=== PATIENT | male | born 1960 | race Caucasian/White ===

== ENCOUNTER 2019-12-02 14:25 | Emergency (ER) | payer OTHER, SELFPAY ==
[2019-12-02 14:28] VITALS: BP 117/83; PULSE 91; RESP 18; TEMP 36.7; O2SAT 96; BMI 29.2
--- NOTE | 2019-12-02 15:09 | ECG_ITS ---
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 [email or web address] specialty [email or web address] - [facility], inc.[employer]/store/NU/[id number] lila
--- NOTE | 2019-12-02 15:09 | XR_ITS ---
WS: [id number] PORTABLE CHEST HISTORY: chest pain COMPARISON: 03/07/2017 Lungs are clear and well expanded. No pleural effusion or pneumothorax. Cardiac size: Normal. Mediastinum/Aorta: Normal mediastinum. No osseous abnormality seen. XR/XR chest 1V portable [id number] IMPRESSION: Unremarkable portable chest.
--- NOTE | 2019-12-02 15:19 | W.ED.CHESTPA ---
HPI - Chest Pain General: Chief Complaint: Chest Pain Stated Complaint: cp Time Seen by Provider: 12/02/19 15:09 History of Present Illness: HPI narrative: 89-year-old male comes in complaining of dyspnea and fatigue for the last week. He has had a chest tightness he describes for the last 3 to 4 days has not had any nausea vomiting or diarrhea. He has been diaphoretic when he is working outside at times though he feels like it is more than is normal for him. He has not had any nose and insomnia. He has no known history of coronary artery disease or stroke. He denies any GI or symptoms is not had any hematemesis hematic keys the monitor he hematochezia. No respiratory symptoms besides just vaguely feeling short of breath at times he denies any fever. MD complaint: chest heaviness Pertinent past history: other (DM) Onset (ago): week(s) (1) Timing of current episode: episodic Prior episodes: Yes Onset: during rest and during exertion Pain location: substernal and left chest Pain radiation: none Severity: moderate Quality: tightness Relieving factors: rest Associated symptoms: Reports diaphoresis, dyspnea and fever(s); Deny abdominal pain, nausea or vomiting Treatment prior to arrival: none Review of Systems Const: Reports: fever(s) and diaphoresis ENMT: Denies: throat pain, ear or mastoid pain, nasal discharge or nasal congestion Card: Denies: chest pain, edema, dyspnea on exertion or orthopnea Resp: Reports: dyspnea GI: Denies: abdominal pain, nausea, vomiting, hematemesis, coffee ground emesis, diarrhea, constipation, bloating, hematochezia or melena : Denies: flank pain, dysuria, urinary frequency or urinary urgency Skin/Breast: Denies: rash or pruritus PFS ED PFSH: Medical History (Updated 12/02/19 @ 18:14 by Spencer Naylor DO) Diabetes mellitus Hyperlipidemia Hypertension Surgical History (Updated 12/02/19 @ 15:26 by Spencer Naylor DO) Hx of cholecystectomy Social History (Updated 12/02/19 @ 15:26 by Spencer Naylor DO) Smoking and tobacco status: never smoked Alcohol intake: never Physical Exam Const: COMMON NORMALS: no acute distress GENERAL APPEARANCE: cooperative and comfortable ORIENTATION/CONSCIOUSNESS: Yes awake, Yes oriented to person, Yes oriented to place and Yes oriented to time Eye: COMMON NORMALS: Equal, round and reactive pupils present, EOMs intact bilaterally, conjunctivae normal and no scleral icterus CONJUNCTIVA: Yes conjunctivae normal PUPIL: Yes Equal, round and reactive pupils present Neck/C-Spine: COMMON NORMALS: full ROM, no lymphadenopathy, supple and no JVD Lymph: LYMPHATIC: no lymphadenopathy noted and no lymphedema noted Resp: COMMON NORMALS: normal respiratory effort, No retractions, No use of accessory muscles and clear to auscultation bilaterally AUSCULTATION: clear to auscultation bilaterally Cardio: COMMON NORMALS: no JVD, regular rate, regular rhythm and No murmurs present (Cardio) RATE: regular rate RHYTHM: regular rhythm GI: COMMON NORMALS: Soft to palpation and No hepatosplenomegaly present AUSCULTATION: Yes normoactive bowel sounds PALPATION: Yes Soft to palpation, No Tenderness to palpation present (GI), No Guarding due to palpation present (GI) and Yes No hepatosplenomegaly present Extremity: COMMON NORMALS: normal to inspection, capillary refill normal, no clubbing, cyanosis or edema, no calf tenderness and no pedal edema Neuro: SENSORIUM/ORIENTATION: Yes oriented to person, Yes oriented to place and Yes oriented to time Skin: COMMON NORMALS: no rashes or lesions noted GENERAL SKIN EXAM: no rashes or lesions noted Course Vital Signs: Vital signs: Vital Signs Temperature 98.1 F 12/02/19 14:28 Pulse Rate 84 12/02/19 18:38 Respiratory Rate 18 12/02/19 18:38 Blood Pressure 120/81 12/02/19 18:38 Pulse Oximetry 97 12/02/19 18:38 MDM - Chest Pain MDM Narrative: Medical decision making narrative: Reviewed findings with the patient. We will go and get him set up for a sestamibi stress test continue baby aspirin daily for worsening change symptoms return to the emergency room. Lab Data: Labs: Lab Results 12/02/19 12/02/19 12/02/19 Range/Units 15:34 15:34 15:34 WBC 6.3 (4.0-10.0) 10^3/ uL RBC 4.53 (4.1-5.3) 10^6/u L Hgb 13.8 (11.7-16.6) g/dL Hct 40.9 L (42.0-52.0) % MCV 90.3 (80-94) fL MCH 30.5 (28.0-34.0) pg MCHC 33.7 (30.0-36.0) g/dL RDW 12.6 (12.1-15.1) % Plt Count 252 (130-400) 10^3/c mm MPV 11.0 H (7.4-10.4) fL Neut % (Auto) 64.6 % Lymph % (Auto) 22.4 % [place] % (Auto) 7.3 % Eos % (Auto) 4.4 % Baso % (Auto) 0.8 % Neut # (Auto) 4.07 (1.8-7.7) 10^3/u L Lymph # (Auto) 1.4 (0.8-4.8) 10^3/u L [place] # (Auto) 0.5 (0.2-0.9) 10^3/u L Eos # (Auto) 0.3 (0.0-0.8) 10^3/u L Baso # (Auto) 0.1 (0.0-0.1) 10^3/u L Nucleated RBC % (a uto) 0 % Nucleated RBCs # 0.0 /100WBC Sodium 133 L (136-145) mmol/L Potassium 4.9 (3.5-5.1) mmol/L Chloride 98 (98-107) mmol/L Carbon Dioxide 23 (22-29) mmol/L Anion Gap 16.9 (5-19) BUN 29 H (6-20) mg/dL Creatinine 1.2 (0.7-1.2) mg/dL GFR Calculation 62.0 L (90-130) mL/min Glucose 450 H (65-115) mg/dL Calculated Osmolal ity 293 (285-295) mOsm/k g Calcium 9.9 (8.5-10.5) mg/dL Total Bilirubin 0.2 (0.15-1.2) mg/dL AST 16 (0-40) U/L ALT 22 (0-41) U/L Alkaline Phosphata se 69 (40-130) IU/L Troponin T Baselin e 15 (0-15) ng/L Troponin T 120 Min [place] (0-15) ng/L Delta Troponin T (0-10) ABS# Total Protein 7.4 (6.6-8.7) g/dL Albumin 4.4 (3.5-5.2) g/dL Globulin 3.0 (1.3-4.6) g/dL 12/02/19 Range/Units 17:27 WBC (4.0-10.0) 10^3/ uL RBC (4.1-5.3) 10^6/u L Hgb (11.7-16.6) g/dL Hct (42.0-52.0) % MCV (80-94) fL MCH (28.0-34.0) pg MCHC (30.0-36.0) g/dL RDW (12.1-15.1) % Plt Count (130-400) 10^3/c mm MPV (7.4-10.4) fL Neut % (Auto) % Lymph % (Auto) % [place] % (Auto) % Eos % (Auto) % Baso % (Auto) % Neut # (Auto) (1.8-7.7) 10^3/u L Lymph # (Auto) (0.8-4.8) 10^3/u L [place] # (Auto) (0.2-0.9) 10^3/u L Eos # (Auto) (0.0-0.8) 10^3/u L Baso # (Auto) (0.0-0.1) 10^3/u L Nucleated RBC % (a uto) % Nucleated RBCs # /100WBC Sodium (136-145) mmol/L Potassium (3.5-5.1) mmol/L Chloride (98-107) mmol/L Carbon Dioxide (22-29) mmol/L Anion Gap (5-19) BUN (6-20) mg/dL Creatinine (0.7-1.2) mg/dL GFR Calculation (90-130) mL/min Glucose (65-115) mg/dL Calculated Osmolal ity (285-295) mOsm/k g Calcium (8.5-10.5) mg/dL Total Bilirubin (0.15-1.2) mg/dL AST (0-40) U/L ALT (0-41) U/L Alkaline Phosphata se (40-130) IU/L Troponin T Baselin e (0-15) ng/L Troponin T 120 Min [place] 12.70 (0-15) ng/L Delta Troponin T -2.30 L (0-10) ABS# Total Protein (6.6-8.7) g/dL Albumin (3.5-5.2) g/dL Globulin (1.3-4.6) g/dL Discharge Plan Discharge Patient Disposition: Home Clinical Impression: Atypical chest pain Condition: Stable Prescriptions: No Action polyethylene glycol 3350 17 gram Powder In Packet 34 g PO DAILY RF: 0 pantoprazole 40 mg tablet,delayed release (DR/EC) 40 mg PO BID RF: 0 pregabalin 150 mg Capsule 150 mg PO BID RF: 0 semaglutide 0.25 mg or 0.5 mg(2 mg/1.5 mL) Pen Injector See Rx Instructions .ROUTE .COMPLEX RF: 0 magnesium oxide 400 mg magnesium Tablet 400 mg PO DAILY RF: 0 amlodipine 5 mg Tablet 5 mg PO DAILY RF: 0 Aspirin Low Dose 81 mg Tablet,Delayed Release (Dr/Ec) 81 mg PO DAILY RF: 0 metoprolol tartrate 50 mg Tablet 25 mg PO DAILY RF: 0 Renal-Sylvester 0.8 mg Tablet 1 tab PO DAILY RF: 0 hydrochlorothiazide 25 mg Tablet 12.5 mg PO DAILY RF: 0 lisinopril 2.5 mg Tablet 2.5 mg PO DAILY RF: 0 cholecalciferol (vitamin D3) 25 mcg (1,000 unit) Tablet 25 mcg PO DAILY RF: 0 alogliptin 25 mg Tablet 25 mg PO DAILY RF: 0 Discharge Orders: Discharge Order (Routine); Ordered 12/02/19 Ordered By: Spencer Naylor Referrals: Laron Chauhan [Primary Care Provider] - Discharge Diet: Advance as tolerated Discharge Activity: Limit activity as instructed Activity Restrictions/Additional Instructions: Case management will call to set up a stress test and follow-up with cardiology. Follow-up with your primary care doctor for further evaluation as we discussed. Discharge Date/Time: 12/02/19 18:40 Coding Level of Care Code ED Biomass Plant Manager for Randyg Fwd Exam Comprehensive
[2019-12-02] MEDS: aspirin 81 mg Chew Tablet 324 MG PO (15:35)
[2019-12-02 15:40] LABS: Basophils # 0.1 10^3/uL (0.0-0.1); Basophils % 0.8 %; Eosinophils # 0.3 10^3/uL (0.0-0.8); Eosinophils % 4.4 %; Hematocrit 40.9 % (42.0-52.0); Hemoglobin 13.8 g/dL (11.7-16.6); Lymphocytes # 1.4 10^3/uL (0.8-4.8); Lymphocytes % 22.4 %; Mean Corpuscular HGB Conc 33.7 g/dL (30.0-36.0); Mean Corpuscular Hemoglobin 30.5 pg (28.0-34.0); Mean Corpuscular Volume 90.3 fL (80-94); Monocytes # 0.5 10^3/uL (0.2-0.9); Monocytes % 7.3 %; Neutrophils # 4.07 10^3/uL (1.8-7.7); Neutrophils % 64.6 %; Nucleated Red Blood Cells % 0 %; Platelet Count 252 10^3/cmm (130-400); Red Blood Count 4.53 10^6/uL (4.1-5.3); Red Cell Distribution Width 12.6 % (12.1-15.1); White Blood Count 6.3 10^3/uL (4.0-10.0)
[2019-12-02 15:55] LABS: Alanine Aminotransferase 22 U/L (0-41); Albumin Level 4.4 g/dL (3.5-5.2); Alkaline Phosphatase 69 IU/L (40-130); Anion Gap 16.9 (5-19); Aspartate Amino Transferase 16 U/L (0-40); Blood Urea Nitrogen 29 mg/dL (6-20); Calcium 9.9 mg/dL (8.5-10.5); Carbon Dioxide 23 mmol/L (22-29); Chloride 98 mmol/L (98-107); Glucose 450 mg/dL (65-115); Osmolality Calculated 293 mOsm/kg (285-295); Potassium 4.9 mmol/L (3.5-5.1); Sodium 133 mmol/L (136-145); Total Bilirubin 0.2 mg/dL (0.15-1.2); Total Protein 7.4 g/dL (6.6-8.7)
[2019-12-02 15:57] LABS: Troponin(5th) Baseline 15 ng/L (0-15)
--- NOTE | 2019-12-02 17:09 | ECG_ITS ---
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 Measurements Intervals [place] Rate: 81 P: 37 TN: 194 QRS: -36 QRSD: 109 T: 25 QT: 367 QTc: 427 Interpretive Statements SINUS RHYTHM LEFT AXIS DEVIATION [QRS AXIS < -30] PATTERN CONSISTENT WITH PULMONARY DISEASE SEPTAL MYOCARDIAL INFARCTION , PROBABLY OLD [40+ ms Q WAVE IN V1/V2] Compared to ECG 12/02/2019 14:33:14 No significant changes Electronically Signed On 12-02-2019 20:41:14 CDT by Abdirizak Brewer M.D. [email or web address]/NU/[id number] lila
[2019-12-02 18:38] VITALS: BP 120/81; PULSE 84; RESP 18; O2SAT 97
--- NOTE | 2019-12-04 10:53 | DCPLANNER ---
manager company had message to schedule an outpatient stress test for patient. Patient has [facility], patient will have to be seen at [facility] and the physician at [facility] will need to order stress test if deemed necessary. manager company called [facility], spoke with Delfina, gave her the patients information. Clinic will call patient with appointment information. manager company called August with the [place] and told her that patient was seen in the ED and needed follow up with [facility].
--- NOTE | 2019-12-17 08:27 | DCPLANNER ---
Patient had a follow up appointment scheduled for 12.10.19 with [facility] - patient did attend appointment.
== END 2019-12-02 18:40 | disposition home or self-care (01) ==
PROVIDERS: Emergency Provider Family Medicine; PCP Internal Medicine
DX: R07.89 Other chest pain (principal); Z79.82 Long term (current) use of aspirin; E11.9 Type 2 diabetes mellitus without complications; E78.5 Hyperlipidemia, unspecified; I10 Essential (primary) hypertension
CPT/HCPCS: 12345; 36415; 71045; 80053; 84484; 85025; 93005; 99281; 99284

== ENCOUNTER → 2020-01-05 09:36 | Outpatient (BNVA) | payer OTHER, SELFPAY | PROVIDERS: PCP Family Medicine; Referring Provider Family Medicine; Visit Provider Anesthesiology Pain Medicine | DX: M54.16 Radiculopathy, lumbar region (principal); M47.816 Spondylosis without myelopathy or radiculopathy, lumbar region; M51.36 Other intervertebral disc degeneration, lumbar region; M54.9 Dorsalgia, unspecified; M19.011 Primary osteoarthritis, right shoulder; M62.830 Muscle spasm of back | CPT/HCPCS: 99205 ==

== ENCOUNTER 2020-04-12 16:32 | Emergency (ER) | payer OTHER, SELFPAY ==
[2020-04-12 16:34] VITALS: BP 127/85; PULSE 96; RESP 18; TEMP 36.4; O2SAT 96; BMI 28.8
[2020-04-12 16:56] LABS: Glucose Point of Care > 600 mg/dL (70-110)
--- NOTE | 2020-04-12 17:08 | W.ED.RECABL ---
HPI - Recheck/Abnormal Lab/Rx General: Chief Complaint: Recheck/Abnormal Lab/Rx Stated Complaint: Unusual Blood Sugar Levels Time Seen by Provider: 04/12/20 17:03 Source: patient Mode of arrival: ambulatory Limitations: no limitations History of Present Illness: HPI narrative: 59-year-old male who states that he has been out of his diabetic medicines for the last month. He [facility] and it was high. He states he had some slight thirstiness but otherwise he feels fine and has no complaints. He states he sent him here due to his high blood sugar. He denies any worsening or improving factors. Review of Systems Const: Denies: fever(s), chills, body aches or change in appetite Eyes: Denies: blurry vision or eye discomfort ENMT: Denies: throat pain or dental pain Card: Denies: chest pain Resp: Denies: dyspnea GI: Denies: abdominal pain, nausea, vomiting or diarrhea : Denies: dysuria Musc: Denies: neck pain or back pain Skin/Breast: Denies: rash Neuro: Denies: headache(s) Psych: Denies: depression Tono/Lymph: Denies: easy bruising All/Imm: Denies: urticaria PFSH ED PFSH: Medical History (Updated 04/12/20 @ 17:47 by Sakshi Henderson MD) Diabetes mellitus Hyperlipidemia Hypertension Surgical History Hx of cholecystectomy Family History Denies family history of Anesthesia complication Social History Smoking and tobacco status: never smoked Alcohol intake: never Physical Exam Const: COMMON NORMALS: no acute distress, patient oriented x3 and healthy appearing HENMT: COMMON NORMALS: normocephalic and atraumatic HEAD & SCALP: normocephalic and atraumatic Eye: COMMON NORMALS: Equal, round and reactive pupils present and EOMs intact bilaterally PUPIL: Yes Equal, round and reactive pupils present Neck/C-Spine: COMMON NORMALS: full ROM and supple Chest: COMMONS NORMALS: normal inspection of the chest and normal palpation of entire chest wall Resp: COMMON NORMALS: normal respiratory effort, No retractions, No use of accessory muscles and clear to auscultation bilaterally AUSCULTATION: clear to auscultation bilaterally Cardio: COMMON NORMALS: regular rate, regular rhythm and No murmurs present (Cardio) RATE: regular rate RHYTHM: regular rhythm GI: COMMON NORMALS: Normal to inspection, nondistended, normoactive bowel sounds present, Soft to palpation, non-tender and no masses PALPATION: Yes Soft to palpation Extremity: COMMON NORMALS: normal to inspection and full ROM Neuro: COMMON NORMALS: patient oriented x3, moves all extremities and no focal motor deficits Psych: COMMON NORMALS: mental status grossly normal, Normal thought process present and cooperative THOUGHT PROCESS: Normal thought process present Skin: COMMON NORMALS: no rashes or lesions noted and no wounds GENERAL SKIN EXAM: no rashes or lesions noted Course Vital Signs: Vital signs: Vital Signs Temperature 97.5 F L 04/12/20 16:34 Pulse Rate 84 04/12/20 19:07 Respiratory Rate 15 04/12/20 19:07 Blood Pressure 131/85 04/12/20 19:07 Pulse Oximetry 94 04/12/20 19:07 MDM - Recheck/Abnormal Lab/Rx MDM Narrative: Medical decision making narrative: Patient presents here with hyperglycemia due to noncompliance. Will represcribe him his diabetic medicines. He is not in DKA and his blood sugar is much improved. He is stable for discharge and is to follow-up his PCP in 3 to 5 days and return if worsening. He understands agrees to plan. Lab Data: Labs: Lab Results 04/12/20 04/12/20 04/12/20 Range/Units 16:51 17:10 17:10 WBC 10.8 H (4.0-10.0) 10^3/ uL RBC 4.96 (4.1-5.3) 10^6/u L Hgb 15.1 (11.7-16.6) g/dL Hct 44.9 (42.0-52.0) % MCV 90.5 (80-94) fL MCH 30.4 (28.0-34.0) pg MCHC 33.6 (30.0-36.0) g/dL RDW 12.0 L (12.1-15.1) % Plt Count 260 (130-400) 10^3/c mm MPV 11.1 H (7.4-10.4) fL Neut % (Auto) 71.1 % Lymph % (Auto) 16.7 % [place] % (Auto) 6.8 % Eos % (Auto) 3.6 % Baso % (Auto) 0.8 % Neut # (Auto) 7.69 (1.8-7.7) 10^3/u L Lymph # (Auto) 1.8 (0.8-4.8) 10^3/u L [place] # (Auto) 0.7 (0.2-0.9) 10^3/u L Eos # (Auto) 0.4 (0.0-0.8) 10^3/u L Baso # (Auto) 0.1 (0.0-0.1) 10^3/u L Nucleated RBC % (a uto) 0 % Nucleated RBCs # 0.0 /100WBC Sodium 128 L (136-145) mmol/L Potassium 4.5 (3.5-5.1) mmol/L Chloride 94 L (98-107) mmol/L Carbon Dioxide 24 (22-29) mmol/L Anion Gap 14.5 (5-19) BUN 28 H (6-20) mg/dL Creatinine 1.5 H (0.7-1.2) mg/dL GFR Calculation 47.9 L (90-130) mL/min Glucose 631 H* (65-115) mg/dL POC Glucose > 600 (70-110) mg/dL Calculated Osmolal ity 301 H (285-295) mOsm/k g Calcium 9.8 (8.5-10.5) mg/dL Total Bilirubin 0.3 (0.15-1.2) mg/dL AST 13 (0-40) U/L ALT 18 (0-41) U/L Alkaline Phosphata se 103 (40-130) IU/L Total Protein 8.3 (6.6-8.7) g/dL Albumin 4.8 (3.5-5.2) g/dL Globulin 3.5 (1.3-4.6) g/dL 04/12/20 04/12/20 Range/Units 18:17 19:00 WBC (4.0-10.0) 10^3/ uL RBC (4.1-5.3) 10^6/u L Hgb (11.7-16.6) g/dL Hct (42.0-52.0) % MCV (80-94) fL MCH (28.0-34.0) pg MCHC (30.0-36.0) g/dL RDW (12.1-15.1) % Plt Count (130-400) 10^3/c mm MPV (7.4-10.4) fL Neut % (Auto) % Lymph % (Auto) % [place] % (Auto) % Eos % (Auto) % Baso % (Auto) % Neut # (Auto) (1.8-7.7) 10^3/u L Lymph # (Auto) (0.8-4.8) 10^3/u L [place] # (Auto) (0.2-0.9) 10^3/u L Eos # (Auto) (0.0-0.8) 10^3/u L Baso # (Auto) (0.0-0.1) 10^3/u L Nucleated RBC % (a uto) % Nucleated RBCs # /100WBC Sodium (136-145) mmol/L Potassium (3.5-5.1) mmol/L Chloride (98-107) mmol/L Carbon Dioxide (22-29) mmol/L Anion Gap (5-19) BUN (6-20) mg/dL Creatinine (0.7-1.2) mg/dL GFR Calculation (90-130) mL/min Glucose (65-115) mg/dL POC Glucose 443 335 (70-110) mg/dL Calculated Osmolal ity (285-295) mOsm/k g Calcium (8.5-10.5) mg/dL Total Bilirubin (0.15-1.2) mg/dL AST (0-40) U/L ALT (0-41) U/L Alkaline Phosphata se (40-130) IU/L Total Protein (6.6-8.7) g/dL Albumin (3.5-5.2) g/dL Globulin (1.3-4.6) g/dL Discharge Plan Discharge Patient Disposition: Home Clinical Impression: Hyperglycemia Condition: Stable Prescriptions: Continued alogliptin 25 mg Tablet 25 mg PO DAILY Qty: 30 RF: 0 Discontinued pregabalin 150 mg Capsule 150 mg PO BID RF: 0 No Action nitroglycerin 0.4 mg tablet, sublingual 0.4 mg SUBLINGUAL Q5M PRN (Reason: chest pain) Qty: 25 RF: 2 tizanidine 2 mg tablet 2 mg PO BID PRN (Reason: muscle spasticity) Qty: 60 RF: 0 methylprednisolone acetate [Depo-Medrol] 40 mg/mL suspension 40 mg Infiltration ONCE Qty: 1 RF: 0 bupivacaine (PF) 0.25 % (2.5 mg/mL) solution 5 ml Infiltration ONCE Qty: 1 RF: 0 methylprednisolone acetate [Depo-Medrol] 40 mg/mL suspension 40 mg Infiltration ONCE Qty: 1 RF: 0 bupivacaine (PF) 0.25 % (2.5 mg/mL) solution 2 ml epidural ONCE Qty: 1 RF: 0 pregabalin 150 mg Capsule 150 mg PO BID RF: 0 polyethylene glycol 3350 [Miralax] 17 gram Powder In Packet 34 g PO DAILY RF: 0 pantoprazole 40 mg tablet,delayed release (DR/EC) 40 mg PO BID RF: 0 semaglutide 0.25 mg or 0.5 mg(2 mg/1.5 mL) Pen Injector See Rx Instructions .ROUTE .COMPLEX RF: 0 magnesium oxide 400 mg magnesium Tablet 400 mg PO DAILY RF: 0 amlodipine 5 mg Tablet 5 mg PO DAILY RF: 0 aspirin [Aspirin Low Dose] 81 mg Tablet,Delayed Release (Dr/Ec) 81 mg PO DAILY RF: 0 metoprolol tartrate 50 mg Tablet 25 mg PO DAILY RF: 0 hydrochlorothiazide 25 mg Tablet 12.5 mg PO DAILY RF: 0 lisinopril 2.5 mg Tablet 2.5 mg PO DAILY RF: 0 cholecalciferol (vitamin D3) 25 mcg (1,000 unit) Tablet 25 mcg PO DAILY RF: 0 Discharge Orders: Discharge ED (Routine); Ordered 04/12/20 Ordered By: Sakshi Henderson Referrals: Pam Diaz MD [Primary Care Provider] - Discharge Diet: Advance as tolerated Discharge Activity: Resume usual activity Patient Instructions: Diabetic Hyperglycemia (ED) Coding Level of Care Code ED Clam Grader for Chg Fwd Exam Comprehensive
[2020-04-12] MEDS: sodium chloride 0.9% 1,000 ML 999 ML IV ×2 (17:15→17:58)
[2020-04-12] MEDS: insulin regular-human 100 units/1 mL 13 UNIT IVP (17:15)
[2020-04-12 17:22] VITALS: BP 125/97; PULSE 94; RESP 16; O2SAT 97
[2020-04-12 17:34] LABS: Basophils # 0.1 10^3/uL (0.0-0.1); Basophils % 0.8 %; Eosinophils # 0.4 10^3/uL (0.0-0.8); Eosinophils % 3.6 %; Hematocrit 44.9 % (42.0-52.0); Hemoglobin 15.1 g/dL (11.7-16.6); Lymphocytes # 1.8 10^3/uL (0.8-4.8); Lymphocytes % 16.7 %; Mean Corpuscular HGB Conc 33.6 g/dL (30.0-36.0); Mean Corpuscular Hemoglobin 30.4 pg (28.0-34.0); Mean Corpuscular Volume 90.5 fL (80-94); Mean Platelet Volume 11.1 fL (7.4-10.4); Monocytes # 0.7 10^3/uL (0.2-0.9); Monocytes % 6.8 %; Neutrophils # 7.69 10^3/uL (1.8-7.7); Neutrophils % 71.1 %; Nucleated Red Blood Cells % 0 %; Platelet Count 260 10^3/cmm (130-400); Red Blood Count 4.96 10^6/uL (4.1-5.3); White Blood Count 10.8 10^3/uL (4.0-10.0)
[2020-04-12] MEDS: LORazepam 2 mg/mL INJ 1 mL 1 MG IVP (18:11)
[2020-04-12 18:20] LABS: Glucose Point of Care 443 mg/dL (70-110)
[2020-04-12 18:29] LABS: Alanine Aminotransferase 18 U/L (0-41); Albumin Level 4.8 g/dL (3.5-5.2); Alkaline Phosphatase 103 IU/L (40-130); Anion Gap 14.5 (5-19); Aspartate Amino Transferase 13 U/L (0-40); Blood Urea Nitrogen 28 mg/dL (6-20); Calcium 9.8 mg/dL (8.5-10.5); Carbon Dioxide 24 mmol/L (22-29); Chloride 94 mmol/L (98-107); Globulin 3.5 g/dL (1.3-4.6); Glomerular Filtration Rate 47.9 mL/min (90-130); Osmolality Calculated 301 mOsm/kg (285-295); Potassium 4.5 mmol/L (3.5-5.1); Sodium 128 mmol/L (136-145); Total Bilirubin 0.3 mg/dL (0.15-1.2); Total Protein 8.3 g/dL (6.6-8.7)
[2020-04-12 18:30] LABS: Glucose 631 mg/dL (65-115)
[2020-04-12 19:04] LABS: Glucose Point of Care 335 mg/dL (70-110)
[2020-04-12 19:07] VITALS: BP 131/85; PULSE 84; RESP 15; O2SAT 94
== END 2020-04-12 19:08 | disposition home or self-care (01) ==
PROVIDERS: Emergency Provider Emergency Medicine; PCP Family Medicine
DX: E11.65 Type 2 diabetes mellitus with hyperglycemia (principal); Z79.82 Long term (current) use of aspirin; E78.5 Hyperlipidemia, unspecified; I10 Essential (primary) hypertension
CPT/HCPCS: 12345; 36416; 80053; 82962; 85025; 96361; 96374; 96375; 99283; J1815; J2060; J7030

== ENCOUNTER → 2020-09-12 09:46 | Outpatient (BNVA) | payer OTHER, SELFPAY | PROVIDERS: PCP Family Medicine; Referring Provider Family Medicine; Visit Provider Anesthesiology Pain Medicine | DX: M51.36 Other intervertebral disc degeneration, lumbar region (principal); M51.16 Intervertebral disc disorders with radiculopathy, lumbar region; M47.816 Spondylosis without myelopathy or radiculopathy, lumbar region; M54.9 Dorsalgia, unspecified; M25.511 Pain in right shoulder; M19.019 Primary osteoarthritis, unspecified shoulder; M62.830 Muscle spasm of back; Z79.891 Long term (current) use of opiate analgesic | CPT/HCPCS: 99214 ==

== ENCOUNTER 2020-09-14 11:45 | Emergency (ER) | payer OTHER, SELFPAY ==
[2020-09-14 12:02] VITALS: PULSE 122; RESP 18; TEMP 37.9; O2SAT 98; BMI 29.2
--- NOTE | 2020-09-14 12:35 | XR_ITS ---
WS: [id number] Portable AP upright chest, 09/14/2020 Clinical Data: fever/chills Comparison: Portable Chest, 12/02/2019. Findings: No nodules, masses or effusions are seen. The heart is normal. The pulmonary vascularity is not increased. No pneumonia or pneumothorax is seen. XR/XR chest 1V portable [id number] Impression: Negative chest.
== END 2020-09-14 14:42 | disposition left against medical advice (07) ==
DX: Z53.21 Procedure and treatment not carried out due to patient leaving prior to being seen by health care provider (principal)
CPT/HCPCS: 71045; 99282

== ENCOUNTER → 2020-10-20 10:37 | Outpatient (BNVA) | payer OTHER, SELFPAY | PROVIDERS: PCP Family Medicine; Visit Provider Anesthesiology Pain Medicine | DX: M51.16 Intervertebral disc disorders with radiculopathy, lumbar region (principal); M51.36 Other intervertebral disc degeneration, lumbar region; M47.816 Spondylosis without myelopathy or radiculopathy, lumbar region; M19.011 Primary osteoarthritis, right shoulder; M54.9 Dorsalgia, unspecified; M62.830 Muscle spasm of back; Z79.891 Long term (current) use of opiate analgesic | CPT/HCPCS: 99213 ==

== ENCOUNTER 2020-10-31 16:57 | Outpatient (CLI) | payer OTHER, SELFPAY ==
--- NOTE | 2020-10-31 17:30 | MR_ITS ---
WS: [id number] MRI LUMBAR SPINE NONCONTRAST HISTORY: M51.16 - Intervertebral disc disorders with radiculopathy..., LEFT leg radiculopathy. COMPARISON: None available. TECHNIQUE: Sagittal and axial multisequence imaging is submitted. Mild straightening of the normal lumbar lordosis and LEFT curvature. L5 anterolisthesis by 3 mm. Moderate degenerative disc space narrowing and desiccation and vertebral body osteophytes. Small amou nt of marrow edema along the adjacent endplates of T12-L1. Conus terminates normally at L1-2 disc level. L1-L2: Mild annular disc bulging. No stenosis. L2-L3: Moderate annular disc bulging with mild ligamentum flavum disease and facet arthritis. LEFT pa racentral disc protrusion with mild encroachment into the LEFT lateral recess. Mild central and moder ate bilateral subarticular recess stenosis. Disc encroaches into the foramina without contact. Increa se fluid in the LEFT facet joint. L3-L4: Diffuse moderate annular disc bulging with a central disc protrusion. Mild bilateral ligamentu m flavum disease and facet arthritis. There is moderate central, bilateral lateral recess, subarticul ar recess and foraminal stenosis. L4-L5: Diffuse annular disc bulging and osteophytic ridging. Facet joint arthritis and ligamentum fla vum arthritis contributing to moderate to severe central, bilateral subarticular recess and foraminal stenosis. Suspect focal disc protrusion in the LEFT foramen. L5-S1: Mild annular disc bulging and osteophytic ridging. Severe LEFT foraminal stenosis. LEFT renal cyst, 13 mm. MR/MR lumbar spine wo con* [id number] IMPRESSION: 1. Multilevel stenoses as described above. 2. Severe LEFT foraminal stenosis at L5-S1 and osteophyte disease. 3. Moderate to severe central, bilateral subarticular recess and foraminal teodoro nosis at L4-5. Suspect additional focal disc protrusion in the LEFT foramen. 4. Moderate central, bilateral lateral recess, subarticular recess and foramin al stenosis at L3-4. 5. Mild central with moderate bilateral subarticular recess stenosis at L2-3.
== END 2020-10-31 16:58 | disposition home or self-care (01) ==
PROVIDERS: PCP Family Medicine; Visit Provider Anesthesiology Pain Medicine
DX: M51.16 Intervertebral disc disorders with radiculopathy, lumbar region (principal); M48.07 Spinal stenosis, lumbosacral region; M48.061 Spinal stenosis, lumbar region without neurogenic claudication
CPT/HCPCS: 72148

== ENCOUNTER 2020-11-25 09:54 | Emergency (ER) | payer OTHER, SELFPAY ==
[2020-11-25 10:35] VITALS: BP 124/73; PULSE 82; RESP 16; TEMP 36.7; O2SAT 98; BMI 29.2
--- NOTE | 2020-11-25 11:06 | ECG_ITS ---
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: : 1960 Requested By: Ren Joyner Order Number: [id number] Reading MD: EUGENIA GARDNER Measurements Intervals [place] Rate: 81 P: 5 HI: 156 QRS: -35 QRSD: 102 T: 29 QT: 358 QTc: 418 Interpretive Statements SINUS RHYTHM MARKED LEFT AXIS DEVIATION [QRS AXIS < -30] PATTERN CONSISTENT WITH PULMONARY DISEASE INTERPRETATION BASED ON A DEFAULT AGE OF 40 YEARS Compared to ECG 12/02/2019 17:29:23 Myocardial infarct finding no longer present Electronically Signed On 11-25-2020 19:24:21 CDT by EUGENIA GARDNER [id number] f
--- NOTE | 2020-11-25 11:06 | XR_ITS ---
WS: [id number] Portable AP upright chest, 11/25/2020 Clinical Data: Chest Pain Comparison: Portable chest, 09/14/2020. Findings: No nodules, masses or effusions are seen. The heart is normal. The pulmonary vascularity is not increased. No pneumonia or pneumothorax is seen. There are monitor leads on the chest wall. XR/XR chest 1V portable [id number] Impression: Negative chest.
--- NOTE | 2020-11-25 11:19 | W.ED.CHESTPA ---
HPI - Chest Pain General: Chief Complaint: Chest Pain Stated Complaint: CP yesterday-now resolved Time Seen by Provider: 11/25/20 11:17 History of Present Illness: HPI narrative: This patient is a 60-year-old male who presents to the emergency department with complaint of epigastric/substernal chest pain. States it hurts worse when he leans forward and easier when he leans back. Patient states he has been eating Rolaids for the past 24 hours without relief. Patient states he was also sweaty this morning and thought he needed to come get checked out. Patient states he has been referred to cardiology by the DC and is scheduled to get a stress test but has not happened yet. Patient denies any significant cardiac history. Will do medical evaluation treat as needed patient does have a history of hypertension and diabetes. MD complaint: chest pain Onset (ago): day(s) Timing of current episode: episodic and still present Onset: during exertion Pain location: substernal and epigastric Pain radiation: none Severity: moderate Quality: aching Relieving factors: nothing Exacerbating factors: nothing Associated symptoms: Reports abdominal pain and nausea; Deny dyspnea, fever(s), palpitations or vomiting Review of Systems General: Reports: 10 or more systems reviewed and unremarkable except in HPI and below Const: Denies: fever(s), chills, body aches or fatigue Eyes: Denies: change in vision or blurry vision ENMT: Denies: throat pain, hoarseness or mouth pain Card: Reports: chest pain; Denies: palpitations, irregular heart rhythm, edema, swelling of feet/ankles or lightheadedness Resp: Denies: dyspnea, productive cough, non-productive cough, wheezing or pain on inspiration GI: Reports: abdominal pain and nausea; Denies: vomiting : Denies: flank pain, dysuria, urinary frequency, urinary urgency or urinary hesitancy Musc: Denies: neck pain, back pain, extremity pain, extremity swelling, joint pain, joint swelling, joint redness, joint warmth or limited range of motion Skin/Breast: Denies: rash, pruritus, erythema or skin tenderness Neuro: Denies: headache(s), numbness in extremities or weakness in extremities Psych: Denies: anxiety or depression PFS ED PFSH: Medical History Diabetes mellitus 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 Hyperlipidemia Hypertension residential (current) use of opiate analgesic Pain management contract signed Surgical History Hx of appendectomy Hx of cholecystectomy Hx of foot surgery Family History Denies family history of Anesthesia complication Social History Smoking and tobacco status: never smoked Alcohol intake: never History of recent travel: No Physical Exam Const: COMMON NORMALS: no acute distress, average body habitus, patient oriented x3, no limitations, healthy appearing, alert and well nourished HENMT: COMMON NORMALS: normocephalic, atraumatic, hearing grossly normal bilaterally, external ears normal, EAC's normal, TM's normal bilaterally, Normal external nose present, Normal nasal mucous membranes and turbinates present, moist oral mucous membranes, oropharynx normal, dentition normal and gingiva normal HEAD & SCALP: normocephalic and atraumatic NOSE: Normal external nose present and Normal nasal mucous membranes and turbinates present EXTERNAL EAR: Yes external ears normal EXTERNAL AUDITORY CANAL: EAC's normal TYMPANIC MEMBRANE: TM's normal bilaterally Neck/C-Spine: COMMON NORMALS: full ROM, no lymphadenopathy, supple, no meningeal signs, no JVD, Thyroid normal and No carotid bruits THYROID: Thyroid normal Chest: COMMONS NORMALS: normal inspection of the chest, normal palpation of entire chest wall, normal inspection of the breasts and normal palpation of the breasts Breast/axilla inspection: Yes normal inspection of the breasts BREAST/AXILLA PALPATION: Yes normal palpation of the breasts Resp: COMMON NORMALS: normal respiratory effort, No retractions, No use of accessory muscles, clear to auscultation bilaterally and percussion normal AUSCULTATION: clear to auscultation bilaterally PERCUSSION: percussion normal Cardio: COMMON NORMALS: no JVD, regular rate, regular rhythm, S1 normal heart sound present, S2 normal heart sound present, No gallops present (Cardio), No clicks present (Cardio), No murmurs present (Cardio), No rub (Cardio) and Peripheral pulses 2+ throughout RATE: regular rate RHYTHM: regular rhythm HEART SOUNDS: S1 normal heart sound present and S2 normal heart sound present PERIPHERAL PULSES: Peripheral pulses 2+ throughout GI: COMMON NORMALS: Normal to inspection, nondistended, normoactive bowel sounds present, Soft to palpation, non-tender, No hepatosplenomegaly present, no masses and no bruits PALPATION: Yes Soft to palpation and Yes No hepatosplenomegaly present : COMMON NORMALS: Yes no CVA tenderness BLADDER/KIDNEY EXAM: Yes no CVA tenderness Back/Pelvis: COMMON NORMALS: no CVA tenderness, thoracic and lumbar spine normal to inspection, no thoracic nor lumbar tenderness, thoraco-lumbar ROM normal and straight leg raise negative bilaterally Extremity: COMMON NORMALS: normal to inspection, full ROM, capillary refill normal, no joint enlargement, no clubbing, cyanosis or edema, no calf tenderness and no pedal edema Neuro: COMMON NORMALS: patient oriented x3 SENSORIUM/ORIENTATION: Yes alert MENINGEAL SIGNS: Yes no meningeal signs Course Reevaluation(s): Reevaluation #1: Negative evaluation in the emergency department for any cardiac evaluation. Patient does have a history of esophageal spasms and a hiatal hernia and a long history of reflux issues. We did discuss only with patient options. Patient will need follow-up with GI for an outpatient EGD patient should call for an appointment. Patient states understanding. Patient be placed on Protonix daily. Patient states understanding. Patient should encourage p.o. fluids and advance diet slowly. Once pain-free Time: 14:26 Vital Signs: Vital signs: Vital Signs Temperature 98.1 F 11/25/20 10:35 Pulse Rate 85 11/25/20 14:12 Respiratory Rate 16 11/25/20 14:12 Blood Pressure 147/95 11/25/20 14:12 Pulse Oximetry 98 11/25/20 14:12 MDM - Chest Pain MDM Narrative: Medical decision making narrative: This patient is a 60-year-old male who presents to the emergency department with complaint of epigastric/substernal chest pain. States it hurts worse when he leans forward and easier when he leans back. Patient states he has been eating Rolaids for the past 24 hours without relief. Patient states he was also sweaty this morning and thought he needed to come get checked out. Patient states he has been referred to cardiology by the DC and is scheduled to get a stress test but has not happened yet. Patient denies any significant cardiac history. Will do medical evaluation treat as needed patient does have a history of hypertension and diabetes. Negative evaluation in the emergency department for any cardiac evaluation. Patient does have a history of esophageal spasms and a hiatal hernia and a long history of reflux issues. We did discuss only with patient options. Patient will need follow-up with GI for an outpatient EGD patient should call for an appointment. Patient states understanding. Patient be placed on Protonix daily. Patient states understanding. Patient should encourage p.o. fluids and advance diet slowly. Once pain-free Medical Records: Attestation: I reviewed the patient's medical records. Lab Data: Attestation: I reviewed the patient's lab results. Labs: Lab Results 11/25/20 11/25/20 11/25/20 Range/Units 11:34 11:34 11:34 WBC 9.1 (4.0-10.0) 10^3/ uL RBC 4.08 L (4.1-5.3) 10^6/u L Hgb 12.5 (11.7-16.6) g/dL Hct 37.7 L (42.0-52.0) % MCV 92.4 (80-94) fL MCH 30.6 (28.0-34.0) pg MCHC 33.2 (30.0-36.0) g/dL RDW 13.6 (12.1-15.1) % Plt Count 270 (130-400) 10^3/c mm MPV 10.3 (7.4-10.4) fL Neut % (Auto) 74.1 % Lymph % (Auto) 15.5 % [place] % (Auto) 5.4 % Eos % (Auto) 3.9 % Baso % (Auto) 0.7 % Neut # (Auto) 6.76 (1.8-7.7) 10^3/u L Lymph # (Auto) 1.4 (0.8-4.8) 10^3/u L [place] # (Auto) 0.5 (0.2-0.9) 10^3/u L Eos # (Auto) 0.4 (0.0-0.8) 10^3/u L Baso # (Auto) 0.1 (0.0-0.1) 10^3/u L Nucleated RBC % (a uto) 0 % Nucleated RBCs # 0.0 /100WBC PT 14.50 (12.1-14.9) SECO NDS INR 1.09 (0.8-1.2) APTT 27.9 (23.9-36.7) SECO NDS Sodium 136 (136-145) mmol/L Potassium 4.1 (3.5-5.1) mmol/L Chloride 105 (98-107) mmol/L Carbon Dioxide 22 (22-29) mmol/L Anion Gap 13.1 (5-19) BUN 24 H (8-23) mg/dL Creatinine 0.9 (0.7-1.2) mg/dL GFR Calculation 86.1 L (90-130) mL/min Glucose 120 H (65-115) mg/dL Calculated Osmolal ity 287 (285-295) mOsm/k g Calcium 9.0 (8.5-10.5) mg/dL Total Bilirubin 0.4 (0.15-1.2) mg/dL AST 18 (0-40) U/L ALT 21 (0-41) U/L Alkaline Phosphata se 59 (40-130) IU/L Troponin T Baselin e (0-15) ng/L Troponin T 120 Min [place] (0-15) ng/L Delta Troponin T (0-10) ABS# NT-Pro-B Natriuret Pep 273 H (0-125) pg/mL Total Protein 6.8 (6.6-8.7) g/dL Albumin 4.1 (3.5-5.2) g/dL Globulin 2.7 (1.3-4.6) g/dL 11/25/20 11/25/20 Range/Units 11:34 13:54 WBC (4.0-10.0) 10^3/ uL RBC (4.1-5.3) 10^6/u L Hgb (11.7-16.6) g/dL Hct (42.0-52.0) % MCV (80-94) fL MCH (28.0-34.0) pg MCHC (30.0-36.0) g/dL RDW (12.1-15.1) % Plt Count (130-400) 10^3/c mm MPV (7.4-10.4) fL Neut % (Auto) % Lymph % (Auto) % [place] % (Auto) % Eos % (Auto) % Baso % (Auto) % Neut # (Auto) (1.8-7.7) 10^3/u L Lymph # (Auto) (0.8-4.8) 10^3/u L [place] # (Auto) (0.2-0.9) 10^3/u L Eos # (Auto) (0.0-0.8) 10^3/u L Baso # (Auto) (0.0-0.1) 10^3/u L Nucleated RBC % (a uto) % Nucleated RBCs # /100WBC PT (12.1-14.9) SECO NDS INR (0.8-1.2) APTT (23.9-36.7) SECO NDS Sodium (136-145) mmol/L Potassium (3.5-5.1) mmol/L Chloride (98-107) mmol/L Carbon Dioxide (22-29) mmol/L Anion Gap (5-19) BUN (8-23) mg/dL Creatinine (0.7-1.2) mg/dL GFR Calculation (90-130) mL/min Glucose (65-115) mg/dL Calculated Osmolal ity (285-295) mOsm/k g Calcium (8.5-10.5) mg/dL Total Bilirubin (0.15-1.2) mg/dL AST (0-40) U/L ALT (0-41) U/L Alkaline Phosphata se (40-130) IU/L Troponin T Baselin e 13 (0-15) ng/L Troponin T 120 Min [place] 11.76 (0-15) ng/L Delta Troponin T -1.24 L (0-10) ABS# NT-Pro-B Natriuret Pep (0-125) pg/mL Total Protein (6.6-8.7) g/dL Albumin (3.5-5.2) g/dL Globulin (1.3-4.6) g/dL Imaging Data^: CXR: Attestation: I personally reviewed and interpreted this imaging study as follows: Radiologist's impression: Findings: No nodules, masses or effusions are seen. The heart is normal. The pulmonary vascularity is not increased. No pneumonia or pneumothorax is seen. There are monitor leads on the chest wall. XR/XR chest 1V portable [id number] Impression: Negative chest. EKG Data^: EKG 1: Attestation: I personally reviewed and interpreted this EKG as follows: EKG interpretation date: 11/25/20 EKG interpretation time: 10:41 Prior EKG tracings: not available for review Interpretation: Sinus rhythm with marked left axis deviation. Question of pulmonary pattern. Heart rate 81 EKG 2: Attestation: I personally reviewed and interpreted this EKG as follows: EKG interpretation date: 11/25/20 EKG interpretation time: 12:58 Prior EKG tracings: available for review Interpretation: Sinus rhythm with left axis deviation heart rate 79 unchanged from previous EKG Discharge Plan Discharge Patient Disposition: Home Clinical Impression: Gastroesophageal reflux disease with esophagitis, History of hiatal hernia Condition: Stable Prescriptions: New Protonix 40 mg tablet,delayed release (DR/EC) 40 mg PO DAILY Qty: 30 RF: 0 No Action nitroglycerin 0.4 mg tablet, sublingual 0.4 mg SUBLINGUAL Q5M PRN (Reason: chest pain) Qty: 25 RF: 3 (DME) Diabetic Shoes with 3 sets of inserts See Rx Instructions .ROUTE .MEDSUPPLY Qty: 1 RF: 0 (DME) Custom Molded Accomodative Orthotics See Rx Instructions .Route .MEDSUPPLY Qty: 1 RF: 0 pregabalin 150 mg Capsule 150 mg PO BID RF: 0 polyethylene glycol 3350 [Miralax] 17 gram Powder In Packet 34 g PO DAILY PRN (Reason: Constipation) RF: 0 pantoprazole 40 mg tablet,delayed release (DR/EC) 40 mg PO BID RF: 0 semaglutide 0.25 mg or 0.5 mg(2 mg/1.5 mL) Pen Injector See Rx Instructions .ROUTE .COMPLEX RF: 0 magnesium oxide 400 mg magnesium Tablet 400 mg PO DAILY RF: 0 aspirin [Aspirin Low Dose] 81 mg Tablet,Delayed Release (Dr/Ec) 81 mg PO DAILY RF: 0 lisinopril 2.5 mg Tablet 2.5 mg PO DAILY RF: 0 cholecalciferol (vitamin D3) 25 mcg (1,000 unit) Tablet 25 mcg PO DAILY RF: 0 metoprolol succinate 100 mg Tablet Extended Release 24 Hr 50 mg PO DAILY RF: 0 Crestor 5 mg Tablet 5 mg PO BEDTIME RF: 0 Discharge Orders: Discharge ED (Routine); Ordered 11/25/20 Ordered By: Ren Joyner Referrals: Pam Diaz MD [Primary Care Provider] - Discharge Diet: Clear Liquid Discharge Activity: Resume usual activity Patient Instructions: Opioid Safety Activity Restrictions/Additional Instructions: Encourage p.o. fluids. Clear liquid diet and advance diet slowly once pain-free. Follow-up with Dr. Brenda TELLO to schedule an outpatient EGD. Take medications as prescribed. Coding Level of Care Code ED Manager Purchasing for [employer] Exam Comprehensive
[2020-11-25] MEDS: aspirin 81 mg Chew Tablet 324 MG PO (11:22)
[2020-11-25 11:43] LABS: Basophils # 0.1 10^3/uL (0.0-0.1); Basophils % 0.7 %; Eosinophils # 0.4 10^3/uL (0.0-0.8); Eosinophils % 3.9 %; Hematocrit 37.7 % (42.0-52.0); Hemoglobin 12.5 g/dL (11.7-16.6); Lymphocytes # 1.4 10^3/uL (0.8-4.8); Lymphocytes % 15.5 %; Mean Corpuscular HGB Conc 33.2 g/dL (30.0-36.0); Mean Corpuscular Hemoglobin 30.6 pg (28.0-34.0); Mean Corpuscular Volume 92.4 fL (80-94); Mean Platelet Volume 10.3 fL (7.4-10.4); Monocytes # 0.5 10^3/uL (0.2-0.9); Monocytes % 5.4 %; Neutrophils # 6.76 10^3/uL (1.8-7.7); Neutrophils % 74.1 %; Nucleated Red Blood Cells % 0 %; Platelet Count 270 10^3/cmm (130-400); Red Blood Count 4.08 10^6/uL (4.1-5.3); Red Cell Distribution Width 13.6 % (12.1-15.1); White Blood Count 9.1 10^3/uL (4.0-10.0)
[2020-11-25 11:56] LABS: INR 1.09 (0.8-1.2); Partial Thromboplastin Time 27.9 SECONDS (23.9-36.7)
[2020-11-25 12:00] VITALS: BP 151/92; PULSE 84; RESP 12; O2SAT 96
[2020-11-25 12:02] LABS: Troponin(5th) Baseline 13 ng/L (0-15)
[2020-11-25 12:09] LABS: Alanine Aminotransferase 21 U/L (0-41); Albumin Level 4.1 g/dL (3.5-5.2); Alkaline Phosphatase 59 IU/L (40-130); Anion Gap 13.1 (5-19); Aspartate Amino Transferase 18 U/L (0-40); Blood Urea Nitrogen 24 mg/dL (8-23); Carbon Dioxide 22 mmol/L (22-29); Chloride 105 mmol/L (98-107); Globulin 2.7 g/dL (1.3-4.6); Glomerular Filtration Rate 86.1 mL/min (90-130); Glucose 120 mg/dL (65-115); NT Pro B Type Natriuretic Pept 273 pg/mL (0-125); Osmolality Calculated 287 mOsm/kg (285-295); Potassium 4.1 mmol/L (3.5-5.1); Sodium 136 mmol/L (136-145); Total Bilirubin 0.4 mg/dL (0.15-1.2); Total Protein 6.8 g/dL (6.6-8.7)
[2020-11-25] MEDS: ondansetron 2 mg/ML SDV 2 mL 4 MG IVP (12:29)
[2020-11-25] MEDS: lidocaine 2% viscous 15 ML, aluminum-mag hydrox-simethicon 30 ML, sucralfate oral liq 1 GM PO (12:30)
[2020-11-25 14:12] VITALS: BP 147/95; PULSE 85; RESP 16; O2SAT 98
[2020-11-25 14:22] LABS: Troponin 5 2HR 11.76 ng/L (0-15)
[2020-11-25 14:23] LABS: Troponin 5 2HR Delta -1.24 ABS# (0-10)
[2020-11-25 14:48] VITALS: BP 155/90; PULSE 82; RESP 16; O2SAT 98
== END 2020-11-25 15:00 | disposition home or self-care (01) ==
PROVIDERS: Emergency Provider Emergency Medicine; PCP Family Medicine
DX: K21.00 Gastro-esophageal reflux disease with esophagitis, without bleeding (principal); Z79.82 Long term (current) use of aspirin; E11.9 Type 2 diabetes mellitus without complications; E78.5 Hyperlipidemia, unspecified; I10 Essential (primary) hypertension
CPT/HCPCS: 71045; 80053; 83880; 84484; 85025; 85610; 85730; 93005; 96374; 99284; J2405

== ENCOUNTER 2020-12-22 11:29 | Emergency (ER) | payer OTHER, SELFPAY ==
[2020-12-22] VITALS (9 sets, daily range): BP systolic 82–137; BP diastolic 53–82; PULSE 78–86; RESP 16–18; TEMP 36.4–36.6; O2SAT 97–100; BMI 29.9
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
[2020-12-22] MEDS: sodium chloride 0.9% 1,000 ML 999 ML IV ×2 (13:25→14:35)
[2020-12-22 13:34] LABS: Basophils # 0.1 10^3/uL (0.0-0.1); Basophils % 0.6 %; Eosinophils # 0.4 10^3/uL (0.0-0.8); Eosinophils % 4.2 %; Hematocrit 39.9 % (42.0-52.0); Hemoglobin 13.3 g/dL (11.7-16.6); Lymphocytes # 1.7 10^3/uL (0.8-4.8); Lymphocytes % 19.3 %; Mean Corpuscular HGB Conc 33.3 g/dL (30.0-36.0); Mean Corpuscular Hemoglobin 30.6 pg (28.0-34.0); Mean Corpuscular Volume 91.7 fL (80-94); Mean Platelet Volume 10.8 fL (7.4-10.4); Monocytes # 0.6 10^3/uL (0.2-0.9); Monocytes % 7.2 %; Neutrophils # 5.93 10^3/uL (1.8-7.7); Neutrophils % 68.1 %; Nucleated Red Blood Cells % 0 %; Platelet Count 275 10^3/cmm (130-400); Red Blood Count 4.35 10^6/uL (4.1-5.3); Red Cell Distribution Width 12.9 % (12.1-15.1); White Blood Count 8.7 10^3/uL (4.0-10.0)
--- NOTE | 2020-12-22 13:38 | PC.PHAR ---
PT VERIFIED MEDS FROM [facility]. PT WAS TAKEN OFF OF LYRICA 150 MG BID AND PROTONIX 40MG DAILY.
[2020-12-22 13:46] LABS: Alanine Aminotransferase 20 U/L (0-41); Albumin Level 4.4 g/dL (3.5-5.2); Alkaline Phosphatase 61 IU/L (40-130); Aspartate Amino Transferase 20 U/L (0-40); Blood Urea Nitrogen 44 mg/dL (8-23); Calcium 9.2 mg/dL (8.5-10.5); Carbon Dioxide 22 mmol/L (22-29); Chloride 103 mmol/L (98-107); Glomerular Filtration Rate 41.3 mL/min (90-130); Glucose 186 mg/dL (65-115); Osmolality Calculated 298 mOsm/kg (285-295); Sodium 136 mmol/L (136-145); Total Bilirubin 0.4 mg/dL (0.15-1.2); Total Protein 7.4 g/dL (6.6-8.7)
[2020-12-22 13:51] LABS: Anion Gap 15.9 (5-19); Potassium 4.9 mmol/L (3.5-5.1)
[2020-12-22 15:58] LABS: Add Urine Microscopic? YES; Bilirubin Urine 1+ (Negative); Blood Urine Neg (Negative); Glucose Urine UA Trace (Normal); Ketones Urine Negative (Negative); Leukocyte Esterase Urine Negative (Negative); Nitrate Urine Negative (Negative); Protein Urine Trace (Negative); Urine Appearance Clear (CLEAR); Urine Color Yellow (Yellow); Urobilinogen Urine Norm (Negative); pH Urine 5 (5-7)
[2020-12-22 16:09] LABS: Add Urine Culture? No; Bacteria Urine TRACE /hpf; Squamous Epithelial Cell Urine 0-4 /hpf (0-5); WBC Urine 0-4 /hpf (0-5)
== END 2020-12-22 16:30 | disposition home or self-care (01) ==
PROVIDERS: Emergency Provider Nurse Practitioner Family; PCP Family Medicine
DX: E86.0 Dehydration (principal); N17.9 Acute kidney failure, unspecified; E11.9 Type 2 diabetes mellitus without complications; E78.5 Hyperlipidemia, unspecified; I10 Essential (primary) hypertension; Z79.4 Long term (current) use of insulin
CPT/HCPCS: 80053; 81001; 85025; 96360; 96361; 99284; J7030

== ENCOUNTER → 2021-01-30 08:49 | Outpatient (BNVA) | payer OTHER, SELFPAY | PROVIDERS: PCP Family Medicine; Visit Provider Anesthesiology Pain Medicine | DX: M51.16 Intervertebral disc disorders with radiculopathy, lumbar region (principal); M51.36 Other intervertebral disc degeneration, lumbar region; M47.816 Spondylosis without myelopathy or radiculopathy, lumbar region; M19.019 Primary osteoarthritis, unspecified shoulder; M62.830 Muscle spasm of back; Z79.891 Long term (current) use of opiate analgesic | CPT/HCPCS: 99215 ==

== ENCOUNTER → 2021-02-08 13:03 | Outpatient (BNVA) | payer OTHER, SELFPAY | PROVIDERS: PCP Family Medicine; Visit Provider Anesthesiology Pain Medicine | DX: Z01.812 Encounter for preprocedural laboratory examination (principal); E11.9 Type 2 diabetes mellitus without complications; M51.16 Intervertebral disc disorders with radiculopathy, lumbar region | CPT/HCPCS: 36416; 64483; 82962; J1100; J3490 ==

== ENCOUNTER 2021-03-02 09:43 | Observation (INO) | payer OTHER, SELFPAY ==
[2021-03-02] VITALS (35 sets, daily range): BP systolic 138–188; BP diastolic 83–113; PULSE 85–91; RESP 15–18; TEMP 36.4–36.7; O2SAT 95–100; BMI 29.5
--- NOTE | 2021-03-02 09:46 | ED_ITS ---
HPI - Neuro Symptoms/Deficit General: Chief Complaint: Neuro Symptoms/Deficit Stated Complaint: side of face droop, slurred speech Time Seen by Provider: 03/02/21 09:44 History of Present Illness: HPI Narrative: Mr Aguilar is a 60-year-old gentleman with history of hypertension, hyperlipidemia, diabetes who presents emergency department due to strokelike symptoms. Onset of symptoms was 4 PM roughly on 03/01. Initially he did not notice anything however his daughter noticed mild speech difficulties. He felt generally unwell and somewhat attributed to this. This morning symptoms are more pronounced, he does have an associated headache as well as right-sided mild facial droop and continued slurred speech. Mild associated worse numbness in the right hand, does have a history of neuropathy gait is mildly unsteady. Intensity is mild to moderate. Overall the course has been worsening. Denies similar episodes in the past. 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 No acute distress. Eyes - PERRL, no conjunctival injection ENMT - Atraumatic external nose and ears. Moist mucous membranes NECK - supple. trachea midline CARDIOVASCULAR - regular rate and rhythm. RESPIRATORY -clear to auscultation bilaterally. ABDOMEN/GI - Nontender/Nondistended. MSK - Extremities without obvious deformity or tenderness to palpation SKIN - Warm, Dry NEURO - alert and appropriately oriented. Cranial nerve II through XII exam notable for right sided facial droop which has minimal right forehead involvement, does involve ocular distribution with mild difficulty closing eye though eyelids do completely about. Somewhat unsteady gait. Subjective sensory changes. PSYCH - Appropriate mood and affect Course ED course: - Patient was seen and evaluated by me at bedside - Patient placed on cardiac monitors, IV access obtained - Initial evaluation notable for neurologic exam as noted above, no acute distress. Unfortunately patient outside window for TPA or other significant intervention - Labs notable for no acute hematologic or metabolic abnormality to explain patient's symptoms - Imaging notable for CT head negative for acute intracranial hemorrhage. CTA without LVO, no evidence of recent infarct though see full read for somewhat abnormal findings. The patient's neurologic exam regarding facial droop does order possibility of Chao's palsy however additional reported symptoms including slurred speech or atypical of Chao's palsy. Therefore, MRI warranted, MRI notable for acute to subacute stroke.. - Upon serial reexamination after treatment the patient was similar - Based on patient history, evaluation, labs, and imaging as interpreted the most likely cause of the patient's condition is ischemic stroke - The results of ED evaluation were discussed with the patient including plan for admission due to requirement for level of care not available if discharged to prevent further strokes as patient requires further medication optimization and further risk factor identification. -Hospitalist service contacted and agreed admit the patient. - Patient was admitted without further deterioration or significant events. Vital Signs: Vital signs: Vital Signs Temperature 98.2 F 03/03/21 13:25 Pulse Rate 84 03/03/21 13:25 Respiratory Rate 17 03/03/21 13:25 Blood Pressure 161/82 03/03/21 13:25 Pulse Oximetry 95 03/03/21 13:25 MDM - Neuro Symptoms/Deficit Medical Records: Attestation: I reviewed the patient's medical records. Lab Data: Attestation: I reviewed the patient's lab results. Labs: Lab Results 03/02/21 03/02/21 03/02/21 10:05 10:05 10:05 WBC 7.6 10^3/uL 10^3/ uL (4.0-10.0) RBC 4.64 10^6/uL 10^6 /uL (4.1-5.3) Hgb 14.4 g/dL g/dL (11.7-16.6) Hct 43.5 % % (42.0-52.0) MCV 93.8 fl fl (80-94) MCH 31.0 pg pg (28.0-34.0) MCHC 33.1 g/dL g/dL (30.0-36.0) RDW 13.0 % % (12.1-15.1) Plt Count 227 10^3/cmm 10^3 /cmm (130-400) MPV 11.0 fL H fL (7.4-10.4) Neut % (Auto) 71.6 % % Lymph % (Auto) 17.1 % % Collier % (Auto) 6.4 % % Eos % (Auto) 3.7 % % Baso % (Auto) 0.8 % % Neut # (Auto) 5.47 10^3/uL 10^3 /uL (1.8-7.7) Lymph # (Auto) 1.3 10^3/uL 10^3/ uL (0.8-4.8) Collier # (Auto) 0.5 10^3/uL 10^3/ uL (0.2-0.9) Eos # (Auto) 0.3 10^3/uL 10^3/ uL (0.0-0.8) Baso # (Auto) 0.1 10^3/uL 10^3/ uL (0.0-0.1) Nucleated RBC % (a uto) 0 % % Nucleated RBCs # 0.0 /100WBC /100W BC Sodium 133 mmol/L L mmol /L (136-145) Potassium 4.3 mmol/L mmol/L (3.5-5.1) Chloride 98 mmol/L mmol/L (98-107) Carbon Dioxide 26 mmol/L mmol/L (22-29) Anion Gap 13.3 (5-19) BUN 20 mg/dL mg/dL (8-23) Creatinine 0.9 mg/dL mg/dL (0.7-1.2) GFR Calculation 86.1 mL/min L mL/ min (90-130) Glucose 275 mg/dL H mg/dL (65-115) POC Glucose Estimat Average Gl ucose 229 Hemoglobin A1c 9.6 % H % (4.0-6.0) Calculated Osmolal ity 288 mOsm/kg mOsm/ kg (285-295) Uric Acid Calcium 9.4 mg/dL mg/dL (8.5-10.5) Total Bilirubin 0.6 mg/dL mg/dL (0.15-1.2) AST 15 U/L U/L (0-40) ALT 17 U/L U/L (0-41) Alkaline Phosphata se 71 IU/L IU/L (40-130) Total Protein 8.0 g/dL g/dL (6.6-8.7) Albumin 4.3 g/dL g/dL (3.5-5.2) Globulin 3.7 g/dL g/dL (1.3-4.6) Triglycerides Cholesterol LDL Cholesterol, C alc HDL Cholesterol LDL/HDL Ratio Cholesterol/HDL Ra tennille TSH 0.89 uIU/mL uIU/m L (0.27-4.20) 03/02/21 03/02/21 10:05 10:19 WBC RBC Hgb Hct MCV MCH MCHC RDW Plt Count MPV Neut % (Auto) Lymph % (Auto) Collier % (Auto) Eos % (Auto) Baso % (Auto) Neut # (Auto) Lymph # (Auto) Collier # (Auto) Eos # (Auto) Baso # (Auto) Nucleated RBC % (a uto) Nucleated RBCs # Sodium Potassium Chloride Carbon Dioxide Anion Gap BUN Creatinine GFR Calculation Glucose POC Glucose 268 mg/dL H mg/dL (70-110) Estimat Average Gl ucose Hemoglobin A1c Calculated Osmolal ity Uric Acid 6.2 mg/dL mg/dL (3.4-7.0) Calcium Total Bilirubin AST ALT Alkaline Phosphata se Total Protein Albumin Globulin Triglycerides 232 mg/dL H mg/dL (0-150) Cholesterol 139 mg/dL mg/dL (0-200) LDL Cholesterol, C alc 66 mg/dL mg/dL (50-129) HDL Cholesterol 27 mg/dL L mg/dL (60-100) LDL/HDL Ratio 2.44 RATIO RATIO (0.00-3.22) Cholesterol/HDL Ra tennille 5.15 mg/dL H mg/d L (1.0-5.00) TSH Discharge Plan Discharge Patient Disposition: Placed in Observation Admit Provider: Ryan Castillo Clinical Impression: Stroke Discharge Diet: Cardiac and Diabetic Discharge Activity: Increase activity as tolerated, As per PT/OT instructions and Return to work/school after cleared by PCP/Specialist Coding Level of Care Code ED Coordinator 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
--- NOTE | 2021-03-02 10:00 | XR_ITS ---
WS: [id number] Portable AP upright chest, 03/02/2021 Clinical Data: stroke like symptoms Comparison: Portable chest, 11/25/2020. Findings: No nodules, masses or effusions are seen. The heart is normal. The pulmonary vascularity is not increased. No pneumonia or pneumothorax is seen. XR/XR chest 1V portable 30300 Impression: Negative chest.
--- NOTE | 2021-03-02 10:00 | CT_ITS ---
WS: [id number] CT HEAD TECHNIQUE: Noncontrast CT of the head obtained from the skullbase to the vertex. CLINICAL INFORMATION: facial droop, slurred speech COMPARISON: CT 1 28,018 DLP: 1054.[address] scans at [facility] use at least one of these dose optimization techniques: automated e xposure control; mA and/or kV adjustment per patient size (includes targeted exams where dose is matc hed to clinical indication); or iterative reconstruction. FINDINGS: No evidence of intracranial hemorrhage or mass effect. Ventricular system and basal cisterns are miller nt. Mild small vessel changes with mild parenchymal volume loss. Low-attenuation change in the left f rontal periventricular white matter is new from previous but has a chronic appearance. No extra-axial fluid collections. No evidence of mass or mass effect. Normal smith-white differentiation. Paranasal sinuses and mastoid air cells are well aerated. .Normal visualized soft tissues. CT/CT head wo con* [id number] IMPRESSION: 1. No evidence of intracranial hemorrhage or mass effect. 2. Mild small vessel changes with mild parenchymal volume loss. 3. 1.2 cm focus low-attenuation change in the left frontal periventricular whi te matter is new from 2018 but has a chronic appearance. 4. No acute intracranial findings.
--- NOTE | 2021-03-02 10:00 | CT_ITS ---
WS: [id number] CTA HEAD AND NECK TECHNIQUE: Contrast enhanced CTA of the head and neck with coronal and sagittal reformatted images an d maximum intensity projection (MIP) images. NASCET criteria utilized. CLINICAL INFORMATION: facial droop, slurred speech COMPARISON: None. DLP: 2746.[address] scans at [facility] use at least one of these dose optimization techniques: automated e xposure control; mA and/or kV adjustment per patient size (includes targeted exams where dose is matc hed to clinical indication); or iterative reconstruction. FINDINGS: RIGHT: Right common carotid artery is patent. No significant right ICA stenosis.ICA is patent to the skull base. LEFT: Left common carotid artery is patent. No significant left ICA stenosis. Left ICA is patent to t he skull base. INTRACRANIAL CTA: Both vertebral arteries are patent to the skull base. Distal vertebral arteries are patent. Basilar artery is patent. Normal vascularity to the [employer] territo ry bilaterally. Both ICAs are patent at the skull base. Normal vascularity to the VIJAYA and MCA territory bilaterally. No evidence of flow-limiting stenosis or aneurysm. Patent anterior communicating artery. Lung apices are well aerated. CT/CT angio headneck* [id number] IMPRESSION: 1. No significant ICA stenosis bilaterally. 2. Codominant and patent vertebral arteries. 3. Normal intracranial CTA. No evidence of flow-limiting stenosis or aneurysm.
[2021-03-02 10:18] LABS: Basophils # 0.1 10^3/uL (0.0-0.1); Basophils % 0.8 %; Eosinophils # 0.3 10^3/uL (0.0-0.8); Eosinophils % 3.7 %; Hematocrit 43.5 % (42.0-52.0); Hemoglobin 14.4 g/dL (11.7-16.6); Lymphocytes # 1.3 10^3/uL (0.8-4.8); Lymphocytes % 17.1 %; Mean Corpuscular HGB Conc 33.1 g/dL (30.0-36.0); Mean Corpuscular Volume 93.8 fl (80-94); Monocytes # 0.5 10^3/uL (0.2-0.9); Monocytes % 6.4 %; Neutrophils # 5.47 10^3/uL (1.8-7.7); Neutrophils % 71.6 %; Nucleated Red Blood Cells % 0 %; Platelet Count 227 10^3/cmm (130-400); Red Blood Count 4.64 10^6/uL (4.1-5.3); White Blood Count 7.6 10^3/uL (4.0-10.0)
[2021-03-02 10:23] LABS: Glucose Point of Care 268 mg/dL (70-110)
[2021-03-02 10:45] LABS: Alanine Aminotransferase 17 U/L (0-41); Albumin Level 4.3 g/dL (3.5-5.2); Alkaline Phosphatase 71 IU/L (40-130); Anion Gap 13.3 (5-19); Aspartate Amino Transferase 15 U/L (0-40); Blood Urea Nitrogen 20 mg/dL (8-23); Calcium 9.4 mg/dL (8.5-10.5); Carbon Dioxide 26 mmol/L (22-29); Chloride 98 mmol/L (98-107); Creatinine Clr Calc Pharmacy 97.1694; Globulin 3.7 g/dL (1.3-4.6); Glomerular Filtration Rate 86.1 mL/min (90-130); Glucose 275 mg/dL (65-115); Osmolality Calculated 288 mOsm/kg (285-295); Potassium 4.3 mmol/L (3.5-5.1); Sodium 133 mmol/L (136-145); Thyroid Stimulating Hormone 0.89 uIU/mL (0.27-4.20); Total Bilirubin 0.6 mg/dL (0.15-1.2)
[2021-03-02] MEDS: iohexol 350 mg/mL 100 mL Btl IV (11:47)
--- NOTE | 2021-03-02 12:19 | MR_ITS ---
WS: [id number] MRI HEAD WITH CONTRAST TECHNIQUE: Sagittal T1, T2 axial, T2 axial FLAIR, axial susceptibility weighted imaging, axial diffus ion weighted images, and coronal T2 images were obtained. Pre and post-T1 axial and post T1 coronal i mages. ADC and FSPGR images. CLINICAL INFORMATION: stroke like symptoms FINDINGS: Wedge-shaped focus of restricted diffusion in the left posterior bro radiata measuring 12 mm consi stent with acute ischemia. Mild associated edema. No mass effect or midline shift. Mild small vessel changes. Moderate parenchymal volume loss. No other foci of restricted diffusion. Normal posterior fossa. Normal vascular flow voids at the skull base. No extra-axial fluid collection s. Mild mucosal thickening paranasal sinuses. Mastoid air cells well aerated. No hemosiderin on susce ptibly weighted images. Normal optic chiasm and pituitary infundibulum. Normal cavernous sinuses and Meckel's cave. No abnorm al gadolinium enhancement. Normal dural venous sinuses. MR/MR head wo/w con [id number] IMPRESSION: 1. 12 mm focus of restricted diffusion consistent with acute ischemia in the l eft posterior bro radiata. Mild associated edema. No other foci of acute isc hemia. 2. No mass effect or midline shift. 3. Mild small vessel changes with moderate parenchymal volume loss. 4. No other significant findings. Notified James Alford MD at 03/02/2021 2:12 PM.
--- NOTE | 2021-03-02 12:24 | PC.PHAR ---
PT STATES HE TAKES CARE OF HIS OWN MEDICATIONS-PT STATES HE TAKES ALL THE MEDICATIONS ENTERED-[facility]
[2021-03-02] MEDS: gadobenate dimeglumine 20 mL vial IV (13:40)
--- NOTE | 2021-03-02 18:05 | P.HP_ITS ---
Providers/Chief Complaint Admitting Physician: Ryan Castillo MD Primary Care Provider: Pam Diaz MD Chief Complaint: side of face droop, slurred speech History of Present Illness Wayne Aguilar is a 60 year old male who carry history of hypertension diabetes dyslipidemia diabetic neuropathy presented today with chief complaint of right- sided weakness and slurred speech. Patient is stating that his symptoms started at 4 PM yesterday when he noticed right-sided weakness. He attributed symptoms to generalized body weakness and did not seek medical attention, next day when he woke up family noticed that his speech was slurred and there was right-sided facial droop and his right-sided weakness was getting worse. In the ER he had work-up done for stroke MRI showed acute stroke, by the time I saw him he was on medical floor with normal hemodynamics, no slurring of speech, noticed right-sided facial droop mild weakness of right side of his body, he was awake and alert, NIH 5 He was complaining of right ankle pain. Requested uric acid. Started dual antiplatelet therapy & requested echo. CTA head and neck unremarkable , Sinus rhythm TSH normal Review of Systems Const: Reports: body aches; Denies: fever(s) Eyes: Denies: change in vision ENMT: Denies: throat pain Card: Denies: chest pain Resp: Denies: dyspnea GI: Denies: abdominal pain : Denies: flank pain Musc: Reports: joint pain Skin/Breast: Denies: pruritus Neuro: Reports: difficulty walking Psych: Denies: anxiety Endo: Denies: polyuria Tono/Lymph: Denies: easy bruising All/Imm: Denies: urticaria Medications/Allergies Home Medications Medication Instructions Recorded Confirmed Last Taken Type aspirin [Aspirin Low Dose] 81 mg PO QAM 12/02/19 03/02/21 03/02/21 09:00 History cholecalciferol (vitamin D3) 25 mcg PO QAM 12/02/19 03/02/21 03/02/21 History lisinopril 2.5 mg PO QAM 12/02/19 03/02/21 03/02/21 History magnesium oxide 400 mg PO DAILY 12/02/19 03/02/21 12/22/20 History pantoprazole 40 mg PO BID 12/02/19 03/02/21 03/02/21 History polyethylene glycol 3350 [Miralax] 17 g PO DAILY PRN 12/02/19 03/02/21 12/02/19 History semaglutide 0.5 mg SUBCUT Q7D 12/02/19 03/02/21 02/26/21 History Diabetic Shoes with 3 sets of #1 ea 05/10/20 03/02/21 Unknown Rx inserts Custom Molded Accomodative #1 ea 09/22/20 03/02/21 Unknown Rx Orthotics nitroglycerin 0.4 mg sublingual 0.4 mg SUBLINGUAL Q5M PRN #25 tab 10/21/20 03/02/21 Unknown Rx tablet metoprolol succinate 50 mg PO QAM 11/25/20 03/02/21 03/02/21 History rosuvastatin [Crestor] 5 mg PO QAM 11/25/20 03/02/21 03/02/21 History hydrochlorothiazide 12.5 mg PO QAM 12/22/20 03/02/21 03/02/21 09:00 History pregabalin 150 mg capsule 150 mg PO BID 30 Days #60 cap 01/30/21 03/02/21 03/02/21 Rx tramadol 50 mg tablet 50 mg PO BID PRN 30 Days #60 tab 01/30/21 03/02/21 Unknown Rx amlodipine 5 mg PO QAM 03/02/21 03/02/21 03/02/21 History glipizide 5 mg PO BID 03/02/21 03/02/21 03/02/21 History insulin glargine [Lantus Solostar 15 unit SUBCUT BEDTIME 03/02/21 03/02/21 03/01/21 History U-100 Insulin] Allergies Allergy/AdvReac Type Severity Reaction Status Date / Time latex Allergy ALGY-Haileiste Verified 03/02/21 12:26 r PFSH Acute PFSH: Medical History (Updated 03/02/21 @ 18:29 by Ryan Castillo MD) Degenerative lumbar disc Diabetes mellitus 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 Hyperlipidemia 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 Pain management contract signed Surgical History Hx of appendectomy Hx of cholecystectomy Hx of foot surgery Family History Denies family history of Anesthesia complication Social History Smoking and tobacco status: never smoked Alcohol intake: never History of recent travel: No Vitals/I&O/Wt Last Vital Signs Temp 98.0 F 03/02/21 16:23 Pulse 86 03/02/21 16:23 Resp 18 03/02/21 16:23 BP 160/83 03/02/21 16:23 Pulse Ox 98 03/02/21 16:23 Weight last 48 hrs Weight 90.718 kg Physical Exam Narrative: EXAM NARRATIVE: Patient was laying comfortably in his bed Saturating well on room air Right-sided facial droop Right-sided weakness 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 Tender right ankle otherwise no redness mild swelling noticed S1, S2 Saturating well on room air no audible stridor or wheezing Abdomen soft Appropriate mood and affect Data : 03/02/21 10:05 03/02/21 10:05 A&P Assessment and plan (1) Stroke: Status: Acute (2) Lumbar disc disease with radiculopathy: Status: Acute (3) Hypertension: Status: Acute Qualifiers: Hypertension type: essential hypertension Qualified Code(s): I10 - Essential (primary) hypertension (4) Hyperlipidemia: Status: Acute Qualifiers: Hyperlipidemia type: mixed hyperlipidemia Qualified Code(s): E78.2 - Mixed hyperlipidemia (5) Diabetes mellitus: Status: Acute Qualifiers: Diabetes mellitus type: type 2 Diabetes mellitus manager intermediate insulin use: with correction use Diabetes mellitus complication status: with other specified complication Qualified Code(s): E11.69 - Type 2 diabetes mellitus with other specified complication; Z79.4 - manager intermediate (current) use of insulin Additional A&P Information Acute stroke Left bro radiata CTA head and neck unremarkable We will request echo we will place him on event monitor at the time of discharge Monitor rhythm on telemetry Dual antiplatelet therapy for 21 days high-dose statins Check A1c level, TSH, Permissive hypertension for 24 hours For cerebral edema we will start Decadron NIH 5 for mild right-sided weakness, facial droop Full code Speech evaluation, physical therapy evaluation Diabetic neuropathy, right ankle pain, check uric acid, mild swelling without active redness, no sign of cellulitis, will give opioids for now Has Charcot foot, will request right ankle x-ray to rule out fracture Consistent carb diet Sliding scale with insulin Attestations Medical Necessity Statement*: Anticipating discharge within 48 hours Time Spent in Patient Care: Greater than 35 minutes Coding Level of Care Code Acute Certified Emergency Vehicle Technician for [facility] Fwd Diagnoses Stroke I63.9 Lumbar disc disease with radiculopathy M51.16 Hypertension I10 Hypertension type: essential hypertension Hyperlipidemia E78.2 Hyperlipidemia type: mixed hyperlipidemia Diabetes mellitus E11.69; Z79.4 Diabetes mellitus type: type 2 Diabetes mellitus correction insulin use: with correction use Diabetes mellitus complication status: with other specified complication
[2021-03-02] MEDS: TRAMadol 50 mg Tablet PO (18:16)
[2021-03-02] MEDS: ketorolac 30 mg/mL INJ 15 MG IVP (18:19)
--- NOTE | 2021-03-02 18:34 | XR_ITS ---
WS: [id number] Right ankle, AP and lateral views, 03/02/2021 Clinical Data: ankle pain Comparison: None. Findings: No fractures or dislocations are seen. The ankle mortise is normal. The talus and calcaneus are unrem arkable. No soft tissue swelling over the medial or lateral malleolus is seen. There is an Achilles spur and a plantar spur. XR/XR ankle RT 2V [id number] Impression: Negative right ankle.
--- NOTE | 2021-03-02 18:56 | PC.NURSE ---
Report to Natacha CORTES at this time.
[2021-03-02 20:07] LABS: Chol HDL Ratio 5.15 mg/dL (1.0-5.00); Cholesterol 139 mg/dL (0-200); HDL Cholesterol 27 mg/dL (60-100); LDL Cholesterol Calculated 66 mg/dL (50-129); LDL HDL Ratio 2.44 RATIO (0.00-3.22); Triglycerides 232 mg/dL (0-150); Uric Acid 6.2 mg/dL (3.4-7.0)
[2021-03-02] MEDS: acetaminophen 500 mg Tablet PO (20:16)
[2021-03-02] MEDS: insulin glargine 100 units/1 mL 15 UNIT SUBCUT (20:17)
[2021-03-02] MEDS: atorvastatin 40 mg Tablet 80 MG PO (20:18)
[2021-03-02] MEDS: dexamethasone 4 mg Tablet PO (20:18)
[2021-03-02 20:55] LABS: Glucose Point of Care 248 mg/dL (70-110)
[2021-03-02 21:33] LABS: Estmated Average Glucose 229; Hemoglobin A1C 9.6 % (4.0-6.0)
[2021-03-03] VITALS (8 sets, daily range): BP systolic 161–187; BP diastolic 82–103; PULSE 79–84; RESP 17–18; TEMP 36.4–36.8; O2SAT 95–98
[2021-03-03] MEDS: morphine 4 mg/mL SDV 1 mL 2 MG IVP (03:41)
[2021-03-03] MEDS: amlodipine 5 mg Tablet PO (05:27)
[2021-03-03] MEDS: metoprolol succinate ER (24 HR) 50 mg Tablet PO (05:27)
[2021-03-03] MEDS: lisinopril 2.5 mg Tablet PO (05:28)
[2021-03-03] MEDS: aspirin 81 mg EC Tablet PO ×2 (05:28→09:58)
[2021-03-03] MEDS: acetaminophen 500 mg Tablet PO (05:30)
[2021-03-03 05:40] LABS: Basophils % 0.6 %; Eosinophils # 0.2 10^3/uL (0.0-0.8); Eosinophils % 2.6 %; Hematocrit 38.1 % (42.0-52.0); Hemoglobin 12.9 g/dL (11.7-16.6); Lymphocytes % 14.9 %; Mean Corpuscular HGB Conc 33.9 g/dL (30.0-36.0); Mean Corpuscular Hemoglobin 31.2 pg (28.0-34.0); Monocytes # 0.4 10^3/uL (0.2-0.9); Monocytes % 6.5 %; Neutrophils # 4.92 10^3/uL (1.8-7.7); Neutrophils % 74.9 %; Nucleated Red Blood Cells % 0 %; Platelet Count 222 10^3/cmm (130-400); Red Blood Count 4.14 10^6/uL (4.1-5.3); Red Cell Distribution Width 12.5 % (12.1-15.1); White Blood Count 6.6 10^3/uL (4.0-10.0)
[2021-03-03 05:54] LABS: Anion Gap 13.5 (5-19); Blood Urea Nitrogen 26 mg/dL (8-23); Calcium 8.9 mg/dL (8.5-10.5); Carbon Dioxide 24 mmol/L (22-29); Chloride 103 mmol/L (98-107); Glomerular Filtration Rate 61.8 mL/min (90-130); Glucose 278 mg/dL (65-115); Osmolality Calculated 297 mOsm/kg (285-295); Potassium 4.5 mmol/L (3.5-5.1); Sodium 136 mmol/L (136-145)
[2021-03-03 06:29] LABS: Glucose Point of Care 279 mg/dL (70-110)
[2021-03-03] MEDS: lisinopril 10 mg Tablet PO (08:29)
--- NOTE | 2021-03-03 09:02 | PM.DCS ---
Discharge Providers Date of Admission: 03/02/21 18:02 Date of Discharge: March 03, 2021 Attending Provider at Admission: Ryan Castillo MD Attending Provider at Discharge: Ryan Castillo MD Primary Care Provider: Pam Diaz MD Diagnoses at Discharge Discharge Diagnosis (1) Stroke: Status: Acute (2) Lumbar disc disease with radiculopathy: Status: Acute (3) Hypertension: Status: Acute Qualifiers: Hypertension type: essential hypertension Qualified Code(s): I10 - Essential (primary) hypertension (4) Hyperlipidemia: Status: Acute Qualifiers: Hyperlipidemia type: mixed hyperlipidemia Qualified Code(s): E78.2 - Mixed hyperlipidemia (5) Diabetes mellitus: Status: Acute Qualifiers: Diabetes mellitus complication status: with other specified complication Diabetes mellitus long term acute care registered nurse insulin use: with long term acute care registered nurse use Diabetes mellitus type: type 2 Qualified Code(s): E11.69 - Type 2 diabetes mellitus with other specified complication; Z79.4 - prison (current) use of insulin Reason for Visit Reason for Visit: side of face droop, slurred speech Hospital Course Hospital Course Wayne Aguilar is a 60 year old male who carry history of hypertension diabetes dyslipidemia diabetic neuropathy presented today with chief complaint of right-sided weakness and slurred speech. Patient developed symptoms around 4 PM, 24 hrs before arrival in the ER with right-sided weakness. He attributed symptoms to generalized body weakness and did not seek medical attention, next day when he woke up family noticed that his speech was slurred and there was right-sided facial droop and his right-sided weakness was getting worse. In the ER he had work-up done for stroke MRI showed acute stroke, normal hemodynamics, no slurring of speech, noticed right-sided facial droop mild weakness of right side of his body, he was awake and alert, NIH 5, not a TPA candidate. He was complaining of right ankle pain. Normal UA and negative ankle xray for acute fractures. Started dual antiplatelet therapy & requested echo., CTA head and neck unremarkable, Sinus rhythm, TSH normal On 03/03 he will go home with dual antiplatelet therapy 80 mg of atorvastatin. Event monitor for 21 days with f/u with Dr Flores. He remained in Sinus rhythm on telemetry. Gave him script for Outpatient speech and Physical theraphy. Risk factor management with better glucose and BP control. I have increased the dose of lisinopril. I have given him prescription for Decadron for 4 days because of cerebral edema related to the acute ischemia Physical Exam Narrative: EXAM NARRATIVE: Patient was sitting comfortably in his bed He was able to walk and go to the bathroom Saturating well on room air NAH 2 for right-sided facial droop and mild weakness of right arm he is able to balance himself no risk of falls EOMI, PERRLA No cerebellar signs Abdomen soft S1, S2 sinus rhythm no murmur appreciated No carotid bruit No audible stridor or wheezing Saturating well on room air Discharge Data Data Completed and Pending: Completed Studies During Hospitalization Category Date Time Status CT angio headneck * [id number]/[id number] Urge nt Cat Scan 03/02/21 10:[address] head wo con* 7 0450 Urgent Cat Scan 03/02/21 10:00 Completed XR ankle RT 2V 73 600 Routine Exams 03/02/21 18:34 Completed XR chest 1V jaswinder ble [id number] Urgent Exams 03/02/21 10:00 Completed MR head wo/w con [id number] Stat MRI 03/02/21 12:19 Completed Pending at discharge Category Date Time Status CV. echo complete * [id number] Routine Ultrasound 03/03/21 18:03 Ordered Labs from last 24 hours 03/03/21 03/03/21 03/03/21 06:17 05:22 05:22 WBC 6.6 RBC 4.14 Hgb 12.9 Hct 38.1 L MCV 92.0 MCH 31.2 MCHC 33.9 RDW 12.5 Plt Count 222 MPV 11.0 H Neut % (Auto) 74.9 Lymph % (Auto) 14.9 Wayne % (Auto) 6.5 Eos % (Auto) 2.6 Baso % (Auto) 0.6 Neut # (Auto) 4.92 Lymph # (Auto) 1.0 Wayne # (Auto) 0.4 Eos # (Auto) 0.2 Baso # (Auto) 0.0 Nucleated RBC % (a uto) 0 Nucleated RBCs # 0.0 Sodium 136 Potassium 4.5 Chloride 103 Carbon Dioxide 24 Anion Gap 13.5 BUN 26 H Creatinine 1.2 GFR Calculation 61.8 L Glucose 278 H POC Glucose 279 H Estimat Average Gl ucose Hemoglobin A1c Calculated Osmolal ity 297 H Uric Acid Calcium 8.9 Total Bilirubin AST ALT Alkaline Phosphata se Total Protein Albumin Globulin Triglycerides Cholesterol LDL Cholesterol, C alc HDL Cholesterol LDL/HDL Ratio Cholesterol/HDL Ra [place]ennille TSH 03/02/21 03/02/21 03/02/21 20:52 10:19 10:05 WBC RBC Hgb Hct MCV MCH MCHC RDW Plt Count MPV Neut % (Auto) Lymph % (Auto) Wayne % (Auto) Eos % (Auto) Baso % (Auto) Neut # (Auto) Lymph # (Auto) Wayne # (Auto) Eos # (Auto) Baso # (Auto) Nucleated RBC % (a uto) Nucleated RBCs # Sodium Potassium Chloride Carbon Dioxide Anion Gap BUN Creatinine GFR Calculation Glucose POC Glucose 248 H 268 H Estimat Average Gl ucose Hemoglobin A1c Calculated Osmolal ity Uric Acid 6.2 Calcium Total Bilirubin AST ALT Alkaline Phosphata se Total Protein Albumin Globulin Triglycerides 232 H Cholesterol 139 LDL Cholesterol, C alc 66 HDL Cholesterol 27 L LDL/HDL Ratio 2.44 Cholesterol/HDL Ra tennille 5.15 H TSH 03/02/21 03/02/21 03/02/21 10:05 10:05 10:05 WBC 7.6 RBC 4.64 Hgb 14.4 Hct 43.5 MCV 93.8 MCH 31.0 MCHC 33.1 RDW 13.0 Plt Count 227 MPV 11.0 H Neut % (Auto) 71.6 Lymph % (Auto) 17.1 Wayne % (Auto) 6.4 Eos % (Auto) 3.7 Baso % (Auto) 0.8 Neut # (Auto) 5.47 Lymph # (Auto) 1.3 Wayne # (Auto) 0.5 Eos # (Auto) 0.3 Baso # (Auto) 0.1 Nucleated RBC % (a uto) 0 Nucleated RBCs # 0.0 Sodium 133 L Potassium 4.3 Chloride 98 Carbon Dioxide 26 Anion Gap 13.3 BUN 20 Creatinine 0.9 GFR Calculation 86.1 L Glucose 275 H POC Glucose Estimat Average Gl ucose 229 Hemoglobin A1c 9.6 H Calculated Osmolal ity 288 Uric Acid Calcium 9.4 Total Bilirubin 0.6 AST 15 ALT 17 Alkaline Phosphata se 71 Total Protein 8.0 Albumin 4.3 Globulin 3.7 Triglycerides Cholesterol LDL Cholesterol, C alc HDL Cholesterol LDL/HDL Ratio Cholesterol/HDL Ra tennille TSH 0.89 Vitals: Last Vital Signs Temp 97.9 F 03/03/21 07:33 Pulse 82 03/03/21 07:33 Resp 18 03/03/21 07:33 BP 185/103 03/03/21 07:33 Pulse Ox 98 03/03/21 07:33 Discharge Plan Discharge Patient Disposition: Home Condition: Stable Prescriptions: New atorvastatin 40 mg Tablet 80 mg PO BEDTIME 30 Days Qty: 30 RF: 3 clopidogrel 75 mg Tablet 75 mg PO DAILY 21 Days Qty: 21 RF: 0 dexamethasone 4 mg Tablet 4 mg PO DAILY 4 Days Qty: 4 RF: 0 lisinopril 10 mg Tablet 10 mg PO QAM 30 Days Qty: 30 RF: 3 (DME) Blood Pressure Kit Kit See Rx Instructions .Route Qty: 1 RF: 0 Continued nitroglycerin 0.4 mg tablet, sublingual 0.4 mg SUBLINGUAL Q5M PRN (Reason: chest pain) Qty: 25 RF: 3 (DME) Diabetic Shoes with 3 sets of inserts See Rx Instructions .ROUTE .MEDSUPPLY Qty: 1 RF: 0 pregabalin 150 mg capsule 150 mg PO BID 30 Days Qty: 60 RF: 1 tramadol 50 mg tablet 50 mg PO BID PRN (Reason: pain) 30 Days Qty: 60 RF: 1 (DME) Custom Molded Accomodative Orthotics See Rx Instructions .Route .MEDSUPPLY Qty: 1 RF: 0 hydrochlorothiazide 12.5 mg Tablet 12.5 mg PO QAM RF: 0 polyethylene glycol 3350 [Miralax] 17 gram Powder In Packet 17 g PO DAILY PRN (Reason: Constipation) RF: 0 pantoprazole 40 mg tablet,delayed release (DR/EC) 40 mg PO BID RF: 0 semaglutide 0.25 mg or 0.5 mg(2 mg/1.5 mL) Pen Injector 0.5 mg SUBCUT Q7D RF: 0 magnesium oxide 400 mg magnesium Tablet 400 mg PO DAILY RF: 0 cholecalciferol (vitamin D3) 25 mcg (1,000 unit) Tablet 25 mcg PO QAM RF: 0 metoprolol succinate 100 mg Tablet Extended Release 24 Hr 50 mg PO QAM RF: 0 amlodipine 5 mg Tablet 5 mg PO QAM RF: 0 glipizide 5 mg Tablet 5 mg PO BID RF: 0 Lantus Solostar U-100 Insulin 100 unit/mL (3 mL) Insulin Pen 15 unit SUBCUT BEDTIME RF: 0 Aspirin Low Dose 81 mg Tablet,Delayed Release (Dr/Ec) 81 mg PO QAM 30 Days Qty: 30 RF: 3 Discontinued lisinopril 2.5 mg Tablet 2.5 mg PO QAM RF: 0 rosuvastatin [Crestor] 5 mg Tablet 5 mg PO QAM RF: 0 Discharge Orders: Discharge Order (Routine); Ordered 03/03/21 Ordered By: Ryan Castillo Other Ambulatory Orders: [place] cardiac event monitor (Routine) Timeframe: 3 Weeks Facility: [facility] - Location: Cardiac Diagnostic Laboratory Ordered By: Ryan Castillo Physical Therapy Eval and Treat Outpatient (Order) Timeframe: 3 Days Facility: [facility] - Location: Physical Therapy Ordered By: Ryan Castillo Speech Language Pathology Eval and Treat Outpatient (Order) Timeframe: 3 Days Facility: [facility] - Location: Speech Therapy [place] Ordered By: Ryan Castillo Referrals: Pam Diaz MD [Primary Care Provider] - 03/07/21 2:30 pm Margot Teixeira FNP [Nurse Practitioner] - 03/09/21 1:15 pm (This appointment is to discuss the need for the heart monitor. ) Anastasiia Garcia MD [Physician] - 04/12/21 10:30 am Discharge Diet: Cardiac and Diabetic Discharge Activity: Increase activity as tolerated, As per PT/OT instructions and Return to work/school after cleared by PCP/Specialist Patient Instructions: Lisinopril (By mouth) (Prinivil, Zestril), Atorvastatin (By mouth) (Lipitor), Clopidogrel (By mouth) (Plavix), Dexamethasone (By mouth) (DexPak 10 Day TaperPak, DexPak 13 Day..., Stroke (DC), Opioid Safety, Stroke Stoplight Activity Restrictions/Additional Instructions: Please take aspirin Plavix for 21 days and then off in 21 days you will only take aspirin would cholesterol medication atorvastatin 80 mg, please attend physical therapy and speech therapy to regain your strength you can resume your work once cleared by your PCP. Appointment with heart care services with [facility] to discuss heart monitor. Discharge Attestations Time Spent in Discharge Care*: less than 30 min Quality Metrics Clinical Quality Measures During this hospital stay, did patient experience: Stroke Contraindication to Antithrombotic: Antithrombotic prescribed Contraindication to Anticoagulation: Overlap treatment not indicated Contraindication to Statin: Statin prescribed Contraindication to tPA: Treatment not indicated Coding Level of Care Code Acute [facility] note Diagnoses Stroke I63.9 Lumbar disc disease with radiculopathy M51.16 Hypertension I10 Hypertension type: essential hypertension Hyperlipidemia E78.2 Hyperlipidemia type: mixed hyperlipidemia Diabetes mellitus E11.69; Z79.4 Diabetes mellitus complication status: with other specified complication Diabetes mellitus prison insulin use: with long term acute care registered nurse use Diabetes mellitus type: type 2
[2021-03-03] MEDS: pantoprazole DR 40 mg Tablet PO (09:57)
[2021-03-03] MEDS: clopidogrel 75 mg Tablet PO (09:58)
[2021-03-03] MEDS: dexamethasone 4 mg Tablet PO (09:58)
[2021-03-03] MEDS: pregabalin 150 mg Capsule PO (10:42)
--- NOTE | 2021-03-03 13:15 | PC.CHAP ---
Pastoral Care Encounter/Spiritual Assessment Type of Contact [xx] Declined geological e logger visit [] Patient/Family/Request visit [] Outpatient visit [] Follow-up visit [] Physician referral [] Code/Alert [] Routine visit [] Staff referral [] Actively dying [] Patient sleeping [] Family support [] [] Out of room [] Palliative care [] [] Receiving care in room [] Pre-surgical visit [] Trauma [] Long length of stay [] ICU visit [] Other: Relational/Emotional Strength [] Patient feels connected with others/family/visitors/staff [] Distress [] Loneliness/isolation [] Abandonment Spirituality of Patient [] Person of Gloria [] Attends Yazidism of their Gloria [] Believes in Prayer [] Reads Bible or Voodoo materials [] There are Spiritual issues 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 [] Prayer [xx] Active listening [xx] Non-anxious presence [] Spiritual/emotional support [] Crisis/trauma care [] Spiritual counseling [] Bereavement support [] Provided bereavement packet [] Provided Bible/devotional materials [] Provided toy/stuffed animal, coloring book to patient or family member [] Provided Communion [] Anointing/[place] [] Salvation [] Completed spiritual assessment [] Other: Impact on Illness or Injury [] Angry [] Fearful [] Anxious [] Often cries [] Exhaustion [] Unable to work [] Unable to attend evangelical [] Unable to walk/stand [] Unable to read [] Unable to drive [] Unable to eat/drink [] Unable to sleep [] Unable to be with family [] Patient intubated [] Other: Summary Patient is being discharged and feels like he no longer needs a geological e logger to visit him. Time spent with patient 2 minutes
== END 2021-03-03 13:26 | disposition home or self-care (01) ==
LOC: ER 14:41 → MEDSURG 19:00
PROVIDERS: Admitting Provider Internal Medicine; Emergency Provider Emergency Medicine; PCP Family Medicine; Visit Provider Internal Medicine
DX: I63.9 Cerebral infarction, unspecified (principal); I69.351 Hemiplegia and hemiparesis following cerebral infarction affecting right dominant side; I69.992 Facial weakness following unspecified cerebrovascular disease; R47.81 Slurred speech; G93.6 Cerebral edema; R29.705 NIHSS score 5; M25.571 Pain in right ankle and joints of right foot; I10 Essential (primary) hypertension; E78.2 Mixed hyperlipidemia; M51.16 Intervertebral disc disorders with radiculopathy, lumbar region; E11.40 Type 2 diabetes mellitus with diabetic neuropathy, unspecified; Z79.4 Long term (current) use of insulin; Z79.84 Long term (current) use of oral hypoglycemic drugs; Z79.82 Long term (current) use of aspirin
CPT/HCPCS: 36415; 36416; 70450; 70496; 70498; 70553; 71045; 73600; 80048; 80053; 80061; 82962; 83036; 84443; 84550; 85025; 92523; 96372; 96374; 96375; 97161; 99285; A9577; G0378; J1815; J1885; J2270; J8540; Q9967

== ENCOUNTER 2021-03-28 07:16 | Outpatient (RCR) | payer OTHER, SELFPAY | END 2021-04-11 23:59 | disposition home or self-care (01) | LOC: SPS 07:16 | PROVIDERS: PCP Family Medicine; Referring Provider Family Medicine; Visit Provider Family Medicine | DX: I63.9 Cerebral infarction, unspecified (principal) | CPT/HCPCS: 92523; 92610; 97161 ==

== ENCOUNTER → 2021-04-20 08:31 | Outpatient (BNVA) | payer OTHER, SELFPAY | PROVIDERS: PCP Family Medicine; Visit Provider Anesthesiology Pain Medicine | DX: M79.18 Myalgia, other site (principal); M51.36 Other intervertebral disc degeneration, lumbar region; M47.816 Spondylosis without myelopathy or radiculopathy, lumbar region; M51.16 Intervertebral disc disorders with radiculopathy, lumbar region; M25.511 Pain in right shoulder; M79.605 Pain in left leg; M19.019 Primary osteoarthritis, unspecified shoulder; Z79.891 Long term (current) use of opiate analgesic | CPT/HCPCS: 20553; 99214; J1030; J3490 ==

== ENCOUNTER → 2021-09-06 08:56 | Outpatient (BNVA) | payer OTHER, SELFPAY | PROVIDERS: PCP Family Medicine; Visit Provider Anesthesiology Pain Medicine | DX: M51.36 Other intervertebral disc degeneration, lumbar region (principal); M51.16 Intervertebral disc disorders with radiculopathy, lumbar region; M48.062 Spinal stenosis, lumbar region with neurogenic claudication; M47.816 Spondylosis without myelopathy or radiculopathy, lumbar region; M19.019 Primary osteoarthritis, unspecified shoulder; M62.830 Muscle spasm of back; Z79.891 Long term (current) use of opiate analgesic | CPT/HCPCS: 99215 ==

== ENCOUNTER → 2021-09-28 08:09 | Outpatient (BNVA) | payer OTHER, SELFPAY | PROVIDERS: PCP Family Medicine; Visit Provider Anesthesiology Pain Medicine | DX: G89.29 Other chronic pain (principal); M54.16 Radiculopathy, lumbar region; E11.9 Type 2 diabetes mellitus without complications; Z79.891 Long term (current) use of opiate analgesic; Z79.4 Long term (current) use of insulin | CPT/HCPCS: 36416; 62323; 82962; J1040; J3490 ==

== ENCOUNTER 2021-11-14 11:19 | Emergency (ER) | payer OTHER, SELFPAY ==
[2021-11-14 11:31] VITALS: BP 99/64; PULSE 83; RESP 18; TEMP 36.5; O2SAT 99; BMI 31.0
--- NOTE | 2021-11-14 11:46 | CT_ITS ---
WS: [id number] CT HEAD TECHNIQUE: Noncontrast CT of the head obtained from the skullbase to the vertex. CLINICAL INFORMATION: r arm weakness/tingling COMPARISON: MRI 2020 CT 2020 DLP: 1140.[address] scans at [facility] use at least one of these dose optimization techniques: automated e xposure control; mA and/or kV adjustment per patient size (includes targeted exams where dose is matc hed to clinical indication); or iterative reconstruction. FINDINGS: No evidence of intracranial hemorrhage or mass effect. Ventricular system and basal cisterns are miller nt. Moderate small vessel changes with moderate parenchymal volume loss. No extra-axial fluid collect ions. No evidence of mass or mass effect. Chronic infarct LEFT bro radiata. Paranasal sinuses and mastoid air cells are well aerated. .Normal visualized soft tissues. CT/CT head wo con* [id number] IMPRESSION: 1. No evidence of intracranial hemorrhage or mass effect. 2. Moderate small vessel changes with moderate parenchymal volume loss. 3. Chronic infarct LEFT bro radiata unchanged. 4. No acute intracranial findings.
--- NOTE | 2021-11-14 11:46 | ECG_ITS ---
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 Measurements Intervals [place] Rate: 80 P: 35 KS: 178 QRS: -5 QRSD: 109 T: 32 QT: 385 QTc: 444 Interpretive Statements SINUS RHYTHM SEPTAL MYOCARDIAL INFARCTION , OF INDETERMINATE AGE [40+ ms Q WAVE IN V1/V2] Compared to ECG 11/25/2020 10:41:57 Myocardial infarct finding now present Left-axis deviation no longer present Electronically Signed On 11-14-2021 16:53:11 CDT by Tacos Anderson M.D. [id number]
--- NOTE | 2021-11-14 11:46 | XR_ITS ---
WS: [id number] Portable AP upright chest, 11/14/2021 Clinical Data: dyspnea/cough Comparison: None. Findings: No nodules, masses or effusions are seen. The heart is normal. The pulmonary vascularity is not increased. No pneumonia or pneumothorax is seen. XR/XR chest 1V portable [id number] Impression: Negative chest.
[2021-11-14 11:55] LABS: Basophils % 0.7 %; Eosinophils # 0.4 10^3/uL (0.0-0.8); Eosinophils % 7.1 %; Hematocrit 31.2 % (42.0-52.0); Hemoglobin 11.1 g/dL (11.7-16.6); Lymphocytes # 1.3 10^3/uL (0.8-4.8); Lymphocytes % 23.1 %; Mean Corpuscular HGB Conc 35.6 g/dL (30.0-36.0); Mean Corpuscular Hemoglobin 31.6 pg (28.0-34.0); Mean Corpuscular Volume 88.9 fl (80-94); Mean Platelet Volume 11.4 fL (7.4-10.4); Monocytes # 0.4 10^3/uL (0.2-0.9); Monocytes % 7.1 %; Neutrophils # 3.38 10^3/uL (1.8-7.7); Neutrophils % 61.6 %; Nucleated Red Blood Cells % 0 %; Platelet Count 187 10^3/cmm (130-400); Red Blood Count 3.51 10^6/uL (4.1-5.3); Red Cell Distribution Width 12.5 % (12.1-15.1); White Blood Count 5.5 10^3/uL (4.0-10.0)
[2021-11-14 12:19] LABS: Alanine Aminotransferase 24 U/L (0-41); Alkaline Phosphatase 88 IU/L (40-130); Anion Gap 15.1 (5-19); Aspartate Amino Transferase 15 U/L (0-40); Blood Urea Nitrogen 25 mg/dL (8-23); Calcium 9.9 mg/dL (8.5-10.5); Carbon Dioxide 23 mmol/L (22-29); Chloride 101 mmol/L (98-107); Globulin 3.9 g/dL (1.3-4.6); Glomerular Filtration Rate 44.2 mL/min (90-130); Glucose 361 mg/dL (65-115); Magnesium 1.6 mg/dL (1.7-2.3); Osmolality Calculated 299 mOsm/kg (285-295); Potassium 4.1 mmol/L (3.5-5.1); Sodium 135 mmol/L (136-145); Total Bilirubin 0.4 mg/dL (0.15-1.2); Total Protein 7.9 g/dL (6.6-8.7)
--- NOTE | 2021-11-14 12:26 | W.ED.WEAKNES ---
HPI - Weakness General: Chief complaint: Weakness Stated complaint: Chest pains, sweating, numbness in arms Time Seen by Provider: 11/14/21 11:27 Source: patient Mode of arrival: ambulatory Limitations: no limitations History of Present Illness: 61-year-old male presents to the emergency room with complaints of generalized weakness. Is kind of mixed set of complaints complaining of some numbness in his right hand particular along the ulnar ridge just distal to the elbow and into the fourth and fifth fingers. There is also noticed some intermittent loss of right temporal visual field. Reports intermittent chest pain as well. He does not notice anything that seems to exacerbate or relieve these issues. Is been going on for nearly a week now. He has no known history of coronary disease no previous CVA. Chest pain is intermittent and radiates into his right arm at times he gets some shortness of breath so that he has not noticed anything specifically that exacerbates or relieves it. The right arm numbness distal to the elbow seems to be persistent he thought that the last couple of days it was a little bit worse. The visual changes come and go they are not accompanied mainly with difficulty with swallowing or speech. He has not had any balance issues. MD Complaint: generalized weakness Onset (ago): week(s) (1) Duration: intermittent Severity: mild Relieving factors: none Exacerbating factors: none Associated symptoms: Denies chest pain, chills, confusion, melena, decreased appetite, diaphoresis, dysuria, easy bruising, fever(s), headache(s), myalgias, nausea, rash, short of breath, syncope or vomiting Review of Systems Const: Denies: fever(s), chills or diaphoresis ENMT: Denies: throat pain, ear or mastoid pain, nasal discharge or nasal congestion Card: Denies: chest pain or syncope Resp: Denies: dyspnea, productive cough or non-productive cough GI: Denies: abdominal pain, nausea, vomiting, hematemesis or melena : Denies: flank pain, difficulty urinating, dysuria, urinary frequency or urinary urgency Musc: Denies: neck pain or back pain Skin/Breast: Denies: rash or pruritus Neuro: Denies: headache(s) or confusion Tono/Lymph: Denies: easy bruising PFS ED PFSH: Medical History Degenerative lumbar disc Diabetes mellitus 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 Hyperlipidemia 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 Lumbar disc disease with radiculopathy Pain management contract signed Surgical History Hx of appendectomy Hx of cholecystectomy Hx of foot surgery Family History Denies family history of Anesthesia complication Social History Smoking and tobacco status: never smoked Alcohol intake: never Caregiver/support person: Yes Lives independently: Yes History of recent travel: No Physical Exam Const: GENERAL APPEARANCE: cooperative and comfortable ORIENTATION/CONSCIOUSNESS: Yes awake, Yes oriented to person, Yes oriented to place and Yes oriented to time HENMT: COMMON NORMALS: normocephalic, atraumatic and hearing grossly normal bilaterally HEAD & SCALP: normocephalic and atraumatic Resp: COMMON NORMALS: normal respiratory effort, No retractions, No use of accessory muscles and clear to auscultation bilaterally AUSCULTATION: clear to auscultation bilaterally Cardio: COMMON NORMALS: regular rate, regular rhythm and No murmurs present (Cardio) RATE: regular rate RHYTHM: regular rhythm GI: COMMON NORMALS: Soft to palpation and No hepatosplenomegaly present AUSCULTATION: Yes normoactive bowel sounds PALPATION: Yes Soft to palpation, No Tenderness to palpation present (GI), No Guarding due to palpation present (GI) and Yes No hepatosplenomegaly present Extremity: COMMON NORMALS: normal to inspection, capillary refill normal, no clubbing, cyanosis or edema, no calf tenderness and no pedal edema OTHER: Numbness in the distribution of the distal ulnar nerve from the proximal third of the elbow to the fingertips Neuro: SENSORIUM/ORIENTATION: Yes oriented to person, Yes oriented to place and Yes oriented to time Skin: COMMON NORMALS: no rashes or lesions noted GENERAL SKIN EXAM: no rashes or lesions noted Course Vital Signs: Vital signs: Vital Signs Temperature 97.7 F 11/14/21 11:31 Pulse Rate 74 11/14/21 15:20 Respiratory Rate 14 11/14/21 15:20 Blood Pressure 154/99 11/14/21 15:20 Pulse Oximetry 100 11/14/21 15:20 MDM - Weakness Medical Decision Making Symptoms are resolved at this point. He is already on statin and aspirin we will add Plavix. His right arm symptoms are more consistent with a distal ulnar neuropathy. We will get him set up for outpatient MRI as well as Lexiscan sestamibi stress test return if has problems. Medical Records I reviewed the patient's medical records. Lab Data I reviewed the patient's lab results. : 11/14/21 11:50 11/14/21 11:50 Radiology Impressions Chest X-Ray 11/14/21 11:46 Impression: Negative chest. Head CT 11/14/21 11:46 IMPRESSION: 1. No evidence of intracranial hemorrhage or mass effect. 2. Moderate small vessel changes with moderate parenchymal volume loss. 3. Chronic infarct LEFT bro radiata unchanged. 4. No acute intracranial findings. Head/Neck CTA 11/14/21 12:51 IMPRESSION: 1. No significant ICA stenosis bilaterally. 2. Codominant and patent vertebral arteries bilaterally. 3. Unremarkable intracranial CTA. No evidence of flow-limiting stenosis or aneurysm. Laboratory Results WBC 5.5 10^3/uL (4.0-10.0) 11/14/21 11:50 RBC 3.51 10^6/uL (4.1-5.3) L 11/14/21 11:50 Hgb 11.1 g/dL (11.7-16.6) L 11/14/21 11:50 Hct 31.2 % (42.0-52.0) L 11/14/21 11:50 MCV 88.9 fl (80-94) 11/14/21 11:50 MCH 31.6 pg (28.0-34.0) 11/14/21 11:50 MCHC 35.6 g/dL (30.0-36.0) 11/14/21 11:50 RDW 12.5 % (12.1-15.1) 11/14/21 11:50 Plt Count 187 10^3/cmm (130-400) 11/14/21 11:50 MPV 11.4 fL (7.4-10.4) H 11/14/21 11:50 Neut % (Auto) 61.6 % 11/14/21 11:50 Lymph % (Auto) 23.1 % 11/14/21 11:50 [facility] % (Auto) 7.1 % 11/14/21 11:50 Eos % (Auto) 7.1 % 11/14/21 11:50 Baso % (Auto) 0.7 % 11/14/21 11:50 Neut # (Auto) 3.38 10^3/uL (1.8-7.7) 11/14/21 11:50 Lymph # (Auto) 1.3 10^3/uL (0.8-4.8) 11/14/21 11:50 [facility] # (Auto) 0.4 10^3/uL (0.2-0.9) 11/14/21 11:50 Eos # (Auto) 0.4 10^3/uL (0.0-0.8) 11/14/21 11:50 Baso # (Auto) 0.0 10^3/uL (0.0-0.1) 11/14/21 11:50 Nucleated RBC % (auto) 0 % 11/14/21 11:50 Nucleated RBCs # 0.0 /100WBC 11/14/21 11:50 Sodium 135 mmol/L (136-145) L 11/14/21 11:50 Potassium 4.1 mmol/L (3.5-5.1) 11/14/21 11:50 Chloride 101 mmol/L (98-107) 11/14/21 11:50 Carbon Dioxide 23 mmol/L (22-29) 11/14/21 11:50 Anion Gap 15.1 (5-19) 11/14/21 11:50 BUN 25 mg/dL (8-23) H 11/14/21 11:50 Creatinine 1.6 mg/dL (0.7-1.2) H 11/14/21 11:50 GFR Calculation 44.2 mL/min (90-130) L 11/14/21 11:50 Glucose 361 mg/dL (65-115) H 11/14/21 11:50 Calculated Osmolality 299 mOsm/kg (285-295) H 11/14/21 11:50 Calcium 9.9 mg/dL (8.5-10.5) 11/14/21 11:50 Magnesium 1.6 mg/dL (1.7-2.3) L 11/14/21 11:50 Total Bilirubin 0.4 mg/dL (0.15-1.2) 11/14/21 11:50 AST 15 U/L (0-40) 11/14/21 11:50 ALT 24 U/L (0-41) 11/14/21 11:50 Alkaline Phosphatase 88 IU/L (40-130) 11/14/21 11:50 Troponin T Baseline 20 ng/L (0-15) H 11/14/21 11:50 Troponin T 120 Minute 15.67 ng/L (0-15) H 11/14/21 14:31 Delta Troponin T -4.33 ABS# (0-10) L 11/14/21 14:31 Total Protein 7.9 g/dL (6.6-8.7) 11/14/21 11:50 Albumin 4.0 g/dL (3.5-5.2) 11/14/21 11:50 Globulin 3.9 g/dL (1.3-4.6) 11/14/21 11:50 Discharge Plan Discharge Patient Disposition: Home Clinical Impression: TIA (transient ischemic attack), Ulnar neuropathy, Atypical chest pain, Hypotension Condition: Stable Prescriptions: New clopidogrel 75 mg tablet 75 mg PO DAILY Qty: 30 0RF Discontinued hydrochlorothiazide 12.5 mg Tablet 12.5 mg PO QAM 0RF No Action nitroglycerin 0.4 mg tablet, sublingual 0.4 mg SUBLINGUAL Q5M PRN (Reason: chest pain) Qty: 25 3RF Rx Instructions: do not exceed 3 doses per episode B-complex with vitamin C Tablet 1 tab PO DAILY 0RF (DME) Diabetic Shoes with 3 sets of inserts See Rx Instructions .ROUTE .MEDSUPPLY Qty: 1 0RF Rx Instructions: As directed tizanidine 4 mg tablet 4 mg PO BID PRN (Reason: muscle spasticity) Qty: 60 0RF tramadol 50 mg tablet 50 mg PO BID PRN (Reason: pain) 30 Days Qty: 60 1RF pregabalin 150 mg capsule 150 mg PO DAILY Qty: 30 0RF (DME) Custom Molded Accomodative Orthotics See Rx Instructions .Route .MEDSUPPLY Qty: 1 0RF Rx Instructions: As directed, custom made by [employer] polyethylene glycol 3350 [Miralax] 17 gram Powder In Packet 17 g PO DAILY PRN (Reason: Constipation) 0RF semaglutide 0.25 mg or 0.5 mg(2 mg/1.5 mL) Pen Injector 0.5 mg SUBCUT Q7D 0RF Rx Instructions: ON SUNDAYS magnesium oxide 400 mg magnesium Tablet 400 mg PO DAILY 0RF cholecalciferol (vitamin D3) 25 mcg (1,000 unit) Tablet 25 mcg PO QAM 0RF pantoprazole 40 mg tablet,delayed release (DR/EC) 40 mg PO DAILY 0RF Rx Instructions: TAKE 30 MINUTES BEFORE MEALS metoprolol succinate 100 mg Tablet Extended Release 24 Hr 50 mg PO QAM 0RF amlodipine 5 mg Tablet 5 mg PO QAM 0RF insulin glargine [Lantus Solostar U-100 Insulin] 100 unit/mL (3 mL) Insulin Pen 8 - 10 unit SUBCUT BEDTIME 0RF lisinopril 10 mg Tablet 10 mg PO QAM 30 Days Qty: 30 3RF aspirin [[place] Low Dose Aspirin] 81 mg Tablet,Delayed Release (Dr/Ec) 81 mg PO QAM 30 Days Qty: 30 3RF (DME) Blood Pressure Kit Kit See Rx Instructions .Route Qty: 1 0RF Rx Instructions: As directed glipizide 5 mg tablet 5 mg PO QAM 0RF Lipitor 40 mg Tablet 40 mg PO BEDTIME 0RF Plavix 75 mg Tablet 75 mg PO DAILY 0RF Discharge Orders: Discharge ED (Routine); Ordered 11/14/21 Ordered By: Spencer Naylor Referrals: Pam Diaz MD [Primary Care Provider] - Discharge Diet: Usual diet Discharge Activity: Limit activity as instructed Patient Instructions: Opioid Safety Activity Restrictions/Additional Instructions: Case management make arrangements for you to have a MRI as an outpatient and follow-up with neurology. We will also set up a Lexiscan sestamibi stress test. 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
--- NOTE | 2021-11-14 12:51 | CT_ITS ---
WS: [id number] CTA HEAD AND NECK TECHNIQUE: Contrast enhanced CTA of the head and neck with coronal and sagittal reformatted images an d maximum intensity projection (MIP) images. NASCET criteria utilized. CLINICAL INFORMATION: TIA/CVA COMPARISON: None. DLP: 572.[address] scans at [facility] use at least one of these dose optimization techniques: automated e xposure control; mA and/or kV adjustment per patient size (includes targeted exams where dose is matc hed to clinical indication); or iterative reconstruction. FINDINGS: RIGHT: RIGHT common carotid artery is patent. Mild eccentric noncalcified plaque RIGHT carotid bulb e xtending into the ICA without significant stenosis. RIGHT ICA is patent to the skull base. LEFT: LEFT common carotid artery is patent. No significant LEFT ICA stenosis. Minimal atheromatous pl aque LEFT carotid bulb. LEFT ICA is patent to the skull base. INTRACRANIAL CTA: Both vertebral arteries are patent. Codominant and patent vertebral arteries bilaterally. Basilar art yoselin is patent. Normal vascularity to the WINDOWS SYSTEM ADMIN territory bilaterally. Both ICAs are patent at the skull base. Normal vascularity to the VIJAYA and MCA territories bilaterally . No flow-limiting stenosis or aneurysm. Mild spondylitic changes cervical spine. Chronic infarct LEF T bro radiata unchanged from the prior examinations. CT/CT angio headneck* [id number] IMPRESSION: 1. No significant ICA stenosis bilaterally. 2. Codominant and patent vertebral arteries bilaterally. 3. Unremarkable intracranial CTA. No evidence of flow-limiting stenosis or aneu rysm.
[2021-11-14 13:00] LABS: Troponin(5th) Baseline 20 ng/L (0-15)
--- NOTE | 2021-11-14 14:00 | ECG_ITS ---
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 Measurements Intervals [place] Rate: 76 P: 54 KS: 208 QRS: -2 QRSD: 115 T: 42 QT: 401 QTc: 452 Interpretive Statements SINUS RHYTHM WITH SINUS ARRHYTHMIA MODERATE INTRAVENTRICULAR CONDUCTION DELAY [110+ ms QRS DURATION] Compared to ECG 11/14/2021 11:52:20 Intraventricular conduction delay now present Myocardial infarct finding no longer present Electronically Signed On 11-14-2021 16:59:05 CDT by Tacos Anderson M.D. [id number]
[2021-11-14] MEDS: sodium chloride 0.9% 500 ML 999 ML IV (14:15)
[2021-11-14 15:02] LABS: Troponin 5 2HR 15.67 ng/L (0-15)
[2021-11-14 15:05] LABS: Troponin 5 2HR Delta -4.33 ABS# (0-10)
[2021-11-14 15:20] VITALS: BP 154/99; PULSE 74; RESP 14; O2SAT 100
--- NOTE | 2021-11-15 08:36 | DCPLANNER ---
Addendum entered by Lili Casas 12/03/21 15:56: [facility] [place] [facility] - patient did attend appointment. Addendum entered by Lili Casas 12/03/21 15:54: Patient had a follow up appointment scheduled for 11.22.21 with neurology - patient did attend appointment. Addendum entered by Lili Casas 11/15/21 08:42: Patient has [facility] insurance, assistant case manager is unable to schedule a stress test for patient. conference center manager did send patients information to the front office staff at [facility], for patient to be seen. A stress test can be ordered from a coal handling supervisor. Patients information will be printed and reviewed. Clinic will call patient with appointment information. Original Note: conference center manager had message to schedule an outpatient stress test for patient. conference center manager faxed signed order for stress test to centralized scheduling, who will call patient with appointment information.
--- NOTE | 2021-11-15 08:54 | DCPLANNER ---
b2b sales manager had message to schedule an outpatient MRI, patient has [employer] insurance, caser up is unable to schedule the MRI from the ER. b2b sales manager sent patients information to the front office staff at neurology for patient to be seen and have MRI if needed. Patients information will be printed and reviewed. Clinic will call patient with appointment information.
== END 2021-11-14 15:34 | disposition home or self-care (01) ==
PROVIDERS: Emergency Provider Family Medicine; PCP Family Medicine
DX: G45.9 Transient cerebral ischemic attack, unspecified (principal); G56.20 Lesion of ulnar nerve, unspecified upper limb; R07.89 Other chest pain; I95.9 Hypotension, unspecified; Z79.84 Long term (current) use of oral hypoglycemic drugs; Z79.02 Long term (current) use of antithrombotics/antiplatelets; Z79.82 Long term (current) use of aspirin; Z79.4 Long term (current) use of insulin; E11.9 Type 2 diabetes mellitus without complications; E78.5 Hyperlipidemia, unspecified
CPT/HCPCS: 36415; 70450; 70496; 70498; 71045; 80053; 83735; 84484; 85025; 93005; 99285; J7040; Q9967

== ENCOUNTER 2021-11-20 10:15 | Emergency (ER) | payer OTHER, SELFPAY ==
[2021-11-20 10:44] VITALS: BP 106/78; PULSE 87; RESP 20; O2SAT 100
--- NOTE | 2021-11-20 10:47 | ECG_ITS ---
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 Measurements Intervals [place] Rate: 86 P: 10 GA: 165 QRS: -23 QRSD: 100 T: 31 QT: 366 QTc: 439 Interpretive Statements SINUS RHYTHM BORDERLINE LEFT AXIS DEVIATION [QRS AXIS < -20] Compared to ECG 11/14/2021 14:03:25 Sinus arrhythmia no longer present Intraventricular conduction delay no longer present Electronically Signed On 11-20-2021 18:22:03 CDT by Hussain Flores M.D. [id number]
--- NOTE | 2021-11-20 10:47 | XRR_ITS ---
PROCEDURE INFORMATION: Exam: XR Chest Exam date and time: 11/20/2021 11:15 AM Age: 61 years old Clinical indication: Cough and dyspnea; Additional info: Dyspnea/cough TECHNIQUE: Imaging protocol: Radiologic exam of the chest. Views: 1 view. COMPARISON: CR XR chest 1V portable [id number] 11/14/2021 11:53 AM FINDINGS: Lungs: Unremarkable. No consolidation. Pleural spaces: Unremarkable. No pleural effusion. No pneumothorax. Heart/Mediastinum: Unremarkable. No cardiomegaly. Bones/joints: Unremarkable. XR/XR chest 1V portable [id number] IMPRESSION: No acute findings.
[2021-11-20] MEDS: aspirin 81 mg Chew Tablet 324 MG PO (10:52)
--- NOTE | 2021-11-20 10:54 | CT_ITS ---
WS: [id number] CT ABDOMEN AND PELVIS NONCONTRAST HISTORY: Generalized abdominal pain with nausea, vomiting and dizziness. TECHNIQUE: Imaging performed through the abdomen and pelvis. Coronal and sagittal reformats are submi tted. All CT scans at [facility] use at least one of these dose optimization techniques: auto mated exposure control; mA and/or kV adjustment per patient size (includes targeted exams where dose is matched to clinical indication); or iterative reconstruction. DLP: 1203.79 mGy.cm COMPARISON: 03/07/2017 Lower thorax: 4 mm noncalcified nodule LEFT lung base is stable since 2017. Heart size is normal. Sma ll hiatal hernia. Liver: Normal size liver. No mass or bile duct dilatation. Gallbladder: Normal gallbladder. Pancreas: Normal size and attenuation. Normal pancreatic duct. No pancreatitis or mass. Spleen: Normal. Adrenal glands: Normal. No mass. Right kidney: Normal size kidney with no mass or hydronephrosis. Left kidney: Normal size kidney. Low-attenuation mass in the mid kidney measures 14 mm. [place] un its are low suggesting this may be a cyst. No change since 2017. Aorta: Mild atherosclerosis abdominal aorta with no aneurysm. No free fluid, intraperitoneal air or significant lymphadenopathy. GI tract: Nondistended stomach. No small bowel obstruction. The appendix is been removed. There is a very nonspecific hypodensities small bowel nodule in the jejunostomy measuring 9 mm. Abdominal wall: Negative. No hernia. Pelvis: No free fluid or adenopathy. Mild diffuse bladder wall thickening is probably due to underdis tention. Osseous structures: Lytic areas in the L2 and L3 vertebral bodies are probably Schmorl's nodes defect s. Sclerotic focus RIGHT acetabulum. Stable. CT/CT abdomen pelvis wo con [id number] IMPRESSION: 1. No ascites or free air. 2. Very nonspecific 9 mm high density intraluminal small bowel nodule. This ma y be undigested food particle, partially thrombosed small bowel lesion such as an adenoma/polyp or hemangioma. Please correlate with any signs of rectal bleed ing. Suggest 3-[address] follow-up to be done with and without IV contrast. No oral contrast. 3. Prior appendectomy.
[2021-11-20 10:59] LABS: Basophils # 0.1 10^3/uL (0.0-0.1); Basophils % 0.8 %; Eosinophils # 0.4 10^3/uL (0.0-0.8); Eosinophils % 5.8 %; Hematocrit 35.1 % (42.0-52.0); Hemoglobin 11.9 g/dL (11.7-16.6); Lymphocytes # 1.3 10^3/uL (0.8-4.8); Lymphocytes % 20.3 %; Mean Corpuscular HGB Conc 33.9 g/dL (30.0-36.0); Mean Corpuscular Hemoglobin 31.3 pg (28.0-34.0); Mean Corpuscular Volume 92.4 fl (80-94); Mean Platelet Volume 10.9 fL (7.4-10.4); Monocytes # 0.4 10^3/uL (0.2-0.9); Neutrophils # 4.14 10^3/uL (1.8-7.7); Neutrophils % 66.8 %; Nucleated Red Blood Cells % 0 %; Platelet Count 220 10^3/cmm (130-400); Red Cell Distribution Width 12.9 % (12.1-15.1); White Blood Count 6.2 10^3/uL (4.0-10.0)
--- NOTE | 2021-11-20 11:07 | ED_ITS ---
HPI - Chest Pain General: Chief Complaint: Chest Pain Stated Complaint: cp,sob Time Seen by Provider: 11/20/21 10:45 Source: patient Mode of arrival: ambulatory Limitations: no limitations History of Present Illness: 61-year-old male presents emergency room complaining of nausea and vomiting, tightness in his chest dizziness when he first stands. He has had the symptoms intermittently for over a week recently about a week ago and his cardiac enzymes were negative. States the nausea and vomiting was significantly increased in the last 2 days. Relates most discomfort to the epigastric area. He has no known history of coronary artery disease but he is diabetic. MD complaint: chest pain Onset (ago): week(s) (2) Timing of current episode: episodic Prior episodes: Yes Onset: during rest Pain location: substernal and left chest Pain radiation: none Severity: mild Quality: tightness, aching and heaviness Relieving factors: nothing Exacerbating factors: nothing Associated symptoms: Reports dyspnea; Deny abdominal pain, diaphoresis, fever(s), leg edema, nausea, palpitations, sense of impending doom, syncope or vomiting Treatment prior to arrival: none Review of Systems Const: Denies: fever(s) or diaphoresis ENMT: Denies: throat pain, ear or mastoid pain, nasal discharge or nasal congestion Card: Denies: palpitations or syncope Resp: Reports: dyspnea GI: Denies: abdominal pain, nausea or vomiting : Denies: flank pain, dysuria, urinary frequency or urinary urgency Skin/Breast: Denies: rash or pruritus PFSH ED PFSH: Medical History Degenerative lumbar disc Diabetes mellitus 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 Hyperlipidemia 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 Lumbar disc disease with radiculopathy Pain management contract signed Surgical History Hx of appendectomy Hx of cholecystectomy Hx of foot surgery Family History Denies family history of Anesthesia complication Social History Smoking and tobacco status: never smoked Alcohol intake: never Caregiver/support person: Yes Lives independently: Yes History of recent travel: No Physical Exam Const: GENERAL APPEARANCE: cooperative and comfortable ORIENTATION/CONSCIOUSNESS: Yes awake, Yes oriented to person, Yes oriented to place and Yes oriented to time HENMT: COMMON NORMALS: normocephalic, atraumatic and hearing grossly normal bilaterally HEAD & SCALP: normocephalic and atraumatic Neck/C-Spine: COMMON NORMALS: no JVD Resp: COMMON NORMALS: normal respiratory effort, No retractions, No use of accessory muscles and clear to auscultation bilaterally AUSCULTATION: clear to auscultation bilaterally Cardio: COMMON NORMALS: no JVD, regular rate, regular rhythm and No murmurs present (Cardio) RATE: regular rate RHYTHM: regular rhythm GI: COMMON NORMALS: Soft to palpation and No hepatosplenomegaly present AUSCULTATION: Yes normoactive bowel sounds PALPATION: Yes Soft to palpation, No Tenderness to palpation present (GI), No Guarding due to palpation present (GI) and Yes No hepatosplenomegaly present Extremity: COMMON NORMALS: normal to inspection, capillary refill normal, no clubbing, cyanosis or edema, no calf tenderness and no pedal edema Neuro: SENSORIUM/ORIENTATION: Yes oriented to person, Yes oriented to place and Yes oriented to time Skin: COMMON NORMALS: no rashes or lesions noted GENERAL SKIN EXAM: no rashes or lesions noted Course Vital Signs: Vital signs: Vital Signs Pulse Rate 80 11/20/21 12:22 Respiratory Rate 16 11/20/21 12:22 Blood Pressure 116/78 11/20/21 12:22 Pulse Oximetry 98 11/20/21 12:22 MDM - Chest Pain Medical Decision Making EKG and serial enzymes negative. After discussion with patient we will discharge patient home set him up for follow-up with cardiology and increase juarez toprazole to twice daily. Lab Data : 11/20/21 10:49 11/20/21 10:49 Radiology Impressions Chest X-Ray 11/20/21 10:47 IMPRESSION: No acute findings. Abdomen/Pelvis CT 11/20/21 10:54 IMPRESSION: 1. No ascites or free air. 2. Very nonspecific 9 mm high density intraluminal small bowel nodule. This may be undigested food particle, partially thrombosed small bowel lesion such as an adenoma/polyp or hemangioma. Please correlate with any signs of rectal bleeding. Suggest 3-[address] follow-up to be done with and without IV contrast. No oral contrast. 3. Prior appendectomy. Laboratory Results WBC 6.2 10^3/uL (4.0-10.0) 11/20/21 10:49 RBC 3.80 10^6/uL (4.1-5.3) L 11/20/21 10:49 Hgb 11.9 g/dL (11.7-16.6) 11/20/21 10:49 Hct 35.1 % (42.0-52.0) L 11/20/21 10:49 MCV 92.4 fl (80-94) 11/20/21 10:49 MCH 31.3 pg (28.0-34.0) 11/20/21 10:49 MCHC 33.9 g/dL (30.0-36.0) 11/20/21 10:49 RDW 12.9 % (12.1-15.1) 11/20/21 10:49 Plt Count 220 10^3/cmm (130-400) 11/20/21 10:49 MPV 10.9 fL (7.4-10.4) H 11/20/21 10:49 Neut % (Auto) 66.8 % 11/20/21 10:49 Lymph % (Auto) 20.3 % 11/20/21 10:49 Juncos % (Auto) 6.0 % 11/20/21 10:49 Eos % (Auto) 5.8 % 11/20/21 10:49 Baso % (Auto) 0.8 % 11/20/21 10:49 Neut # (Auto) 4.14 10^3/uL (1.8-7.7) 11/20/21 10:49 Lymph # (Auto) 1.3 10^3/uL (0.8-4.8) 11/20/21 10:49 Juncos # (Auto) 0.4 10^3/uL (0.2-0.9) 11/20/21 10:49 Eos # (Auto) 0.4 10^3/uL (0.0-0.8) 11/20/21 10:49 Baso # (Auto) 0.1 10^3/uL (0.0-0.1) 11/20/21 10:49 Nucleated RBC % (auto) 0 % 11/20/21 10:49 Nucleated RBCs # 0.0 /100WBC 11/20/21 10:49 Sodium 135 mmol/L (136-145) L 11/20/21 10:49 Potassium 4.2 mmol/L (3.5-5.1) 11/20/21 10:49 Chloride 103 mmol/L (98-107) 11/20/21 10:49 Carbon Dioxide 19 mmol/L (22-29) L 11/20/21 10:49 Anion Gap 17.2 (5-19) 11/20/21 10:49 BUN 33 mg/dL (8-23) H 11/20/21 10:49 Creatinine 1.2 mg/dL (0.7-1.2) 11/20/21 10:49 GFR Calculation 61.6 mL/min (90-130) L 11/20/21 10:49 Glucose 214 mg/dL (65-115) H 11/20/21 10:49 Calculated Osmolality 294 mOsm/kg (285-295) 11/20/21 10:49 Calcium 9.6 mg/dL (8.5-10.5) 11/20/21 10:49 Total Bilirubin 0.6 mg/dL (0.15-1.2) 11/20/21 10:49 AST 18 U/L (0-40) 11/20/21 10:49 ALT 25 U/L (0-41) 11/20/21 10:49 Alkaline Phosphatase 86 IU/L (40-130) 11/20/21 10:49 Troponin T Baseline 16 ng/L (0-15) H 11/20/21 10:49 Troponin T 120 Minute 16.35 ng/L (0-15) H 11/20/21 12:52 Delta Troponin T 0.35 ABS# (0-10) 11/20/21 12:52 Total Protein 8.5 g/dL (6.6-8.7) 11/20/21 10:49 Albumin 4.2 g/dL (3.5-5.2) 11/20/21 10:49 Globulin 4.3 g/dL (1.3-4.6) 11/20/21 10:49 Lyme Ab (Western Blot) <0.90 index 11/21/21 11:23 E. chaffeensis IgG Ab <1:64 11/21/21 11:23 E. chaffeensis IgM Ab <1:20 11/21/21 11:23 E. chaffeensis Interp See note 11/21/21 11:23 E. gilbertoffeensis Comment Not Reportable 11/21/21 11:23 Discharge Plan Discharge Patient Disposition: Home Clinical Impression: Atypical chest pain, Dyspepsia Condition: Stable Prescriptions: Changed pantoprazole 40 mg tablet,delayed release (DR/EC) 40 mg PO BID Qty: 0 0RF Rx Instructions: TAKE 30 MINUTES BEFORE MEALS No Action nitroglycerin 0.4 mg tablet, sublingual 0.4 mg SUBLINGUAL Q5M PRN (Reason: chest pain) Qty: 25 3RF Rx Instructions: do not exceed 3 doses per episode (DME) Diabetic Shoes with 3 sets of inserts See Rx Instructions .ROUTE .MEDSUPPLY Qty: 1 0RF Rx Instructions: As directed tramadol 50 mg tablet 50 mg PO BID PRN (Reason: pain) 30 Days Qty: 60 1RF pregabalin 150 mg capsule 150 mg PO DAILY Qty: 30 0RF doxycycline hyclate 100 mg tablet 100 mg PO BID 14 Days Qty: 28 0RF (DME) Custom Molded Accomodative Orthotics See Rx Instructions .Route .MEDSUPPLY Qty: 1 0RF Rx Instructions: As directed, custom made by [employer] polyethylene glycol 3350 [Miralax] 17 gram Powder In Packet 17 g PO DAILY PRN (Reason: Constipation) 0RF semaglutide 0.25 mg or 0.5 mg(2 mg/1.5 mL) Pen Injector 0.5 mg SUBCUT Q7D 0RF Rx Instructions: ON SUNDAYS magnesium oxide 400 mg magnesium Tablet 400 mg PO DAILY 0RF cholecalciferol (vitamin D3) 25 mcg (1,000 unit) Tablet 25 mcg PO QAM 0RF metoprolol succinate 100 mg Tablet Extended Release 24 Hr 50 mg PO QAM 0RF amlodipine 5 mg Tablet 5 mg PO QAM 0RF insulin glargine [Lantus Solostar U-100 Insulin] 100 unit/mL (3 mL) Insulin Pen 8 - 10 unit SUBCUT BEDTIME 0RF aspirin [Molina Low Dose Aspirin] 81 mg Tablet,Delayed Release (Dr/Ec) 81 mg PO QAM 30 Days Qty: 30 3RF (DME) blood pressure monitor [Blood Pressure Kit] Kit See Rx Instructions .Route Qty: 1 0RF Rx Instructions: As directed glipizide 5 mg tablet 5 mg PO QAM 0RF atorvastatin [Lipitor] 40 mg Tablet 80 mg PO BEDTIME 0RF clopidogrel 75 mg tablet 75 mg PO DAILY Qty: 30 0RF tizanidine 4 mg tablet 4 mg PO .THREE TIMES WEEKLY 0RF lisinopril 10 mg tablet 5 mg PO QAM 0RF Renal Multivit Formula Forte 1 mg Tablet 1 tab PO DAILY 0RF Discharge Orders: Discharge ED (Routine); Ordered 11/20/21 Ordered By: Spencer Naylor Referrals: Pam Diaz MD [Primary Care Provider] - Patient Instructions: Opioid Safety Coding Level of Care Code ED Silver Steward for Chg Fwd Exam Comprehensive
[2021-11-20 11:27] LABS: Alanine Aminotransferase 25 U/L (0-41); Albumin Level 4.2 g/dL (3.5-5.2); Alkaline Phosphatase 86 IU/L (40-130); Anion Gap 17.2 (5-19); Aspartate Amino Transferase 18 U/L (0-40); Blood Urea Nitrogen 33 mg/dL (8-23); Calcium 9.6 mg/dL (8.5-10.5); Carbon Dioxide 19 mmol/L (22-29); Chloride 103 mmol/L (98-107); Globulin 4.3 g/dL (1.3-4.6); Glomerular Filtration Rate 61.6 mL/min (90-130); Glucose 214 mg/dL (65-115); Osmolality Calculated 294 mOsm/kg (285-295); Potassium 4.2 mmol/L (3.5-5.1); Sodium 135 mmol/L (136-145); Total Bilirubin 0.6 mg/dL (0.15-1.2); Total Protein 8.5 g/dL (6.6-8.7)
[2021-11-20 11:28] LABS: Troponin(5th) Baseline 16 ng/L (0-15)
[2021-11-20 12:22] VITALS: BP 116/78; PULSE 80; RESP 16; O2SAT 98
--- NOTE | 2021-11-20 12:47 | ECG_ITS ---
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 Measurements Intervals [place] Rate: 86 P: 10 WV: 165 QRS: -23 QRSD: 100 T: 31 QT: 366 QTc: 439 Interpretive Statements SINUS RHYTHM BORDERLINE LEFT AXIS DEVIATION [QRS AXIS < -20] Compared to ECG 11/14/2021 14:03:25 Sinus arrhythmia no longer present Intraventricular conduction delay no longer present Electronically Signed On 11-20-2021 18:23:44 CDT by Hussain Flores M.D. [id number]
--- NOTE | 2021-11-20 12:50 | PC.PHAR ---
PT STATES HE TAKES CARE OF HIS OWN MEDICATIONS-PT STATES HE TOOK HIS AM MEDS THIS MORNING BUT STATES HE THREW THEM BACK UP-PT STATES HE HAS BEEN OUT OF HIS LYRICA FOR ABOUT A WEEK-PT STATES HE WAS JUST TAKING 40MG HS OF HIS LIPITOR STATES HE HAS NOW STARTED TAKING THE 80MG HS PTS [facility] LIPITOR 80MG HS-PTS [facility] MED L[facility] HAS GLIPIZIDE 5MG BID PT STATES JUST TAKES 5MG QAM-[facility] HAS LANTUS SOLOSTAR 15 UNITS DAILY PT STATES HE USES 8-10 UNITS HS-[facility] HAS PROTONIX 40MG BID PT STATES JUST TAKES 40MG DAILY-PT STATES HE TAKES TIZANIDINE 4MG THREE TIMES A WEEK [facility] MED L[facility] HAS 4MG BID PRN-NOTES ARE MADE IN THE PHARMACY COMMENTS
[2021-11-20 13:32] LABS: Troponin 5 2HR 16.35 ng/L (0-15)
[2021-11-20 13:33] LABS: Troponin 5 2HR Delta 0.35 ABS# (0-10)
[2021-11-22 15:33] LABS: Lyme AB Screen <0.90 index
[2021-11-29 21:47] LABS: E. Chaffeensis AB IGG <1:64; E. Chaffeensis AB IGM <1:20
[2021-11-30 18:03] LABS: RMSF IGG DETECTED; RMSF IGM NOT DETECTED
== END 2021-11-20 14:29 | disposition home or self-care (01) ==
PROVIDERS: Nurse Practitioner Family; Emergency Provider Family Medicine; PCP Family Medicine
DX: R07.89 Other chest pain (principal); R10.13 Epigastric pain; Z79.84 Long term (current) use of oral hypoglycemic drugs; Z79.02 Long term (current) use of antithrombotics/antiplatelets; Z79.82 Long term (current) use of aspirin; Z79.4 Long term (current) use of insulin; E11.9 Type 2 diabetes mellitus without complications; E78.5 Hyperlipidemia, unspecified; I10 Essential (primary) hypertension
CPT/HCPCS: 36415; 71045; 74176; 80053; 84484; 85025; 86618; 86666; 86757; 93005; 99285

== ENCOUNTER → 2021-11-21 09:54 | Outpatient (BNVA) | payer OTHER, SELFPAY | PROVIDERS: PCP Family Medicine; Visit Provider Nurse Practitioner Family | DX: S30.860A Insect bite (nonvenomous) of lower back and pelvis, initial encounter (principal); W57.XXXA Bitten or stung by nonvenomous insect and other nonvenomous arthropods, initial encounter; R11.2 Nausea with vomiting, unspecified; R51.9 Headache, unspecified; R42 Dizziness and giddiness | CPT/HCPCS: 99214 ==

== ENCOUNTER → 2021-11-22 09:56 | Outpatient (BNVA) | payer OTHER, SELFPAY | PROVIDERS: PCP Family Medicine; Referring Provider Family Medicine; Visit Provider Nurse Practitioner | DX: E11.42 Type 2 diabetes mellitus with diabetic polyneuropathy (principal); E11.65 Type 2 diabetes mellitus with hyperglycemia; Z79.4 Long term (current) use of insulin | CPT/HCPCS: 99203; 99204 ==

== ENCOUNTER → 2022-02-26 09:10 | Outpatient (BNVA) | payer OTHER, SELFPAY | PROVIDERS: PCP Family Medicine; Referring Provider Family Medicine; Visit Provider Podiatrist Foot & Ankle Surgery | DX: E11.42 Type 2 diabetes mellitus with diabetic polyneuropathy (principal); Z79.4 Long term (current) use of insulin; M20.41 Other hammer toe(s) (acquired), right foot; M20.42 Other hammer toe(s) (acquired), left foot; M21.371 Foot drop, right foot; M21.372 Foot drop, left foot; M21.41 Flat foot [pes planus] (acquired), right foot; M21.42 Flat foot [pes planus] (acquired), left foot | CPT/HCPCS: 99214 ==

== ENCOUNTER → 2022-05-09 13:16 | Outpatient (BNVA) | payer OTHER, SELFPAY | PROVIDERS: PCP Family Medicine; Visit Provider Podiatrist Foot & Ankle Surgery | DX: E11.42 Type 2 diabetes mellitus with diabetic polyneuropathy (principal); E11.8 Type 2 diabetes mellitus with unspecified complications; M21.371 Foot drop, right foot; M21.372 Foot drop, left foot; M21.41 Flat foot [pes planus] (acquired), right foot; M21.42 Flat foot [pes planus] (acquired), left foot; M20.41 Other hammer toe(s) (acquired), right foot; Z79.4 Long term (current) use of insulin; M20.42 Other hammer toe(s) (acquired), left foot | CPT/HCPCS: 99214 ==

== ENCOUNTER → 2022-05-23 14:15 | Outpatient (BNVA) | payer OTHER, SELFPAY | PROVIDERS: PCP Family Medicine; Visit Provider Podiatrist Foot & Ankle Surgery | DX: E11.8 Type 2 diabetes mellitus with unspecified complications (principal); E11.42 Type 2 diabetes mellitus with diabetic polyneuropathy; M21.371 Foot drop, right foot; M21.372 Foot drop, left foot; M21.41 Flat foot [pes planus] (acquired), right foot; M21.42 Flat foot [pes planus] (acquired), left foot; M20.42 Other hammer toe(s) (acquired), left foot; M20.41 Other hammer toe(s) (acquired), right foot; Z79.4 Long term (current) use of insulin | CPT/HCPCS: 99214 ==

== ENCOUNTER 2022-06-13 14:28 | Outpatient (CLI) | payer OTHER, SELFPAY | END 2022-06-13 14:29 | disposition home or self-care (01) | LOC: SPT 14:30 | PROVIDERS: PCP Family Medicine; Visit Provider Podiatrist Foot & Ankle Surgery | DX: Z46.89 Encounter for fitting and adjustment of other specified devices (principal); E11.42 Type 2 diabetes mellitus with diabetic polyneuropathy; E11.621 Type 2 diabetes mellitus with foot ulcer; S91.301A Unspecified open wound, right foot, initial encounter; X58.XXXA Exposure to other specified factors, initial encounter; M20.40 Other hammer toe(s) (acquired), unspecified foot; M21.371 Foot drop, right foot; M21.372 Foot drop, left foot; M21.41 Flat foot [pes planus] (acquired), right foot; M21.42 Flat foot [pes planus] (acquired), left foot | CPT/HCPCS: 11042; L4361 ==

== ENCOUNTER → 2022-06-20 15:17 | Outpatient (BNVA) | payer OTHER, SELFPAY | PROVIDERS: PCP Family Medicine; Visit Provider Internal Medicine Cardiovascular Disease | DX: R06.02 Shortness of breath (principal); I10 Essential (primary) hypertension; E78.2 Mixed hyperlipidemia; R07.9 Chest pain, unspecified; M54.9 Dorsalgia, unspecified; M51.16 Intervertebral disc disorders with radiculopathy, lumbar region; E11.69 Type 2 diabetes mellitus with other specified complication; Z79.4 Long term (current) use of insulin; Z86.73 Personal history of transient ischemic attack (TIA), and cerebral infarction without residual deficits | CPT/HCPCS: 99214; Q3014 ==

== ENCOUNTER → 2022-06-27 13:54 | Outpatient (BNVA) | payer OTHER, SELFPAY | PROVIDERS: PCP Family Medicine; Visit Provider Podiatrist Foot & Ankle Surgery | DX: E11.621 Type 2 diabetes mellitus with foot ulcer (principal); L97.512 Non-pressure chronic ulcer of other part of right foot with fat layer exposed; M20.42 Other hammer toe(s) (acquired), left foot; M20.41 Other hammer toe(s) (acquired), right foot; Z79.4 Long term (current) use of insulin; E11.8 Type 2 diabetes mellitus with unspecified complications; E11.42 Type 2 diabetes mellitus with diabetic polyneuropathy; M21.371 Foot drop, right foot; M21.372 Foot drop, left foot; M21.41 Flat foot [pes planus] (acquired), right foot; M21.42 Flat foot [pes planus] (acquired), left foot | CPT/HCPCS: 99214 ==

== ENCOUNTER 2022-07-17 08:34 | Outpatient (CLI) | payer OTHER, SELFPAY ==
[2022-07-17 08:52] VITALS: BMI 31.0
--- NOTE | 2022-07-17 09:04 | NMCV_ITS ---
NM lamonte perf SPECT r/s* [id number] Wayne Aguilar Age: 61 Gender: M : 1960 Exam Date: 07/17/2022 09:46 Ordering Phys: Anastasiia Garcia MD ([email or web address]) Technologist: SARAHI Garcia Exam Location: [facility] Indications: CHEST PAIN STRESS TEST Please see separate stress test report in [facility] for full findings IMAGE PROTOCOL Rest/Stress 1 Lexiscan Day Radiopharmaceutical Dose (mCi) Administration Site Administered by Rest: Tc-99m 10.4 IV SARAHI [place] Sestamibi Stress:Tc-99m 32.4 IV SARAHI [place] Sestamibi Rest: 17-Jul-2022 60 Discovery 630 Stress: 17-Jul-2022 30 Discovery 630 0.4mg Lexiscan. Images obtained in supine and prone position. SPECT RESULTS Technical Quality: Excellent Raw Data Analysis: Normal Image Corrections: No attenuation or motion correction applied Summed Stress Score: 0 Summed Rest Score: 3 Summed Difference Score: 0 PERFUSION FINDINGS A small area of slightly decreased tracer uptake was noted in the inferior and inferolateral regions. No significant reversibility was noted in these regions FUNCTIONAL RESULTS (calculated via Gated SPECT) Stress Image LV EF (%): 56 Stress EDV (mL):129 TID: 1.01 Stress ESV (mL):57 FUNCTIONAL FINDINGS: Segmental wall motion analysis revealing no gross wall motion abnormalities IMPRESSIONS 1. Myocardial perfusion imaging revealing small area of slightly decreased persistent tracer uptake in the inferior inferolateral region, most likely represent aspiration artifact. 2. Normal LV ejection fraction of 56%. 3. LV wall motion analysis revealing no gross wall motion abnormalities. 4. Normal LV volume Low probability for coronary ischemia, based on the above findings Dr Abdirizak Brewer MD FACC (Electronically Signed) Final Date: 17 July 2022 13:02 S
--- NOTE | 2022-07-17 09:04 | ECG_ITS ---
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 Interpretive Statements NAME OF STUDY: LEXISCAN SESTAMIBI STRESS TEST INDICATION: Back/Chest Pain PROCEDURE: At the baseline, the EKG revealed normal sinus rhythm with a poor R wave progression. Nonspecific T wave changes. The baseline heart was 86 bpm with a blood pressue of 148/81 mm of Hg Lexiscan was infused over a period of 20 seconds. A total of 0.4 milligrams of Lexiscan was infused. The stress phase was continued for a total of 5 minutes. Heart rate at the end of the stress phase was 98 bpm with a blood pressure 120/73 mm of Hg. The EKG at the peak infusion revealed no significant changes. Sestamibi was injected 20 seconds after the Lexiscan infusion. Heart rate at the end of the recovery phase was 99 bpm with a blood pressure of 123/66 mm of Hg. CONCLUSION: 1. No significant EKG changes with the LexiScan infusion 2. No LexiScan induced chest pain or cardiac arrhythmia 3. Normal blood pressure and heart rate response 4. Sestamibi/sestamibi perfusion scan pending; see separate report. Electronically Signed On 07-22-2022 23:24:00 CDT by Abdirizak Brewer M.D. [email or web address]
[2022-07-17] MEDS: regadenoson 0.4 Mg/5 ml Syringe IVP (10:16)
[2022-07-17 10:47] VITALS: BP 123/66; PULSE 98
== END 2022-07-17 08:35 | disposition home or self-care (01) ==
PROVIDERS: PCP Family Medicine; Visit Provider Internal Medicine Cardiovascular Disease
DX: R07.9 Chest pain, unspecified (principal); M54.9 Dorsalgia, unspecified
CPT/HCPCS: 36415; 78452; 93017; 96374; 99214; A9500; J2785

== ENCOUNTER → 2022-07-18 07:43 | Outpatient (BNVA) | payer OTHER, SELFPAY | PROVIDERS: PCP Family Medicine; Visit Provider Podiatrist Foot & Ankle Surgery | DX: E11.621 Type 2 diabetes mellitus with foot ulcer (principal); L97.512 Non-pressure chronic ulcer of other part of right foot with fat layer exposed; E11.8 Type 2 diabetes mellitus with unspecified complications; E11.42 Type 2 diabetes mellitus with diabetic polyneuropathy; M21.371 Foot drop, right foot; M21.372 Foot drop, left foot; M21.41 Flat foot [pes planus] (acquired), right foot; M21.42 Flat foot [pes planus] (acquired), left foot; M20.42 Other hammer toe(s) (acquired), left foot; M20.41 Other hammer toe(s) (acquired), right foot; Z79.84 Long term (current) use of oral hypoglycemic drugs | CPT/HCPCS: 99214 ==

== ENCOUNTER → 2022-07-23 13:03 | Outpatient (BNVA) | payer OTHER, SELFPAY | PROVIDERS: PCP Family Medicine; Visit Provider Thoracic Surgery (Cardiothoracic Vascular Surgery) | DX: I96 Gangrene, not elsewhere classified (principal); E11.621 Type 2 diabetes mellitus with foot ulcer; L97.412 Non-pressure chronic ulcer of right heel and midfoot with fat layer exposed | CPT/HCPCS: 97597; 99213; A6250 ==

== ENCOUNTER → 2022-07-25 08:01 | Outpatient (BNVA) | payer OTHER, SELFPAY | PROVIDERS: PCP Family Medicine; Visit Provider Podiatrist Foot & Ankle Surgery | DX: E11.621 Type 2 diabetes mellitus with foot ulcer (principal); E11.42 Type 2 diabetes mellitus with diabetic polyneuropathy; M20.42 Other hammer toe(s) (acquired), left foot; M20.41 Other hammer toe(s) (acquired), right foot; M21.371 Foot drop, right foot; M21.372 Foot drop, left foot; M21.41 Flat foot [pes planus] (acquired), right foot; M21.42 Flat foot [pes planus] (acquired), left foot; Z79.4 Long term (current) use of insulin; L97.513 Non-pressure chronic ulcer of other part of right foot with necrosis of muscle | CPT/HCPCS: 73630; 99214 ==

== ENCOUNTER → 2022-07-30 15:03 | Outpatient (BNVA) | payer OTHER, SELFPAY | PROVIDERS: PCP Family Medicine; Visit Provider Nurse Practitioner Family | DX: I96 Gangrene, not elsewhere classified (principal); E11.621 Type 2 diabetes mellitus with foot ulcer; L97.512 Non-pressure chronic ulcer of other part of right foot with fat layer exposed | CPT/HCPCS: 97597; A6250 ==

== ENCOUNTER → 2022-08-06 13:51 | Outpatient (BNVA) | payer OTHER, SELFPAY | PROVIDERS: PCP Family Medicine; Visit Provider Nurse Practitioner Family | DX: I96 Gangrene, not elsewhere classified (principal); E11.621 Type 2 diabetes mellitus with foot ulcer; L97.512 Non-pressure chronic ulcer of other part of right foot with fat layer exposed | CPT/HCPCS: 11042; A6219; A6250 ==

== ENCOUNTER → 2022-08-14 10:34 | Outpatient (BNVA) | payer OTHER, SELFPAY | PROVIDERS: PCP Family Medicine; Visit Provider Nurse Practitioner Family | DX: I96 Gangrene, not elsewhere classified (principal); E11.621 Type 2 diabetes mellitus with foot ulcer; L97.512 Non-pressure chronic ulcer of other part of right foot with fat layer exposed | CPT/HCPCS: 97597; A6250 ==

== ENCOUNTER → 2022-08-21 09:28 | Outpatient (BNVA) | payer OTHER, SELFPAY | PROVIDERS: PCP Family Medicine; Visit Provider Nurse Practitioner Family | DX: E11.621 Type 2 diabetes mellitus with foot ulcer (principal); L97.512 Non-pressure chronic ulcer of other part of right foot with fat layer exposed | CPT/HCPCS: 97597; A6021; A6250 ==

== ENCOUNTER → 2022-08-28 10:13 | Outpatient (BNVA) | payer OTHER, SELFPAY | PROVIDERS: PCP Family Medicine; Visit Provider Nurse Practitioner Family | DX: E11.621 Type 2 diabetes mellitus with foot ulcer (principal); L97.512 Non-pressure chronic ulcer of other part of right foot with fat layer exposed | CPT/HCPCS: 97597; A6021; A6250 ==

== ENCOUNTER → 2022-09-04 08:55 | Outpatient (BNVA) | payer OTHER, SELFPAY | PROVIDERS: PCP Family Medicine; Visit Provider Nurse Practitioner Family | DX: E11.621 Type 2 diabetes mellitus with foot ulcer (principal); L97.512 Non-pressure chronic ulcer of other part of right foot with fat layer exposed | CPT/HCPCS: 97597 ==

== ENCOUNTER → 2022-09-11 08:41 | Outpatient (BNVA) | payer OTHER, SELFPAY | PROVIDERS: PCP Family Medicine; Visit Provider Nurse Practitioner Family | DX: E11.621 Type 2 diabetes mellitus with foot ulcer (principal); L97.512 Non-pressure chronic ulcer of other part of right foot with fat layer exposed | CPT/HCPCS: 97597; A6250 ==

== ENCOUNTER 2022-10-04 07:38 | Outpatient (CLI) | payer OTHER, SELFPAY ==
--- NOTE | 2022-10-04 08:00 | MR_ITS ---
WS: [id number] MRI RIGHT FOOT with and without CONTRAST. COMPARISON: Radiograph 07/25/2022 Multiplanar, multisequence imaging is performed with and without contrast. MultiHance 20 mL. Focal soft tissue ulceration involving the lateral foot at the level of the distal fifth metatarsal. Ulceration extends over a length of 12 mm and a depth of 5 mm and extends to the osteotomy site of th e fifth metatarsal. There is volume loss of the distal fifth metatarsal from the osteotomy and volume loss of the proximal fifth toe. No marrow edema or fluid collection is identified at the site of the ulcer. On the postcontrast images there is no enhancing mass or abscess. The bone does not enhance. There is a small amount of artifact at the ulceration bed. This may be from the surgery or debridemen t material. The remaining foot is negative for osteomyelitis or cellulitis also. Hammertoe deformities. Small morgan caneal spur. MR/MR foot RT wo/w con [id number] IMPRESSION: 1. Soft tissue ulceration measuring 12 x 5 mm along the plantar surface distal fifth metatarsal osteotomy site. No significant enhancement. The ulceration tr act does extend to the distal fifth metatarsal. No marrow edema or enhancement. 2. No cellulitis. 3. Hammertoe deformities.
[2022-10-04] MEDS: gadobenate dimeglumine 20 mL vial IV (08:56)
== END 2022-10-04 07:39 ==
LOC: RAD 07:39
PROVIDERS: PCP Family Medicine; Visit Provider Nurse Practitioner Family
DX: E11.621 Type 2 diabetes mellitus with foot ulcer (principal); L97.509 Non-pressure chronic ulcer of other part of unspecified foot with unspecified severity
CPT/HCPCS: 73720; 87070; 87077; 87186; 97597; A6210; A6219; A6250; A9577

== ENCOUNTER → 2022-10-11 07:53 | Outpatient (BNVA) | payer OTHER, SELFPAY | PROVIDERS: PCP Family Medicine; Visit Provider Podiatrist Foot & Ankle Surgery | DX: E11.621 Type 2 diabetes mellitus with foot ulcer (principal); L97.511 Non-pressure chronic ulcer of other part of right foot limited to breakdown of skin; E11.42 Type 2 diabetes mellitus with diabetic polyneuropathy; M20.41 Other hammer toe(s) (acquired), right foot; M20.42 Other hammer toe(s) (acquired), left foot; M21.371 Foot drop, right foot; M21.372 Foot drop, left foot; M21.41 Flat foot [pes planus] (acquired), right foot; M21.42 Flat foot [pes planus] (acquired), left foot; M24.571 Contracture, right ankle; M77.41 Metatarsalgia, right foot; Z79.4 Long term (current) use of insulin | CPT/HCPCS: 73630; 99215 ==

== ENCOUNTER → 2022-10-16 08:01 | Outpatient (BNVA) | payer OTHER, SELFPAY | PROVIDERS: PCP Family Medicine; Visit Provider Podiatrist Foot & Ankle Surgery | DX: E11.42 Type 2 diabetes mellitus with diabetic polyneuropathy (principal); M20.42 Other hammer toe(s) (acquired), left foot; M20.41 Other hammer toe(s) (acquired), right foot; E11.621 Type 2 diabetes mellitus with foot ulcer; Z79.4 Long term (current) use of insulin; M21.41 Flat foot [pes planus] (acquired), right foot; M21.42 Flat foot [pes planus] (acquired), left foot; L97.511 Non-pressure chronic ulcer of other part of right foot limited to breakdown of skin; M24.571 Contracture, right ankle; M77.41 Metatarsalgia, right foot | CPT/HCPCS: 99214 ==

== ENCOUNTER → 2022-11-19 08:22 | Outpatient (BNVA) | payer OTHER, SELFPAY | PROVIDERS: PCP Family Medicine; Visit Provider Podiatrist Foot & Ankle Surgery | DX: E11.621 Type 2 diabetes mellitus with foot ulcer (principal); Z79.4 Long term (current) use of insulin; E11.42 Type 2 diabetes mellitus with diabetic polyneuropathy; M20.41 Other hammer toe(s) (acquired), right foot; M20.42 Other hammer toe(s) (acquired), left foot; M21.41 Flat foot [pes planus] (acquired), right foot; M21.42 Flat foot [pes planus] (acquired), left foot; L97.511 Non-pressure chronic ulcer of other part of right foot limited to breakdown of skin; M24.571 Contracture, right ankle; M77.41 Metatarsalgia, right foot | CPT/HCPCS: 99213 ==

== ENCOUNTER 2022-12-19 08:28 | Emergency (ER) | payer OTHER, SELFPAY ==
[2022-12-19] VITALS (60 sets, daily range): BP systolic 103–169; BP diastolic 72–114; PULSE 94–116; RESP 12–41; O2SAT 82–100; BMI 29.5
--- NOTE | 2022-12-19 08:31 | ED_ITS ---
HPI - Nausea/Vomiting/Diarrhea General: Chief complaint: Nausea/Vomiting/Diarrhea Stated complaint: n/v Time Seen by Provider: 12/19/22 08:30 History of Present Illness: Mr. Aguilar is a 62-year-old gentleman with history of insulin-dependent diabetes, hypertension, hyperlipidemia, prior stroke presenting to the emergency department for evaluation of nausea and vomiting. He notes essentially acute onset symptoms after a chiropractic appointment with neck adjustment yesterday. Since that time he said headache, dizziness, and recurrent episodes of nonbilious and nonbloody emesis. He does have associated abdominal pain. Denies changes in bowel movements or urination. Moderate to severe in intensity. Worse with movement or any p.o. intake. No other specific changes in health, exacerbating, or alleviating factors identified. 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 Hyperlipidemia Hypertension residential (current) use of opiate analgesic Lumbar disc disease with radiculopathy Pain management contract signed Surgical History Hx of appendectomy Hx of cholecystectomy Hx of foot surgery Family History Denies family history of Anesthesia complication Social History Smoking and tobacco status: never smoked Alcohol intake: never Substance/Drug Use: never Caregiver/support person: Yes Lives independently: Yes Physical Exam Const: COMMON NORMALS: patient oriented x3 and alert GENERAL APPEARANCE: cooperative and well developed HENMT: COMMON NORMALS: normocephalic and atraumatic HEAD & SCALP: normoc ephalic and atraumatic Eye: COMMON NORMALS: conjunctivae normal CONJUNCTIVA: Yes conjunctivae normal SCLERA: sclerae normal Neck/C-Spine: COMMON NORMALS: supple GENERAL: Yes trachea midline Resp: COMMON NORMALS: clear to auscultation bilaterally EFFORT & INSPECTION: Yes able to speak in complete sentences AUSCULTATION: clear to auscultation bilaterally Cardio: COMMON NORMALS: regular rate and regular rhythm RATE: regular rate RHYTHM: regular rhythm GI: COMMON NORMALS: Soft to palpation PALPATION: Yes Soft to palpation and No Tenderness to palpation present (GI) Extremity: GENERAL: Yes normal exam except as noted and No edema Neuro: COMMON NORMALS: patient oriented x3, CN's II-XII intact bilaterally and moves all extremities SENSORIUM/ORIENTATION: Yes alert and No Orientation impaired Psych: COMMON NORMALS: mental status grossly normal and Normal thought process present THOUGHT PROCESS: Normal thought process present Course Vital Signs: Vital signs: Vital Signs Pulse Rate 98 12/19/22 13:15 Respiratory Rate 20 H 12/19/22 13:15 Blood Pressure 147/78 12/19/22 13:25 Pulse Oximetry 97 12/19/22 13:15 Oxygen Delivery Me thod Room Air 12/19/22 08:44 MDM - Nausea/Vomiting/Diarrhea Medical Decision Making 62-year-old gentleman presenting with nausea vomiting as well as abdominal pain. Onset of symptoms acute associate with dizziness and headache post chiropractic adjustment. Exam as above. Nontoxic however somewhat ill. No focal neurodeficits. EKG demonstrates sinus rhythm with tachycardia and left axis deviation, no STEMI. Labs with no leukocytosis, normal hemoglobin and platelet count metabolic panel with mild evidence of dehydration. Hyperglycemia present without DKA. Chest x-ray with no lobar consolidation or pneumothorax. CTA head and neck negative for dissection. CT abdomen and pelvis without acute finding to explain symptoms. Incidental findings discussed with patient. During the course patient treated with fluids, antinausea, analgesia, meclizine and has significant improvement. The results of ED evaluation were discussed with the patient including prescriptions and/or symptomatic cares (if applicable) including appropriate and responsible use, followup plan, and return precautions. The patient verbalized understanding and felt safe for discharge. Medical Records I reviewed the patient's medical records. Lab Data I reviewed the patient's lab results. 12/19/22 08:55 12/19/22 08:55 Radiology Impressions Abdomen/Pelvis CT 12/19/22 08:42 IMPRESSION: 1. The bowel gas pattern appears nonobstructive. No interval fluid collections or acute inflammatory stranding changes are appreciated. 2. There is a small sliding-type hiatal hernia demonstrated with slight gastroesophageal fold thickening. Head/Neck CTA 12/19/22 08:42 IMPRESSION: No large vessel stenosis or occlusion. No CT evidence of acute intracranial hemorrhage, mass or acute infarction. [place] Stroke Program Early CT Score (ASPECTS) = 10 IMPRESSION: No carotid stenosis. No occlusion or stenosis of vertebral arteries. REFERENCES: NASCET CRITERIA. The degree of stenosis in the cervical segment of the internal carotid artery is based on NASCET criteria. Normal is no stenosis. Mild is less than 50% stenosis. Moderate is 50-69% stenosis. Severe is 70% to 99% stenosis. Total occlusion is no detectable patent lumen. Laboratory Results WBC 7.7 10^3/uL (4.0-10.0) 12/19/22 08:55 RBC 4.04 10^6/uL (4.1-5.3) L 12/19/22 08:55 Hgb 13.9 g/dL (11.7-16.6) 12/19/22 08:55 Hct 38.9 % (42.0-52.0) L 12/19/22 08:55 MCV 96.3 fl (80-94) H 12/19/22 08:55 MCH 34.4 pg (28.0-34.0) H 12/19/22 08:55 MCHC 35.7 g/dL (30.0-36.0) 12/19/22 08:55 RDW 12.4 % (12.1-15.1) 12/19/22 08:55 Plt Count 277 10^3/cmm (130-400) 12/19/22 08:55 MPV 10.1 fL (7.4-10.4) 12/19/22 08:55 Neut % (Auto) 73.0 % 12/19/22 08:55 Lymph % (Auto) 18.5 % 12/19/22 08:55 [place] % (Auto) 6.4 % 12/19/22 08:55 Eos % (Auto) 1.3 % 12/19/22 08:55 Baso % (Auto) 0.3 % 12/19/22 08:55 Neut # (Auto) 5.62 10^3/uL (1.8-7.7) 12/19/22 08:55 Lymph # (Auto) 1.4 10^3/uL (0.8-4.8) 12/19/22 08:55 [place] # (Auto) 0.5 10^3/uL (0.2-0.9) 12/19/22 08:55 Eos # (Auto) 0.1 10^3/uL (0.0-0.8) 12/19/22 08:55 Baso # (Auto) 0.0 10^3/uL (0.0-0.1) 12/19/22 08:55 Nucleated RBC % (auto) 0 % 12/19/22 08:55 Nucleated RBCs # 0.0 /100WBC 12/19/22 08:55 Sodium 134 mmol/L (136-145) L 12/19/22 08:55 Potassium 4.3 mmol/L (3.5-5.1) 12/19/22 08:55 Chloride 98 mmol/L (98-107) 12/19/22 08:55 Carbon Dioxide 23 mmol/L (22-29) 12/19/22 08:55 Anion Gap 17.3 (5-19) 12/19/22 08:55 BUN 33 mg/dL (8-23) H 12/19/22 08:55 Creatinine 1.4 mg/dL (0.7-1.2) H 12/19/22 08:55 GFR Calculation 51.4 mL/min (90-130) L 12/19/22 08:55 Glucose 330 mg/dL (65-115) H 12/19/22 08:55 POC Glucose 269 mg/dL (70-110) H 12/19/22 12:38 Calculated Osmolality 298 mOsm/kg (285-295) H 12/19/22 08:55 Lactic Acid 1.6 mmol/L (0.5-2.2) 12/19/22 09:10 Calcium 9.6 mg/dL (8.5-10.5) 12/19/22 08:55 Total Bilirubin 0.6 mg/dL (0.15-1.2) 12/19/22 08:55 AST 19 U/L (0-40) 12/19/22 08:55 ALT 24 U/L (0-41) 12/19/22 08:55 Alkaline Phosphatase 78 U/L (40-130) 12/19/22 08:55 Total Protein 9.3 g/dL (6.6-8.7) H 12/19/22 08:55 Albumin 4.3 g/dL (3.5-5.2) 12/19/22 08:55 Globulin 5.0 g/dL (1.3-4.6) H 12/19/22 08:55 Lipase 51 U/L (13-60) 12/19/22 08:55 Discharge Plan Discharge Patient Disposition: Home Clinical Impression: Abdominal pain, Nausea and vomiting, Mild dehydration, Headache, Dizziness Condition: Stable Prescriptions: New Protonix 40 mg tablet,delayed release (DR/EC) 40 mg PO BID 14 Days Qty: 28 0RF Reglan 10 mg tablet 10 mg PO Q6H PRN (Reason: nausea and vomiting) Qty: 20 0RF oxycodone 5 mg tablet 5 mg PO Q4H PRN (Reason: pain) Qty: 10 0RF No Action nitroglycerin 0.4 mg tablet, sublingual 0.4 mg SUBLINGUAL Q5M PRN (Reason: chest pain) Qty: 25 3RF Rx Instructions: do not exceed 3 doses per episode (DME) Diabetic Shoes with 3 sets of inserts See Rx Instructions .ROUTE .MEDSUPPLY Qty: 1 0RF Rx Instructions: As directed tramadol 50 mg tablet 50 mg PO BID PRN (Reason: pain) 30 Days Qty: 60 1RF pregabalin 150 mg capsule 150 mg PO DAILY Qty: 30 0RF (DME) carbon fiber [place] bilaterally- AFO See Rx Instructions .Route .MEDSUPPLY Qty: 1 0RF Rx Instructions: As directed by [employer] (DME) AFO to right See Rx Instructions .Route .MEDSUPPLY Qty: 1 0RF Rx Instructions: As directed by [employer] (DME) Custom Molded Accomodative Orthotics and Diabetic Shoes See Rx Instructions .Route .MEDSUPPLY Qty: 1 0RF Rx Instructions: As directed, custom made by [employer] polyethylene glycol 3350 [Miralax] 17 gram Powder In Packet 17 g PO DAILY PRN (Reason: Constipation) magnesium oxide 400 mg magnesium Tablet See Rx Instructions .ROUTE .COMPLEX Rx Instructions: 400mg po every other day on even days cholecalciferol (vitamin D3) 25 mcg (1,000 unit) Tablet 50 mcg PO QAM aspirin [[place] Low Dose Aspirin] 81 mg Tablet,Delayed Release (Dr/Ec) 81 mg PO QAM 30 Days Qty: 30 3RF (DME) blood pressure monitor [Blood Pressure Kit] Kit See Rx Instructions .Route Qty: 1 0RF Rx Instructions: As directed insulin glargine [Lantus Solostar U-100 Insulin] 100 unit/mL (3 mL) insulin pen 18 unit SUBCUT BEDTIME atorvastatin [Lipitor] 40 mg Tablet 80 mg PO BEDTIME tizanidine 4 mg tablet 4 mg PO Q12H PRN (Reason: Muscle Spasm) lisinopril 10 mg tablet 5 mg PO QAM Renal Multivit Formula Forte 1 mg Tablet 1 tab PO DAILY Fish Oil Concentrate 1,000 mg Capsule 2,000 mg PO BID glipizide 10 mg Tablet 10 mg PO BID Tylenol Ex Str Rapid Release 500 mg Tablet 1,500 mg PO QAM sildenafil 100 mg Tablet 100 mg PO .EVERY 5 DAYS PRN (Reason: Erectile Dysfunction) carboxymethylcellulose sodium 0.5 % Drops 2 drp ophthalmic (eye) TID PRN (Reason: redness) amlodipine 10 mg Tablet 10 mg PO QAM iron 325 mg (65 mg iron) Tablet 325 mg PO QAM lidocaine 5 % Adhesive Patch,Medicated 1 patch topical DAILY PRN (Reason: Pain) Rx Instructions: on for 12 hours off for 12 hours glucose 4 gram Tablet,Chewable 4 g PO Q15M PRN (Reason: for low blood sugar) Rx Instructions: until symptoms of low blood sugar are controlled Colace 100 mg Capsule 200 mg PO BID insulin aspart U-100 100 unit/mL (3 mL) Insulin Pen 4 unit SUBCUT TID tadalafil 20 mg Tablet 20 mg PO DAILY PRN (Reason: Erectile Dysfunction) Rx Instructions: administer approximately 30min before sexual activity; do not use more than 1 dose per 24hrs semaglutide 1 mg/dose (2 mg/1.5 mL) Pen Injector 1 mg SUBCUT Q7D Rx Instructions: on sundays metoprolol succinate 50 mg tablet extended release 24 hr 50 mg PO DAILY clopidogrel 75 mg tablet 75 mg PO QAM Discharge Orders: Discharge ED (Routine); Ordered 12/19/22 Ordered By: James Alford Referrals: Pam Diaz MD [Primary Care Provider] - Discharge Diet: Advance as tolerated and Clear Liquid Discharge Activity: Increase activity as tolerated Patient Instructions: Gastritis (ED), Acute Nausea and Vomiting (ED), Abdominal Pain (ED), Dizziness (ED), Opioid Safety Activity Restrictions/Additional Instructions: Thank you for visiting the emergency department. You were seen and evaluated for abdominal pain, headache, dizziness, nausea vomiting. The exact cause of your symptoms is unclear however may be related to viral syndrome. I do not see evidence of bacterial infection. The treatment is supportive. Please ensure that you are staying hydrated. I will prescribe pain medication which you should use cautiously, I will also prescribe antinausea medication and additional doses of PPI. Follow-up with your primary care provider. Return for uncontrolled symptoms or anything else that you are concerned about and feel needs emergency department evaluation. Coding Level of Care Code ED Hospice Social Worker for Nirmal Uribe
--- NOTE | 2022-12-19 08:40 | XR_ITS ---
WS: [id number] XR chest 1V portable [id number] REASON FOR EXAM: tachycardia FINDINGS: Chest is unchanged compared to 11/20/2021. Heart and mediastinum are within normal limits. Calcified granulomatous disease in both hemithoraces. No focal or diffuse pulmonary parenchymal or pleural abnormality. Bony thorax is intact with mild changes of degenerative spondylosis in the mid and lower thoracic spi ne. IMPRESSION: No acute chest abnormality.
--- NOTE | 2022-12-19 08:41 | ECG_ITS ---
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 Measurements Intervals [place] Rate: 107 P: 38 ID: [id number] QRS: -50 QRSD: 103 T: 46 QT: 351 QTc: 470 Interpretive Statements SINUS TACHYCARDIA LEFT ANTERIOR FASCICULAR BLOCK [QRS AXIS <= -45, QR IN I, RS IN II] Compared to ECG 11/20/2021 10:46:29 Left anterior fascicular block now present Sinus rhythm no longer present Electronically Signed On 12-19-2022 16:46:45 CDT by Tacos Anderson M.D. [id number]
--- NOTE | 2022-12-19 08:42 | CTR_ITS ---
PROCEDURE INFORMATION: Exam: CT Abdomen And Pelvis With Contrast Exam date and time: 12/19/2022 10:25 AM Age: 62 years old Clinical indication: Nausea and vomiting; Abdominal pain; Generalized; Prior surgery; Surgery date: 6+ months; Surgery type: Appy. Gb; Additional info: Abd pain, n/v.No history of trauma or recent surgery is provided. TECHNIQUE: Imaging protocol: Computed tomography of the abdomen and pelvis with contrast. 254image(s) are provided. Radiation optimization: All CT scans at this facility use at least one of these dose optimization techniques: automated exposure control; mA and/or kV adjustment per patient size (includes targeted exams where dose is matched to clinical indication); or iterative reconstruction. Contrast material: OMNI 350; Contrast volume: 100 ml; Contrast route: INTRAVENOUS (IV); Other technique: Axial images are available with sagittal and coronal reconstruction views. Automated dose exposure control is utilized. The DLP is 861.23. REPORTING DATA: Count of CT and Cardiac NM exams in prior 12 months: This patient has received [address] and 0 known cardiac nuclear medicine studies in the 12 months prior to the current study. COMPARISON: CT abdomen pelvis wo con [id number] 11/20/2021 11:38 AM RADIATION DOSE METRICS: Total DLP (mGy-cm): 861.23 FINDINGS: Lungs: No lobar consolidation is appreciated. There is similar subsegmental atelectasis versus post inflammatory reticulonodular scarring demonstrated. Liver: There appears to be some mild hepatic steatosis. Gallbladder and bile ducts: No radiopaque obstructive calculus or biliary ductal dilatation is appreciated. Pancreas: No pancreatic ductal dilatation or calculus is currently appreciated. Spleen: Unremarkable. Adrenal glands: Unremarkable. Kidneys and ureters: There is homogeneous renal parenchymal enhancement with no interval definite radiopaque obstructive calculus or hydronephrosis appreciated. There is early phase contrast excretion limiting luminal detail evaluation. There are some similar fluid dense cystic changes present more so on the left measuring approximately 1.7 x 1.5 cm. Stomach and bowel: Some aspects of the colon are undistended. This may also be peristaltic related.There is some stool present limiting mucosal detail evaluation.The bowel gas pattern appears nonobstructive. There is a small sliding-type hiatal hernia demonstrated with slight gastroesophageal fold thickening. The previously described bowel foci are less conspicuous currently. Appendix: The appendix is not appreciated with some surgical clip related change similar overall. Intraperitoneal space: No free air or free fluid collections are appreciated. Vasculature: No abdominal aortic aneurysmal dilatation or periaortic fluid is appreciated. Lymph nodes: There are subcentimeter predominant para-aortic and mesenteric lymph nodes overall present. Urinary bladder: The bladder is incompletely fluid filled for evaluation which may exagerate the wall thickness. This can also be seen with post inflammation sequela. Reproductive: There appears to be some slight prostate hypertrophy. Bones/joints: Osseous alignment is maintained.No interval displaced fracture or dislocation is appreciated. There are some chronic appearing degenerative disc changes similar overall. There appears to be some nondisplaced spondylolysis at the L5 level similar overall. There is some interval endplate and Schmorl's node degenerative type progression. This contributes to some overall neural foraminal narrowing. There is some sclerosis bone island type appearance for example about the right femur and pelvis similar. There are some similar subchondral cystic appearing changes also present. Soft tissues: No radiopaque foreign body or subcutaneous emphysema is appreciated. Other findings: There is some motion artifact present. No other significant interval changes are appreciated. CT/CT abdomen pelvis w con* [id number] IMPRESSION: 1. The bowel gas pattern appears nonobstructive. No interval fluid collections or acute inflammatory stranding changes are appreciated. 2. There is a small sliding-type hiatal hernia demonstrated with slight gastroesophageal fold thickening.
--- NOTE | 2022-12-19 08:42 | CTR_ITS ---
PROCEDURE INFORMATION: Exam: CTA Head Without And With Contrast, Arteriography Exam date and time: 12/19/2022 10:19 AM Age: 62 years old Clinical indication: Pain; Dizziness and giddiness; Headache; Additional info: Headache, dizzy, intractable n/v post chiropractic appt TECHNIQUE: Imaging protocol: Computed tomographic angiography of the head without and with contrast. Exam focused on the arteries. 3D rendering (Not supervised by radiologist): MIP and/or 3D reconstructed images were created by the technologist. Radiation optimization: All CT scans at this facility use at least one of these dose optimization techniques: automated exposure control; mA and/or kV adjustment per patient size (includes targeted exams where dose is matched to clinical indication); or iterative reconstruction. Contrast material: OMNI 350; Contrast volume: 100 ml; Contrast route: INTRAVENOUS (IV); REPORTING DATA: Count of CT and Cardiac NM exams in prior 12 months: This patient has received [address] and 0 known cardiac nuclear medicine studies in the 12 months prior to the current study. COMPARISON: CT angio headneck* [id number] 11/14/2021 1:48 PM RADIATION DOSE METRICS: Total DLP (mGy-cm): 1120.48 FINDINGS: ANTERIOR CIRCULATION: Right internal carotid artery: Intracranial segment is patent with no significant stenosis or occlusion. No aneurysm. Right middle cerebral artery: No occlusion or significant stenosis. No aneurysm. Right anterior cerebral artery: No occlusion or significant stenosis. No aneurysm. Left internal carotid artery: Intracranial segment is patent with no significant stenosis. No aneurysm. Left middle cerebral artery: No occlusion or significant stenosis. No aneurysm. Left anterior cerebral artery: No occlusion or significant stenosis. No aneurysm. POSTERIOR CIRCULATION: Right vertebral artery: No occlusion or significant stenosis. No aneurysm. Left vertebral artery: No occlusion or significant stenosis. No aneurysm. Basilar artery: No occlusion or significant stenosis. No aneurysm. Right posterior cerebral artery: No occlusion or significant stenosis. No aneurysm. Left posterior cerebral artery: No occlusion or significant stenosis. No aneurysm. HEAD: Brain: No hemorrhage. No mass effect. Stable about 1 cm well-defined hypodensity in the left frontal periventricular white matter suggestive of a chronic infarction. Cerebral ventricles: Normal. No ventriculomegaly. Bones/joints: Unremarkable. No acute fracture. Paranasal sinuses: Visualized sinuses are normal. No fluid levels. Mastoid air cells: Visualized mastoids are normal. No mastoid effusion. Soft tissues: Unremarkable. PROCEDURE INFORMATION: Exam: CTA Neck With Contrast Exam date and time: 12/19/2022 10:19 AM Age: 62 years old Clinical indication: Pain; Dizziness and giddiness; Headache; Additional info: Headache, dizzy, intractable n/v post chiropractic appt TECHNIQUE: Imaging protocol: Computed tomographic angiography of the neck with contrast. 3D rendering (Not supervised by radiologist): MIP and/or 3D reconstructed images were created by the technologist. Radiation optimization: All CT scans at this facility use at least one of these dose optimization techniques: automated exposure control; mA and/or kV adjustment per patient size (includes targeted exams where dose is matched to clinical indication); or iterative reconstruction. Contrast material: OMNI 350; Contrast volume: 100 ml; Contrast route: INTRAVENOUS (IV); REPORTING DATA: Count of CT and Cardiac NM exams in prior 12 months: This patient has received [address] and 0 known cardiac nuclear medicine studies in the 12 months prior to the current study. COMPARISON: CT angio headneck* [id number] 11/14/2021 1:48 PM RADIATION DOSE METRICS: Total DLP (mGy-cm): 1120.48 FINDINGS: Right common carotid artery: No significant stenosis. No dissection or occlusion. Right internal carotid artery: Extracranial segment is patent with no significant stenosis. No dissection or occlusion. Right external carotid artery: No occlusion or significant stenosis. Left common carotid artery: No significant stenosis. No dissection or occlusion. Left internal carotid artery: Extracranial segment is patent with no significant stenosis. No dissection or occlusion. Left external carotid artery: No occlusion or significant stenosis. Right vertebral artery: No significant stenosis. No dissection or occlusion. Left vertebral artery: No significant stenosis. No dissection or occlusion. Left subclavian artery: Stable noncalcified plaque at the origin causing no significant stenosis. Soft tissues: No significant soft tissue swelling. Bones/joints: No acute fracture. CT/CT angio headneck* [id number] IMPRESSION: No large vessel stenosis or occlusion. No CT evidence of acute intracranial hemorrhage, mass or acute infarction. [place] Stroke Program Early CT Score (ASPECTS) = 10 IMPRESSION: No carotid stenosis. No occlusion or stenosis of vertebral arteries. REFERENCES: NASCET CRITERIA. The degree of stenosis in the cervical segment of the internal carotid artery is based on NASCET criteria. Normal is no stenosis. Mild is less than 50% stenosis. Moderate is 50-69% stenosis. Severe is 70% to 99% stenosis. Total occlusion is no detectable patent lumen.
[2022-12-19] MEDS: morphine 4 mg/mL SDV 1 mL IVP (09:02)
[2022-12-19] MEDS: ondansetron 2 mg/ML SDV 2 mL 4 MG IVP (09:02)
[2022-12-19] MEDS: lactated ringers 1,000 ML 999 ML IV (09:03)
[2022-12-19 09:28] LABS: Basophils % 0.3 %; Eosinophils # 0.1 10^3/uL (0.0-0.8); Eosinophils % 1.3 %; Hematocrit 38.9 % (42.0-52.0); Hemoglobin 13.9 g/dL (11.7-16.6); Lymphocytes # 1.4 10^3/uL (0.8-4.8); Lymphocytes % 18.5 %; Mean Corpuscular HGB Conc 35.7 g/dL (30.0-36.0); Mean Corpuscular Hemoglobin 34.4 pg (28.0-34.0); Mean Corpuscular Volume 96.3 fl (80-94); Mean Platelet Volume 10.1 fL (7.4-10.4); Monocytes # 0.5 10^3/uL (0.2-0.9); Monocytes % 6.4 %; Neutrophils # 5.62 10^3/uL (1.8-7.7); Nucleated Red Blood Cells % 0 %; Platelet Count 277 10^3/cmm (130-400); Red Blood Count 4.04 10^6/uL (4.1-5.3); Red Cell Distribution Width 12.4 % (12.1-15.1); White Blood Count 7.7 10^3/uL (4.0-10.0)
[2022-12-19 09:38] LABS: Lactic Sepsis W/Reflex 1.6 mmol/L (0.5-2.2)
[2022-12-19 10:00] LABS: Alanine Aminotransferase 24 U/L (0-41); Albumin Level 4.3 g/dL (3.5-5.2); Alkaline Phosphatase 78 U/L (40-130); Anion Gap 17.3 (5-19); Aspartate Amino Transferase 19 U/L (0-40); Blood Urea Nitrogen 33 mg/dL (8-23); Calcium 9.6 mg/dL (8.5-10.5); Carbon Dioxide 23 mmol/L (22-29); Chloride 98 mmol/L (98-107); Glomerular Filtration Rate 51.4 mL/min (90-130); Glucose 330 mg/dL (65-115); Lipase 51 U/L (13-60); Osmolality Calculated 298 mOsm/kg (285-295); Potassium 4.3 mmol/L (3.5-5.1); Sodium 134 mmol/L (136-145); Total Bilirubin 0.6 mg/dL (0.15-1.2); Total Protein 9.3 g/dL (6.6-8.7)
[2022-12-19 10:09] LABS: Creatinine Clr Calc Pharmacy 60.9044
[2022-12-19] MEDS: iohexol 350 mg/mL 500 mL Btl (per mL) IV (10:34)
--- NOTE | 2022-12-19 10:39 | PC.PHAR ---
pt states he takes care of his own medications-pt states he uses novolog flexpen 4 units tid va med list has 18 units tid-va med list has lantus solostar 15 units hs pt states he uses 18 unit hs-va med list has glipizide 20mg bid pt states he takes 10mg bid-pt states he takes metoprolol succ er 50mg daily va med list has 75mg daily-notes are made in the pharmacy comments
[2022-12-19] MEDS: meclizine 25 mg tablet PO (11:32)
[2022-12-19] MEDS: metoclopramide 5 mg/mL SDV 2 mL 10 MG IVP (12:02)
[2022-12-19] MEDS: pantoprazole 40 mg SDV 80 MG IVP (12:02)
[2022-12-19 12:41] LABS: Glucose Point of Care 269 mg/dL (70-110)
== END 2022-12-19 13:29 | disposition home or self-care (01) ==
PROVIDERS: Emergency Provider Emergency Medicine; PCP Family Medicine
DX: E86.0 Dehydration (principal); R51.9 Headache, unspecified; R42 Dizziness and giddiness; R10.9 Unspecified abdominal pain; R11.2 Nausea with vomiting, unspecified; E78.5 Hyperlipidemia, unspecified; I10 Essential (primary) hypertension; R06.02 Shortness of breath; M51.16 Intervertebral disc disorders with radiculopathy, lumbar region; I63.9 Cerebral infarction, unspecified; E11.69 Type 2 diabetes mellitus with other specified complication; Z79.4 Long term (current) use of insulin; M24.571 Contracture, right ankle; M77.41 Metatarsalgia, right foot; M21.41 Flat foot [pes planus] (acquired), right foot; M21.42 Flat foot [pes planus] (acquired), left foot; E11.42 Type 2 diabetes mellitus with diabetic polyneuropathy
CPT/HCPCS: 36415; 36416; 70496; 70498; 71045; 74177; 80053; 82962; 83605; 83690; 85025; 87040; 93005; 96374; 96375; 99213; 99214; 99285; C9113; J2270; J2405; J2765; J7120; J8597; Q9967

== ENCOUNTER → 2023-01-16 07:11 | Outpatient (BNVA) | payer OTHER, SELFPAY | PROVIDERS: PCP Family Medicine; Visit Provider Podiatrist Foot & Ankle Surgery | DX: M24.571 Contracture, right ankle (principal); M77.41 Metatarsalgia, right foot; E11.42 Type 2 diabetes mellitus with diabetic polyneuropathy; M21.41 Flat foot [pes planus] (acquired), right foot; M21.42 Flat foot [pes planus] (acquired), left foot; Z79.4 Long term (current) use of insulin | CPT/HCPCS: 99213 ==

== ENCOUNTER → 2023-02-14 13:59 | Outpatient (BNVA) | payer OTHER, SELFPAY | PROVIDERS: PCP Family Medicine; Visit Provider Podiatrist Foot & Ankle Surgery | DX: M24.571 Contracture, right ankle (principal); M77.41 Metatarsalgia, right foot; E11.42 Type 2 diabetes mellitus with diabetic polyneuropathy; L97.512 Non-pressure chronic ulcer of other part of right foot with fat layer exposed; E11.621 Type 2 diabetes mellitus with foot ulcer; Z79.4 Long term (current) use of insulin | CPT/HCPCS: 99213 ==

== ENCOUNTER → 2023-02-25 12:51 | Outpatient (BNVA) | payer OTHER, SELFPAY | PROVIDERS: PCP Family Medicine; Visit Provider Podiatrist Foot & Ankle Surgery | DX: L97.512 Non-pressure chronic ulcer of other part of right foot with fat layer exposed (principal); E11.42 Type 2 diabetes mellitus with diabetic polyneuropathy; M24.571 Contracture, right ankle; M77.41 Metatarsalgia, right foot; E11.621 Type 2 diabetes mellitus with foot ulcer; Z79.4 Long term (current) use of insulin | CPT/HCPCS: 87070; 87075; 87077; 87186; 87205; 99213 ==

== ENCOUNTER → 2023-03-13 14:10 | Outpatient (BNVA) | payer OTHER, SELFPAY | PROVIDERS: PCP Family Medicine; Visit Provider Podiatrist Foot & Ankle Surgery | DX: M24.571 Contracture, right ankle; M77.41 Metatarsalgia, right foot; E11.42 Type 2 diabetes mellitus with diabetic polyneuropathy; E11.621 Type 2 diabetes mellitus with foot ulcer; L97.512 Non-pressure chronic ulcer of other part of right foot with fat layer exposed; S90.01XA Contusion of right ankle, initial encounter; W22.8XXA Striking against or struck by other objects, initial encounter; Z79.4 Long term (current) use of insulin | CPT/HCPCS: 73610; 99214 ==

== ENCOUNTER 2023-03-22 05:41 | Day surgery (SDC) | payer OTHER, SELFPAY ==
[2023-03-22] VITALS (8 sets, daily range): BP systolic 146–162; BP diastolic 74–100; PULSE 74–77; RESP 16–17; TEMP 36.1–36.5; O2SAT 92–99; BMI 31.7
[2023-03-22] MEDS: sodium chloride 0.9% 1,000 ML 30 ML IV (06:17)
[2023-03-22 06:26] LABS: Glucose Point of Care 98 mg/dL (70-110)
--- NOTE | 2023-03-22 06:34 | P.OP_ITS ---
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 CPT code 84980 Right Achilles tendon lengthening. CPT code 77728 Osteotomy right fourth metatarsal. CPT code 93967 Wound bed preparation, right foot. CPT code 43389 Application of negative pressure wound therapy, right lower extremity. CPT code 22587 Implants: 4-0 nylon 4-0 Monocryl Specimens removed/disposition: None Pathology: None Surgeon: Boo Charlton DPM It Security Manager: Rodo ARORA Estimated blood loss: 5 36 IV fluids: 0 Urine output: 0 Complications: None Findings: * Tightness in the right Achilles tendon. * Presence of a right plantar forefoot ulcer measuring 0.5 cm x 0.4 cm x 0.2 cm * No unexpected findings during the procedure. Brief History: I reviewed at length with the patient, the risks, potential complications, benefits, alternatives, expectations, and typical outcomes associated with the surgery. The risks and potential complications were explained in detail, including but not limited to infection, wound dehiscence or soft tissue complications, bleeding and hematoma, chronic edema, neuritis or nerve damage producing numbness or chronic pain, CRPS, failure to relieve pain or worsening pain, thick / painful / unsightly scar, limited motion / stiffness, malposition, delayed union, malunion, or nonunion, fracture, reaction to implants, anesthetic complications, venous thromboembolism, and deformity recurrence.? I discussed the notion of no regrets with the patient as it pertains to complications and outcomes. The patient seemed to understand the nature of the proposed care and required convalescence. They asked appropriate questions, answered to their satisfaction. They are aware no guarantees can be made as to a satisfactory outcome and they understand there may be other possible unforeseen complications or outcomes not listed here that will be treated accordingly if they arise. There were no written or implied guarantees given to the patient. They gave informed consent to proceed. Procedure: Under mild sedation the patient was brought to the operating room and remained on the gurney in supine position. A timeout was performed. Anesthesia was then administered by the anesthesia service. Local anesthesia was injected by myself consisting of the following 20 cc of 1% lidocaine with epinephrine at the right calf donor site subcutaneously in a grid like fashion. Additional 10 cc of 1% lidocaine plain in a V-block plantar fashion to the right leg planned Achilles lengthening site and 5 cc of 1% lidocaine plain at a right fourth ray block. Well-padded pneumatic tourniquet was applied to the right high thigh. Right lower extremity was scrubbed, prepped and draped utilizing normal aseptic technique and the right lower extremity was then elevated and the thigh tourniquet inflated to 250 mmHg. Attention was directed to the right Achilles tendon. Ankle joint dorsiflexion was near neutral intraoperatively when loading the right foot in dorsiflexion. The right Achilles tendon was palpated, a Kristy style triple hemisection of the right Achilles tendon with 2 medial and 1 lateral was performed percutaneously with a #15 blade. The tendon was carefully hemisected at 3 separate levels approximately 1.5 cm proximal to its insertion and each level 1.5 cm more proximal to the previous to obtain lengthening of the right Achilles tendon which was appreciated intraoperatively able to dorsiflex at approximately 8 degrees beyond neutral and Achilles tendon remaining intact. All 3 incisions were irrigated and closed with 4-0 nylon and covered with an OpSite. Attention was then directed to the dorsum of the right foot where a dorsal incision directly over the distal diaphyseal portion of the right fourth metatarsal was performed through skin and full-thickness down to bone, double Hohmann was utilized to protect adjacent soft tissue as incision was minimal and a sagittal saw was utilized to perform a beveled cut of the fourth metatarsal from dorsal proximal to plantar distal, through and through osteotomy was performed of the right fourth metatarsal with a sagittal saw and the fourth metatarsal head was visualized and noted to be in a more superior position effectively offloading the corresponding wound Sub fourth metatarsal head of the right foot. The incision was irrigated with copious amounts of Staticin solution and closed with 4-0 nylon. Attention was then directed to the right plantar forefoot where a grade 2 wound exposed to fat layer was appreciated measured 5 mm x 4 mm x 2 mm. There is a hyperkeratotic rim and macerated tissue. Brown pickups and a 15 blade was utilized to surgically prepare the wound for donor graft, this was performed sharply and excisionally in nature of devitalized tissue and bleeding base. Devitalized tissue was passed from operative field and the wound bed was irrigated with copious months of sterile saline solution. Postdebridement wound measurement was9 mm x 8 mm x 2 mm. A dermatome was utilized to harvest a split-thickness skin graft at the anterior medial right calf, 1 inch blade and a skin graft of 1 cm x 2 cm was harvested, the graft was meshed utilizing a mesher and applied to the right plantar forefoot, split thickness skin graft was secured with 4-0 Monocryl at skin margin with excellent contact and coverage. Additional skin graft that was redundant was sharply trimmed at the margin with iris scissors and pickups. Donor site was dressed with topical thrombin, cleansed followed by bacitracin and bulky superabsorbent dressing under OpSite. The right plantar wound with accompanying split thickness skin graft was then dressed with Adaptic and a 7-day wound VAC set at 75 mm constant pressure with excellent seal. Surgical sites were dressed with Adaptic, sterile 4 x 4's, Kerlix and Duong wrap followed by application of multilayer compressive posterior splint with ankle in 90 degrees utilizing 4 inch Ortho-Glass. Tourniquet was deflated and a prompt hyperemic response was noted to the distal digits of the right foot. Patient tolerated the procedure and anesthesia well and was transferred to the PACU with vital signs stable and vascular status intact. Following a period of postoperative monitoring he will be discharged home. He is to remain strict nonweightbearing to the right lower extremity and elevate right foot while resting. He was given at home care instructions and scheduled follow-up. Patient was transferred to the PACU with vital signs stable and vascular status intact. Following a period of postoperative mo nitoring he will be discharged home.
--- NOTE | 2023-03-22 06:34 | P.HPUD_ITS ---
Surgery/Procedure H&P Update DATE OF PROCEDURE: March 22, 2023 DATE H&P PERFORMED: 03/13/23 H&P UPDATE INFORMATION: I have reviewed H&P completed within last 30 days, I have examined patient prior to procedure, No changes to prior documentation and H&P is in [facility] [place] EMR on date indicated PREOP DIAGNOSIS: Diabetic ulcer right foot PLANNED PROCEDURE: Operation Date: 03/22/23 07:00 Proposed Procedures p :?Split thickness skin graft right lower [id number],L97.512,E11.42,M24.571,M77.41(Right) - Boo Charlton DPM s Right Achilles tendon lengthening(Right) - YOVANI Robertson Osteotomy right fourth metatarsal(Right) - Boo Charlton DPM
--- NOTE | 2023-03-22 06:46 | ANES.PREANE2 ---
Pre-Anesthetic Assessment Height/Weight: Height 1.75 m Weight 97.522 kg Temp Pulse Resp BP Pulse Ox O2 Del Method 97.7 F 77 17 162/100 99 Room Air 03/22/23 05:59 03/22/23 05:59 03/22/23 05:59 03/22/23 05:59 03/22/23 05:59 03/22/23 06:02 Preop Diagnosis: Diabetic ulcer right foot Operation Date: 03/22/23 07:00 Proposed Procedures p :?Split thickness skin graft right lower [id number],L97.512,E11.42,M24.571,M77.41(Right) - YOVANI Robertson Right Achilles tendon lengthening(Right) - YOVANI Robertson Osteotomy right fourth metatarsal(Right) - Boo Charlton DPM Familial anesthetic complications: none Was Beta Bobby taken within 24 hours: Yes Was Clonidine taken within 24 hours: N/A Last intake: Intake Last Liquid Date 03/21/23 Last Liquid Time 17:00 Last Solid Date 03/21/23 Last Solid Time 17:00 Social No alcohol and No tobacco Exam alert, oriented x 3, clear to auscultation bilaterally and regular rate & rhythm Airway Submandibular: within normal limits Cervical ROM: within normal limits Mallampati: Class II Dentition: chipped Pulmonary Sleep Apnea CV/HEM Anemia and Hypertension Metabolic Diabetes Mellitus and Morbid Obesity [facility] [place] Lower Back Pain and Osteoarthritis/DJD Neuropsych Cerebrovascular Accident and Neuropathy Anesthetic Plan ASA status: 3 Anesthesia: General Medications/Allergies Home Medications Medication Instructions Recorded Confirmed Last Taken Type cholecalciferol (vitamin D3) 25 50 mcg PO QAM 12/02/19 03/21/23 03/21/23 History mcg (1,000 unit) tablet magnesium oxide See Rx Instructions .Route .COMPLEX 12/02/19 03/21/23 03/21/23 History polyethylene glycol 3350 17 gram 17 g PO DAILY PRN Constipation 12/02/19 03/21/23 12/02/19 History oral powder packet (Miralax) Diabetic Shoes with 3 sets of #1 ea 05/10/20 03/13/23 Unknown Rx inserts nitroglycerin 0.4 mg sublingual 0.4 mg sublingual Q5M PRN chest 10/21/20 03/21/23 Unknown Rx tablet pain #25 tabs aspirin 81 mg tablet,delayed 81 mg PO QAM 30 days #30 tabs 03/03/21 03/22/23 03/21/23 Rx release (Molina Low Dose Aspirin) blood pressure monitor (Blood #1 ea 03/03/21 03/13/23 Unknown Rx Pressure Kit) pregabalin 150 mg capsule 150 mg PO DAILY radicular pain 09/06/21 03/21/23 03/20/23 Rx #30 caps tramadol 50 mg tablet 50 mg PO BID PRN pain 30 days #60 09/06/21 03/21/23 03/20/23 Rx tabs atorvastatin 40 mg tablet (Lipitor) 80 mg PO BEDTIME 11/14/21 03/21/23 03/21/23 History lisinopril 10 mg tablet 5 mg PO QAM 11/20/21 03/21/23 03/21/23 History tizanidine 4 mg tablet 4 mg PO Q12H PRN Muscle Spasm 11/20/21 03/21/23 Unknown History vitamin B complex-vitamin C-folic 1 tab PO DAILY 11/20/21 03/21/23 03/21/23 History acid 1 mg tablet carbon fiber [place] bilaterally- #1 ea 02/26/22 03/13/23 Unknown Rx AFO Custom Molded Accomodative #1 ea 05/11/22 03/13/23 Unknown Rx Orthotics and Diabetic Shoes insulin glargine 100 unit/mL (3 18 unit SUBCUT BEDTIME 06/20/22 03/21/23 03/20/23 History mL) subcutaneous pen (Lantus Solostar U-100 Insulin) AFO to right #1 ea 07/18/22 03/13/23 Unknown Rx acetaminophen 500 mg tablet 1,500 mg PO QAM 12/19/22 03/22/23 03/22/23 04:00 History amlodipine 10 mg tablet 10 mg PO QAM 12/19/22 03/22/23 03/21/23 08:00 History carboxymethylcellulose sodium 0.5 2 drp ophthalmic (eye) TID PRN 12/19/22 03/21/23 03/20/23 History % eye drops redness clopidogrel 75 mg tablet 75 mg PO QAM 12/19/22 03/21/23 03/20/23 History docusate sodium 100 mg capsule 200 mg PO BID 12/19/22 03/21/23 03/20/23 History (Colace) ferrous sulfate 325 mg (65 mg 325 mg PO QAM 12/19/22 03/21/23 03/21/23 History iron) tablet (iron) glipizide 10 mg tablet 10 mg PO BID 12/19/22 03/21/23 03/21/23 History glucose 4 gram chewable tablet 4 g PO Q15M PRN for low blood sugar 12/19/22 03/21/23 Unknown History insulin aspart U-100 100 unit/mL 4 unit SUBCUT TID 12/19/22 03/21/23 03/18/23 History (3 mL) subcutaneous pen lidocaine 5 % topical patch 1 patch topical DAILY PRN Pain 12/19/22 03/21/23 Unknown History metoclopramide HCl 10 mg tablet 10 mg PO Q6H PRN nausea and 12/19/22 03/21/23 Unknown Rx (Reglan) vomiting #20 tabs metoprolol succinate 50 mg 50 mg PO DAILY 12/19/22 03/21/23 03/20/23 History tablet,extended release 24 hr omega-3 fatty acids 1,000 mg 2,000 mg PO BID 12/19/22 03/21/23 03/20/23 History capsule oxycodone 5 mg tablet 5 mg PO Q4H PRN pain #10 tabs 12/19/22 03/21/23 Unknown Rx semaglutide 1 mg/dose (2 mg/1.5 1 mg SUBCUT Q7D 12/19/22 03/21/23 03/17/23 History mL) subcutaneous pen injector sildenafil 100 mg tablet 100 mg PO .EVERY 5 DAYS PRN 12/19/22 03/21/23 Unknown History Erectile Dysfunction tadalafil 20 mg tablet 20 mg PO DAILY PRN Erectile 12/19/22 03/21/23 Unknown History Dysfunction collagenase clostridium histo. 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
[2023-03-22] MEDS: ceFAZolin 2,000 MG in sodium chloride 0.9% (plus) 50 ML 100 MG IV (07:04)
[2023-03-22] MEDS: lidocaine 2% INJ 20 mL INJECTION (07:25)
[2023-03-22] MEDS: lidocaine-epi 2% 20 mL INJ INJECTION (07:25)
[2023-03-22] MEDS: thrombin 5,000 unit SDV 5000 UNIT XX (07:49)
[2023-03-22] MEDS: mineral oil light VIAL 10 mL 30 ML TOPICAL (07:53)
--- NOTE | 2023-03-22 08:24 | W.PM.BPON ---
Date of Procedure: 03/22/23 Surgeon: Boo Charlton DPM Slot Tag Inserter(s): Rodo ARORA Procedure(s) performed: Achilles lengthening, fourth metatarsal osteotomy and split thickness skin graft all right lower extremity Findings of the procedure(s): None Estimated blood loss: 5 Specimen(s) removed: None Post-operative diagnosis: Right Achilles contracture, nonpressure chronic ulceration right forefoot exposed to fat layer
[2023-03-22] MEDS: oxyCODONE 5 mg IR Tab/Cap PO (09:47)
--- NOTE | 2023-03-22 12:47 | ANE.PACU2 ---
Inpatient post-anesthesia follow up: Airway intact: Yes Vital signs: Temperature 97.7 F Pulse Rate 76 Respiratory Rate 17 Blood Pressure 153/74 Pulse Oximetry 96 Oxygen Delivery Me thod Room Air Oxygen Flow Rate 3 Fraction of Inspir ed Oxygen Hydration adequate: Yes Nausea and vomiting: No Pain level: 1 Mental status: Baseline
== END 2023-03-22 09:49 | disposition home or self-care (01) ==
PROVIDERS: PCP Family Medicine; Visit Provider Podiatrist Foot & Ankle Surgery
PROC: (CPT 15002; principal; 2023-03-22 07:00)
PROC: (CPT 28261; 2023-03-22 07:00)
PROC: (CPT 15002; 2023-03-22 07:00)
DX: L97.512 Non-pressure chronic ulcer of other part of right foot with fat layer exposed (principal); M77.41 Metatarsalgia, right foot; E11.42 Type 2 diabetes mellitus with diabetic polyneuropathy; E11.621 Type 2 diabetes mellitus with foot ulcer; G47.30 Sleep apnea, unspecified; I10 Essential (primary) hypertension; E66.01 Morbid (severe) obesity due to excess calories; Z68.31 Body mass index [BMI] 31.0-31.9, adult; Z86.73 Personal history of transient ischemic attack (TIA), and cerebral infarction without residual deficits; Z79.82 Long term (current) use of aspirin; Z79.4 Long term (current) use of insulin; E78.5 Hyperlipidemia, unspecified; Z79.891 Long term (current) use of opiate analgesic
CPT/HCPCS: 15002; 15100; 27685; 28308; 36416; 82962; J0330; J0690; J2405; J2704; J3010; J7030

== ENCOUNTER → 2023-03-28 07:21 | Outpatient (BNVA) | payer OTHER, SELFPAY | PROVIDERS: PCP Family Medicine; Visit Provider Podiatrist Foot & Ankle Surgery | DX: E11.621 Type 2 diabetes mellitus with foot ulcer (principal); L97.512 Non-pressure chronic ulcer of other part of right foot with fat layer exposed; M24.571 Contracture, right ankle; M77.41 Metatarsalgia, right foot; E11.42 Type 2 diabetes mellitus with diabetic polyneuropathy; S90.01XA Contusion of right ankle, initial encounter; X58.XXXA Exposure to other specified factors, initial encounter; Z79.4 Long term (current) use of insulin | CPT/HCPCS: 99024 ==

== ENCOUNTER → 2023-04-03 06:51 | Outpatient (BNVA) | payer OTHER, SELFPAY | PROVIDERS: PCP Family Medicine; Visit Provider Podiatrist Foot & Ankle Surgery | DX: M24.571 Contracture, right ankle (principal); M77.41 Metatarsalgia, right foot; E11.42 Type 2 diabetes mellitus with diabetic polyneuropathy; L97.512 Non-pressure chronic ulcer of other part of right foot with fat layer exposed; E11.621 Type 2 diabetes mellitus with foot ulcer; S90.01XD Contusion of right ankle, subsequent encounter; X58.XXXD Exposure to other specified factors, subsequent encounter | CPT/HCPCS: 99024 ==

== ENCOUNTER → 2023-04-17 13:38 | Outpatient (BNVA) | payer OTHER, SELFPAY | PROVIDERS: PCP Family Medicine; Visit Provider Podiatrist Foot & Ankle Surgery | DX: M24.571 Contracture, right ankle (principal); M77.41 Metatarsalgia, right foot; E11.42 Type 2 diabetes mellitus with diabetic polyneuropathy; L97.512 Non-pressure chronic ulcer of other part of right foot with fat layer exposed; S90.01XA Contusion of right ankle, initial encounter; E11.621 Type 2 diabetes mellitus with foot ulcer; Z79.4 Long term (current) use of insulin; X58.XXXA Exposure to other specified factors, initial encounter | CPT/HCPCS: 99213 ==

== ENCOUNTER 2023-04-25 09:05 | Inpatient (IN) | payer OTHER, SELFPAY ==
[2023-04-25] VITALS (41 sets, daily range): BP systolic 111–166; BP diastolic 55–105; PULSE 85–153; RESP 16–28; TEMP 37.2–39.2; O2SAT 89–97; BMI 31.7; BMI 32.2
--- NOTE | 2023-04-25 09:14 | ECG_ITS ---
[facility] Test Date: 2023-04-25 Pat Name: Wayne Aguilar Department: Room: Gender: Male Counter Former: : 1960 Requested By: Spencer Khan Order Number: [id number] Bhumi MD: Anastasiia Garcia M.D. Measurements Intervals [place] Rate: 138 P: 0 SC: 0 QRS: -14 QRSD: 99 T: 73 QT: 271 QTc: 412 Interpretive Statements ATRIAL FIBRILLATION WITH RAPID VENTRICULAR RESPONSE ABNORMAL RHYTHM ECG Compared to ECG 12/19/2022 08:50:31 Sinus tachycardia no longer present Left anterior fascicular block no longer present Electronically Signed On 04-25-2023 21:17:51 GEAR MACHINIST by Anastasiia Garcia M.D. [id number]
[2023-04-25 09:23] LABS: Basophils % 0.1 %; Eosinophils % 0.2 %; Hematocrit 26.4 % (37-53); Lymphocytes # 0.3 10^3/uL (0.8-4.8); Lymphocytes % 4.1 %; Mean Corpuscular HGB Conc 34.1 g/dL (30-55); Mean Corpuscular Hemoglobin 32.6 pg (27-33); Mean Corpuscular Volume 95.7 fl (82-101); Mean Platelet Volume 10.9 fL (7.4-10.4); Monocytes # 0.4 10^3/uL (0.2-0.9); Monocytes % 5.5 %; Neutrophils # 7.13 10^3/uL (1.8-7.7); Neutrophils % 88.7 %; Nucleated Red Blood Cells % 0 %; Platelet Count 158 10^3/cmm (157-399); Red Blood Count 2.76 10^6/uL (3.85-5.65); White Blood Count 8.04 10^3/uL (3.29-11.43)
--- NOTE | 2023-04-25 09:31 | PC.PHAR ---
Addendum entered by Niurka Tang 04/25/23 10:14: [facility] AT 10:10 AM Original Note: [facility] at 9:30 am
--- NOTE | 2023-04-25 09:33 | ED_ITS ---
HPI - Weakness 2 General: Chief complaint: Weakness Stated complaint: Fall, Weakness Time Seen by Provider: 04/25/23 09:08 Source: patient and family Mode of arrival: EMS History of Present Illness: 62-year-old [facility] with complaints of generalized weakness. He recently had surgery with Dr. Charlton had a foot work done. He has had several falls since then he has some swelling in his right elbow and his right hand has not had any fever sweats chills no shortness of breath he has noticed rapid heart rate and palpitations. Reviewing his chart he has no history of atrial fibrillation he is not on any anticoagulants. On arrival here he is in A-fib with rapid ventricular sponsor heart rate in them 140s. No chest pain mildly short of breath states he has been very weak with any activity recently. Patient has a right foot ulcer that he recently has been seeing Dr. Charlton for has not had any drainage or change in that. MD Complaint: generalized weakness Onset (ago): day(s) Duration: constant Location: generalized Relieving factors: none Exacerbating factors: none Associated symptoms: Denies chest pain, chills, confusion, melena, decreased appetite, diaphoresis, dysuria, easy bruising, fever(s), headache(s), myalgias, nausea, rash, short of breath, syncope or vomiting Review of Systems 2 Const: Denies: fever(s), chills or diaphoresis Card: Denies: chest pain or syncope Resp: Denies: dyspnea GI: Denies: abdominal pain, nausea, vomiting or melena : Denies: dysuria, urinary frequency or urinary urgency Musc: Denies: neck pain or back pain Skin/Breast: Denies: rash Neuro: Denies: headache(s) or confusion Tono/Lymph: Denies: easy bruising PFSH ED 2 PFSH: Medical History Lumbar disc disease with radiculopathy 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 Pain management contract signed 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 Degenerative lumbar disc Hyperlipidemia Hypertension Diabetes mellitus Surgical History Hx of appendectomy Hx of foot surgery Hx of cholecystectomy Family History Denies family history of Anesthesia complication Social History Smoking and tobacco/nicotine status: never used tobacco/nicotine Alcohol intake: never Substance/Drug Use: never Caregiver/support person: Yes Lives independently: Yes Physical Exam 2 Const: GENERAL APPEARANCE: cooperative and comfortable O RIENTATION/CONSCIOUSNESS: Yes awake, Yes oriented to person, Yes oriented to place and Yes oriented to time HENMT: COMMON NORMALS: normocephalic, atraumatic and hearing grossly normal bilaterally HEAD & SCALP: normocephalic and atraumatic Resp: COMMON NORMALS: normal respiratory effort, No retractions, No use of accessory muscles and clear to auscultation bilaterally AUSCULTATION: clear to auscultation bilaterally Cardio: COMMON NORMALS: No murmurs present (Cardio) RATE: tachycardic R HYTHM: abnormal rhythm irregularly irregular GI: COMMON NORMALS: Soft to palpation and No hepatosplenomegaly present A USCULTATION: Yes normoactive bowel sounds PALPATION: Yes Soft to palpation, No Tenderness to palpation present (GI), No Guarding due to palpation present (GI) and Yes No hepatosplenomegaly present Extremity: COMMON NORMALS: normal to inspection, capillary refill normal, no clubbing, cyanosis or edema, no calf tenderness and no pedal edema Neuro: SENSORIUM/ORIENTATION: Yes oriented to person, Yes oriented to place and Yes oriented to time Skin: COMMON NORMALS: no rashes or lesions noted GENERAL SKIN EXAM: no rashes or lesions noted Course 2 Vital Signs: Vital signs: Vital Signs Temperature 102.2 F H 04/25/23 12:21 Pulse Rate 121 H 04/25/23 12:21 Respiratory Rate 20 H 04/25/23 12:21 Blood Pressure 155/74 04/25/23 12:21 Pulse Oximetry 95 04/25/23 12:21 Oxygen Delivery Me thod Nasal Cannula 04/25/23 12:21 Oxygen Flow Rate 2 04/25/23 12:21 MDM - Weakness Medical Decision Making Patient presents with sepsis and acute kidney injury mild encephalopathy. Source of the sepsis appears to be a cellulitis with a puncture wound on the thenar eminence of his hand. Most of the swelling is in the dorsum of the hand. Will admit started on IV antibiotics. Additionally patient has new onset A-fib with RVR is not previously had before is not on any anticoagulation finally his hemoglobin is dropped significantly from his previous hemoglobin. He is down to 9 which may increase his shortness of breath and generalized fatigue will admit to hospitalist consult podiatry recently did the foot surgery and orthopedics. Medical Records I reviewed the patient's medical records. Lab Data I reviewed the patient's lab results. 04/25/23 08:48 04/25/23 08:48 Laboratory Results WBC 8.04 10^3/uL (3.29-11.43) 04/25/23 08:48 RBC 2.76 10^6/uL (3.85-5.65) L 04/25/23 08:48 Hgb 9.00 g/dL (11.27-16.99) L 04/25/23 08:48 Hct 26.4 % (37-53) L 04/25/23 08:48 MCV 95.7 fl (82-101) 04/25/23 08:48 MCH 32.6 pg (27-33) 04/25/23 08:48 MCHC 34.1 g/dL (30-55) 04/25/23 08:48 RDW 13.0 % (12.1-15.1) 04/25/23 08:48 Plt Count 158 10^3/cmm (157-399) 04/25/23 08:48 MPV 10.9 fL (7.4-10.4) H 04/25/23 08:48 Neut % (Auto) 88.7 % 04/25/23 08:48 Lymph % (Auto) 4.1 % 04/25/23 08:48 [place] % (Auto) 5.5 % 04/25/23 08:48 Eos % (Auto) 0.2 % 04/25/23 08:48 Baso % (Auto) 0.1 % 04/25/23 08:48 Neut # (Auto) 7.13 10^3/uL (1.8-7.7) 04/25/23 08:48 Lymph # (Auto) 0.3 10^3/uL (0.8-4.8) L 04/25/23 08:48 [place] # (Auto) 0.4 10^3/uL (0.2-0.9) 04/25/23 08:48 Eos # (Auto) 0.0 10^3/uL (0.0-0.8) 04/25/23 08:48 Baso # (Auto) 0.0 10^3/uL (0.0-0.1) 04/25/23 08:48 Nucleated RBC % (auto) 0 % 04/25/23 08:48 Nucleated RBCs # 0.0 /100WBC 04/25/23 08:48 Sodium 128 mmol/L (136-145) L 04/25/23 08:48 Potassium 3.9 mmol/L (3.5-5.1) 04/25/23 08:48 Chloride 96 mmol/L (98-107) L 04/25/23 08:48 Carbon Dioxide 21 mmol/L (22-29) L 04/25/23 08:48 Anion Gap 14.9 (5-19) 04/25/23 08:48 BUN 49 mg/dL (8-23) H 04/25/23 08:48 Creatinine 2.2 mg/dL (0.7-1.2) H 04/25/23 08:48 GFR Calculation 30.5 mL/min (90-130) L 04/25/23 08:48 Glucose 130 mg/dL (65-115) H 04/25/23 08:48 Calculated Osmolality 281 mOsm/kg (285-295) L 04/25/23 08:48 Lactic Acid 1.7 mmol/L (0.5-2.2) 04/25/23 09:22 Calcium 9.8 mg/dL (8.5-10.5) 04/25/23 08:48 Total Bilirubin 0.9 mg/dL (0.15-1.2) 04/25/23 08:48 AST 25 U/L (0-40) 04/25/23 08:48 ALT 29 U/L (0-41) 04/25/23 08:48 Alkaline Phosphatase 82 U/L (40-130) 04/25/23 08:48 Total Protein 9.0 g/dL (6.6-8.7) H 04/25/23 08:48 Albumin 3.6 g/dL (3.5-5.2) 04/25/23 08:48 Globulin 5.4 g/dL (1.3-4.6) H 04/25/23 08:48 Urine Color Yellow (Yellow) 04/25/23 11:10 Urine Appearance Sl hazy (CLEAR) A 04/25/23 11:10 Urine pH 5 (5-7) 04/25/23 11:10 Ur Specific [place] 1.020 (1.005-1.030) 04/25/23 11:10 Urine Protein 3+ (Negative) H 04/25/23 11:10 Urine Glucose (UA) Norm (Normal) 04/25/23 11:10 Urine Ketones Negative (Negative) 04/25/23 11:10 Urine Blood 3+ (Negative) H 04/25/23 11:10 Urine Nitrate Negative (Negative) 04/25/23 11:10 Urine Bilirubin Neg (Negative) 04/25/23 11:10 Urine Urobilinogen 1 mg/dL (Negative) H 04/25/23 11:10 Ur Leukocyte Esterase Negative (Negative) 04/25/23 11:10 Urine RBC 0-4 /hpf (0-2) H 04/25/23 11:10 Urine WBC None /hpf (0-5) 04/25/23 11:10 Ur Squamous Epith Cells None /hpf (0-5) 04/25/23 11:10 Amorphous Sediment 1+ /hpf 04/25/23 11:10 Urine Bacteria Trace /hpf (NONE) 04/25/23 11:10 Urine Mucus 2+ /hpf 04/25/23 11:10 Serum Ketones Negative (Negative) 04/25/23 08:48 Influenza Type A Ag negative (Negative) 04/25/23 12:47 Influenza Type B Ag negative (Negative) 04/25/23 12:47 All radiology interpretation(s) finalized by discharge Discharge Plan Discharge Patient Disposition: Admitted As Inpatient Clinical Impression: Cellulitis and abscess of hand, Anemia, Sepsis, Atrial fibrillation with rapid ventricular response Diabetes mellitus Qualifiers: Diabetes mellitus type: type 2 Diabetes mellitus intermodal customer service insulin use: with intermodal customer service use Diabetes mellitus complication status: with other specified complication Qualified Code(s): E11.69 - Type 2 diabetes mellitus with other specified complication Condition: Stable Coding Level of Care Code ED Institutional Research Coordinator for Nirmal Uribe
[2023-04-25] MEDS: dilTIAZem 5 mg/mL SDV 5 mL 20 MG IVP (09:53)
--- NOTE | 2023-04-25 09:56 | XR_ITS ---
WS: [id number] Right foot, 3 views, 04/25/2023 Clinical Data: pain/ulcer Comparison: Right foot, 10/11/2022 Findings: There is a transverse fracture of the distal third of the right fourth metatarsal. There is deformity of the distal right fifth metatarsal unchanged. There is subluxation of the right second through fo urth toes. The remainder of the right foot shows no change. There is an Achilles spur and plantar spu r. Impression: 1. Fracture of the distal third of the right fourth metatarsal. 2. Chronic change with erosion of the distal right fifth metatarsal.
[2023-04-25 09:59] LABS: Alanine Aminotransferase 29 U/L (0-41); Albumin Level 3.6 g/dL (3.5-5.2); Alkaline Phosphatase 82 U/L (40-130); Anion Gap 14.9 (5-19); Aspartate Amino Transferase 25 U/L (0-40); Blood Urea Nitrogen 49 mg/dL (8-23); Calcium 9.8 mg/dL (8.5-10.5); Carbon Dioxide 21 mmol/L (22-29); Chloride 96 mmol/L (98-107); Globulin 5.4 g/dL (1.3-4.6); Glomerular Filtration Rate 30.5 mL/min (90-130); Glucose 130 mg/dL (65-115); Osmolality Calculated 281 mOsm/kg (285-295); Potassium 3.9 mmol/L (3.5-5.1); Sodium 128 mmol/L (136-145); Total Bilirubin 0.9 mg/dL (0.15-1.2)
[2023-04-25] MEDS: dilTIAZem 100 MG in sodium chloride 0.9% (add-van) 100 ML IV (10:02)
[2023-04-25 10:16] LABS: Lactic Sepsis W/Reflex 1.7 mmol/L (0.5-2.2)
--- NOTE | 2023-04-25 10:38 | XR_ITS ---
WS: [id number] Left elbow, AP and lateral views, 04/25/2023 Clinical Data: fall, pain Comparison: None. Findings: No fractures or dislocations are seen. The radial head is normal. The soft tissues are unremarkable. There is a small olecranon spur. Impression: Negative left elbow.
--- NOTE | 2023-04-25 10:38 | XR_ITS ---
WS: [id number] Exam: XR hand LT min 3V* [id number] Date/Time of Exam: 04/25/2023 10:38 AM Reason For Exam: fall, pain No acute fracture or dislocation. Degenerative change in the IP and MP joints. There are 2 small meta llic soft tissue foreign body seen in the lateral aspect of the wrist. IMPRESSION1. Minimal degenerative changes. No acute fracture.
[2023-04-25] MEDS: sodium chloride 0.9% 2,925.66 ML 2925.66 ML IV (10:39)
[2023-04-25] MEDS: levofloxacin-dextrose 5 % 750 MG/150 ML PREMIX 100 MG IV (10:39)
[2023-04-25] MEDS: morphine 4 mg/mL SDV 1 mL IVP (10:48)
--- NOTE | 2023-04-25 10:49 | XR_ITS ---
WS: [id number] Right arm and humerus, 3 views, 04/25/2023 Clinical Data: pain in R elbow, shoulder Comparison: None. Findings: No fractures or dislocations are seen. The shaft of the humerus is intact. The soft tissues are norm al. Impression: Negative right arm and humerus.
[2023-04-25 10:50] LABS: Ketone (Acetest) Serum Negative (Negative)
--- NOTE | 2023-04-25 11:39 | PC.PHAR ---
PTS MED ICATIONS VERIFIED [facility]- GLIPIZIDE 10 MG, TIZANIDINE HCL 4 MG, AND LISINOPRIL 5 MG WERE ALL DISC. [facility]
[2023-04-25 12:01] LABS: Add Urine Microscopic? YES; Bilirubin Urine Neg (Negative); Blood Urine 3+ (Negative); Glucose Urine UA Norm (Normal); Ketones Urine Negative (Negative); Leukocyte Esterase Urine Negative (Negative); Nitrate Urine Negative (Negative); Protein Urine 3+ (Negative); Urine Appearance SL Hazy (CLEAR); Urine Color Yellow (Yellow); Urobilinogen Urine 1 mg/dL (Negative); pH Urine 5 (5-7)
[2023-04-25 12:07] LABS: Add Urine Culture? No; Amorphous Sediment Urine 1+ /hpf; Bacteria Urine TRACE /hpf; Mucus Urine 2+ /hpf; RBC Urine 0-4 /hpf (0-2)
[2023-04-25 13:14] LABS: Influenza A by IFA negative (Negative); Influenza B by IFA negative (Negative)
[2023-04-25] MEDS: vancomycin 1,000 MG in sodium chloride 0.9% 250 ML 250 MG IV (13:29)
[2023-04-25 13:30] LABS: Erythrocyte Sedimentation Rate 41 mm/hr (0-10)
[2023-04-25 13:38] LABS: C Reactive Protein 307.6 mg/L (0.0-4.9)
[2023-04-25 14:41] LABS: Adenovirus Not Detected (NOT DETECT); Chlamydia Pneumoniae Not Detected (NOT DETECT); Coronavirus 229E,HKU1,NL63,OC4 Not Detected (NOT DETECT); Human Metapneumovirus Not Detected (NOT DETECT); Human Rhinovirus/Enterovirus Not Detected (NOT DETECT); Influenza A Not Detected (NOT DETECT); Influenza A H1 Not Detected (NOT DETECT); Influenza A H1-2009 Not Detected (NOT DETECT); Influenza A H3 Not Detected (NOT DETECT); Influenza B Not Detected (NOT DETECT); Mycoplasma Pneumoniae Not Detected (NOT DETECT); Parainfluenza Virus Type 1 Not Detected (NOT DETECT); Parainfluenza Virus Type 2 Not Detected (NOT DETECT); Parainfluenza Virus Type 3 Not Detected (NOT DETECT); Parainfluenza Virus Type 4 Not Detected (NOT DETECT); Respiratory Syncytial Virus A Not Detected (NOT DETECT); Respiratory Syncytial Virus B Not Detected (NOT DETECT); SARS-COV-2 Not Detected (NOT DETECT)
--- NOTE | 2023-04-25 14:54 | XR_ITS ---
WS: [id number] Portable AP supine chest, 04/25/2023 Clinical Data: fever Comparison: Portable chest, 12/19/2022 Findings: There is a patchy opacity over the surface of the left diaphragm which could indicate minim al pneumonia or atelectasis. No nodules, masses or effusions are seen. The heart is normal. The pulmo nary vascularity is not increased. No pneumonia or pneumothorax is seen. There are monitor leads on t he chest wall. Impression: Minimal patchy pulmonary opacity over surface of the left diaphragm.
--- NOTE | 2023-04-25 15:35 | PM.HP ---
Providers/Chief Complaint Admitting Physician: Janki Newman MD Primary Care Provider: Pam Diaz MD Chief Complaint: Fall, Weakness History of Present Illness Wayne Aguilar is a 62 year old male with past medical history of A-fib with RVR, noncompliance, hypertension who underwent split-thickness skin grafting of right lower limb along with right Achilles tendon lengthening and osteotomy of right fourth metatarsal on 03/22 with podiatry. As per the patient he has been at his baseline till today morning when he got out of bed and slipped and fell hands forward. After that he was not able to get up was feeling dizzy. Denies losing consciousness or hitting his head. Denies any seizure-like activity, nausea vomiting, headache, dizziness. Does state that he has been eating and drinking less. Also states that he has been urinating less since yesterday. Denies any dysuria. States he has been taking his medications as prescribed. In the ER he was given septic bolus of fluids, started on Cardizem drip for A-fib with RVR. After my examination he received 5 mg of IV metoprolol and his heart rate settled below 100 and Cardizem drip was weaned off. Patient has been having high-grade fever for which she has received IV Tylenol. Review of Systems General: Reports: 10 or more systems reviewed and unremarkable except in HPI and below Const: Denies: fever(s), chills, body aches, change in appetite, change in weight, malaise, night sweats, diaphoresis, change in sleep pattern, daytime sleepiness or snoring Eyes: Denies: change in vision, blurry vision, photophobia, eye discomfort or eye discharge ENMT: Denies: throat pain, enlarged tonsils, hoarseness, mouth pain, oral sores, dry mouth, tinnitus, nasal congestion or post nasal drip Card: Denies: chest pain, palpitations, irregular heart rhythm, edema, swelling of feet/ankles, lightheadedness, syncope, pre-syncope, dyspnea on exertion, orthopnea, leg pain with exertion or acrocyanosis Resp: Denies: dyspnea, productive cough, non-productive cough, wheezing, stridor, pain on inspiration, change in phlegm color, hemoptysis or chest congestion GI: Denies: abdominal pain, nausea, vomiting, hematemesis, coffee ground emesis, dysphagia, heartburn, diarrhea, constipation, bloating, GI cramping, change in bowel habits, pain on defecation, hematochezia or melena : Denies: flank pain, difficulty urinating, dysuria, urinary frequency, urinary urgency, urinary hesitancy, urinary dribbling, difficulty starting urination, change in urine stream, nocturia or hematuria Musc: Denies: neck pain, back pain, extremity pain, joint pain, joint swelling, joint redness, joint stiffness or limited range of motion Neuro: Denies: headache(s), numbness in extremities, weakness in extremities, sensory changes, lack of coordination, difficulty walking, frequent falls, dizziness, vertigo, confusion, Slurred speech present, difficulty communicating thoughts or seizure-like activity Psych: Denies: anxiety, depression, mood swings, panic attacks, hopelessness or irritability Endo: Denies: polyuria, polydipsia, tired all the time, cold intolerance, excessive sweating, flushing or heat intolerance Tono/Lymph: Denies: easy bruising or easy bleeding All/Imm: Denies: tongue swelling, facial swelling or acute wheezing Medications/Allergies Home Medications Medication Instructions Recorded Confirmed Last Taken Type cholecalciferol (vitamin D3) 25 50 mcg PO QAM 12/02/19 04/25/23 03/21/23 History mcg (1,000 unit) tablet polyethylene glycol 3350 17 gram 17 g PO DAILY 12/02/19 04/25/23 12/02/19 History oral powder packet (Miralax) Diabetic Shoes with 3 sets of #1 ea 05/10/20 04/25/23 Unknown Rx inserts nitroglycerin 0.4 mg sublingual 0.4 mg sublingual Q5M PRN chest 10/21/20 04/25/23 Unknown Rx tablet pain #25 tabs aspirin 81 mg tablet,delayed 81 mg PO QAM 30 days #30 tabs 03/03/21 04/25/23 03/21/23 Rx release ([place] Low Dose Aspirin) blood pressure monitor (Blood #1 ea 03/03/21 04/25/23 Unknown Rx Pressure Kit) atorvastatin 40 mg tablet (Lipitor) 80 mg PO BEDTIME 11/14/21 04/25/23 03/21/23 History vitamin B complex-vitamin C-folic 1 tab PO DAILY 11/20/21 04/25/23 03/21/23 History acid 1 mg tablet carbon fiber [place] bilaterally- #1 ea 02/26/22 04/25/23 Unknown Rx AFO Custom Molded Accomodative #1 ea 05/11/22 04/25/23 Unknown Rx Orthotics and Diabetic Shoes insulin glargine 100 unit/mL (3 18 unit SUBCUT BEDTIME 06/20/22 04/25/23 03/20/23 History mL) subcutaneous pen (Lantus Solostar U-100 Insulin) AFO to right #1 ea 07/18/22 04/25/23 Unknown Rx acetaminophen 500 mg tablet 1,500 mg PO QAM 12/19/22 04/25/23 03/22/23 04:00 History amlodipine 10 mg tablet 10 mg PO QAM 12/19/22 04/25/23 03/21/23 08:00 History carboxymethylcellulose sodium 0.5 2 drp ophthalmic (eye) TID PRN 12/19/22 04/25/23 03/20/23 History % eye drops redness clopidogrel 75 mg tablet 75 mg PO QAM 12/19/22 04/25/23 03/20/23 History docusate sodium 100 mg capsule 200 mg PO BID 12/19/22 04/25/23 03/20/23 History (Colace) ferrous sulfate 325 mg (65 mg 325 mg PO QAM 12/19/22 04/25/23 03/21/23 History iron) tablet (iron) glucose 4 gram chewable tablet 4 g PO Q15M PRN for low blood sugar 12/19/22 04/25/23 Unknown History insulin aspart U-100 100 unit/mL 4 unit SUBCUT TID 12/19/22 04/25/23 03/18/23 History (3 mL) subcutaneous pen lidocaine 5 % topical patch 1 patch topical DAILY PRN Pain 12/19/22 04/25/23 Unknown History metoprolol succinate 50 mg 75 mg PO DAILY 12/19/22 04/25/23 03/20/23 History tablet,extended release 24 hr omega-3 fatty acids 1,000 mg 2,000 mg PO BID 12/19/22 04/25/23 03/20/23 History capsule oxycodone 5 mg tablet 5 mg PO Q4H PRN pain #10 tabs 12/19/22 04/25/23 Unknown Rx semaglutide 1 mg/dose (2 mg/1.5 1 mg SUBCUT Q7D 12/19/22 04/25/23 03/17/23 History mL) subcutaneous pen injector sildenafil 100 mg tablet 100 mg PO .EVERY 5 DAYS PRN 12/19/22 04/25/23 Unknown History Erectile Dysfunction tadalafil 20 mg tablet 20 mg PO DAILY PRN Erectile 12/19/22 04/25/23 Unknown History Dysfunction Bedside commode #1 ea 03/22/23 04/25/23 Unknown Rx Shower chair #1 ea 03/22/23 04/25/23 Unknown Rx Wheelchair with elevated foot rest #1 ea 03/22/23 04/25/23 Unknown Rx Walker #1 ea 04/17/23 04/25/23 Unknown Rx alprostadil 10 mcg intracavernosal See Rx Instructions .Route .COMPLEX 04/25/23 04/25/23 Unknown History kit hydrochlorothiazide 25 mg tablet 12.5 mg PO DAILY 04/25/23 04/25/23 Unknown History pantoprazole 40 mg tablet,delayed 40 mg PO BID 04/25/23 04/25/23 Unknown History release tramadol 50 mg tablet 50 mg PO Q4H PRN pain 04/25/23 04/25/23 Unknown History Allergies Allergy/AdvReac Type Severity Reaction Status Date / Time No Known Allergies Allergy Verified 04/25/23 09:12 PFSH Acute PFSH: Medical History (Updated 04/25/23 @ 17:49 by Modesto Barahona MD) Non-pressure chronic ulcer of other part of right foot with fat layer exposed Diabetic peripheral neuropathy associated with type 2 diabetes mellitus Non-pressure chronic ulcer of other part of right foot limited to breakdown of skin Stroke Lumbar paraspinal muscle spasm Glenohumeral arthritis Lumbar disc disease with radiculopathy 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 Pain management contract signed 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 Degenerative lumbar disc Hyperlipidemia Hypertension Diabetes mellitus Surgical History Hx of appendectomy Hx of foot surgery Hx of cholecystectomy Family History Denies family history of Anesthesia complication Social History Smoking and tobacco/nicotine status: never used tobacco/nicotine Alcohol intake: never Substance/Drug Use: never Caregiver/support person: Yes Lives independently: Yes Vitals/I&O/Wt Last Vital Signs Temp 101.5 F H 04/25/23 14:30 Pulse 105 H 04/25/23 13:45 Resp 20 H 04/25/23 12:21 BP 141/72 04/25/23 13:45 Pulse Ox 97 04/25/23 13:45 O2 Del Method Nasal Cannula 04/25/23 12:21 O2 Flow Rate 2 04/25/23 12:21 04/25/23 04/25/23 04/25/23 06:59 14:59 22:59 Intake Total 16.833 / 16.833 Balance 16.833 / 16.833 Weight last 48 hrs Weight 97.522 kg Physical Exam Narrative: General: No acute distress, AO x3, sick appearing, diaphoretic HEENT: PERRLA, pupils bilaterally equal and reactive Chest: Normal vesicular breath sounds, no added sounds, equal good air entry bilaterally CVS: S1-S2 regular, no murmurs, no tachycardia, no gallops, no rubs Abdomen: Soft, nontender, no organomegaly, bowel sounds present Neuro: No focal deficits, no facial deformity, AO x3, power 5/5 in all limbs Left arm bandaged by orthopedics, in splint. Urinary Catheter Management: Rodriguez: Cath Placed During This Visit: yes Urinary Catheter Date of Insertion: 04/25/23 Urinary Catheter Time of Insertion: 11:41 Data 04/25/23 08:48 04/25/23 08:48 Micro: Microbiology 04/25/23 10:15 Blood Culture - Preliminary Blood SPECIMEN COLLECTED 04/25/23 09:22 Blood Culture - Preliminary Blood SPECIMEN COLLECTED A&P Assessment and plan (1) Fall: (2) Sepsis: (3) Cellulitis of left hand: (4) Atrial fibrillation with rapid ventricular response: (5) Hypertension: Qualifiers: Hypertension type: essential hypertension Qualified Code(s): I10 - Essential (primary) hypertension (6) Hyperlipidemia: Qualifiers: Hyperlipidemia type: mixed hyperlipidemia Qualified Code(s): E78.2 - Mixed hyperlipidemia (7) Diabetes mellitus: Qualifiers: Diabetes mellitus complication status: with other specified complication Diabetes mellitus intermediate card tender insulin use: with intermediate card tender use Diabetes mellitus type: type 2 Qualified Code(s): E11.69 - Type 2 diabetes mellitus with other specified complication; Z79.4 - 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 Source most likely cellulitis of the left hand, cellulitis of the foot less likely. Endorgan damage with TULIO. Check blood culture, urine culture, procalcitonin, MRSA swab. Empirically start patient on IV vancomycin and Zosyn for now. Will de-escalate as per culture sensitivities. Check CT with contrast of left forearm, right foot. Fall: Most likely in setting of dehydration and sepsis. Monitor blood pressures. Target blood pressure less than 140/90 mmHg with mean over 65. Patient currently on oxygen. At baseline he is not on oxygen. Cannot rule out PE. Check CTA. Check urine drug screen, alcohol level. IV fluids with normal saline at 100 cc/h. A-fib with RVR: Most likely in setting of dehydration and sepsis. Continue with Cardizem drip for now. Continue with fluid as above. Switch metoprolol to 100 mg twice daily. Give 5 mg IV metoprolol one-time. Wean Cardizem drip keeping heart rate less than 100. Patient currently not not on anticoagulation most likely in setting of anemia. UTLIO: Baseline creatinine up to 1.4. Does have baseline diabetic nephropathy. Currently 2.2. Medical reconstruction done for nephrotoxic drugs. IV fluids as above. Check urine lites, urine creatinine, urine eosinophils. CT abdomen pelvis without contrast to rule out obstructive nephropathy. Keep Rodriguez for now. Hyponatremia: Most likely in setting of dehydration. Fluid as above. Monitor BMP daily for now. Hypertension: Goal blood pressure less than 140/90 mmHg. At home patient is on amlodipine 10 mg daily, metoprolol succinate 75 mg daily. Hold off on amlodipine for now. Uptitrate as for goal blood pressures. Anemia: Baseline hemoglobin seems to be 13.9 in December. Currently 9. Patient is also hemoconcentrated. Check stool for occult blood. Continue with IV Protonix twice daily. Target hemoglobin more than 7. Will transfuse accordingly. Type 2 diabetes mellitus: Check A1c. Continue with Lantus 18 units daily, insulin sliding scale low-dose protocol. Carb consistent diet. CODE STATUS: Patient's daughter would be the healthcare proxy. Full code. Carb consistent diet Protonix will suffice as PUD prophylaxis Heparin 5000 every 12 hourly for DVT prophylaxis Admit to ICU. Attestations Medical Necessity Statement*: Admission for more than 2 midnights for management of sepsis most likely in setting of cellulitis of left hand, A-fib with RVR, TULIO, hyponatremia in a patient with new acute anemia Critical Care Time: The high probability of a clinically significant, sudden or life threatening deterioration of the patient's [cardiac, ID, podiatry, renal] system(s) required my full and direct attention, intervention and personal management. The critical care time is as shown. This time is in addition to time spent performing any reported procedures but includes the following: [x] Data and vital sign review and interpretation [x] Patient assessment, examination and intervention [x] Documentation [x] Medication orders and management Coding Level of Care Code Critical Care >/= 30 minutes Critical care time (in minutes): 70 The high probability of a clinically significant, sudden or life threatening deterioration, as referenced in this documentation, required my full and direct attention, intervention and personal management. The critical care time shown is in addition to time spent performing any reported separately billable procedures and includes the following: [x] Data and vital sign review and interpretation [x] Patient assessment, examination and intervention [x] Medication orders and management [x] Patient/Family updates as able [x] Care Coordination and Documentation. Other Coding Information This patient has a high probability of clinically significant, sudden or life threatening deterioration of the patient's (neurological/pulmonary/cardiac/renal/ID/endocrine) systems required my full, direct attention, the highest level of physician preparedness for urgent intervention and personal management. I managed/supervised life or organ supporting interventions that required frequent physician assessment. I devoted my full attention in the ICU to the direct care of this patient for the period of time indicated above. Time I spent with family or surrogate(s) is included only if the patient was incapable of providing necessary information or participating in decision making. This time includes the following services provided: Telemetry review Hemodynamic interpretation, assessment and management Review and interpretation of CXR Review and interpretation of lab values Review and interpretation of microbiologic data and culture results Review of medications and administration Review and interpretation of Nutrition requirements and management Discussion of management with other consultants and services Clinical update to family members Diagnoses Fall [id number] Sepsis A41.9 Cellulitis of left hand L03.114 Atrial fibrillation with rapid ventricular response I48.91 Essential hypertension I10 Hypertension type: essential hypertension Mixed hyperlipidemia E78.2 Hyperlipidemia type: mixed hyperlipidemia Type 2 diabetes mellitus with other specified complication, with long-term current use of insulin E11.69; Z79.4 Diabetes mellitus complication status: with other specified complication Diabetes mellitus intermediate card tender insulin use: with fdc use Diabetes mellitus type: type 2 Anemia D64.9 S/P foot surgery, right Z98.890 Hyponatremia E87.1
[2023-04-25 15:38] LABS: Glucose Point of Care 91 mg/dL (70-110)
[2023-04-25] MEDS: acetaminophen 1,000 MG/100 ML PIGGYBACK 400 MG IV (16:07)
[2023-04-25] MEDS: pantoprazole 40 mg SDV IVP (16:23)
[2023-04-25 16:24] LABS: Procalcitonin 1.19 ng/mL (0-0.5); Vitamin B12 500 pg/mL (232-1245)
[2023-04-25] MEDS: metoprolol tartrate 1 mg/1 mL SDV 5 mL 5 MG IVP (16:27)
[2023-04-25 16:34] LABS: Iron 14 ug/dL (59-158); Percent Saturation 8.8 % (20-50); Total Iron Binding Capacity 159 mcg/dl; Unsaturated Iron Binding 145 ug/dL (112-347)
[2023-04-25 16:35] LABS: Alcohol Level < 10 mg/dL (0-10)
[2023-04-25] MEDS: piperacillin-tazobactam 3.375 GM in sodium chloride 0.9% (plus) 50 ML IV (16:36)
[2023-04-25] MEDS: heparin 5,000 unit/mL INJ 1 mL 5000 UNIT SUBCUT (16:36)
[2023-04-25] MEDS: sodium chloride 0.9% 1,000 ML 75 ML IV (17:00)
--- NOTE | 2023-04-25 17:03 | P.CONIM_ITS ---
Providers/Reason For Consult 2 Consulting Physician/Specialty*: Anoop Vora DO/orthopedic surgery Reason for Consult*: Left hand cellulitis Requesting Physician: Dr. Naylor Attending Physician: Janki Newman MD Primary Care Provider: Pam Diaz MD History of Present Illness History of Present Illness HPI per ED and patient 62-year-old male who presents to the emergency room with complaints of generalized weakness. He recently had surgery with Dr. Charlton had a foot work done. He has had several falls since then he has some swelling in his right elbow and his right hand has not had any fever sweats chills no shortness of breath he has noticed rapid heart rate and palpitations. Reviewing his chart he has no history of atrial fibrillation he is not on any anticoagulants. On arrival here he is in A-fib with rapid ventricular sponsor heart rate in them 140s. No chest pain mildly short of breath states he has been very weak with any activity recently. Patient has a right foot ulcer that he recently has been seeing Dr. Charlton for has not had any drainage or change in that. Complaining of generalized weakness pain on his left hand states he had a recent surgery with Dr. Charlton, podiatry is following this. Orthopedics was consulted secondary to patient having left dorsal hand cellulitis. Patient had a recent fall over a week ago with a small punctate wounds on his thenar eminence there is no significant erythema on this communicating to the dorsal hand but patient does have dorsal hand and wrist cellulitis on examination. Review of Systems 2 General: Reports: 10 or more systems reviewed and unremarkable except in HPI and below Medications/Allergies Home Medications Medication Instructions Recorded Confirmed Last Taken Type cholecalciferol (vitamin D3) 25 50 mcg PO QAM 12/02/19 04/25/23 03/21/23 History mcg (1,000 unit) tablet polyethylene glycol 3350 17 gram 17 g PO DAILY 12/02/19 04/25/23 12/02/19 History oral powder packet (Miralax) Diabetic Shoes with 3 sets of #1 ea 05/10/20 04/25/23 Unknown Rx inserts nitroglycerin 0.4 mg sublingual 0.4 mg sublingual Q5M PRN chest 10/21/20 04/25/23 Unknown Rx tablet pain #25 tabs aspirin 81 mg tablet,delayed 81 mg PO QAM 30 days #30 tabs 03/03/21 04/25/23 03/21/23 Rx release (Molina Low Dose Aspirin) blood pressure monitor (Blood #1 ea 03/03/21 04/25/23 Unknown Rx Pressure Kit) atorvastatin 40 mg tablet (Lipitor) 80 mg PO BEDTIME 11/14/21 04/25/23 03/21/23 History vitamin B complex-vitamin C-folic 1 tab PO DAILY 11/20/21 04/25/23 03/21/23 History acid 1 mg tablet carbon fiber [place] bilaterally- #1 ea 02/26/22 04/25/23 Unknown Rx AFO Custom Molded Accomodative #1 ea 05/11/22 04/25/23 Unknown Rx Orthotics and Diabetic Shoes insulin glargine 100 unit/mL (3 18 unit SUBCUT BEDTIME 06/20/22 04/25/23 03/20/23 History mL) subcutaneous pen (Lantus Solostar U-100 Insulin) AFO to right #1 ea 07/18/22 04/25/23 Unknown Rx acetaminophen 500 mg tablet 1,500 mg PO QAM 12/19/22 04/25/23 03/22/23 04:00 History amlodipine 10 mg tablet 10 mg PO QAM 12/19/22 04/25/23 03/21/23 08:00 History carboxymethylcellulose sodium 0.5 2 drp ophthalmic (eye) TID PRN 12/19/22 04/25/23 03/20/23 History % eye drops redness clopidogrel 75 mg tablet 75 mg PO QAM 12/19/22 04/25/23 03/20/23 History docusate sodium 100 mg capsule 200 mg PO BID 12/19/22 04/25/23 03/20/23 History (Colace) ferrous sulfate 325 mg (65 mg 325 mg PO QAM 12/19/22 04/25/23 03/21/23 History iron) tablet (iron) glucose 4 gram chewable tablet 4 g PO Q15M PRN for low blood sugar 12/19/22 04/25/23 Unknown History insulin aspart U-100 100 unit/mL 4 unit SUBCUT TID 12/19/22 04/25/23 03/18/23 History (3 mL) subcutaneous pen lidocaine 5 % topical patch 1 patch topical DAILY PRN Pain 12/19/22 04/25/23 Unknown History metoprolol succinate 50 mg 75 mg PO DAILY 12/19/22 04/25/23 03/20/23 History tablet,extended release 24 hr omega-3 fatty acids 1,000 mg 2,000 mg PO BID 12/19/22 04/25/23 03/20/23 History capsule oxycodone 5 mg tablet 5 mg PO Q4H PRN pain #10 tabs 12/19/22 04/25/23 Unknown Rx semaglutide 1 mg/dose (2 mg/1.5 1 mg SUBCUT Q7D 12/19/22 04/25/23 03/17/23 History mL) subcutaneous pen injector sildenafil 100 mg tablet 100 mg PO .EVERY 5 DAYS PRN 12/19/22 04/25/23 Unknown History Erectile Dysfunction tadalafil 20 mg tablet 20 mg PO DAILY PRN Erectile 12/19/22 04/25/23 Unknown History Dysfunction Bedside commode #1 ea 03/22/23 04/25/23 Unknown Rx Shower chair #1 ea 03/22/23 04/25/23 Unknown Rx Wheelchair with elevated foot rest #1 ea 03/22/23 04/25/23 Unknown Rx Walker #1 ea 04/17/23 04/25/23 Unknown Rx alprostadil 10 mcg intracavernosal See Rx Instructions .Route .COMPLEX 04/25/23 04/25/23 Unknown History kit hydrochlorothiazide 25 mg tablet 12.5 mg PO DAILY 04/25/23 04/25/23 Unknown History pantoprazole 40 mg tablet,delayed 40 mg PO BID 04/25/23 04/25/23 Unknown History release tramadol 50 mg tablet 50 mg PO Q4H PRN pain 04/25/23 04/25/23 Unknown History Allergies Allergy/AdvReac Type Severity Reaction Status Date / Time No Known Allergies Allergy Verified 04/25/23 09:12 Current Medications Generic Name Dose Route Start Last Admin Trade Name Freq PRN Reason Stop Dose Admin Heparin Sodium (Porcine) 5,000 unit 04/25/23 15:30 04/25/23 16:36 Heparin 5,000 Unit/Ml Inj 1 Ml SUBCUT 5,000 unit Q12H JEREL Administration Diltiazem HCl 100 mg/ Sodium 100 mls @ 0 mls/hr 04/25/23 09:45 04/25/23 16:10 Chloride IV 10 mg/hr .Q0M JREEL 10 mls/hr Titration Protocol Per Protocol Sodium Chloride 1,000 mls @ 75 mls/hr 04/25/23 15:30 04/25/23 17:00 Sodium Chloride 0.9% IV 75 mls/hr .[id number] JEREL Administration Piperacillin Sod/Tazobactam 50 mls @ 12.5 mls/hr 04/25/23 16:00 04/25/23 16:36 Sod 3.375 gm/ Sodium Chloride IV 12.5 mls/hr Q8H JEREL Administration Protocol Pantoprazole Sodium 40 mg 04/25/23 15:30 04/25/23 16:23 Pantoprazole 40 Mg Sdv IVP 40 mg Q12H JEREL Administration PFSH Acute 2 PFSH: Medical History Lumbar disc disease with radiculopathy 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 FPC (current) use of opiate analgesic Pain management contract signed 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 Degenerative lumbar disc Hyperlipidemia Hypertension Diabetes mellitus Surgical History Hx of appendectomy Hx of foot surgery Hx of cholecystectomy Family History Denies family history of Anesthesia complication Social History Smoking and tobacco/nicotine status: never used tobacco/nicotine Alcohol intake: never Substance/Drug Use: never Caregiver/support person: Yes Lives independently: Yes Vitals/I&O/Wt Last Vital Signs Temp 101.5 F H 04/25/23 14:30 Pulse 105 H 04/25/23 13:45 Resp 20 H 04/25/23 12:21 BP 141/72 04/25/23 13:45 Pulse Ox 97 04/25/23 13:45 O2 Del Method Nasal Cannula 04/25/23 12:21 O2 Flow Rate 2 04/25/23 12:21 04/25/23 04/25/23 04/25/23 06:59 14:59 22:59 Intake Total 166.833 / 293.403 0952.327 / 3494.160 Balance 166.833 / 210.899 5207.327 / 3494.160 Weight last 48 hrs Weight 215 lb Physical Exam 2 Narrative: Examination left upper extremity: Examination left upper extremity patient's dorsal hand has noticeable swelling and pitting edema there is no palpable fluctuance noted there is erythema noted on the dorsal aspect of the hand extending into the dorsal wrist compartments of the lower forearm as well as upper arm are soft and compressible. He has pain with wrist range of motion but is able to tolerate gentle micro range of motion. He has decreased range of motion of his fingers secondary to pain and swelling. He has a small punctate wound on his thenar eminence on the left thumb that does not appear correlating to the cellulitis with no tracking proximally from this area he is able to flex and extend his finger he has no signs of compartment syndrome within the hand. Sensations intact light touch distally, hand is warm well-perfused. No tenderness to palpation of the A1 pulleys no signs of flexor tenosynovitis of the left hand digits Urinary Catheter Management: Rodriguez: Cath Placed During This Visit: yes Urinary Catheter Date of Insertion: 04/25/23 Urinary Catheter Time of Insertion: 11:41 Data 04/25/23 08:48 04/25/23 08:48 Micro: Microbiology 04/25/23 10:15 Blood Culture - Preliminary Blood SPECIMEN COLLECTED 04/25/23 09:22 Blood Culture - Preliminary Blood SPECIMEN COLLECTED Xray Ortho: My impression: Ordering Provider/Ordering MD: Spencer Naylor DO Date of Service: 04/25/23 Procedure(s): XR hand LT min 3V* [id number] Accession Number(s): [id number] Report Number: [id number] WS: [id number] Exam: XR hand LT min 3V* [id number] Date/Time of Exam: 04/25/2023 10:38 AM Reason For Exam: fall, pain No acute fracture or dislocation. Degenerative change in the IP and MP joints. There are 2 small metallic soft tissue foreign body seen in the lateral aspect of the wrist. IMPRESSION1. Minimal degenerative changes. No acute fracture. A&P Assessment and plan (1) Cellulitis of left hand: Plan Nonoperative management at this time Recommend compressive Duong wrap sleeve which was applied Wrist brace applied to left wrist Encourage strict elevation and ice as needed X-rays reviewed Labs reviewed IV antibiotics per primary Orthopedics will continue to follow Patient has left hand dorsal hand cellulitis I do not appreciate any palpable fluctuance on examination he has no modifiable source over the dorsal aspect of the hand with the cellulitis he does have a small punctate wound on the left thenar eminence volarly this does not appear to correlate with his dorsal hand cellulitis. He has had a previous podiatry surgery as well as clinical he has a fever and elevated ESR and CRP no elevated white count at this time. Currently I do not see any indications for surgical intervention and at this point in time diagnosis consistent with left hand cellulitis would recommend conservative treatment with this at this point in time and orthopedics will continue to follow and see his response to treatment. Patient understands agrees with current plan. Questions answered. Coding Level of Care Code Acute Code for Nirmal Fwd Diagnoses Cellulitis of left hand L03.114 Time Spent (min) 40
[2023-04-25 17:13] LABS: Glucose Point of Care 73 mg/dL (70-110)
--- OUTSIDE RECORDS SUMMARY | 2023-04-25 17:19 | XMS_ITS | CCD ---
Author Name Unknown Address [address] [place] [id number] Organization Unknown Address [address] [place] [id number] Care Team Providers Care Corn Sheller Operator Name Role Phone THELMA BRANDT Attending Physician [phone] THELMA BRANDT Er Physician 2 [phone] LASHONDA Tinajero Registered Nurse [phone] Vital Signs Vital Sign Value Unit Date/Time Recent/Initial ? BMI (Body Mass Index) 22.88 kg/m^2 09/13/2020 13: 50 Initial VS Weight Measured 198 lbs 09/13/2020 13:50 Ini tial VS Height 78 in 09/13/2020 13:50 Initial VS BSA (Body Surface Area) 2.22 m^2 09/13/2020 1 3:50 Initial VS BP Systolic 141 mmHg 09/13/2020 13:50 Initial VS BP Diastolic 103 mmHg 09/13/2020 13:50 Initia l VS Respiratory Rate 20 bpm 09/13/2020 13:50 In itial VS Heart Rate 84 bpm 09/13/2020 13:50 Initial VS O2 % BldC Oximetry 98 % 09/13/2020 13:50 Initial VS Body Temperature 97.5 degrees 09/13/2020 13:50 In itial VS BP Systolic 138 mmHg 09/13/2020 15:42 Most Re cent VS BP Diastolic 88 mmHg 09/13/2020 15:42 Most R ecent VS Respiratory Rate 18 bpm 09/13/2020 15:[address] Recent VS Heart Rate 72 bpm 09/13/2020 15:42 Most Rec ent VS O2 % BldC Oximetry 97 % 09/13/2020 15:42 Most Recent VS Allergies Allergy Code Allergy Type Reaction Status No Known Allergies 0 No known allergies Active Procedures Unknown or Not Available. History of Immunizations Immunization Code Date Tdap 115 09/13/2020 Problems Problem Code Start Date Resolved Date Status Laceration of arm [id number] 09/13/2020 Active Results Unknown or Not Available. Active Medications Medications Administered During Visit Medication Dose Units Frequency Route Date/Time of Last Dose DIPHTH/PERTUSSIS(ACELL)/TETANUS VAC 0.5 ML X1 IM 09/13/2020 14:42 TORADOL 60MG INJECTION 60 MG X1 IM 09/13/2020 14:50 Encounters Encounter Diagnosis Diagnosis Code Start Date Laceration without foreign b ernie of left forearm, initial encounter [id number] 09/13/2020 Social History Smoking Status Code Start Date End Date Never smoker [id number] Patient Decision Aids Patient Decision Aid Laceration Discharge Instructions You were admitted to [facility] on 09/13/2020 13:40 with a principal diagnosis of Laceration without foreign body of left forearm, initial encounter You were discharged from [facility] on 09/13/2020 15:45 Should you have any questions prior to discharge, please contact a member of your healthcare team. If you have left the hospital and have any questions, please contact your primary care physician. Chief Complaint and Reason For Visit Chief Complaint Date of Onset LACERATION TO ARM 09/13/2020 Function Status Unknown or Not Available. Plan of Care Unknown or Not Available. Referral/Transition of Care Unknown or Not Available.
--- NOTE | 2023-04-25 17:30 | CTR_ITS ---
PROCEDURE INFORMATION: Exam: CT Right Lower Extremity Without Contrast, Foot Exam date and time: 04/25/2023 5:48 PM Age: 62 years old Clinical indication: Right; Prior surgery; Surgery date: 6+ months; Surgery type: Achilles repair; Patient HX: Cellulitis to RT foot. ; Additional info: Sepsis, cellulitis, post op TECHNIQUE: Imaging protocol: CT of the right lower extremity without contrast was performed. Exam focused on the foot. Radiation optimization: All CT scans at this facility use at least one of these dose optimization techniques: automated exposure control; mA and/or kV adjustment per patient size (includes targeted exams where dose is matched to clinical indication); or iterative reconstruction. REPORTING DATA: Count of CT and Cardiac NM exams in prior 12 months: This patient has received 3 known CTs and 0 known cardiac nuclear medicine studies in the 12 months prior to the current study. COMPARISON: MR foot RT wo/w con [id number] 10/04/2022 7:56 AM RADIATION DOSE METRICS: Total DLP (mGy-cm): 306.12 FINDINGS: Bones/joints: There is a transverse fracture of the distal 3rd of the 4th metatarsal. This is dorsally displaced and overriding the proximal fracture fragment. Soft tissues: There is diffuse soft tissue edema noted on the dorsal and plantar surfaces with associated phlegmon.. CT/CT foot RT wo con* [id number] IMPRESSION: Dorsally displaced transverse fracture of the distal 3rd of the 4th metatarsal. There is associated edema mainly on the plantar aspect of the foot.
--- NOTE | 2023-04-25 17:30 | CTR_ITS ---
PROCEDURE INFORMATION: Exam: CTA Chest With Contrast Exam date and time: 04/25/2023 5:52 PM Age: 62 years old Clinical indication: Shortness of breath and other: Tachycardia. Cisco. Sepsis. Prior surgery; Surgery date: 6+ months; Surgery type: Appy; Patient HX: SOB with tachycardia and fever. Cisco with sepsis. ; Additional info: Possible pe. Cisco, sepsis TECHNIQUE: Imaging protocol: Computed tomographic angiography of the chest with contrast. Exam focused on the arteries. 3D rendering (Not supervised by radiologist): MIP and/or 3D reconstructed images were created by the technologist. Radiation optimization: All CT scans at this facility use at least one of these dose optimization techniques: automated exposure control; mA and/or kV adjustment per patient size (includes targeted exams where dose is matched to clinical indication); or iterative reconstruction. Contrast material: OMNI 350; Contrast volume: 100 ml; Contrast route: INTRAVENOUS (IV); REPORTING DATA: Count of CT and Cardiac NM exams in prior 12 months: This patient has received 3 known CTs and 0 known cardiac nuclear medicine studies in the 12 months prior to the current study. COMPARISON: CR XR chest 1V portable [id number] 04/25/2023 3:00 PM RADIATION DOSE METRICS: Total DLP (mGy-cm): 3274.9 FINDINGS: Pulmonary arteries: There is suboptimal opacification of the pulmonary artery making evaluation of the subsegmental arteries limited. No pulmonary emboli noted in the main, interlobar and proximal segmental arteries.. Aorta: No aortic aneurysm. No aortic dissection. Lungs: There is motion artifact with no infiltrates. There is basal scarring bilaterally. Pleural spaces: No pneumothorax. No pleural effusion. Heart: No cardiomegaly. No pericardial effusion. Lymph nodes: There are prominent mediastinal nodes with no enlarged lymph nodes by CT criteria. Bones/joints: No acute fracture. There is moderate degenerative disease of the spine. Soft tissues: Unremarkable. PROCEDURE INFORMATION: Exam: CT Abdomen And Pelvis With Contrast Exam date and time: 04/25/2023 5:52 PM Age: 62 years old Clinical indication: Shortness of breath and other: Tachycardia. Cisco. Sepsis. Prior surgery; Surgery date: 6+ months; Surgery type: Appy; Patient HX: SOB with tachycardia and fever. Cisco with sepsis. ; Additional info: Possible pe. Cisco, sepsis TECHNIQUE: Imaging protocol: Computed tomography of the abdomen and pelvis with contrast. Radiation optimization: All CT scans at this facility use at least one of these dose optimization techniques: automated exposure control; mA and/or kV adjustment per patient size (includes targeted exams where dose is matched to clinical indication); or iterative reconstruction. Contrast material: OMNI 350; Contrast volume: 100 ml; Contrast route: INTRAVENOUS (IV); REPORTING DATA: Count of CT and Cardiac NM exams in prior 12 months: This patient has received 3 known CTs and 0 known cardiac nuclear medicine studies in the 12 months prior to the current study. COMPARISON: CT abdomen pelvis w con* [id number] 12/19/2022 10:25 AM RADIATION DOSE METRICS: Total DLP (mGy-cm): 3274.9 FINDINGS: Liver: No mass. Portal vein is patent Gallbladder and bile ducts: No calcified stones. No ductal dilation. Pancreas: No ductal dilation. Spleen: No splenomegaly. 3.8 mm hypodensity within the spleen, which is likely a cyst Adrenal glands: Left adrenal fullness remains stable. Kidneys and ureters: No hydronephrosis. There is a 12.6 mm left renal cortical cyst which remains unchanged. There are multiple subcentimeter hypodensities in the right kidney, statistically these represent cysts. Stomach and bowel: Small hiatal hernia. Stomach is not fully distended making evaluation limited. No evidence of obstruction. Appendix: Patient is status post appendectomy. . Intraperitoneal space: No free air. No significant fluid collection. Vasculature: No abdominal aortic aneurysm. Lymph nodes: No enlarged lymph nodes. Urinary bladder: Decompressed secondary to the presence of a Rodriguez catheter within it. There is some air bubbles noted which is in keeping with a catheter.. Reproductive: Unremarkable as visualized. Bones/joints: No acute fracture. Mild levoscoliosis of the lumbar spine. Moderate degenerative disease of the spine. Soft tissues: Unremarkable. CT/CT angio chest w abd pel w con IMPRESSION: Suboptimal opacification of the pulmonary artery makes evaluation of the subsegmental arteries limited. There is no pulmonary embolism in the main, inter lobar proximal segmental arteries. IMPRESSION: No acute findings. COMMENTS: Consistent with the [employer]'s Incidental Findings Committee white paper (J Am Axel Radiol 2018): Any incidental renal lesion less than 1 cm or classified as too small to characterize, or any incidental cystic renal lesion characterized as simple-appearing, is likely benign. No follow-up imaging is recommended for these lesions per consensus recommendations based on imaging criteria.
--- NOTE | 2023-04-25 17:33 | CTR_ITS ---
PROCEDURE INFORMATION: Exam: CT Left Upper Extremity With Contrast, Hand Exam date and time: 04/25/2023 6:05 PM Age: 62 years old Clinical indication: Patient HX: Cellulitis to left hand; Additional info: Cellulitis, abscess , elbow to hand TECHNIQUE: Imaging protocol: Computed tomography of the left upper extremity with contrast. Exam focused on the hand. Radiation optimization: All CT scans at this facility use at least one of these dose optimization techniques: automated exposure control; mA and/or kV adjustment per patient size (includes targeted exams where dose is matched to clinical indication); or iterative reconstruction. Contrast material: OMNI 350; Contrast volume: 25 ml; Contrast route: INTRAVENOUS (IV); REPORTING DATA: Count of CT and Cardiac NM exams in prior 12 months: This patient has received 3 known CTs and 0 known cardiac nuclear medicine studies in the 12 months prior to the current study. COMPARISON: CR XR hand LT min 3V* [id number] 04/25/2023 10:39 AM RADIATION DOSE METRICS: Total DLP (mGy-cm): 685.97 FINDINGS: Bones/joints: No acute fracture or dislocation. Soft tissues: Diffuse soft tissue edema on the volar and palmar surfaces. There is no radiopaque foreign body noted. There are no abscesses or collections noted. CT/CT hand LT w con [id number] IMPRESSION: Diffuse cellulitis with extensive soft tissue edema with no abscesses or collections noted.
[2023-04-25 17:46] LABS: Amphetamines Screen Urine Negative (Negative); Barbiturates Screen Urine Negative (Negative); Benzodiazepines Screen Urine Negative (Negative); Cocaine Screen Urine Negative (Negative); Opiate Screen Urine Positive (Negative); PCP Screen Urine Negative (Negative); THC Screen Urine Negative (Negative)
[2023-04-25 18:09] LABS: Potassium, Radom Urine 41 mmol/L; Urine Creatinine 144 mg/dL (39-259); Urine Random Chloride 36 mmol/L; Urine Random Sodium 43 mmol/L
[2023-04-25] MEDS: iohexol 350 mg/mL 500 mL Btl (per mL) IV (18:10)
[2023-04-25 19:23] LABS: Eosinophil Urine No Eosinophils Seen
[2023-04-25 20:22] LABS: Urine Eosinophil Count 0 (0-0)
--- NOTE | 2023-04-25 20:30 | PC.NURSE ---
Lantus Patient's blood glucose level 68 upon admission. Following 8 oz orange juice and a sandwich, blood glucose increased to 93. Dr. Castillo contacted and order received to hold evening lantus. Lantus not administered.
[2023-04-25] MEDS: atorvastatin 40 mg Tablet 80 MG PO (20:51)
[2023-04-25] MEDS: metoprolol tartrate 50 mg Tablet PO (20:52)
--- NOTE | 2023-04-25 21:00 | PC.NURSE ---
Arm Brace Upon assessment of patient, patient's fingers cool, pale, and radial pulse diminished in the left hand. Dr. Vora contacted; order received to take brace off for 20 minutes then rewrap brace, looser than previously. Brace removed for 20 minutes then rewrapped per orders.
[2023-04-25] MEDS: magnesium hydroxide 30 mL UDC PO (22:51)
[2023-04-26] VITALS (80 sets, daily range): BP systolic 136–170; BP diastolic 68–100; PULSE 76–122; RESP 13–28; TEMP 36.9–37.2; O2SAT 85–100; BMI 32.8
[2023-04-26] MEDS: piperacillin-tazobactam 3.375 GM in sodium chloride 0.9% (plus) 50 ML IV ×4 (00:34→23:53)
[2023-04-26] MEDS: morphine 4 mg/mL SDV 1 mL 2 MG IVP ×4 (00:40→23:51)
[2023-04-26 01:12] LABS: Adenovirus Not Detected (NOT DETECT); Chlamydia Pneumoniae Not Detected (NOT DETECT); Coronavirus 229E,HKU1,NL63,OC4 Not Detected (NOT DETECT); Human Metapneumovirus Not Detected (NOT DETECT); Human Rhinovirus/Enterovirus Not Detected (NOT DETECT); Influenza A Not Detected (NOT DETECT); Influenza A H1 Not Detected (NOT DETECT); Influenza A H1-2009 Not Detected (NOT DETECT); Influenza A H3 Not Detected (NOT DETECT); Influenza B Not Detected (NOT DETECT); Mycoplasma Pneumoniae Not Detected (NOT DETECT); Parainfluenza Virus Type 1 Not Detected (NOT DETECT); Parainfluenza Virus Type 2 Not Detected (NOT DETECT); Parainfluenza Virus Type 3 Not Detected (NOT DETECT); Parainfluenza Virus Type 4 Not Detected (NOT DETECT); Respiratory Syncytial Virus A Not Detected (NOT DETECT); Respiratory Syncytial Virus B Not Detected (NOT DETECT); SARS-COV-2 Not Detected (NOT DETECT)
[2023-04-26] MEDS: HYDROcodone-acetaminophen 5-325 mg Tablet 1 TAB PO (02:29)
[2023-04-26] MEDS: heparin 5,000 unit/mL INJ 1 mL 5000 UNIT SUBCUT ×2 (03:41→16:17)
[2023-04-26] MEDS: pantoprazole 40 mg SDV IVP ×2 (03:41→16:17)
[2023-04-26 04:21] LABS: Basophils % 0.2 %; Hematocrit 21.9 % (37-53); Lymphocytes # 0.5 10^3/uL (0.8-4.8); Lymphocytes % 11.2 %; Mean Corpuscular HGB Conc 32.9 g/dL (30-55); Mean Corpuscular Hemoglobin 32.4 pg (27-33); Mean Corpuscular Volume 98.6 fl (82-101); Mean Platelet Volume 10.5 fL (7.4-10.4); Monocytes # 0.6 10^3/uL (0.2-0.9); Monocytes % 13.3 %; Neutrophils # 3.59 10^3/uL (1.8-7.7); Neutrophils % 74.5 %; Nucleated Red Blood Cells % 0 %; Platelet Count 150 10^3/cmm (157-399); Red Blood Count 2.22 10^6/uL (3.85-5.65); Red Cell Distribution Width 13.2 % (12.1-15.1); White Blood Count 4.82 10^3/uL (3.29-11.43)
[2023-04-26] MEDS: sodium chloride 0.9% 1,000 ML 100 ML IV ×2 (04:29→16:18)
[2023-04-26 04:40] LABS: Alanine Aminotransferase 36 U/L (0-41); Albumin Level 2.7 g/dL (3.5-5.2); Alkaline Phosphatase 101 U/L (40-130); Aspartate Amino Transferase 49 U/L (0-40); Blood Urea Nitrogen 57 mg/dL (8-23); Calcium 9.4 mg/dL (8.5-10.5); Carbon Dioxide 20 mmol/L (22-29); Chloride 100 mmol/L (98-107); Chol HDL Ratio 3.76 mg/dL (1.0-5.00); Cholesterol 64 mg/dL (0-200); Globulin 4.4 g/dL (1.3-4.6); Glomerular Filtration Rate 23.1 mL/min (90-130); Glucose 84 mg/dL (65-115); HDL Cholesterol 17 mg/dL (60-100); LDL Cholesterol Calculated 32 mg/dL (50-129); LDL HDL Ratio 1.88 RATIO (0.00-3.22); Osmolality Calculated 283 mOsm/kg (285-295); Phosphorus 4.1 mg/dL (2.5-4.5); Sodium 129 mmol/L (136-145); Total Bilirubin 0.5 mg/dL (0.15-1.2); Total Protein 7.1 g/dL (6.6-8.7); Triglycerides 74 mg/dL (0-150)
[2023-04-26 04:46] LABS: Procalcitonin 2.13 ng/mL (0-0.5)
[2023-04-26 04:59] LABS: Estmated Average Glucose 131; Hemoglobin A1C 6.2 % (4.0-6.0)
[2023-04-26] MEDS: clopidogrel 75 mg Tablet PO (05:04)
[2023-04-26] MEDS: ferrous sulfate EC 325 mg Tablet PO (05:04)
[2023-04-26 05:08] LABS: Folate Level > 20.0 ng/mL (4.5-32.2)
--- NOTE | 2023-04-26 07:35 | P.CONIM_ITS ---
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 Patient states that he has had multiple falls send surgery. He is currently nonweightbearing to the right lower extremity. Upon further workup patient was found to have swelling in his right elbow and his right hand. He denied any constitutional symptoms. In the emergency department he was also found to have A-fib with tachycardia. Patient has no history of A- fib. He was admitted due to signs of sepsis with acute kidney injury and mild encephalopathy. Workup revealed site of sepsis likely to be thenar eminence of left hand. Patient does not recall any significant event that brought about puncture wound to the left hand other than a recent fall. CT scan of right foot was obtained which revealed dorsally displaced transverse fracture of the distal fourth metatarsal . Podiatry was consulted to evaluate and provide further recommendations. Review of Systems 2 General: Reports: 10 or more systems reviewed and unremarkable except in HPI and below Const: Denies: fever(s), chills or fatigue Eyes: Denies: change in vision ENMT: Denies: sinus pain Card: Denies: chest pain, palpitations or lightheadedness Resp: Denies: dyspnea GI: Denies: abdominal pain, nausea or vomiting Musc: Reports: extremity pain, extremity swelling and limited range of motion; Denies: neck pain or back pain Skin/Breast: Reports: skin swelling Neuro: Denies: numbness in extremities Medications/Allergies Home Medications Medication Instructions Recorded Confirmed Last Taken Type cholecalciferol (vitamin D3) 25 50 mcg PO QAM 12/02/19 04/25/23 03/21/23 History mcg (1,000 unit) tablet polyethylene glycol 3350 17 gram 17 g PO DAILY 0704/25/23 12/02/19 History oral powder packet (Miralax) Diabetic Shoes with 3 sets of #1 ea 05/10/20 04/25/23 Unknown Rx inserts nitroglycerin 0.4 mg sublingual 0.4 mg sublingual Q5M PRN chest 10/21/20 04/25/23 Unknown Rx tablet pain #25 tabs aspirin 81 mg tablet,delayed 81 mg PO QAM 30 days #30 tabs 03/03/21 04/25/23 03/21/23 Rx release (Molina Low Dose Aspirin) blood pressure monitor (Blood #1 ea 03/03/21 04/25/23 Unknown Rx Pressure Kit) atorvastatin 40 mg tablet (Lipitor) 80 mg PO BEDTIME 11/14/21 04/25/23 03/21/23 History vitamin B complex-vitamin C-folic 1 tab PO DAILY 11/20/21 04/25/23 03/21/23 History acid 1 mg tablet carbon fiber [place] bilaterally- #1 ea 02/26/22 04/25/23 Unknown Rx AFO Custom Molded Accomodative #1 ea 05/11/22 04/25/23 Unknown Rx Orthotics and Diabetic Shoes insulin glargine 100 unit/mL (3 18 unit SUBCUT BEDTIME 06/20/22 04/25/23 03/20/23 History mL) subcutaneous pen (Lantus Solostar U-100 Insulin) AFO to right #1 ea 07/18/22 04/25/23 Unknown Rx acetaminophen 500 mg tablet 1,500 mg PO QAM 12/19/22 04/25/23 03/22/23 04:00 History amlodipine 10 mg tablet 10 mg PO QAM 12/19/22 04/25/23 03/21/23 08:00 History carboxymethylcellulose sodium 0.5 2 drp ophthalmic (eye) TID PRN 12/19/22 04/25/23 03/20/23 History % eye drops redness clopidogrel 75 mg tablet 75 mg PO QAM 12/19/22 04/25/23 03/20/23 History docusate sodium 100 mg capsule 200 mg PO BID 12/19/22 04/25/23 03/20/23 History (Colace) ferrous sulfate 325 mg (65 mg 325 mg PO QAM 12/19/22 04/25/23 03/21/23 History iron) tablet (iron) glucose 4 gram chewable tablet 4 g PO Q15M PRN for low blood sugar 12/19/22 04/25/23 Unknown History insulin aspart U-100 100 unit/mL 4 unit SUBCUT TID 12/19/22 04/25/23 03/18/23 History (3 mL) subcutaneous pen lidocaine 5 % topical patch 1 patch topical DAILY PRN Pain 12/19/22 04/25/23 Unknown History metoprolol succinate 50 mg 75 mg PO DAILY 12/19/22 04/25/23 03/20/23 History tablet,extended release 24 hr omega-3 fatty acids 1,000 mg 2,000 mg PO BID 12/19/22 04/25/23 03/20/23 History capsule oxycodone 5 mg tablet 5 mg PO Q4H PRN pain #10 tabs 12/19/22 04/25/23 Unknown Rx semaglutide 1 mg/dose (2 mg/1.5 1 mg SUBCUT Q7D 12/19/22 04/25/23 03/17/23 History mL) subcutaneous pen injector sildenafil 100 mg tablet 100 mg PO .EVERY 5 DAYS PRN 12/19/22 04/25/23 Unknown History Erectile Dysfunction tadalafil 20 mg tablet 20 mg PO DAILY PRN Erectile 12/19/22 04/25/23 Unknown History Dysfunction Bedside commode #1 ea 03/22/23 04/25/23 Unknown Rx Shower chair #1 ea 03/22/23 04/25/23 Unknown Rx Wheelchair with elevated foot rest #1 ea 03/22/23 04/25/23 Unknown Rx Walker #1 ea 04/17/23 04/25/23 Unknown Rx alprostadil 10 mcg intracavernosal See Rx Instructions .Route .COMPLEX 04/25/23 04/25/23 Unknown History kit hydrochlorothiazide 25 mg tablet 12.5 mg PO DAILY 04/25/23 04/25/23 Unknown History pantoprazole 40 mg tablet,delayed 40 mg PO BID 04/25/23 04/25/23 Unknown History release tramadol 50 mg tablet 50 mg PO Q4H PRN pain 04/25/23 04/25/23 Unknown History Allergies Allergy/AdvReac Type Severity Reaction Status Date / Time No Known Allergies Allergy Verified 04/25/23 09:12 Current Medications Generic Name Dose Route Start Last Admin Trade Name Freq PRN Reason Stop Dose Admin Hydrocodone Bitart/Acetaminophen 1 tab 04/25/23 15:28 04/26/23 02:29 Hydrocodone-Acetaminophen 5-325 Mg Tablet PO 1 tab Q6H PRN Administration MODERATE TO SEVERE PAIN Atorvastatin Calcium 80 mg 04/25/23 21:00 04/25/23 20:51 Atorvastatin 40 Mg Tablet PO 80 mg BEDTIME JEREL Administration Clopidogrel Bisulfate 75 mg 04/26/23 06:00 04/26/23 05:04 Clopidogrel 75 Mg Tablet PO 75 mg QAM JEREL Administration Ferrous Sulfate 325 mg 04/26/23 06:00 04/26/23 05:04 Ferrous Sulfate Ec 325 Mg Tablet PO 325 mg QAM JEREL Administration Heparin Sodium (Porcine) 5,000 unit 04/25/23 15:30 04/26/23 03:41 Heparin 5,000 Unit/Ml Inj 1 Ml SUBCUT 5,000 unit Q12H JEREL Administration Sodium Chloride 1,000 mls @ 100 mls/hr 04/25/23 15:30 04/26/23 04:29 Sodium Chloride 0.9% IV 100 mls/hr .Q10H JEREL Administration Piperacillin Sod/Tazobactam 50 mls @ 12.5 mls/hr 04/25/23 16:00 04/26/23 05:13 Sod 3.375 gm/ Sodium Chloride IV Infused Q8H JEREL Infusion Protocol Insulin Glargine 18 unit 04/25/23 21:00 04/25/23 20:29 Insulin Glargine 100 Units/1 Ml SUBCUT Not Given BEDTIME [facility] Insulin Human Lispro 0 unit 04/25/23 18:00 04/25/23 20:22 Insulin Lispro 100 Unit/1 Ml SUBCUT Not Given WM&BEDTIME [facility] Protocol Magnesium Hydroxide 30 ml 04/25/23 15:28 04/25/23 22:51 Magnesium Hydroxide 30 Ml Udc PO 30 ml DAILY PRN Administration Constipation (see protocol) Protocol Metoprolol Tartrate 50 mg 04/25/23 21:00 04/25/23 20:52 Metoprolol Tartrate 50 Mg Tablet PO 50 mg BID@0900,2100 JEREL Administration Morphine Sulfate 2 mg 04/25/23 14:26 04/26/23 00:40 Morphine 4 Mg/Ml Sdv 1 Ml IVP 2 mg Q4H PRN Administration SEVERE PAIN Pantoprazole Sodium 40 mg 04/25/23 15:30 04/26/23 03:41 Pantoprazole 40 Mg Sdv IVP 40 mg Q12H JEREL Administration PFSH Acute 2 PFSH: Medical History (Updated 04/25/23 @ 17:49 by Modesto Barahona MD) Non-pressure chronic ulcer of other part of right foot with fat layer exposed Diabetic peripheral neuropathy associated with type 2 diabetes mellitus Non-pressure chronic ulcer of other part of right foot limited to breakdown of skin Stroke Lumbar paraspinal muscle spasm Glenohumeral arthritis Lumbar disc disease with radiculopathy 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 care home (current) use of opiate analgesic Pain management contract signed 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 Degenerative lumbar disc Hyperlipidemia Hypertension Diabetes mellitus Surgical History Hx of appendectomy Hx of foot surgery Hx of cholecystectomy Family History Denies family history of Anesthesia complication Social History Smoking and tobacco/nicotine status: never used tobacco/nicotine Alcohol intake: never Substance/Drug Use: never Caregiver/support person: Yes Lives independently: Yes Vitals/I&O/Wt Last Vital Signs Temp 99.0 F 04/26/23 04:45 Pulse 80 04/26/23 06:00 Resp 21 H 04/26/23 06:00 BP 154/79 04/26/23 06:00 Pulse Ox 92 04/26/23 06:00 O2 Del Method Nasal Cannula 04/26/23 06:00 O2 Flow Rate 3 04/26/23 06:00 04/25/23 04/26/23 04/26/23 22:59 06:59 14:59 Intake Total 3964.327 / 4131.160 1267.5 / 5398.660 Output Total 150 / 150 350 / 500 Balance 3814.327 / 3981.160 917.5 / 4898.660 Weight last 48 hrs Weight 222 lb 10.67 oz Weight 218 lb 4.122 oz Weight 215 lb Physical Exam 2 Narrative: BELOW IS A FOCUSED LOWER EXTREMITY EXAM GENERAL: A&O x 3 VASCULAR: DP/PT pulses palpable 2/4 with CFT intact, <3seconds to distal digits DERMATOLOGICAL: Skin turgor and temperature is within normal limits. No interdigital maceration noted. Ulceration plantar aspect of right foot shows epithelialization, partial-thickness wound with no active drainage, malodor, redness or signs of deep space infection. Dorsal right foot incision is healed. No proximal streaking noted. MUSCULOSKELETAL: Planus foot type bilaterally. Hallux valgus bilaterally. Hammertoes of lesser digits bilaterally. No pain with palpation of surrounding area of healed wound plantar aspect right foot or justin-incisional area to right foot NEUROLOGICAL: Neurological sensation to the affected foot and ankle is present through L4-S1 dermatomes with no hyper/hypoesthesias, negative Tinel or Valleix's sign IMAGING: Three-view x-rays right foot and CT scan right foot personally interpreted by me which show changes to the fourth metatarsal consistent with recent surgery, postsurgical changes of fourth metatarsal osteotomy. No acute signs of infection Urinary Catheter Management: Rodriguez: Cath Placed During This Visit: yes Reason for Continuing Indwelling Catheter: Accurate Measurement of Urinary Output in Critically Ill Patients Urinary Catheter Date of Insertion: 04/25/23 Urinary Catheter Time of Insertion: 11:41 Data 04/26/23 03:40 04/26/23 03:40 Micro: Microbiology 04/25/23 10:15 Blood Culture - Preliminary Blood SPECIMEN COLLECTED 04/25/23 09:22 Blood Culture - Preliminary Blood SPECIMEN COLLECTED A&P Assessment and plan (1) S/P foot surgery, right: (2) Sepsis: (3) Diabetes mellitus: Qualifiers: Diabetes mellitus type: type 2 Diabetes mellitus correction insulin use: with long wall mining machine helper use Diabetes mellitus complication status: with other specified complication Qualified Code(s): E11.69 - Type 2 diabetes mellitus with other specified complication; Z79.4 - manager long term care (current) use of insulin (4) Cellulitis and abscess of hand: Plan -Status post right foot percutaneous Achilles tendon lengthening, fourth metatarsal floating osteotomy and split-thickness skin graft. Stable right foot -Labs and vitals reviewed -WBC 8.04--> 4.82 -ESR 41 -CRP 307.6 -HR 105--> 81 -RR 20-->21 -Tmax 101.5--> 99 -Cultures pending -Abx Vanco/Zosyn -Diet: Per hospitalist -Right foot stable. Changes on imaging consistent with postoperative state. No surgical intervention by podiatry during this admission. -Pain Mgmt: Per hospitalist -Weight bearing: Nonweightbearing to right lower extremity -Dressings: Dry sterile dressing to right plantar foot wound -Continue current Abx therapy until ID and Sensitivity results -Trend labs -Discharge plan: Okay to discharge home from podiatry standpoint once deemed medically stable. -Podiatry will sign off. Please reconsult if needed. Consult Attestations 2 Medical Necessity Statement: See hospitalist note Coding Level of Care Code Acute Code for Chg Fwd Diagnoses S/P foot surgery, right Z98.890 Sepsis A41.9 Type 2 diabetes mellitus with other specified complication, with long-term current use of insulin E11.69; Z79.4 Diabetes mellitus type: type 2 Diabetes mellitus long wall mining machine helper insulin use: with correction use Diabetes mellitus complication status: with other specified complication Cellulitis and abscess of hand L03.119; L02.519
[2023-04-26] MEDS: vancomycin 1,500 MG/300 ML PIGGYBACK 200 MG IV (07:40)
[2023-04-26] MEDS: metoprolol tartrate 50 mg Tablet PO ×2 (08:42→21:07)
--- NOTE | 2023-04-26 09:06 | PC.NURSE ---
pain medication given for left hand pain and ice pack applied at this time .. family in room
[2023-04-26 09:13] LABS: Lactate Dehydrogenase 145 U/L (135-225)
[2023-04-26 09:30] LABS: Reticulocyte % 0.7 % (0.5-2.0)
[2023-04-26] MEDS: iron sucrose 200 MG in sodium chloride 0.9% (100 ml) 100 ML 220 MG IV (09:52)
--- NOTE | 2023-04-26 10:43 | P.PN_ITS ---
Subjective 2 Subjective: Lovenox overnight. Has been hemodynamically stable and afebrile. Seen with daughter at bedside. Patient continues to complain of pain in both his arms and elbows. Denies any nausea, vomiting, headache. As per the daughter patient has had multiple falls which they have attributed to poor balance from neuropathy. Patient's appetite has been poor has had few episodes of vomiting the last few weeks. Blood work appreciated. Poor urine output documented in last 24 hours since admission. Vitals/I&O/Wt Last Vital Signs Temp 99.0 F 04/26/23 04:45 Pulse 82 04/26/23 08:15 Resp 24 H 04/26/23 08:41 BP 152/82 04/26/23 08:15 Pulse Ox 91 04/26/23 08:15 O2 Del Method Nasal Cannula 04/26/23 08:00 O2 Flow Rate 3 04/26/23 08:00 04/25/23 04/26/23 04/26/23 22:59 06:59 14:59 Intake Total 3964.327 / 4131.160 1267.5 / 5398.660 450 / 450 Output Total 150 / 150 350 / 500 Balance 3814.327 / 3981.160 917.5 / 4898.660 450 / 450 Weight last 48 hrs Weight 101 kg Weight 99 kg Weight 97.522 kg Physical Exam 2 Narrative: General: No acute distress, AO x3, sick appearing, diaphoretic HEENT: PERRLA, pupils bilaterally equal and reactive Chest: Normal vesicular breath sounds, no added sounds, equal good air entry bilaterally CVS: S1-S2 regular, no murmurs, no tachycardia, no gallops, no rubs Abdomen: Soft, nontender, no organomegaly, bowel sounds present Neuro: No focal deficits, no facial deformity, AO x3, power 5/5 in all limbs Left arm bandaged by orthopedics, in splint. Skin: OTHER: Urinary Catheter Management: Rodriguez: Cath Placed During This Visit: yes Reason for Continuing Indwelling Catheter: Accurate Measurement of Urinary Output in Critically Ill Patients Urinary Catheter Date of Insertion: 04/25/23 Urinary Catheter Time of Insertion: 11:41 Data 04/26/23 03:40 04/26/23 03:40 Micro: Microbiology 04/25/23 10:15 Blood Culture - Preliminary Blood NEGATIVE TO DATE 04/25/23 09:22 Blood Culture - Preliminary Blood NEGATIVE TO DATE A&P Assessment and plan (1) Fall: (2) Sepsis: (3) Cellulitis of left hand: (4) Atrial fibrillation with rapid ventricular response: (5) Hypertension: Qualifiers: Hypertension type: essential hypertension Qualified Code(s): I10 - Essential (primary) hypertension (6) Hyperlipidemia: Qualifiers: Hyperlipidemia type: mixed hyperlipidemia Qualified Code(s): E78.2 - Mixed hyperlipidemia (7) Diabetes mellitus: Qualifiers: Diabetes mellitus complication status: with other specified complication Diabetes mellitus terminal system operator insulin use: with terminal system operator use Diabetes mellitus type: type 2 Qualified Code(s): E11.69 - Type 2 diabetes mellitus with other specified complication; Z79.4 - [facility] (current) use of insulin (8) Anemia: (9) S/P foot surgery, right: (10) Hyponatremia: (11) Rhabdomyolysis: Plan Sepsis: Ruled in on admission given fever, leukocytosis, tachycardia. Source most likely cellulitis of the left hand, cellulitis of the foot less likely. Endorgan damage with TULIO. Follow-up blood culture, urine culture. MRSA swab pending. Patient does have swelling and erythema of the right elbow. Will plan for CT of the right elbow to rule out septic arthritis versus abscess. Cellulitis of left hand: Appreciate orthopedic recommendations. Remove splint for now. Patient's hand swollen. Elevate. Continue wound care as per surgical team. Ice pack as needed. Neurovascular checks every 6 hours. Empirically start patient on IV vancomycin and Zosyn for now. Will de-escalate as per culture sensitivities. Appreciate CT with contrast of left forearm, right foot. Without any collection in the arm. Does have fracture of the metatarsal. Podiatry on board. TULIO: Baseline creatinine up to 1.4 to 1.6. Does have baseline diabetic nephropathy. Creatinine worsening today. Urine output poor. Continue with IV fluids. 1 dose of 40 mg of IV Lasix. Check CPK. Repeat BMP in evening. CT abdomen pelvis negative for obstructive nephropathy. Appreciate urine lites. Keep Rodriguez for now. Anemia: Baseline hemoglobin seems to be 13.9 in December. Hemoglobin down to 7.2. Repeat hemoglobin in afternoon. If needed will transfuse PRBC. Check stool for occult blood. If positive we will plan for EGD and colonoscopy. Hold off on surgical Consultation for now Continue with IV Protonix twice daily. Add Carafate before meals and at bedtime. Target hemoglobin more than 7. Fall: Most likely in setting of dehydration and sepsis along with longstanding neuropathy. Monitor blood pressures. Target blood pressure less than 140/90 mmHg with mean over 65. Patient currently on oxygen. At baseline he is not on oxygen. CTA ruled out PE. Urine drug screen negative. Continue with IV fluids at 100 cc/h. PT evaluation. Post recent foot surgery: Podiatry on board. Appreciate CT of the foot. Nonweightbearing. Wound care as per podiatry team. A-fib with RVR: Resolved. Most likely in setting of dehydration and sepsis. Off Cardizem drip. Continue with metoprolol at 50 mg twice daily. Patient currently not not on anticoagulation most likely in setting of anemia. Will do further med rec to confirm. Hyponatremia: Most likely in setting of dehydration. Fluid as above. Monitor BMP daily for now. Hypoxia: Appreciate CT chest. No consolidation. No PE. Aggressive pulmonary toilet. Out of bed to chair. Oxygen supplementation keeping saturation over 90%. Pulmicort twice daily, DuoNebs every 6 hours. Hypertension: Goal blood pressure less than 140/90 mmHg. At home patient is on amlodipine 10 mg daily, metoprolol succinate 75 mg daily. Hold off on amlodipine for now. Uptitrate as for goal blood pressures. Type 2 diabetes mellitus: Appreciate A1c and improving. Decrease Lantus to 15 units daily, insulin sliding scale low-dose protocol. Carb consistent diet. CODE STATUS: Patient's daughter would be the healthcare proxy. Full code. Carb consistent diet Protonix will suffice as PUD prophylaxis Heparin 5000 every 12 hourly for DVT prophylaxis Admit to ICU. Attestations 2 Medical Necessity Statement*: Requires further hospitalization for sepsis in setting of cellulitis of left hand, TULIO, hyponatremia, acute anemia Diagnoses Fall W19.XXXA Sepsis A41.9 Cellulitis of left hand L03.114 Atrial fibrillation with rapid ventricular response I48.91 Essential hypertension I10 Hypertension type: essential hypertension Mixed hyperlipidemia E78.2 Hyperlipidemia type: mixed hyperlipidemia Type 2 diabetes mellitus with other specified complication, with long-term current use of insulin E11.69; Z79.4 Diabetes mellitus complication status: with other specified complication Diabetes mellitus terminal system operator insulin use: with jail use Diabetes mellitus type: type 2 Anemia D64.9 S/P foot surgery, right Z98.890 Hyponatremia E87.1 Rhabdomyolysis M62.82
--- NOTE | 2023-04-26 11:10 | PC.NURSE ---
Dr Lemos here pt c/o large amts pain in right elbow and left wrist area .... brace removed and zoila wrap doppled pulse zoila replaced and elevated on 2 pillows at this time tramadol started
[2023-04-26 11:23] LABS: Creatine Phosphokinase 752 U/L (39-308)
[2023-04-26 11:33] LABS: Glucose Point of Care 68 mg/dL (70-110)
[2023-04-26 11:33] LABS: Glucose Point of Care 73 mg/dL (70-110)
[2023-04-26 11:33] LABS: Glucose Point of Care 93 mg/dL (70-110)
[2023-04-26 11:33] LABS: Glucose Point of Care 90 mg/dL (70-110)
[2023-04-26 11:49] LABS: Glucose Point of Care 145 mg/dL (70-110)
[2023-04-26 11:49] LABS: Glucose Point of Care 97 mg/dL (70-110)
[2023-04-26 11:49] LABS: Glucose Point of Care 81 mg/dL (70-110)
--- NOTE | 2023-04-26 12:01 | CTR_ITS ---
PROCEDURE INFORMATION: Exam: CT Right Upper Extremity Without Contrast, Elbow Exam date and time: 04/26/2023 4:25 PM Age: 62 years old Clinical indication: Pain; Swelling; Elbow; Right; Additional info: Possible septic arthritis TECHNIQUE: Imaging protocol: Computed tomography of the right upper extremity without contrast. Exam focused on the elbow. Radiation optimization: All CT scans at this facility use at least one of these dose optimization techniques: automated exposure control; mA and/or kV adjustment per patient size (includes targeted exams where dose is matched to clinical indication); or iterative reconstruction. REPORTING DATA: Count of CT and Cardiac NM exams in prior 12 months: This patient has received 6 known CTs and 0 known cardiac nuclear medicine studies in the 12 months prior to the current study. COMPARISON: [place] [id number] 04/25/2023 10:50 AM RADIATION DOSE METRICS: Total DLP (mGy-cm): 995.51 FINDINGS: Bones/joints: No acute fracture or dislocation. No evidence of joint effusion. Mild degenerative changes of the elbow. No irregular osseous erosions. Soft tissues: Subcutaneous edema along the posterolateral elbow. CT/CT elbow RT wo con* [id number] IMPRESSION: 1. No evidence of joint effusion or irregular osseous erosions/secondary sequela of septic arthritis. 2. Subcutaneous edema along the posterolateral elbow.
[2023-04-26 12:05] LABS: Glucose Point of Care 74 mg/dL (70-110)
[2023-04-26] MEDS: FUROsemide 10 mg/mL SDV 4mL 40 MG IVP (12:07)
--- NOTE | 2023-04-26 14:11 | P.PN_ITS ---
Subjective 2 Subjective: Patient seen and examined this afternoon. Patient in the ICU. Patient still complaining of left hand pain as well as right elbow pain. CT scans of the left hand and elbow demonstrate no fluid collection or drainable abscess findings consistent with cellulitis. Patient currently on IV antibiotics as well as Duong wrap and splint to the left hand Duong wrap and elevation does appear to have help with some of patient's edema of the left hand Vitals/I&O/Wt Last Vital Signs Temp 99.0 F 04/26/23 04:45 Pulse 79 04/26/23 13:15 Resp 16 04/26/23 13:15 BP 163/82 04/26/23 13:15 Pulse Ox 91 04/26/23 13:15 O2 Del Method Nasal Cannula 04/26/23 08:00 O2 Flow Rate 3 04/26/23 08:00 04/25/23 04/26/23 04/26/23 22:59 06:59 14:59 Intake Total 3964.327 / 4131.160 1267.5 / 5398.660 810 / 810 Output Total 150 / 150 350 / 500 350 / 350 Balance 3814.327 / 3981.160 917.5 / 4898.660 460 / 460 Weight last 48 hrs Weight 222 lb 10.67 oz Weight 222 lb 10.67 oz Weight 218 lb 4.122 oz Weight 215 lb Physical Exam 2 Narrative: Examination left upper extremity: Examination left upper extremity patient's dorsal hand has noticeable swelling and pitting edema that is showed some mild improvement from yesterday's examination, there is no palpable fluctuance noted there is some resolution of patient's erythema on the dorsum of the hand into the dorsal wrist still has some tenderness to palpation, hand and wrist compartments of the lower forearm as well as upper arm are soft and compressible. He has pain with wrist range of motion but is able to tolerate gentle micro range of motion. He has decreased range of motion of his fingers secondary to pain and swelling. No pain out of proportion with passive range of motion of the fingers. He has a small punctate wound on his thenar eminence on the left thumb that does not appear correlating to the cellulitis with no tracking proximally from this area he is able to flex and extend his finger he has no signs of compartment syndrome within the hand. No pain over this area. Sensations intact light touch distally, hand is warm well-perfused. No tenderness to palpation of the A1 pulleys no signs of flexor tenosynovitis of the left hand digits Examination of the right upper extremity: Patient currently has IV in place on the volar proximal forearm/AC fossa patient right upper extremity has compartments that are soft and compressible does appear to have tenderness to palpation diffusely about the elbow he has some pain with end ranges of motions able to tolerate gentle flexion extension with no pain or discomfort. No signs of septic elbow noted tenderness palpation over the posterior lateral aspect of the elbow over cellulitic changes with mild erythema noted no palpable fluctuance noted throughout the right elbow and no drainable or collection fluid on the olecranon bursa. Urinary Catheter Management: Rodriguez: Cath Placed During This Visit: yes Reason for Continuing Indwelling Catheter: Accurate Measurement of Urinary Output in Critically Ill Patients Urinary Catheter Date of Insertion: 04/25/23 Urinary Catheter Time of Insertion: 11:41 Data 04/26/23 16:43 04/26/23 16:43 Micro: Microbiology 04/25/23 17:41 Bacterial Antigens - Final Urine Kidney 04/25/23 10:15 Blood Culture - Preliminary Blood NEGATIVE TO DATE 04/25/23 09:22 Blood Culture - Preliminary Blood NEGATIVE TO DATE Other CT: Radiologist's impression: CT/CT elbow RT wo con* [id number] IMPRESSION: 1. No evidence of joint effusion or irregular osseous erosions/secondary sequela of septic arthritis. 2. Subcutaneous edema along the posterolateral elbow. CT/CT hand LT w con [id number] IMPRESSION: Diffuse cellulitis with extensive soft tissue edema with no abscesses or collections noted. A&P Assessment and plan (1) Cellulitis of left hand: (2) Cellulitis of right elbow: Plan Nonoperative management at this time continued compressive Duong wrap sleeve which was applied Wrist brace applied to left wrist Encourage strict elevation and ice as needed X-rays reviewed Labs reviewed IV antibiotics per primary Orthopedics will continue to follow -CT scan of the right elbow reviewed, CT scan left hand reviewed and demonstrate no appreciable abscess or any drainable fluid collection that would require surgical intervention. Patient clinically does have some mild improvement of his left hand cellulitis with improvement in erythema as well as mild improvement in his pitting edema with his hand. He does have cellulitic changes apparent on his right elbow now at this time. Once again clinically there is no palpable fluctuance or clinically drainable abscess noted clinically and also nothing noted on CT scan for the left hand or right elbow. At this point would recommend continued conservative management and treatment for upper extremity cellulitis. No surgical intervention at this time. Will reevaluate patient tomorrow. Attestations 2 Medical Necessity Statement*: Continued required hospitalization secondary to patient being treated for bilateral upper extremity cellulitis. Coding Level of Care Code [facility] Cellulitis of left hand L03.114 Cellulitis of right elbow L03.113 Time Spent (min) 25
[2023-04-26] MEDS: ipratropium-albuterol 3 mL Neb INHALATION ×2 (14:21→19:48)
[2023-04-26 17:08] LABS: Hematocrit 23.5 % (37-53)
[2023-04-26 17:11] LABS: Glucose Point of Care 111 mg/dL (70-110)
[2023-04-26 17:48] LABS: Anion Gap 17.1 (5-19); Blood Urea Nitrogen 63 mg/dL (8-23); Calcium 9.2 mg/dL (8.5-10.5); Carbon Dioxide 17 mmol/L (22-29); Chloride 99 mmol/L (98-107); Glomerular Filtration Rate 16.2 mL/min (90-130); Glucose 99 mg/dL (65-115); Osmolality Calculated 286 mOsm/kg (285-295); Potassium 4.1 mmol/L (3.5-5.1); Sodium 129 mmol/L (136-145)
[2023-04-26 17:53] LABS: NT Pro B Type Natriuretic Pept 6489 pg/mL (0-125)
--- NOTE | 2023-04-26 18:04 | XRR_ITS ---
PROCEDURE INFORMATION: Exam: XR Chest Exam date and time: 04/26/2023 8:25 PM Age: 62 years old Clinical indication: Shortness of breath; Additional info: SOB TECHNIQUE: Imaging protocol: Radiologic exam of the chest. Views: 1 view. COMPARISON: CT angio chest w abd pel w con 04/25/2023 5:52 PM FINDINGS: Lungs: Increased interstitial markings with peribronchial cuffing in the lung bases are nonspecific but can be seen the setting of bronchitis, viral infection and small-vessel airways disease. No focal consolidation. Pleural spaces: Unremarkable. No pleural effusion. No pneumothorax. Heart/Mediastinum: Unremarkable. No cardiomegaly. Bones/joints: Unremarkable. XR/XR chest 1V portable [id number] IMPRESSION: 1. Increased interstitial markings with peribronchial cuffing in the lung bases are nonspecific but can be seen the setting of bronchitis, viral infection and small-vessel airways disease. 2. No focal consolidation.
--- NOTE | 2023-04-26 18:54 | P.CONIM_ITS ---
Providers/Reason For Consult 2 Consulting Physician/Specialty*: [facility]/Nephrology Reason for Consult*: Acute on CKD Attending Physician: Modesto Barahona MD Primary Care Provider: Pam Diaz MD History of Present Illness History of Present Illness Wayne Aguilar is a 62 year old male 62-year-old male with past medical history of atrial fibrillation with rapid ventricular response, hypertension , diabetes type 2, history of bilateral total diabetic wounds, peripheral neuropathy, dyslipidemia is admitted to the hospital on 04/25/2023 due to generalized weakness and fall. In the ER patient was noted to be septic with the tachycardia, high fevers and rapid A-fib. . lab data was significant for hemoglobin of 9.0, sodium of 128 and creatinine of 2.2 on presentation. Patient's creatinine has gotten worse to 3.8 currently and has became oliguric. He is currently on 2 L nasal cannula. Patient has known history of CKD and follows with nephrology as outpatient. Review of prior labs show prior creatinines were in the mid 1 range. Review of Systems 2 Narrative: Review of systems negative Medications/Allergies Home Medications Medication Instructions Recorded Confirmed Last Taken Type cholecalciferol (vitamin D3) 25 50 mcg PO QAM 12/02/19 04/25/23 03/21/23 History mcg (1,000 unit) tablet polyethylene glycol 3350 17 gram 17 g PO DAILY 12/02/19 04/25/23 12/02/19 History oral powder packet (Miralax) Diabetic Shoes with 3 sets of #1 ea 05/10/20 04/25/23 Unknown Rx inserts nitroglycerin 0.4 mg sublingual 0.4 mg sublingual Q5M PRN chest 10/21/20 04/25/23 Unknown Rx tablet pain #25 tabs aspirin 81 mg tablet,delayed 81 mg PO QAM 30 days #30 tabs 03/03/21 04/25/23 03/21/23 Rx release ([place] Low Dose Aspirin) blood pressure monitor (Blood #1 ea 03/03/21 04/25/23 Unknown Rx Pressure Kit) atorvastatin 40 mg tablet (Lipitor) 80 mg PO BEDTIME 11/14/21 04/25/23 03/21/23 History vitamin B complex-vitamin C-folic 1 tab PO DAILY 11/20/21 04/25/23 03/21/23 History acid 1 mg tablet carbon fiber [place] bilaterally- #1 ea 02/26/22 04/25/23 Unknown Rx AFO Custom Molded Accomodative #1 ea 05/11/22 04/25/23 Unknown Rx Orthotics and Diabetic Shoes insulin glargine 100 unit/mL (3 18 unit SUBCUT BEDTIME 06/20/22 04/25/23 03/20/23 History mL) subcutaneous pen (Lantus Solostar U-100 Insulin) AFO to right #1 ea 07/18/22 04/25/23 Unknown Rx acetaminophen 500 mg tablet 1,500 mg PO QAM 12/19/22 04/25/23 03/22/23 04:00 History amlodipine 10 mg tablet 10 mg PO QAM 12/19/22 04/25/23 03/21/23 08:00 History carboxymethylcellulose sodium 0.5 2 drp ophthalmic (eye) TID PRN 12/19/22 04/25/23 03/20/23 History % eye drops redness clopidogrel 75 mg tablet 75 mg PO QAM 12/19/22 04/25/23 03/20/23 History docusate sodium 100 mg capsule 200 mg PO BID 12/19/22 04/25/23 03/20/23 History (Colace) ferrous sulfate 325 mg (65 mg 325 mg PO QAM 12/19/22 04/25/23 03/21/23 History iron) tablet (iron) glucose 4 gram chewable tablet 4 g PO Q15M PRN for low blood sugar 12/19/22 04/25/23 Unknown History insulin aspart U-100 100 unit/mL 4 unit SUBCUT TID 12/19/22 04/25/23 03/18/23 History (3 mL) subcutaneous pen lidocaine 5 % topical patch 1 patch topical DAILY PRN Pain 12/19/22 04/25/23 Unknown History metoprolol succinate 50 mg 75 mg PO DAILY 12/19/22 04/25/23 03/20/23 History tablet,extended release 24 hr omega-3 fatty acids 1,000 mg 2,000 mg PO BID 12/19/22 04/25/23 03/20/23 History capsule oxycodone 5 mg tablet 5 mg PO Q4H PRN pain #10 tabs 12/19/22 04/25/23 Unknown Rx semaglutide 1 mg/dose (2 mg/1.5 1 mg SUBCUT Q7D 12/19/22 04/25/23 03/17/23 History mL) subcutaneous pen injector sildenafil 100 mg tablet 100 mg PO .EVERY 5 DAYS PRN 12/19/22 04/25/23 Unknown History Erectile Dysfunction tadalafil 20 mg tablet 20 mg PO DAILY PRN Erectile 12/19/22 04/25/23 Unknown History Dysfunction Bedside commode #1 ea 03/22/23 04/25/23 Unknown Rx Shower chair #1 ea 03/22/23 04/25/23 Unknown Rx Wheelchair with elevated foot rest #1 ea 03/22/23 04/25/23 Unknown Rx Walker #1 ea 04/17/23 04/25/23 Unknown Rx alprostadil 10 mcg intracavernosal See Rx Instructions .Route .COMPLEX 04/25/23 04/25/23 Unknown History kit hydrochlorothiazide 25 mg tablet 12.5 mg PO DAILY 04/25/23 04/25/23 Unknown History pantoprazole 40 mg tablet,delayed 40 mg PO BID 04/25/23 04/25/23 Unknown History release tramadol 50 mg tablet 50 mg PO Q4H PRN pain 04/25/23 04/25/23 Unknown History Allergies Allergy/AdvReac Type Severity Reaction Status Date / Time No Known Allergies Allergy Verified 04/25/23 09:12 Current Medications Generic Name Dose Route Start Last Admin Trade Name Freq PRN Reason Stop Dose Admin Hydrocodone Bitart/Acetaminophen 1 tab 04/25/23 15:28 04/26/23 02:29 Hydrocodone-Acetaminophen 5-325 Mg Tablet PO 1 tab Q6H PRN Administration MODERATE TO SEVERE PAIN Albuterol/Ipratropium 3 ml 04/26/23 14:00 04/26/23 14:21 Ipratropium-Albuterol 3 Ml Neb INHALATION 3 ml Q6H.RESP JEREL Administration Atorvastatin Calcium 80 mg 04/25/23 21:00 04/25/23 20:51 Atorvastatin 40 Mg Tablet PO 80 mg BEDTIME JEREL Administration Clopidogrel Bisulfate 75 mg 04/26/23 06:00 04/26/23 05:04 Clopidogrel 75 Mg Tablet PO 75 mg QAM JEREL Administration Ferrous Sulfate 325 mg 04/26/23 06:00 04/26/23 05:04 Ferrous Sulfate Ec 325 Mg Tablet PO 325 mg QAM JEREL Administration Heparin Sodium (Porcine) 5,000 unit 04/25/23 15:30 04/26/23 16:17 Heparin 5,000 Unit/Ml Inj 1 Ml SUBCUT 5,000 unit Q12H JEREL Administration Piperacillin Sod/Tazobactam 50 mls @ 12.5 mls/hr 04/25/23 16:00 04/26/23 16:17 Sod 3.375 gm/ Sodium Chloride IV 12.5 mls/hr Q8H JEREL Administration Protocol Vancomycin/PEG/NADA/Lysine/Water 1,500 mg in 300 mls @ 200 mls/hr 04/26/23 08:00 04/26/23 09:22 Vancocin IV Infused Q24H JEREL Infusion Iron Sucrose 200 mg/ Sodium 110 mls @ 220 mls/hr 04/26/23 09:45 04/26/23 13:09 Chloride IV 04/30/23 10:14 Infused Q24H JEREL Infusion Insulin Human Lispro 0 unit 04/25/23 18:00 04/26/23 17:00 Insulin Lispro 100 Unit/1 Ml SUBCUT Not Given [facility] Protocol Magnesium Hydroxide 30 ml 04/25/23 15:28 04/25/23 22:51 Magnesium Hydroxide 30 Ml Udc PO 30 ml DAILY PRN Administration Constipation (see protocol) Protocol Metoprolol Tartrate 50 mg 04/25/23 21:00 04/26/23 08:42 Metoprolol Tartrate 50 Mg Tablet PO 50 mg BID@0900,2100 JEREL Administration Morphine Sulfate 2 mg 04/25/23 14:26 04/26/23 08:41 Morphine 4 Mg/Ml Sdv 1 Ml IVP 2 mg Q4H PRN Administration SEVERE PAIN Pantoprazole Sodium 40 mg 04/25/23 15:30 04/26/23 16:17 Pantoprazole 40 Mg Sdv IVP 40 mg Q12H JEREL Administration PFSH Acute 2 PFSH: Medical History (Updated 04/26/23 @ 19:25 by Lisseth Miles MD) Non-pressure chronic ulcer of other part of right foot with fat layer exposed Diabetic peripheral neuropathy associated with type 2 diabetes mellitus Non-pressure chronic ulcer of other part of right foot limited to breakdown of skin Stroke Lumbar paraspinal muscle spasm Glenohumeral arthritis Lumbar disc disease with radiculopathy 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 Pain management contract signed 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 Degenerative lumbar disc Hyperlipidemia Hypertension Diabetes mellitus Surgical History Hx of appendectomy Hx of foot surgery Hx of cholecystectomy Family History Denies family history of Anesthesia complication Social History Smoking and tobacco/nicotine status: never used tobacco/nicotine Alcohol intake: never Substance/Drug Use: never Caregiver/support person: Yes Lives independently: Yes Vitals/I&O/Wt Last Vital Signs Temp 99.0 F 04/26/23 04:45 Pulse 105 H 04/26/23 18:00 Resp 14 04/26/23 18:00 BP 152/100 04/26/23 18:00 Pulse Ox 90 04/26/23 18:00 O2 Del Method Nasal Cannula 04/26/23 14:24 O2 Flow Rate 3 04/26/23 14:24 04/26/23 04/26/23 04/26/23 06:59 14:59 22:59 Intake Total 1267.5 / 5398.660 1810 / 1810 500 / 2310 Output Total 350 / 500 350 / 350 350 / 700 Balance 917.5 / 4898.660 1460 / 1460 150 / 1610 Weight last 48 hrs Weight 101 kg Weight 101 kg Weight 99 kg Weight 97.522 kg Physical Exam 2 Narrative: Patient is awake alert, no acute distress on 2 L nasal cannula Lungs clear per report No edema Urinary Catheter Management: Rodriguez: Cath Placed During This Visit: yes Reason for Continuing Indwelling Catheter: Accurate Measurement of Urinary Output in Critically Ill Patients Urinary Catheter Date of Insertion: 04/25/23 Urinary Catheter Time of Insertion: 11:41 Data 04/26/23 16:43 04/26/23 16:43 Micro: Microbiology 04/25/23 17:41 Bacterial Antigens - Final Urine Kidney 04/25/23 10:15 Blood Culture - Preliminary Blood NEGATIVE TO DATE 04/25/23 09:22 Blood Culture - Preliminary Blood NEGATIVE TO DATE A&P Assessment and plan (1) Acute on chronic renal failure: 1. Acute on chronic kidney disease: Prior baseline creatinines in the mid 1 range. Now presented with a creatinine of 2.2 worsened to 3.8 currently and he became oliguric. Currently on 2 L nasal cannula, electrolytes stable. No acute indication for renal replacement therapy currently. But if renal function continues to get worse may require temporary hemodialysis. Also patient received contrast on 04/25 and renal function likely may get worse. -Continue to monitor renal function closely for now, added IV albumin, -No obstruction on imaging. 2. Hyponatremia: Mild, monitor 3. Metabolic acidosis: Add Bicitra, 4. Anemia: Hemoglobin 7.2, recommend transfusion if hemoglobin drops less than 7 5. Sepsis, has cellulitis of left hand Ortho following on broad-spectrum antibiotics-with IV Vanco and Zosyn Patient evaluated using audiovisual cart. Time spent 40 minutes Consult Attestations 2 Medical Necessity Statement: per beltran Coding Level of Care Code Acute Code for [facility] Diagnoses Acute on chronic renal failure N17.9; N18.9
[2023-04-26] MEDS: budesonide 0.5 mg/2 mL Neb INHALATION (19:48)
[2023-04-26] MEDS: ondansetron 2 mg/ML SDV 2 mL 4 MG IVP (19:52)
[2023-04-26] MEDS: albumin 25 G/100 ML BAG 60 G IV (19:55)
[2023-04-26] MEDS: sodium bicarbonate 650 mg Tablet PO (21:06)
[2023-04-26] MEDS: atorvastatin 40 mg Tablet 80 MG PO (21:07)
[2023-04-26] MEDS: insulin glargine 100 units/1 mL 15 UNIT SUBCUT (21:09)
[2023-04-26 21:13] LABS: Glucose Point of Care 171 mg/dL (70-110)
[2023-04-26] MEDS: TRAMadol 50 mg Tablet PO (22:05)
[2023-04-27] VITALS (36 sets, daily range): BP systolic 129–199; BP diastolic 70–109; PULSE 73–129; RESP 8–28; TEMP 30.5–36.6; O2SAT 87–100; BMI 33.8
[2023-04-27] MEDS: ipratropium-albuterol 3 mL Neb INHALATION ×4 (01:51→19:43)
[2023-04-27] MEDS: ondansetron 2 mg/ML SDV 2 mL 4 MG IVP (03:54)
[2023-04-27] MEDS: morphine 4 mg/mL SDV 1 mL 2 MG IVP ×3 (03:54→17:08)
[2023-04-27] MEDS: pantoprazole 40 mg SDV IVP ×2 (03:57→17:07)
[2023-04-27] MEDS: albumin 25 G/100 ML BAG 60 G IV ×3 (04:00→20:07)
[2023-04-27] MEDS: heparin 5,000 unit/mL INJ 1 mL 5000 UNIT SUBCUT ×2 (04:00→17:07)
[2023-04-27] MEDS: metoprolol tartrate 1 mg/1 mL SDV 5 mL 5 MG IVP ×3 (05:02→21:52)
[2023-04-27 05:10] LABS: Basophils % 0.4 %; Eosinophils # 0.1 10^3/uL (0.0-0.8); Eosinophils % 1.1 %; Lymphocytes # 0.6 10^3/uL (0.8-4.8); Lymphocytes % 10.2 %; Mean Corpuscular HGB Conc 32.3 g/dL (30-55); Mean Corpuscular Hemoglobin 32.4 pg (27-33); Mean Corpuscular Volume 100.5 fl (82-101); Mean Platelet Volume 10.4 fL (7.4-10.4); Monocytes # 0.5 10^3/uL (0.2-0.9); Monocytes % 8.9 %; Neutrophils # 4.34 10^3/uL (1.8-7.7); Neutrophils % 79.2 %; Nucleated Red Blood Cells % 0 %; Platelet Count 163 10^3/cmm (157-399); Red Blood Count 2.19 10^6/uL (3.85-5.65); Red Cell Distribution Width 13.5 % (12.1-15.1); White Blood Count 5.48 10^3/uL (3.29-11.43)
[2023-04-27 05:34] LABS: Alanine Aminotransferase 28 U/L (0-41); Albumin Level 2.8 g/dL (3.5-5.2); Alkaline Phosphatase 87 U/L (40-130); Anion Gap 20.1 (5-19); Aspartate Amino Transferase 37 U/L (0-40); Blood Urea Nitrogen 70 mg/dL (8-23); Carbon Dioxide 17 mmol/L (22-29); Chloride 99 mmol/L (98-107); Globulin 4.6 g/dL (1.3-4.6); Glomerular Filtration Rate 10.8 mL/min (90-130); Glucose 93 mg/dL (65-115); Osmolality Calculated 294 mOsm/kg (285-295); Potassium 4.1 mmol/L (3.5-5.1); Sodium 132 mmol/L (136-145); Total Bilirubin 0.5 mg/dL (0.15-1.2); Total Protein 7.4 g/dL (6.6-8.7)
[2023-04-27] MEDS: ferrous sulfate EC 325 mg Tablet PO (05:48)
[2023-04-27] MEDS: TRAMadol 50 mg Tablet PO ×2 (05:48→20:34)
[2023-04-27] MEDS: clopidogrel 75 mg Tablet PO (05:49)
[2023-04-27 07:25] LABS: Glucose Point of Care 92 mg/dL (70-110)
[2023-04-27] MEDS: piperacillin-tazobactam 3.375 GM in sodium chloride 0.9% (plus) 50 ML IV ×2 (09:01→17:09)
[2023-04-27] MEDS: vancomycin 1,500 MG/300 ML PIGGYBACK 200 MG IV (09:01)
[2023-04-27] MEDS: budesonide 0.5 mg/2 mL Neb INHALATION ×2 (09:16→19:43)
[2023-04-27] MEDS: metoprolol tartrate 50 mg Tablet PO ×2 (09:27→20:35)
[2023-04-27] MEDS: sodium bicarbonate 650 mg Tablet PO ×3 (09:27→20:35)
--- NOTE | 2023-04-27 09:58 | P.CONIM_ITS ---
Providers/Reason For Consult 2 Consulting Physician/Specialty*: General surgery Reason for Consult*: Need for temporarily dialysis catheter Attending Physician: Modesto Barahona MD Primary Care Provider: Pam Diaz MD History of Present Illness History of Present Illness Wayne Aguilar is a 62 year old male who presented to the hospital with left hand cellulitis and foot was found to have acute on chronic kidney injury. His creatinine has been trending up up to the level of 5 today. After discussion with nephrology decision has been made that the patient will benefit from dialysis. I have been consulted for dialysis catheter placement. Medications/Allergies Home Medications Medication Instructions Recorded Confirmed Last Taken Type cholecalciferol (vitamin D3) 25 50 mcg PO QAM 12/02/19 04/25/23 03/21/23 History mcg (1,000 unit) tablet polyethylene glycol 3350 17 gram 17 g PO DAILY 12/02/19 04/25/23 12/02/19 History oral powder packet (Miralax) Diabetic Shoes with 3 sets of #1 ea 05/10/20 04/25/23 Unknown Rx inserts nitroglycerin 0.4 mg sublingual 0.4 mg sublingual Q5M PRN chest 10/21/20 04/25/23 Unknown Rx tablet pain #25 tabs aspirin 81 mg tablet,delayed 81 mg PO QAM 30 days #30 tabs 03/03/21 04/25/23 03/21/23 Rx release ([place] Low Dose Aspirin) blood pressure monitor (Blood #1 ea 03/03/21 04/25/23 Unknown Rx Pressure Kit) atorvastatin 40 mg tablet (Lipitor) 80 mg PO BEDTIME 11/14/21 04/25/23 03/21/23 History vitamin B complex-vitamin C-folic 1 tab PO DAILY 11/20/21 04/25/23 03/21/23 History acid 1 mg tablet carbon fiber [place] bilaterally- #1 ea 02/26/22 04/25/23 Unknown Rx AFO Custom Molded Accomodative #1 ea 05/11/22 04/25/23 Unknown Rx Orthotics and Diabetic Shoes insulin glargine 100 unit/mL (3 18 unit SUBCUT BEDTIME 06/20/22 04/25/23 03/20/23 History mL) subcutaneous pen (Lantus Solostar U-100 Insulin) AFO to right #1 ea 07/18/22 04/25/23 Unknown Rx acetaminophen 500 mg tablet 1,500 mg PO QAM 12/19/22 04/25/23 03/22/23 04:00 History amlodipine 10 mg tablet 10 mg PO QAM 12/19/22 04/25/23 03/21/23 08:00 History carboxymethylcellulose sodium 0.5 2 drp ophthalmic (eye) TID PRN 12/19/22 04/25/23 03/20/23 History % eye drops redness clopidogrel 75 mg tablet 75 mg PO QAM 12/19/22 04/25/23 03/20/23 History docusate sodium 100 mg capsule 200 mg PO BID 12/19/22 04/25/23 03/20/23 History (Colace) ferrous sulfate 325 mg (65 mg 325 mg PO QAM 12/19/22 04/25/23 03/21/23 History iron) tablet (iron) glucose 4 gram chewable tablet 4 g PO Q15M PRN for low blood sugar 12/19/22 04/25/23 Unknown History insulin aspart U-100 100 unit/mL 4 unit SUBCUT TID 12/19/22 04/25/23 03/18/23 History (3 mL) subcutaneous pen lidocaine 5 % topical patch 1 patch topical DAILY PRN Pain 12/19/22 04/25/23 Unknown History metoprolol succinate 50 mg 75 mg PO DAILY 12/19/22 04/25/23 03/20/23 History tablet,extended release 24 hr omega-3 fatty acids 1,000 mg 2,000 mg PO BID 12/19/22 04/25/23 03/20/23 History capsule oxycodone 5 mg tablet 5 mg PO Q4H PRN pain #10 tabs 12/19/22 04/25/23 Unknown Rx semaglutide 1 mg/dose (2 mg/1.5 1 mg SUBCUT Q7D 12/19/22 04/25/23 03/17/23 History mL) subcutaneous pen injector sildenafil 100 mg tablet 100 mg PO .EVERY 5 DAYS PRN 12/19/22 04/25/23 Unknown History Erectile Dysfunction tadalafil 20 mg tablet 20 mg PO DAILY PRN Erectile 12/19/22 04/25/23 Unknown History Dysfunction Bedside commode #1 ea 03/22/23 04/25/23 Unknown Rx Shower chair #1 ea 03/22/23 04/25/23 Unknown Rx Wheelchair with elevated foot rest #1 ea 03/22/23 04/25/23 Unknown Rx Walker #1 ea 04/17/23 04/25/23 Unknown Rx alprostadil 10 mcg intracavernosal See Rx Instructions .Route .COMPLEX 04/25/23 04/25/23 Unknown History kit hydrochlorothiazide 25 mg tablet 12.5 mg PO DAILY 04/25/23 04/25/23 Unknown History pantoprazole 40 mg tablet,delayed 40 mg PO BID 04/25/23 04/25/23 Unknown History release tramadol 50 mg tablet 50 mg PO Q4H PRN pain 04/25/23 04/25/23 Unknown History Allergies Allergy/AdvReac Type Severity Reaction Status Date / Time No Known Allergies Allergy Verified 04/25/23 09:12 Current Medications Generic Name Dose Route Start Last Admin Trade Name Freq PRN Reason Stop Dose Admin Hydrocodone Bitart/Acetaminophen 1 tab 04/25/23 15:28 04/26/23 02:29 Hydrocodone-Acetaminophen 5-325 Mg Tablet PO 1 tab Q6H PRN Administration MODERATE TO SEVERE PAIN Albuterol/Ipratropium 3 ml 04/26/23 14:00 04/27/23 09:16 Ipratropium-Albuterol 3 Ml Neb INHALATION 3 ml Q6H.RESP JEREL Administration Atorvastatin Calcium 80 mg 04/25/23 21:00 04/26/23 21:07 Atorvastatin 40 Mg Tablet PO 80 mg BEDTIME JEREL Administration Budesonide 0.5 mg 04/26/23 20:00 04/27/23 09:16 Budesonide 0.5 Mg/2 Ml Neb INHALATION 0.5 mg BID.RESPIRATORY JEREL Administration Clopidogrel Bisulfate 75 mg 04/26/23 06:00 04/27/23 05:49 Clopidogrel 75 Mg Tablet PO 75 mg QAM JEREL Administration Ferrous Sulfate 325 mg 04/26/23 06:00 04/27/23 05:48 Ferrous Sulfate Ec 325 Mg Tablet PO 325 mg QAM JEREL Administration Heparin Sodium (Porcine) 5,000 unit 04/25/23 15:30 04/27/23 04:00 Heparin 5,000 Unit/Ml Inj 1 Ml SUBCUT 5,000 unit Q12H JEREL Administration Piperacillin Sod/Tazobactam 50 mls @ 12.5 mls/hr 04/25/23 16:00 04/27/23 09:01 Sod 3.375 gm/ Sodium Chloride IV 12.5 mls/hr Q8H JEREL Administration Protocol Vancomycin/PEG/NADA/Lysine/Water 1,500 mg in 300 mls @ 200 mls/hr 04/26/23 08:00 04/27/23 09:01 Vancocin IV 200 mls/hr Q24H JEREL Administration Iron Sucrose 200 mg/ Sodium 110 mls @ 220 mls/hr 04/26/23 09:45 04/26/23 13:09 Chloride IV 04/30/23 10:14 Infused Q24H JEREL Infusion Albumin Human 25 g in 100 mls @ 60 mls/hr 04/26/23 19:00 04/27/23 07:07 Albumin IV Infused Q8H JEREL Infusion Insulin Glargine 15 unit 04/26/23 21:00 04/26/23 21:09 Insulin Glargine 100 Units/1 Ml SUBCUT 15 unit BEDTIME JEREL Administration Insulin Human Lispro 0 unit 04/25/23 18:00 04/27/23 09:25 Insulin Lispro 100 Unit/1 Ml SUBCUT Not Given WM&BEDTIME JEREL Protocol Magnesium Hydroxide 30 ml 04/25/23 15:28 04/25/23 22:51 Magnesium Hydroxide 30 Ml Udc PO 30 ml DAILY PRN Administration Constipation (see protocol) Protocol Metoprolol Tartrate 50 mg 04/25/23 21:00 04/27/23 09:27 Metoprolol Tartrate 50 Mg Tablet PO 50 mg BID@0900,2100 [facility] Administration Metoprolol Tartrate 5 mg 04/25/23 17:49 04/27/23 05:02 Metoprolol Tartrate 1 Mg/1 Ml Sdv 5 Ml IVP 5 mg Q4H PRN Administration For HR more than 110 bpm Morphine Sulfate 2 mg 04/25/23 14:26 04/27/23 03:54 Morphine 4 Mg/Ml Sdv 1 Ml IVP 2 mg Q4H PRN Administration SEVERE PAIN Ondansetron HCl 4 mg 04/25/23 14:26 04/27/23 03:54 Ondansetron 2 Mg/Ml Sdv 2 Ml IVP 4 mg Q6H PRN Administration NAUSEA AND VOMITING Pantoprazole Sodium 40 mg 04/25/23 15:30 04/27/23 03:57 Pantoprazole 40 Mg Sdv IVP 40 mg Q12H JEREL Administration Sodium Bicarbonate 650 mg 04/26/23 21:00 04/27/23 09:27 Sodium Bicarbonate 650 Mg Tablet PO 650 mg TID JEREL Administration Tramadol HCl 50 mg 04/26/23 10:54 04/27/23 05:48 Tramadol 50 Mg Tablet PO 50 mg Q6H PRN Administration MODERATE PAIN PFSH Acute 2 PFSH: Medical History (Updated 04/26/23 @ 22:48 by Anoop Vora DO) Non-pressure chronic ulcer of other part of right foot with fat layer exposed Diabetic peripheral neuropathy associated with type 2 diabetes mellitus Non-pressure chronic ulcer of other part of right foot limited to breakdown of skin Stroke Lumbar paraspinal muscle spasm Glenohumeral arthritis Lumbar disc disease with radiculopathy 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 Pain management contract signed 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 Degenerative lumbar disc Hyperlipidemia Hypertension Diabetes mellitus Surgical History Hx of appendectomy Hx of foot surgery Hx of cholecystectomy Family History Denies family history of Anesthesia complication Social History Smoking and tobacco/nicotine status: never used tobacco/nicotine Alcohol intake: never Substance/Drug Use: never Caregiver/support person: Yes Lives independently: Yes Vitals/I&O/Wt Last Vital Signs Temp 97.2 F L 04/27/23 02:00 Pulse 76 04/27/23 09:23 Resp 16 04/27/23 09:00 BP 167/95 04/27/23 06:00 Pulse Ox 96 04/27/23 09:00 O2 Del Method Nasal Cannula 04/27/23 09:00 O2 Flow Rate 2 04/27/23 09:00 04/26/23 04/27/23 04/27/23 22:59 06:59 14:59 Intake Total 1130 / 2940 240 / 3180 150 / 150 Output Total 350 / 700 100 / 800 Balance 780 / 2240 140 / 2380 150 / 150 Weight last 48 hrs Weight 229 lb 4.492 oz Weight 222 lb 10.67 oz Weight 222 lb 10.67 oz Weight 218 lb 4.122 oz Physical Exam 2 Narrative: General : Patient is well developed , no acute distress, oriented x3 Head : Normal cephalic, a-traumatic. Nose : Mucous membranes are without erythema. Lungs : Equal chest rise bilaterally, no use of accessory muscles, trachea is midline. CV : Rate and rhythm are normal. Abdomen : Soft, ND, NT, no g/r/m Extremities : Minimal bilateral lower extremity erythema, there is left upper extremity Duong bandage wrap Back : non-tender to palpation, no CVA tenderness. Urinary Catheter Management: Rodriguez: Cath Placed During This Visit: yes Reason for Continuing Indwelling Catheter: Accurate Measurement of Urinary Output in Critically Ill Patients Urinary Catheter Date of Insertion: 04/25/23 Urinary Catheter Time of Insertion: 11:41 Data 04/27/23 03:49 04/27/23 03:49 Micro: Microbiology 04/25/23 17:41 Bacterial Antigens - Final Urine Kidney 04/25/23 10:15 Blood Culture - Preliminary Blood NEGATIVE TO DATE 04/25/23 09:22 Blood Culture - Preliminary Blood NEGATIVE TO DATE A&P Assessment and plan (1) Acute on chronic renal failure: Plan 62-year-old male with acute on chronic kidney injury, I have been consulted for dialysis catheter placement after discussion of all risk and benefits including the risk of injury to surrounding structures, pneumothorax if we choose to do a right IJ catheter, hematoma, catheter nonfunction, infection, perforation of the great vessels requiring surgery, ongoing bleeding. The patient has decided to proceed with the operation. I will do a bedside dialysis catheter placement today. Coding Level of Care Code Acute Code for Chg Fwd Diagnoses Acute on chronic renal failure N17.9; N18.9
[2023-04-27] MEDS: iron sucrose 200 MG in sodium chloride 0.9% (100 ml) 100 ML 220 MG IV (10:46)
[2023-04-27 12:24] LABS: Hepatitis B Surface AB < 3.5 (11.5-1000); Hepatitis B Surface Antigen Non-Reactive (Nonreactive)
--- NOTE | 2023-04-27 12:47 | P.PN_ITS ---
Subjective 2 Subjective: Patient seen and examined this morning. He continues to have worsening kidney function and talk with hospitalist and patient's getting set up for dialysis today. Clinically his cellulitis does not seem to be worsening and is stabilized he still has some edema in his left hand the erythema appears to have some improvement but he still complaining of pain at the right elbow and left hand. Once again reviewed with patient as well as reviewed the CT scans myself and do not appreciate any type of abscess or fluid accumulation. He is currently on IV antibiotics empirically. I readjusted his compression sleeve and got him a compressive stocking to help with graduated compression at the wrist could not do this to the right upper extremity secondary to patient having multiple IVs and dressings as well as wrist bracelets on this would not accommodate for this recommend continued elevation as well as encouragement of moving the hands and extremities to work on his fluid/edema. No signs of any compartment syndrome or any worsening signs of infection clinically to his left hand and right elbow. Spoke about this with the hospitalist today at this point in time remains consistent with diagnosis of left hand cellulitis and right elbow cellulitis. Will plan on making patient n.p.o. at midnight tonight just in case he has no improvement in the left hand. We will see how he responds with the dialysis as well as I will recheck his CRP tomorrow morning to see how he is responding to conservative treatment to his left hand. Otherwise if worsening or minimal to no improvement in his left hand we talked about possible I&D of the left dorsal hand with the patient he understands agrees with current plan. Questions answered. Be n.p.o. at midnight. Vitals/I&O/Wt Last Vital Signs Temp 97.2 F L 04/27/23 02:00 Pulse 77 04/27/23 12:00 Resp 12 04/27/23 12:00 BP 161/78 04/27/23 12:00 Pulse Ox 97 04/27/23 12:00 O2 Del Method Nasal Cannula 04/27/23 09:00 O2 Flow Rate 2 04/27/23 09:00 04/26/23 04/27/23 04/27/23 22:59 06:59 14:59 Intake Total 1130 / 2940 240 / 3180 550 / 550 Output Total 350 / 700 100 / 800 450 / 450 Balance 780 / 2240 140 / 2380 100 / 100 Weight last 48 hrs Weight 229 lb 4.492 oz Weight 229 lb 4.492 oz Weight 222 lb 10.67 oz Weight 222 lb 10.67 oz Weight 218 lb 4.122 oz Physical Exam 2 Narrative: Examination left upper extremity: Examination left upper extremity patient's dorsal hand has noticeable swelling and pitting edema that is showed minimal improvement from yesterday's examination due to incomplete compression with his Duong wrap, and a new compressive sleeve was applied today to help with graduated compression of the left hand, there is no palpable fluctuance noted there is continued resolution of patient's erythema on the dorsum of the hand into the dorsal wrist still has some tenderness to palpation, hand and wrist compartments of the lower forearm as well as upper arm are soft and compressible. No signs of compartment syndrome or any signs of worsening infection. He has pain with wrist range of motion but is able to tolerate gentle micro range of motion. He has decreased range of motion of his fingers secondary to pain and swelling. No pain out of proportion with passive range of motion of the fingers. He has a small punctate wound on his thenar eminence on the left thumb that does not appear correlating to the cellulitis with no tracking proximally from this area he is able to flex and extend his finger he has no signs of compartment syndrome within the hand. No pain over this area. Sensations intact light touch distally, hand is warm well-perfused. No tenderness to palpation of the A1 pulleys no signs of flexor tenosynovitis of the left hand digits Examination of the right upper extremity: Patient currently has IV in place on the volar proximal forearm/AC fossa patient right upper extremity has compartments that are soft and compressible does appear to have tenderness to palpation diffusely about the elbow he has some pain with end ranges of motions able to tolerate gentle flexion extension with no pain or discomfort. No signs of septic elbow noted tenderness palpation over the posterior lateral aspect of the elbow over cellulitic changes with mild erythema appears to have some improvement today, noted no palpable fluctuance noted throughout the right elbow and no drainable or collection fluid on the olecranon bursa. Urinary Catheter Management: Rodriguez: Cath Placed During This Visit: yes Reason for Continuing Indwelling Catheter: Accurate Measurement of Urinary Output in Critically Ill Patients Urinary Catheter Date of Insertion: 04/25/23 Urinary Catheter Time of Insertion: 11:41 Data 04/27/23 03:49 12/16/23 03:49 Micro: Microbiology 04/25/23 17:41 Bacterial Antigens - Final Urine Kidney 04/25/23 10:15 Blood Culture - Preliminary Blood NEGATIVE TO DATE 04/25/23 09:22 Blood Culture - Preliminary Blood NEGATIVE TO DATE A&P Assessment and plan (1) Cellulitis of left hand: (2) Cellulitis of right elbow: Plan Nonoperative management at this time continued compressive Duong wrap sleeve which was applied Wrist brace applied to left wrist Encourage strict elevation and ice as needed X-rays reviewed Labs reviewed IV antibiotics per primary Orthopedics will continue to follow -CT scan of the right elbow reviewed, CT scan left hand reviewed and demonstrate no appreciable abscess or any drainable fluid collection that would require surgical intervention. Stable clinical examination to the left hand as well as the right elbow there appears to be some improvement in the erythema with no signs of a worsening infection clinically once again this appears to be stable no signs of compartment syndrome or necrotizing fasciitis. He has had worsening per hospitalist is going to have dialysisKidney function likely today. At this point in time would recommend continued following. I replaced patient with a new compressive stocking to the left hand to hopefully help with graduated compression continued strict elevation to the bilateral upper extremities would recommend to be n.p.o. at midnight just in case of need for surgical I&D. Would recommend a recheck of his CRP early tomorrow morning to see how is responded to conservative treatment. We talked about this in detail with patient as well as the hospitalist he understands and agrees with current plan. All questions answered. Attestations 2 Medical Necessity Statement*: Continued required hospitalization secondary to patient being treated for bilateral upper extremity cellulitis. Coding Level of Care Code Acute Code for Chg Fwd Diagnoses Cellulitis of left hand L03.114 Cellulitis of right elbow L03.113 Time Spent (min) 30
--- NOTE | 2023-04-27 12:57 | XRR_ITS ---
PROCEDURE INFORMATION: Exam: XR Chest Exam date and time: 04/27/2023 2:03 PM Age: 62 years old Clinical indication: Device placement; Patient HX: RT trialysis cath placement TECHNIQUE: Imaging protocol: Radiologic exam of the chest. Views: 1 view. COMPARISON: CR (CHEST, ) 04/26/2023 8:25 PM FINDINGS: Lungs: Low lung volumes. The lungs are otherwise clear No consolidation. Pleural spaces: Unremarkable. No pleural effusion. No pneumothorax. Heart/Mediastinum: Unremarkable. No cardiomegaly. Bones/joints: Unremarkable. Right central line extends into the SVC XR/XR chest 1V portable [id number] IMPRESSION: No acute findings. Low lung volumes. Right central line is in the SVC.
--- NOTE | 2023-04-27 13:24 | PM.ACPR ---
Procedure/Consent Procedure Narrative: 63-year-old male who required dialysis. I was asked to place dialysis catheter. After discussion of risk and benefits of decided to proceed with temporal IJ dialysis catheter placement. The patient was placed in the supine position, the right side of the neck was prepped and draped in the usual sterile fashion. Timeout was conducted. The right IJ vein was identified with ultrasound and cannulated with a 18-gauge needle, a wire was advanced over the needle and the needle was removed, the position of the wire was verified with ultrasound. I then proceeded to make a cut to the level of the needle insertion site on the skin to allow for passage of the dilators. Subsequent dilations of the drug were done with dilators and then the catheter was advanced over the wire. The wire was removed, good venous return of blood was noted from both ports and the ports were flushing correctly. The line was fixed to the skin with a 2-0 silk and a sterile dressing was applied. Patient tolerated well the procedure remained in the ICU after placement of catheter.
[2023-04-27 13:47] LABS: Glucose Point of Care 107 mg/dL (70-110)
[2023-04-27] MEDS: heparin, porcine 1,000 unit/mL INJ 10 mL 1000 UNIT IV (14:30)
--- NOTE | 2023-04-27 16:34 | P.PN_ITS ---
Subjective 2 Subjective: uOP low , Medications: Reviewed: Yes Vitals/I&O/Wt Last Vital Signs Temp 97.7 F 04/27/23 15:26 Pulse 79 04/27/23 15:26 Resp 17 04/27/23 15:26 BP 159/86 04/27/23 15:26 Pulse Ox 99 04/27/23 14:00 O2 Del Method Nasal Cannula 04/27/23 13:59 O2 Flow Rate 2 04/27/23 13:59 04/27/23 04/27/23 04/27/23 06:59 14:59 22:59 Intake Total 240 / 3180 1010 / 1010 100 / 1110 Output Total 100 / 800 450 / 450 Balance 140 / 2380 560 / 560 100 / 660 Weight last 48 hrs Weight 104 kg Weight 104 kg Weight 101 kg Weight 101 kg Weight 99 kg Physical Exam 2 Narrative: Patient is awake alert, no acute distress on 2 L nasal cannula Lungs clear per report No edema Urinary Catheter Management: Rodriguez: Cath Placed During This Visit: yes Reason for Continuing Indwelling Catheter: Accurate Measurement of Urinary Output in Critically Ill Patients Urinary Catheter Date of Insertion: 04/25/23 Urinary Catheter Time of Insertion: 11:41 Data 04/27/23 03:49 04/27/23 03:49 Micro: Microbiology 04/25/23 17:41 Bacterial Antigens - Final Urine Kidney A&P Assessment and plan (1) Acute on chronic renal failure: 1. Acute on chronic kidney disease: Prior baseline creatinines in the mid 1 range. Now presented with a creatinine of 2.2 worsened to 3.8 currently and he became oliguric. - Renal fxn worse ,oluguric , and has met acidosis - plan for temprary HD catheter placement and start hD -No obstruction on imaging. 2. Hyponatremia: Mild, monitor 3. Metabolic acidosis: HD as above 4. Anemia: Hemoglobin 7.2, recommend transfusion if hemoglobin drops less than 7 5. Sepsis, has cellulitis of left hand Ortho following on broad-spectrum antibiotics-with IV Vanco and Zosyn Patient evaluated using audiovisual cart. Time spent 40 minutes Attestations 2 Medical Necessity Statement*: per medicine Coding Level of Care Code Acute Code for Chg Fwd Diagnoses Acute on chronic renal failure N17.9; N18.9
--- NOTE | 2023-04-27 16:37 | P.PN_ITS ---
Subjective 2 Subjective: No acute events overnight. Patient has remained hemodynamically stable and afebrile. Today morning seen with daughter at bedside. Patient is awake and alert but drowsy. Minimal urine output overnight. Blood work appreciated for stable anemia with hemoglobin down to 7.1, worsening renal functions. Swelling in the arm seems to be improving, patient is able to move his fingers and digits more than yesterday. Medications: Reviewed: Yes Vitals/I&O/Wt Last Vital Signs Temp 87 F L 04/27/23 16:00 Pulse 82 04/27/23 16:00 Resp 28 H 04/27/23 16:00 BP 138/104 04/27/23 16:00 Pulse Ox 96 04/27/23 15:30 O2 Del Method Nasal Cannula 04/27/23 13:59 O2 Flow Rate 2 04/27/23 13:59 04/27/23 04/27/23 04/27/23 06:59 14:59 22:59 Intake Total 240 / 3180 1010 / 1010 100 / 1110 Output Total 100 / 800 450 / 450 Balance 140 / 2380 560 / 560 100 / 660 Weight last 48 hrs Weight 104 kg Weight 104 kg Weight 101 kg Weight 101 kg Weight 99 kg Physical Exam 2 Narrative: General: No acute distress, AO x3, drowsy, sick appearing HEENT: PERRLA, pupils bilaterally equal and reactive Chest: Normal vesicular breath sounds, no added sounds, equal good air entry bilaterally CVS: S1-S2 regular, no murmurs, no tachycardia, no gallops, no rubs Abdomen: Soft, nontender, no organomegaly, bowel sounds present Neuro: No focal deficits, no facial deformity, AO x3, power 5/5 in all limbs Left arm bandaged by orthopedics, in splint. Skin: OTHER: Urinary Catheter Management: Rodriguez: Cath Placed During This Visit: yes Reason for Continuing Indwelling Catheter: Accurate Measurement of Urinary Output in Critically Ill Patients Urinary Catheter Date of Insertion: 04/25/23 Urinary Catheter Time of Insertion: 11:41 Data 04/27/23 03:49 04/27/23 03:49 Micro: Microbiology 04/25/23 17:41 Bacterial Antigens - Final Urine Kidney A&P Assessment and plan (1) Fall: (2) Sepsis: (3) Cellulitis of left hand: (4) Acute on chronic renal failure: (5) S/P dialysis catheter insertion: (6) Hyponatremia: (7) Anemia: (8) Atrial fibrillation with rapid ventricular response: (9) Hypertension: Qualifiers: Hypertension type: essential hypertension Qualified Code(s): I10 - Essential (primary) hypertension (10) Hyperlipidemia: Qualifiers: Hyperlipidemia type: mixed hyperlipidemia Qualified Code(s): E78.2 - Mixed hyperlipidemia (11) Diabetes mellitus: Qualifiers: Diabetes mellitus type: type 2 Diabetes mellitus exterminator helper insulin use: with fdc use Diabetes mellitus complication status: with other specified complication Qualified Code(s): E11.69 - Type 2 diabetes mellitus with other specified complication; Z79.4 - terminal makeup operator (current) use of insulin (12) S/P foot surgery, right: (13) Rhabdomyolysis: Plan Sepsis: Ruled in on admission given fever, leukocytosis, tachycardia. Source most likely cellulitis of the left hand, cellulitis of the foot less likely. Endorgan damage with TULIO. Follow-up blood culture, urine culture. MRSA swab pending. Patient does have swelling and erythema of the right elbow. Will plan for CT of the right elbow to rule out septic arthritis versus abscess. Cellulitis of left hand: Appreciate orthopedic recommendations. Remove splint for now. Patient's hand swollen. Elevate. Continue wound care as per surgical team. Ice pack as needed. Neurovascular checks every 6 hours. Empirically start patient on IV vancomycin and Zosyn for now. Will de-escalate as per culture sensitivities. Appreciate CT with contrast of left forearm, right foot. Without any collection in the arm. Does have fracture of the metatarsal. Podiatry on board. TULIO: Baseline creatinine up to 1.4 to 1.6. Does have baseline diabetic nephropathy. Creatinine worsening today. Urine output poor. Continue with IV fluids. 1 dose of 40 mg of IV Lasix. Check CPK. Repeat BMP in evening. CT abdomen pelvis negative for obstructive nephropathy. Appreciate urine lites. Keep Rodriguez for now. Anemia: Baseline hemoglobin seems to be 13.9 in December. Hemoglobin down to 7.2. Repeat hemoglobin in afternoon. If needed will transfuse PRBC. Check stool for occult blood. If positive we will plan for EGD and colonoscopy. Hold off on surgical Consultation for now Continue with IV Protonix twice daily. Add Carafate before meals and at bedtime. Target hemoglobin more than 7. Fall: Most likely in setting of dehydration and sepsis along with longstanding neuropathy. Monitor blood pressures. Target blood pressure less than 140/90 mmHg with mean over 65. Patient currently on oxygen. At baseline he is not on oxygen. CTA ruled out PE. Urine drug screen negative. Continue with IV fluids at 100 cc/h. PT evaluation. Post recent foot surgery: Podiatry on board. Appreciate CT of the foot. Nonweightbearing. Wound care as per podiatry team. A-fib with RVR: Resolved. Most likely in setting of dehydration and sepsis. Off Cardizem drip. Continue with metoprolol at 50 mg twice daily. Patient currently not not on anticoagulation most likely in setting of anemia. Will do further med rec to confirm. Hyponatremia: Most likely in setting of dehydration. Fluid as above. Monitor BMP daily for now. Hypoxia: Appreciate CT chest. No consolidation. No PE. Aggressive pulmonary toilet. Out of bed to chair. Oxygen supplementation keeping saturation over 90%. Pulmicort twice daily, DuoNebs every 6 hours. Hypertension: Goal blood pressure less than 140/90 mmHg. At home patient is on amlodipine 10 mg daily, metoprolol succinate 75 mg daily. Hold off on amlodipine for now. Uptitrate as for goal blood pressures. Type 2 diabetes mellitus: Appreciate A1c and improving. Decrease Lantus to 15 units daily, insulin sliding scale low-dose protocol. Carb consistent diet. Plan for the day: Appreciate podiatry and orthopedic recommendations. Splint removed yesterday. Continue with elevation of arm. Hemoglobin continues to remain low but stable. Transfuse monitor PRBC. Continue with IV iron transfusion. Heart rate controlled. Continue with oral metoprolol. Hyponatremia improving. Renal function continues to worsen with patient developing uremia. Creatinine up to 5.4. Nephrology consulted yesterday. Appreciate recommendations. Plan for temporary dialysis catheter placement and initiation of dialysis today. Patient and daughter agreeable. Will consult surgery. Blood sugar earlier today morning slightly low. Decrease Lantus further to 12 units from 15 units nightly. Change diet to renal dialysis diabetic diet. Continue with IV medications for cellulitis of the arm. Will dose antibiotics as per dialysis now. CODE STATUS: Patient's daughter would be the healthcare proxy. Full code. Renal dialysis diabetic diet Protonix will suffice as PUD prophylaxis Heparin 5000 every 12 hourly for DVT prophylaxis Admit to ICU. Attestations 2 Medical Necessity Statement*: Requires further hospitalization for management of acute renal failure requiring dialysis and temporary dialysis catheter placement, anemia requiring blood transfusion, left hand cellulitis Diagnoses Fall [id number].XXXA Sepsis A41.9 Cellulitis of left hand L03.114 Acute on chronic renal failure N17.9; N18.9 S/P dialysis catheter insertion Z95.828; Z99.2 Hyponatremia E87.1 Anemia D64.9 Atrial fibrillation with rapid ventricular response I48.91 Essential hypertension I10 Hypertension type: essential hypertension Mixed hyperlipidemia E78.2 Hyperlipidemia type: mixed hyperlipidemia Type 2 diabetes mellitus with other specified complication, with long-term current use of insulin E11.69; Z79.4 Diabetes mellitus type: type 2 Diabetes mellitus exterminator helper insulin use: with exterminator helper use Diabetes mellitus complication status: with other specified complication S/P foot surgery, right Z98.890 Rhabdomyolysis M62.82
[2023-04-27] MEDS: heparin, porcine 1,000 unit/mL INJ 10 mL 10000 UNIT INTRACATH (17:45)
[2023-04-27 18:12] LABS: Glucose Point of Care 93 mg/dL (70-110)
[2023-04-27 20:28] LABS: Glucose Point of Care 128 mg/dL (70-110)
[2023-04-27] MEDS: atorvastatin 40 mg Tablet 80 MG PO (20:34)
[2023-04-27] MEDS: insulin glargine 100 units/1 mL 12 UNIT SUBCUT (20:36)
[2023-04-27] MEDS: HYDROcodone-acetaminophen 5-325 mg Tablet 1 TAB PO (22:04)
[2023-04-28] VITALS (30 sets, daily range): BP systolic 138–183; BP diastolic 60–96; PULSE 74–101; RESP 7–21; TEMP 35.9–37.7; O2SAT 85–100
[2023-04-28] MEDS: piperacillin-tazobactam 3.375 GM in sodium chloride 0.9% (plus) 50 ML IV ×2 (00:15→07:25)
[2023-04-28] MEDS: heparin 5,000 unit/mL INJ 1 mL 5000 UNIT SUBCUT ×2 (03:03→15:00)
[2023-04-28] MEDS: albumin 25 G/100 ML BAG 60 G IV ×2 (03:03→10:42)
[2023-04-28] MEDS: pantoprazole 40 mg SDV IVP ×2 (03:03→15:00)
[2023-04-28] MEDS: HYDROcodone-acetaminophen 5-325 mg Tablet 1 TAB PO ×2 (03:16→21:01)
[2023-04-28] MEDS: bisacodyl 5 mg Tablet 10 MG PO (03:17)
[2023-04-28 04:12] LABS: Basophils % 0.2 %; Eosinophils # 0.2 10^3/uL (0.0-0.8); Eosinophils % 4.3 %; Hematocrit 22.2 % (37-53); Lymphocytes # 0.6 10^3/uL (0.8-4.8); Lymphocytes % 13.5 %; Mean Corpuscular Hemoglobin 31.3 pg (27-33); Mean Corpuscular Volume 97.8 fl (82-101); Mean Platelet Volume 10.1 fL (7.4-10.4); Monocytes # 0.3 10^3/uL (0.2-0.9); Monocytes % 7.7 %; Neutrophils # 3.06 10^3/uL (1.8-7.7); Neutrophils % 74.1 %; Nucleated Red Blood Cells % 0 %; Platelet Count 154 10^3/cmm (157-399); Red Blood Count 2.27 10^6/uL (3.85-5.65); Red Cell Distribution Width 15.4 % (12.1-15.1); White Blood Count 4.14 10^3/uL (3.29-11.43)
[2023-04-28 04:34] LABS: Alanine Aminotransferase 23 U/L (0-41); Albumin Level 3.6 g/dL (3.5-5.2); Alkaline Phosphatase 76 U/L (40-130); Aspartate Amino Transferase 29 U/L (0-40); Blood Urea Nitrogen 43 mg/dL (8-23); Calcium 8.3 mg/dL (8.5-10.5); Carbon Dioxide 22 mmol/L (22-29); Chloride 95 mmol/L (98-107); Creatine Phosphokinase 216 U/L (39-308); Globulin 3.4 g/dL (1.3-4.6); Glomerular Filtration Rate 11.3 mL/min (90-130); Glucose 119 mg/dL (65-115); Osmolality Calculated 286 mOsm/kg (285-295); Sodium 132 mmol/L (136-145); Total Bilirubin 0.7 mg/dL (0.15-1.2)
[2023-04-28 04:35] LABS: Anion Gap 19.2 (5-19); Potassium 4.2 mmol/L (3.5-5.1)
[2023-04-28 04:37] LABS: C Reactive Protein 137.9 mg/L (0.0-4.9)
[2023-04-28] MEDS: clopidogrel 75 mg Tablet PO (05:44)
[2023-04-28] MEDS: ondansetron 2 mg/ML SDV 2 mL 4 MG IVP ×2 (05:45→10:36)
[2023-04-28] MEDS: vancomycin 1,500 MG/300 ML PIGGYBACK 200 MG IV (07:30)
[2023-04-28 07:46] LABS: Glucose Point of Care 114 mg/dL (70-110)
[2023-04-28] MEDS: budesonide 0.5 mg/2 mL Neb INHALATION ×2 (08:14→21:48)
[2023-04-28] MEDS: ipratropium-albuterol 3 mL Neb INHALATION (08:14)
--- NOTE | 2023-04-28 08:21 | ECG_ITS ---
[facility] Test Date: 2023-04-28 Pat Name: Wayne Aguilar Department: Room: [facility] Gender: Male Hydraulic Blocker: : 1960 Requested By: Modesto Barahona Order Number: [id number] Reading MD: Abdirizak Brewer M.D. Measurements Intervals [place] Rate: 78 P: 36 WA: 208 QRS: -1 QRSD: 113 T: 31 QT: 408 QTc: 466 Interpretive Statements SINUS RHYTHM MODERATE INTRAVENTRICULAR CONDUCTION DELAY [110+ ms QRS DURATION] Compared to ECG 04/25/2023 09:14:50 Intraventricular conduction delay now present Atrial fibrillation no longer present Electronically Signed On 04-28-2023 19:42:27 HAT BLOCKER by Abdirizak Brewer M.D. [email or web address] healthSiCortexpremier health [facility] southPergunter/store/[id number]
[2023-04-28] MEDS: metoprolol tartrate 50 mg Tablet PO ×2 (08:43→20:58)
[2023-04-28] MEDS: sodium bicarbonate 650 mg Tablet PO ×2 (08:43→20:58)
[2023-04-28 09:04] LABS: Troponin(5th) Baseline 110 ng/L (0-15)
--- NOTE | 2023-04-28 09:17 | PM.PN ---
Subjective Subjective: Patient seen and examined this morning he has had significant improvement in his hand as well as his elbow is actively utilizing his bilateral upper extremities with much improvement recheck of his CRP this is half from admissions down to 137.9 consistent with response to conservative treatment. Patient feels much improved pertain to his bilateral upper extremities. At this point no further intervention required at this time from orthopedic standpoint orthopedic surgery team will sign off and follow peripherally Vitals/I&O/Wt Last Vital Signs Temp 98.2 F 04/28/23 00:00 Pulse 81 04/28/23 08:29 Resp 14 04/28/23 08:14 BP 162/78 04/28/23 06:00 Pulse Ox 100 04/28/23 08:14 O2 Del Method Nasal Cannula 04/28/23 08:14 O2 Flow Rate 1 04/28/23 08:14 04/27/23 04/28/23 04/28/23 22:59 06:59 14:59 Intake Total 1250 / 2260 50 / 50 Output Total 2800 / 3250 30 / 3280 Balance -1550 / -990 -30 / -1020 50 / 50 Weight last 48 hrs Weight 153 lb Weight 225 lb 1.471 oz Weight 229 lb 4.492 oz Weight 229 lb 4.492 oz Weight 222 lb 10.67 oz Physical Exam Narrative: Examination today of the upper extremities: Examination of the left hand compressive Duong wrap was subsequently removed and patient has near complete resolution of the edema and swelling in his hand he has no recurrent erythema he has positive wrinkle sign throughout his hands now and has significant improvement in his range of motion still mild tenderness to palpation over the dorsal hand but no palpable fluctuance significant resolution of his cellulitis Examination of the right elbow demonstrates no erythema, improving edema noted still mild pitting edema appreciated but he is able to actively range his elbow with much improvement. Compressive stockings applied to both bilateral upper extremities to continue with this conservative treatment. Urinary Catheter Management: Rodriguez: Cath Placed During This Visit: yes Reason for Continuing Indwelling Catheter: Accurate Measurement of Urinary Output in Critically Ill Patients Urinary Catheter Date of Insertion: 04/25/23 Urinary Catheter Time of Insertion: 11:41 Data 04/28/23 03:49 04/28/23 03:49 A&P Assessment and plan (1) Cellulitis of left hand: (2) Cellulitis of right elbow: Plan Nonoperative management at this time continued compressive Duong wrap sleeve which was applied Recommend wrist brace to left wrist as needed Encourage strict elevation and ice as needed X-rays reviewed Labs reviewed IV antibiotics per primary Reviewed CRP which down trended to 137.9, was 307.6 on admission Orthopedic surgery team will sign off patient at this time will follow peripherally for this is any questions pertaining to patient's care feel free to contact orthopedics on-call Patient has shown appropriate downtrending CRP consistent with appropriate response to conservative treatment he has had significant improvement in his edema now with compressive stockings as well as an increase in his range of motion as well as near resolution of his erythema throughout. This point in time no further orthopedic surgical intervention required at this time and orthopedics will follow peripherally and sign off. Attestations Medical Necessity Statement*: Requires further hospitalization for management of acute renal failure requiring dialysis and temporary dialysis catheter placement, anemia requiring blood transfusion, improving left hand cellulitis Coding Level of Care Code Acute Code for [facility] Fwd Diagnoses Cellulitis of left hand L03.114 Cellulitis of right elbow L03.113 Time Spent (min) 20
[2023-04-28] MEDS: heparin, porcine 1,000 unit/mL INJ 10 mL 1000 UNIT IV (10:33)
[2023-04-28] MEDS: TRAMadol 50 mg Tablet PO (10:36)
[2023-04-28] MEDS: iron sucrose 200 MG in sodium chloride 0.9% (100 ml) 100 ML 220 MG IV (10:39)
[2023-04-28 11:06] LABS: Troponin 5 2HR 104.7 ng/L (0-15); Troponin 5 2HR Delta -5.3 ABS# (0-10)
[2023-04-28 12:57] LABS: Glucose Point of Care 99 mg/dL (70-110)
--- NOTE | 2023-04-28 13:17 | PC.NURSE ---
upon start of shift, patient reported that he was having chest pressure. patient was also nauseated and vomiting. Zonfran given for nausea. Due to accompanying chest pressure, nurse alerted Dr Goldstein and received orders for EKG and troponin series.
--- NOTE | 2023-04-28 13:39 | PC.HD ---
Loading dose of heparin 1000 units documented on MAR (Rx [id number]). Per public health aide's instructions, maintenance dose of heparin 500 units was administered via HD circuit at 11:30, 12:30, and 13:30. No ability to document these administrations on JUL.
[2023-04-28] MEDS: heparin, porcine 1,000 unit/mL INJ 10 mL 10000 UNIT INTRACATH (14:24)
[2023-04-28] MEDS: amlodipine 5 mg Tablet PO (14:59)
[2023-04-28] MEDS: vancomycin 1,000 MG in sodium chloride 0.9% 250 ML 250 MG IV (14:59)
--- NOTE | 2023-04-28 16:19 | PM.PN ---
Subjective Subjective: No events overnight. Denies any nausea, vomiting, seen with daughter at bedside. Undergoing dialysis. Patient underwent 1 session of dialysis yesterday with ultrafiltrate of 2500 cc. Tolerated well. Blood pressure mildly elevated. Urine output remains minimal. Otherwise has remained hemodynamically stable and afebrile. Currently on room air. Uremic symptoms have resolved. Received monitor blood transfusion yesterday. Medications: Reviewed: Yes Vitals/I&O/Wt Last Vital Signs Temp 97.7 F 04/28/23 14:24 Pulse 87 04/28/23 15:00 Resp 13 04/28/23 15:00 BP 150/60 04/28/23 15:00 Pulse Ox 96 04/28/23 15:00 O2 Del Method Room Air 04/28/23 15:00 O2 Flow Rate 2 04/28/23 14:58 04/28/23 04/28/23 04/28/23 06:59 14:59 22:59 Intake Total 100 / 2360 750 / 750 Output Total 30 / 3280 3300 / 3300 Balance 70 / -920 -2550 / -2550 Weight last 48 hrs Weight 103 kg Weight 69.4 kg Weight 102.1 kg Weight 104 kg Weight 104 kg Physical Exam Narrative: General: No acute distress, AO x3, more awake and alert. HEENT: PERRLA, pupils bilaterally equal and reactive Chest: Normal vesicular breath sounds, no added sounds, equal good air entry bilaterally CVS: S1-S2 regular, no murmurs, no tachycardia, no gallops, no rubs Abdomen: Soft, nontender, no organomegaly, bowel sounds present Neuro: No focal deficits, no facial deformity, AO x3, power 5/5 in all limbs Left arm bandaged by orthopedics, in splint. Skin: OTHER: Left arm on admission. Urinary Catheter Management: Rodriguez: Cath Placed During This Visit: yes Reason for Continuing Indwelling Catheter: Accurate Measurement of Urinary Output in Critically Ill Patients Urinary Catheter Date of Insertion: 04/25/23 Urinary Catheter Time of Insertion: 11:41 Data 04/28/23 03:49 04/28/23 03:49 A&P Assessment and plan (1) Fall: (2) Sepsis: (3) Cellulitis of left hand: (4) Acute on chronic renal failure: (5) S/P dialysis catheter insertion: (6) Hyponatremia: (7) Anemia: (8) Atrial fibrillation with rapid ventricular response: (9) Hypertension: Qualifiers: Hypertension type: essential hypertension Qualified Code(s): I10 - Essential (primary) hypertension (10) Hyperlipidemia: Qualifiers: Hyperlipidemia type: mixed hyperlipidemia Qualified Code(s): E78.2 - Mixed hyperlipidemia (11) Diabetes mellitus: Qualifiers: Diabetes mellitus type: type 2 Diabetes mellitus detention insulin use: with detention use Diabetes mellitus complication status: with other specified complication Qualified Code(s): E11.69 - Type 2 diabetes mellitus with other specified complication; Z79.4 - borematic operator (current) use of insulin (12) S/P foot surgery, right: (13) Rhabdomyolysis: Plan Sepsis: Ruled in on admission given fever, leukocytosis, tachycardia. Source most likely cellulitis of the left hand, cellulitis of the foot less likely. Endorgan damage with TULIO. Follow-up blood culture, urine culture. MRSA swab pending. Patient does have swelling and erythema of the right elbow. Will plan for CT of the right elbow to rule out septic arthritis versus abscess. Cellulitis of left hand: Appreciate orthopedic recommendations. Remove splint for now. Patient's hand swollen. Elevate. Continue wound care as per surgical team. Ice pack as needed. Neurovascular checks every 6 hours. Empirically start patient on IV vancomycin and Zosyn for now. Will de-escalate as per culture sensitivities. Appreciate CT with contrast of left forearm, right foot. Without any collection in the arm. Does have fracture of the metatarsal. Podiatry on board. TULIO: Baseline creatinine up to 1.4 to 1.6. Does have baseline diabetic nephropathy. Creatinine worsening today. Urine output poor. Continue with IV fluids. 1 dose of 40 mg of IV Lasix. Check CPK. Repeat BMP in evening. CT abdomen pelvis negative for obstructive nephropathy. Appreciate urine lites. Keep Rodriguez for now. Anemia: Baseline hemoglobin seems to be 13.9 in December. Hemoglobin down to 7.2. Repeat hemoglobin in afternoon. If needed will transfuse PRBC. Check stool for occult blood. If positive we will plan for EGD and colonoscopy. Hold off on surgical Consultation for now Continue with IV Protonix twice daily. Add Carafate before meals and at bedtime. Target hemoglobin more than 7. Fall: Most likely in setting of dehydration and sepsis along with longstanding neuropathy. Monitor blood pressures. Target blood pressure less than 140/90 mmHg with mean over 65. Patient currently on oxygen. At baseline he is not on oxygen. CTA ruled out PE. Urine drug screen negative. Continue with IV fluids at 100 cc/h. PT evaluation. Post recent foot surgery: Podiatry on board. Appreciate CT of the foot. Nonweightbearing. Wound care as per podiatry team. A-fib with RVR: Resolved. Most likely in setting of dehydration and sepsis. Off Cardizem drip. Continue with metoprolol at 50 mg twice daily. Patient currently not not on anticoagulation most likely in setting of anemia. Will do further med rec to confirm. Hyponatremia: Most likely in setting of dehydration. Fluid as above. Monitor BMP daily for now. Hypoxia: Appreciate CT chest. No consolidation. No PE. Aggressive pulmonary toilet. Out of bed to chair. Oxygen supplementation keeping saturation over 90%. Pulmicort twice daily, DuoNebs every 6 hours. Hypertension: Goal blood pressure less than 140/90 mmHg. At home patient is on amlodipine 10 mg daily, metoprolol succinate 75 mg daily. Hold off on amlodipine for now. Uptitrate as for goal blood pressures. Type 2 diabetes mellitus: Appreciate A1c and improving. Decrease Lantus to 15 units daily, insulin sliding scale low-dose protocol. Carb consistent diet. Plan for the day: Underwent first session of dialysis yesterday. Ultrafiltrate 2500 cc. Repeat dialysis today. Monitor BMP daily. Monitor urine output. So far remains low. Blood pressure is elevated. Goal blood pressure less than 140/90 mmHg. Add amlodipine. Hyponatremia and electrolyte abnormalities have resolved. Hemoglobin stable. Still 7.1. Transfuse monitor PRBC more. Stool for occult blood awaited. Transfer out of ICU to [facility]. Continue with IV antibiotic for cellulitis. Appreciate orthopedic recommendations. Care discussed in detail with patient's daughter at bedside.. CODE STATUS: Patient's daughter would be the healthcare proxy. Full code. Renal dialysis diabetic diet Protonix will suffice as PUD prophylaxis Heparin 5000 every 12 hourly for DVT prophylaxis Admit to ICU. Attestations Medical Necessity Statement*: Requires further hospitalization for management of acute renal failure requiring dialysis, anemia requiring blood transfusions Diagnoses Fall [id number].XXXA Sepsis A41.9 Cellulitis of left hand L03.114 Acute on chronic renal failure N17.9; N18.9 S/P dialysis catheter insertion Z95.828; Z99.2 Hyponatremia E87.1 Anemia D64.9 Atrial fibrillation with rapid ventricular response I48.91 Essential hypertension I10 Hypertension type: essential hypertension Mixed hyperlipidemia E78.2 Hyperlipidemia type: mixed hyperlipidemia Type 2 diabetes mellitus with other specified complication, with long-term current use of insulin E11.69; Z79.4 Diabetes mellitus type: type 2 Diabetes mellitus rotary cutter insulin use: with detention use Diabetes mellitus complication status: with other specified complication S/P foot surgery, right Z98.890 Rhabdomyolysis M62.82
[2023-04-28 17:01] LABS: Glucose Point of Care 200 mg/dL (70-110)
--- NOTE | 2023-04-28 17:48 | PC.NURSE ---
SHift SUmmary: Uneventful shift. Patient rested in bed for about 8 hours of the day. After finishing dialysis he was up to a chair for another 4 hours. 3Liters removed during dialysis. 1 unit of blood given. No urine output. Patient place on a 1000 fluid restriction. swelling to left hand/cellulitis site has decreased, but is still swollen and painful. Patient transferred to [facility] near end of shift. Report given to and patient received by Marie. Tracking fluid from 7am to 7am. SInce 7am today until the time of transfer to [facility] patient has had 320 mL oral fluids.
[2023-04-28] MEDS: insulin lispro 100 unit/1 mL SUBCUT ×2 (18:10→21:53)
--- NOTE | 2023-04-28 20:00 | P.PN_ITS ---
Subjective 2 Subjective: getting hD Medications: Reviewed: Yes Vitals/I&O/Wt Last Vital Signs Temp 99.8 F H 04/28/23 19:48 Pulse 101 H 04/28/23 19:48 Resp 18 04/28/23 19:48 BP 173/81 04/28/23 19:48 Pulse Ox 93 04/28/23 19:48 O2 Del Method Room Air 04/28/23 19:48 O2 Flow Rate 2 04/28/23 14:58 04/28/23 04/28/23 04/28/23 06:59 14:59 22:59 Intake Total 100 / 2360 750 / 750 1130 / 1880 Output Total 30 / 3280 3300 / 3300 Balance 70 / -920 -2550 / -2550 1130 / -1420 Weight last 48 hrs Weight 103 kg Weight 69.4 kg Weight 102.1 kg Weight 104 kg Weight 104 kg Physical Exam 2 Narrative: Patient is awake alert, no acute distress on 2 L nasal cannula Lungs clear per report No edema Urinary Catheter Management: Rodriguez: Cath Placed During This Visit: yes Reason for Continuing Indwelling Catheter: Accurate Measurement of Urinary Output in Critically Ill Patients Urinary Catheter Date of Insertion: 04/25/23 Urinary Catheter Time of Insertion: 11:41 Data 04/28/23 03:49 04/28/23 03:49 A&P Assessment and plan (1) Acute on chronic renal failure: 1. Acute on chronic kidney disease: Prior baseline creatinines in the mid 1 range. Now presented with a creatinine of 2.2 worsened to 3.8 currently and he became oliguric. - Renal fxn worse ,oluguric , and has met acidosis - s/p temporary HD catheter placement and started hD , # 2 session today -No obstruction on imaging. 2. Hyponatremia: Mild, monitor 3. Metabolic acidosis: HD as above 4. Anemia: Hemoglobin 7.2, recommend transfusion if hemoglobin drops less than 7 5. Sepsis, has cellulitis of left hand Ortho following on broad-spectrum antibiotics-with IV Vanco and Zosyn Patient evaluated using audiovisual cart. Time spent 20 minutes Attestations 2 Medical Necessity Statement*: per beltran Coding Level of Care Code Acute Code for [facility] Fwd Diagnoses Acute on chronic renal failure N17.9; N18.9
[2023-04-28] MEDS: piperacillin-tazobactam 2.25 GM in sodium chloride 0.9% (plus) 50 ML IV (20:57)
[2023-04-28] MEDS: atorvastatin 40 mg Tablet 20 MG PO (20:58)
[2023-04-28 21:25] LABS: Glucose Point of Care 178 mg/dL (70-110)
[2023-04-28] MEDS: insulin glargine 100 units/1 mL 12 UNIT SUBCUT (21:53)
[2023-04-29] VITALS (9 sets, daily range): BP systolic 144–182; BP diastolic 75–88; PULSE 78–109; RESP 14–19; TEMP 36.6–37.8; O2SAT 93–100; BMI 31.7; BMI 32.8
[2023-04-29] MEDS: heparin 5,000 unit/mL INJ 1 mL 5000 UNIT SUBCUT ×2 (02:43→15:13)
[2023-04-29] MEDS: pantoprazole 40 mg SDV IVP ×2 (02:44→15:12)
--- NOTE | 2023-04-29 03:17 | PC.NURSE ---
Assumed care of this patient at 0245. Patient resting in bed, awakens easily to voice. Heparin SQ and IV protonix administered per orders. Patient has no complaints of pain at this time, no needs voiced.
[2023-04-29 05:40] LABS: Basophils % 0.5 %; Eosinophils # 0.2 10^3/uL (0.0-0.8); Eosinophils % 5.1 %; Hematocrit 26.3 % (37-53); Lymphocytes # 0.4 10^3/uL (0.8-4.8); Mean Corpuscular HGB Conc 33.1 g/dL (30-55); Mean Corpuscular Hemoglobin 31.6 pg (27-33); Mean Corpuscular Volume 95.6 fl (82-101); Mean Platelet Volume 10.1 fL (7.4-10.4); Monocytes # 0.5 10^3/uL (0.2-0.9); Monocytes % 10.9 %; Neutrophils # 2.99 10^3/uL (1.8-7.7); Neutrophils % 72.8 %; Nucleated Red Blood Cells % 0 %; Platelet Count 162 10^3/cmm (157-399); Red Blood Count 2.75 10^6/uL (3.85-5.65); Red Cell Distribution Width 15.6 % (12.1-15.1); White Blood Count 4.11 10^3/uL (3.29-11.43)
[2023-04-29 06:04] LABS: Alanine Aminotransferase 28 U/L (0-41); Albumin Level 3.4 g/dL (3.5-5.2); Alkaline Phosphatase 117 U/L (40-130); Anion Gap 15.7 (5-19); Aspartate Amino Transferase 36 U/L (0-40); Blood Urea Nitrogen 34 mg/dL (8-23); Calcium 8.7 mg/dL (8.5-10.5); Carbon Dioxide 24 mmol/L (22-29); Chloride 97 mmol/L (98-107); Globulin 4.3 g/dL (1.3-4.6); Glomerular Filtration Rate 11.6 mL/min (90-130); Glucose 88 mg/dL (65-115); Osmolality Calculated 283 mOsm/kg (285-295); Potassium 3.7 mmol/L (3.5-5.1); Sodium 133 mmol/L (136-145); Total Bilirubin 1.1 mg/dL (0.15-1.2); Total Protein 7.7 g/dL (6.6-8.7)
[2023-04-29] MEDS: clopidogrel 75 mg Tablet PO (06:26)
[2023-04-29 06:27] LABS: Glucose Point of Care 81 mg/dL (70-110)
[2023-04-29] MEDS: amlodipine 5 mg Tablet PO (07:59)
[2023-04-29] MEDS: sodium bicarbonate 650 mg Tablet PO ×3 (07:59→22:03)
[2023-04-29] MEDS: piperacillin-tazobactam 2.25 GM in sodium chloride 0.9% (plus) 50 ML IV (08:12)
[2023-04-29] MEDS: budesonide 0.5 mg/2 mL Neb INHALATION ×2 (08:15→21:00)
[2023-04-29] MEDS: ipratropium-albuterol 3 mL Neb INHALATION ×3 (08:15→21:00)
--- NOTE | 2023-04-29 10:25 | XR_ITS ---
WS: [id number] Acute abdomen series, portable views, 04/29/2023 Clinical Data: assess for signs of obstruction/ileus Comparison: Portable chest, 04/27/2023 Findings: In the chest there are no nodules, masses or effusions. The heart is enlarged. The pulmonar y vascularity is is slightly increased. The right dialysis catheter remains in position. No free air is seen beneath the diaphragms. No abnormal intra-abdominal masses or calcifications are seen. There is a large amount of fecal material throughout the colon. Impression: 1. Mild cardiomegaly and pulmonary vascular congestion. 2. Large amount of fecal material in the colon.
[2023-04-29 10:51] LABS: Glucose Point of Care 107 mg/dL (70-110)
[2023-04-29] MEDS: metoprolol tartrate 50 mg Tablet PO ×2 (11:06→22:03)
[2023-04-29] MEDS: lactulose oral liq 20 gm/30 mL UDC 10 GM PO ×2 (11:06→17:25)
[2023-04-29] MEDS: iron sucrose 200 MG in sodium chloride 0.9% (100 ml) 100 ML 220 MG IV (11:15)
[2023-04-29 14:39] LABS: Methicillin-Resist S.aureu PCR NOT DETECTED (NOT DETECTED)
[2023-04-29 17:10] LABS: Glucose Point of Care 141 mg/dL (70-110)
[2023-04-29] MEDS: insulin lispro 100 unit/1 mL SUBCUT ×2 (17:25→22:04)
--- NOTE | 2023-04-29 18:37 | P.PN_ITS ---
Subjective 2 Subjective: no new complaints Medications: Reviewed: Yes Vitals/I&O/Wt Last Vital Signs Temp 98.3 F 04/29/23 16:00 Pulse 83 04/29/23 16:00 Resp 17 04/29/23 16:00 BP 170/88 04/29/23 16:00 Pulse Ox 94 04/29/23 16:00 O2 Del Method Room Air 04/29/23 13:25 O2 Flow Rate 2 04/28/23 14:58 04/29/23 04/29/23 04/29/23 06:59 14:59 22:59 Intake Total 50 / 1930 400 / 400 120 / 520 Output Total 600 / 3900 1600 / 1600 Balance -550 / -1970 400 / 400 -1480 / -1080 Weight last 48 hrs Weight 100.834 kg Weight 97.522 kg Weight 103 kg Weight 69.4 kg Physical Exam 2 Narrative: Patient is awake alert, no acute distress on 2 L nasal cannula Lungs clear per report No edema Urinary Catheter Management: Rodriguez: Cath Placed During This Visit: yes Reason for Continuing Indwelling Catheter: Acute Urinary Retention or Obstruction Urinary Catheter Date of Insertion: 04/25/23 Urinary Catheter Time of Insertion: 11:41 Data 04/29/23 05:25 04/29/23 05:25 A&P Assessment and plan (1) Acute on chronic renal failure: 1. Acute on chronic kidney disease: Prior baseline creatinines in the mid 1 range. Now presented with a creatinine of 2.2 worsened to 3.8 currently and he became oliguric. - Renal fxn worse ,oluguric , and has met acidosis - s/p temporary HD catheter placement and started hD , s/p 2 sessions , assess daily fr HD needs -No obstruction on imaging. 2. Hyponatremia: Mild, monitor 3. Metabolic acidosis: HD as above 4. Anemia: Hemoglobin 7.2, recommend transfusion if hemoglobin drops less than 7 5. Sepsis, has cellulitis of left hand Ortho following on broad-spectrum antibiotics-with IV Vanco and Zosyn Patient evaluated using audiovisual cart. Time spent 20 minutes Plan per mediicne Attestations 2 Medical Necessity Statement*: per medicine Coding Level of Care Code Acute Code for Chg Fwd Diagnoses Acute on chronic renal failure N17.9; N18.9
[2023-04-29] MEDS: piperacillin-tazobactam 3.375 GM in sodium chloride 0.9% (plus) 50 ML IV (20:14)
[2023-04-29 20:48] LABS: Glucose Point of Care 181 mg/dL (70-110)
[2023-04-29] MEDS: atorvastatin 40 mg Tablet 20 MG PO (22:03)
[2023-04-29] MEDS: insulin glargine 100 units/1 mL 12 UNIT SUBCUT (22:04)
[2023-04-29] MEDS: TRAMadol 50 mg Tablet PO (22:06)
--- NOTE | 2023-04-29 22:40 | P.PN_ITS ---
Subjective 2 Subjective: Left hand redness has been improving. Swelling with improvement but still persistent. Closing his hand with difficulty. Feels somewhat bloated with abdominal distention. Not vomiting. No bowel movement. Vitals/I&O/Wt Last Vital Signs Temp 98.2 F 04/29/23 19:55 Pulse 85 04/29/23 20:00 Resp 16 04/29/23 20:00 BP 182/82 04/29/23 19:55 Pulse Ox 98 04/29/23 20:00 O2 Del Method Room Air 04/29/23 20:00 O2 Flow Rate 2 04/28/23 14:58 04/29/23 04/29/23 04/29/23 06:59 14:59 22:59 Intake Total 50 / 1930 400 / 400 120 / 520 Output Total 600 / 3900 2800 / 2800 Balance -550 / -1970 400 / 400 -2680 / -2280 Weight last 48 hrs Weight 100.834 kg Weight 97.522 kg Weight 103 kg Weight 69.4 kg Physical Exam 2 Const: COMMON NORMALS: patient oriented x3 and alert GENERAL APPEARANCE: c ooperative ORIENTATION/CONSCIOUSNESS: Yes awake HENMT: COMMON NORMALS: oropharynx normal Neck/C-Spine: COMMON NORMALS: no JVD Resp: COMMON NORMALS: normal respiratory effort and clear to auscultation bilaterally AUSCULTATION: clear to auscultation bilaterally Cardio: COMMON NORMALS: no JVD, regular rhythm, S1 normal heart sound present, S2 normal heart sound present and No murmurs present (Cardio) RHYTHM: regular rhythm HEART SOUNDS: S1 normal heart sound present and S2 normal heart sound present GI: COMMON NORMALS: Normal to inspection, nondistended, normoactive bowel sounds present, Soft to palpation and non-tender PALPATION: Yes Soft to palpation OTHER: Mild abdominal distention. Extremity: COMMON NORMALS: no joint enlargement and no pedal edema Neuro: COMMON NORMALS: patient oriented x3 and moves all extremities S ENSORIUM/ORIENTATION: Yes alert Skin: COMMON NORMALS: no rashes or lesions noted GENERAL SKIN EXAM: no rashes or lesions noted Urinary Catheter Management: Rodriguez: Cath Placed During This Visit: yes Reason for Continuing Indwelling Catheter: Acute Urinary Retention or Obstruction Urinary Catheter Date of Insertion: 04/25/23 Urinary Catheter Time of Insertion: 11:41 Data 04/29/23 05:25 04/29/23 05:25 A&P Assessment and plan (1) Fall: (2) Sepsis: (3) Cellulitis of left hand: (4) Acute on chronic renal failure: (5) S/P dialysis catheter insertion: (6) Hyponatremia: (7) Anemia: (8) Atrial fibrillation with rapid ventricular response: (9) Hypertension: Qualifiers: Hypertension type: essential hypertension Qualified Code(s): I10 - Essential (primary) hypertension (10) Hyperlipidemia: Qualifiers: Hyperlipidemia type: mixed hyperlipidemia Qualified Code(s): E78.2 - Mixed hyperlipidemia (11) Diabetes mellitus: Qualifiers: Diabetes mellitus type: type 2 Diabetes mellitus maintenance worker municipal insulin use: with maintenance worker municipal use Diabetes mellitus complication status: with other specified complication Qualified Code(s): E11.69 - Type 2 diabetes mellitus with other specified complication; Z79.4 - surfacing technician (current) use of insulin (12) S/P foot surgery, right: (13) Rhabdomyolysis: Plan Cellulitis of left hand: Gradual improvement in erythema. Slow improvement in swelling, but is coming down. Discussed with him elevating arm above heart level. Discussed with nursing staff consideration of replacing IV to the other side, but there is some swelling in the right elbow and concerned that it does not get worse. That is additionally where his dialysis catheter is for as well. reviewed orthopedic documentation. Continue IV antibiotics. Acute kidney injury with antibiotic combination. Reassess kidney function. Check MRSA PCR. Sepsis: Resolved. Does have fracture of the metatarsal. Podiatry on board. TULIO: Acute renal failure. Discussed with nephrology. Continue dialysis, continue to monitor renal function for improvement. Discussed with case management, may end up requiring outpatient dialysis. Discussed with him. baseline creatinine up to 1.4 to 1.6. Does have baseline diabetic nephropathy. IV fluids discontinued. Reviewed CK. CT abdomen pelvis negative for obstructive nephropathy. Keep Rodriguez for now. Anemia: Hemoglobin reviewed, up to 8.7 with transfusion. Reassess blood counts. Occult blood stool has been requested but he has not had a bowel movement. Bowel regimen requested. Noted iron deficiency anemia on review of iron studies. Component of ACD with CKD Baseline hemoglobin seems to be 13.9 in December. Hemoglobin down to 7.2. Continue with IV Protonix twice daily. Carafate before meals and at bedtime. Target hemoglobin more than 7. Constipation: Passing some flatus, but otherwise no bowel movement, flatus has been minimal. Requested as discussed with him abdominal series. Escalated bowel regimen. Fall: Most likely in setting of dehydration and sepsis along with longstanding neuropathy. Monitor blood pressures. Target blood pressure less than 140/90 mmHg with mean over 65. Patient currently on oxygen. At baseline he is not on oxygen. CTA ruled out PE. Urine drug screen negative. IVF DC'd PT evaluation. Post recent foot surgery: Podiatry on board. Appreciate CT of the foot. Nonweightbearing. Wound care as per podiatry team. A-fib with RVR: Resolved. Most likely in setting of dehydration and sepsis. Off Cardizem drip. Continue with metoprolol at 50 mg twice daily. Patient currently not not on anticoagulation most likely in setting of anemia. Will do further med rec to confirm. Hyponatremia: Most likely in setting of dehydration. Fluid as above. Monitor BMP daily for now. Hypoxia: Resolved. Appreciate CT chest. No consolidation. No PE. Aggressive pulmonary toilet. Out of bed to chair. Oxygen supplementation keeping saturation over 90%. Pulmicort twice daily, DuoNebs every 6 hours. Hypertension: Goal blood pressure less than 140/90 mmHg. At home patient is on amlodipine 10 mg daily, metoprolol succinate 75 mg daily. Hold off on amlodipine for now. Uptitrate as for goal blood pressures. Type 2 diabetes mellitus: Appreciate A1c and improving. Decrease Lantus to 15 units daily, insulin sliding scale low-dose protocol. Carb consistent diet. CODE STATUS: Patient's daughter would be the healthcare proxy. Full code. Renal dialysis diabetic diet Protonix will suffice as PUD prophylaxis Heparin 5000 every 12 hourly for DVT prophylaxis Admit to ICU. Attestations 2 Medical Necessity Statement*: Continue admission for assessment management of cellulitis of left hand, assessment and management of acute renal failure, acute anemia, constipation. and High MDM includes amount and/or complexity of data reviewed/ordered [ previous or external records, resulted lab(s)/test(s), ordered lab(s)/test(s) and other healthcare professional discussion] and described risk of complication, morbidity or mortality of management as documented Diagnoses Fall W19.XXXA Sepsis A41.9 Cellulitis of left hand L03.114 Acute on chronic renal failure N17.9; N18.9 S/P dialysis catheter insertion Z95.828; Z99.2 Hyponatremia E87.1 Anemia D64.9 Atrial fibrillation with rapid ventricular response I48.91 Essential hypertension I10 Hypertension type: essential hypertension Mixed hyperlipidemia E78.2 Hyperlipidemia type: mixed hyperlipidemia Type 2 diabetes mellitus with other specified complication, with long-term current use of insulin E11.69; Z79.4 Diabetes mellitus type: type 2 Diabetes mellitus maintenance worker municipal insulin use: with maintenance worker municipal use Diabetes mellitus complication status: with other specified complication S/P foot surgery, right Z98.890 Rhabdomyolysis M62.82
[2023-04-30] VITALS (13 sets, daily range): BP systolic 168–195; BP diastolic 66–82; PULSE 70–84; RESP 16–18; TEMP 36.6–37.1; O2SAT 96–98; BMI 31.4
[2023-04-30] MEDS: pantoprazole 40 mg SDV IVP ×2 (04:05→15:25)
[2023-04-30] MEDS: heparin 5,000 unit/mL INJ 1 mL 5000 UNIT SUBCUT ×2 (04:06→15:25)
[2023-04-30] MEDS: clopidogrel 75 mg Tablet PO (06:07)
[2023-04-30 06:24] LABS: Glucose Point of Care 87 mg/dL (70-110)
[2023-04-30 06:47] LABS: Basophils % 0.6 %; Eosinophils # 0.3 10^3/uL (0.0-0.8); Eosinophils % 5.9 %; Hematocrit 26.8 % (37-53); Lymphocytes # 0.5 10^3/uL (0.8-4.8); Lymphocytes % 10.8 %; Mean Corpuscular HGB Conc 33.6 g/dL (30-55); Mean Corpuscular Hemoglobin 31.3 pg (27-33); Mean Corpuscular Volume 93.1 fl (82-101); Mean Platelet Volume 10.1 fL (7.4-10.4); Monocytes # 0.4 10^3/uL (0.2-0.9); Monocytes % 9.1 %; Neutrophils # 3.43 10^3/uL (1.8-7.7); Nucleated Red Blood Cells % 0 %; Platelet Count 203 10^3/cmm (157-399); Red Blood Count 2.88 10^6/uL (3.85-5.65); Red Cell Distribution Width 14.4 % (12.1-15.1); White Blood Count 4.71 10^3/uL (3.29-11.43)
[2023-04-30 07:09] LABS: Anion Gap 17.4 (5-19); Blood Urea Nitrogen 47 mg/dL (8-23); Calcium 9.5 mg/dL (8.5-10.5); Carbon Dioxide 26 mmol/L (22-29); Chloride 96 mmol/L (98-107); Glucose 88 mg/dL (65-115); Osmolality Calculated 294 mOsm/kg (285-295); Potassium 3.4 mmol/L (3.5-5.1); Sodium 136 mmol/L (136-145)
[2023-04-30] MEDS: budesonide 0.5 mg/2 mL Neb INHALATION ×2 (07:09→20:59)
[2023-04-30] MEDS: ipratropium-albuterol 3 mL Neb INHALATION ×3 (07:09→20:58)
[2023-04-30] MEDS: amlodipine 5 mg Tablet PO (07:58)
[2023-04-30] MEDS: potassium chloride ER 20 mEq Tablet PO (07:58)
[2023-04-30] MEDS: sodium bicarbonate 650 mg Tablet PO ×3 (07:58→20:09)
[2023-04-30] MEDS: lactulose oral liq 20 gm/30 mL UDC 10 GM PO ×2 (07:58→17:34)
[2023-04-30] MEDS: piperacillin-tazobactam 3.375 GM in sodium chloride 0.9% (plus) 50 ML IV ×2 (07:59→20:10)
--- NOTE | 2023-04-30 09:16 | PC.CHAP ---
Pastoral Care Encounter/Spiritual Assessment Type of Contact [] Declined dairy clerk visit [] Patient/Family/Request visit [] Outpatient visit [] Follow-up visit [] Physician referral [] Code/Alert [x] Routine visit [] Staff referral [] Actively dying [] Patient sleeping [x] Family support [] [] Out of room [] Palliative care [] [] Receiving care in room [] Pre-surgical visit [] Trauma [] Long length of stay [] ICU visit [] Other: Relational/Emotional Strength [x] Patient feels connected with others/family/visitors/staff [] Distress [] Loneliness/isolation [] Abandonment Spirituality of Patient [x] Person of Gloria [] Attends Amish of their Gloria [x] Believes in Prayer [] Reads Bible or Confucianism materials [] There are Spiritual issues to be addressed Milk Treater Interventions [xx] Prayer [x] Active listening [] Non-anxious presence [x] Spiritual/emotional support [] Crisis/trauma care [] Spiritual counseling [] Bereavement support [] Provided bereavement packet [] Provided Bible/devotional materials [] Provided toy/stuffed animal, coloring book to patient or family member [] Provided Communion [] Anointing/Waldo [] Salvation [x] Completed spiritual assessment [] Other: Impact on Illness or Injury [] Angry [] Fearful [] Anxious [] Often cries [] Exhaustion [] Unable to work [] Unable to attend buddhism [] Unable to walk/stand [] Unable to read [] Unable to drive [] Unable to eat/drink [] Unable to sleep [] Unable to be with family [] Patient intubated [] Other: Summary Time spent with patient 5 min
[2023-04-30] MEDS: metoprolol tartrate 50 mg Tablet PO ×2 (10:52→20:08)
[2023-04-30] MEDS: bisacodyl 10 mg Supp PR (10:53)
[2023-04-30 11:41] LABS: Glucose Point of Care 148 mg/dL (70-110)
[2023-04-30] MEDS: iron sucrose 200 MG in sodium chloride 0.9% (100 ml) 100 ML 220 MG IV (11:57)
[2023-04-30] MEDS: TRAMadol 50 mg Tablet PO ×2 (11:57→20:26)
[2023-04-30] MEDS: insulin lispro 100 unit/1 mL SUBCUT ×3 (12:47→22:21)
--- NOTE | 2023-04-30 17:09 | P.PN_ITS ---
Subjective 2 Subjective: denies any complaints Medications: Reviewed: Yes Vitals/I&O/Wt Last Vital Signs Temp 98.2 F 04/30/23 16:00 Pulse 70 04/30/23 16:00 Resp 16 04/30/23 16:00 BP 195/66 04/30/23 16:00 Pulse Ox 96 04/30/23 16:00 O2 Del Method Room Air 04/30/23 16:00 O2 Flow Rate 2 04/28/23 14:58 04/30/23 04/30/23 04/30/23 06:59 14:59 22:59 Intake Total 50 / 570 400 / 400 Output Total 1600 / 4400 1100 / 1100 1950 / 3050 Balance -1550 / -3830 -700 / -700 -1950 / -2650 Weight last 48 hrs Weight 96.615 kg Weight 97.522 kg Weight 100.834 kg Weight 97.522 kg Physical Exam 2 Narrative: Patient is awake alert, no acute distress on 2 L nasal cannula Lungs clear per report No edema Urinary Catheter Management: Rodriguez: Cath Placed During This Visit: yes Reason for Continuing Indwelling Catheter: Accurate Measurement of Urinary Output in Critically Ill Patients Urinary Catheter Date of Insertion: 04/25/23 Urinary Catheter Time of Insertion: 11:41 Data 04/30/23 06:19 04/30/23 06:19 Micro: Microbiology 04/30/23 11:45 Occult Blood (FIT) - Final Stool Routine Collection 04/25/23 10:15 Blood Culture - Final Blood NO GROWTH AFTER 5 DAYS 04/25/23 09:22 Blood Culture - Final Blood NO GROWTH AFTER 5 DAYS A&P Assessment and plan (1) Acute on chronic renal failure: 1. Acute on chronic kidney disease: Prior baseline creatinines in the mid 1 range. Now presented with a creatinine of 2.2 worsened to 3.8 currently and he became oliguric. - Renal fxn worse ,oluguric , and has met acidosis - s/p temporary HD catheter placement and started hD , s/p 2 sessions , assess daily fr HD needs -No obstruction on imaging. -polyuric with 5L UOP , Cr remains high ,holding off HD , will give IVFs 2. Hyponatremia:improved 3. Metabolic acidosis: improved 4. Anemia: Hemoglobin 9.0 5. Sepsis, has cellulitis of left hand Ortho following on broad-spectrum antibiotics-with IV Vanco and Zosyn Patient evaluated using audiovisual cart. Time spent 20 minutes Plan per mediicne Attestations 2 Medical Necessity Statement*: per medicine Coding Level of Care Code Acute Code for Chg Fwd Diagnoses Acute on chronic renal failure N17.9; N18.9
[2023-04-30 17:10] LABS: Glucose Point of Care 222 mg/dL (70-110)
[2023-04-30] MEDS: atorvastatin 40 mg Tablet 20 MG PO (20:09)
[2023-04-30] MEDS: insulin glargine 100 units/1 mL 12 UNIT SUBCUT (20:10)
[2023-04-30] MEDS: trazodone 50 mg Tablet 25 MG PO (20:26)
[2023-04-30 20:34] LABS: Glucose Point of Care 244 mg/dL (70-110)
--- NOTE | 2023-04-30 21:26 | P.PN_ITS ---
Subjective 2 Subjective: This morning he was transferred to wheelchair, is getting ready to make around around the unit. Still has not had bowel movement, abdomen still distended. Has not been doing the food here. No abdominal pain. Vitals/I&O/Wt Last Vital Signs Temp 98.7 F 04/30/23 20:00 Pulse 77 04/30/23 21:06 Resp 18 04/30/23 20:58 BP 168/79 04/30/23 20:00 Pulse Ox 98 04/30/23 20:58 O2 Del Method Room Air 04/30/23 20:58 O2 Flow Rate 2 04/28/23 14:58 04/30/23 04/30/23 04/30/23 06:59 14:59 22:59 Intake Total 50 / 570 400 / 400 Output Total 1600 / 4400 1100 / 1100 1950 / 3050 Balance -1550 / -3830 -700 / -700 -1950 / -2650 Weight last 48 hrs Weight 96.615 kg Weight 97.522 kg Weight 100.834 kg Weight 97.522 kg Physical Exam 2 Narrative: Accompanied by his daughter. Const: COMMON NORMALS: patient oriented x3 and alert GENERAL APPEARANCE: c ooperative ORIENTATION/CONSCIOUSNESS: Yes awake HENMT: COMMON NORMALS: oropharynx normal Neck/C-Spine: COMMON NORMALS: no JVD Resp: COMMON NORMALS: normal respiratory effort and clear to auscultation bilaterally AUSCULTATION: clear to auscultation bilaterally Cardio: COMMON NORMALS: no JVD, regular rhythm, S1 normal heart sound present, S2 normal heart sound present and No murmurs present (Cardio) RHYTHM: regular rhythm HEART SOUNDS: S1 normal heart sound present and S2 normal heart sound present GI: COMMON NORMALS: Normal to inspection, nondistended, normoactive bowel sounds present, Soft to palpation and non-tender PALPATION: Yes Soft to palpation OTHER: Mild abdominal distention. Extremity: COMMON NORMALS: no joint enlargement and no pedal edema Neuro: COMMON NORMALS: patient oriented x3 and moves all extremities S ENSORIUM/ORIENTATION: Yes alert Skin: COMMON NORMALS: no rashes or lesions noted GENERAL SKIN EXAM: no rashes or lesions noted Urinary Catheter Management: Rodriguez: Cath Placed During This Visit: yes Reason for Continuing Indwelling Catheter: Accurate Measurement of Urinary Output in Critically Ill Patients Urinary Catheter Date of Insertion: 04/25/23 Urinary Catheter Time of Insertion: 11:41 Data 04/30/23 06:19 04/30/23 06:19 Micro: Microbiology 04/30/23 11:45 Occult Blood (FIT) - Final Stool Routine Collection 04/25/23 10:15 Blood Culture - Final Blood NO GROWTH AFTER 5 DAYS 04/25/23 09:22 Blood Culture - Final Blood NO GROWTH AFTER 5 DAYS A&P Assessment and plan (1) Fall: (2) Sepsis: (3) Cellulitis of left hand: (4) Acute on chronic renal failure: (5) S/P dialysis catheter insertion: (6) Hyponatremia: (7) Anemia: (8) Atrial fibrillation with rapid ventricular response: (9) Hypertension: Qualifiers: Hypertension type: essential hypertension Qualified Code(s): I10 - Essential (primary) hypertension (10) Hyperlipidemia: Qualifiers: Hyperlipidemia type: mixed hyperlipidemia Qualified Code(s): E78.2 - Mixed hyperlipidemia (11) Diabetes mellitus: Qualifiers: Diabetes mellitus type: type 2 Diabetes mellitus nursing home insulin use: with nursing home use Diabetes mellitus complication status: with other specified complication Qualified Code(s): E11.69 - Type 2 diabetes mellitus with other specified complication; Z79.4 - [facility] (current) use of insulin (12) S/P foot surgery, right: (13) Rhabdomyolysis: Plan TULIO: Without improvement in renal function on review of BUN, creatinine, although has produced copious urine, polyuric with over 5 and half liters of urine. Reviewed chest x-ray, was fluid overloaded last night with pulmonary congestion, cardiomegaly. At risk of electrolyte normality. Reviewed chemistry, replace hypokalemia. Will repeat chemistry tonight. Discussed with nephrology, continue to reassess renal function to make determination whether may improve/come off dialysis. Discussed with case management, may end up requiring outpatient dialysis. Follow-up BMP, magnesium in the morning. baseline creatinine up to 1.4 to 1.6. Does have baseline diabetic nephropathy. Reviewed x-ray obstructive series. Reviewed nephrology note. Constipation: Reviewed obstructive series x-ray, noted no SBO. Large amount of stool. Discussed with him. Severe constipation, with a component of pseudoobstruction, has not had a bowel movement in 1 week. Bowel regimen escalated. Given Dulcolax suppository. Cellulitis of left hand: Erythema and swelling have been gradually improving. Continue to elevate extremity. Reviewed MRSA PCR, not detected. If continue to improve tomorrow, will de-escalate vancomycin. Monitor for risk of kidney injury with antibiotic combination. Reassess kidney function. Slow improvement in swelling, but is coming down. Discussed with him elevating arm above heart level. Discussed with nursing staff consideration of replacing IV to the other side, but there is some swelling in the right elbow and concerned that it does not get worse. That is additionally where his dialysis catheter is for as well. Sepsis: Resolved. Does have fracture of the metatarsal. Podiatry on board. Anemia: Reviewed hemoglobin, noted improved up to 9. Hemoccult has been ordered, Poligrip, reviewed, negative. He has not had a proper colonoscopy, states that attempted several times, but inadequate prep each time. Would benefit from follow-up study given iron deficiency. Otherwise anemia likely secondary to renal insufficiency, chronic disease. Hemoglobin reviewed, up to 8.7 with transfusion. Reassess blood counts. Occult blood stool has been requested but he has not had a bowel movement. Bowel regimen requested. Noted iron deficiency anemia on review of iron studies. Component of ACD with CKD Baseline hemoglobin seems to be 13.9 in December. Hemoglobin down to 7.2. Continue with IV Protonix twice daily. Carafate before meals and at bedtime. Target hemoglobin more than 7. Fall: Most likely in setting of dehydration and sepsis along with longstanding neuropathy. Monitor blood pressures. Target blood pressure less than 140/90 mmHg with mean over 65. Patient currently on oxygen. At baseline he is not on oxygen. CTA ruled out PE. Urine drug screen negative. PT Post recent foot surgery: Podiatry on board. Appreciate CT of the foot. Nonweightbearing. Wound care as per podiatry team. A-fib with RVR: Resolved. Most likely in setting of dehydration and sepsis. Off Cardizem drip. Continue with metoprolol at 50 mg twice daily. Patient currently not not on anticoagulation most likely in setting of anemia. Will do further med rec to confirm. Hyponatremia: Resolved. Most likely in setting of dehydration. Fluid as above. Monitor BMP daily for now. Hypoxia: Resolved. Appreciate CT chest. No consolidation. No PE. Aggressive pulmonary toilet. Out of bed to chair. Oxygen supplementation keeping saturation over 90%. Pulmicort twice daily, DuoNebs every 6 hours. Hypertension: With polyuria will avoid adjusting blood pressure medications for now to avoid hypotension. He is hypertensive, for now continue metoprolol, amlodipine, although at risk of hypotension, monitor blood pressures. Goal blood pressure less than 140/90 mmHg. At home patient is on amlodipine 10 mg daily, metoprolol succinate 75 mg daily. Hold off on amlodipine for now. Uptitrate as for goal blood pressures. Type 2 diabetes mellitus: Appreciate A1c and improving. Decrease Lantus to 15 units daily, insulin sliding scale low-dose protocol. Carb consistent diet. CODE STATUS: Patient's daughter would be the healthcare proxy. Full code. Renal dialysis diabetic diet Protonix will suffice as PUD prophylaxis Heparin 5000 every 12 hourly for DVT prophylaxis Attestations 2 Medical Necessity Statement*: Continue admission for assessment management of renal failure, currently with polyuria, severe constipation with pseudoobstruction, anemia. Diagnoses Fall W19.XXXA Sepsis A41.9 Cellulitis of left hand L03.114 Acute on chronic renal failure N17.9; N18.9 S/P dialysis catheter insertion Z95.828; Z99.2 Hyponatremia E87.1 Anemia D64.9 Atrial fibrillation with rapid ventricular response I48.91 Essential hypertension I10 Hypertension type: essential hypertension Mixed hyperlipidemia E78.2 Hyperlipidemia type: mixed hyperlipidemia Type 2 diabetes mellitus with other specified complication, with long-term current use of insulin E11.69; Z79.4 Diabetes mellitus type: type 2 Diabetes mellitus nursing home insulin use: with nursing home use Diabetes mellitus complication status: with other specified complication S/P foot surgery, right Z98.890 Rhabdomyolysis M62.82
[2023-04-30] MEDS: sodium chloride 0.9% 1,000 ML 100 ML IV (22:21)
[2023-04-30 22:36] LABS: Anion Gap 16.3 (5-19); Blood Urea Nitrogen 49 mg/dL (8-23); Calcium 9.1 mg/dL (8.5-10.5); Carbon Dioxide 26 mmol/L (22-29); Chloride 95 mmol/L (98-107); Glomerular Filtration Rate 10.2 mL/min (90-130); Glucose 209 mg/dL (65-115); Osmolality Calculated 297 mOsm/kg (285-295); Potassium 3.3 mmol/L (3.5-5.1); Sodium 134 mmol/L (136-145)
[2023-05-01] VITALS (15 sets, daily range): BP systolic 133–188; BP diastolic 72–94; PULSE 69–85; RESP 15–20; TEMP 36.4–37; O2SAT 95–98; BMI 31.8
[2023-05-01] MEDS: morphine 4 mg/mL SDV 1 mL 2 MG IVP ×2 (00:37→08:09)
[2023-05-01] MEDS: ipratropium-albuterol 3 mL Neb INHALATION ×4 (02:54→20:35)
[2023-05-01] MEDS: heparin 5,000 unit/mL INJ 1 mL 5000 UNIT SUBCUT ×2 (03:24→16:00)
[2023-05-01] MEDS: pantoprazole 40 mg SDV IVP ×2 (03:24→16:01)
[2023-05-01] MEDS: clopidogrel 75 mg Tablet PO (05:40)
[2023-05-01] MEDS: TRAMadol 50 mg Tablet PO ×3 (05:40→20:38)
[2023-05-01 06:34] LABS: Glucose Point of Care 109 mg/dL (70-110)
[2023-05-01 06:48] LABS: Basophils % 0.4 %; Eosinophils # 0.3 10^3/uL (0.0-0.8); Eosinophils % 5.1 %; Hematocrit 27.3 % (37-53); Lymphocytes # 0.7 10^3/uL (0.8-4.8); Lymphocytes % 12.3 %; Mean Corpuscular HGB Conc 33.3 g/dL (30-55); Mean Corpuscular Hemoglobin 31.4 pg (27-33); Mean Corpuscular Volume 94.1 fl (82-101); Mean Platelet Volume 10.2 fL (7.4-10.4); Monocytes # 0.6 10^3/uL (0.2-0.9); Monocytes % 10.1 %; Neutrophils # 3.91 10^3/uL (1.8-7.7); Neutrophils % 71.6 %; Nucleated Red Blood Cells % 0 %; Platelet Count 272 10^3/cmm (157-399); Red Cell Distribution Width 13.8 % (12.1-15.1); White Blood Count 5.46 10^3/uL (3.29-11.43)
[2023-05-01 07:02] LABS: Anion Gap 16.1 (5-19); Blood Urea Nitrogen 48 mg/dL (8-23); Calcium 9.2 mg/dL (8.5-10.5); Carbon Dioxide 27 mmol/L (22-29); Chloride 97 mmol/L (98-107); Glomerular Filtration Rate 11.3 mL/min (90-130); Glucose 111 mg/dL (65-115); Magnesium 2.1 mg/dL (1.7-2.3); Osmolality Calculated 297 mOsm/kg (285-295); Potassium 3.1 mmol/L (3.5-5.1); Sodium 137 mmol/L (136-145)
[2023-05-01] MEDS: lactulose oral liq 20 gm/30 mL UDC 10 GM PO ×2 (08:12→17:28)
[2023-05-01] MEDS: metoprolol tartrate 50 mg Tablet PO ×2 (08:13→20:38)
[2023-05-01] MEDS: sodium bicarbonate 650 mg Tablet PO (08:13)
[2023-05-01] MEDS: piperacillin-tazobactam 3.375 GM in sodium chloride 0.9% (plus) 50 ML IV ×2 (08:13→20:40)
[2023-05-01] MEDS: amlodipine 5 mg Tablet PO (08:13)
[2023-05-01] MEDS: budesonide 0.5 mg/2 mL Neb INHALATION ×2 (09:07→20:35)
[2023-05-01] MEDS: sodium chloride 0.9% 1,000 ML 100 ML IV ×2 (10:04→20:41)
[2023-05-01] MEDS: potassium chloride ER 20 mEq Tablet 40 MEQ PO (10:04)
[2023-05-01 10:37] LABS: Glucose Point of Care 200 mg/dL (70-110)
[2023-05-01] MEDS: insulin lispro 100 unit/1 mL SUBCUT ×3 (11:22→20:39)
[2023-05-01] MEDS: vancomycin 1,000 MG in sodium chloride 0.9% 250 ML 250 MG IV (11:26)
--- NOTE | 2023-05-01 12:08 | ECG_ITS ---
[facility] Test Date: 2023-05-01 Pat Name: Wayne Aguilar Department: Room: 276 Gender: Male Cigarette Stamper: : 1960 Requested By: Esteban Amato Order Number: [id number] Reading MD: Anastasiia Garcia M.D. Measurements Intervals [place] Rate: 73 P: 7 IL: 201 QRS: -7 QRSD: 110 T: 5 QT: 424 QTc: 469 Interpretive Statements SINUS RHYTHM Compared to ECG 04/28/2023 08:21:27 Intraventricular conduction delay no longer present Electronically Signed On 05-01-2023 15:22:32 GLUER MACHINE OPERATOR by Anastasiia Garcia M.D. [email or web address]
--- NOTE | 2023-05-01 13:26 | P.PN_ITS ---
Subjective 2 Subjective: feeling better Vitals/I&O/Wt Last Vital Signs Temp 97.5 F L 05/01/23 12:00 Pulse 85 05/01/23 12:00 Resp 16 05/01/23 12:00 BP 141/81 05/01/23 12:00 Pulse Ox 95 05/01/23 12:00 O2 Del Method Room Air 05/01/23 08:00 O2 Flow Rate 2 04/28/23 14:58 04/30/23 05/01/23 05/01/23 22:59 06:59 14:59 Intake Total 120 / 520 50 / 570 1360 / 1360 Output Total 1950 / 3050 2600 / 5650 Balance -1830 / -2530 -2550 / -5080 1360 / 1360 urine output 4550 ml/24h Weight last 48 hrs Weight 96.19 kg Weight 96.615 kg Weight 97.522 kg Physical Exam 2 Const: COMMON NORMALS: no acute distress and alert Extremity: NARRATIVE EXTREMITY EXAM: erythema left hand no LE edema Neuro: SENSORIUM/ORIENTATION: Yes alert Urinary Catheter Management: Guy: Cath Placed During This Visit: yes Reason for Continuing Indwelling Catheter: Other Urinary Catheter Date of Insertion: 04/25/23 Urinary Catheter Time of Insertion: 11:41 Data 05/01/23 06:10 05/01/23 06:10 Other Labs: Ca 9.2, Mg 2.1, CK 216 Micro: Microbiology 04/30/23 11:45 Occult Blood (FIT) - Final Stool Routine Collection 04/25/23 10:15 Blood Culture - Final Blood NO GROWTH AFTER 5 DAYS 04/25/23 09:22 Blood Culture - Final Blood NO GROWTH AFTER 5 DAYS CXR: Radiologist's impression: 1. Mild cardiomegaly and pulmonary vascular congestion. 2. Large amount of fecal material in the colon. CT Abd/Pel: Radiologist's impression: with contrast 04/25/23 Adrenal glands: Left adrenal fullness remains stable. Kidneys and ureters: No hydronephrosis. There is a 12.6 mm left renal cortical cyst which remains unchanged. There are multiple subcentimeter hypodensities in the right kidney, statistically these represent cysts. Other data: seen via telemedicine with assistance of RN at bedside A&P Assessment and plan (1) Acute kidney injury: Plan 1. Acute kidney injury requiring HD, last HD 04/28/23. Excellent urine output. Serum creatinine very slowly falling 2. Hypokalemia, K replaced IV today 3. Metablic acidosis resolved. d/c sodium bicarbonate 4. Anemia, Hb stable Recommend: check vanco level, discontinue guy catheter in AM. If renal function better, remove temporary dialysis catheter. Attestations 2 Medical Necessity Statement*: see above Time Spent in Patient Care: 16 - 35 minutes Coding Level of Care Code Acute Code for [facility] Fwd Diagnoses Acute kidney injury N17.9
[2023-05-01 16:41] LABS: Glucose Point of Care 204 mg/dL (70-110)
[2023-05-01 20:32] LABS: Glucose Point of Care 208 mg/dL (70-110)
[2023-05-01] MEDS: trazodone 50 mg Tablet 25 MG PO (20:38)
[2023-05-01] MEDS: atorvastatin 40 mg Tablet 20 MG PO (20:39)
[2023-05-01] MEDS: insulin glargine 100 units/1 mL 12 UNIT SUBCUT (20:40)
--- NOTE | 2023-05-01 23:00 | PM.PN ---
Subjective Subjective: denies any new symptoms. Improvement in swelling in the left hand. Continues to elevated. Dependent swelling in the right elbow. No pain on ROM. No redness or pain on palpation. Vitals/I&O/Wt Last Vital Signs Temp 98.2 F 05/01/23 19:27 Pulse 81 05/01/23 22:06 Resp 18 05/01/23 20:35 BP 168/81 05/01/23 19:27 Pulse Ox 96 05/01/23 20:35 O2 Del Method Room Air 05/01/23 20:35 O2 Flow Rate 2 04/28/23 14:58 05/01/23 05/01/23 05/02/23 14:59 22:59 06:59 Intake Total 1660 / 1660 1240 / 2900 Output Total 1999 / 1999 1300 / 3300 Balance -340 / -340 -60 / -400 Weight last 48 hrs Weight 97.749 kg Weight 96.19 kg Weight 96.615 kg Weight 97.522 kg Physical Exam Narrative: Accompanied by his daughter. Const: COMMON NORMALS: patient oriented x3 and alert GENERAL APPEARANCE: cooperative ORIENTATION/CONSCIOUSNESS: Yes awake HENMT: COMMON NORMALS: oropharynx normal Neck/C-Spine: COMMON NORMALS: no JVD Resp: COMMON NORMALS: normal respiratory effort and clear to auscultation bilaterally AUSCULTATION: clear to auscultation bilaterally Cardio: COMMON NORMALS: no JVD, regular rhythm, S1 normal heart sound present, S2 normal heart sound present and No murmurs present (Cardio) RHYTHM: regular rhythm HEART SOUNDS: S1 normal heart sound present and S2 normal heart sound present GI: COMMON NORMALS: Normal to inspection, nondistended, normoactive bowel sounds present, Soft to palpation and non-tender PALPATION: Yes Soft to palpation OTHER: Mild abdominal distention. Extremity: COMMON NORMALS: no joint enlargement and no pedal edema Neuro: COMMON NORMALS: patient oriented x3 and moves all extremities SENSORIUM/ORIENTATION: Yes alert Skin: COMMON NORMALS: no rashes or lesions noted GENERAL SKIN EXAM: no rashes or lesions noted Urinary Catheter Management: Rodriguez: Cath Placed During This Visit: yes Reason for Continuing Indwelling Catheter: Other Urinary Catheter Date of Insertion: 04/25/23 Urinary Catheter Time of Insertion: 11:41 Data 05/01/23 06:10 05/01/23 06:10 A&P Assessment and plan (1) Fall: (2) Sepsis: (3) Cellulitis of left hand: (4) Acute on chronic renal failure: (5) S/P dialysis catheter insertion: (6) Hyponatremia: (7) Anemia: (8) Atrial fibrillation with rapid ventricular response: (9) Hypertension: Qualifiers: Hypertension type: essential hypertension Qualified Code(s): I10 - Essential (primary) hypertension (10) Hyperlipidemia: Qualifiers: Hyperlipidemia type: mixed hyperlipidemia Qualified Code(s): E78.2 - Mixed hyperlipidemia (11) Diabetes mellitus: Qualifiers: Diabetes mellitus type: type 2 Diabetes mellitus retirement insulin use: with termite helper use Diabetes mellitus complication status: with other specified complication Qualified Code(s): E11.69 - Type 2 diabetes mellitus with other specified complication; Z79.4 - termite technician (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 Magnesium. Intake and output. reviewed nephrology note. Discussed with him and his daughter. He is still in polyuric phase. Noted hypokalemic. Potassium replacement requested. Magnesium is okay. At risk of further electrolyte abnormality, hypovolemia. Nephrology ordered additional fluids. Fluid restriction lifted for now given polyuric phase. Anticipate that the renal function hopefully may show some improvement. Reassess renal function. Sodium bicarb was stopped. Baseline creatinine up to 1.4 to 1.6. Does have baseline diabetic nephropathy. Reviewed x-ray obstructive series. Reviewed nephrology note. Discussed with transplant case manager. Constipation: Reviewed obstructive series x-ray, noted no SBO. Large amount of stool. Discussed with him. Severe constipation, with a component of pseudoobstruction, has not had a bowel movement in 1 week. Bowel regimen escalated. Given Dulcolax suppository. Cellulitis of left hand: MRSA PCR noted negative. Will stop vancomycin. Continue to elevate. Showing gradual improvement in swelling, erythema. Reviewed CBC, without leukocytosis. Afebrile. Continue empiric antibiotics. Erythema and swelling have been gradually improving. Continue to elevate extremity. If continue to improve tomorrow, will de-escalate vancomycin. Monitor for risk of kidney injury with antibiotic combination. Reassess kidney function. Slow improvement in swelling, but is coming down. Discussed with him elevating arm above heart level. Discussed with nursing staff consideration of replacing IV to the other side, but there is some swelling in the right elbow and concerned that it does not get worse. That is additionally where his dialysis catheter is for as well. Sepsis: Resolved. Does have fracture of the metatarsal. Podiatry on board. Anemia: Reviewed hemoglobin, noted improved up to 9. Hemoccult has been ordered, Poligrip, reviewed, negative. He has not had a proper colonoscopy, states that attempted several times, but inadequate prep each time. Would benefit from follow-up study given iron deficiency. Otherwise anemia likely secondary to renal insufficiency, chronic disease. Hemoglobin reviewed, up to 8.7 with transfusion. Reassess blood counts. Occult blood stool has been requested but he has not had a bowel movement. Bowel regimen requested. Noted iron deficiency anemia on review of iron studies. Component of ACD with CKD Baseline hemoglobin seems to be 13.9 in December. Hemoglobin down to 7.2. Continue with IV Protonix twice daily. Carafate before meals and at bedtime. Target hemoglobin more than 7. Fall: Most likely in setting of dehydration and sepsis along with longstanding neuropathy. Monitor blood pressures. Target blood pressure less than 140/90 mmHg with mean over 65. Patient currently on oxygen. At baseline he is not on oxygen. CTA ruled out PE. Urine drug screen negative. PT Post recent foot surgery: Podiatry on board. Appreciate CT of the foot. Nonweightbearing. Wound care as per podiatry team. A-fib with RVR: Resolved. Most likely in setting of dehydration and sepsis. Off Cardizem drip. Continue with metoprolol at 50 mg twice daily. Patient currently not not on anticoagulation most likely in setting of anemia. Will do further med rec to confirm. Hyponatremia: Resolved. Most likely in setting of dehydration. Fluid as above. Monitor BMP daily for now. Hypoxia: Resolved. Appreciate CT chest. No consolidation. No PE. Aggressive pulmonary toilet. Out of bed to chair. Oxygen supplementation keeping saturation over 90%. Pulmicort twice daily, DuoNebs every 6 hours. Hypertension: With polyuria will avoid adjusting blood pressure medications for now to avoid hypotension. He is hypertensive, for now continue metoprolol, amlodipine, although at risk of hypotension, monitor blood pressures. Goal blood pressure less than 140/90 mmHg. At home patient is on amlodipine 10 mg daily, metoprolol succinate 75 mg daily. Hold off on amlodipine for now. Uptitrate as for goal blood pressures. Type 2 diabetes mellitus: Appreciate A1c and improving. Decrease Lantus to 15 units daily, insulin sliding scale low-dose protocol. Carb consistent diet. CODE STATUS: Patient's daughter would be the healthcare proxy. Full code. Renal dialysis diabetic diet Protonix will suffice as PUD prophylaxis Heparin 5000 every 12 hourly for DVT prophylaxis Attestations Medical Necessity Statement*: Continue admission for assessment management of renal failure, currently with polyuria, severe constipation with pseudoobstruction, anemia. and High MDM includes number and complexity of problems actively addressed during encounter as documented Diagnoses Fall W19.XXXA Sepsis A41.9 Cellulitis of left hand L03.114 Acute on chronic renal failure N17.9; N18.9 S/P dialysis catheter insertion Z95.828; Z99.2 Hyponatremia E87.1 Anemia D64.9 Atrial fibrillation with rapid ventricular response I48.91 Essential hypertension I10 Hypertension type: essential hypertension Mixed hyperlipidemia E78.2 Hyperlipidemia type: mixed hyperlipidemia Type 2 diabetes mellitus with other specified complication, with long-term current use of insulin E11.69; Z79.4 Diabetes mellitus type: type 2 Diabetes mellitus retirement insulin use: with termite helper use Diabetes mellitus complication status: with other specified complication S/P foot surgery, right Z98.890 Rhabdomyolysis M62.82
[2023-05-02] VITALS (10 sets, daily range): BP systolic 167–189; BP diastolic 71–91; PULSE 74–79; RESP 15–18; TEMP 36.7–37.3; O2SAT 92–98; BMI 31.1
[2023-05-02] MEDS: heparin 5,000 unit/mL INJ 1 mL 5000 UNIT SUBCUT ×2 (03:55→15:24)
[2023-05-02] MEDS: pantoprazole 40 mg SDV IVP ×2 (03:55→15:24)
[2023-05-02] MEDS: morphine 4 mg/mL SDV 1 mL 2 MG IVP ×2 (03:55→11:24)
[2023-05-02] MEDS: ondansetron 2 mg/ML SDV 2 mL 4 MG IVP (04:03)
[2023-05-02 05:44] LABS: Basophils % 0.5 %; Eosinophils # 0.3 10^3/uL (0.0-0.8); Hematocrit 25.6 % (37-53); Lymphocytes # 0.6 10^3/uL (0.8-4.8); Lymphocytes % 8.7 %; Mean Corpuscular HGB Conc 33.6 g/dL (30-55); Mean Corpuscular Hemoglobin 31.6 pg (27-33); Mean Corpuscular Volume 94.1 fl (82-101); Mean Platelet Volume 9.6 fL (7.4-10.4); Monocytes # 0.5 10^3/uL (0.2-0.9); Monocytes % 7.9 %; Neutrophils # 5.05 10^3/uL (1.8-7.7); Neutrophils % 78.4 %; Nucleated Red Blood Cells % 0 %; Platelet Count 296 10^3/cmm (157-399); Red Blood Count 2.72 10^6/uL (3.85-5.65); Red Cell Distribution Width 13.8 % (12.1-15.1); White Blood Count 6.44 10^3/uL (3.29-11.43)
[2023-05-02 06:07] LABS: Anion Gap 14.5 (5-19); Blood Urea Nitrogen 41 mg/dL (8-23); Calcium 8.9 mg/dL (8.5-10.5); Carbon Dioxide 26 mmol/L (22-29); Chloride 101 mmol/L (98-107); Glomerular Filtration Rate 14.9 mL/min (90-130); Glucose 122 mg/dL (65-115); Osmolality Calculated 297 mOsm/kg (285-295); Potassium 3.5 mmol/L (3.5-5.1); Sodium 138 mmol/L (136-145)
[2023-05-02] MEDS: clopidogrel 75 mg Tablet PO (06:07)
[2023-05-02] MEDS: sodium chloride 0.9% 1,000 ML 100 ML IV ×3 (06:07→20:15)
[2023-05-02 06:08] LABS: Phosphorus 3.9 mg/dL (2.5-4.5)
[2023-05-02 06:11] LABS: Magnesium 1.8 mg/dL (1.7-2.3)
--- NOTE | 2023-05-02 06:13 | PC.NURSE ---
This nurse emptied 8mLs out of the guy catheter balloon. Multiple attempts were made to remove more saline from the balloon with no result. Some resistance and pain occurred when removing the guy catheter. The guy catheter tip was intact and balloon fully empty upon removal.
[2023-05-02 06:34] LABS: Glucose Point of Care 122 mg/dL (70-110)
[2023-05-02] MEDS: amlodipine 5 mg Tablet PO (08:11)
[2023-05-02] MEDS: metoprolol tartrate 50 mg Tablet PO ×2 (08:11→20:09)
[2023-05-02] MEDS: lactulose oral liq 20 gm/30 mL UDC 10 GM PO (08:12)
[2023-05-02] MEDS: piperacillin-tazobactam 3.375 GM in sodium chloride 0.9% (plus) 50 ML IV ×2 (08:17→20:11)
[2023-05-02] MEDS: potassium chloride ER 20 mEq Tablet 40 MEQ PO (09:45)
[2023-05-02] MEDS: TRAMadol 50 mg Tablet PO ×2 (10:30→20:09)
[2023-05-02 10:33] LABS: Glucose Point of Care 151 mg/dL (70-110)
[2023-05-02] MEDS: magnesium sulfate premix 2 GM/50 ML PIGGYBACK IV (10:48)
--- NOTE | 2023-05-02 12:43 | P.PN_ITS ---
Vitals/I&O/Wt Last Vital Signs Temp 98.3 F 05/02/23 10:30 Pulse 74 05/02/23 10:30 Resp 18 05/02/23 11:24 BP 189/91 05/02/23 10:30 Pulse Ox 95 05/02/23 11:24 O2 Del Method Room Air 05/02/23 10:30 O2 Flow Rate 2 04/28/23 14:58 05/01/23 05/02/23 05/02/23 22:59 06:59 14:59 Intake Total 1240 / 2900 993.333 / 3893.333 240 / 240 Output Total 1300 / 3300 1200 / 4500 Balance -60 / -400 -206.667 / -606.667 240 / 240 Weight last 48 hrs Weight 95.708 kg Weight 96.729 kg Weight 97.749 kg Weight 96.19 kg Physical Exam 2 Urinary Catheter Management: Rodriguez: Cath Placed During This Visit: yes, but has since been removed by the nurse Reason for Continuing Indwelling Catheter: Decision to DC Catheter Urinary Catheter Date of Insertion: 04/25/23 Urinary Catheter Time of Insertion: 11:41 Date Urinary Catheter Removed: 05/02/23 Time Urinary Catheter Discontinued: 06:13 Data 05/02/23 05:30 05/02/23 05:30 A&P Assessment and plan (1) Fall: (2) Sepsis: (3) Cellulitis of left hand: (4) Acute on chronic renal failure: (5) S/P dialysis catheter insertion: (6) Hyponatremia: (7) Anemia: (8) Atrial fibrillation with rapid ventricular response: (9) Hypertension: Qualifiers: Hypertension type: essential hypertension Qualified Code(s): I10 - Essential (primary) hypertension (10) Hyperlipidemia: Qualifiers: Hyperlipidemia type: mixed hyperlipidemia Qualified Code(s): E78.2 - Mixed hyperlipidemia (11) Diabetes mellitus: Qualifiers: Diabetes mellitus type: type 2 Diabetes mellitus assisted insulin use: with assisted use Diabetes mellitus complication status: with other specified complication Qualified Code(s): E11.69 - Type 2 diabetes mellitus with other specified complication; Z79.4 - ocean transportation intermediary (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 Magnesium. Intake and output. reviewed nephrology note. Discussed with him and his daughter. He is still in polyuric phase. Noted hypokalemic. Potassium replacement requested. Magnesium is okay. At risk of further electrolyte abnormality, hypovolemia. Nephrology ordered additional fluids. Fluid restriction lifted for now given polyuric phase. Anticipate that the renal function hopefully may show some improvement. Reassess renal function. Sodium bicarb was stopped. Baseline creatinine up to 1.4 to 1.6. Does have baseline diabetic nephropathy. Reviewed x-ray obstructive series. Reviewed nephrology note. Discussed with spring encaser. Constipation: Reviewed obstructive series x-ray, noted no SBO. Large amount of stool. Discussed with him. Severe constipation, with a component of pseudoobstruction, has not had a bowel movement in 1 week. Bowel regimen escalated. Given Dulcolax suppository. Cellulitis of left hand: MRSA PCR noted negative. Will stop vancomycin. Continue to elevate. Showing gradual improvement in swelling, erythema. Reviewed CBC, without leukocytosis. Afebrile. Continue empiric antibiotics. Erythema and swelling have been gradually improving. Continue to elevate extremity. If continue to improve tomorrow, will de-escalate vancomycin. Monitor for risk of kidney injury with antibiotic combination. Reassess kidney function. Slow improvement in swelling, but is coming down. Discussed with him elevating arm above heart level. Discussed with nursing staff consideration of replacing IV to the other side, but there is some swelling in the right elbow and concerned that it does not get worse. That is additionally where his dialysis catheter is for as well. Sepsis: Resolved. Does have fracture of the metatarsal. Podiatry on board. Anemia: Reviewed hemoglobin, noted improved up to 9. Hemoccult has been ordered, Poligrip, reviewed, negative. He has not had a proper colonoscopy, states that attempted several times, but inadequate prep each time. Would benefit from follow-up study given iron deficiency. Otherwise anemia likely secondary to renal insufficiency, chronic disease. Hemoglobin reviewed, up to 8.7 with transfusion. Reassess blood counts. Occult blood stool has been requested but he has not had a bowel movement. Bowel regimen requested. Noted iron deficiency anemia on review of iron studies. Component of ACD with CKD Baseline hemoglobin seems to be 13.9 in December. Hemoglobin down to 7.2. Continue with IV Protonix twice daily. Carafate before meals and at bedtime. Target hemoglobin more than 7. Fall: Most likely in setting of dehydration and sepsis along with longstanding neuropathy. Monitor blood pressures. Target blood pressure less than 140/90 mmHg with mean over 65. Patient currently on oxygen. At baseline he is not on oxygen. CTA ruled out PE. Urine drug screen negative. PT Post recent foot surgery: Podiatry on board. Appreciate CT of the foot. Nonweightbearing. Wound care as per podiatry team. A-fib with RVR: Resolved. Most likely in setting of dehydration and sepsis. Off Cardizem drip. Continue with metoprolol at 50 mg twice daily. Patient currently not not on anticoagulation most likely in setting of anemia. Will do further med rec to confirm. Hyponatremia: Resolved. Most likely in setting of dehydration. Fluid as above. Monitor BMP daily for now. Hypoxia: Resolved. Appreciate CT chest. No consolidation. No PE. Aggressive pulmonary toilet. Out of bed to chair. Oxygen supplementation keeping saturation over 90%. Pulmicort twice daily, DuoNebs every 6 hours. Hypertension: With polyuria will avoid adjusting blood pressure medications for now to avoid hypotension. He is hypertensive, for now continue metoprolol, amlodipine, although at risk of hypotension, monitor blood pressures. Goal blood pressure less than 140/90 mmHg. At home patient is on amlodipine 10 mg daily, metoprolol succinate 75 mg daily. Hold off on amlodipine for now. Uptitrate as for goal blood pressures. Type 2 diabetes mellitus: Appreciate A1c and improving. Decrease Lantus to 15 units daily, insulin sliding scale low-dose protocol. Carb consistent diet. CODE STATUS: Patient's daughter would be the healthcare proxy. Full code. Renal dialysis diabetic diet Protonix will suffice as PUD prophylaxis Heparin 5000 every 12 hourly for DVT prophylaxis Coding Level of Care Code Acute Code for [facility] Fwd Diagnoses Fall W19.XXXA Sepsis A41.9 Cellulitis of left hand L03.114 Acute on chronic renal failure N17.9; N18.9 S/P dialysis catheter insertion Z95.828; Z99.2 Hyponatremia E87.1 Anemia D64.9 Atrial fibrillation with rapid ventricular response I48.91 Essential hypertension I10 Hypertension type: essential hypertension Mixed hyperlipidemia E78.2 Hyperlipidemia type: mixed hyperlipidemia Type 2 diabetes mellitus with other specified complication, with long-term current use of insulin E11.69; Z79.4 Diabetes mellitus type: type 2 Diabetes mellitus assisted insulin use: with assisted use Diabetes mellitus complication status: with other specified complication S/P foot surgery, right Z98.890 Rhabdomyolysis M62.82
--- NOTE | 2023-05-02 12:49 | P.PN_ITS ---
Subjective 2 Subjective: feeling better, guy out this AM, urinating without difficulty Vitals/I&O/Wt Last Vital Signs Temp 98.3 F 05/02/23 10:30 Pulse 74 05/02/23 10:30 Resp 18 05/02/23 11:24 BP 189/91 05/02/23 10:30 Pulse Ox 95 05/02/23 11:24 O2 Del Method Room Air 05/02/23 10:30 O2 Flow Rate 2 04/28/23 14:58 05/01/23 05/02/23 05/02/23 22:59 06:59 14:59 Intake Total 1240 / 2900 993.333 / 3893.333 240 / 240 Output Total 1300 / 3300 1200 / 4500 Balance -60 / -400 -206.667 / -606.667 240 / 240 urine output 2500 ml/24h Weight last 48 hrs Weight 95.708 kg Weight 96.729 kg Weight 97.749 kg Weight 96.19 kg Physical Exam 2 Const: COMMON NORMALS: no acute distress and alert Neuro: SENSORIUM/ORIENTATION: Yes alert Urinary Catheter Management: Guy: Cath Placed During This Visit: yes, but has since been removed by the nurse Reason for Continuing Indwelling Catheter: Decision to DC Catheter Urinary Catheter Date of Insertion: 04/25/23 Urinary Catheter Time of Insertion: 11:41 Date Urinary Catheter Removed: 05/02/23 Time Urinary Catheter Discontinued: 06:13 Data 05/02/23 05:30 05/02/23 05:30 Other data: seen via telemedicine with assistance of RN at bedside A&P Assessment and plan (1) Acute kidney injury: Plan 1. Acute kidney injury required HD, last HD 04/28/23. Excellent urine output. Serum creatinine improving. Does not require continued HD 2. Hypokalemia, improved 3. Metablic acidosis resolved. 4. Anemia, Hb stable Recommend: If renal function stable or improved tomorrow, remove temporary dialysis catheter. Able to be discharged then from renal standpoint. Needs outpatient nephroogy follow-up within 2 weeks of discharge Attestations 2 Medical Necessity Statement*: per primary service Time Spent in Patient Care: 16 - 35 minutes Coding Level of Care Code Acute Code for [facility] Fwd Diagnoses Acute kidney injury N17.9
[2023-05-02 16:22] LABS: Glucose Point of Care 151 mg/dL (70-110)
[2023-05-02] MEDS: atorvastatin 40 mg Tablet 20 MG PO (20:09)
[2023-05-02] MEDS: trazodone 50 mg Tablet 25 MG PO (20:10)
[2023-05-02] MEDS: insulin glargine 100 units/1 mL 12 UNIT SUBCUT (20:16)
[2023-05-02 20:53] LABS: Glucose Point of Care 219 mg/dL (70-110)
[2023-05-02] MEDS: insulin lispro 100 unit/1 mL SUBCUT (22:09)
--- NOTE | 2023-05-02 22:21 | PM.PN ---
Subjective Subjective: Rodriguez catheter has been removed. No trouble urinating. Swelling, down the left hand and wrist. Some improvement in dependent swelling in the right elbow. Vitals/I&O/Wt Last Vital Signs Temp 98.4 F 05/02/23 19:42 Pulse 77 05/02/23 19:42 Resp 15 05/02/23 19:42 BP 174/77 05/02/23 19:42 Pulse Ox 98 05/02/23 19:42 O2 Del Method Room Air 05/02/23 19:42 O2 Flow Rate 2 04/28/23 14:58 05/02/23 05/02/23 05/02/23 06:59 14:59 22:59 Intake Total 993.333 / 3893.333 290 / 290 2216.667 / 2506.667 Output Total 1200 / 4500 3300 / 3300 Balance -206.667 / -606.667 290 / 290 -1083.333 / -793.333 Weight last 48 hrs Weight 95.708 kg Weight 96.729 kg Weight 97.749 kg Weight 96.19 kg Physical Exam Narrative: Visited by a friend Const: COMMON NORMALS: patient oriented x3 and alert GENERAL APPEARANCE: cooperative ORIENTATION/CONSCIOUSNESS: Yes awake HENMT: COMMON NORMALS: oropharynx normal Neck/C-Spine: COMMON NORMALS: no JVD Resp: COMMON NORMALS: normal respiratory effort and clear to auscultation bilaterally AUSCULTATION: clear to auscultation bilaterally Cardio: COMMON NORMALS: no JVD, regular rhythm, S1 normal heart sound present, S2 normal heart sound present and No murmurs present (Cardio) RHYTHM: regular rhythm HEART SOUNDS: S1 normal heart sound present and S2 normal heart sound present GI: COMMON NORMALS: Normal to inspection, nondistended, normoactive bowel sounds present, Soft to palpation and non-tender PALPATION: Yes Soft to palpation Extremity: COMMON NORMALS: no joint enlargement and no pedal edema OTHER: Almost resolved swelling of the left hand, wrist. Mild swelling with improvement in the dependent area of the right elbow. No erythema. No tenderness to palpation. Neuro: COMMON NORMALS: patient oriented x3 and moves all extremities SENSORIUM/ORIENTATION: Yes alert Skin: COMMON NORMALS: no rashes or lesions noted GENERAL SKIN EXAM: no rashes or lesions noted Urinary Catheter Management: Rodriguez: Cath Placed During This Visit: yes, but has since been removed by the nurse Reason for Continuing Indwelling Catheter: Decision to DC Catheter Urinary Catheter Date of Insertion: 04/25/23 Urinary Catheter Time of Insertion: 11:41 Date Urinary Catheter Removed: 05/02/23 Time Urinary Catheter Discontinued: 06:13 Data 05/02/23 05:30 05/02/23 05:30 A&P Assessment and plan (1) Fall: (2) Sepsis: (3) Cellulitis of left hand: (4) Acute on chronic renal failure: (5) S/P dialysis catheter insertion: (6) Hyponatremia: (7) Anemia: (8) Atrial fibrillation with rapid ventricular response: (9) Hypertension: Qualifiers: Hypertension type: essential hypertension Qualified Code(s): I10 - Essential (primary) hypertension (10) Hyperlipidemia: Qualifiers: Hyperlipidemia type: mixed hyperlipidemia Qualified Code(s): E78.2 - Mixed hyperlipidemia (11) Diabetes mellitus: Qualifiers: Diabetes mellitus type: type 2 Diabetes mellitus terminal supervisor insulin use: with terminal supervisor use Diabetes mellitus complication status: with other specified complication Qualified Code(s): E11.69 - Type 2 diabetes mellitus with other specified complication; Z79.4 - [facility] (current) use of insulin (12) S/P foot surgery, right: (13) Rhabdomyolysis: Plan TULIO: Reviewed vitals, CBC, BMP replace potassium, magnesium. Improvement in kidney function, BUN down to 41, creatinine down to 4.1. Polyuria appears possibly improving as well, although total output this evening still listed at 4500. Rodriguez catheter removed. Continue to monitor. Replace electrolytes as he is at risk of depletion in polyuric phase. Reviewed nephrology note. Discussed with nephrology. Likely should not require dialysis at discharge. Discussed with case planner. Baseline creatinine up to 1.4 to 1.6. Does have baseline diabetic nephropathy. Constipation: Did have a bowel movement, but none yesterday. Add MiraLAX BID. Continue bowel regimen. Obstructive series x-ray, noted no SBO. Large amount of stool. Discussed with him. Severe constipation, with a component of pseudoobstruction, has not had a bowel movement in 1 week. Cellulitis of left hand: MRSA PCR noted negative. Continue Zosyn. Continue to elevate. Showing gradual improvement in swelling, erythema. Reviewed WBC, noted normal. Continue empiric antibiotics. Erythema and swelling have been gradually improving. Continue to elevate extremity. Sepsis: Resolved. Does have fracture of the metatarsal. Podiatry on board. Anemia: Reviewed hemoglobin, with some fluctuation, today down to 8.6. Recheck CBC. Hemoccult negative. He has not had a proper colonoscopy, states that attempted several times, but inadequate prep each time. Would benefit from follow-up study given iron deficiency. Otherwise anemia likely secondary to renal insufficiency, chronic disease. Noted iron deficiency anemia on review of iron studies. Component of ACD with CKD Baseline hemoglobin seems to be 13.9 in December. Hemoglobin down to 7.2. Continue with IV Protonix twice daily. Carafate before meals and at bedtime. Target hemoglobin more than 7. Fall: Most likely in setting of dehydration and sepsis along with longstanding neuropathy. Monitor blood pressures. Target blood pressure less than 140/90 mmHg with mean over 65. Patient currently on oxygen. At baseline he is not on oxygen. CTA ruled out PE. Urine drug screen negative. PT Post recent foot surgery: Podiatry on board. Appreciate CT of the foot. Nonweightbearing. Wound care as per podiatry team. A-fib with RVR: Resolved. Most likely in setting of dehydration and sepsis. Off Cardizem drip. Continue with metoprolol at 50 mg twice daily. Patient currently not not on anticoagulation most likely in setting of anemia. Will do further med rec to confirm. Hyponatremia: Resolved. Most likely in setting of dehydration. Fluid as above. Monitor BMP daily for now. Hypoxia: Resolved. Appreciate CT chest. No consolidation. No PE. Aggressive pulmonary toilet. Out of bed to chair. Oxygen supplementation keeping saturation over 90%. Pulmicort twice daily, DuoNebs every 6 hours. Hypertension: With polyuria will avoid adjusting blood pressure medications for now to avoid hypotension. He is hypertensive, for now continue metoprolol, amlodipine, although at risk of hypotension, monitor blood pressures. Goal blood pressure less than 140/90 mmHg. At home patient is on amlodipine 10 mg daily, metoprolol succinate 75 mg daily. Hold off on amlodipine for now. Uptitrate as for goal blood pressures. Type 2 diabetes mellitus: Appreciate A1c and improving. Decrease Lantus to 15 units daily, insulin sliding scale low-dose protocol. Carb consistent diet. CODE STATUS: Patient's daughter would be the healthcare proxy. Full code. Renal dialysis diabetic diet Protonix will suffice as PUD prophylaxis Heparin 5000 every 12 hourly for DVT prophylaxis Attestations Medical Necessity Statement*: Continue admission for assessment management of renal failure, currently with polyuria, severe constipation with pseudoobstruction, anemia. Diagnoses Fall [id number].XXXA Sepsis A41.9 Cellulitis of left hand L03.114 Acute on chronic renal failure N17.9; N18.9 S/P dialysis catheter insertion Z95.828; Z99.2 Hyponatremia E87.1 Anemia D64.9 Atrial fibrillation with rapid ventricular response I48.91 Essential hypertension I10 Hypertension type: essential hypertension Mixed hyperlipidemia E78.2 Hyperlipidemia type: mixed hyperlipidemia Type 2 diabetes mellitus with other specified complication, with long-term current use of insulin E11.69; Z79.4 Diabetes mellitus type: type 2 Diabetes mellitus terminal supervisor insulin use: with terminal supervisor use Diabetes mellitus complication status: with other specified complication S/P foot surgery, right Z98.890 Rhabdomyolysis M62.82
[2023-05-02] MEDS: polyethylene glycol 3350 Pkt 17 gm PO (23:34)
[2023-05-03] VITALS (8 sets, daily range): BP systolic 167–187; BP diastolic 77–88; PULSE 73–78; RESP 16–19; TEMP 36.6–37.4; O2SAT 94–97
[2023-05-03] MEDS: heparin 5,000 unit/mL INJ 1 mL 5000 UNIT SUBCUT (03:13)
[2023-05-03] MEDS: pantoprazole 40 mg SDV IVP (03:13)
[2023-05-03] MEDS: TRAMadol 50 mg Tablet PO ×2 (05:22→11:19)
[2023-05-03] MEDS: clopidogrel 75 mg Tablet PO (05:22)
[2023-05-03] MEDS: sodium chloride 0.9% 1,000 ML 100 ML IV (05:23)
[2023-05-03] MEDS: ondansetron 2 mg/ML SDV 2 mL 4 MG IVP (06:04)
[2023-05-03 06:11] LABS: Basophils % 0.5 %; Eosinophils # 0.3 10^3/uL (0.0-0.8); Eosinophils % 4.6 %; Hematocrit 25.4 % (37-53); Lymphocytes # 0.7 10^3/uL (0.8-4.8); Lymphocytes % 11.9 %; Mean Corpuscular HGB Conc 33.1 g/dL (30-55); Mean Corpuscular Hemoglobin 31.6 pg (27-33); Mean Corpuscular Volume 95.5 fl (82-101); Monocytes # 0.5 10^3/uL (0.2-0.9); Monocytes % 8.1 %; Neutrophils # 4.32 10^3/uL (1.8-7.7); Neutrophils % 74.4 %; Nucleated Red Blood Cells % 0 %; Platelet Count 297 10^3/cmm (157-399); Red Blood Count 2.66 10^6/uL (3.85-5.65); Red Cell Distribution Width 13.6 % (12.1-15.1); White Blood Count 5.81 10^3/uL (3.29-11.43)
[2023-05-03 06:35] LABS: Anion Gap 13.5 (5-19); Blood Urea Nitrogen 41 mg/dL (8-23); Carbon Dioxide 25 mmol/L (22-29); Chloride 104 mmol/L (98-107); Glomerular Filtration Rate 19.1 mL/min (90-130); Glucose 130 mg/dL (65-115); Magnesium 1.8 mg/dL (1.7-2.3); Osmolality Calculated 300 mOsm/kg (285-295); Potassium 3.5 mmol/L (3.5-5.1); Sodium 139 mmol/L (136-145)
[2023-05-03 06:39] LABS: Glucose Point of Care 126 mg/dL (70-110)
[2023-05-03] MEDS: amlodipine 5 mg Tablet PO (08:55)
[2023-05-03] MEDS: lactulose oral liq 20 gm/30 mL UDC 10 GM PO (08:55)
[2023-05-03] MEDS: piperacillin-tazobactam 3.375 GM in sodium chloride 0.9% (plus) 50 ML IV (08:55)
[2023-05-03] MEDS: potassium chloride ER 20 mEq Tablet 40 MEQ PO (10:33)
[2023-05-03] MEDS: magnesium sulfate premix 2 GM/50 ML PIGGYBACK IV (10:34)
[2023-05-03] MEDS: metoprolol tartrate 50 mg Tablet PO (10:34)
[2023-05-03 11:58] LABS: Glucose Point of Care 144 mg/dL (70-110)
[2023-05-03] MEDS: insulin lispro 100 unit/1 mL SUBCUT (13:27)
--- NOTE | 2023-05-03 16:06 | P.DS_ITS ---
Discharge Providers Date of Admission: 04/25/23 14:15 Date of Discharge: May 03, 2023 Attending Provider at Admission: Janki Newman MD Attending Provider at Discharge: Esteban Amato Primary Care Provider: Pam Diaz MD Diagnoses at Discharge Discharge Diagnosis (1) Fall: Status: Acute (2) Sepsis: Status: Acute (3) Cellulitis of left hand: Status: Acute (4) Acute on chronic renal failure: Status: Acute (5) S/P dialysis catheter insertion: Status: Acute (6) Hyponatremia: Status: Acute (7) Anemia: Status: Acute (8) Atrial fibrillation with rapid ventricular response: Status: Acute (9) Hypertension: Status: Acute Qualifiers: Hypertension type: essential hypertension Qualified Code(s): I10 - Essential (primary) hypertension (10) Hyperlipidemia: Status: Acute Qualifiers: Hyperlipidemia type: mixed hyperlipidemia Qualified Code(s): E78.2 - Mixed hyperlipidemia (11) Diabetes mellitus: Status: Acute Qualifiers: Diabetes mellitus complication status: with other specified complication Diabetes mellitus buttermaker helper insulin use: with buttermaker helper use Diabetes mellitus type: type 2 Qualified Code(s): E11.69 - Type 2 diabetes mellitus with other specified complication; Z79.4 - terminal operator (current) use of insulin (12) S/P foot surgery, right: Status: Acute (13) Rhabdomyolysis: Status: Acute Reason for Visit Reason for Visit: Fall, Weakness Brief History: Wayne Aguilar is a 62 year old male with past medical history of A-fib with RVR, noncompliance, hypertension who underwent split-thickness skin grafting of right lower limb along with right Achilles tendon lengthening and osteotomy of right fourth metatarsal on 03/22 with podiatry. As per the patient he has been at his baseline till today morning when he got out of bed and slipped and fell hands forward. After that he was not able to get up was feeling dizzy. Denies losing consciousness or hitting his head. Denies any seizure-like activity, nausea vomiting, headache, dizziness. Does state that he has been eating and drinking less. Also states that he has been urinating less since yesterday. Denies any dysuria. States he has been taking his medications as prescribed. In the ER he was given septic bolus of fluids, started on Cardizem drip for A- fib with RVR. 5 mg of IV metoprolol and his heart rate settled below 100 and Cardizem drip was weaned off. Patient has been having high-grade fever for which she has received IV Tylenol. Hospital Course Hospital Course found to be in sepsis on admission, additionally anemia, acute kidney injury. was treated with empiric IV antibiotics in the hospital, with Zosyn, vancomycin. Had a contrast and CT which showed diffuse colitis soft tissue edema with no abscess or collections noted. Was assessed by orthopedics with recommendation for medical treatment with antibiotics, elevation. Cellulitis, soft tissue infection gradually improved, erythema decreased, he was able to close his hand, and now mostly resolved. during hospitalization renal function continue to worsen, complicated by oliguria, uremia, started on temporary dialysis. renal function gradually with improvement, has been going through polyuric phase, required replacement of potassium, magnesium, gradually improving, creatinine decreasing. Was assessed and followed by nephrology during hospitalization, currently felt to be doing well enough to safely discharge and follow-up in outpatient clinic with dialysis catheter removed prior to discharge. With prior history of iron deficiency anemia, additionally underwent assessment for anemia here, Hemoccult was collected but was negative. Does have a component of chronic kidney disease with anemia of chronic disease, although source of iron deficiency is not clear at this time. He has had colonoscopy before, but has not ever had a good quality study, states always prep was inadequate. Please refer for additional assessment to look for source of iron deficiency anemia. Had dependent edema of right elbow, which has been improving, please reassess for resolution. Hospital stay also complicated by severe constipation, did not have a bowel movement in over a week, bowel regimen was escalated, did have a bowel movement. had no signs of obstruction on imaging. Please follow-up. During hospitalization additionally noted atrial fibrillation with RVR which had resolved. Hyponatremia on presentation resolved. Continue to optimize hypertension. Diabetes. Physical Exam Narrative: Visited by a friend Const: COMMON NORMALS: patient oriented x3 and alert GENERAL APPEARANCE: cooperative ORIENTATION/CONSCIOUSNESS: Yes awake HENMT: COMMON NORMALS: oropharynx normal Neck/C-Spine: COMMON NORMALS: no JVD Resp: COMMON NORMALS: normal respiratory effort and clear to auscultation bilaterally AUSCULTATION: clear to auscultation bilaterally Cardio: COMMON NORMALS: no JVD, regular rhythm, S1 normal heart sound present, S2 normal heart sound present and No murmurs present (Cardio) RHYTHM: regular rhythm HEART SOUNDS: S1 normal heart sound present and S2 normal heart sound present GI: COMMON NORMALS: Normal to inspection, nondistended, normoactive bowel sounds present, Soft to palpation and non-tender PALPATION: Yes Soft to palpation OTHER: Mild abdominal distention. Extremity: COMMON NORMALS: no joint enlargement and no pedal edema OTHER: Almost resolved swelling of the left hand, wrist. Mild swelling with improvement in the dependent area of the right elbow. No erythema. No tenderness to palpation. Neuro: COMMON NORMALS: patient oriented x3 and moves all extremities SENSORIUM/ORIENTATION: Yes alert Skin: COMMON NORMALS: no rashes or lesions noted GENERAL SKIN EXAM: no rashes or lesions noted Urinary Catheter Management: Rodriguez: Cath Placed During This Visit: yes, but has since been removed by the nurse Reason for Continuing Indwelling Catheter: Decision to DC Catheter Urinary Catheter Date of Insertion: 04/25/23 Urinary Catheter Time of Insertion: 11:41 Date Urinary Catheter Removed: 05/02/23 Time Urinary Catheter Discontinued: 06:13 Discharge Data Studies Completed and Pending Completed Studies During Hospitalization Category Date Time Status CT angio chest w abd pel w con Routine Cat Scan 04/25/23 17:[address] elbow RT wo con* [id number] Routine Cat Scan 04/26/23 12:[address] foot RT wo con* [id number] Routine Cat Scan 04/25/23 17:[address] hand LT w con [id number] Routine Cat Scan 04/25/23 17:33 Completed CXRP [XR chest 1V portable [id number]] Routine Exams 04/27/23 12:57 Completed XR acute abdomen series [id number] Routine Exams 04/29/23 10:25 Completed XR chest 1V portable [id number] Routine Exams 04/26/23 18:04 Completed XR chest 1V portable [id number] Stat Exams 04/25/23 14:54 Completed XR elbow LT 2V 12423 Stat Exams 04/25/23 10:38 Completed XR foot RT min 3V* [id number] Stat Exams 04/25/23 09:56 Completed XR hand LT min 3V* [id number] Stat Exams 04/25/23 10:38 [place] [address] Stat Exams 04/25/23 10:49 Completed Pending at discharge Category Date Time Status Basic Metabolic Panel AM LABS Lab 05/04/23 04:00 Ordered Basic Metabolic Panel AM LABS Lab 05/05/23 04:00 Ordered Complete Blood Count w/Auto AM LABS Lab 05/04/23 04:00 Ordered Complete Blood Count w/Auto AM LABS Lab 05/05/23 04:00 Ordered Magnesium AM LABS Lab 05/04/23 04:00 Ordered Magnesium AM LABS Lab 05/05/23 04:00 Ordered Radiology Impressions Chest/Abdomen/Pelvis CT 04/25/23 17:30 IMPRESSION: Suboptimal opacification of the pulmonary artery makes evaluation of the subsegmental arteries limited. There is no pulmonary embolism in the main, inter lobar proximal segmental arteries. IMPRESSION: No acute findings. COMMENTS: Consistent with the [employer]'s Incidental Findings Committee white paper (J Am Axel Radiol 2018): Any incidental renal lesion less than 1 cm or classified as too small to characterize, or any incidental cystic renal lesion characterized as simple-appearing, is likely benign. No follow-up imaging is recommended for these lesions per consensus recommendations based on imaging criteria. Foot CT 04/25/23 17:30 IMPRESSION: Dorsally displaced transverse fracture of the distal 3rd of the 4th metatarsal. There is associated edema mainly on the plantar aspect of the foot. ADDENDUM: 04/25/231945 THIS REPORT CONTAINS FINDINGS THAT MAY BE CRITICAL TO PATIENT CARE. The findings were verbally communicated via telephone conference with Dr. Castillo at 7:44 PM QUESTIONED DOCUMENTS EXAMINER on 04/25/2023. The findings were acknowledged and understood. Hand CT 04/25/23 17:33 IMPRESSION: Diffuse cellulitis with extensive soft tissue edema with no abscesses or collections noted. Elbow CT 04/26/23 12:01 IMPRESSION: 1. No evidence of joint effusion or irregular osseous erosions/secondary sequela of septic arthritis. 2. Subcutaneous edema along the posterolateral elbow. Chest X-Ray 04/27/23 12:57 IMPRESSION: No acute findings. Low lung volumes. Right central line is in the SVC. Laboratory Results WBC 5.81 10^3/uL (3.29-11.43) 05/03/23 06:04 RBC 2.66 10^6/uL (3.85-5.65) L 05/03/23 06:04 Hgb 8.40 g/dL (11.27-16.99) L 05/03/23 06:04 Hct 25.4 % (37-53) L 05/03/23 06:04 MCV 95.5 fl (82-101) 05/03/23 06:04 MCH 31.6 pg (27-33) 05/03/23 06:04 MCHC 33.1 g/dL (30-55) 05/03/23 06:04 RDW 13.6 % (12.1-15.1) 05/03/23 06:04 Plt Count 297 10^3/cmm (157-399) 05/03/23 06:04 MPV 9.0 fL (7.4-10.4) 05/03/23 06:04 Neut % (Auto) 74.4 % 05/03/23 06:04 Lymph % (Auto) 11.9 % 05/03/23 06:04 [place] % (Auto) 8.1 % 05/03/23 06:04 Eos % (Auto) 4.6 % 05/03/23 06:04 Baso % (Auto) 0.5 % 05/03/23 06:04 Reticulocyte % (Auto) 0.7 % (0.5-2.0) 04/26/23 03:40 Neut # (Auto) 4.32 10^3/uL (1.8-7.7) 05/03/23 06:04 Lymph # (Auto) 0.7 10^3/uL (0.8-4.8) L 05/03/23 06:04 [place] # (Auto) 0.5 10^3/uL (0.2-0.9) 05/03/23 06:04 Eos # (Auto) 0.3 10^3/uL (0.0-0.8) 05/03/23 06:04 Baso # (Auto) 0.0 10^3/uL (0.0-0.1) 05/03/23 06:04 Nucleated RBC % (auto) 0 % 05/03/23 06:04 Nucleated RBCs # 0.0 /100WBC 05/03/23 06:04 ESR 41 mm/hr (0-10) H 04/25/23 08:48 Sodium 139 mmol/L (136-145) 05/03/23 06:04 Potassium 3.5 mmol/L (3.5-5.1) 05/03/23 06:04 Chloride 104 mmol/L (98-107) 05/03/23 06:04 Carbon Dioxide 25 mmol/L (22-29) 05/03/23 06:04 Anion Gap 13.5 (5-19) 05/03/23 06:04 BUN 41 mg/dL (8-23) H 05/03/23 06:04 Creatinine 3.3 mg/dL (0.7-1.2) H 05/03/23 06:04 GFR Calculation 19.1 mL/min (90-130) L 05/03/23 06:04 Glucose 130 mg/dL (65-115) H 05/03/23 06:04 POC Glucose 144 mg/dL (70-110) H 05/03/23 11:04 Estimat Average Glucose 131 04/26/23 03:40 Hemoglobin A1c 6.2 % (4.0-6.0) H 04/26/23 03:40 Calculated Osmolality 300 mOsm/kg (285-295) H 05/03/23 06:04 Lactic Acid 1.7 mmol/L (0.5-2.2) 04/25/23 09:22 Calcium 9.0 mg/dL (8.5-10.5) 05/03/23 06:04 Phosphorus 3.9 mg/dL (2.5-4.5) 05/02/23 05:30 Magnesium 1.8 mg/dL (1.7-2.3) 05/03/23 06:04 Iron 14 ug/dL (59-158) L 04/25/23 08:48 TIBC 159 mcg/dl 04/25/23 08:48 % Saturation 8.8 % (20-50) L 04/25/23 08:48 Unsat Iron Binding 145 ug/dL (112-347) 04/25/23 08:48 Total Bilirubin 1.1 mg/dL (0.15-1.2) 04/29/23 05:25 AST 36 U/L (0-40) 04/29/23 05:25 ALT 28 U/L (0-41) 04/29/23 05:25 Alkaline Phosphatase 117 U/L (40-130) 04/29/23 05:25 Lactate Dehydrogenase 145 U/L (135-225) 04/26/23 03:40 Creatine Kinase 216 U/L (39-308) 04/28/23 03:49 Troponin T Baseline 110 ng/L (0-15) H* 04/28/23 08:18 Troponin T 120 Minute 104.7 ng/L (0-15) H 04/28/23 10:13 Delta Troponin T -5.3 ABS# (0-10) L 04/28/23 10:13 C-Reactive Protein 137.9 mg/L (0.0-4.9) H 04/28/23 03:49 NT-Pro-B Natriuret Pep 6489 pg/mL (0-125) H 04/26/23 16:43 Total Protein 7.7 g/dL (6.6-8.7) 04/29/23 05:25 Albumin 3.4 g/dL (3.5-5.2) L 04/29/23 05:25 Globulin 4.3 g/dL (1.3-4.6) 04/29/23 05:25 Triglycerides 74 mg/dL (0-150) 04/26/23 03:40 Cholesterol 64 mg/dL (0-200) 04/26/23 03:40 LDL Cholesterol, Calc 32 mg/dL (50-129) L 04/26/23 03:40 HDL Cholesterol 17 mg/dL (60-100) L 04/26/23 03:40 LDL/HDL Ratio 1.88 RATIO (0.00-3.22) 04/26/23 03:40 Cholesterol/HDL Ratio 3.76 mg/dL (1.0-5.00) 04/26/23 03:40 Vitamin B12 500 pg/mL (232-1245) 04/25/23 08:48 Folate > 20.0 ng/mL (4.5-32.2) 04/26/23 03:40 Procalcitonin 2.13 ng/mL (0-0.5) H 04/26/23 03:40 TSH 1.20 uIU/mL (0.27-4.20) 04/25/23 08:48 Urine Color Yellow (Yellow) 04/25/23 11:10 Urine Appearance Sl hazy (CLEAR) A 04/25/23 11:10 Urine pH 5 (5-7) 04/25/23 11:10 Ur Specific [place] 1.020 (1.005-1.030) 04/25/23 11:10 Urine Protein 3+ (Negative) H 04/25/23 11:10 Urine Glucose (UA) Norm (Normal) 04/25/23 11:10 Urine Ketones Negative (Negative) 04/25/23 11:10 Urine Blood 3+ (Negative) H 04/25/23 11:10 Urine Nitrate Negative (Negative) 04/25/23 11:10 Urine Bilirubin Neg (Negative) 04/25/23 11:10 Urine Urobilinogen 1 mg/dL (Negative) H 04/25/23 11:10 Ur Leukocyte Esterase Negative (Negative) 04/25/23 11:10 Urine RBC 0-4 /hpf (0-2) H 04/25/23 11:10 Urine WBC None /hpf (0-5) 04/25/23 11:10 Ur Eosinophil Smear 0 (0-0) 04/25/23 17:41 Ur Squamous Epith Cells None /hpf (0-5) 04/25/23 11:10 Amorphous Sediment 1+ /hpf 04/25/23 11:10 Urine Bacteria Trace /hpf (NONE) 04/25/23 11:10 Urine Mucus 2+ /hpf 04/25/23 11:10 Urine Eosinophils No eosinophils seen 04/25/23 17:41 Ur Random Sodium 43 mmol/L 04/25/23 17:41 Ur Random Potassium 41 mmol/L 04/25/23 17:41 Ur Random Chloride 36 mmol/L 04/25/23 17:41 Urine Creatinine 144 mg/dL (39-259) 04/25/23 17:41 Nasal Influ A H1 2008 PCR Not detected (NOT DETECT) 04/25/23 22:58 Urine Opiates Screen Positive ng/mL (Negative) H 04/25/23 11:10 Ur Barbiturates Screen Negative ng/mL (Negative) 04/25/23 11:10 Ur Phencyclidine Scrn Negative ng/mL (Negative) 04/25/23 11:10 Ur Amphetamines Screen Negative ng/mL (Negative) 04/25/23 11:10 U Benzodiazepines Scrn Negative ng/mL (Negative) 04/25/23 11:10 Urine Cocaine Screen Negative ng/mL (Negative) 04/25/23 11:10 U Marijuana (THC) Screen Negative ng/mL (Negative) 04/25/23 11:10 Ethyl Alcohol < 10 mg/dL (0-10) 04/25/23 08:48 Serum Ketones Negative (Negative) 04/25/23 08:48 Adenovirus (PCR) Not detected (NOT DETECT) 04/25/23 22:58 C. pneumoniae DNA (PCR) Not detected (NOT DETECT) 04/25/23 22:58 Coronavirus 229E (PCR) Not detected (NOT DETECT) 04/25/23 22:58 Hep Bs Antigen Non-reactive (Nonreactive) 04/27/23 03:49 Hep Bs Antibody < 3.5 (11.5-1000) L 04/27/23 03:49 Human Metapneumovir PCR Not detected (NOT DETECT) 04/25/23 22:58 Influenza A (H1) PCR Not detected (NOT DETECT) 04/25/23 22:58 Influenza A (H3) PCR Not detected (NOT DETECT) 04/25/23 22:58 Influenza Type A Ag negative (Negative) 04/25/23 12:47 Influenza Type A (PCR) Not detected (NOT DETECT) 04/25/23 22:58 Influenza Type B Ag negative (Negative) 04/25/23 12:47 Influenza Type B (PCR) Not detected (NOT DETECT) 04/25/23 22:58 M. pneumoniae (PCR) Not detected (NOT DETECT) 04/25/23 22:58 Parainfluenza 1 (PCR) Not detected (NOT DETECT) 04/25/23 22:58 Parainfluenza 2 (PCR) Not detected (NOT DETECT) 04/25/23 22:58 Parainfluenza 3 (PCR) Not detected (NOT DETECT) 04/25/23 22:58 Parainfluenza 4 (PCR) Not detected (NOT DETECT) 04/25/23 22:58 RSV Type A (PCR) Not detected (NOT DETECT) 04/25/23 22:58 RSV Type B (PCR) Not detected (NOT DETECT) 04/25/23 22:58 Entero/Rhino (PCR) Not detected (NOT DETECT) 04/25/23 22:58 SARS-CoV-2 (PCR) Not detected (NOT DETECT) 04/25/23 22:58 MRSA (PCR) Not detected (NOT DETECTED) 04/28/23 11:15 Blood Type A Positive 04/26/23 16:43 Rho(D) Type Rh positive 04/26/23 16:43 Antibody Screen Negative 04/26/23 16:43 Crossmatch See Detail 04/26/23 16:43 Vitals Last Vital Signs Temp 97.9 F 05/03/23 12:00 Pulse 73 05/03/23 12:00 Resp 19 H 05/03/23 12:00 BP 187/88 05/03/23 12:00 Pulse Ox 96 05/03/23 11:50 O2 Del Method Room Air 05/03/23 11:50 O2 Flow Rate 2 04/28/23 14:58 Discharge Plan Discharge Patient Disposition: Home Condition: Stable Prescriptions: New lactulose 20 gram/30 mL Solution 10 g PO BID Qty: 1200 2RF cephalexin 250 mg capsule 250 mg PO Q8H 5 Days Qty: 15 0RF metronidazole 500 mg tablet 500 mg PO Q8H 5 Days Qty: 15 0RF potassium chloride 20 mEq tablet extended release 20 meq PO DAILY Qty: 7 0RF magnesium oxide 500 mg tablet 500 mg PO DAILY Qty: 14 0RF Continued nitroglycerin 0.4 mg tablet, sublingual 0.4 mg SUBLINGUAL Q5M PRN (Reason: chest pain) Qty: 25 3RF Rx Instructions: do not exceed 3 doses per episode ([facility]) Diabetic Shoes with 3 sets of inserts See Rx Instructions .ROUTE .MEDSUPPLY Qty: 1 0RF Rx Instructions: As directed ([facility]) Walker See Rx Instructions .Route .MEDSUPPLY Qty: 1 0RF Rx Instructions: As directed ([facility]) carbon fiber ottobock bilaterally- AFO See Rx Instructions .Route .MEDSUPPLY Qty: 1 0RF Rx Instructions: As directed by [facility] ([facility]) AFO to right See Rx Instructions .Route .MEDSUPPLY Qty: 1 0RF Rx Instructions: As directed by [facility] ([facility]) Custom Molded Accomodative Orthotics and Diabetic Shoes See Rx Instructions .Route .MEDSUPPLY Qty: 1 0RF Rx Instructions: As directed, custom made by [facility] ([facility]) Bedside commode See Rx Instructions .Route .MEDSUPPLY Qty: 1 0RF Rx Instructions: As directed BY HOME ([facility]) Shower chair See Rx Instructions .Route .MEDSUPPLY Qty: 1 0RF Rx Instructions: As directed by HOME (DME) Wheelchair with elevated foot rest See Rx Instructions .Route .MEDSUPPLY Qty: 1 0RF Rx Instructions: As directed by HOME polyethylene glycol 3350 [Miralax] 17 gram Powder In Packet 17 g PO DAILY cholecalciferol (vitamin D3) 25 mcg (1,000 unit) Tablet 50 mcg PO QAM aspirin [[place] Low Dose Aspirin] 81 mg Tablet,Delayed Release (Dr/Ec) 81 mg PO QAM 30 Days Qty: 30 3RF (DME) blood pressure monitor [Blood Pressure Kit] Kit See Rx Instructions .Route Qty: 1 0RF Rx Instructions: As directed insulin glargine [Lantus Solostar U-100 Insulin] 100 unit/mL (3 mL) insulin pen 18 unit SUBCUT BEDTIME atorvastatin [Lipitor] 40 mg Tablet 80 mg PO BEDTIME pantoprazole 40 mg tablet,delayed release (DR/EC) 40 mg PO BID alprostadil 10 mcg Kit See Rx Instructions .ROUTE .COMPLEX Rx Instructions: 10 mcg intra-cavernosally as directed tramadol 50 mg tablet 50 mg PO Q4H PRN (Reason: pain) B complex-vitamin C-folic acid 1 mg Tablet 1 tab PO DAILY omega-3 fatty acids 1,000 mg Capsule 2,000 mg PO BID acetaminophen 500 mg Tablet 1,500 mg PO QAM sildenafil 100 mg Tablet 100 mg PO .EVERY 5 DAYS PRN (Reason: Erectile Dysfunction) carboxymethylcellulose sodium 0.5 % Drops 2 drp ophthalmic (eye) TID PRN (Reason: redness) ferrous sulfate [iron] 325 mg (65 mg iron) Tablet 325 mg PO QAM lidocaine 5 % Adhesive Patch,Medicated 1 patch topical DAILY PRN (Reason: Pain) Rx Instructions: on for 12 hours off for 12 hours glucose 4 gram Tablet,Chewable 4 g PO Q15M PRN (Reason: for low blood sugar) Rx Instructions: until symptoms of low blood sugar are controlled docusate sodium [Colace] 100 mg Capsule 200 mg PO BID insulin aspart U-100 100 unit/mL (3 mL) Insulin Pen 4 unit SUBCUT TID tadalafil 20 mg Tablet 20 mg PO DAILY PRN (Reason: Erectile Dysfunction) Rx Instructions: administer approximately 30min before sexual activity; do not use more than 1 dose per 24hrs semaglutide 1 mg/dose (2 mg/1.5 mL) Pen Injector 1 mg SUBCUT Q7D Rx Instructions: on sundays clopidogrel 75 mg tablet 75 mg PO QAM oxycodone 5 mg tablet 5 mg PO Q4H PRN (Reason: pain) Qty: 10 0RF Changed metoprolol succinate 50 mg tablet extended release 24 hr 50 mg PO DAILY Qty: 1 0RF Rx Instructions: Dose change amlodipine 10 mg Tablet 5 mg PO QAM Qty: 1 0RF Rx Instructions: Dose change Discontinued hydrochlorothiazide 25 mg Tablet 12.5 mg PO DAILY Discharge Orders: Discharge Order (Routine); Ordered 05/03/23 Ordered By: Esteban Amato Referrals: Nephrology [Provider Group] - 4-7 days Pam Diaz MD [Primary Care Provider] - 4-7 days Discharge Diet: As Directed and Diabetic Patient Instructions: Diabetes and Diet, Cephalexin (By mouth), Potassium Chloride (By mouth), Metronidazole (By mouth), Lactulose (By mouth), Magnesium Oxide (By mouth), Cellulitis (GEN), Dialysis Diet (DC), Dialysis Diet (GEN), Hemodialysis (DC), Opioid Safety Activity Restrictions/Additional Instructions: Continue renal dialysis diabetic diet as per included instructions. Follow-up with your primary provider as well as with nephrology to reassess your kidney function for continued improvement. As well as to reassess electrolytes, including taking potassium, magnesium. Given placement when using supplementation due to mildly low levels of these 2 electrolytes. Follow-up with primary provider for reassessment of continued improvement of cellulitis of the left hand. Dependent swelling of the left elbow. Continue bowel regimen to work on constipation. Have your primary provider follow-up and adjust as needed. Follow-up with your primary provider regarding iron deficiency anemia for further workup including endoscopy to identify source of iron deficiency. Continue iron supplementation. Follow-up with your primary provider with regards to atrial fibrillation, once anemia is figured out consider anticoagulation for stroke risk reduction. Follow-up with your primary doctor for assessment of low sodium, so far this has resolved. Follow-up with your primary doctor for reassessment of high blood pressure, diabetes. Return to the hospital in case of any worsening or new concerning symptoms. Never take nitroglycerin together with sildenafil or tadalafil. Discharge Attestations Time Spent in Discharge Care*: greater than 30 min Quality Metrics Clinical Quality Measures [ No reported AMI, CVA or VTE this stay] Coding Level of Care Code 33507 Total time (in minutes) for Discharge: 50 Diagnoses Fall W19.XXXA Sepsis A41.9 Cellulitis of left hand L03.114 Acute on chronic renal failure N17.9; N18.9 S/P dialysis catheter insertion Z95.828; Z99.2 Hyponatremia E87.1 Anemia D64.9 Atrial fibrillation with rapid ventricular response I48.91 Essential hypertension I10 Hypertension type: essential hypertension Mixed hyperlipidemia E78.2 Hyperlipidemia type: mixed hyperlipidemia Type 2 diabetes mellitus with other specified complication, with long-term current use of insulin E11.69; Z79.4 Diabetes mellitus complication status: with other specified complication Diabetes mellitus buttermaker helper insulin use: with intermediate use Diabetes mellitus type: type 2 S/P foot surgery, right Z98.890 Rhabdomyolysis M62.82
--- NOTE | 2023-05-03 16:41 | PC.NURSE ---
Dialysis port removed from right side of neck. Pt tolerated well
== END 2023-05-03 16:45 | disposition home health service (06) | DRG 872 ==
LOC: ER 12:02 → ER IP 17:08 → ICU 17:17 → MEDSURG 04-28 17:13
PROVIDERS: Hospitalist; Internal Medicine; Student in an Organized Health Care Education/Training Program; Admitting Provider Student in an Organized Health Care Education/Training Program; Emergency Provider Family Medicine; PCP Family Medicine; Visit Provider Internal Medicine
DX: A41.9 Sepsis, unspecified organism (principal); L03.113 Cellulitis of right upper limb; N17.9 Acute kidney failure, unspecified; E87.1 Hypo-osmolality and hyponatremia; M62.82 Rhabdomyolysis; E87.20 Acidosis, unspecified; W19.XXXA Unspecified fall, initial encounter; I12.9 Hypertensive chronic kidney disease with stage 1 through stage 4 chronic kidney disease, or unspecified chronic kidney disease; E11.22 Type 2 diabetes mellitus with diabetic chronic kidney disease; N18.9 Chronic kidney disease, unspecified; D63.1 Anemia in chronic kidney disease; I48.91 Unspecified atrial fibrillation; E78.2 Mixed hyperlipidemia; S92.911A Unspecified fracture of right toe(s), initial encounter for closed fracture; K59.00 Constipation, unspecified; R09.02 Hypoxemia; E86.0 Dehydration; M54.16 Radiculopathy, lumbar region; E11.40 Type 2 diabetes mellitus with diabetic neuropathy, unspecified; D50.9 Iron deficiency anemia, unspecified; Z98.890 Other specified postprocedural states; Z11.52 Encounter for screening for COVID-19; Z89.421 Acquired absence of other right toe(s); Z89.422 Acquired absence of other left toe(s); Z79.02 Long term (current) use of antithrombotics/antiplatelets; Z86.73 Personal history of transient ischemic attack (TIA), and cerebral infarction without residual deficits; Z79.4 Long term (current) use of insulin; Z79.82 Long term (current) use of aspirin
CPT/HCPCS: 36415; 36416; 36430; 51702; 71045; 71275; 73060; 73070; 73120; 73130; 73200; 73201; 73630; 73700; 74022; 74177; 80048; 80053; 80061; 80306; 80307; 81001; 82009; 82274; 82436; 82550; 82570; 82607; 82746; 82962; 83036; 83540; 83550; 83605; 83615; 83735; 83880; 84100; 84133; 84145; 84300; 84443; 84484; 85014; 85018; 85025; 85045; 85651; 85999; 86140; 86403; 86706; 86850; 86900; 86920; 87040; 87340; 87486; 87581; 87633; 87635; 87641; 87804; 90935; 93005; 94640; 94664; 96365; 96367; 96372; 96375; 96376; 97530; 99285; C9113; J0131; J1644; J1756; J1815; J1940; J1956; J2270; J2405; J2543; J3370; J3475; J3490; J7030; J7050; J7626; P9016; P9046; Q3014; Q9967

== ENCOUNTER → 2023-05-07 09:12 | Outpatient (BNVA) | payer OTHER, SELFPAY | PROVIDERS: PCP Family Medicine; Visit Provider Podiatrist Foot & Ankle Surgery | DX: M79.671 Pain in right foot (principal); M25.571 Pain in right ankle and joints of right foot; I73.9 Peripheral vascular disease, unspecified; E11.42 Type 2 diabetes mellitus with diabetic polyneuropathy; Z79.4 Long term (current) use of insulin | CPT/HCPCS: 73600; 73630; 99024; 99213 ==

== ENCOUNTER → 2023-05-21 08:54 | Outpatient (BNVA) | payer OTHER, SELFPAY | PROVIDERS: PCP Family Medicine; Visit Provider Podiatrist Foot & Ankle Surgery | DX: Z98.890 Other specified postprocedural states (principal); M25.571 Pain in right ankle and joints of right foot; I73.9 Peripheral vascular disease, unspecified; E11.42 Type 2 diabetes mellitus with diabetic polyneuropathy; Z79.4 Long term (current) use of insulin | CPT/HCPCS: 73630; 99213 ==

== ENCOUNTER 2023-06-06 06:00 | Outpatient (RCR) | payer OTHER, SELFPAY | END 2023-06-12 23:59 | disposition home or self-care (01) | LOC: SPT 06:00 | PROVIDERS: PCP Family Medicine; Visit Provider Podiatrist Foot & Ankle Surgery | DX: M25.571 Pain in right ankle and joints of right foot (principal); M65.871 Other synovitis and tenosynovitis, right ankle and foot | CPT/HCPCS: 97110; 97112; 97162 ==

== ENCOUNTER 2023-06-13 06:00 | Outpatient (RCR) | payer OTHER, SELFPAY | END 2023-07-11 23:59 | disposition home or self-care (01) | LOC: SPT 06:00 | PROVIDERS: PCP Family Medicine; Visit Provider Podiatrist Foot & Ankle Surgery | DX: M25.571 Pain in right ankle and joints of right foot (principal); R29.6 Repeated falls; R26.89 Other abnormalities of gait and mobility; R53.1 Weakness | CPT/HCPCS: 97110; 97112 ==

== ENCOUNTER 2023-06-18 13:48 | Outpatient (CLI) | payer OTHER, SELFPAY ==
[2023-06-18 14:42] LABS: Creatinine Urine, Random 51 mg/dL (39-259); Microalbumin Random Urine 24 ug/dL (0-20)
[2023-06-18 14:44] LABS: Microalbum Creatinine Ratio Ur 471 mg/dL (0-20)
== END 2023-06-18 13:49 | disposition home or self-care (01) ==
PROVIDERS: PCP Family Medicine; Visit Provider Registered Nurse
DX: N18.31 Chronic kidney disease, stage 3a (principal)
CPT/HCPCS: 82044

== ENCOUNTER → 2023-06-20 07:12 | Outpatient (BNVA) | payer OTHER, SELFPAY | PROVIDERS: PCP Family Medicine; Visit Provider Podiatrist Foot & Ankle Surgery | DX: I73.9 Peripheral vascular disease, unspecified (principal); E11.42 Type 2 diabetes mellitus with diabetic polyneuropathy; L30.9 Dermatitis, unspecified; Z79.4 Long term (current) use of insulin | CPT/HCPCS: 99213 ==

== ENCOUNTER → 2023-06-28 10:35 | Outpatient (BNVA) | payer OTHER, SELFPAY | PROVIDERS: PCP Family Medicine; Visit Provider Nurse Practitioner Family | DX: I10 Essential (primary) hypertension (principal); I48.91 Unspecified atrial fibrillation | CPT/HCPCS: 99214 ==

== ENCOUNTER 2023-07-12 06:00 | Outpatient (RCR) | payer OTHER, SELFPAY | END 2023-07-26 23:59 | disposition home or self-care (01) | LOC: SPT 06:00 | PROVIDERS: PCP Family Medicine; Visit Provider Podiatrist Foot & Ankle Surgery | DX: M25.571 Pain in right ankle and joints of right foot (principal) | CPT/HCPCS: 97110; 97112 ==

== ENCOUNTER 2023-07-26 10:36 | Outpatient (CLI) | payer OTHER, SELFPAY ==
--- NOTE | 2023-07-26 10:40 | XRR_ITS ---
PROCEDURE INFORMATION: Exam: XR Osseous Survey; Complete Axial And Appendicular Skeleton Exam date and time: 07/26/2023 10:56 AM Age: 62 years old Clinical indication: Pain and condition or disease; Condition/disease: Monoclonal gammopathy, pain: Arm pain; Prior surgery; Surgery date: 6+ months; Surgery type: RT foot; Additional info: Monoclonal gammopathy, arm pain TECHNIQUE: Imaging protocol: Radiological examination. Complete osseous survey. Axial and appendicular skeleton. COMPARISON: CT hand LT w con [id number] 04/25/2023 6:05 PM FINDINGS: AP and lateral views of the skull: Negative for lytic or blastic lesions patient has pegs for dental implants in the mandible centrally. The patient is edentulous AP and lateral views of the cervical spine: No lytic or blastic bony lesions are detected. There are no fractures or subluxations. There is degenerative disc disease and spondylosis at C5-C6 and C6-C7. Soft tissue calcification in the neck is likely related to the carotid system. AP view of the chest: The heart size is within normal limits. The lungs are clear. No lytic or blastic bony lesions are detected. AP views of the humeri. There are degenerative changes in the right acromioclavicular joint in the right glenohumeral joint. There is a probable bone island in the humeral head. No definite lytic or blastic lesions are detected. 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 There are degenerative changes in the left acromioclavicular joint and glenohumeral joint. No definite lytic or blastic lesions are detected. 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 There is mild anterior wedge configuration of several thoracic vertebral bodies which appear chronic. There is kyphosis. There is multilevel degenerative disc disease and spondylosis. AP view of the abdomen and pelvis and lateral view of the lumbar spine: There is multilevel degenerative disc disease and spondylosis. There is scoliosis convex left. There is retrolisthesis L1-L2 measured at 5 mm. There is also 5 mm retrolisthesis L2-L3 and 3 mm retrolisthesis L3-L4. There is 8 mm anterolisthesis L5-S1. No acute fractures are detected in the lumbar spine. There are no lytic or blastic lesions detected in the spine or the bony pelvis. AP views of each femur: No lytic lesions are detected. There are sclerotic lesions in the femoral neck which I would favor are more likely bone islands myeloma lesions. Likewise, there is a sclerotic lesion in the distal right lateral femoral condyle in the distal left medial femoral condyle which are favored to be bone islands. AP and lateral tib fibs No lytic or blastic lesions are detected. There is an old healed fracture deformity involving the proximal right fibula. There are degenerative osteophytes in both knees. AP views of both feet: There is an old fracture deformity involving the distal 5th metatarsal. There is attenuation of the 5th metatarsal head and neck which may be due to posttraumatic bony resorption. The edges appear smooth. There is resulting foreshortening of the 5th digit. 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 No definite lytic or blastic bony lesions are detected left foot. There is asymmetric osteopenia involving the entire right foot relative to left which may be due to disuse or perhaps the result reflex sympathetic dystrophy from previous trauma. AP and lateral views of each forearm there are no definite lesions here. Focal area of sclerosis in the capitellum is favored to be a bone island AP views of each hand. There are subchondral cysts present. There are no lytic or blastic bony lesions detected small foreign bodies are noted in the soft tissues distal medial left forearm and adjacent to the wrist. XR/XR bone survey* [id number] Impression: 1. No definite myeloma lesions detected 2. Degenerative changes in the spine as described. Mild anterior wedge configuration multiple thoracic vertebral bodies which appear chronic. No acute fractures detected 3. See comments above concerning abnormalities in the right foot.
== END 2023-07-26 10:37 | disposition home or self-care (01) ==
LOC: RAD 10:38
PROVIDERS: PCP Family Medicine; Visit Provider Internal Medicine Medical Oncology
DX: D47.2 Monoclonal gammopathy (principal); M79.603 Pain in arm, unspecified; M47.817 Spondylosis without myelopathy or radiculopathy, lumbosacral region; M51.37 Other intervertebral disc degeneration, lumbosacral region; M48.54XA Collapsed vertebra, not elsewhere classified, thoracic region, initial encounter for fracture; M85.871 Other specified disorders of bone density and structure, right ankle and foot; M47.812 Spondylosis without myelopathy or radiculopathy, cervical region
CPT/HCPCS: 77075; 99214

== ENCOUNTER 2023-07-29 08:02 | Outpatient (CLI) | payer OTHER, SELFPAY ==
--- NOTE | 2023-07-29 08:45 | USCV_ITS ---
Wayne Aguilar Age: 62 Gender: M : 1960 Exam Date: 07/29/2023 09:01 Ordering Phys: Matt Glynn MD Technologist: YA [place] [facility] [place]: SOB, tachycardia BP: 131 / 77 HR: 229 Rhythm: Sinus Technical Quality: Adequate MEASUREMENTS (Male / Female) Normal Values 2D ECHO LV Diastolic Diameter PLAX 3.7 cm 4.2 - 5.9 / 3.9 - 5.3 cm IVS Diastolic Thickness 1.8 cm 0.6 - 1.0 / 0.6 - 0.9 cm IVS Systolic Thickness 2.1 cm LVPW Diastolic Thickness 1.6 cm 0.6 - 1.0 / 0.6 - 0.9 cm LVPW Systolic Thickness 2.1 cm LVOT Diameter 2.0 cm LV Ejection Fraction 2D Teich 58.4 % LV Ejection Fraction MOD 2C 61.4 % LV Ejection Fraction 2C AL 64.1 % LA Diameter 3.5 cm RA Systolic Volume 4C AL 25.9 ml RA Systolic Volume 4C MOD 25.4 ml Aorta at Sinotubular Diameter 2.8 cm M-MODE LA Ao Ratio MM 1.4 AV Cusp Separation MM 1.8 cm DOPPLER AV Peak Velocity 120.0 cm/s LVOT Peak Velocity 91.0 cm/s AV Area Cont Eq vti 2.3 cm squared AV Area Cont Eq pk 2.4 cm squared MV Peak Velocity 137.0 cm/s MV Area PHT 5.9 cm squared Mitral E to A Ratio 0.1 TV Peak Velocity 93.5 cm/s TR Peak Velocity 109.0 cm/s TR Peak Gradient 4.8 mmHg TR Mean Velocity 70.0 cm/s TR Mean Gradient 2.3 mmHg TR Velocity Time Integral 14.9 cm Right Atrial Pressure 3.0 mmHg Pulmonary Artery Systolic Pressu 7.8 mmHg PV Peak Velocity 98.5 cm/s RV Ejection Time 0.3 s FINDINGS Left Ventricle Left ventricle is normal in size. LV systolic function is normal with EF of 60 to 65%. No regional wall motion abnormalities are seen. Left ventricular hypertrophy seen Right Ventricle Normal in size and function Right Atrium Normal in size Left Atrium Normal in size Mitral Valve Mild mitral annular calcification seen. Trace mitral regurgitation. Aortic Valve Aortic valve is thickened. No significant stenosis or regurgitation seen. Tricuspid Valve Mild tricuspid regurgitation. Insufficient TR jet to calculate RVSP. Pulmonic Valve Not well visualized Pericardium Normal Aorta Normal in size IVC Not well visualized CONCLUSIONS LV systolic function is normal with EF of 60 to 65%. Left ventricular hypertrophy noted Trace mitral regurgitation Mild tricuspid regurgitation No comparison studies are available Hussain Flores MD (Electronically Signed) Final Date: 11 August 2023 11:09 S
== END 2023-07-29 08:03 | disposition home or self-care (01) ==
LOC: RAD 08:03
PROVIDERS: PCP Family Medicine; Visit Provider Internal Medicine Medical Oncology
DX: R06.02 Shortness of breath (principal); R00.0 Tachycardia, unspecified; I07.1 Rheumatic tricuspid insufficiency
CPT/HCPCS: 93306

== ENCOUNTER 2023-08-05 14:30 | Oncology outpatient (recurring) (ONCR) | payer OTHER, SELFPAY ==
[2023-07-15 15:18] LABS: Basophils % 0.9 %; Eosinophils # 0.7 10^3/uL (0.0-0.8); Eosinophils % 15.5 %; Hematocrit 27.2 % (37-53); Lymphocytes % 22.2 %; Mean Corpuscular HGB Conc 33.8 g/dL (30-55); Mean Corpuscular Hemoglobin 31.6 pg (27-33); Mean Corpuscular Volume 93.5 fl (82-101); Monocytes # 0.3 10^3/uL (0.2-0.9); Monocytes % 6.8 %; Neutrophils # 2.48 10^3/uL (1.8-7.7); Neutrophils % 53.9 %; Nucleated Red Blood Cells % 0 %; Platelet Count 209 10^3/cmm (157-399); Red Blood Count 2.91 10^6/uL (3.85-5.65); Red Cell Distribution Width 13.4 % (12.1-15.1); White Blood Count 4.59 10^3/uL (3.29-11.43)
[2023-07-15 15:20] LABS: Erythrocyte Sedimentation Rate 4 mm/hr (0-10)
[2023-07-15 15:50] LABS: LAB Peripheral Smear Sent for Review
[2023-07-15 15:53] LABS: Alanine Aminotransferase 42 U/L (0-41); Albumin Level 3.6 g/dL (3.5-5.2); Alkaline Phosphatase 74 U/L (40-130); Anion Gap 9.3 (5-19); Aspartate Amino Transferase 25 U/L (0-40); Blood Urea Nitrogen 26 mg/dL (8-23); Calcium 8.3 mg/dL (8.5-10.5); Carbon Dioxide 22 mmol/L (22-29); Chloride 104 mmol/L (98-107); Creatinine Clr Calc Pharmacy 62.1682; Globulin 4.2 g/dL (1.3-4.6); Glomerular Filtration Rate 51.4 mL/min (90-130); Glucose 233 mg/dL (65-115); Iron 83 ug/dL (59-158); Osmolality Calculated 284 mOsm/kg (285-295); Percent Saturation 53.8 % (20-50); Potassium 4.3 mmol/L (3.5-5.1); Sodium 131 mmol/L (136-145); Total Bilirubin 0.2 mg/dL (0.15-1.2); Total Iron Binding Capacity 154 mcg/dl; Total Protein 7.8 g/dL (6.6-8.7); Unsaturated Iron Binding 71 ug/dL (112-347)
[2023-07-15 16:05] LABS: Vitamin B12 420 pg/mL (232-1245)
[2023-07-15 16:16] LABS: Ferritin 1132 ng/mL (30-400)
[2023-07-15 17:32] LABS: Folate Level > 20.0 ng/mL (4.5-32.2)
[2023-07-16 13:10] LABS: PROTEIN, TOTAL 8.1 g/dL (6.1-8.1)
[2023-07-17 09:49] LABS: ABNORMAL PROTEIN BAND 1 2.3 g/dL (NONE DETECTED); ALBUMIN 4.2 g/dL (3.8-4.8); ALPHA 1 GLOBULIN 0.3 g/dL (0.2-0.3); ALPHA 2 GLOBULIN 0.5 g/dL (0.5-0.9); BETA 1 GLOBULIN 0.3 g/dL (0.4-0.6); BETA 2 GLOBULIN 0.2 g/dL (0.2-0.5); GAMMA GLOBULIN 2.7 g/dL (0.8-1.7)
[2023-07-17 16:10] LABS: KAPPA LIGHT CHAIN, FREE, SERUM 33.6 mg/L (3.3-19.4); KAPPA/LAMBDA LIGHT CHAINS FREE 1.65 (0.26-1.65); LAMBDA LIGHT CHAIN, FREE, SERU 20.4 mg/L (5.7-26.3)
[2023-08-05 15:12] LABS: Basophils % 0.6 %; Eosinophils # 0.6 10^3/uL (0.0-0.8); Eosinophils % 11.9 %; Lymphocytes # 1.4 10^3/uL (0.8-4.8); Mean Corpuscular HGB Conc 33.7 g/dL (30-55); Mean Corpuscular Hemoglobin 32.4 pg (27-33); Mean Corpuscular Volume 96.2 fl (82-101); Mean Platelet Volume 9.3 fL (7.4-10.4); Monocytes # 0.3 10^3/uL (0.2-0.9); Monocytes % 6.4 %; Neutrophils # 2.69 10^3/uL (1.8-7.7); Neutrophils % 53.5 %; Nucleated Red Blood Cells % 0 %; Platelet Count 250 10^3/cmm (157-399); Red Blood Count 3.12 10^6/uL (3.85-5.65); Red Cell Distribution Width 14.1 % (12.1-15.1); White Blood Count 5.03 10^3/uL (3.29-11.43)
[2023-08-05 15:29] LABS: Erythrocyte Sedimentation Rate 5 mm/hr (0-10)
[2023-08-05 15:33] LABS: Alanine Aminotransferase 59 U/L (0-41); Albumin Level 3.8 g/dL (3.5-5.2); Alkaline Phosphatase 85 U/L (40-130); Anion Gap 10.2 (5-19); Aspartate Amino Transferase 34 U/L (0-40); Blood Urea Nitrogen 27 mg/dL (8-23); Calcium 8.7 mg/dL (8.5-10.5); Carbon Dioxide 23 mmol/L (22-29); Chloride 108 mmol/L (98-107); Creatinine Clr Calc Pharmacy 67.1013; Globulin 4.6 g/dL (1.3-4.6); Glomerular Filtration Rate 55.9 mL/min (90-130); Glucose 105 mg/dL (65-115); Immunoglobulin IGA 73 mg/dL (70-400); Immunoglobulin IGG 3755 mg/dL (700-1600); Immunoglobulin IGM 46 mg/dL (40-230); Lactate Dehydrogenase 174 U/L (135-225); Osmolality Calculated 289 mOsm/kg (285-295); Potassium 4.2 mmol/L (3.5-5.1); Sodium 137 mmol/L (136-145); Total Bilirubin 0.3 mg/dL (0.15-1.2); Total Protein 8.4 g/dL (6.6-8.7)
[2023-08-05 15:48] LABS: Iron 98 ug/dL (59-158); Percent Saturation 62.4 % (20-50); Total Iron Binding Capacity 157 mcg/dl; Unsaturated Iron Binding 59 ug/dL (112-347)
[2023-08-05 16:00] LABS: Ferritin 1291 ng/mL (30-400)
[2023-08-07 07:49] LABS: PROTEIN, TOTAL 8.2 g/dL (6.1-8.1)
[2023-08-07 13:45] LABS: KAPPA LIGHT CHAIN, FREE, SERUM 35.7 mg/L (3.3-19.4); KAPPA/LAMBDA LIGHT CHAINS FREE 1.84 (0.26-1.65); LAMBDA LIGHT CHAIN, FREE, SERU 19.4 mg/L (5.7-26.3)
[2023-08-08 10:59] LABS: ABNORMAL PROTEIN BAND 1 2.3 g/dL (NONE DETECTED); ALBUMIN 4.1 g/dL (3.8-4.8); ALPHA 1 GLOBULIN 0.3 g/dL (0.2-0.3); ALPHA 2 GLOBULIN 0.5 g/dL (0.5-0.9); BETA 1 GLOBULIN 0.3 g/dL (0.4-0.6); BETA 2 GLOBULIN 0.3 g/dL (0.2-0.5); GAMMA GLOBULIN 2.7 g/dL (0.8-1.7)
== END 2023-08-11 23:59 | disposition home or self-care (01) ==
PROVIDERS: PCP Family Medicine; Visit Provider Internal Medicine Medical Oncology
DX: Z53.9 Procedure and treatment not carried out, unspecified reason; D47.2 Monoclonal gammopathy; D64.9 Anemia, unspecified; R06.02 Shortness of breath; R00.0 Tachycardia, unspecified
CPT/HCPCS: 36415; 80053; 81256; 82607; 82728; 82746; 82784; 83540; 83550; 83615; 83883; 84155; 84165; 85025; 85651; 86140; 86334; 99204; 99214

== ENCOUNTER 2023-08-12 09:58 | Oncology outpatient (recurring) (ONCR) | payer OTHER, SELFPAY ==
[2023-08-13 15:50] LABS: CREATININE, 24 HOUR URINE 2.02 g/24 h (0.50-2.15); PROTEIN, TOTAL, 24 HR UR 828 mg/24 h (<150); Protein/Creatinine Ratio 0.409 (<0.100); Protein/Creatinine Ratio 409 mg/g creat (<100)
[2023-08-20 14:58] LABS: ABNORMAL PROTEIN BAND 1 23 mg/24 h (NONE DETECTED); ALBUMIN 82 %; ALPHA-1-GLOBULINS 4 %; ALPHA-2-GLOBULINS 4 %; BETA GLOBULINS 5 %; GAMMA GLOBULINS 6 %
== END 2023-09-10 23:59 | disposition home or self-care (01) ==
LOC: ONCMED 09:58
PROVIDERS: PCP Family Medicine; Visit Provider Internal Medicine Medical Oncology
DX: D47.2 Monoclonal gammopathy
CPT/HCPCS: 82570; 84166; 86335

== ENCOUNTER → 2023-09-24 07:00 | Outpatient (BNVA) | payer OTHER, SELFPAY | PROVIDERS: PCP Family Medicine; Visit Provider Podiatrist Foot & Ankle Surgery | DX: E11.42 Type 2 diabetes mellitus with diabetic polyneuropathy (principal); I73.9 Peripheral vascular disease, unspecified | CPT/HCPCS: 99213 ==

== ENCOUNTER 2023-09-25 10:17 | Inpatient (IN) | payer OTHER, SELFPAY ==
[2023-09-25] VITALS (16 sets, daily range): BP systolic 155–186; BP diastolic 80–101; PULSE 74–93; RESP 15–24; TEMP 36.4; O2SAT 91–97; BMI 33.1
--- NOTE | 2023-09-25 10:29 | XRR_ITS ---
PROCEDURE INFORMATION: Exam: XR Chest Exam date and time: 09/25/2023 10:37 AM Age: 62 years old Clinical indication: Shortness of breath TECHNIQUE: Imaging protocol: Radiologic exam of the chest. Views: 1 view. COMPARISON: CR XR chest 1V portable [id number] 04/27/2023 2:03 PM FINDINGS: Lungs: Mild vascular and interstitial prominence. The findings are at least partially chronic but a superimposed infiltrate is probably present. Fluid overload/CHF is suspected. Pleural spaces: Unremarkable. No pleural effusion. No pneumothorax. Heart/Mediastinum: Unremarkable. No cardiomegaly. Bones/joints: Unremarkable. XR/XR chest 1V [id number] IMPRESSION: Chronic interstitial prominence with possible superimposed fluid overload or infiltrate.
--- NOTE | 2023-09-25 10:30 | ECG_ITS ---
[facility] Test Date: 2023-09-25 Pat Name: Wayne Aguilar Department: Room: Gender: Male Lighter: : 1960 Requested By: Maddy Khan Order Number: [id number] Bhumi MD: Hussain Flores M.D. Measurements Intervals [place] Rate: 82 P: 31 CO: 217 QRS: 5 QRSD: 103 T: 45 QT: 393 QTc: 460 Interpretive Statements SINUS RHYTHM WITH FIRST DEGREE AV BLOCK Compared to ECG 05/01/2023 01:40:55 First degree AV block now present Electronically Signed On 09-25-2023 16:24:33 CDT by Hussain Flores M.D. [email or web address] [facility] hospitalUrlistmer[facility] health [facility].[employer]/store/NU/[id number] f
--- NOTE | 2023-09-25 10:31 | ED_ITS ---
HPI - Chest Pain 2 General: Chief Complaint: Chest Pain Stated Complaint: chest pain Time Seen by Provider: 09/25/23 10:23 History of Present Illness: 62-year-old man with a history of A-fib, CKD, peripheral neuropathy, diabetes, hyperlipidemia, hypertension chronic low back pain and chronic pain syndrome on chronic opiate therapy who presents to the emergency room from the [place] clinic with pleuritic chest pain and cough. He says he was diagnosed with pneumonia yesterday and started on Augmentin. He took 1 dose. Then they called in [facility] today he says. He says it hurts to breathe deeply. He feels short of breath. He has been sick for several days now. He is a lifetime non-smoker. No known COPD. No known fevers. No nausea or vomiting. No diarrhea. He says he has had some swelling in his feet which is a little bit better today. He also feels like his stomach and chest have had swelling. No known history of heart failure Review of Systems 2 Narrative: Constitutional symptoms: Negative except as documented in HPI. Skin symptoms: Negative except as documented in HPI. Eye symptoms: Negative except as documented in HPI. ENMT symptoms: Negative except as documented in HPI. Respiratory symptoms: Negative except as documented in HPI. Cardiovascular symptoms: Negative except as documented in HPI. Gastrointestinal symptoms: Negative except as documented in HPI. Genitourinary symptoms: Negative except as documented in HPI. Musculoskeletal symptoms: Negative except as documented in HPI. Neurologic symptoms: Negative except as documented in HPI. Psychiatric symptoms: Negative except as documented in HPI. Endocrine symptoms: Negative except as documented in HPI. 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 Skin: Warm, dry. Head: Normocephalic, atraumatic. Neck: Supple, trachea midline. Eye: Extraocular movements are intact. Ears, nose, mouth and throat: mucosa moist. Cardiovascular: Regular, Normal peripheral perfusion. Respiratory: patient is tachypneic with frequent cough that appears painful. Some mild scattered wheeze., breath sounds are equal, Symmetrical chest wall expansion. Gastrointestinal: Soft, Nontender, Non distended, Normal bowel sounds. Musculoskeletal: Normal ROM, no deformity. Neurological: Alert and oriented, No focal neurological deficit observed. Psychiatric: Cooperative, appropriate mood & affect. Course 2 Vital Signs: Vital signs: Vital Signs Temperature 97.6 F 09/25/23 10:22 Pulse Rate 74 09/25/23 14:00 Respiratory Rate 15 09/25/23 14:00 Blood Pressure 170/87 09/25/23 14:00 Pulse Oximetry 92 09/25/23 14:00 Oxygen Delivery Me thod Room Air 09/25/23 14:00 MDM - Chest Pain Medical Decision Making Differential diagnosis for patient with chest pain includes but is not limited to and based on the above HPI, review of systems and physical exam: Pneumonia. unstable angina. angina. Acute coronary syndrome / AR. Pulmonary embolism. Costochondritis / musculoskeletal. Pleurisy. Pericarditis. Esophageal spasm. Pancreatis. Cholecystitis. Workup: Lab work, chest X-ray and EKG ordered to evaluate, rule in and rule out above pathologies. EKG: Time 1021 rate 82. Normal sinus rhythm, No ST-T changes, no ectopy, first- degree AV block, This was reviewed and interpreted by myself the ER physician at 1024 Repeat EKG: Time 1223 rate 77 normal sinus rhythm, No ST-T changes, no ectopy, normal IL & QRS intervals, This was reviewed and interpreted by myself the ER physician at 1226 Chest x-ray: Mild cardiomegaly, interstitial prominence, diffuse infiltrate versus early pulmonary edema. This was reviewed and interpreted by myself the ER physician. Lab Review: Laboratory results were reviewed and interpreted by myself the emergency room physician. White count was 7. Hemoglobin is 8.4. Recent hemoglobin values were 10, 9, 8. BUN and creatinine are 29 and 1.5. His creatinine is relatively stable previous measurements are 1.3 and 1.4. Bicarb is 22. His glucose is 229. His initial troponin is 36.. Repeat troponin is 26. I reviewed the patient's medical record. Prolonged stay in the emergency room: There was a 45-minute delay from original page of the hospitalist before I was able to speak with them. Reexamination: Patient still with mild increased work of breathing. O2 sats are in the low 90s. No altered mental status. No focal motor deficits. Assessment and plan: Upper respiratory infection Shortness of breath Possible heart failure Chronic kidney disease -I spoke with Dr. Barahona who is admitting the patinent -Concern for congestive heart failure. I do believe he has an upper respiratory infection with his cough and pleuritic chest pain. However I think he may be developing some heart failure. Heart looks big with possible pulmonary edema. Has had swelling in his legs. CT of the chest ordered per hospitalist. -Helene Renu-Lopez, amanda. He says he has had some proved with updraPanraven -Holding on Lasix for now. proBNP is elevated but his creatinine is up a little bit as well. -I discussed the patient with the hospitalist on-call who is admitting the patient. - Discussed findings and plan with patient. Answered any questions. - All laboratory values were reviewed and interpreted personally by myself, the ER physician - All imaging was reviewed and interpreted personally by myself, the ER physician. - Evaluation and treatment of this problem were appropriate in the emergency setting Lab Data 09/25/23 10:40 09/25/23 10:40 Radiology Impressions Chest X-Ray 09/25/23 10:29 IMPRESSION: Chronic interstitial prominence with possible superimposed fluid overload or infiltrate. Laboratory Results WBC 7.07 10^3/uL (3.29-11.43) 09/25/23 10:40 RBC 2.63 10^6/uL (3.85-5.65) L 09/25/23 10:40 Hgb 8.40 g/dL (11.27-16.99) L 09/25/23 10:40 Hct 25.6 % (37-53) L 09/25/23 10:40 MCV 97.3 fl (82-101) 09/25/23 10:40 MCH 31.9 pg (27-33) 09/25/23 10:40 MCHC 32.8 g/dL (30-55) 09/25/23 10:40 RDW 13.2 % (12.1-15.1) 09/25/23 10:40 Plt Count 255 10^3/cmm (157-399) 09/25/23 10:40 MPV 10.1 fL (7.4-10.4) 09/25/23 10:40 Neut % (Auto) 80.0 % 09/25/23 10:40 Lymph % (Auto) 10.9 % 09/25/23 10:40 [place] % (Auto) 6.4 % 09/25/23 10:40 Eos % (Auto) 1.7 % 09/25/23 10:40 Baso % (Auto) 0.3 % 09/25/23 10:40 Neut # (Auto) 5.66 10^3/uL (1.8-7.7) 09/25/23 10:40 Lymph # (Auto) 0.8 10^3/uL (0.8-4.8) 09/25/23 10:40 [place] # (Auto) 0.5 10^3/uL (0.2-0.9) 09/25/23 10:40 Eos # (Auto) 0.1 10^3/uL (0.0-0.8) 09/25/23 10:40 Baso # (Auto) 0.0 10^3/uL (0.0-0.1) 09/25/23 10:40 Nucleated RBC % (auto) 0 % 09/25/23 10:40 Nucleated RBCs # 0.0 /100WBC 09/25/23 10:40 Sodium 135 mmol/L (136-145) L 09/25/23 10:40 Potassium 4.5 mmol/L (3.5-5.1) 09/25/23 10:40 Chloride 105 mmol/L (98-107) 09/25/23 10:40 Carbon Dioxide 22 mmol/L (22-29) 09/25/23 10:40 Anion Gap 12.5 (5-19) 09/25/23 10:40 BUN 29 mg/dL (8-23) H 09/25/23 10:40 Creatinine 1.5 mg/dL (0.7-1.2) H 09/25/23 10:40 GFR Calculation 47.4 mL/min (90-130) L 09/25/23 10:40 Glucose 229 mg/dL (65-115) H 09/25/23 10:40 Calculated Osmolality 293 mOsm/kg (285-295) 09/25/23 10:40 Lactic Acid 1.2 mmol/L (0.5-2.2) 09/25/23 10:40 Calcium 8.6 mg/dL (8.5-10.5) 09/25/23 10:40 Total Bilirubin 0.5 mg/dL (0.15-1.2) 09/25/23 10:40 AST 21 U/L (0-40) 09/25/23 10:40 ALT 30 U/L (0-41) 09/25/23 10:40 Alkaline Phosphatase 119 U/L (40-130) 09/25/23 10:40 Troponin T Baseline 36 ng/L (0-15) H 09/25/23 10:40 Troponin T 120 Minute 25.69 ng/L (0-15) H 09/25/23 12:41 Delta Troponin T -10.31 ABS# (0-10) L 09/25/23 12:41 C-Reactive Protein 5.9 mg/L (0.0-4.9) H 09/25/23 10:40 NT-Pro-B Natriuret Pep 1889 pg/mL (0-125) H 09/25/23 10:40 Total Protein 8.7 g/dL (6.6-8.7) 09/25/23 10:40 Albumin 3.8 g/dL (3.5-5.2) 09/25/23 10:40 Globulin 4.9 g/dL (1.3-4.6) H 09/25/23 10:40 Adenovirus (PCR) Not detected (NOT DETECT) 09/25/23 10:50 C. pneumoniae DNA (PCR) Not detected (NOT DETECT) 09/25/23 10:50 Coronavirus 229E (PCR) Not detected (NOT DETECT) 09/25/23 10:50 Human Metapneumovir PCR Not detected (NOT DETECT) 09/25/23 10:50 Influenza A (H1) PCR Not detected (NOT DETECT) 09/25/23 10:50 Influ A (H1/09) PCR Not detected (NOT DETECT) 09/25/23 10:50 Influenza A (H3) PCR Not detected (NOT DETECT) 09/25/23 10:50 Influenza Type A (PCR) Not detected (NOT DETECT) 09/25/23 10:50 Influenza Type B (PCR) Not detected (NOT DETECT) 09/25/23 10:50 M. pneumoniae (PCR) Not detected (NOT DETECT) 09/25/23 10:50 Parainfluenza 1 (PCR) Not detected (NOT DETECT) 09/25/23 10:50 Parainfluenza 2 (PCR) Not detected (NOT DETECT) 09/25/23 10:50 Parainfluenza 3 (PCR) Not detected (NOT DETECT) 09/25/23 10:50 Parainfluenza 4 (PCR) Not detected (NOT DETECT) 09/25/23 10:50 RSV Type A (PCR) Not detected (NOT DETECT) 09/25/23 10:50 RSV Type B (PCR) Not detected (NOT DETECT) 09/25/23 10:50 Entero/Rhino (PCR) Not detected (NOT DETECT) 09/25/23 10:50 SARS-CoV-2 (PCR) Not detected (NOT DETECT) 09/25/23 10:50 All radiology interpretation(s) finalized by discharge Discharge Plan Discharge Patient Disposition: Admitted As Inpatient Clinical Impression: Upper respiratory infection, Diabetes mellitus, Chest pain, Edema, Orthopnea, Chronic kidney disease Condition: Stable Coding Level of Care Code ED Civil Structural Designer for Nirmal Uribe
[2023-09-25] MEDS: ipratropium-albuterol 3 mL Neb INHALATION ×2 (10:39→15:15)
[2023-09-25] MEDS: albuterol 2.5 mg/3 mL Neb INHALATION (10:39)
[2023-09-25] MEDS: morphine 4 mg/mL SDV 1 mL IVP (10:59)
[2023-09-25] MEDS: ondansetron 2 mg/ML SDV 2 mL 4 MG IVP (10:59)
[2023-09-25 11:10] LABS: Basophils % 0.3 %; Eosinophils # 0.1 10^3/uL (0.0-0.8); Eosinophils % 1.7 %; Hematocrit 25.6 % (37-53); Lymphocytes # 0.8 10^3/uL (0.8-4.8); Lymphocytes % 10.9 %; Mean Corpuscular HGB Conc 32.8 g/dL (30-55); Mean Corpuscular Hemoglobin 31.9 pg (27-33); Mean Corpuscular Volume 97.3 fl (82-101); Mean Platelet Volume 10.1 fL (7.4-10.4); Monocytes # 0.5 10^3/uL (0.2-0.9); Monocytes % 6.4 %; Neutrophils # 5.66 10^3/uL (1.8-7.7); Nucleated Red Blood Cells % 0 %; Platelet Count 255 10^3/cmm (157-399); Red Blood Count 2.63 10^6/uL (3.85-5.65); Red Cell Distribution Width 13.2 % (12.1-15.1); White Blood Count 7.07 10^3/uL (3.29-11.43)
[2023-09-25 11:35] LABS: Alanine Aminotransferase 30 U/L (0-41); Albumin Level 3.8 g/dL (3.5-5.2); Alkaline Phosphatase 119 U/L (40-130); Anion Gap 12.5 (5-19); Aspartate Amino Transferase 21 U/L (0-40); Blood Urea Nitrogen 29 mg/dL (8-23); C Reactive Protein 5.9 mg/L (0.0-4.9); Calcium 8.6 mg/dL (8.5-10.5); Carbon Dioxide 22 mmol/L (22-29); Chloride 105 mmol/L (98-107); Creatinine Clr Calc Pharmacy 59.4649; Globulin 4.9 g/dL (1.3-4.6); Glomerular Filtration Rate 47.4 mL/min (90-130); Glucose 229 mg/dL (65-115); Osmolality Calculated 293 mOsm/kg (285-295); Potassium 4.5 mmol/L (3.5-5.1); Sodium 135 mmol/L (136-145); Total Bilirubin 0.5 mg/dL (0.15-1.2); Total Protein 8.7 g/dL (6.6-8.7)
[2023-09-25 11:36] LABS: Lactic Sepsis W/Reflex 1.2 mmol/L (0.5-2.2)
[2023-09-25 11:37] LABS: Troponin(5th) Baseline 36 ng/L (0-15)
--- NOTE | 2023-09-25 12:23 | ECG_ITS ---
[facility] Test Date: 2023-09-25 Pat Name: Wayne Aguilar Department: Room: Gender: Male Photo Checker: : 1960 Requested By: Maddy Khan Order Number: [id number] Bhumi MD: Hussain Flores M.D. Measurements Intervals [place] Rate: 77 P: 28 NM: 198 QRS: 6 QRSD: 104 T: 46 QT: 422 QTc: 480 Interpretive Statements SINUS RHYTHM Compared to ECG 09/25/2023 10:21:23 First degree AV block no longer present Electronically Signed On 09-25-2023 16:27:00 CDT by Hussain Flores M.D. [email or web address] Groupmemorial health system.[employer]/store/OM/[id number]
[2023-09-25 12:35] LABS: Adenovirus Not Detected (NOT DETECT); Chlamydia Pneumoniae Not Detected (NOT DETECT); Coronavirus 229E,HKU1,NL63,OC4 Not Detected (NOT DETECT); Human Metapneumovirus Not Detected (NOT DETECT); Human Rhinovirus/Enterovirus Not Detected (NOT DETECT); Influenza A Not Detected (NOT DETECT); Influenza A H1 Not Detected (NOT DETECT); Influenza A H1-2009 Not Detected (NOT DETECT); Influenza A H3 Not Detected (NOT DETECT); Influenza B Not Detected (NOT DETECT); Mycoplasma Pneumoniae Not Detected (NOT DETECT); Parainfluenza Virus Type 1 Not Detected (NOT DETECT); Parainfluenza Virus Type 2 Not Detected (NOT DETECT); Parainfluenza Virus Type 3 Not Detected (NOT DETECT); Parainfluenza Virus Type 4 Not Detected (NOT DETECT); Respiratory Syncytial Virus A Not Detected (NOT DETECT); Respiratory Syncytial Virus B Not Detected (NOT DETECT); SARS-COV-2 Not Detected (NOT DETECT)
[2023-09-25 13:02] LABS: Troponin 5 2HR 25.69 ng/L (0-15)
[2023-09-25] MEDS: methylPREDNISolone sod succ 125 mg/2 mL INJ IVP (13:06)
[2023-09-25 13:07] LABS: Troponin 5 2HR Delta -10.31 ABS# (0-10)
[2023-09-25] MEDS: levofloxacin-dextrose 5 % 750 MG/150 ML PREMIX 100 MG IV (13:07)
[2023-09-25 13:58] LABS: NT Pro B Type Natriuretic Pept 1889 pg/mL (0-125)
--- NOTE | 2023-09-25 14:27 | CTR_ITS ---
PROCEDURE INFORMATION: Exam: CT Chest Without Contrast; Diagnostic Exam date and time: 09/25/2023 2:35 PM Age: 62 years old Clinical indication: Shortness of breath; Patient HX: Dx with lymphoma and melanoma 2 months ago; Additional info: SOB, possible chf TECHNIQUE: Imaging protocol: Diagnostic computed tomography of the chest without contrast. Radiation optimization: All CT scans at this facility use at least one of these dose optimization techniques: automated exposure control; mA and/or kV adjustment per patient size (includes targeted exams where dose is matched to clinical indication); or iterative reconstruction. COMPARISON: CT angio chest w abd pel w con 04/25/2023 5:52 PM RADIATION DOSE METRICS: Total DLP (mGy-cm): 769.65 FINDINGS: Lungs: Mild dependent atelectasis. Diffuse mild interstitial prominence. Pleural spaces: Moderate bilateral pleural effusions. Heart: Unremarkable. No cardiomegaly. No pericardial effusion. Coronary arteries: Minimal coronary artery calcifications. Lymph nodes: Visible central lymph nodes are not pathologically enlarged. Vasculature: Unremarkable. No aortic aneurysm. Bones/joints: Unremarkable. No acute fracture. Soft tissues: Unremarkable. CT/CT chest wo con [id number] IMPRESSION: Nonspecific findings which could represent congestive heart failure. The most prominent feature is moderate bilateral effusions.
--- NOTE | 2023-09-25 14:39 | USCV_ITS ---
Wayne Aguilar Age: 62 Gender: M : 1960 Exam Date: 09/25/2023 16:56 Ordering Phys: Modesto Barahona MD Technologist: CT Exam Location: [facility] [place] Indication: chf BP: 181 / 93 HR: 80 Rhythm: Sinus Technical Quality: Adequate MEASUREMENTS (Male / Female) Normal Values 2D ECHO LVOT Diameter 2.3 cm LV Ejection Fraction MOD 2C 64.2 % LV Ejection Fraction 2C AL 65.1 % LA Diameter 4.8 cm RA Systolic Volume 4C AL 73.5 ml RA Systolic Volume 4C MOD 68.0 ml LA Sys Volume AL 55.4 cm cubed LA Sys Volume Index AL 24.5 cm cubed/m squared Aorta at Sinotubular Diameter 2.7 cm IVC Diameter 1.8 cm M-MODE LA Ao Ratio MM 1.6 AV Cusp Separation MM 2.2 cm DOPPLER AV Peak Velocity 160.0 cm/s LVOT Peak Velocity 96.0 cm/s AV Area Cont Eq vti 2.8 cm squared AV Area Cont Eq pk 2.5 cm squared MV Peak Velocity 148.0 cm/s MV Area PHT 4.5 cm squared Mitral E to A Ratio 1.4 TR Peak Velocity 88.0 cm/s TR Peak Gradient 3.1 mmHg Right Atrial Pressure 3.0 mmHg Pulmonary Artery Systolic Pressu 6.1 mmHg PV Peak Velocity 107.5 cm/s FINDINGS Left Ventricle Normal left ventricular size and systolic function, EF 64% . Grade III/IV diastolic dysfunction (restrictive filling pattern), severely elevated filling pressures. Mild left ventricular hypertrophy. Right Ventricle The right ventricle is normal in size and function. Right Atrium The right atrium is normal in size. Left Atrium Mildly increased left atrial size. Mitral Valve Thickened mitral valve. Mild mitral annular calcification. Moderate mitral valve regurgitation. Aortic Valve Thickened aortic valve. Tricuspid Valve No gross abnormalities noted Pulmonic Valve No gross abnormalities noted Pericardium Normal pericardium without effusion. Aorta Normal ascending aorta dimension. IVC The inferior vena cava appears normal. CONCLUSIONS Normal left ventricular size and systolic function, EF 64% . Grade III/IV diastolic dysfunction (restrictive filling pattern), severely elevated filling pressures. Mild left ventricular hypertrophy. Mildly increased left atrial size. Thickened mitral valve. Mild mitral annular calcification. Moderate mitral valve regurgitation. Thickened aortic valve. There is no pericardial effusion. There are no intracardiac masses. Compared to the study from 07/29/2023 the mitral regurgitation appears to be moderate at this time Dr Abdirizak Brewer MD [facility] (Electronically Signed) Final Date: 25 Sep 2023 21:41 S
[2023-09-25] MEDS: FUROsemide 10 mg/mL SDV 10mL 60 MG IVP (14:55)
[2023-09-25 15:24] LABS: Lactic Sepsis W/Reflex 1.3 mmol/L (0.5-2.2)
[2023-09-25 15:26] LABS: Troponin 5 6HR 23.65 ng/L (0-15); Troponin 5 6HR Delta -12.35 ng/L (0-12)
[2023-09-25 15:32] LABS: Amphetamines Screen Urine Negative (Negative); Barbiturates Screen Urine Negative (Negative); Benzodiazepines Screen Urine Negative (Negative); Cocaine Screen Urine Negative (Negative); Opiate Screen Urine Positive (Negative); PCP Screen Urine Negative (Negative); THC Screen Urine Negative (Negative)
[2023-09-25 15:38] LABS: Procalcitonin 0.06 ng/mL (0-0.5)
[2023-09-25 15:52] LABS: Potassium, Radom Urine 25 mmol/L; Urine Creatinine 61 mg/dL (39-259); Urine Random Chloride 76 mmol/L; Urine Random Sodium 79 mmol/L
[2023-09-25 15:54] LABS: Add Urine Microscopic? YES; Bilirubin Urine Neg (Negative); Blood Urine 2+ (Negative); Glucose Urine UA 1+ (Normal); Ketones Urine Negative (Negative); Leukocyte Esterase Urine Negative (Negative); Nitrate Urine Negative (Negative); Protein Urine 2+ (Negative); Specific Gravity, Urine 1.015 (1.005-1.030); Urine Appearance Clear (CLEAR); Urine Color Yellow (Yellow); Urobilinogen Urine Norm (Negative); pH Urine 5 (5-7)
[2023-09-25 15:58] LABS: Bacteria Urine TRACE /hpf; RBC Urine 0-4 /hpf (0-2)
[2023-09-25 15:59] LABS: Add Urine Culture? No
--- NOTE | 2023-09-25 16:38 | ECG_ITS ---
[facility] Test Date: 2023-09-25 Pat Name: Wayne Aguilar Department: Room: 102 Gender: Male Cad Administrator: : 1960 Requested By: Maddy Khan Order Number: [id number] Bhumi MD: Hussain Flores M.D. Measurements Intervals [place] Rate: 84 P: 35 TX: 209 QRS: 4 QRSD: 106 T: 46 QT: 411 QTc: 487 Interpretive Statements SINUS RHYTHM Compared to ECG 09/25/2023 12:23:25 No significant changes Electronically Signed On 09-25-2023 22:49:40 CDT by Hussain Flores M.D. [email or web address] Partnersadams county regional medical centertritrue/store/OM/[id number]
--- NOTE | 2023-09-25 17:10 | P.HP_ITS ---
Providers/Chief Complaint 2 Admitting Physician: Modesto Barahona MD Primary Care Provider: Pam Diaz MD Chief Complaint: chest pain History of Present Illness Wayne Aguilar is a 62 year old male with past medical history of CKD, on temporary dialysis in past for a short while, type 2 diabetes mellitus, possibility of IgG gamma globin apathy under workup with Dr. Glynn, hypertension, hyperlipidemia, present to the ER with concerns for tightness on the chest, difficulty in breathing, heaviness in chest which is bandlike along with heaviness in his abdomen which is getting worse over last 1 week to 10 days. Symptoms are exacerbated on minimal ambulation on laying down flat. Denies any chest pain. Patient gives history of recent travel to [facility] recently when he was feeling fine. Denies any fever, nausea, vomiting, headache, dizziness, diarrhea. It seems patient did present with similar complaints to cardiology office earlier in June when he underwent echocardiogram and was found to have diastolic dysfunction with a normal EF. In the ER there was concerns for congestive heart failure hence hospital service was requested for further examination. He was found to have an elevated blood pressure of more than 180 systolic saturating well on room air. Review of Systems 2 General: Reports: 10 or more systems reviewed and unremarkable except in HPI and below Const: Denies: fever(s), chills, body aches, change in appetite, change in weight, malaise, night sweats, diaphoresis, change in sleep pattern, daytime sleepiness or snoring Eyes: Denies: change in vision, blurry vision, photophobia, eye discomfort or eye discharge ENMT: Denies: throat pain, enlarged tonsils, hoarseness, mouth pain, oral sores, dry mouth, tinnitus, nasal congestion or post nasal drip Card: Denies: chest pain, palpitations, irregular heart rhythm, edema, swelling of feet/ankles, lightheadedness, syncope, pre-syncope, dyspnea on exertion, orthopnea, leg pain with exertion or acrocyanosis Resp: Denies: dyspnea, productive cough, non-productive cough, wheezing, stridor, pain on inspiration, change in phlegm color, hemoptysis or chest congestion GI: Denies: abdominal pain, nausea, vomiting, hematemesis, coffee ground emesis, dysphagia, heartburn, diarrhea, constipation, bloating, GI cramping, change in bowel habits, pain on defecation, hematochezia or melena : Denies: flank pain, difficulty urinating, dysuria, urinary frequency, urinary urgency, urinary hesitancy, urinary dribbling, difficulty starting urination, change in urine stream, nocturia or hematuria Musc: Denies: neck pain, back pain, extremity pain, joint pain, joint swelling, joint redness, joint stiffness or limited range of motion Neuro: Denies: headache(s), numbness in extremities, weakness in extremities, sensory changes, lack of coordination, difficulty walking, frequent falls, dizziness, vertigo, confusion, Slurred speech present, difficulty communicating thoughts or seizure-like activity Psych: Denies: anxiety, depression, mood swings, panic attacks, hopelessness or irritability Endo: Denies: polyuria, polydipsia, tired all the time, cold intolerance, excessive sweating, flushing or heat intolerance Tono/Lymph: Denies: easy bruising or easy bleeding All/Imm: Denies: tongue swelling, facial swelling or acute wheezing Medications/Allergies Home Medications Medication Instructions Recorded Confirmed Last Taken Type cholecalciferol (vitamin D3) 25 50 mcg PO QAM 12/02/19 09/25/23 09/25/23 History mcg (1,000 unit) tablet polyethylene glycol 3350 17 gram 17 g PO DAILY 12/02/19 09/25/23 12/02/19 History oral powder packet (Miralax) Diabetic Shoes with 3 sets of #1 ea 05/10/20 09/25/23 Unknown Rx inserts aspirin 81 mg tablet,delayed 81 mg PO QAM 30 days #30 tabs 03/03/21 09/25/23 09/25/23 Rx release ([place] Low Dose Aspirin) blood pressure monitor (Blood #1 ea 03/03/21 09/25/23 Unknown Rx Pressure Kit) vitamin B complex-vitamin C-folic 1 tab PO DAILY 11/20/21 09/25/23 09/25/23 History acid 1 mg tablet carbon fiber [place] bilaterally- #1 ea 02/26/22 09/25/23 Unknown Rx AFO Custom Molded Accomodative #1 ea 05/11/22 09/25/23 Unknown Rx Orthotics and Diabetic Shoes AFO to right #1 ea 07/18/22 09/25/23 Unknown Rx carboxymethylcellulose sodium 0.5 2 drp ophthalmic (eye) TID PRN 12/19/22 09/25/23 03/20/23 History % eye drops redness clopidogrel 75 mg tablet 75 mg PO QAM 12/19/22 09/25/23 09/25/23 History docusate sodium 100 mg capsule 200 mg PO BID 12/19/22 09/25/23 09/25/23 History (Colace) glucose 4 gram chewable tablet 4 g PO Q15M PRN for low blood sugar 12/19/22 09/25/23 Unknown History insulin aspart U-100 100 unit/mL 4 unit SUBCUT TID 12/19/22 09/25/23 09/25/23 History (3 mL) subcutaneous pen lidocaine 5 % topical patch 1 patch topical DAILY PRN Pain 12/19/22 09/25/23 Unknown History omega-3 fatty acids 1,000 mg 2,000 mg PO BID 12/19/22 09/25/23 09/25/23 History capsule semaglutide 1 mg/dose (2 mg/1.5 1 mg SUBCUT Q7D 12/19/22 09/25/23 03/17/23 History mL) subcutaneous pen injector tadalafil 20 mg tablet 20 mg PO DAILY PRN Erectile 12/19/22 09/25/23 Unknown History Dysfunction Bedside commode #1 ea 03/22/23 09/25/23 Unknown Rx Shower chair #1 ea 03/22/23 09/25/23 Unknown Rx Wheelchair with elevated foot rest #1 ea 03/22/23 09/25/23 Unknown Rx Walker #1 ea 04/17/23 09/25/23 Unknown Rx pantoprazole 40 mg tablet,delayed 40 mg PO BID 04/25/23 09/25/23 09/25/23 History release tramadol 50 mg tablet 50 mg PO .Q4-6H PRN pain 04/25/23 09/25/23 Unknown History Compression stockings #3 ea 05/21/23 09/25/23 Unknown Rx extra depth shoe with custom #1 ea 05/21/23 09/25/23 Unknown Rx molded accommodative insoles triamcinolone acetonide 0.1 % 1 applic topical BID #30 grams 06/20/23 09/25/23 Unknown Rx topical cream amlodipine 10 mg tablet 10 mg PO QAM 09/25/23 09/25/23 09/25/23 History atorvastatin 80 mg tablet 80 mg PO BEDTIME 09/25/23 09/25/23 Unknown History cetirizine 10 mg tablet 10 mg PO DAILY 09/25/23 09/25/23 Unknown History diclofenac sodium 1 % topical gel 2 g topical QID 09/25/23 09/25/23 Unknown History duloxetine 30 mg capsule,delayed 30 mg PO BID 09/25/23 09/25/23 09/25/23 History release fluticasone propionate 50 2 spray intranasal DAILY 09/25/23 09/25/23 Unknown History mcg/actuation nasal spray,suspension hydroxyzine HCl 50 mg tablet 50 mg PO BEDTIME 09/25/23 09/25/23 09/24/23 History lactulose 10 gram/15 mL oral 15 ml PO DAILY PRN Constipation 09/25/23 09/25/23 Unknown History solution lisinopril 20 mg tablet 20 mg PO DAILY 09/25/23 09/25/23 09/25/23 History metoprolol succinate 200 mg 100 mg PO DAILY 09/25/23 09/25/23 09/25/23 History tablet,extended release 24 hr nystatin 100,000 unit/mL oral 5 ml PO TID 09/25/23 09/25/23 09/25/23 History suspension pregabalin 150 mg capsule 150 mg PO DAILY 09/25/23 09/25/23 09/25/23 History tizanidine 4 mg tablet 4 mg PO BID PRN Spasms 09/25/23 09/25/23 Unknown History Allergies Allergy/AdvReac Type Severity Reaction Status Date / Time No Known Allergies Allergy Verified 09/23/23 16:03 PFSH Acute 2 PFSH: Medical History (Updated 09/25/23 @ 17:14 by Modesto Barahona MD) Rhabdomyolysis Atrial fibrillation with rapid ventricular response Cellulitis and abscess of hand History of atrial fibrillation Chronic kidney disease Diabetic peripheral neuropathy associated with type 2 diabetes 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 of other part of right foot limited to breakdown of skin Stroke Lumbar paraspinal muscle spasm Glenohumeral arthritis Lumbar disc disease with radiculopathy retirement (current) use of opiate analgesic Pain management contract signed Degenerative lumbar disc Hyperlipidemia Hypertension Diabetes mellitus Surgical History 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 S/P dialysis catheter insertion Hx of appendectomy Hx of foot surgery Hx of cholecystectomy Family History Son Acute leukemia Denies family history of Anesthesia complication Social History Smoking and tobacco/nicotine status: never used tobacco/nicotine Alcohol intake: never Substance/Drug Use: never Caregiver/support person: Yes Lives independently: Yes Vitals/I&O/Wt Last Vital Signs Temp 97.6 F 09/25/23 10:22 Pulse 82 09/25/23 16:57 Resp 16 09/25/23 15:54 BP 181/93 09/25/23 16:57 Pulse Ox 92 09/25/23 16:58 O2 Del Method Room Air 09/25/23 16:58 09/25/23 09/25/23 09/25/23 06:59 14:59 22:59 Intake Total 150 / 150 Output Total 1300 / 1300 Balance 150 / 150 -1300 / -1150 Weight last 48 hrs Weight 101.831 kg Weight 99.79 kg Physical Exam 2 Narrative: General: No acute distress, AO x3, laying in bed with head of the bed elevated at 45 degrees on room air HEENT: PERRLA, pupils bilaterally equal and reactive Chest: Normal vesicular breath sounds, bilateral fine crackles up to mid chest CVS: S1-S2 regular, soft pansystolic murmur at apex, no tachycardia, no gallops, no rubs Abdomen: Soft, nontender, no organomegaly, bowel sounds present Neuro: No focal deficits, no facial deformity, AO x3, power 5/5 in all limbs Urinary Catheter Management: Rodriguez: Cath Placed During This Visit: yes Urinary Catheter Date of Insertion: 09/25/23 Urinary Catheter Time of Insertion: 15:15 Data 09/25/23 10:40 09/25/23 10:40 Micro: Microbiology 09/25/23 15:15 Bacterial Antigens - Final Urine Kidney 09/25/23 11:22 Blood Culture - Preliminary Blood SPECIMEN COLLECTED 09/25/23 10:40 Blood Culture - Preliminary Blood SPECIMEN COLLECTED A&P Assessment and plan (1) Congestive heart failure: Symptoms of orthopnea and exertional shortness of breath. Concerns for congestive heart failure. Recent echocardiogram done within the last 3 months showed diastolic dysfunction with normal EF and no regional wall motion abnormality without valvular disorder. proBNP elevated. Patient not requiring oxygen. Check CT chest without contrast. Repeat echocardiogram. Cannot rule out diastolic heart failure in setting of uncontrolled hypertension. Troponin for now with negative delta. Patient will most likely benefit with repeat stress test once euvolemic. Fluid restriction to 1500 cc. IV Lasix 60 mg one-time. Rodriguez catheter. Strict input output charting, daily weights. (2) Acute on chronic renal failure: Baseline creatinine around 1.3-1.4. Currently 1.5. History of renal failure requiring dialysis in the past. Rodriguez catheterization. Concerns for urinary bladder outlet obstruction. Check urine lites, urine eosinophils, urine creatinine. Monitor renal functions daily. Medical reconciliation done for nephrotoxic drugs. Hold off on home dose of lisinopril for now. (3) History of atrial fibrillation: Continue with home dose of metoprolol. property assessment monitor. (4) Hypertension: Goal blood pressure less than 140/90 mmHg. Blood pressure is elevated on admission. Continue with home dose of amlodipine 10 mg daily, metoprolol 100 mg daily. If needed will add hydralazine. Uptitrate as for goal blood pressures. IV hydralazine 10 mg IV 4 hours as needed for systolic blood pressure more than 160 mmHg Qualifiers: Hypertension type: essential hypertension Qualified Code(s): I10 - Essential (primary) hypertension (5) Diabetes mellitus: Last A1c of 6.2 in last 5 months. Insulin sliding scale. Qualifiers: Diabetes mellitus type: type 2 Diabetes mellitus long term care pharmacist insulin use: with long term care pharmacist use Diabetes mellitus complication status: with other specified complication Qualified Code(s): E11.69 - Type 2 diabetes mellitus with other specified complication; Z79.4 - retirement (current) use of insulin (6) Hyponatremia: Present on admission most likely in setting of hypervolemia hyponatremia. Monitor daily. (7) Anemia: Baseline hemoglobin around 8. 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 Monitor hemoglobin. Target hemoglobin more than 8. Check stool for occult blood. Continue with home dose of Protonix twice daily. (8) Monoclonal gammopathy: Plan Chest pain: Could be in setting of congestive heart failure. Troponin cycled negative. Recent stress test in July 2022 did show mild justin-infarct ischemia thought to be pulmonary or respiratory artifact. Continue with home dose of dual antiplatelet, statin and metoprolol. Appreciate recent A1c lipid panel. Continue with chronic oral medications including duloxetine, pregabalin. Full code Cardiac carb consistent diet Protonix for PUD prophylaxis Heparin for DVT prophylaxis. Admit to CSU. Attestations 2 Medical Necessity Statement*: Admission for more than 2 midnights for management of symptoms consistent with congestive heart failure, uncontrolled hypertension in a patient with CKD with hyponatremia and mild TULIO for now. Diagnoses Congestive heart failure I50.9 Acute on chronic renal failure N17.9; N18.9 History of atrial fibrillation Z86.79 Essential hypertension I10 Hypertension type: essential hypertension Type 2 diabetes mellitus with other specified complication, with long-term current use of insulin E11.69; Z79.4 Diabetes mellitus type: type 2 Diabetes mellitus senior living insulin use: with senior living use Diabetes mellitus complication status: with other specified complication Hyponatremia E87.1 Anemia D64.9 Monoclonal gammopathy D47.2
[2023-09-25 17:26] LABS: Eosinophil Urine No Eosinophils Seen
[2023-09-25 17:32] LABS: Glucose Point of Care 311 mg/dL (70-110)
[2023-09-25] MEDS: pantoprazole DR 40 mg Tablet PO (17:35)
[2023-09-25] MEDS: duloxetine 30 mg Capsule PO (17:35)
[2023-09-25] MEDS: insulin lispro 100 unit/1 mL SUBCUT ×2 (17:36→21:00)
[2023-09-25] MEDS: heparin 5,000 unit/mL INJ 1 mL 5000 UNIT SUBCUT (17:36)
[2023-09-25 20:28] LABS: Glucose Point of Care 489 mg/dL (70-110)
[2023-09-25] MEDS: atorvastatin 40 mg Tablet 80 MG PO (21:00)
[2023-09-25] MEDS: hyDRALAzine 20 mg/mL INJ 1 mL 10 MG IVP (22:10)
[2023-09-26] VITALS (11 sets, daily range): BP systolic 146–171; BP diastolic 75–96; PULSE 76–81; RESP 14–19; TEMP 36.6–36.8; O2SAT 95–98; BMI 32.5
[2023-09-26] MEDS: hyDRALAzine 20 mg/mL INJ 1 mL 10 MG IVP ×2 (03:47→21:26)
[2023-09-26] MEDS: heparin 5,000 unit/mL INJ 1 mL 5000 UNIT SUBCUT ×2 (03:47→18:01)
[2023-09-26] MEDS: morphine 4 mg/mL SDV 1 mL 2 MG IVP (03:47)
[2023-09-26] MEDS: ipratropium-albuterol 3 mL Neb INHALATION (05:10)
[2023-09-26] MEDS: aspirin 81 mg EC Tablet PO (05:48)
[2023-09-26] MEDS: clopidogrel 75 mg Tablet PO (05:48)
[2023-09-26] MEDS: amlodipine 10 mg Tablet PO (05:48)
[2023-09-26 05:58] LABS: Basophils % 0.1 %; Eosinophils % 0.1 %; Hematocrit 23.8 % (37-53); Lymphocytes # 0.7 10^3/uL (0.8-4.8); Lymphocytes % 9.5 %; Mean Corpuscular HGB Conc 33.2 g/dL (30-55); Mean Corpuscular Hemoglobin 32.2 pg (27-33); Mean Corpuscular Volume 97.1 fl (82-101); Mean Platelet Volume 9.6 fL (7.4-10.4); Monocytes # 0.5 10^3/uL (0.2-0.9); Monocytes % 6.9 %; Neutrophils # 6.36 10^3/uL (1.8-7.7); Neutrophils % 82.7 %; Nucleated Red Blood Cells % 0 %; Platelet Count 249 10^3/cmm (157-399); Red Blood Count 2.45 10^6/uL (3.85-5.65); Red Cell Distribution Width 13.1 % (12.1-15.1); White Blood Count 7.69 10^3/uL (3.29-11.43)
[2023-09-26 06:23] LABS: Alanine Aminotransferase 23 U/L (0-41); Albumin Level 3.5 g/dL (3.5-5.2); Alkaline Phosphatase 103 U/L (40-130); Anion Gap 10.3 (5-19); Aspartate Amino Transferase 15 U/L (0-40); Blood Urea Nitrogen 29 mg/dL (8-23); Calcium 8.1 mg/dL (8.5-10.5); Carbon Dioxide 25 mmol/L (22-29); Chloride 104 mmol/L (98-107); Globulin 4.8 g/dL (1.3-4.6); Glomerular Filtration Rate 47.4 mL/min (90-130); Glucose 221 mg/dL (65-115); Osmolality Calculated 293 mOsm/kg (285-295); Phosphorus 3.4 mg/dL (2.5-4.5); Potassium 4.3 mmol/L (3.5-5.1); Sodium 135 mmol/L (136-145); Total Bilirubin 0.3 mg/dL (0.15-1.2); Total Protein 8.3 g/dL (6.6-8.7)
[2023-09-26 06:25] LABS: Magnesium 1.8 mg/dL (1.7-2.3)
[2023-09-26 06:27] LABS: Creatinine Clr Calc Pharmacy 59.5224; Procalcitonin 0.07 ng/mL (0-0.5)
[2023-09-26 06:48] LABS: Glucose Point of Care 234 mg/dL (70-110)
[2023-09-26] MEDS: insulin lispro 100 unit/1 mL SUBCUT ×3 (07:57→21:27)
[2023-09-26] MEDS: pantoprazole DR 40 mg Tablet PO ×2 (07:58→18:01)
[2023-09-26] MEDS: duloxetine 30 mg Capsule PO ×2 (07:58→18:01)
[2023-09-26] MEDS: pregabalin 150 mg Capsule PO (07:58)
[2023-09-26] MEDS: metoprolol succinate ER (24 HR) 100 mg Tablet PO (07:58)
[2023-09-26 10:40] LABS: Glucose Point of Care 122 mg/dL (70-110)
--- NOTE | 2023-09-26 12:35 | PM.PN ---
Subjective Subjective: No acute events overnight. Patient states he is feeling a lot better. Does not have any pressure or chest pain anymore. He remains on room air. Blood pressure is better but slightly elevated. Denies any nausea, vomiting, headache. Hemodynamically has remained stable. Vitals/I&O/Wt Last Vital Signs Temp 98.3 F 09/26/23 07:29 Pulse 77 09/26/23 12:13 Resp 18 09/26/23 12:13 BP 146/85 09/26/23 12:13 Pulse Ox 97 09/26/23 12:13 O2 Del Method Room Air 09/26/23 07:29 09/25/23 09/26/23 09/26/23 22:59 06:59 14:59 Intake Total 480 / 630 100 / 730 250 / 250 Output Total 3150 / 3150 650 / 3800 Balance -2670 / -2520 -550 / -3070 250 / 250 Weight last 48 hrs Weight 101.786 kg Weight 99.989 kg Weight 101.831 kg Weight 99.79 kg Physical Exam Narrative: General: No acute distress, AO x3, laying comfortably in bed. Of the physical. HEENT: PERRLA, pupils bilaterally equal and reactive Chest: Normal vesicular breath sounds, bilateral fine crackles up to mid chest CVS: S1-S2 regular, soft pansystolic murmur at apex, no tachycardia, no gallops, no rubs Abdomen: Soft, nontender, no organomegaly, bowel sounds present Neuro: No focal deficits, no facial deformity, AO x3, power 5/5 in all limbs Urinary Catheter Management: Rodriguez: Cath Placed During This Visit: yes Reason for Continuing Indwelling Catheter: Accurate Measurement of Urinary Output in Critically Ill Patients Urinary Catheter Date of Insertion: 09/25/23 Urinary Catheter Time of Insertion: 15:15 Data 09/26/23 05:38 09/26/23 05:38 Micro: Microbiology 09/25/23 11:22 Blood Culture - Preliminary Blood NEGATIVE TO DATE 09/25/23 10:40 Blood Culture - Preliminary Blood NEGATIVE TO DATE 09/25/23 15:15 Bacterial Antigens - Final Urine Kidney A&P Assessment and plan (1) Congestive heart failure: Symptoms of orthopnea and exertional shortness of breath. Concerns for congestive heart failure. Recent echocardiogram done within the last 3 months showed diastolic dysfunction with normal EF and no regional wall motion abnormality without valvular disorder. Echocardiogram done this hospitalization shows grade 3 diastolic dysfunction, normal EF without regional wall motion abnormality, moderate MR. Blood pressures elevated. Cannot rule out diastolic heart failure in setting of elevated blood pressures and CKD. IV Lasix 40 mg daily. Strict input charting, daily weights. Rodriguez catheterization. Fluid restriction up to 1500 cc. Plan for possible stress test once patient is more euvolemic. (2) Acute on chronic renal failure: Baseline creatinine around 1.3-1.4. Currently 1.5. History of renal failure requiring dialysis in the past. Rodriguez catheterization. Concerns for urinary bladder outlet obstruction. Appreciate urine lites. Creatinine has remained stable. Medical reconciliation done for nephrotoxic drugs. Continue to hold off on lisinopril for now. Monitor electrolytes as patient is on IV diuresis. Potassium for now stable. (3) History of atrial fibrillation: Continue with home dose of metoprolol. secured entrance monitor. (4) Hypertension: Goal blood pressure less than 140/90 mmHg. Blood pressure remained mildly elevated. Continue with home dose of amlodipine and metoprolol. Add hydralazine 25 mg 3 times daily within next 24 hours. For now we will continue with IV diuresis for better diuretic effect will hold off on hydralazine for now. IV hydralazine 10 mg IV 4 hours as needed for systolic blood pressure more than 160 mmHg Qualifiers: Hypertension type: essential hypertension Qualified Code(s): I10 - Essential (primary) hypertension (5) Diabetes mellitus: Last A1c of 6.2 in last 5 months. Insulin sliding scale. Blood sugars mildly elevated. Will start on Lantus 10 units nightly. Qualifiers: Diabetes mellitus type: type 2 Diabetes mellitus intermediate card tender insulin use: with intermediate card tender use Diabetes mellitus complication status: with other specified complication Qualified Code(s): E11.69 - Type 2 diabetes mellitus with other specified complication; Z79.4 - intermediate card tender (current) use of insulin (6) Hyponatremia: Stable. Present on admission most likely in setting of hypervolemia hyponatremia. Monitor daily. (7) Anemia: Baseline hemoglobin around 8. 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 Hemoglobin slightly below 8 today. Stool for occult blood pending. Hold off on transfusion for now given concerns for mild congestive heart failure. Check vitamin B12, folate, reticulocyte count as well. Check ferritin. Continue with home dose of Protonix twice daily. (8) Monoclonal gammopathy: Plan Chest pain: Could be in setting of congestive heart failure. Troponin cycled negative. Recent stress test in July 2022 did show mild justin-infarct ischemia thought to be pulmonary or respiratory artifact. Continue with home dose of dual antiplatelet, statin and metoprolol. Appreciate recent A1c lipid panel. Continue with chronic oral medications including duloxetine, pregabalin. Full code Cardiac carb consistent diet Protonix for PUD prophylaxis Heparin for DVT prophylaxis. Admit to CSU. Attestations Medical Necessity Statement*: Requires further hospitalization for management of diastolic congestive heart failure in setting of elevated blood pressures in a patient with CKD Diagnoses Congestive heart failure I50.9 Acute on chronic renal failure N17.9; N18.9 History of atrial fibrillation Z86.79 Essential hypertension I10 Hypertension type: essential hypertension Type 2 diabetes mellitus with other specified complication, with long-term current use of insulin E11.69; Z79.4 Diabetes mellitus type: type 2 Diabetes mellitus intermediate card tender insulin use: with skilled nursing use Diabetes mellitus complication status: with other specified complication Hyponatremia E87.1 Anemia D64.9 Monoclonal gammopathy D47.2
[2023-09-26] MEDS: FUROsemide 10 mg/mL SDV 4mL 40 MG IVP (12:53)
[2023-09-26 13:19] LABS: Reticulocyte % 1.5 % (0.5-2.0)
[2023-09-26 13:27] LABS: Iron 60 ug/dL (59-158); Percent Saturation 36.8 % (20-50); Total Iron Binding Capacity 163 mcg/dl; Unsaturated Iron Binding 103 ug/dL (112-347)
[2023-09-26 13:41] LABS: Ferritin 1183 ng/mL (30-400)
[2023-09-26 13:43] LABS: Vitamin B12 844 pg/mL (232-1245)
[2023-09-26 17:54] LABS: Glucose Point of Care 180 mg/dL (70-110)
[2023-09-26 20:11] LABS: Glucose Point of Care 243 mg/dL (70-110)
[2023-09-26] MEDS: atorvastatin 40 mg Tablet 80 MG PO (21:26)
[2023-09-26] MEDS: insulin glargine 100 units/1 mL 10 UNIT SUBCUT (21:27)
[2023-09-27] VITALS: BP 115/65; PULSE 71; RESP 22; TEMP 36.6; O2SAT 97
[2023-09-27 03:41] VITALS: BP 175/92; PULSE 77; RESP 15; TEMP 36.9; O2SAT 97
[2023-09-27] MEDS: clopidogrel 75 mg Tablet PO (05:05)
[2023-09-27] MEDS: heparin 5,000 unit/mL INJ 1 mL 5000 UNIT SUBCUT (05:05)
[2023-09-27] MEDS: aspirin 81 mg EC Tablet PO (05:06)
[2023-09-27] MEDS: amlodipine 10 mg Tablet PO (05:06)
[2023-09-27 05:17] LABS: Basophils % 0.4 %; Eosinophils # 0.3 10^3/uL (0.0-0.8); Eosinophils % 4.2 %; Hematocrit 27.2 % (37-53); Lymphocytes # 1.6 10^3/uL (0.8-4.8); Lymphocytes % 22.3 %; Mean Corpuscular HGB Conc 33.5 g/dL (30-55); Mean Corpuscular Hemoglobin 32.4 pg (27-33); Mean Corpuscular Volume 96.8 fl (82-101); Mean Platelet Volume 9.4 fL (7.4-10.4); Monocytes # 0.5 10^3/uL (0.2-0.9); Monocytes % 6.9 %; Neutrophils # 4.64 10^3/uL (1.8-7.7); Neutrophils % 65.2 %; Nucleated Red Blood Cells % 0 %; Platelet Count 309 10^3/cmm (157-399); Red Blood Count 2.81 10^6/uL (3.85-5.65); Red Cell Distribution Width 13.1 % (12.1-15.1); White Blood Count 7.12 10^3/uL (3.29-11.43)
[2023-09-27 05:40] LABS: Alanine Aminotransferase 25 U/L (0-41); Albumin Level 3.3 g/dL (3.5-5.2); Alkaline Phosphatase 102 U/L (40-130); Anion Gap 11.3 (5-19); Aspartate Amino Transferase 16 U/L (0-40); Blood Urea Nitrogen 33 mg/dL (8-23); Calcium 8.7 mg/dL (8.5-10.5); Carbon Dioxide 24 mmol/L (22-29); Chloride 104 mmol/L (98-107); Globulin 4.8 g/dL (1.3-4.6); Glucose 103 mg/dL (65-115); Osmolality Calculated 288 mOsm/kg (285-295); Potassium 4.3 mmol/L (3.5-5.1); Sodium 135 mmol/L (136-145); Total Bilirubin 0.3 mg/dL (0.15-1.2); Total Protein 8.1 g/dL (6.6-8.7)
[2023-09-27 05:41] LABS: Magnesium 1.7 mg/dL (1.7-2.3)
[2023-09-27 05:45] LABS: Creatinine Clr Calc Pharmacy 55.5027
[2023-09-27 06:00] VITALS: PULSE 74
[2023-09-27 06:16] LABS: Folate Level > 20.0 ng/mL (4.5-32.2)
[2023-09-27 06:37] LABS: Glucose Point of Care 111 mg/dL (70-110)
[2023-09-27] MEDS: duloxetine 30 mg Capsule PO (07:49)
[2023-09-27] MEDS: hyDRALAzine 20 mg/mL INJ 1 mL 10 MG IVP (07:49)
[2023-09-27] MEDS: metoprolol succinate ER (24 HR) 100 mg Tablet PO (07:49)
[2023-09-27] MEDS: pantoprazole DR 40 mg Tablet PO (07:49)
[2023-09-27] MEDS: pregabalin 150 mg Capsule PO (07:49)
[2023-09-27 08:00] VITALS: BP 132/74; PULSE 75; RESP 18; TEMP 36.6; O2SAT 97
--- NOTE | 2023-09-27 08:44 | PC.NURSE ---
During bedside rounding patient is resting in bed watching tv. Patient states that he is feeling much better and is eager to go home. All morning medications administered per orders. Nurse will continue to monitor.
[2023-09-27 09:20] VITALS: PULSE 75; RESP 18; O2SAT 97
--- NOTE | 2023-09-27 09:56 | P.DS_ITS ---
Discharge Providers Date of Admission: 09/25/23 15:29 Date of Discharge: September 27, 2023 Attending Provider at Admission: Modesto Barahona MD Attending Provider at Discharge: Modesto Barahona MD Primary Care Provider: Pam Diaz MD Diagnoses at Discharge Discharge Diagnosis (1) Congestive heart failure: Status: Suspected (2) Acute on chronic renal failure: Status: Acute (3) History of atrial fibrillation: Status: Acute (4) Hypertension: Status: Acute Qualifiers: Hypertension type: essential hypertension Qualified Code(s): I10 - Essential (primary) hypertension (5) Diabetes mellitus: Status: Acute Qualifiers: Diabetes mellitus complication status: with other specified complication Diabetes mellitus chcf insulin use: with sizing sprayer use Diabetes mellitus type: type 2 Qualified Code(s): E11.69 - Type 2 diabetes mellitus with other specified complication; Z79.4 - racing board marker (current) use of insulin (6) Hyponatremia: Status: Acute (7) Anemia: Status: Acute (8) Monoclonal gammopathy: Status: Acute Reason for Visit Reason for Visit: chest pain Hospital Course Hospital Course Wayne Aguilar is a 62 year old male with past medical history of CKD, on temporary dialysis in past for a short while, type 2 diabetes mellitus, possibility of IgG gamma globin apathy under workup with Dr. Glynn, hypertension, hyperlipidemia, present to the ER with concerns for tightness on the chest, difficulty in breathing, heaviness in chest which is bandlike along with heaviness in his abdomen which is getting worse over last 1 week to 10 days. Symptoms are exacerbated on minimal ambulation on laying down flat. Denies any chest pain. Patient gives history of recent travel to [facility] recently when he was feeling fine. Denies any fever, nausea, vomiting, headache, dizziness, diarrhea. It seems patient did present with similar complaints to cardiology office earlier in June when he underwent echocardiogram and was found to have diastolic dysfunction with a normal EF. Patient was admitted to the hospital further evaluation and management of con gestive heart failure. Was started on IV diuresis. On admission was found to be having elevated blood pressures. Repeat echocardiogram was done which showed grade 3 diastolic dysfunction, mild LVH with severe elevated filling pressures, moderate MR. His antihypertensives were adjusted as per the goal blood pressure less than 140/90 mmHg. Patient responded well to the treatment and has symptoms alleviated with IV diuretics. He is been discharged in hemodynamically stable condition on adjusted antihypertensives with advised to follow-up with a primary care provider as an outpatient within next 10 days with blood pressure diary and on daily Lasix 40 mg. He has been counseled in detail about fluid restriction and lifestyle modification with congestive heart failure. Physical Exam Narrative: General: No acute distress, AO x3, laying comfortably in bed. Of the physical. HEENT: PERRLA, pupils bilaterally equal and reactive Chest: Normal vesicular breath sounds, bilateral fine crackles up to mid chest CVS: S1-S2 regular, soft pansystolic murmur at apex, no tachycardia, no gallops, no rubs Abdomen: Soft, nontender, no organomegaly, bowel sounds present Neuro: No focal deficits, no facial deformity, AO x3, power 5/5 in all limbs Urinary Catheter Management: Rodriguez: Cath Placed During This Visit: yes Reason for Continuing Indwelling Catheter: Accurate Measurement of Urinary Output in Critically Ill Patients Urinary Catheter Date of Insertion: 09/25/23 Urinary Catheter Time of Insertion: 15:15 Discharge Data Studies Completed and Pending Completed Studies During Hospitalization Category Date Time Status CT chest wo con [id number] Stat Cat Scan 09/25/23 14:27 Completed XR chest 1V [id number] Stat Exams 09/25/23 10:29 Completed CV. echo complete* [id number] Routine Ultrasound 09/25/23 14:39 Completed Pending at discharge Category Date Time Status Blood Culture Stat Lab 09/25/23 11:22 Results MAG [Magnesium] AM LABS Lab 09/28/23 04:00 Ordered Occult Blood Stool [Immunochemical Fecal OCB] Routine Lab 09/25/23 14:42 Uncollected Radiology Impressions Chest X-Ray 09/25/23 10:29 IMPRESSION: Chronic interstitial prominence with possible superimposed fluid overload or infiltrate. Chest CT 09/25/23 14:27 IMPRESSION: Nonspecific findings which could represent congestive heart failure. The most prominent feature is moderate bilateral effusions. Echocardiogram: CONCLUSIONS Normal left ventricular size and systolic function, EF 64% . Grade III/IV diastolic dysfunction (restrictive filling pattern), severely elevated filling pressures. Mild left ventricular hypertrophy. Mildly increased left atrial size. Thickened mitral valve. Mild mitral annular calcification. Moderate mitral valve regurgitation. Thickened aortic valve. There is no pericardial effusion. There are no intracardiac masses. Compared to the study from 07/29/2023 the mitral regurgitation appears to be moderate at this time Laboratory Results WBC 7.12 10^3/uL (3.29-11.43) 09/27/23 05:01 RBC 2.81 10^6/uL (3.85-5.65) L 09/27/23 05:01 Hgb 9.10 g/dL (11.27-16.99) L 09/27/23 05:01 Hct 27.2 % (37-53) L 09/27/23 05:01 MCV 96.8 fl (82-101) 09/27/23 05:01 MCH 32.4 pg (27-33) 09/27/23 05:01 MCHC 33.5 g/dL (30-55) 09/27/23 05:01 RDW 13.1 % (12.1-15.1) 09/27/23 05:01 Plt Count 309 10^3/cmm (157-399) 09/27/23 05:01 MPV 9.4 fL (7.4-10.4) 09/27/23 05:01 Neut % (Auto) 65.2 % 09/27/23 05:01 Lymph % (Auto) 22.3 % 09/27/23 05:01 [place] % (Auto) 6.9 % 09/27/23 05:01 Eos % (Auto) 4.2 % 09/27/23 05:01 Baso % (Auto) 0.4 % 09/27/23 05:01 Reticulocyte % (Auto) 1.5 % (0.5-2.0) 09/26/23 05:38 Neut # (Auto) 4.64 10^3/uL (1.8-7.7) 09/27/23 05:01 Lymph # (Auto) 1.6 10^3/uL (0.8-4.8) 09/27/23 05:01 [place] # (Auto) 0.5 10^3/uL (0.2-0.9) 09/27/23 05:01 Eos # (Auto) 0.3 10^3/uL (0.0-0.8) 09/27/23 05:01 Baso # (Auto) 0.0 10^3/uL (0.0-0.1) 09/27/23 05:01 Nucleated RBC % (auto) 0 % 09/27/23 05:01 Nucleated RBCs # 0.0 /100WBC 09/27/23 05:01 Sodium 135 mmol/L (136-145) L 09/27/23 05:01 Potassium 4.3 mmol/L (3.5-5.1) 09/27/23 05:01 Chloride 104 mmol/L (98-107) 09/27/23 05:01 Carbon Dioxide 24 mmol/L (22-29) 09/27/23 05:01 Anion Gap 11.3 (5-19) 09/27/23 05:01 BUN 33 mg/dL (8-23) H 09/27/23 05:01 Creatinine 1.6 mg/dL (0.7-1.2) H 09/27/23 05:01 GFR Calculation 44.0 mL/min (90-130) L 09/27/23 05:01 Glucose 103 mg/dL (65-115) 09/27/23 05:01 POC Glucose 111 mg/dL (70-110) H 09/27/23 06:32 Calculated Osmolality 288 mOsm/kg (285-295) 09/27/23 05:01 Lactic Acid 1.3 mmol/L (0.5-2.2) 09/25/23 15:00 Calcium 8.7 mg/dL (8.5-10.5) 09/27/23 05:01 Phosphorus 3.4 mg/dL (2.5-4.5) 09/26/23 05:38 Magnesium 1.7 mg/dL (1.7-2.3) 09/27/23 05:01 Iron 60 ug/dL (59-158) 09/26/23 05:38 TIBC 163 mcg/dl 09/26/23 05:38 % Saturation 36.8 % (20-50) 09/26/23 05:38 Unsat Iron Binding 103 ug/dL (112-347) L 09/26/23 05:38 Ferritin 1183 ng/mL (30-400) H 09/26/23 05:38 Total Bilirubin 0.3 mg/dL (0.15-1.2) 09/27/23 05:01 AST 16 U/L (0-40) 09/27/23 05:01 ALT 25 U/L (0-41) 09/27/23 05:01 Alkaline Phosphatase 102 U/L (40-130) 09/27/23 05:01 Troponin T Baseline 36 ng/L (0-15) H 09/25/23 10:40 Troponin T 120 Minute 25.69 ng/L (0-15) H 09/25/23 12:41 Delta Troponin T -10.31 ABS# (0-10) L 09/25/23 12:41 Troponin T Hi Sens 6Hr 23.65 ng/L (0-15) H 09/25/23 15:00 Troponin T Hi Sens 6Hr Delta -12.35 ng/L (0-12) L 09/25/23 15:00 C-Reactive Protein 5.9 mg/L (0.0-4.9) H 09/25/23 10:40 NT-Pro-B Natriuret Pep 1889 pg/mL (0-125) H 09/25/23 10:40 Total Protein 8.1 g/dL (6.6-8.7) 09/27/23 05:01 Albumin 3.3 g/dL (3.5-5.2) L 09/27/23 05:01 Globulin 4.8 g/dL (1.3-4.6) H 09/27/23 05:01 Vitamin B12 844 pg/mL (232-1245) 09/26/23 05:38 Folate > 20.0 ng/mL (4.5-32.2) 09/27/23 05:01 Procalcitonin 0.07 ng/mL (0-0.5) 09/26/23 05:38 Urine Color Yellow (Yellow) 09/25/23 15:15 Urine Appearance Clear (CLEAR) 09/25/23 15:15 Urine pH 5 (5-7) 09/25/23 15:15 Ur Specific [place] 1.015 (1.005-1.030) 09/25/23 15:15 Urine Protein 2+ (Negative) H 09/25/23 15:15 Urine Glucose (UA) 1+ (Normal) H 09/25/23 15:15 Urine Ketones Negative (Negative) 09/25/23 15:15 Urine Blood 2+ (Negative) H 09/25/23 15:15 Urine Nitrate Negative (Negative) 09/25/23 15:15 Urine Bilirubin Neg (Negative) 09/25/23 15:15 Urine Urobilinogen Norm mg/dL (Negative) 09/25/23 15:15 Ur Leukocyte Esterase Negative (Negative) 09/25/23 15:15 Urine RBC 0-4 /hpf (0-2) H 09/25/23 15:15 Urine WBC None /hpf (0-5) 09/25/23 15:15 Ur Eosinophil Smear Not Reportable 09/25/23 15:15 Ur Squamous Epith Cells None /hpf (0-5) 09/25/23 15:15 Amorphous Sediment Not Reportable 09/25/23 15:15 Urine Bacteria Trace /hpf (NONE) 09/25/23 15:15 Urine Mucus None /hpf 09/25/23 15:15 Urine Eosinophils No eosinophils seen 09/25/23 15:15 Ur Random Sodium 79 mmol/L 09/25/23 15:15 Ur Random Potassium 25 mmol/L 09/25/23 15:15 Ur Random Chloride 76 mmol/L 09/25/23 15:15 Urine Creatinine 61 mg/dL (39-259) 09/25/23 15:15 Urine Opiates Screen Positive ng/mL (Negative) H 09/25/23 15:15 Ur Barbiturates Screen Negative ng/mL (Negative) 09/25/23 15:15 Ur Phencyclidine Scrn Negative ng/mL (Negative) 09/25/23 15:15 Ur Amphetamines Screen Negative ng/mL (Negative) 09/25/23 15:15 U Benzodiazepines Scrn Negative ng/mL (Negative) 09/25/23 15:15 Urine Cocaine Screen Negative ng/mL (Negative) 09/25/23 15:15 U Marijuana (THC) Screen Negative ng/mL (Negative) 09/25/23 15:15 Adenovirus (PCR) Not detected (NOT DETECT) 09/25/23 10:50 C. pneumoniae DNA (PCR) Not detected (NOT DETECT) 09/25/23 10:50 Coronavirus 229E (PCR) Not detected (NOT DETECT) 09/25/23 10:50 Human Metapneumovir PCR Not detected (NOT DETECT) 09/25/23 10:50 Influenza A (H1) PCR Not detected (NOT DETECT) 09/25/23 10:50 Influ A (H1/09) PCR Not detected (NOT DETECT) 09/25/23 10:50 Influenza A (H3) PCR Not detected (NOT DETECT) 09/25/23 10:50 Influenza Type A (PCR) Not detected (NOT DETECT) 09/25/23 10:50 Influenza Type B (PCR) Not detected (NOT DETECT) 09/25/23 10:50 M. pneumoniae (PCR) Not detected (NOT DETECT) 09/25/23 10:50 Parainfluenza 1 (PCR) Not detected (NOT DETECT) 09/25/23 10:50 Parainfluenza 2 (PCR) Not detected (NOT DETECT) 09/25/23 10:50 Parainfluenza 3 (PCR) Not detected (NOT DETECT) 09/25/23 10:50 Parainfluenza 4 (PCR) Not detected (NOT DETECT) 09/25/23 10:50 RSV Type A (PCR) Not detected (NOT DETECT) 09/25/23 10:50 RSV Type B (PCR) Not detected (NOT DETECT) 09/25/23 10:50 Entero/Rhino (PCR) Not detected (NOT DETECT) 09/25/23 10:50 SARS-CoV-2 (PCR) Not detected (NOT DETECT) 09/25/23 10:50 Vitals Last Vital Signs Temp 97.8 F 09/27/23 08:00 Pulse 75 09/27/23 09:20 Resp 18 09/27/23 09:20 BP 132/74 09/27/23 08:00 Pulse Ox 97 09/27/23 09:20 O2 Del Method Room Air 09/27/23 09:20 Discharge Plan Discharge Patient Disposition: Home Condition: Stable Prescriptions: New hydralazine 25 mg tablet 25 mg PO TID Qty: 90 0RF Lasix 40 mg tablet 40 mg PO DAILY Qty: 30 0RF Continued (DME) Diabetic Shoes with 3 sets of inserts See Rx Instructions .ROUTE .MEDSUPPLY Qty: 1 0RF Rx Instructions: As directed ([facility] Walker See Rx Instructions .Route .MEDSUPPLY Qty: 1 0RF Rx Instructions: As directed ([facility] carbon fiber [place] bilaterally- AFO See Rx Instructions .Route .MEDSUPPLY Qty: 1 0RF Rx Instructions: As directed by [employer] (DME) AFO to right See Rx Instructions .Route .MEDSUPPLY Qty: 1 0RF Rx Instructions: As directed by [employer] ([facility] extra depth shoe with custom molded accommodative insoles See Rx Instructions .Route .MEDSUPPLY Qty: 1 0RF Rx Instructions: As directed made by the shoe murray ([facility]) Compression stockings See Rx Instructions .Route .MEDSUPPLY Qty: 3 0RF Rx Instructions: As directed by DC triamcinolone acetonide 0.1 % cream 1 applic topical BID Qty: 30 2RF ([facility] Custom Molded Accomodative Orthotics and Diabetic Shoes See Rx Instructions .Route .MEDSUPPLY Qty: 1 0RF Rx Instructions: As directed, custom made by [employer] ([facility]) Bedside commode See Rx Instructions .Route .MEDSUPPLY Qty: 1 0RF Rx Instructions: As directed BY HOME ([facility]) Shower chair See Rx Instructions .Route .MEDSUPPLY Qty: 1 0RF Rx Instructions: As directed by HOME ([facility]) Wheelchair with elevated foot rest See Rx Instructions .Route .MEDSUPPLY Qty: 1 0RF Rx Instructions: As directed by DRAPER polyethylene glycol 3350 [Miralax] 17 gram Powder In Packet 17 g PO DAILY cholecalciferol (vitamin D3) 25 mcg (1,000 unit) Tablet 50 mcg PO QAM aspirin [[place] Low Dose Aspirin] 81 mg Tablet,Delayed Release (Dr/Ec) 81 mg PO QAM 30 Days Qty: 30 3RF ([facility] blood pressure monitor [Blood Pressure Kit] Kit See Rx Instructions .Route Qty: 1 0RF Rx Instructions: As directed pantoprazole 40 mg tablet,delayed release (DR/EC) 40 mg PO BID tramadol 50 mg tablet 50 mg PO .Q4-6H PRN (Reason: pain) B complex-vitamin C-folic acid 1 mg Tablet 1 tab PO DAILY omega-3 fatty acids 1,000 mg Capsule 2,000 mg PO BID carboxymethylcellulose sodium 0.5 % Drops 2 drp ophthalmic (eye) TID PRN (Reason: redness) lidocaine 5 % Adhesive Patch,Medicated 1 patch topical DAILY PRN (Reason: Pain) Rx Instructions: on for 12 hours off for 12 hours glucose 4 gram Tablet,Chewable 4 g PO Q15M PRN (Reason: for low blood sugar) Rx Instructions: until symptoms of low blood sugar are controlled docusate sodium [Colace] 100 mg Capsule 200 mg PO BID insulin aspart U-100 100 unit/mL (3 mL) Insulin Pen 4 unit SUBCUT TID tadalafil 20 mg Tablet 20 mg PO DAILY PRN (Reason: Erectile Dysfunction) Rx Instructions: administer approximately 30min before sexual activity; do not use more than 1 dose per 24hrs semaglutide 1 mg/dose (2 mg/1.5 mL) Pen Injector 1 mg SUBCUT Q7D Rx Instructions: on sundays clopidogrel 75 mg tablet 75 mg PO QAM atorvastatin 80 mg Tablet 80 mg PO BEDTIME cetirizine 10 mg Tablet 10 mg PO DAILY tizanidine 4 mg Tablet 4 mg PO BID PRN (Reason: Spasms) metoprolol succinate 200 mg Tablet Extended Release 24 Hr 100 mg PO DAILY hydroxyzine HCl 50 mg Tablet 50 mg PO BEDTIME fluticasone propionate 50 mcg/actuation [place],Suspension 2 spray INTRANASAL DAILY Rx Instructions: administer into each nostril duloxetine 30 mg Capsule,Delayed Release(Dr/Ec) 30 mg PO BID lactulose 10 gram/15 mL Solution 15 ml PO DAILY PRN (Reason: Constipation) pregabalin 150 mg Capsule 150 mg PO DAILY diclofenac sodium 1 % Gel 2 g TOPICAL QID Rx Instructions: apply to single elbow, wrist or hand; for hand includes palm/fingers/back of hand amlodipine 10 mg tablet 10 mg PO QAM Rx Instructions: Dose change Discontinued nystatin 100,000 unit/mL Suspension 5 ml PO TID Rx Instructions: swish and swallow lisinopril 20 mg Tablet 20 mg PO DAILY Discharge Orders: Discharge Order (Routine); Ordered 09/27/23 Ordered By: Modesto Barahona Referrals: Pam Diaz MD [Primary Care Provider] - 7-10 days (Dr. Diaz's Office has your information and will be calling you to schedule a follow up appointment. They were unable to make a an appointment for me over the phone. You can call them if you have any questions or concerns. Thank you.) Discharge Diet: Cardiac Discharge Activity: Resume usual activity and Increase activity as tolerated Patient Instructions: Hydralazine (By mouth) (Apresoline), Heart Failure (DC), CHF Stoplight, Opioid Safety Activity Restrictions/Additional Instructions: Restrict fluid intake to less than 1500 cc, salt intake to less than 2 g daily. Advised to check his weight daily at home. Is advised that weight today would be the dry weight and if body weight increases by around 5 pounds, patient is to take an extra dose of Lasix daily till body weight comes down to weight today. If not able to come down to dry body weight in 1 week, then is to call cardiology office for further recommendations. Patient was counseled in detail to take medications regularly as prescribed. Please monitor blood pressures daily and maintain a blood pressure and follow-up with a primary care provider within next 10 days for further adjustment of antihypertensives. Discharge Attestations Time Spent in Discharge Care*: greater than 30 min Specific Discharge Activities: educating patient, discussing with pcp/other providers, discussing with spring encaser/social workers/dc planners, documenting/other paperwork and evaluating patient/reviewing data Status at Discharge: Cognitive status at discharge: cognitively intact , Behavioral status at discharge: cooperative , Functional status at discharge: independent ambulation , Overall status at discharge: patient is back to baseline Quality Metrics Clinical Quality Measures [ No reported AMI, CVA or VTE this stay] Coding Level of Care Code 23312 Total time (in minutes) for Discharge: 60 Diagnoses Congestive heart failure I50.9 Acute on chronic renal failure N17.9; N18.9 History of atrial fibrillation Z86.79 Essential hypertension I10 Hypertension type: essential hypertension Type 2 diabetes mellitus with other specified complication, with long-term current use of insulin E11.69; Z79.4 Diabetes mellitus complication status: with other specified complication Diabetes mellitus chcf insulin use: with chcf use Diabetes mellitus type: type 2 Hyponatremia E87.1 Anemia D64.9 Monoclonal gammopathy D47.2
[2023-09-27 10:48] LABS: Glucose Point of Care 172 mg/dL (70-110)
--- NOTE | 2023-09-27 11:23 | PC.NURSE ---
Patient discharged to home via POV. Patient education regarding new onset heart failure, CHF stoplight, and medications were presented to the patient with verbal understanding. Patient left with all of his belongings aside from a hat that says [employer] on it and a pair of sun glasses. He believes he left both of these in the chair in ER. ER says they do not have these items in possession but will let us know if they are found. Vital signs all stable upon departure and prescriptions have been sent to [facility].
[2023-09-27 11:26] VITALS: PULSE 75; RESP 18; O2SAT 97
== END 2023-09-27 11:28 | disposition home or self-care (01) | DRG 292 ==
LOC: ER 14:38 → CSU 15:29
PROVIDERS: Admitting Provider Student in an Organized Health Care Education/Training Program; Emergency Provider Emergency Medicine; PCP Family Medicine; Visit Provider Student in an Organized Health Care Education/Training Program
DX: I13.0 Hypertensive heart and chronic kidney disease with heart failure and stage 1 through stage 4 chronic kidney disease, or unspecified chronic kidney disease (principal); E87.1 Hypo-osmolality and hyponatremia; I50.30 Unspecified diastolic (congestive) heart failure; N17.9 Acute kidney failure, unspecified; N18.9 Chronic kidney disease, unspecified; E11.22 Type 2 diabetes mellitus with diabetic chronic kidney disease; D47.2 Monoclonal gammopathy; Z11.52 Encounter for screening for COVID-19; E78.5 Hyperlipidemia, unspecified; I48.91 Unspecified atrial fibrillation; E11.42 Type 2 diabetes mellitus with diabetic polyneuropathy; E86.1 Hypovolemia; D63.1 Anemia in chronic kidney disease; I34.0 Nonrheumatic mitral (valve) insufficiency; Z79.82 Long term (current) use of aspirin; Z79.02 Long term (current) use of antithrombotics/antiplatelets; Z79.4 Long term (current) use of insulin; Z79.85 Long-term (current) use of injectable non-insulin antidiabetic drugs; Z89.422 Acquired absence of other left toe(s); Z89.421 Acquired absence of other right toe(s)
CPT/HCPCS: 36415; 36416; 51702; 71045; 71250; 80053; 80306; 81001; 82436; 82570; 82607; 82728; 82746; 82962; 83540; 83550; 83605; 83735; 83880; 84100; 84133; 84145; 84300; 84484; 85025; 85045; 85999; 86140; 86403; 87040; 87486; 87581; 87633; 93005; 93306; 94640; 94664; 96365; 96372; 96375; 96376; 99285; J0360; J1644; J1815; J1940; J1956; J2270; J2405; J2919; J7613

== ENCOUNTER 2023-10-06 10:49 | Emergency (ER) | payer OTHER, SELFPAY ==
[2023-10-06] VITALS (7 sets, daily range): BP systolic 149–193; BP diastolic 88–94; PULSE 76–100; RESP 17–20; TEMP 36.9; O2SAT 95–99
--- NOTE | 2023-10-06 11:47 | ED_ITS ---
HPI - Back Pain/Injury 2 General: Chief Complaint: Back Pain/Injury Stated Complaint: pain after bone biopsy Time Seen by Provider: 10/06/23 11:09 Source: patient and family Mode of arrival: ambulatory Limitations: no limitations History of Present Illness: severe back pain, recent bone marrow biopsy at [facility]. now with swelling and increase pain adjacent to site. Pain is severe enough to take our breath away. no falls or other injuries known. no fever. 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 of other part of right foot limited to breakdown of skin Stroke Lumbar paraspinal muscle spasm Glenohumeral arthritis Lumbar disc disease with radiculopathy 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 Pain management contract signed Degenerative lumbar disc Hyperlipidemia Hypertension Diabetes mellitus Surgical History 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 S/P dialysis catheter insertion Hx of appendectomy Hx of foot surgery Hx of cholecystectomy Family History Son Acute leukemia Denies family history of Anesthesia complication Social History Smoking and tobacco/nicotine status: never used tobacco/nicotine Alcohol intake: never Substance/Drug Use: never Caregiver/support person: Yes Lives independently: Yes Physical Exam 2 Const: COMMON NORMALS: no acute distress, average body habitus, patient oriented x3, healthy appearing, alert and well nourished GENERAL APPEARANCE: well kempt and well developed HENMT: COMMON NORMALS: normocephalic, atraumatic, external ears normal and moist oral mucous membranes HEAD & SCALP: normocephalic and atraumatic E XTERNAL EAR: Yes external ears normal Eye: COMMON NORMALS: Equal, round and reactive pupils present, EOMs intact bilaterally and conjunctivae normal CONJUNCTIVA: Yes conjunctivae normal P UPIL: Yes Equal, round and reactive pupils present Neck/C-Spine: COMMON NORMALS: full ROM, no lymphadenopathy and supple Chest: CHEST: Yes Symmetrical chest wall rise and No Surgical scars present (Chest) Resp: COMMON NORMALS: normal respiratory effort, No retractions, No use of accessory muscles and clear to auscultation bilaterally AUSCULTATION: clear to auscultation bilaterally Cardio: COMMON NORMALS: regular rate, regular rhythm, S1 normal heart sound present, S2 normal heart sound present, No gallops present (Cardio), No clicks present (Cardio), No murmurs present (Cardio) and No rub (Cardio) RATE: r egular rate RHYTHM: regular rhythm HEART SOUNDS: S1 normal heart sound present, S2 normal heart sound present and no murmurs PERIPHERAL PULSES: o ther (Radial pulses 2+ and symmetric) GI: COMMON NORMALS: Soft to palpation, non-tender and no masses INSPECTION: No abdominal distension PALPATION: Yes Soft to palpation, No Guarding due to palpation present (GI) and No Rebound tenderness present : COMMON NORMALS: Yes no CVA tenderness BLADDER/KIDNEY EXAM: Yes no CVA tenderness Back/Pelvis: COMMON NORMALS: no CVA tenderness BACK IMAGE (MALE): 1. just lateral to injection site is a hard knot about 2x3cm no erythema, moderately tender. back pain is worse than when this is palpated. Extremity: COMMON NORMALS: normal to inspection, full ROM, capillary refill normal and no clubbing, cyanosis or edema Neuro: COMMON NORMALS: patient oriented x3 SENSORIUM/ORIENTATION: Yes alert Psych: APPEARANCE: Yes well kempt Skin: COMMON NORMALS: no rashes or lesions noted, no wounds, turgor normal and no jaundice GENERAL SKIN EXAM: no rashes or lesions noted and turgor normal Procedures EJ/Peripheral Line Arm L: Time Out Performed: Yes Skin Cleansed in Sterile Fashion: Yes Size (gauge): 20 IV Secured and Dressing Applied: Yes Patient Tolerated Procedure: well and no complications Additional Comments: IV placed to the left forearm under dynamic ultrasound guidance. 1 attempt. No complications. Withdrew blood well and flushed easily. Course 2 Vital Signs: Vital signs: Vital Signs Temperature 98.4 F 10/06/23 11:04 Pulse Rate 76 10/06/23 14:00 Respiratory Rate 18 05/26/24 14:00 Blood Pressure 159/88 10/06/23 14:00 Pulse Oximetry 97 10/06/23 14:00 Oxygen Delivery Me thod Room Air 10/06/23 14:00 MDM - Back Pain/Injury Medical Decision Making Labs reviewed, CT scan done. I see mild stranding at the site where the open biopsy was done. No significant hematoma visible on CT scan. More importantly no hematoma around the spine or iliac crest. Sniffly large bladder. Patient to go urinate and postvoid residual 714 however not obstructed patient encouraged to spend extra time urinating. Cautioned about urinary retention and possible infection or need for Rodriguez catheter placement. Patient's pain is under control and he is requesting discharge. He is not on any long-term controlled medications except for an occasional tramadol. Differential Diagnosis Likely lumbar radiculopathy, sciatica, strain of lumbar region, thoracic back pain and discitis Medical Records I reviewed the patient's medical records. Labs 10/06/23 11:46 10/06/23 11:46 Radiology Impressions Abdomen/Pelvis CT 10/06/23 11:47 IMPRESSION: 1. [id number] multilevel degenerative of the lumbar spine. 2. No collections or hematomas. No acute fracture. 3. No acute intra-abdominal process. 4. Over distended bladder. COMMENTS: Consistent with the [employer]'s Incidental Findings Committee white paper (J Am Axel Radiol 2018): Any incidental renal lesion less than 1 cm or classified as too small to characterize, or any incidental cystic renal lesion characterized as simple-appearing, is likely benign. No follow-up imaging is recommended for these lesions per consensus recommendations based on imaging criteria. Laboratory Results WBC 6.94 10^3/uL (3.29-11.43) 10/06/23 11:46 RBC 3.36 10^6/uL (3.85-5.65) L 10/06/23 11:46 Hgb 10.90 g/dL (11.27-16.99) L 10/06/23 11:46 Hct 31.3 % (37-53) L 10/06/23 11:46 MCV 93.2 fl (82-101) 10/06/23 11:46 MCH 32.4 pg (27-33) 10/06/23 11:46 MCHC 34.8 g/dL (30-55) 10/06/23 11:46 RDW 12.8 % (12.1-15.1) 10/06/23 11:46 Plt Count 268 10^3/cmm (157-399) 10/06/23 11:46 MPV 10.0 fL (7.4-10.4) 10/06/23 11:46 Neut % (Auto) 78.4 % 10/06/23 11:46 Lymph % (Auto) 12.8 % 10/06/23 11:46 [place] % (Auto) 5.8 % 10/06/23 11:46 Eos % (Auto) 2.3 % 10/06/23 11:46 Baso % (Auto) 0.3 % 10/06/23 11:46 Neut # (Auto) 5.44 10^3/uL (1.8-7.7) 10/06/23 11:46 Lymph # (Auto) 0.9 10^3/uL (0.8-4.8) 10/06/23 11:46 [place] # (Auto) 0.4 10^3/uL (0.2-0.9) 10/06/23 11:46 Eos # (Auto) 0.2 10^3/uL (0.0-0.8) 10/06/23 11:46 Baso # (Auto) 0.0 10^3/uL (0.0-0.1) 10/06/23 11:46 Nucleated RBC % (auto) 0 % 10/06/23 11:46 Nucleated RBCs # 0.0 /100WBC 10/06/23 11:46 PT 13.50 SECONDS (12.1-14.9) 10/06/23 11:46 INR 1.00 (0.8-1.2) 10/06/23 11:46 APTT 26.1 SECONDS (23.9-36.7) 10/06/23 11:46 Sodium 128 mmol/L (136-145) L 10/06/23 11:46 Potassium 4.4 mmol/L (3.5-5.1) 10/06/23 11:46 Chloride 96 mmol/L (98-107) L 10/06/23 11:46 Carbon Dioxide 22 mmol/L (22-29) 10/06/23 11:46 Anion Gap 14.4 (5-19) 10/06/23 11:46 BUN 32 mg/dL (8-23) H 10/06/23 11:46 Creatinine 1.4 mg/dL (0.7-1.2) H 10/06/23 11:46 GFR Calculation 51.2 mL/min (90-130) L 10/06/23 11:46 Glucose 400 mg/dL (65-115) H 10/06/23 11:46 Calculated Osmolality 290 mOsm/kg (285-295) 10/06/23 11:46 Calcium 8.6 mg/dL (8.5-10.5) 10/06/23 11:46 Magnesium 1.7 mg/dL (1.7-2.3) 10/06/23 11:46 Total Bilirubin 0.5 mg/dL (0.15-1.2) 10/06/23 11:46 AST 16 U/L (0-40) 10/06/23 11:46 ALT 24 U/L (0-41) 10/06/23 11:46 Alkaline Phosphatase 95 U/L (40-130) 10/06/23 11:46 Total Protein 8.4 g/dL (6.6-8.7) 10/06/23 11:46 Albumin 3.6 g/dL (3.5-5.2) 10/06/23 11:46 Globulin 4.8 g/dL (1.3-4.6) H 10/06/23 11:46 All radiology interpretation(s) finalized by discharge ED provider radiology interpretation(s): see mdm discussion Discharge Plan Discharge Patient Disposition: Home Clinical Impression: Hematoma, Urinary retention with incomplete bladder emptying Low back pain Qualifiers: Chronicity: acute Back pain laterality: midline Sciatica presence: without sciatica Qualified Code(s): M54.50 - Low back pain, unspecified Condition: Stable Prescriptions: New oxycodone-acetaminophen 7.5-325 mg tablet 1 tab PO Q6H PRN (Reason: pain, severe) 5 Days Qty: 14 0RF ondansetron 8 mg tablet,disintegrating 8 mg PO Q8H PRN (Reason: nausea and vomiting) 7 Days Qty: 20 0RF No Action (DME) Diabetic Shoes with 3 sets of inserts See Rx Instructions .ROUTE .MEDSUPPLY Qty: 1 0RF Rx Instructions: As directed ([facility]) Walker See Rx Instructions .Route .MEDSUPPLY Qty: 1 0RF Rx Instructions: As directed ([facility]) carbon fiber ottobock bilaterally- AFO See Rx Instructions .Route .MEDSUPPLY Qty: 1 0RF Rx Instructions: As directed by [employer] ([facility]) AFO to right See Rx Instructions .Route .MEDSUPPLY Qty: 1 0RF Rx Instructions: As directed by [employer] ([facility]) extra depth shoe with custom molded accommodative insoles See Rx Instructions .Route .MEDSUPPLY Qty: 1 0RF Rx Instructions: As directed made by the shoe guaaron ([facility]) Compression stockings See Rx Instructions .Route .MEDSUPPLY Qty: 3 0RF Rx Instructions: As directed by AR triamcinolone acetonide 0.1 % cream 1 applic topical BID Qty: 30 2RF ([facility]) Custom Molded Accomodative Orthotics and Diabetic Shoes See Rx Instructions .Route .MEDSUPPLY Qty: 1 0RF Rx Instructions: As directed, custom made by [employer] ([facility]) Bedside commode See Rx Instructions .Route .MEDSUPPLY Qty: 1 0RF Rx Instructions: As directed BY HOME ([facility]) Shower chair See Rx Instructions .Route .MEDSUPPLY Qty: 1 0RF Rx Instructions: As directed by HOME ([facility]) Wheelchair with elevated foot rest See Rx Instructions .Route .MEDSUPPLY Qty: 1 0RF Rx Instructions: As directed by HOME polyethylene glycol 3350 [Miralax] 17 gram Powder In Packet 17 g PO DAILY cholecalciferol (vitamin D3) 25 mcg (1,000 unit) Tablet 50 mcg PO QAM aspirin [[place] Low Dose Aspirin] 81 mg Tablet,Delayed Release (Dr/Ec) 81 mg PO QAM 30 Days Qty: 30 3RF ([facility]) blood pressure monitor [Blood Pressure Kit] Kit See Rx Instructions .Route Qty: 1 0RF Rx Instructions: As directed pantoprazole 40 mg tablet,delayed release (DR/EC) 40 mg PO BID tramadol 50 mg tablet 50 mg PO .Q4-6H PRN (Reason: pain) B complex-vitamin C-folic acid 1 mg Tablet 1 tab PO DAILY omega-3 fatty acids 1,000 mg Capsule 2,000 mg PO BID carboxymethylcellulose sodium 0.5 % Drops 2 drp ophthalmic (eye) TID PRN (Reason: redness) lidocaine 5 % Adhesive Patch,Medicated 1 patch topical DAILY PRN (Reason: Pain) Rx Instructions: on for 12 hours off for 12 hours glucose 4 gram Tablet,Chewable 4 g PO Q15M PRN (Reason: for low blood sugar) Rx Instructions: until symptoms of low blood sugar are controlled docusate sodium [Colace] 100 mg Capsule 200 mg PO BID insulin aspart U-100 100 unit/mL (3 mL) Insulin Pen 4 unit SUBCUT TID tadalafil 20 mg Tablet 20 mg PO DAILY PRN (Reason: Erectile Dysfunction) Rx Instructions: administer approximately 30min before sexual activity; do not use more than 1 dose per 24hrs semaglutide 1 mg/dose (2 mg/1.5 mL) Pen Injector 1 mg SUBCUT Q7D Rx Instructions: on sundays clopidogrel 75 mg tablet 75 mg PO QAM atorvastatin 80 mg Tablet 80 mg PO BEDTIME cetirizine 10 mg Tablet 10 mg PO DAILY tizanidine 4 mg Tablet 4 mg PO BID PRN (Reason: Spasms) metoprolol succinate 200 mg Tablet Extended Release 24 Hr 100 mg PO DAILY hydroxyzine HCl 50 mg Tablet 50 mg PO BEDTIME fluticasone propionate 50 mcg/actuation [place],Suspension 2 spray INTRANASAL DAILY Rx Instructions: administer into each nostril duloxetine 30 mg Capsule,Delayed Release(Dr/Ec) 30 mg PO BID lactulose 10 gram/15 mL Solution 15 ml PO DAILY PRN (Reason: Constipation) pregabalin 150 mg Capsule 150 mg PO DAILY diclofenac sodium 1 % Gel 2 g TOPICAL QID Rx Instructions: apply to single elbow, wrist or hand; for hand includes palm/fingers/back of hand amlodipine 10 mg tablet 10 mg PO QAM Rx Instructions: Dose change hydralazine 25 mg tablet 25 mg PO TID Qty: 90 0RF Lasix 40 mg tablet 40 mg PO DAILY Qty: 30 0RF Discharge Orders: Discharge ED (Routine); Ordered 10/06/23 Ordered By: Pineda Boswell Referrals: Pam Diaz MD [Primary Care Provider] - Discharge Diet: Usual diet Discharge Activity: Resume usual activity Patient Instructions: Urinary Retention in Men (ED), Hematoma (ED), Opioid Safety Activity Restrictions/Additional Instructions: As we discussed you may want to take a few extra trips to make sure you are emptying your bladder completely. Also a heating pad may feel good on the hematoma on the back. I have prescribed you some Percocet medication for pain. Should not be doubled up with your tramadol. But if typical Tylenol or ibuprofen is not working you can try this instead. Follow-up with your care team such as your primary care and others if the pain continues. Coding Level of Care Code ED Art Psychotherapist for Nirmal Uribe
--- NOTE | 2023-10-06 11:47 | CTR_ITS ---
PROCEDURE INFORMATION: Exam: CT Abdomen And Pelvis With Contrast Exam date and time: 10/06/2023 1:18 PM Age: 63 years old Clinical indication: Other: Recent bone marrow biopsy, severe back pain and swelling TECHNIQUE: Imaging protocol: Computed tomography of the abdomen and pelvis with contrast. Radiation optimization: All CT scans at this facility use at least one of these dose optimization techniques: automated exposure control; mA and/or kV adjustment per patient size (includes targeted exams where dose is matched to clinical indication); or iterative reconstruction. Contrast material: OMNI 350; Contrast volume: 100 ml; Contrast route: INTRAVENOUS (IV); COMPARISON: CT angio chest w abd pel w con 04/25/2023 5:52 PM RADIATION DOSE METRICS: Total DLP (mGy-cm): 892.93 FINDINGS: Lungs: Atelectatic changes in both lung bases. Liver: Normal. No mass. Gallbladder and bile ducts: Normal. No calcified stones. No ductal dilation. Pancreas: Normal. No ductal dilation. Spleen: Normal. No splenomegaly. Adrenal glands: Normal. No mass. Kidneys and ureters: Simple cyst in the interpolar region of the left kidney measuring 1.4 cm. No hydronephrosis on either side. Stomach and bowel: Diverticulosis of the descending colon. Appendix: Post appendectomy. Intraperitoneal space: Unremarkable. No free air. No significant fluid collection. Vasculature: There are vascular calcifications. Lymph nodes: Unremarkable. No enlarged lymph nodes. Urinary bladder: Over distended bladder. Reproductive: Unremarkable as visualized. Bones/joints: Mild curvature of the lumbar spine convex to the left. Mild degenerative disease of the bilateral hip joints, symphysis pubis and sacroiliac joints. Multilevel mild degenerative of the lumbar spine. Right L5 pars defect with mild spondylolisthesis of L5 over S1. Soft tissues: Unremarkable. CT/CT abdomen pelvis w con* [id number] IMPRESSION: 1. [id number] multilevel degenerative of the lumbar spine. 2. No collections or hematomas. No acute fracture. 3. No acute intra-abdominal process. 4. Over distended bladder. COMMENTS: Consistent with the [employer]'s Incidental Findings Committee white paper (J Am Axel Radiol 2018): Any incidental renal lesion less than 1 cm or classified as too small to characterize, or any incidental cystic renal lesion characterized as simple-appearing, is likely benign. No follow-up imaging is recommended for these lesions per consensus recommendations based on imaging criteria.
[2023-10-06 11:59] LABS: Basophils % 0.3 %; Eosinophils # 0.2 10^3/uL (0.0-0.8); Eosinophils % 2.3 %; Hematocrit 31.3 % (37-53); Lymphocytes # 0.9 10^3/uL (0.8-4.8); Lymphocytes % 12.8 %; Mean Corpuscular HGB Conc 34.8 g/dL (30-55); Mean Corpuscular Hemoglobin 32.4 pg (27-33); Mean Corpuscular Volume 93.2 fl (82-101); Monocytes # 0.4 10^3/uL (0.2-0.9); Monocytes % 5.8 %; Neutrophils # 5.44 10^3/uL (1.8-7.7); Neutrophils % 78.4 %; Nucleated Red Blood Cells % 0 %; Platelet Count 268 10^3/cmm (157-399); Red Blood Count 3.36 10^6/uL (3.85-5.65); Red Cell Distribution Width 12.8 % (12.1-15.1); White Blood Count 6.94 10^3/uL (3.29-11.43)
[2023-10-06] MEDS: sodium chloride 0.9% 1,000 ML 999 ML IV (12:00)
[2023-10-06] MEDS: ondansetron 2 mg/ML SDV 2 mL 4 MG IVP (12:18)
[2023-10-06 12:19] LABS: Partial Thromboplastin Time 26.1 SECONDS (23.9-36.7)
[2023-10-06] MEDS: morphine 4 mg/mL SDV 1 mL IVP (12:19)
[2023-10-06 12:43] LABS: Alanine Aminotransferase 24 U/L (0-41); Albumin Level 3.6 g/dL (3.5-5.2); Alkaline Phosphatase 95 U/L (40-130); Anion Gap 14.4 (5-19); Aspartate Amino Transferase 16 U/L (0-40); Blood Urea Nitrogen 32 mg/dL (8-23); Calcium 8.6 mg/dL (8.5-10.5); Carbon Dioxide 22 mmol/L (22-29); Chloride 96 mmol/L (98-107); Globulin 4.8 g/dL (1.3-4.6); Glomerular Filtration Rate 51.2 mL/min (90-130); Glucose 400 mg/dL (65-115); Magnesium 1.7 mg/dL (1.7-2.3); Osmolality Calculated 290 mOsm/kg (285-295); Potassium 4.4 mmol/L (3.5-5.1); Sodium 128 mmol/L (136-145); Total Bilirubin 0.5 mg/dL (0.15-1.2); Total Protein 8.4 g/dL (6.6-8.7)
[2023-10-06] MEDS: HYDROmorphone 1 mg/mL INJ 1 mL 0.5 MG IVP (13:04)
[2023-10-06 13:13] LABS: Creatinine Clr Calc Pharmacy 60.1236
[2023-10-06] MEDS: iohexol 350 mg/mL 500 mL Btl (per mL) IV (13:21)
== END 2023-10-06 15:08 | disposition home or self-care (01) ==
PROVIDERS: Emergency Provider Emergency Medicine; PCP Family Medicine
DX: M54.50 Low back pain, unspecified (principal); R33.9 Retention of urine, unspecified; E11.22 Type 2 diabetes mellitus with diabetic chronic kidney disease; I12.9 Hypertensive chronic kidney disease with stage 1 through stage 4 chronic kidney disease, or unspecified chronic kidney disease; N18.9 Chronic kidney disease, unspecified; Z86.73 Personal history of transient ischemic attack (TIA), and cerebral infarction without residual deficits; E78.5 Hyperlipidemia, unspecified; L76.32 Postprocedural hematoma of skin and subcutaneous tissue following other procedure; Z79.02 Long term (current) use of antithrombotics/antiplatelets; Z79.82 Long term (current) use of aspirin; Z79.85 Long-term (current) use of injectable non-insulin antidiabetic drugs; Z79.4 Long term (current) use of insulin
CPT/HCPCS: 74177; 80053; 83735; 85025; 85610; 85730; 96361; 96374; 96375; 99285; J1170; J2270; J2405; J7030; Q9967

== ENCOUNTER 2023-10-17 16:05 | Emergency (ER) | payer OTHER, SELFPAY ==
[2023-10-17 16:20] VITALS: BP 99/62; PULSE 80; RESP 16; TEMP 36.9; O2SAT 98
[2023-10-17 17:20] LABS: Basophils % 0.4 %; Eosinophils # 0.3 10^3/uL (0.0-0.8); Eosinophils % 5.7 %; Lymphocytes # 1.3 10^3/uL (0.8-4.8); Lymphocytes % 22.8 %; Mean Corpuscular HGB Conc 33.2 g/dL (30-55); Mean Corpuscular Hemoglobin 32.5 pg (27-33); Mean Corpuscular Volume 97.8 fl (82-101); Mean Platelet Volume 10.4 fL (7.4-10.4); Monocytes # 0.3 10^3/uL (0.2-0.9); Neutrophils # 3.66 10^3/uL (1.8-7.7); Neutrophils % 64.6 %; Nucleated Red Blood Cells % 0 %; Platelet Count 240 10^3/cmm (157-399); Red Blood Count 3.17 10^6/uL (3.85-5.65); Red Cell Distribution Width 12.5 % (12.1-15.1); White Blood Count 5.66 10^3/uL (3.29-11.43)
[2023-10-17 17:36] LABS: Alanine Aminotransferase 20 U/L (0-41); Alkaline Phosphatase 86 U/L (40-130); Anion Gap 13.5 (5-19); Aspartate Amino Transferase 13 U/L (0-40); Blood Urea Nitrogen 26 mg/dL (8-23); Calcium 8.7 mg/dL (8.5-10.5); Carbon Dioxide 23 mmol/L (22-29); Chloride 98 mmol/L (98-107); Creatinine Clr Calc Pharmacy 42.0865; Globulin 4.7 g/dL (1.3-4.6); Glomerular Filtration Rate 33.9 mL/min (90-130); Osmolality Calculated 299 mOsm/kg (285-295); Potassium 5.5 mmol/L (3.5-5.1); Sodium 129 mmol/L (136-145); Total Bilirubin 0.2 mg/dL (0.15-1.2); Total Protein 8.7 g/dL (6.6-8.7)
[2023-10-17 17:42] LABS: Glucose 574 mg/dL (65-115)
--- NOTE | 2023-10-17 18:24 | W.ED.RECABL ---
HPI - Recheck/Abnormal Lab/Rx General: Chief Complaint: Recheck/Abnormal Lab/Rx Stated Complaint: right side pain Time Seen by Provider: 10/17/23 18:19 History of Present Illness: 63-year-old man with a history of atrial fibrillation, chronic kidney disease, diabetic peripheral neuropathy, type 2 diabetes mellitus, hyperlipidemia, hypertension who presents to the emergency room at the request of his primary physician for worsening renal function. He says that he been in the hospital for heart failure little over a week ago and then got out to go have a bone marrow biopsy and Wallace. He said after that for a few days he had a hard having bowel movements and urinating. I had drawn some lab work a couple days ago and then told him to come here because his renal function was a little worse. He says he feels great. No weakness. No fevers. No chest pain. No cough. No abdominal pain. He has been urinating okay. He also tells me that after the procedure he had been having some pain and they had done a CT and told him that he had a hematoma after his biopsy. Review of Systems Narrative: Constitutional symptoms: Negative except as documented in HPI. Skin symptoms: Negative except as documented in HPI. Eye symptoms: Negative except as documented in HPI. ENMT symptoms: Negative except as documented in HPI. Respiratory symptoms: Negative except as documented in HPI. Cardiovascular symptoms: Negative except as documented in HPI. Gastrointestinal symptoms: Negative except as documented in HPI. Genitourinary symptoms: Negative except as documented in HPI. Musculoskeletal symptoms: Negative except as documented in HPI. Neurologic symptoms: Negative except as documented in HPI. Psychiatric symptoms: Negative except as documented in HPI. Endocrine symptoms: Negative except as documented in HPI. 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 of other part of right foot limited to breakdown of skin Stroke Lumbar paraspinal muscle spasm Glenohumeral arthritis Lumbar disc disease with radiculopathy residential (current) use of opiate analgesic Pain management contract signed Degenerative lumbar disc Hyperlipidemia Hypertension Diabetes mellitus Surgical History 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 Skin: Warm, dry. Head: Normocephalic, atraumatic. Neck: Supple, trachea midline. Eye: Extraocular movements are intact. Ears, nose, mouth and throat: mucosa moist. Cardiovascular: Regular, Normal peripheral perfusion. Respiratory: Lungs are clear to auscultation, respirations are non-labored, breath sounds are equal, Symmetrical chest wall expansion. Gastrointestinal: Soft, Nontender, Non distended, Normal bowel sounds. Musculoskeletal: Normal ROM, no deformity. Neurological: Alert and oriented, No focal neurological deficit observed. Psychiatric: Cooperative, appropriate mood & affect. Course Vital Signs: Vital signs: Vital Signs Temperature 98.5 F 10/17/23 16:20 Pulse Rate 73 10/17/23 18:30 Respiratory Rate 16 10/17/23 16:20 Blood Pressure 148/80 10/17/23 18:30 Pulse Oximetry 99 10/17/23 18:30 Oxygen Delivery Me thod Room Air 10/17/23 18:30 MDM - Recheck/Abnormal Lab/Rx Medical Decision Making Medical decision making: Differential diagnosis including but not limited to and based on the above HPI, review of systems and physical exam: Patient presents with concern for worsening renal function. A BMP was ordered as well as a CBC. I have also added a urinalysis. Orders placed to evaluate differential diagnosis based on the above differential, HPI and physical exam Lab Review: Laboratory results were reviewed and interpreted by myself the emergency room physician. Patient has normal white count 5.5. Hemoglobin is 10.3. His BUN and creatinine are up a little bit from his baseline at 26 and 2.0. Looks like his baseline usually runs between 1.3 and 1.7. His glucose was quite elevated at 574 on presentation. Fluids and insulin have been ordered. Urinalysis was negative for infection. I reviewed the patient's medical record. Prolonged emergency room stay: Patient was in the waiting room for well over an hour before getting to a room. Then there was a delay in urine collection. Reexamination: Patient remained stable. No altered mental status. He says he feels fine. Glucose at discharge is below 200. I gave a limited amount of fluids because the patient was recently admitted for heart failure. Likely his elevated creatinine is secondary to diuresis for that. Likely will be a continued balancing act. No increased work of breathing. Assessment and plan: Acute on chronic renal insufficiency Dehydration Hyperglycemia ?1 L normal saline bolus. Careful hydration as patient has congestive heart failure and was recently admitted for this. ? 10 units insulin with the initiation of bolus. He is still hyperglycemic after bolus so another 10 units were given. Sugar is now much improved around 180 -We have discussed admission but the patient adamantly wants to go home. - Discharged home - Discussed findings and plan with patient. Answered any questions. - All laboratory values were reviewed and interpreted personally by myself, the ER physician - All imaging was reviewed and interpreted personally by myself, the ER physician. - Evaluation and treatment of this problem were appropriate in the emergency setting Lab Data 10/17/23 17:12 10/17/23 17:12 Laboratory Results WBC 5.66 10^3/uL (3.29-11.43) 10/17/23 17:12 RBC 3.17 10^6/uL (3.85-5.65) L 10/17/23 17:12 Hgb 10.30 g/dL (11.27-16.99) L 10/17/23 17:12 Hct 31.0 % (37-53) L 10/17/23 17:12 MCV 97.8 fl (82-101) 10/17/23 17:12 MCH 32.5 pg (27-33) 10/17/23 17:12 MCHC 33.2 g/dL (30-55) 10/17/23 17:12 RDW 12.5 % (12.1-15.1) 10/17/23 17:12 Plt Count 240 10^3/cmm (157-399) 10/17/23 17:12 MPV 10.4 fL (7.4-10.4) 10/17/23 17:12 Neut % (Auto) 64.6 % 10/17/23 17:12 Lymph % (Auto) 22.8 % 10/17/23 17:12 [place] % (Auto) 6.0 % 10/17/23 17:12 Eos % (Auto) 5.7 % 10/17/23 17:12 Baso % (Auto) 0.4 % 10/17/23 17:12 Neut # (Auto) 3.66 10^3/uL (1.8-7.7) 10/17/23 17:12 Lymph # (Auto) 1.3 10^3/uL (0.8-4.8) 10/17/23 17:12 [place] # (Auto) 0.3 10^3/uL (0.2-0.9) 10/17/23 17:12 Eos # (Auto) 0.3 10^3/uL (0.0-0.8) 10/17/23 17:12 Baso # (Auto) 0.0 10^3/uL (0.0-0.1) 10/17/23 17:12 Nucleated RBC % (auto) 0 % 10/17/23 17:12 Nucleated RBCs # 0.0 /100WBC 10/17/23 17:12 Sodium 129 mmol/L (136-145) L 10/17/23 17:12 Potassium 5.5 mmol/L (3.5-5.1) H 10/17/23 17:12 Chloride 98 mmol/L (98-107) 10/17/23 17:12 Carbon Dioxide 23 mmol/L (22-29) 10/17/23 17:12 Anion Gap 13.5 (5-19) 10/17/23 17:12 BUN 26 mg/dL (8-23) H 10/17/23 17:12 Creatinine 2.0 mg/dL (0.7-1.2) H 10/17/23 17:12 GFR Calculation 33.9 mL/min (90-130) L 10/17/23 17:12 Glucose 574 mg/dL (65-115) H* 10/17/23 17:12 POC Glucose 158 mg/dL (70-110) H 10/17/23 21:08 Calculated Osmolality 299 mOsm/kg (285-295) H 10/17/23 17:12 Calcium 8.7 mg/dL (8.5-10.5) 10/17/23 17:12 Total Bilirubin 0.2 mg/dL (0.15-1.2) 10/17/23 17:12 AST 13 U/L (0-40) 10/17/23 17:12 ALT 20 U/L (0-41) 10/17/23 17:12 Alkaline Phosphatase 86 U/L (40-130) 10/17/23 17:12 Total Protein 8.7 g/dL (6.6-8.7) 10/17/23 17:12 Albumin 4.0 g/dL (3.5-5.2) 10/17/23 17:12 Globulin 4.7 g/dL (1.3-4.6) H 10/17/23 17:12 Urine Color Yellow (Yellow) 10/17/23 20:05 Urine Appearance Clear (CLEAR) 10/17/23 20:05 Urine pH 7 (5-7) 10/17/23 20:05 Ur Specific [place] 1.005 (1.005-1.030) 10/17/23 20:05 Urine Protein 1+ (Negative) H 10/17/23 20:05 Urine Glucose (UA) 4+ (Normal) H 10/17/23 20:05 Urine Ketones Negative (Negative) 10/17/23 20:05 Urine Blood Neg (Negative) 10/17/23 20:05 Urine Nitrate Negative (Negative) 10/17/23 20:05 Urine Bilirubin Neg (Negative) 10/17/23 20:05 Urine Urobilinogen Neg mg/dL (Negative) 10/17/23 20:05 Ur Leukocyte Esterase Negative (Negative) 10/17/23 20:05 Urine RBC 0-4 /hpf (0-2) H 10/17/23 20:05 Urine WBC None /hpf (0-5) 10/17/23 20:05 Ur Squamous Epith Cells None /hpf (0-5) 10/17/23 20:05 Amorphous Sediment Not Reportable 10/17/23 20:05 Urine Bacteria Trace /hpf (NONE) 10/17/23 20:05 Urine Mucus 1+ /hpf 10/17/23 20:05 No radiology studies performed this visit Discharge Plan Discharge Patient Disposition: Home Clinical Impression: Acute on chronic renal insufficiency, Hyperglycemia, Dehydration Condition: Stable Prescriptions: No Action ([facility] Diabetic Shoes with 3 sets of inserts See Rx Instructions .ROUTE .MEDSUPPLY Qty: 1 0RF Rx Instructions: As directed ([facility] Walker See Rx Instructions .Route .MEDSUPPLY Qty: 1 0RF Rx Instructions: As directed ([facility] carbon fiber [place] bilaterally- AFO See Rx Instructions .Route .MEDSUPPLY Qty: 1 0RF Rx Instructions: As directed by QUEENIE&Laura ([facility] AFO to right See Rx Instructions .Route .MEDSUPPLY Qty: 1 0RF Rx Instructions: As directed by QUEENIE[employer]Laura ([facility] extra depth shoe with custom molded accommodative insoles See Rx Instructions .Route .MEDSUPPLY Qty: 1 0RF Rx Instructions: As directed made by the shoe guaaron ([facility]) Compression stockings See Rx Instructions .Route .MEDSUPPLY Qty: 3 0RF Rx Instructions: As directed by CT triamcinolone acetonide 0.1 % cream 1 applic topical BID Qty: 30 2RF ([facility] Custom Molded Accomodative Orthotics and Diabetic Shoes See Rx Instructions .Route .MEDSUPPLY Qty: 1 0RF Rx Instructions: As directed, custom made by [employer]EN[employer]aura ([facility]) Bedside commode See Rx Instructions .Route .MEDSUPPLY Qty: 1 0RF Rx Instructions: As directed BY HOME ([facility]) Shower chair See Rx Instructions .Route .MEDSUPPLY Qty: 1 0RF Rx Instructions: As directed by HOME ([facility]) Wheelchair with elevated foot rest See Rx Instructions .Route .MEDSUPPLY Qty: 1 0RF Rx Instructions: As directed by HOME polyethylene glycol 3350 [Miralax] 17 gram Powder In Packet 17 g PO DAILY cholecalciferol (vitamin D3) 25 mcg (1,000 unit) Tablet 50 mcg PO QAM aspirin [[place] Low Dose Aspirin] 81 mg Tablet,Delayed Release (Dr/Ec) 81 mg PO QAM 30 Days Qty: 30 3RF ([facility] blood pressure monitor [Blood Pressure Kit] Kit See Rx Instructions .Route Qty: 1 0RF Rx Instructions: As directed pantoprazole 40 mg tablet,delayed release (DR/EC) 40 mg PO BID tramadol 50 mg tablet 50 mg PO .Q4-6H PRN (Reason: pain) B complex-vitamin C-folic acid 1 mg Tablet 1 tab PO DAILY omega-3 fatty acids 1,000 mg Capsule 2,000 mg PO BID carboxymethylcellulose sodium 0.5 % Drops 2 drp ophthalmic (eye) TID PRN (Reason: redness) lidocaine 5 % Adhesive Patch,Medicated 1 patch topical DAILY PRN (Reason: Pain) Rx Instructions: on for 12 hours off for 12 hours glucose 4 gram Tablet,Chewable 4 g PO Q15M PRN (Reason: for low blood sugar) Rx Instructions: until symptoms of low blood sugar are controlled docusate sodium [Colace] 100 mg Capsule 200 mg PO BID insulin aspart U-100 100 unit/mL (3 mL) Insulin Pen 4 unit SUBCUT TID tadalafil 20 mg Tablet 20 mg PO DAILY PRN (Reason: Erectile Dysfunction) Rx Instructions: administer approximately 30min before sexual activity; do not use more than 1 dose per 24hrs semaglutide 1 mg/dose (2 mg/1.5 mL) Pen Injector 1 mg SUBCUT Q7D Rx Instructions: on sundays clopidogrel 75 mg tablet 75 mg PO QAM atorvastatin 80 mg Tablet 80 mg PO BEDTIME cetirizine 10 mg Tablet 10 mg PO DAILY tizanidine 4 mg Tablet 4 mg PO BID PRN (Reason: Spasms) metoprolol succinate 200 mg Tablet Extended Release 24 Hr 100 mg PO DAILY hydroxyzine HCl 50 mg Tablet 50 mg PO BEDTIME fluticasone propionate 50 mcg/actuation [place],Suspension 2 spray INTRANASAL DAILY Rx Instructions: administer into each nostril duloxetine 30 mg Capsule,Delayed Release(Dr/Ec) 30 mg PO BID lactulose 10 gram/15 mL Solution 15 ml PO DAILY PRN (Reason: Constipation) pregabalin 150 mg Capsule 150 mg PO DAILY diclofenac sodium 1 % Gel 2 g TOPICAL QID Rx Instructions: apply to single elbow, wrist or hand; for hand includes palm/fingers/back of hand amlodipine 10 mg tablet 10 mg PO QAM Rx Instructions: Dose change hydralazine 25 mg tablet 25 mg PO TID Qty: 90 0RF Lasix 40 mg tablet 40 mg PO DAILY Qty: 30 0RF Discharge Orders: Discharge ED (Routine); Ordered 10/17/23 Ordered By: Maddy L Britt Referrals: Pam Diaz MD [Primary Care Provider] - 1-3 days Patient Instructions: Opioid Safety, Pain Management Activity Restrictions/Additional Instructions: Please increased your fluid intake over the next few days. Thank you for choosing [facility] for your healthcare needs today. Please realize this is an emergency room and that we are providing you with a medical screening exam and this may not be complete and all inclusive of all the testing and or work up that you may need to determine your ailment or severity of your illness. You have been screened and evaluated and felt safe for discharge. Health conditions do change or evolve sometimes and as such it is important that you follow up with your Primary Doctor to be re checked, 3-5 days is a general good time frame for follow up. You are always welcome to return to the ED for re assessment if your symptoms are worsening or you have new concerns Coding Level of Care Code ED Tube Lancer for Nirmal Uribe
[2023-10-17 18:30] VITALS: BP 148/80; PULSE 73; O2SAT 99
[2023-10-17] MEDS: insulin regular-human 100 units/1 mL 10 UNIT IVP ×2 (18:35→20:01)
[2023-10-17] MEDS: sodium chloride 0.9% 1,000 ML 999 ML IV (18:37)
[2023-10-17 19:11] LABS: Glucose Point of Care 414 mg/dL (70-110)
[2023-10-17 20:46] LABS: Bilirubin Urine Neg (Negative); Blood Urine Neg (Negative); Glucose Urine UA 4+ (Normal); Ketones Urine Negative (Negative); Leukocyte Esterase Urine Negative (Negative); Nitrate Urine Negative (Negative); Protein Urine 1+ (Negative); Specific Gravity, Urine 1.005 (1.005-1.030); Urine Appearance Clear (CLEAR); Urine Color Yellow (Yellow); Urobilinogen Urine Neg (Negative); pH Urine 7 (5-7)
[2023-10-17 20:47] LABS: Add Urine Culture? No; Bacteria Urine TRACE /hpf; Mucus Urine 1+ /hpf; RBC Urine 0-4 /hpf (0-2)
[2023-10-17 21:00] VITALS: BP 140/75; PULSE 82; RESP 18; O2SAT 99
[2023-10-17 21:12] LABS: Glucose Point of Care 158 mg/dL (70-110)
== END 2023-10-17 21:30 | disposition home or self-care (01) ==
PROVIDERS: Emergency Medicine; Emergency Provider Emergency Medicine; PCP Family Medicine
DX: E11.22 Type 2 diabetes mellitus with diabetic chronic kidney disease (principal); I12.9 Hypertensive chronic kidney disease with stage 1 through stage 4 chronic kidney disease, or unspecified chronic kidney disease; N18.9 Chronic kidney disease, unspecified; E11.65 Type 2 diabetes mellitus with hyperglycemia; E86.0 Dehydration; Z86.73 Personal history of transient ischemic attack (TIA), and cerebral infarction without residual deficits; E78.5 Hyperlipidemia, unspecified; Z79.82 Long term (current) use of aspirin; Z79.4 Long term (current) use of insulin; Z79.85 Long-term (current) use of injectable non-insulin antidiabetic drugs; Z79.02 Long term (current) use of antithrombotics/antiplatelets
CPT/HCPCS: 36415; 36416; 80053; 81001; 82962; 85025; 96361; 96374; 96376; 99284; J1815; J7030

== ENCOUNTER 2023-10-29 12:33 | Outpatient (CLI) | payer OTHER, SELFPAY ==
--- NOTE | 2023-10-29 12:30 | PETR_ITS ---
PROCEDURE INFORMATION: Exam: PET/CT Whole Body Exam date and time: 10/29/2023 12:55 PM Age: 63 years old Clinical indication: Condition or disease; Primary cancer: Multiple myeloma having not achieved remission; Initial oncological staging assessment LABS AND CLINICAL REPORTS: Glucose: 128 mg/dl Treatment strategy for malignancy (PET staging): Initial Staging (PI) TECHNIQUE: Imaging protocol: Following at least four-hour fasting and following the injection of radiopharmaceutical, low dose CT images were obtained. Then, PET images were obtained. Attenuation corrected images were constructed using the CT scan. Fused images of PET and CT were reviewed. The standardized uptake values (SUV) reported below are maximum values within a region of interest, expressed in gm/ml. Exam includes the whole body. Radiopharmaceutical: 13.1 mCi F-18 FDG (Fluorodeoxyglucose), IV. Time of imaging post radiopharmaceutical administration: 1 hour Injection site: Right wrist COMPARISON: CT abdomen pelvis w con* [id number] 10/06/2023 1:18 PM, CT chest 09/25/2023, x-ray bone survey 07/26/2023, CTA head and CTA neck 12/19/2022 FINDINGS: Brain: Visualized brain has normal physiologic uptake. Pharynx: Mild, likely inflammatory uptake in the region of the bilateral palatine tonsils is noted without correlating lesions on the CT images. Larynx: No abnormal uptake. Lungs, pleura and trachea: No abnormal uptake. Heart: Normal physiologic uptake. Mediastinal space: No abnormal uptake. Liver: No abnormal uptake. Gallbladder and bile ducts: No abnormal uptake. Pancreas: No abnormal uptake. Spleen: No abnormal uptake. Adrenal glands: No abnormal uptake. Kidneys and ureters: Normal physiologic uptake. Stomach and bowel: A surgical staple line in the region of the cecum is likely related to appendectomy. There is physiologic or inflammatory appearing uptake within the rectum, SUV max 4.6 Urinary bladder: Mild wall thickening of the urinary bladder appears diffuse. Assessment of the wall is limited by PET-CT. No discrete mass appears to be present. Vasculature: No abnormal uptake. There are diffuse atherosclerotic changes including within the coronary arteries. Lymph nodes: No abnormal uptake. No lymphadenopathy in the head, neck, chest, abdomen, pelvis, and extremities. Skeleton: No abnormal uptake in the visualized axial and appendicular skeleton. Degenerative changes within the spine are noted. A healed fracture of the proximal right fibular shaft is noted. A non radiotracer avid 5-6 mm rounded sclerotic density in the right femoral neck is consistent with a benign bone island on image 256. Additional benign-appearing bone islands are noted in the left iliac bone, left femoral head, humeral head and base of the right glenoid. Benign-appearing subcortical cystic changes are noted within the bilateral greater tuberosities Mild benign-appearing subcortical cystic changes at the left anterior superior femoral head/neck junction are noted. No acute fracture. Soft tissues: Asymmetric uptake within a thickened Achilles tendon on the right is noted, SUV max 3.0. METRICS: Mediastinal blood pool: SUV max 2.2 PET/PET WB melanoma INITIAL [id number] IMPRESSION: 1. No evidence of radiotracer avid malignancy. 2. No definitive evidence of osseous lesions related to the history of multiple myeloma. 3. A mildly thick-walled appearance of the urinary bladder is noted which may be related to incomplete distension or cystitis. A malignant etiology is not favored. 4. Abnormal uptake within a thickened right Achilles tendon is noted and is likely related to inflammatory changes/tendinosis. MRI of the ankle may be useful for more definitive assessment as clinically indicated. 5. Additional nonurgent findings as detailed above.
== END 2023-10-29 12:34 | disposition home or self-care (01) ==
LOC: RAD 12:33
PROVIDERS: PCP Family Medicine; Visit Provider Internal Medicine Medical Oncology
DX: C90.00 Multiple myeloma not having achieved remission (principal); N32.89 Other specified disorders of bladder; R93.6 Abnormal findings on diagnostic imaging of limbs; M47.819 Spondylosis without myelopathy or radiculopathy, site unspecified; M85.69 Other cyst of bone, multiple sites
CPT/HCPCS: 78816; A9552

== ENCOUNTER 2023-11-11 10:46 | Oncology outpatient (recurring) (ONCR) | payer OTHER, SELFPAY | END 2023-12-11 23:59 | disposition home or self-care (01) | PROVIDERS: PCP Family Medicine; Visit Provider Internal Medicine Medical Oncology | DX: C90.00 Multiple myeloma not having achieved remission (principal) | CPT/HCPCS: 99215 ==

== ENCOUNTER → 2023-11-20 08:36 | Outpatient (BNVA) | payer OTHER, SELFPAY | PROVIDERS: PCP Family Medicine; Referring Provider Family Medicine; Visit Provider Specialist | DX: L03.113 Cellulitis of right upper limb (principal); I11.0 Hypertensive heart disease with heart failure; M19.021 Primary osteoarthritis, right elbow; I50.32 Chronic diastolic (congestive) heart failure; Z86.79 Personal history of other diseases of the circulatory system | CPT/HCPCS: 20600; 20605; 73080; 99204; 99214; J1100; J2795; J3301 ==

== ENCOUNTER 2023-12-12 06:59 | Outpatient (CLI) | payer OTHER, SELFPAY ==
[2023-12-12 07:27] LABS: Basophils % 0.8 %; Eosinophils # 0.2 10^3/uL (0.0-0.8); Eosinophils % 5.8 %; Lymphocytes # 1.2 10^3/uL (0.8-4.8); Mean Corpuscular HGB Conc 33.4 g/dL (30-55); Mean Corpuscular Hemoglobin 33.1 pg (27-33); Mean Corpuscular Volume 98.9 fl (82-101); Mean Platelet Volume 9.9 fL (7.4-10.4); Monocytes # 0.3 10^3/uL (0.2-0.9); Monocytes % 9.1 %; Neutrophils # 1.88 10^3/uL (1.8-7.7); Nucleated Red Blood Cells % 0 %; Platelet Count 249 10^3/cmm (157-399); Red Blood Count 3.54 10^6/uL (3.85-5.65); Red Cell Distribution Width 13.5 % (12.1-15.1); White Blood Count 3.62 10^3/uL (3.29-11.43)
[2023-12-12 07:50] LABS: Albumin Level 3.9 g/dL (3.5-5.2); Anion Gap 12.5 (5-19); Blood Urea Nitrogen 30 mg/dL (8-23); Calcium 9.1 mg/dL (8.5-10.5); Carbon Dioxide 24 mmol/L (22-29); Chloride 106 mmol/L (98-107); Glomerular Filtration Rate 40.9 mL/min (90-130); Glucose 113 mg/dL (65-115); Phosphorus 3.8 mg/dL (2.5-4.5); Potassium 4.5 mmol/L (3.5-5.1); Sodium 138 mmol/L (136-145)
[2023-12-12 07:51] LABS: Urine Creatinine 93 mg/dL (39-259)
[2023-12-12 07:52] LABS: Calcium 9.1 mg/dL (8.5-10.5); Creatinine Urine, Random 95 mg/dL (39-259)
[2023-12-12 07:57] LABS: Parathyroid Hormone 42.2 pg/mL (15-65)
[2023-12-12 08:02] LABS: UPRO/UCREAT Ratio 1.24 mg/mg CR; Urine Protein Random 115 mg/dL
[2023-12-12 08:06] LABS: Microalbum Creatinine Ratio Ur 758 mg/dL (0-20); Microalbumin Random Urine 72 ug/dL (0-20)
== END 2023-12-12 07:00 | disposition home or self-care (01) ==
PROVIDERS: PCP Family Medicine; Visit Provider Registered Nurse
DX: N18.32 Chronic kidney disease, stage 3b (principal)
CPT/HCPCS: 36415; 80069; 82044; 82310; 82570; 83970; 84156; 85025

== ENCOUNTER → 2023-12-24 06:46 | Outpatient (BNVA) | payer OTHER, SELFPAY | PROVIDERS: PCP Family Medicine; Visit Provider Podiatrist Foot & Ankle Surgery | DX: E11.42 Type 2 diabetes mellitus with diabetic polyneuropathy (principal); I73.9 Peripheral vascular disease, unspecified; Z79.4 Long term (current) use of insulin | CPT/HCPCS: 99213 ==

== ENCOUNTER 2023-12-26 11:14 | Oncology outpatient (recurring) (ONCR) | payer OTHER, SELFPAY ==
[2023-12-19 08:38] LABS: Basophils % 0.5 %; Eosinophils # 0.3 10^3/uL (0.0-0.8); Eosinophils % 6.1 %; Hematocrit 31.5 % (37-53); Lymphocytes # 0.9 10^3/uL (0.8-4.8); Lymphocytes % 19.9 %; Mean Corpuscular HGB Conc 34.3 g/dL (30-55); Mean Corpuscular Hemoglobin 33.1 pg (27-33); Mean Corpuscular Volume 96.6 fl (82-101); Monocytes # 0.4 10^3/uL (0.2-0.9); Monocytes % 8.7 %; Neutrophils # 2.73 10^3/uL (1.8-7.7); Neutrophils % 63.9 %; Nucleated Red Blood Cells % 0 %; Platelet Count 204 10^3/cmm (157-399); Red Blood Count 3.26 10^6/uL (3.85-5.65); Red Cell Distribution Width 13.4 % (12.1-15.1); White Blood Count 4.27 10^3/uL (3.29-11.43)
[2023-12-19 09:01] LABS: Alanine Aminotransferase 21 U/L (0-41); Albumin Level 3.6 g/dL (3.5-5.2); Alkaline Phosphatase 84 U/L (40-130); Anion Gap 12.1 (5-19); Aspartate Amino Transferase 17 U/L (0-40); Blood Urea Nitrogen 32 mg/dL (8-23); Calcium 8.7 mg/dL (8.5-10.5); Carbon Dioxide 21 mmol/L (22-29); Chloride 102 mmol/L (98-107); Creatinine Clr Calc Pharmacy 54.4727; Globulin 4.6 g/dL (1.3-4.6); Glomerular Filtration Rate 43.9 mL/min (90-130); Glucose 375 mg/dL (65-115); Immunoglobulin IGA 64 mg/dL (70-400); Immunoglobulin IGG 3148 mg/dL (700-1600); Immunoglobulin IGM 42 mg/dL (40-230); Osmolality Calculated 292 mOsm/kg (285-295); Potassium 5.1 mmol/L (3.5-5.1); Sodium 130 mmol/L (136-145); Total Bilirubin 0.2 mg/dL (0.15-1.2); Total Protein 8.2 g/dL (6.6-8.7)
[2023-12-23 11:09] LABS: KAPPA LIGHT CHAIN, FREE, SERUM 35.2 mg/L (3.3-19.4); KAPPA/LAMBDA LIGHT CHAINS FREE 1.81 (0.26-1.65); LAMBDA LIGHT CHAIN, FREE, SERU 19.5 mg/L (5.7-26.3)
[2023-12-25 01:29] LABS: PROTEIN, TOTAL 7.9 g/dL (6.1-8.1)
[2023-12-25 15:15] LABS: ABNORMAL PROTEIN BAND 1 2.1 g/dL (NONE DETECTED); ALBUMIN 3.8 g/dL (3.8-4.8); ALPHA 1 GLOBULIN 0.3 g/dL (0.2-0.3); ALPHA 2 GLOBULIN 0.8 g/dL (0.5-0.9); BETA 1 GLOBULIN 0.3 g/dL (0.4-0.6); BETA 2 GLOBULIN 0.3 g/dL (0.2-0.5); GAMMA GLOBULIN 2.4 g/dL (0.8-1.7)
== END 2024-01-11 23:59 | disposition home or self-care (01) ==
PROVIDERS: PCP Family Medicine; Visit Provider Internal Medicine Medical Oncology
DX: C90.00 Multiple myeloma not having achieved remission (principal); D64.9 Anemia, unspecified
CPT/HCPCS: 36415; 80053; 82784; 83883; 84155; 84165; 85025; 86850; 86900; 99214

== ENCOUNTER → 2024-02-20 08:19 | Outpatient (BNVA) | payer OTHER, SELFPAY | PROVIDERS: PCP Family Medicine; Visit Provider Podiatrist Foot & Ankle Surgery | DX: M79.671 Pain in right foot (principal); M79.672 Pain in left foot; E11.42 Type 2 diabetes mellitus with diabetic polyneuropathy; I73.9 Peripheral vascular disease, unspecified; Z89.421 Acquired absence of other right toe(s); Q66.71 Congenital pes cavus, right foot; Q66.72 Congenital pes cavus, left foot; Z79.4 Long term (current) use of insulin | CPT/HCPCS: 73630; 99213 ==

== ENCOUNTER → 2024-03-24 06:50 | Outpatient (BNVA) | payer OTHER, SELFPAY | PROVIDERS: PCP Family Medicine; Visit Provider Podiatrist Foot & Ankle Surgery | DX: E11.42 Type 2 diabetes mellitus with diabetic polyneuropathy (principal); I73.9 Peripheral vascular disease, unspecified; Z89.421 Acquired absence of other right toe(s); Q66.71 Congenital pes cavus, right foot; Q66.72 Congenital pes cavus, left foot; Z79.4 Long term (current) use of insulin | CPT/HCPCS: 99213 ==

== ENCOUNTER 2024-04-06 11:27 | Outpatient (CLI) | payer OTHER, SELFPAY ==
[2024-04-06 12:16] LABS: Basophils % 0.5 %; Eosinophils # 0.3 10^3/uL (0.0-0.8); Eosinophils % 7.9 %; Lymphocytes # 1.2 10^3/uL (0.8-4.8); Lymphocytes % 29.5 %; Mean Corpuscular HGB Conc 34.1 g/dL (30-55); Mean Corpuscular Hemoglobin 32.5 pg (27-33); Mean Corpuscular Volume 95.1 fl (82-101); Mean Platelet Volume 10.1 fL (7.4-10.4); Monocytes # 0.4 10^3/uL (0.2-0.9); Monocytes % 10.5 %; Neutrophils % 51.3 %; Nucleated Red Blood Cells % 0 %; Platelet Count 209 10^3/cmm (157-399); Red Blood Count 3.05 10^6/uL (3.85-5.65); Red Cell Distribution Width 12.6 % (12.1-15.1)
[2024-04-06 12:40] LABS: Creatinine Urine, Random 56 mg/dL (39-259); Microalbumin Random Urine 6 ug/dL (0-20)
[2024-04-06 12:41] LABS: Microalbum Creatinine Ratio Ur 107 mg/dL (0-20)
[2024-04-06 12:41] LABS: Anion Gap 11.8 (5-19); Blood Urea Nitrogen 36 mg/dL (8-23); Calcium 9.2 mg/dL (8.5-10.5); Carbon Dioxide 22 mmol/L (22-29); Chloride 100 mmol/L (98-107); Glomerular Filtration Rate 33.9 mL/min (90-130); Glucose 121 mg/dL (65-115); Phosphorus 4.3 mg/dL (2.5-4.5); Potassium 4.8 mmol/L (3.5-5.1); Sodium 129 mmol/L (136-145)
[2024-04-06 12:42] LABS: Calcium 9.1 mg/dL (8.5-10.5)
== END 2024-04-06 11:28 | disposition home or self-care (01) ==
LOC: LAB 11:38
PROVIDERS: PCP Family Medicine; Visit Provider Internal Medicine Nephrology
DX: N18.32 Chronic kidney disease, stage 3b (principal)
CPT/HCPCS: 36415; 80069; 82044; 82310; 83970; 85025

== ENCOUNTER 2024-04-15 14:51 | Outpatient (CLI) | payer OTHER, SELFPAY ==
--- NOTE | 2024-04-15 14:54 | MR_ITS ---
WS: [id number] MRI RIGHT KNEE HISTORY: R KNEE PAIN COMPARISON: Radiograph 03/30/2024 Anterior cruciate ligament: Intact. Posterior cruciate ligament: Intact. Medial collateral ligament: Very small amount of fluid adjacent to the medial collateral ligament but there is no tear. Posterior lateral corner structures: Intact. Medial menisci: Mild intrasubstance degeneration in the posterior horn. No meniscal tear. Lateral meniscus: Intact. Normal signal, size and shape. Extensor mechanism: Distal quadriceps tendon and patellar tendons are intact. Fluid and soft tissue: Small suprapatellar joint effusion. No Worley's cyst. Osseous and articular structures: Patellofemoral compartment: Very mild thinning of the cartilage over the medial patellar eminence. No marrow edema. Mild narrowing of the lateral patellofemoral joint space. Patellar eminence 4 mm subch ondral edema. Medial compartment: Very mild narrowing of the medial compartment. Mild fissuring and thinning of the cartilage. Greatest area of thinning is along the weightbearing surface of the femoral condyle towar ds the intercondylar notch. No full-thickness defect. Lateral compartment: Mild joint space narrowing with thinning and fissuring of the cartilage. No sb ow edema. MR/MR knee RT wo con* [id number] IMPRESSION: 1. No ACL or meniscal tear. 2. Mild narrowing of the lateral patellofemoral joint space. 3. Focal 4 mm subchondral edema at the patellar eminence. 4. Mild chondromalacia over the medial patellar eminence. 5. Minimal MCL sprain. 6. Mild narrowing of the medial compartment with mild chondromalacia. 7. Mild narrowing of the lateral compartment with mild chondromalacia.
== END 2024-04-15 14:52 | disposition home or self-care (01) ==
LOC: RAD 14:52
PROVIDERS: PCP Family Medicine; Visit Provider Family Medicine
DX: M22.41 Chondromalacia patellae, right knee (principal); S83.411A Sprain of medial collateral ligament of right knee, initial encounter; X58.XXXA Exposure to other specified factors, initial encounter
CPT/HCPCS: 73721

== ENCOUNTER → 2024-04-16 08:05 | Outpatient (BNVA) | payer OTHER, SELFPAY | PROVIDERS: PCP Family Medicine; Referring Provider Family Medicine; Visit Provider Specialist | DX: M25.561 Pain in right knee (principal); M17.11 Unilateral primary osteoarthritis, right knee; S83.91XA Sprain of unspecified site of right knee, initial encounter; V89.2XXA Person injured in unspecified motor-vehicle accident, traffic, initial encounter | CPT/HCPCS: 20610; 73560; 73565; 99215; J1100; J2795; J3301 ==

== ENCOUNTER → 2024-04-22 06:53 | Outpatient (BNVA) | payer OTHER, SELFPAY | PROVIDERS: PCP Family Medicine; Visit Provider Podiatrist Foot & Ankle Surgery | DX: E11.42 Type 2 diabetes mellitus with diabetic polyneuropathy (principal); I73.9 Peripheral vascular disease, unspecified; Z89.421 Acquired absence of other right toe(s); Q66.71 Congenital pes cavus, right foot; Q66.72 Congenital pes cavus, left foot; L60.3 Nail dystrophy; Z79.4 Long term (current) use of insulin | CPT/HCPCS: 99213 ==

== ENCOUNTER 2024-05-01 08:25 | Outpatient (RCR) | payer OTHER, SELFPAY | END 2024-05-12 23:59 | disposition home or self-care (01) | LOC: SPT 08:25 | PROVIDERS: PCP Family Medicine; Visit Provider Specialist | DX: M25.561 Pain in right knee (principal) | CPT/HCPCS: 97110; 97162 ==

== ENCOUNTER 2024-05-13 06:00 | Outpatient (RCR) | payer OTHER, SELFPAY | END 2024-06-12 23:59 | disposition home or self-care (01) | LOC: SPT 06:00 | PROVIDERS: PCP Family Medicine; Visit Provider Specialist | DX: M25.561 Pain in right knee (principal) | CPT/HCPCS: 97110 ==

== ENCOUNTER → 2024-05-21 14:30 | Outpatient (BNVA) | payer OTHER, SELFPAY | PROVIDERS: PCP Family Medicine; Visit Provider Internal Medicine | DX: R06.02 Shortness of breath (principal); I10 Essential (primary) hypertension; E78.2 Mixed hyperlipidemia; M51.16 Intervertebral disc disorders with radiculopathy, lumbar region; E11.69 Type 2 diabetes mellitus with other specified complication; Z79.4 Long term (current) use of insulin; I48.91 Unspecified atrial fibrillation; Z86.73 Personal history of transient ischemic attack (TIA), and cerebral infarction without residual deficits; Z79.01 Long term (current) use of anticoagulants | CPT/HCPCS: 99214 ==

== ENCOUNTER → 2024-06-09 06:56 | Outpatient (BNVA) | payer OTHER, SELFPAY | PROVIDERS: PCP Family Medicine; Visit Provider Podiatrist Foot & Ankle Surgery | DX: E11.42 Type 2 diabetes mellitus with diabetic polyneuropathy (principal); I73.9 Peripheral vascular disease, unspecified; Z89.421 Acquired absence of other right toe(s); Q66.71 Congenital pes cavus, right foot; Q66.72 Congenital pes cavus, left foot; L60.3 Nail dystrophy | CPT/HCPCS: 99213 ==

== ENCOUNTER 2024-06-13 06:00 | Outpatient (RCR) | payer OTHER, SELFPAY | END 2024-07-10 23:59 | disposition home or self-care (01) | LOC: SPT 06:00 | PROVIDERS: PCP Family Medicine; Visit Provider Specialist | DX: M25.561 Pain in right knee (principal) | CPT/HCPCS: 97110 ==

== ENCOUNTER 2024-06-22 12:50 | Observation (INO) | payer OTHER, SELFPAY ==
[2024-06-22] VITALS (11 sets, daily range): BP systolic 95–149; BP diastolic 60–94; PULSE 69–74; RESP 16–24; TEMP 36.4–36.8; O2SAT 94–99; BMI 32.0; BMI 31.7
--- NOTE | 2024-06-22 12:52 | XR_ITS ---
WS: [id number] PORTABLE CHEST HISTORY: hypotension COMPARISON: 09/25/2023 Low lung volumes. No pneumonia. Normal pulmonary vasculature. No pleural effusion or pneumothorax. Cardiac size: Normal. Mediastinum/Aorta: Normal mediastinum. No osseous abnormality seen. XR/XR chest 1V portable [id number] IMPRESSION: Unremarkable portable chest.
--- NOTE | 2024-06-22 12:53 | ECG_ITS ---
[facility] Date: 2024-06-22 Pat Name: Wayne Aguilar Department: Room: Gender: Male Grey Washer: : 1960 Requested By: Sakshi Henderson Order Number: [id number] Bhumi MD: Abdirizak Brewer M.D. Measurements Intervals [place] Rate: 69 P: 31 WV: 230 QRS: -16 QRSD: 108 T: 12 QT: 398 QTc: 429 Interpretive Statements SINUS RHYTHM WITH FIRST DEGREE AV BLOCK Compared to ECG 09/25/2023 16:38:47 First degree AV block now present Electronically Signed On 06-24-2024 17:51:24 MEAT SCRUBBER by Abdirizak Brewer M.D. [email or web address]
--- NOTE | 2024-06-22 13:57 | W.ED.WEAKNES ---
HPI - Weakness General: Chief complaint: ER Hold Stated complaint: b/p 88/53 (va reffered), Time Seen by Provider: 06/22/24 13:37 History of Present Illness: 63-year-old male presents to the emergency room with complaints of hypotension and some shortness of breath and abdominal discomfort. He was at [facility] walking around got lightheaded and dizzy had the above complaints. He is not having any chest pain at this time he denies any fever sweats or chills. 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 of other part of right foot limited to breakdown of skin Stroke Lumbar paraspinal muscle spasm Glenohumeral arthritis Lumbar disc disease with radiculopathy 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 Pain management contract signed Degenerative lumbar disc Hyperlipidemia Hypertension Diabetes mellitus Surgical History 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 S/P dialysis catheter insertion Hx of appendectomy Hx of foot surgery Hx of cholecystectomy Family History Son Acute leukemia Denies family history of Anesthesia complication Social History Smoking and tobacco/nicotine status: never used tobacco/nicotine Alcohol intake: never Substance/Drug Use: never Caregiver/support person: Yes Lives independently: Yes Physical Exam Const: COMMON NORMALS: no acute distress GENERAL APPEARANCE: cooperative and comfortable ORIENTATION/CONSCIOUSNESS: Yes awake, Yes oriented to person, Yes oriented to place and Yes oriented to time HENMT: COMMON NORMALS: normocephalic, atraumatic and hearing grossly normal bilaterally HEAD & SCALP: normocephalic and atraumatic Resp: COMMON NORMALS: normal respiratory effort, No retractions, No use of accessory muscles and clear to auscultation bilaterally AUSCULTATION: clear to auscultation bilaterally Cardio: COMMON NORMALS: regular rate, regular rhythm and No murmurs present (Cardio) RATE: regular rate RHYTHM: regular rhythm GI: COMMON NORMALS: Soft to palpation and No hepatosplenomegaly present AUSCULTATION: Yes normoactive bowel sounds PALPATION: Yes Soft to palpation, No Tenderness to palpation present (GI), No Guarding due to palpation present (GI) and Yes No hepatosplenomegaly present Extremity: COMMON NORMALS: normal to inspection, capillary refill normal, no clubbing, cyanosis or edema, no calf tenderness and no pedal edema Neuro: SENSORIUM/ORIENTATION: Yes oriented to person, Yes oriented to place and Yes oriented to time Skin: COMMON NORMALS: no rashes or lesions noted GENERAL SKIN EXAM: no rashes or lesions noted Course Vital Signs: Vital signs: Vital Signs Temperature 97.5 F L 06/22/24 13:06 Pulse Rate 70 06/22/24 15:30 Blood Pressure 147/83 06/22/24 15:30 Pulse Oximetry 99 06/22/24 15:30 Oxygen Delivery Me thod Room Air 06/22/24 16:05 MDM - Weakness Medical Decision Making Mild acute kidney injury with hyponatremia symptomatic. [place] [facility] patient observation IV fluids reevaluate discussed with hospitalist orders written Medical Records I reviewed the patient's medical records. Lab Data I reviewed the patient's lab results. 06/22/24 13:29 06/22/24 13:29 Radiology Impressions Chest X-Ray 06/22/24 12:52 IMPRESSION: Unremarkable portable chest. Abdomen/Pelvis CT 06/22/24 15:01 IMPRESSION: No acute findings. Laboratory Results WBC 5.49 10^3/uL (3.29-11.43) 06/22/24 13:29 RBC 3.11 10^6/uL (3.85-5.65) L 06/22/24 13:29 Hgb 10.40 g/dL (11.27-16.99) L 06/22/24 13: Hct 30.9 % (37-53) L 06/22/24 13: MCV 99.4 fl (82-101) 06/22/24 13: MCH 33.4 pg (27-33) H 06/22/24 13: MCHC 33.7 g/dL (30-55) 06/22/24 13: RDW 12.0 % (12.1-15.1) L 06/22/24 13: Plt Count 206 10^3/cmm (157-399) 06/22/24 13: MPV 10.3 fL (7.4-10.4) 06/22/24 13: Neut % (Auto) 66.5 % 06/22/24 13: Lymph % (Auto) 19.9 % 06/22/24: [place] % (Auto) 5.6 % 06/22/24: Eos % (Auto) 6.9 % 06/22/24 13: Baso % (Auto) 0.4 % 06/22/24 13: Neut # (Auto) 3.65 10^3/uL (1.8-7.7) 06/22/24: Lymph # (Auto) 1.1 10^3/uL (0.8-4.8) 06/22/24 13: [place] # (Auto) 0.3 10^3/uL (0.2-0.9) 06/22/24: Eos # (Auto) 0.4 10^3/uL (0.0-0.8) 06/22/24: Baso # (Auto) 0.0 10^3/uL (0.0-0.1) 06/22/24: Nucleated RBC % (auto) 0 % 06/22/24: Nucleated RBCs # 0.0 /100WBC 06/22/24 13: Sodium 124 mmol/L (136-145) L 06/22/24 13: Potassium 5.0 mmol/L (3.5-5.1) 06/22/24 13: Chloride 91 mmol/L (98-107) L 06/22/24 13: Carbon Dioxide 20 mmol/L (22-29) L 06/22/24 13:29 Anion Gap 18.0 (5-19) 06/22/24 13:29 BUN 64 mg/dL (8-23) H 06/22/24 13:29 Creatinine 3.1 mg/dL (0.7-1.2) H 06/22/24 13:29 GFR Calculation 20.5 mL/min (90-130) L 06/22/24 13:29 Glucose 385 mg/dL (65-115) H 06/22/24 13:29 Calculated Osmolality 292 mOsm/kg (285-295) 06/22/24 13:29 Lactic Acid 1.9 mmol/L (0.5-2.2) 06/22/24 13:29 Calcium 8.9 mg/dL (8.5-10.5) 06/22/24 13:29 Total Bilirubin 0.3 mg/dL (0.15-1.2) 06/22/24 13:29 AST 17 U/L (0-40) 06/22/24 13:29 ALT 19 U/L (0-41) 06/22/24 13:29 Alkaline Phosphatase 82 U/L (40-130) 06/22/24 13:29 Total Protein 8.9 g/dL (6.6-8.7) H 06/22/24 13:29 Albumin 3.8 g/dL (3.5-5.2) 06/22/24 13:29 Globulin 5.1 g/dL (1.3-4.6) H 06/22/24 13:29 Lipase 86 U/L (13-60) H 06/22/24 13:29 Coronavirus (PCR) Negative (Negative) 06/22/24 14:21 Influenza A (PCR) Negative (Negative) 06/22/24 14:21 Influenza Type B (PCR) Negative (Negative) 06/22/24 14:21 RSV (PCR) Negative (Negative) 06/22/24 14:21 All radiology interpretation(s) finalized by discharge Discharge Plan Discharge Patient Disposition: Placed in Observation Admit Provider: Charles Iglesias Clinical Impression: Acute kidney injury, Acute hyponatremia Coding Level of Care Code ED Dark Room Attendant for g Fwd Related Data Home Medications ?Medication ?Instructions ?Recorded ?Confirmed cholecalciferol (vitamin D3) 25 50 mcg PO QAM 07/22/20 02/10/25 mcg (1,000 unit) tablet vitamin B complex-vitamin C-folic 1 tab PO DAILY 11/20/21 06/22/24 acid 1 mg tablet carboxymethylcellulose sodium 0.5 2 drp ophthalmic (eye) TID PRN 12/19/22 06/22/24 % eye drops redness docusate sodium 100 mg capsule 200 mg PO BID 12/19/22 06/22/24 (Colace) glucose 4 gram chewable tablet 4 g PO Q15M PRN for low blood sugar 12/19/22 06/22/24 lidocaine 5 % topical patch 1 patch topical DAILY PRN Pain 12/19/22 06/22/24 omega-3 fatty acids 1,000 mg 2,000 mg PO BID 12/19/22 06/22/24 capsule tadalafil 20 mg tablet 20 mg PO DAILY PRN Erectile 12/19/22 06/22/24 Dysfunction pantoprazole 40 mg tablet,delayed 40 mg PO BID 04/25/23 06/22/24 release tramadol 50 mg tablet 50 mg PO .Q4-6H PRN pain 04/25/23 06/22/24 amlodipine 10 mg tablet 10 mg PO QAM 09/25/23 06/22/24 atorvastatin 80 mg tablet 80 mg PO BEDTIME 09/25/23 06/22/24 diclofenac sodium 1 % topical gel 2 g topical QID 09/25/23 06/22/24 duloxetine 30 mg capsule,delayed 30 mg PO BID 09/25/23 06/22/24 release fluticasone propionate 50 2 spray intranasal DAILY 09/25/23 06/22/24 mcg/actuation nasal spray,suspension hydroxyzine HCl 50 mg tablet 50 mg PO BEDTIME 09/25/23 06/22/24 lactulose 10 gram/15 mL oral 15 ml PO DAILY PRN Constipation 09/25/23 06/22/24 solution metoprolol succinate 200 mg 100 mg PO DAILY 09/25/23 06/22/24 tablet,extended release 24 hr pregabalin 150 mg capsule 150 mg PO DAILY 09/25/23 06/22/24 tizanidine 4 mg tablet 4 mg PO BID PRN Spasms 09/25/23 06/22/24 cetirizine 10 mg tablet 10 mg PO DAILY PRN allergies 05/21/24 06/22/24 insulin aspart U-100 100 unit/mL 18 unit SUBCUT TID 05/21/24 06/22/24 (3 mL) subcutaneous pen (Novolog FlexPen U-100 Insulin aspart) polyethylene glycol 3350 17 gram 17 g PO DAILY PRN Constipation 05/21/24 06/22/24 oral powder packet (Miralax) valacyclovir 500 mg tablet 500 mg PO BID PRN viral 05/21/24 06/22/24 clopidogrel 75 mg tablet 75 mg PO DAILY 06/22/24 06/22/24 glipizide 10 mg tablet 10 mg PO TID 06/22/24 06/22/24 hydralazine 25 mg tablet 12.5 mg PO TID 06/22/24 06/22/24 insulin glargine 100 unit/mL (3 15 unit SUBCUT QPM 06/22/24 06/22/24 mL) subcutaneous pen lisinopril 40 mg tablet 40 mg PO DAILY 06/22/24 06/22/24 meclizine 25 mg chewable tablet 25 mg PO TID 06/22/24 06/22/24 semaglutide 1 mg/dose (4 mg/3 mL) 1 mg SUBCUT Q7D 06/22/24 06/22/24 subcutaneous pen injector tamsulosin 0.4 mg capsule 0.8 mg PO DAILY 06/22/24 06/22/24 trazodone 100 mg tablet 100 mg PO QPM 06/22/24 06/22/24 Previous Rx's ?Medication ?Instructions ?Recorded aspirin 81 mg tablet,delayed 81 mg PO QAM 30 days #30 tabs 03/03/21 release ([place] Low Dose Aspirin) furosemide 40 mg tablet (Lasix) 40 mg PO DAILY #30 tabs 09/27/23 fluconazole 100 mg tablet 100 mg PO DAILY #90 tabs 12/10/23 (Diflucan) lorazepam 1 mg tablet 0.5 - 1 mg (0.5 - 1 x 1 mg) PO Q6H 12/10/23 PRN Severe Nausea #30 tabs ondansetron HCl 4 mg tablet 4 mg PO QID PRN Nausea/vomiting 12/10/23 #30 tabs prochlorperazine maleate 10 mg 10 mg PO Q4H PRN Mild Nausea #30 12/10/23 tablet (Compazine) tabs mupirocin 2 % topical ointment 1 applic topical BID 2 weeks #22 02/20/24 grams apixaban 2.5 mg tablet (Eliquis) 2.5 mg PO BID #180 tabs 05/21/24 Allergies Allergy/AdvReac Type Severity Reaction Status Date / Time No Known Allergies Allergy Verified 06/22/24 13:13
[2024-06-22 13:58] LABS: Basophils % 0.4 %; Eosinophils # 0.4 10^3/uL (0.0-0.8); Eosinophils % 6.9 %; Hematocrit 30.9 % (37-53); Lymphocytes # 1.1 10^3/uL (0.8-4.8); Lymphocytes % 19.9 %; Mean Corpuscular HGB Conc 33.7 g/dL (30-55); Mean Corpuscular Hemoglobin 33.4 pg (27-33); Mean Corpuscular Volume 99.4 fl (82-101); Mean Platelet Volume 10.3 fL (7.4-10.4); Monocytes # 0.3 10^3/uL (0.2-0.9); Monocytes % 5.6 %; Neutrophils # 3.65 10^3/uL (1.8-7.7); Neutrophils % 66.5 %; Nucleated Red Blood Cells % 0 %; Platelet Count 206 10^3/cmm (157-399); Red Blood Count 3.11 10^6/uL (3.85-5.65); White Blood Count 5.49 10^3/uL (3.29-11.43)
[2024-06-22 14:16] LABS: Alanine Aminotransferase 19 U/L (0-41); Albumin Level 3.8 g/dL (3.5-5.2); Alkaline Phosphatase 82 U/L (40-130); Aspartate Amino Transferase 17 U/L (0-40); Blood Urea Nitrogen 64 mg/dL (8-23); Calcium 8.9 mg/dL (8.5-10.5); Carbon Dioxide 20 mmol/L (22-29); Chloride 91 mmol/L (98-107); Creatinine Clr Calc Pharmacy 28.2168; Globulin 5.1 g/dL (1.3-4.6); Glomerular Filtration Rate 20.5 mL/min (90-130); Glucose 385 mg/dL (65-115); Osmolality Calculated 292 mOsm/kg (285-295); Sodium 124 mmol/L (136-145); Total Bilirubin 0.3 mg/dL (0.15-1.2); Total Protein 8.9 g/dL (6.6-8.7)
[2024-06-22 14:18] LABS: Lactic Sepsis W/Reflex 1.9 mmol/L (0.5-2.2)
[2024-06-22] MEDS: sodium chloride 0.9% 1,000 ML 999 ML IV (14:49)
[2024-06-22 14:52] LABS: Lipase 86 U/L (13-60)
--- NOTE | 2024-06-22 15:01 | CTR_ITS ---
PROCEDURE INFORMATION: Exam: CT Abdomen And Pelvis Without Contrast Exam date and time: 06/22/2024 3:16 PM Age: 63 years old Clinical indication: Abdominal pain; Generalized TECHNIQUE: Imaging protocol: Computed tomography of the abdomen and pelvis without contrast. Radiation optimization: All CT scans at this facility use at least one of these dose optimization techniques: automated exposure control; mA and/or kV adjustment per patient size (includes targeted exams where dose is matched to clinical indication); or iterative reconstruction. COMPARISON: PT PET WB melanoma INITIAL 19400 10/29/2023 12:55 PM RADIATION DOSE METRICS: Total DLP (mGy-cm): 961.12 FINDINGS: Liver: Normal. No mass. Gallbladder and biliary ducts: Normal. No calcified stones. No ductal dilation. Pancreas: Normal. No ductal dilation. Spleen: Normal. No splenomegaly. Adrenal glands: Normal. No mass. Kidneys and ureters: Normal. No hydronephrosis. Stomach and bowel: Unremarkable. No obstruction. No mucosal thickening. Appendix: No evidence of appendicitis. Intraperitoneal space: Unremarkable. No free air. No significant fluid collection. Vasculature: Unremarkable. No abdominal aortic aneurysm. Lymph nodes: Unremarkable. No enlarged lymph nodes. Urinary bladder: Unremarkable as visualized. Reproductive: Unremarkable as visualized. Bones/joints: Unremarkable. No acute fracture. Soft tissues: Unremarkable. CT/CT abdomen pelvis con [id number] IMPRESSION: No acute findings.
[2024-06-22 15:21] LABS: Influenza A NEGATIVE (Negative); Influenza B NEGATIVE (Negative); Respiratory Syncytial Virus Ce NEGATIVE (Negative); SARS-CoV-2 PCR NEGATIVE (Negative)
--- NOTE | 2024-06-22 15:30 | PC.PHAR ---
patient unsure of meds, he knows he takes about 25 meds im [facility] different times.
--- NOTE | 2024-06-22 16:59 | PM.HP ---
Providers/Chief Complaint Admitting Physician: Charles Iglesias Primary Care Provider: Pam Diaz MD Chief Complaint: b/p 88/53 (va reffered), SOB History of Present Illness 63-year-old male with a past medical history of IgG kappa myeloma, anxiety, depression, hypertension, hyperlipidemia, type 2 diabetes mellitus complicated by peripheral neuropathy, CVA in 2020 with residual balance impairment, anemia, chronic stage 3b kidney disease briefly requiring dialysis in the past, chronic heart failure with preserved EF, and paroxysmal atrial fibrillation recently started on Eliquis who presents with generalized weakness and abdominal tightness for the past day or two. He noted feeling abdominal tightness and slight distention. He reports the tightness is located in his upper abdomen and is associated with pain from the tightness. Non-radiating. No aggravating or improving factors. No prior episodes. Stated this was already improving at the time of my eval. Additionally, he noted shortness of breath on exertion and dizziness. He notes the shortness of breath occurs when he is up and moving around. Improves at rest. No prior history of COPD and Asthma. He has required a few pillows to prop himself up at night but denies trouble breathing when lying flat. He denies chest pain, fever, chills, nausea, vomiting, changes in bowel movements, or urinary symptoms. Prior to arrival to ER [facility] when he had to sit down while checking out due to shortness of breath and dizziness. After resting for about 10 minutes, he was able to drive himself to the [place] where his blood pressure was found to be 80/53. He felt dizzy while at the [place] and almost fell a couple times but did not experience syncope. On arrival to the emergency room, following IVF (1L NS bolus) his blood pressure had improved to 131/65. Initial evaluation in the ER revealed: - Laboratory Findings: WBC 5.4, hemoglobin 10.4 (baseline), hematocrit 30, platelets 206, sodium 124 (previously 129 in 03/2024), potassium 5.0, chloride 91, bicarbonate 20, BUN 64, creatinine 3.1 (baseline 1.6-2.0, previously 2.0 in 03/2024), glucose 385, lactic acid 1.9, lipase 86. COVID-19, RSV, and influenza not detected. - Imaging Studies: Chest x-ray without acute cardiopulmonary abnormality. CT abdomen/pelvis without acute abnormality. The patient remains hemodynamically stable. He is admitted for further evaluation and management of acute kidney injury and generalized weakness. Review of Systems General: Reports: 10 or more systems reviewed and unremarkable except in HPI and below Medications/Allergies Home Medications ?Medication ?Instructions ?Recorded ?Confirmed ?Last Taken ?Type cholecalciferol (vitamin D3) 25 50 mcg PO QAM 12/02/19 06/22/24 06/22/24 History mcg (1,000 unit) tablet aspirin 81 mg tablet,delayed 81 mg PO QAM 30 days #30 tabs 03/03/21 06/22/24 06/22/24 Rx release ([place] Low Dose Aspirin) vitamin B complex-vitamin C-folic 1 tab PO DAILY 11/20/21 06/22/24 06/22/24 History acid 1 mg tablet carboxymethylcellulose sodium 0.5 2 drp ophthalmic (eye) TID PRN 12/19/22 06/22/24 06/22/24 History % eye drops redness docusate sodium 100 mg capsule 200 mg PO BID 12/19/22 06/22/24 06/22/24 History (Colace) glucose 4 gram chewable tablet 4 g PO Q15M PRN for low blood sugar 12/19/22 06/22/24 Unknown History lidocaine 5 % topical patch 1 patch topical DAILY PRN Pain 12/19/22 06/22/24 06/22/24 History omega-3 fatty acids 1,000 mg 2,000 mg PO BID 12/19/22 06/22/24 06/22/24 History capsule tadalafil 20 mg tablet 20 mg PO DAILY PRN Erectile 12/19/22 06/22/24 Unknown History Dysfunction pantoprazole 40 mg tablet,delayed 40 mg PO BID 04/25/23 06/22/24 06/22/24 History release tramadol 50 mg tablet 50 mg PO .Q4-6H PRN pain 04/25/23 06/22/24 06/22/24 History amlodipine 10 mg tablet 10 mg PO QAM 09/25/23 06/22/24 06/22/24 History atorvastatin 80 mg tablet 80 mg PO BEDTIME 09/25/23 06/22/24 06/22/24 History diclofenac sodium 1 % topical gel 2 g topical QID 09/25/23 06/22/24 Unknown History duloxetine 30 mg capsule,delayed 30 mg PO BID 09/25/23 06/22/24 06/22/24 History release fluticasone propionate 50 2 spray intranasal DAILY 09/25/23 06/22/24 06/22/24 History mcg/actuation nasal spray,suspension hydroxyzine HCl 50 mg tablet 50 mg PO BEDTIME 09/25/23 06/22/24 06/22/24 History lactulose 10 gram/15 mL oral 15 ml PO DAILY PRN Constipation 09/25/23 06/22/24 06/22/24 History solution metoprolol succinate 200 mg 100 mg PO DAILY 09/25/23 06/22/24 06/22/24 History tablet,extended release 24 hr pregabalin 150 mg capsule 150 mg PO DAILY 09/25/23 06/22/24 06/22/24 History tizanidine 4 mg tablet 4 mg PO BID PRN Spasms 09/25/23 06/22/24 06/22/24 History furosemide 40 mg tablet (Lasix) 40 mg PO DAILY #30 tabs 09/27/23 06/22/24 06/22/24 Rx fluconazole 100 mg tablet 100 mg PO DAILY #90 tabs 12/10/23 06/22/24 06/22/24 Rx (Diflucan) lorazepam 1 mg tablet 0.5 - 1 mg (0.5 - 1 x 1 mg) PO Q6H 12/10/23 06/22/24 06/22/24 Rx PRN Severe Nausea #30 tabs ondansetron HCl 4 mg tablet 4 mg PO QID PRN Nausea/vomiting 12/10/23 06/22/24 06/22/24 Rx #30 tabs prochlorperazine maleate 10 mg 10 mg PO Q4H PRN Mild Nausea #30 12/10/23 06/22/24 Unknown Rx tablet (Compazine) tabs mupirocin 2 % topical ointment 1 applic topical BID 2 weeks #22 02/20/24 06/22/24 06/22/24 Rx grams apixaban 2.5 mg tablet (Eliquis) 2.5 mg PO BID #180 tabs 05/21/24 06/22/24 06/22/24 Rx cetirizine 10 mg tablet 10 mg PO DAILY PRN allergies 05/21/24 06/22/24 06/22/24 History insulin aspart U-100 100 unit/mL 18 unit SUBCUT TID 05/21/24 06/22/24 06/22/24 History (3 mL) subcutaneous pen (Novolog FlexPen U-100 Insulin aspart) polyethylene glycol 3350 17 gram 17 g PO DAILY PRN Constipation 05/21/24 06/22/24 06/22/24 History oral powder packet (Miralax) valacyclovir 500 mg tablet 500 mg PO BID PRN viral 05/21/24 06/22/24 06/22/24 History clopidogrel 75 mg tablet 75 mg PO DAILY 06/22/24 06/22/24 Unknown History glipizide 10 mg tablet 10 mg PO TID 06/22/24 06/22/24 Unknown History hydralazine 25 mg tablet 12.5 mg PO TID 06/22/24 06/22/24 06/22/24 History insulin glargine 100 unit/mL (3 15 unit SUBCUT QPM 06/22/24 06/22/24 Unknown History mL) subcutaneous pen lisinopril 40 mg tablet 40 mg PO DAILY 06/22/24 06/22/24 Unknown History meclizine 25 mg chewable tablet 25 mg PO TID 06/22/24 06/22/24 Unknown History semaglutide 1 mg/dose (4 mg/3 mL) 1 mg SUBCUT Q7D 06/22/24 06/22/24 Unknown History subcutaneous pen injector tamsulosin 0.4 mg capsule 0.8 mg PO DAILY 06/22/24 06/22/24 Unknown History trazodone 100 mg tablet 100 mg PO QPM 06/22/24 06/22/24 Unknown History Allergies Allergy/AdvReac Type Severity Reaction Status Date / Time No Known Allergies Allergy Verified 06/22/24 13:13 PFSH Acute PFSH: Medical History Myeloma Upper respiratory infection Rhabdomyolysis Atrial fibrillation with rapid ventricular response Cellulitis and abscess of hand History of atrial fibrillation Chronic kidney disease Diabetic peripheral neuropathy associated with type 2 diabetes 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 of other part of right foot limited to breakdown of skin Stroke Lumbar paraspinal muscle spasm Glenohumeral arthritis Lumbar disc disease with radiculopathy 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 Pain management contract signed Degenerative lumbar disc Hyperlipidemia Hypertension Diabetes mellitus Surgical History 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 S/P dialysis catheter insertion Hx of appendectomy Hx of foot surgery Hx of cholecystectomy Family History Son Acute leukemia Denies family history of Anesthesia complication Social History Smoking and tobacco/nicotine status: never used tobacco/nicotine Alcohol intake: never Substance/Drug Use: never Caregiver/support person: Yes Lives independently: Yes Vitals/I&O/Wt Last Vital Signs Temp 97.5 F L 06/22/24 13:06 Pulse 70 06/22/24 15:30 BP 147/83 06/22/24 15:30 Pulse Ox 99 06/22/24 15:30 O2 Del Method Room Air 06/22/24 16:05 06/22/24 06/22/24 06/22/24 06:59 14:59 22:59 Intake Total 1000 / 1000 Balance 1000 / 1000 Weight last 48 hrs Weight 98.43 kg Physical Exam Narrative: - General: Alert and oriented male, no acute distress. [place] back to baseline - Cardiovascular: Regular heart rhythm, no murmurs, rubs or gallops - Pulmonary: Lungs clear to auscultation bilaterally, no wheezes, rales or rhonchi - Abdomen: Soft, non-distended, non-tender, no organomegaly - Extremities: No lower extremity edema - Neurologic: No focal deficits noted Data 06/22/24 13:29 06/22/24 13:29 Micro: Microbiology 06/22/24 14:55 Blood Culture - Preliminary Blood SPECIMEN COLLECTED 06/22/24 14:46 Blood Culture - Preliminary Blood SPECIMEN COLLECTED A&P Assessment and plan (1) Acute hyponatremia: (2) Acute kidney injury: (3) History of atrial fibrillation: (4) PVD (peripheral vascular disease): Plan Symptomatic Hypotension / Hx of Hypertension - Blood pressure on arrival noted to be 80/53 with associated dizziness and weakness - Treated with 1L normal saline bolus in the ER with improvement in symptoms - Likely multi-factorial etiology includin. Volume depletion in the setting of chronic kidney disease and recent initiation of Eliquis 2. Medication effect from antihypertensives and diuretics 3. 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 Admit for close monitoring of vital signs and fluid status 2. Hold antihypertensive medications and diuretics until hemodynamically stable 3. Gentle volume resuscitation with IV fluids, targeting a systolic blood pressure >100 mmHg 6. Assess for orthostatic hypotension and implement fall precautions 7. Monitor for underlying infection or sepsis as potential contributing factors - UA is pending. Acute on Chronic stage 3b Kidney Disease - History of chronic stage 3b kidney disease now presenting with acute kidney injury. - Blood pressure on arrival was 95/60. - Treated with 1L normal saline bolus in the ER. -Presenting symptoms of dizziness and weakness may be related to transient hypotension and volume shifts. Differential includes: 1. Pre-renal azotemia due to volume depletion and hypotension. 2. Progression of underlying chronic kidney disease. Plan: 1. Closely monitor vital signs and fluid balance. 2. Anticipate medication adjustments, particularly for antihypertensives, based on hemodynamics. 3. Trend creatinine, BUN, and electrolytes. 4. Consider renal ultrasound if no improvement. 5. Nephrology consultation if worsening renal function persists. Hyponatremia - Sodium of 124, previously 129 in 03/2024, likely dilutional or related to volume shifts. Plan: 1. Monitor sodium levels closely. 2. Fluid restriction if persistent. 3. Assess for confusion or altered mental status. Diabetes Mellitus with Hyperglycemia - Glucose of 385, likely related to underlying diabetes and acute illness. Plan: 1. Sliding scale insulin coverage. 2. Lantus 5 units, increase based on glucose levels 3. Adjust diabetes medications as needed for optimal control. Atrial Fibrillation - History of paroxysmal atrial fibrillation, recently started on Eliquis for stroke prevention. - Metoprolol Xl 100 mg daily at home Plan: 1. Continue Eliquis 2.5 mg BID 2. Decrease Metoprolol XL to 50 mg daily 3. Electrolyte repletion as indicated. Chronic Heart Failure with Preserved EF - Presenting symptoms of dyspnea on exertion may reflect decompensation. Plan: 1. Gentle diuresis once hemodynamically stable. 2. Optimize guideline-directed medical therapy. 3. Strict fluid balance and daily weights. 4. Low salt diet and fluid restriction. IgG [place] Myeloma - Was seen by Dr. Glynn in december. - Noted he is not currently receiving treatment for his myeloma. - Stated I'm not gonna fight it - Declined further treatment for his myeloma at this time, citing concerns about potential risk for dialysis with treatment and impact on quality of life. Plan: 1. No further work up while admitted 2. CT abd/Pelvis did not show any acute abnormality. PDMP PDMP Reviewed: Not Reviewed Attestations Medical Necessity Statement*: Anticipate less than 2 midnight stay for eval and treatment Time Spent in Patient Care: Greater than 35 minutes Coding Level of Care Code 72185 Diagnoses Acute hyponatremia E87.1 Acute kidney injury N17.9 History of atrial fibrillation Z86.79 PVD (peripheral vascular disease) I73.9
--- NOTE | 2024-06-22 17:31 | PC.NURSE ---
Addendum entered by Arlin Saini LPN 06/22/24 17:55: Pt up to floor via wheelchair at 1755 to room 279-1. This nurse assumed care of pt at this time. Original Note: This nurse took report from YAMZIN Morrissey in the ER at 1732.
[2024-06-22 17:39] LABS: Bilirubin Urine Negative (Negative); Blood Urine Negative (Negative); Glucose Urine UA 3+ (Normal); Ketones Urine Negative (Negative); Leukocyte Esterase Urine Negative (Negative); Nitrate Urine Negative (Negative); Protein Urine Negative (Negative); Specific Gravity, Urine 1.013 (1.005-1.030); Urine Appearance Clear (CLEAR); Urine Color Yellow (Yellow); Urobilinogen Urine 0.2 mg/dL (Negative)
[2024-06-22 17:44] LABS: Add Urine Microscopic? YES; Bacteria Urine None Seen /hpf; Hyaline Casts Urine 4.95 /lpf; RBC Urine 0-2 /hpf (0-2); Squamous Epithelial Cell Urine 0-5 /hpf (0-5); WBC Urine 0-5 /hpf (0-5)
[2024-06-22 18:14] LABS: Urine Creatinine 48 mg/dL (39-259); Urine Random Sodium 45 mmol/L
[2024-06-22 18:20] LABS: Glucose Point of Care 380 mg/dL (70-110)
[2024-06-22] MEDS: pantoprazole DR 40 mg Tablet PO (18:30)
[2024-06-22] MEDS: trazodone 100 mg Tablet PO (18:30)
[2024-06-22] MEDS: lactated ringers 1,000 ML 50 ML IV (18:30)
[2024-06-22] MEDS: insulin lispro 100 unit/1 mL SUBCUT (18:30)
[2024-06-22 18:46] LABS: Urea Nitrogen,Urine Random 278 mg/dL
[2024-06-22] MEDS: apixaban 5 mg Tablet 2.5 MG PO (20:46)
[2024-06-22] MEDS: atorvastatin 40 mg Tablet 80 MG PO (20:46)
[2024-06-22 20:50] LABS: Glucose Point of Care 227 mg/dL (70-110)
[2024-06-22] MEDS: insulin glargine 100 units/1 mL 5 UNIT SUBCUT (20:52)
[2024-06-23] VITALS: BP 97/56; PULSE 71; RESP 16; TEMP 36.9; O2SAT 92
[2024-06-23 04:00] VITALS: BP 92/58; PULSE 80; RESP 16; TEMP 36.7; O2SAT 95
[2024-06-23 05:04] VITALS: PULSE 74
[2024-06-23] MEDS: aspirin 81 mg EC Tablet PO (05:45)
[2024-06-23 06:13] LABS: Glucose Point of Care 89 mg/dL (70-110)
[2024-06-23 06:47] LABS: Basophils % 0.5 %; Eosinophils # 0.3 10^3/uL (0.0-0.8); Eosinophils % 7.7 %; Hematocrit 29.7 % (37-53); Lymphocytes # 1.2 10^3/uL (0.8-4.8); Lymphocytes % 27.8 %; Mean Corpuscular Hemoglobin 32.3 pg (27-33); Mean Corpuscular Volume 94.9 fl (82-101); Mean Platelet Volume 10.2 fL (7.4-10.4); Monocytes # 0.4 10^3/uL (0.2-0.9); Monocytes % 9.1 %; Neutrophils # 2.39 10^3/uL (1.8-7.7); Neutrophils % 54.4 %; Nucleated Red Blood Cells % 0 %; Platelet Count 199 10^3/cmm (157-399); Red Blood Count 3.13 10^6/uL (3.85-5.65); White Blood Count 4.39 10^3/uL (3.29-11.43)
[2024-06-23 07:26] LABS: Anion Gap 16.1 (5-19); Blood Urea Nitrogen 53 mg/dL (8-23); Calcium 9.1 mg/dL (8.5-10.5); Carbon Dioxide 22 mmol/L (22-29); Chloride 102 mmol/L (98-107); Creatinine Clr Calc Pharmacy 36.3335; Glomerular Filtration Rate 27.5 mL/min (90-130); Glucose 85 mg/dL (65-115); Magnesium 2.1 mg/dL (1.7-2.3); Osmolality Calculated 296 mOsm/kg (285-295); Potassium 4.1 mmol/L (3.5-5.1); Sodium 136 mmol/L (136-145)
[2024-06-23 07:46] VITALS: BP 112/69; PULSE 77; RESP 15; TEMP 36.5; O2SAT 96
[2024-06-23] MEDS: tamsulosin 0.4 mg Capsule 0.8 MG PO (08:12)
[2024-06-23] MEDS: pregabalin 150 mg Capsule PO (08:12)
[2024-06-23] MEDS: apixaban 5 mg Tablet 2.5 MG PO (08:13)
[2024-06-23] MEDS: pantoprazole DR 40 mg Tablet PO (08:13)
[2024-06-23] MEDS: metoprolol succinate ER (24 HR) 50 mg Tablet PO (09:30)
[2024-06-23 10:40] VITALS: BP 112/69; PULSE 77; RESP 15; TEMP 36.5; O2SAT 96
[2024-06-29 16:10] LABS: Osmolality Urine 291 mOsm/kg (50-1200)
--- NOTE | 2024-07-01 19:43 | P.DS_ITS ---
Discharge Providers Date of Admission: 06/22/24 15:58 Date of Discharge: June 23, 2024 Attending Provider at Admission: Charles Iglesias Attending Provider at Discharge: Charles Iglesias Primary Care Provider: Pam Diaz MD Diagnoses at Discharge Discharge Diagnosis (1) Acute hyponatremia: Status: Acute (2) Acute kidney injury: Status: Acute (3) History of atrial fibrillation: Status: Acute (4) PVD (peripheral vascular disease): Status: Acute Reason for Visit Reason for Visit: b/p 88/53 (va reffered), SOB Hospital Course Hospital Course 63-year-old male with a past medical history of IgG kappa myeloma, anxiety, depression, hypertension, hyperlipidemia, type 2 diabetes mellitus complicated by peripheral neuropathy, CVA in 2020 with residual balance impairment, anemia, chronic stage 3b kidney disease briefly requiring dialysis in the past, chronic heart failure with preserved EF, and paroxysmal atrial fibrillation recently started on Eliquis who presents with generalized weakness and abdominal tightness for the past day or two. He noted feeling abdominal tightness and slight distention. He reports the tightness is located in his upper abdomen and is associated with pain from the tightness. Non-radiating. No aggravating or improving factors. No prior episodes. Stated this was already improving at the time of my eval. Additionally, he noted shortness of breath on exertion and dizziness. He notes the shortness of breath occurs when he is up and moving around. Improves at rest. No prior history of COPD and Asthma. He has required a few pillows to prop himself up at night but denies trouble breathing when lying flat. He denies chest pain, fever, chills, nausea, vomiting, changes in bowel movements, or urinary symptoms. Prior to arrival to ER he was shopping at [employer] when he had to sit down while checking out due to shortness of breath and dizziness. After resting for about 10 minutes, he was able to drive himself to the [place] where his blood pressure was found to be 80/53. He felt dizzy while at the [place] and almost fell a couple times but did not experience syncope. On arrival to the emergency room, following IVF (1L NS bolus) his blood pressure had improved to 131/65. Initial evaluation in the ER revealed: - Laboratory Findings: WBC 5.4, hemoglobin 10.4 (baseline), hematocrit 30, platelets 206, sodium 124 (previously 129 in 03/2024), potassium 5.0, chloride 91, bicarbonate 20, BUN 64, creatinine 3.1 (baseline 1.6-2.0, previously 2.0 in 03/2024), glucose 385, lactic acid 1.9, lipase 86. COVID-19, RSV, and influenza not detected. - Imaging Studies: Chest x-ray without acute cardiopulmonary abnormality. CT abdomen/pelvis without acute abnormality. The patient remains hemodynamically stable. He is admitted for further evaluation and management of acute kidney injury and generalized weakness. Upon admission to the hospital management is noted below: Symptomatic Hypotension / Hx of Hypertension - Blood pressure on arrival noted to be 80/53 with associated dizziness and weakness - Treated with 1L normal saline bolus in the ER with improvement in symptoms - Likely multi-factorial etiology includin. Volume depletion in the setting of chronic kidney disease and recent initiation of Eliquis 2. Medication effect from antihypertensives and diuretics 3. Autonomic dysfunction related to diabetes and prior stroke Plan: - Orthostatic vitals were negative. Patient was on multiple antihypertensives at home he could not exactly determine which ones however per his med rec he was noted to be on Lasix 40 mg daily, hydralazine 25 mg t.i.d., lisinopril 40 mg daily and was on metoprolol 100 mg extended release daily. This was decreased to metoprolol 25 mg extended release daily. Patient's blood pressure was very soft throughout hospitalization. He stated he did on monitor at home. At the time of discharge pharmacy was consulted to assist with home medication reconciliation. Blood cultures were drawn emergency room which were negative at the time of discharge. Acute on Chr were negative. onic stage 3b Kidney Disease - History of chronic stage 3b kidney disease now presenting with acute kidney injury. - Blood pressure on arrival was 95/60. - Treated with 1L normal saline bolus in the ER. -Presenting symptoms of dizziness and weakness may be related to transient hypotension and volume shifts. Differential includes: 1. Pre-renal azotemia due to volume depletion and hypotension. 2. Progression of underlying chronic kidney disease. Plan: -Creatinine improved to 2.4 on the . -Baseline creatinine was noted to be 2.0 Hyponatremia - Sodium of 124, previously 129 in 03/2024, likely dilutional or related to volume shifts. Plan: - following IV fluids in emergency room the next day his sodium was noted to be 136. Diabetes Mellitus w ith Hyperglycemia - Glucose of 385, likely related to underlying diabetes and acute illness. Plan: - At home he was on glipizide t.i.d. in addition to mealtime insulin as well as long-acting. Here he was just started on sliding scale long-acting. Patient was instructed to closely monitor his glucose levels at home as he was slightly hypoglycemic here. It stated his diet was improving and he would monitor at home. Prolonged discussion regarding patient's diabetes management. Atrial Fibrillation - History of paroxysmal atrial fibrillation, recently started on Eliquis for stroke prevention. - Metoprolol Xl 100 mg daily at home Plan: 1. Continue Eliquis 2.5 mg BID 2. Decrease Metoprolol XL to 50 mg daily Chronic Heart Failure with Preserved EF - Presenting symptoms of dyspnea on exertion may reflect decompensation. Plan: - Advised to monitor daily weight at home. He was instructed to take lasix as needed based on him home weight and symptoms. IgG [place] Myeloma - Was seen by Dr. Glynn in december. - Noted he is not currently receiving treatment for his myeloma. - Stated I'm not gonna fight it - Declined further treatment for his myeloma at this time, citing concerns about potential risk for dialysis with treatment and impact on quality of life. Plan: 1. No further work up while admitted 2. CT abd/Pelvis did not show any acute abnormality. Patient stated he felt well and wanted to go home. Advised to follow up with his primary care physician. Physical Exam Narrative: - General: Alert and oriented male, no a cute distress. [place] back to baseline - Cardiovascular: Regular heart rhythm, no murmurs, rubs or gallops - Pulmonary: Lungs clear to auscultation bilaterally, no wheezes, rales or rhonchi - Abdomen: Soft, non-distended, non-tend er, no organomegaly - Extremities: No lower extremity edema - Neurologic: No focal deficits noted Discharge Data Studies Completed and Pending Completed Studies During Hospitalization Category Date Time Status CT abdomen pelvis wo con [id number] Stat Cat Scan 06/22/24 15:01 Completed XR chest 1V portable [id number] Stat Exams 06/22/24 12:52 Completed Radiology Impressions Chest X-Ray 06/22/24 12:52 IMPRESSION: Unremarkable portable chest. Abdomen/Pelvis CT 06/22/24 15:01 IMPRESSION: No acute findings. Laboratory Results WBC 4.39 10^3/uL (3.29-11.43) 06/23/24 06:36 RBC 3.13 10^6/uL (3.85-5.65) L 06/23/24 06:36 Hgb 10.10 g/dL (11.27-16.99) L 06/23/24 06:36 Hct 29.7 % (37-53) L 06/23/24 06:36 MCV 94.9 fl (82-101) 06/23/24 06:36 MCH 32.3 pg (27-33) 06/23/24 06:36 MCHC 34.0 g/dL (30-55) 06/23/24 06:36 RDW 12.0 % (12.1-15.1) L 06/23/24 06:36 Plt Count 199 10^3/cmm (157-399) 06/23/24 06:36 MPV 10.2 fL (7.4-10.4) 06/23/24 06:36 Neut % (Auto) 54.4 % 06/23/24 06:36 Lymph % (Auto) 27.8 % 06/23/24 06:36 Wirt % (Auto) 9.1 % 06/23/24 06:36 Eos % (Auto) 7.7 % 06/23/24 06:36 Baso % (Auto) 0.5 % 06/23/24 06:36 Neut # (Auto) 2.39 10^3/uL (1.8-7.7) 06/23/24 06:36 Lymph # (Auto) 1.2 10^3/uL (0.8-4.8) 06/23/24 06:36 Wirt # (Auto) 0.4 10^3/uL (0.2-0.9) 06/23/24 06:36 Eos # (Auto) 0.3 10^3/uL (0.0-0.8) 06/23/24 06:36 Baso # (Auto) 0.0 10^3/uL (0.0-0.1) 06/23/24 06:36 Nucleated RBC % (auto) 0 % 06/23/24 06:36 Nucleated RBCs # 0.0 /100WBC 06/23/24 06:36 Sodium 136 mmol/L (136-145) 06/23/24 06:36 Potassium 4.1 mmol/L (3.5-5.1) 06/23/24 06:36 Chloride 102 mmol/L (98-107) 06/23/24 06:36 Carbon Dioxide 22 mmol/L (22-29) 06/23/24 06:36 Anion Gap 16.1 (5-19) 06/23/24 06:36 BUN 53 mg/dL (8-23) H 06/23/24 06:36 Creatinine 2.4 mg/dL (0.7-1.2) H 06/23/24 06:36 GFR Calculation 27.5 mL/min (90-130) L 06/23/24 06:36 Glucose 85 mg/dL (65-115) 06/23/24 06:36 POC Glucose 89 mg/dL (70-110) 06/23/24 06:09 Calculated Osmolality 296 mOsm/kg (285-295) H 06/23/24 06:36 Lactic Acid 1.9 mmol/L (0.5-2.2) 06/22/24 13:29 Calcium 9.1 mg/dL (8.5-10.5) 06/23/24 06:36 Magnesium 2.1 mg/dL (1.7-2.3) 06/23/24 06:36 Total Bilirubin 0.3 mg/dL (0.15-1.2) 06/22/24 13:29 AST 17 U/L (0-40) 06/22/24 13:29 ALT 19 U/L (0-41) 06/22/24 13:29 Alkaline Phosphatase 82 U/L (40-130) 06/22/24 13:29 Total Protein 8.9 g/dL (6.6-8.7) H 06/22/24 13:29 Albumin 3.8 g/dL (3.5-5.2) 06/22/24 13:29 Globulin 5.1 g/dL (1.3-4.6) H 06/22/24 13:29 Lipase 86 U/L (13-60) H 06/22/24 13:29 Urine Color Yellow (Yellow) 06/22/24 17:10 Urine Appearance Clear (CLEAR) 06/22/24 17:10 Urine pH 5.0 (5-7) 06/22/24 17:10 Ur Specific [place] 1.013 (1.005-1.030) 06/22/24 17:10 Urine Protein Negative (Negative) 06/22/24 17:10 Urine Glucose (UA) 3+ (Normal) H 06/22/24 17:10 Urine Ketones Negative (Negative) 06/22/24 17:10 Urine Blood Negative (Negative) 06/22/24 17:10 Urine Nitrate Negative (Negative) 06/22/24 17:10 Urine Bilirubin Negative (Negative) 06/22/24 17:10 Urine Urobilinogen 0.2 mg/dL (Negative) 06/22/24 17:10 Ur Leukocyte Esterase Negative (Negative) 06/22/24 17:10 Urine RBC 0-2 /hpf (0-2) 06/22/24 17:10 Urine WBC 0-5 /hpf (0-5) 06/22/24 17:10 Ur Squamous Epith Cells 0-5 /hpf (0-5) 06/22/24 17:10 Amorphous Sediment Not Reportable 06/22/24 17:10 Urine Bacteria None seen /hpf (NONE) 06/22/24 17:10 Hyaline Casts 4.95 /lpf 06/22/24 17:10 Urine Osmolality 291 mOsm/kg (50-1200) 06/22/24 17:10 Ur Random Sodium 45 mmol/L 06/22/24 17:10 Ur Random Urea Nitrogn 278 mg/dL 06/22/24 17:10 Urine Creatinine 48 mg/dL (39-259) 06/22/24 17:10 Coronavirus (PCR) Negative (Negative) 06/22/24 14:21 Influenza A (PCR) Negative (Negative) 06/22/24 14:21 Influenza Type B (PCR) Negative (Negative) 06/22/24 14:21 RSV (PCR) Negative (Negative) 06/22/24 14:21 Vitals Last Vital Signs Temp 97.7 F 06/23/24 10:40 Pulse 77 06/23/24 10:40 Resp 15 06/23/24 10:40 BP 112/69 06/23/24 10:40 Pulse Ox 96 06/23/24 10:40 O2 Del Method Room Air 06/23/24 07:46 Discharge Plan Discharge Patient Disposition: Home Condition: Stable Prescriptions: New metoprolol succinate 25 mg capsule,sprinkle,ER 24hr 25 mg PO DAILY 30 Days Qty: 30 0RF Continued valacyclovir 500 mg tablet 500 mg PO BID PRN (Reason: viral) Rx Instructions: Continue 3 months post treatment for prevention of viral infection. Eliquis 2.5 mg tablet 2.5 mg PO BID Qty: 180 3RF mupirocin 2 % ointment 1 applic topical BID 14 Days Qty: 22 2RF cholecalciferol (vitamin D3) 25 mcg (1,000 unit) Tablet 50 mcg PO QAM polyethylene glycol 3350 [Miralax] 17 gram powder in packet 17 g PO DAILY PRN (Reason: Constipation) aspirin [[place] Low Dose Aspirin] 81 mg Tablet,Delayed Release (Dr/Ec) 81 mg PO QAM 30 Days Qty: 30 3RF pantoprazole 40 mg tablet,delayed release (DR/EC) 40 mg PO BID tramadol 50 mg tablet 50 mg PO .Q4-6H PRN (Reason: pain) ondansetron HCl 4 mg Tablet 4 mg PO QID PRN (Reason: Nausea/vomiting) Qty: 30 3RF prochlorperazine maleate [Compazine] 10 mg tablet 10 mg PO Q4H PRN (Reason: Mild Nausea) Qty: 30 3RF lorazepam 1 mg tablet 0.5 - 1 mg PO Q6H PRN (Reason: Severe Nausea) Qty: 30 3RF glipizide 10 mg Tablet 10 mg PO TID tamsulosin 0.4 mg Capsule 0.8 mg PO DAILY trazodone 100 mg Tablet 100 mg PO QPM insulin glargine 100 unit/mL (3 mL) Insulin Pen 15 unit SUBCUT QPM semaglutide 1 mg/dose (4 mg/3 mL) Pen Injector 1 mg SUBCUT Q7D B complex-vitamin C-folic acid 1 mg Tablet 1 tab PO DAILY omega-3 fatty acids 1,000 mg Capsule 2,000 mg PO BID carboxymethylcellulose sodium 0.5 % Drops 2 drp ophthalmic (eye) TID PRN (Reason: redness) lidocaine 5 % Adhesive Patch,Medicated 1 patch topical DAILY PRN (Reason: Pain) Rx Instructions: on for 12 hours off for 12 hours glucose 4 gram Tablet,Chewable 4 g PO Q15M PRN (Reason: for low blood sugar) Rx Instructions: until symptoms of low blood sugar are controlled docusate sodium [Colace] 100 mg Capsule 200 mg PO BID insulin aspart U-100 [Novolog FlexPen U-100 Insulin] 100 unit/mL (3 mL) insulin pen 18 unit SUBCUT TID Rx Instructions: sliding scale atorvastatin 80 mg Tablet 80 mg PO BEDTIME tizanidine 4 mg Tablet 4 mg PO BID PRN (Reason: Spasms) fluticasone propionate 50 mcg/actuation [place],Suspension 2 spray INTRANASAL DAILY Rx Instructions: administer into each nostril lactulose 10 gram/15 mL Solution 15 ml PO DAILY PRN (Reason: Constipation) pregabalin 150 mg Capsule 150 mg PO DAILY diclofenac sodium 1 % Gel 2 g TOPICAL QID Rx Instructions: apply to single elbow, wrist or hand; for hand includes palm/fingers/back of hand cetirizine 10 mg tablet 10 mg PO DAILY PRN (Reason: allergies) Changed duloxetine 30 mg Capsule,Delayed Release(Dr/Ec) 30 mg PO DAILY Qty: 30 0RF Discontinued fluconazole [Diflucan] 100 mg tablet 100 mg PO DAILY Qty: 90 2RF Rx Instructions: For fungal infection prevention. clopidogrel 75 mg Tablet 75 mg PO DAILY lisinopril 40 mg Tablet 40 mg PO DAILY meclizine 25 mg Tablet,Chewable 25 mg PO TID hydralazine 25 mg tablet 12.5 mg PO TID tadalafil 20 mg Tablet 20 mg PO DAILY PRN (Reason: Erectile Dysfunction) Rx Instructions: administer approximately 30min before sexual activity; do not use more than 1 dose per 24hrs metoprolol succinate 200 mg Tablet Extended Release 24 Hr 100 mg PO DAILY hydroxyzine HCl 50 mg Tablet 50 mg PO BEDTIME amlodipine 10 mg tablet 10 mg PO QAM Rx Instructions: Dose change furosemide [Lasix] 40 mg tablet 40 mg PO DAILY Qty: 30 0RF Discharge Orders: Discharge Order (Routine); Ordered 06/23/24 Ordered By: Charles Iglesias Referrals: Pam Diaz MD [Primary Care Provider] - (We have notified your physician's clinic of the need for a follow-up appointment to be scheduled. If you have not heard from them within the next 2 business days, please call them directly. ) Discharge Diet: Regular and Cardiac Discharge Activity: Increase activity as tolerated Patient Instructions: Metoprolol (By mouth), Hyponatremia (GEN), Opioid Safety Discharge Attestations Time Spent in Discharge Care*: greater than 30 min Status at Discharge: Cognitive status at discharge: cognitively intact , Behavioral status at discharge: cooperative , Functional status at discharge: independent ambulation , Overall status at discharge: patient is back to baseline Quality Metrics Clinical Quality Measures [ No reported AMI, CVA or VTE this stay] Coding Level of Care Code Acute Code for Chg Fwd Diagnoses Acute hyponatremia E87.1 Acute kidney injury N17.9 History of atrial fibrillation Z86.79 PVD (peripheral vascular disease) I73.9
== END 2024-06-23 10:42 | disposition home or self-care (01) ==
LOC: ER 14:00 → ER IP 15:59 → MEDSURG 17:41
PROVIDERS: Emergency Medicine; Admitting Provider Hospitalist; Emergency Provider Family Medicine; PCP Family Medicine; Visit Provider Hospitalist
DX: N17.9 Acute kidney failure, unspecified (principal); I95.9 Hypotension, unspecified; Z89.422 Acquired absence of other left toe(s); Z90.49 Acquired absence of other specified parts of digestive tract; E78.5 Hyperlipidemia, unspecified; E11.22 Type 2 diabetes mellitus with diabetic chronic kidney disease; Z11.52 Encounter for screening for COVID-19; E87.1 Hypo-osmolality and hyponatremia; F41.9 Anxiety disorder, unspecified; F32.A Depression, unspecified; I69.998 Other sequelae following unspecified cerebrovascular disease; R26.89 Other abnormalities of gait and mobility; N18.32 Chronic kidney disease, stage 3b; D64.9 Anemia, unspecified; I13.0 Hypertensive heart and chronic kidney disease with heart failure and stage 1 through stage 4 chronic kidney disease, or unspecified chronic kidney disease; I50.32 Chronic diastolic (congestive) heart failure; I48.0 Paroxysmal atrial fibrillation; Z79.01 Long term (current) use of anticoagulants; Z79.899 Other long term (current) drug therapy; Z79.85 Long-term (current) use of injectable non-insulin antidiabetic drugs; Z79.4 Long term (current) use of insulin; I73.9 Peripheral vascular disease, unspecified; C90.00 Multiple myeloma not having achieved remission; E11.42 Type 2 diabetes mellitus with diabetic polyneuropathy
CPT/HCPCS: 36415; 36416; 71045; 74176; 80048; 80053; 81001; 82570; 82962; 83605; 83690; 83735; 83935; 84300; 84540; 85025; 87040; 87637; 93005; 96360; 96372; 99285; G0378; J1815; J7030; J7120

== ENCOUNTER → 2024-08-04 06:46 | Outpatient (BNVA) | payer OTHER, SELFPAY | PROVIDERS: PCP Family Medicine; Visit Provider Podiatrist Foot & Ankle Surgery | DX: E11.42 Type 2 diabetes mellitus with diabetic polyneuropathy (principal); I73.9 Peripheral vascular disease, unspecified; Z89.421 Acquired absence of other right toe(s); Q66.71 Congenital pes cavus, right foot; Q66.72 Congenital pes cavus, left foot; Z79.4 Long term (current) use of insulin | CPT/HCPCS: 99213 ==

== ENCOUNTER 2024-08-14 10:16 | Outpatient (CLI) | payer OTHER, SELFPAY ==
[2024-08-14 11:07] LABS: Basophils % 0.3 %; Eosinophils # 0.3 10^3/uL (0.0-0.8); Eosinophils % 5.3 %; Hematocrit 36.2 % (37-53); Lymphocytes # 0.8 10^3/uL (0.8-4.8); Lymphocytes % 13.7 %; Mean Corpuscular Hemoglobin 32.5 pg (27-33); Mean Corpuscular Volume 95.8 fl (82-101); Mean Platelet Volume 9.7 fL (7.4-10.4); Monocytes # 0.4 10^3/uL (0.2-0.9); Monocytes % 6.9 %; Neutrophils # 4.47 10^3/uL (1.8-7.7); Neutrophils % 73.5 %; Nucleated Red Blood Cells % 0 %; Platelet Count 261 10^3/cmm (157-399); Red Blood Count 3.78 10^6/uL (3.85-5.65); Red Cell Distribution Width 12.9 % (12.1-15.1); White Blood Count 6.08 10^3/uL (3.29-11.43)
[2024-08-14 11:28] LABS: Creatinine Urine, Random 56 mg/dL (39-259)
[2024-08-14 11:28] LABS: Calcium 8.8 mg/dL (8.5-10.5)
[2024-08-14 11:41] LABS: Microalbum Creatinine Ratio Ur 1018 mg/dL (0-20); Microalbumin Random Urine 57 ug/dL (0-20)
== END 2024-08-14 10:17 | disposition home or self-care (01) ==
PROVIDERS: PCP Family Medicine; Visit Provider Internal Medicine Nephrology
DX: N18.32 Chronic kidney disease, stage 3b (principal); D64.9 Anemia, unspecified; E55.9 Vitamin D deficiency, unspecified; E87.1 Hypo-osmolality and hyponatremia
CPT/HCPCS: 36415; 82044; 82306; 82310; 82728; 83540; 83970; 85025

== ENCOUNTER 2024-08-18 11:05 | Outpatient (CLI) | payer OTHER, SELFPAY ==
[2024-08-18 12:02] LABS: Albumin Level 3.8 g/dL (3.5-5.2); Anion Gap 12.4 (5-19); Blood Urea Nitrogen 33 mg/dL (8-23); Calcium 8.8 mg/dL (8.5-10.5); Carbon Dioxide 21 mmol/L (22-29); Chloride 104 mmol/L (98-107); Glomerular Filtration Rate 40.9 mL/min (90-130); Glucose 253 mg/dL (65-115); Phosphorus 3.3 mg/dL (2.5-4.5); Potassium 4.4 mmol/L (3.5-5.1); Sodium 133 mmol/L (136-145)
== END 2024-08-18 11:06 | disposition home or self-care (01) ==
LOC: LAB 11:09
PROVIDERS: PCP Family Medicine; Visit Provider Internal Medicine Nephrology
DX: N18.32 Chronic kidney disease, stage 3b (principal); D64.9 Anemia, unspecified; E87.1 Hypo-osmolality and hyponatremia; E55.9 Vitamin D deficiency, unspecified
CPT/HCPCS: 36415; 80069

== ENCOUNTER 2024-10-08 09:12 | Emergency (ER) | payer OTHER, SELFPAY ==
--- NOTE | 2024-10-08 09:16 | ECG_ITS ---
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 Measurements Intervals [place] Rate: 95 P: 41 VT: 204 QRS: -35 QRSD: 99 T: 29 QT: 363 QTc: 458 Interpretive Statements SINUS RHYTHM LEFT AXIS DEVIATION [QRS AXIS < -30] Compared to ECG 06/22/2024 13:09:52 Left-axis deviation now present First degree AV block no longer present Electronically Signed On 10-13-2024 11:51:46 CDT by Hussain Flores M.D. [id number] [id number]
--- NOTE | 2024-10-08 09:16 | XR_ITS ---
WS: [id number] Portable AP upright chest, 10/08/2024 Clinical Data: chest pain Comparison: Portable chest, 06/22/2024 Findings: No nodules, masses or effusions are seen. The heart is normal. The pulmonary vascularity is not increased. No pneumonia or pneumothorax is seen. There are monitor leads on the chest wall. XR/XR chest 1V portable [id number] Impression: Negative chest.
--- NOTE | 2024-10-08 09:17 | W.ED.CHESTPA ---
HPI - Chest Pain General: Chief Complaint: Chest Pain Stated Complaint: cp Time Seen by Provider: 10/08/24 09:16 History of Present Illness: 64-year-old male presents emergency room with substernal chest pain that began approximately 3 days ago intermittently worse today some associated shortness of breath little worse with deep inspiration. Patient has a history of multiple myeloma that he is not treating per his choice. He has noted that he he gets worse symptoms when he eats they improve when he vomits. Associated symptoms: Reports abdominal pain (Epigastric), nausea and vomiting; Deny dyspnea or fever(s) Related Data Home Medications ?Medication ?Instructions ?Recorded ?Confirmed cholecalciferol (vitamin D3) 25 50 mcg PO QAM 12/02/19 08/04/24 mcg (1,000 unit) tablet vitamin B complex-vitamin C-folic 1 tab PO DAILY 11/20/21 08/04/24 acid 1 mg tablet carboxymethylcellulose sodium 0.5 2 drp ophthalmic (eye) TID PRN 12/19/22 08/04/24 % eye drops redness docusate sodium 100 mg capsule 200 mg PO BID 12/19/22 08/04/24 (Colace) glucose 4 gram chewable tablet 4 g PO Q15M PRN for low blood sugar 12/19/22 08/04/24 lidocaine 5 % topical patch 1 patch topical DAILY PRN Pain 12/19/22 08/04/24 omega-3 fatty acids 1,000 mg 2,000 mg PO BID 12/19/22 08/04/24 capsule pantoprazole 40 mg tablet,delayed 40 mg PO BID 04/25/23 08/04/24 release tramadol 50 mg tablet 50 mg PO .Q4-6H PRN pain 04/25/23 08/04/24 atorvastatin 80 mg tablet 80 mg PO BEDTIME 09/25/23 08/04/24 diclofenac sodium 1 % topical gel 2 g topical QID 09/25/23 08/04/24 fluticasone propionate 50 2 spray intranasal DAILY 09/25/23 08/04/24 mcg/actuation nasal spray,suspension lactulose 10 gram/15 mL oral 15 ml PO DAILY PRN Constipation 09/25/23 08/04/24 solution pregabalin 150 mg capsule 150 mg PO DAILY 09/25/23 08/04/24 tizanidine 4 mg tablet 4 mg PO BID PRN Spasms 09/25/23 08/04/24 cetirizine 10 mg tablet 10 mg PO DAILY PRN allergies 05/21/24 08/04/24 insulin aspart U-100 100 unit/mL 18 unit SUBCUT TID 05/21/24 08/04/24 (3 mL) subcutaneous pen (Novolog FlexPen U-100 Insulin aspart) polyethylene glycol 3350 17 gram 17 g PO DAILY PRN Constipation 05/21/24 08/04/24 oral powder packet (Miralax) valacyclovir 500 mg tablet 500 mg PO BID PRN viral 05/21/24 08/04/24 glipizide 10 mg tablet 10 mg PO TID 06/22/24 08/04/24 insulin glargine 100 unit/mL (3 15 unit SUBCUT QPM 06/22/24 08/04/24 mL) subcutaneous pen semaglutide 1 mg/dose (4 mg/3 mL) 1 mg SUBCUT Q7D 06/22/24 08/04/24 subcutaneous pen injector tamsulosin 0.4 mg capsule 0.8 mg PO DAILY 06/22/24 08/04/24 trazodone 100 mg tablet 100 mg PO QPM 06/22/24 08/04/24 Previous Rx's ?Medication ?Instructions ?Recorded aspirin 81 mg tablet,delayed 81 mg PO QAM 30 days #30 tabs 03/03/21 release ([place] Low Dose Aspirin) lorazepam 1 mg tablet 0.5 - 1 mg (0.5 - 1 x 1 mg) PO Q6H 12/10/23 PRN Severe Nausea #30 tabs ondansetron HCl 4 mg tablet 4 mg PO QID PRN Nausea/vomiting 12/10/23 #30 tabs prochlorperazine maleate 10 mg 10 mg PO Q4H PRN Mild Nausea #30 12/10/23 tablet (Compazine) tabs mupirocin 2 % topical ointment 1 applic topical BID 2 weeks #22 02/20/24 grams apixaban 2.5 mg tablet (Eliquis) 2.5 mg PO BID #180 tabs 05/21/24 duloxetine 30 mg capsule,delayed 30 mg PO DAILY #30 caps 06/23/24 release sucralfate 1 gram tablet (Carafate) 1 g PO Q6H 4 weeks #112 tabs 05/29/25 Allergies Allergy/AdvReac Type Severity Reaction Status Date / Time No Known Allergies Allergy Verified 08/04/24 06:34 Review of Systems Const: Denies: fever(s) or chills Card: Denies: chest pain Resp: Denies: dyspnea GI: Reports: abdominal pain (Epigastric), nausea, vomiting and heartburn : Denies: dysuria, urinary frequency or urinary urgency Musc: Denies: neck pain or back pain Skin/Breast: Denies: rash PFSH ED PFSH: Medical History Myeloma Upper respiratory infection Rhabdomyolysis Atrial fibrillation with rapid ventricular response Cellulitis and abscess of hand History of atrial fibrillation Chronic kidney disease Diabetic peripheral neuropathy associated with type 2 diabetes 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 of other part of right foot limited to breakdown of skin Stroke Lumbar paraspinal muscle spasm Glenohumeral arthritis Lumbar disc disease with radiculopathy 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 Pain management contract signed Degenerative lumbar disc Hyperlipidemia Hypertension Diabetes mellitus Surgical History 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 S/P dialysis catheter insertion Hx of appendectomy Hx of foot surgery Hx of cholecystectomy Family History Son Acute leukemia Denies family history of Anesthesia complication Social History Smoking and tobacco/nicotine status: never used tobacco/nicotine Alcohol intake: never Substance/Drug Use: never Caregiver/support person: Yes Lives independently: Yes Physical Exam Const: GENERAL APPEARANCE: cooperative ORIENTATION/CONSCIOUSNESS: Yes awake, Yes oriented to person, Yes oriented to place and Yes oriented to time HENMT: COMMON NORMALS: normocephalic, atraumatic and hearing grossly normal bilaterally HEAD & SCALP: normocephalic and atraumatic Resp: COMMON NORMALS: normal respiratory effort, No retractions, No use of accessory muscles and clear to auscultation bilaterally AUSCULTATION: clear to auscultation bilaterally Cardio: COMMON NORMALS: regular rate, regular rhythm and No murmurs present (Cardio) RATE: regular rate RHYTHM: regular rhythm GI: COMMON NORMALS: Soft to palpation and No hepatosplenomegaly present AUSCULTATION: Yes normoactive bowel sounds PALPATION: Yes Soft to palpation, No Tenderness to palpation present (GI), No Guarding due to palpation present (GI) and Yes No hepatosplenomegaly present Extremity: COMMON NORMALS: normal to inspection, capillary refill normal, no clubbing, cyanosis or edema, no calf tenderness and no pedal edema Neuro: SENSORIUM/ORIENTATION: Yes oriented to person, Yes oriented to place and Yes oriented to time Skin: COMMON NORMALS: no rashes or lesions noted GENERAL SKIN EXAM: no rashes or lesions noted Course Vital Signs: Vital signs: Vital Signs Temperature 97.4 F L 10/08/24 09:18 Pulse Rate 87 10/08/24 13:07 Respiratory Rate 17 10/08/24 09:18 Blood Pressure 116/72 10/08/24 13:07 Pulse Oximetry 97 10/08/24 13:07 Oxygen Delivery Me thod Room Air 10/08/24 09:18 MDM - Chest Pain Medical Decision Making EKG does not show any acute changes. Cardiac enzymes trending negative discharge home set up outpatient Lexiscan sestamibi stress test. His description of symptoms sound more GI in nature he is already on pantoprazole give Carafate to use as needed if stress test negative encouraged him to follow-up with primary care doctor for further evaluate including possible EGD Medical Records I reviewed the patient's medical records. Lab Data I reviewed the patient's lab results. 10/08/24 09:40 10/08/24 10:40 Radiology Impressions Chest X-Ray 10/08/24 09:16 Impression: Negative chest. Laboratory Results WBC 4.72 10^3/uL (3.29-11.43) 10/08/24 09:40 RBC 3.72 10^6/uL (3.85-5.65) L 10/08/24 09:40 Hgb 12.30 g/dL (11.27-16.99) 10/08/24 09:40 Hct 36.5 % (37-53) L 10/08/24 09:40 MCV 98.1 fl (82-101) 10/08/24 09:40 MCH 33.1 pg (27-33) H 10/08/24 09:40 MCHC 33.7 g/dL (30-55) 10/08/24 09:40 RDW 13.4 % (12.1-15.1) 10/08/24 09:40 Plt Count 265 10^3/cmm (157-399) 10/08/24 09:40 MPV 9.4 fL (7.4-10.4) 10/08/24 09:40 Neut % (Auto) 60.6 % 10/08/24 09:40 Lymph % (Auto) 23.1 % 10/08/24 09:40 [place] % (Auto) 10.6 % 10/08/24 09:40 Eos % (Auto) 4.7 % 10/08/24 09:40 Baso % (Auto) 0.4 % 10/08/24 09:40 Neut # (Auto) 2.86 10^3/uL (1.8-7.7) 10/08/24 09:40 Lymph # (Auto) 1.1 10^3/uL (0.8-4.8) 10/08/24 09:40 [place] # (Auto) 0.5 10^3/uL (0.2-0.9) 10/08/24 09:40 Eos # (Auto) 0.2 10^3/uL (0.0-0.8) 10/08/24 09:40 Baso # (Auto) 0.0 10^3/uL (0.0-0.1) 10/08/24 09:40 Nucleated RBC % (auto) 0 % 10/08/24 09:40 Nucleated RBCs # 0.0 /100WBC 10/08/24 09:40 Sodium 134 mmol/L (136-145) L 10/08/24 10:40 Potassium 4.1 mmol/L (3.5-5.1) 10/08/24 10:40 Chloride 104 mmol/L (98-107) 10/08/24 10:40 Carbon Dioxide 20 mmol/L (22-29) L 10/08/24 10:40 Anion Gap 14.1 (5-19) 10/08/24 10:40 BUN 34 mg/dL (8-23) H 10/08/24 10:40 Creatinine 2.1 mg/dL (0.7-1.2) H 10/08/24 10:40 GFR Calculation 32.0 mL/min (90-130) L 10/08/24 10:40 Glucose 111 mg/dL (65-115) 10/08/24 10:40 Calculated Osmolality 286 mOsm/kg (285-295) 10/08/24 10:40 Calcium 8.9 mg/dL (8.5-10.5) 10/08/24 10:40 Total Bilirubin 0.4 mg/dL (0.15-1.2) 10/08/24 10:40 AST 21 U/L (0-40) 10/08/24 10:40 ALT 26 U/L (0-41) 10/08/24 10:40 Alkaline Phosphatase 66 U/L (40-130) 10/08/24 10:40 Troponin T Baseline 37 ng/L (0-15) H 10/08/24 09:40 Troponin T 120 Minute 32.01 ng/L (0-15) H 10/08/24 12:05 Delta Troponin T -4.99 ABS# (0-10) L 10/08/24 12:05 Total Protein 8.9 g/dL (6.6-8.7) H 10/08/24 10:40 Albumin 3.6 g/dL (3.5-5.2) 10/08/24 10:40 Globulin 5.3 g/dL (1.3-4.6) H 10/08/24 10:40 All radiology interpretation(s) finalized by discharge EKG Data EKG 1: Interpretation: Initial EKG 10/08/2024 9:16 AM sinus rhythm rate of 95 borderline first-degree AV block PA interval 204. No acute ST changes. No acute changes from 06/22/2024 Discharge Plan Discharge Patient Disposition: Home Clinical Impression: Atypical chest pain Condition: Stable Prescriptions: New sucralfate [Carafate] 1 gram tablet 1 g PO Q6H 28 Days Qty: 112 0RF No Action valacyclovir 500 mg tablet 500 mg PO BID PRN (Reason: viral) Rx Instructions: Continue 3 months post treatment for prevention of viral infection. Eliquis 2.5 mg tablet 2.5 mg PO BID Qty: 180 3RF mupirocin 2 % ointment 1 applic topical BID 14 Days Qty: 22 2RF cholecalciferol (vitamin D3) 25 mcg (1,000 unit) Tablet 50 mcg PO QAM polyethylene glycol 3350 [Miralax] 17 gram powder in packet 17 g PO DAILY PRN (Reason: Constipation) aspirin [[place] Low Dose Aspirin] 81 mg Tablet,Delayed Release (Dr/Ec) 81 mg PO QAM 30 Days Qty: 30 3RF pantoprazole 40 mg tablet,delayed release (DR/EC) 40 mg PO BID tramadol 50 mg tablet 50 mg PO .Q4-6H PRN (Reason: pain) ondansetron HCl 4 mg Tablet 4 mg PO QID PRN (Reason: Nausea/vomiting) Qty: 30 3RF prochlorperazine maleate [Compazine] 10 mg tablet 10 mg PO Q4H PRN (Reason: Mild Nausea) Qty: 30 3RF lorazepam 1 mg tablet 0.5 - 1 mg PO Q6H PRN (Reason: Severe Nausea) Qty: 30 3RF glipizide 10 mg Tablet 10 mg PO TID tamsulosin 0.4 mg Capsule 0.8 mg PO DAILY trazodone 100 mg Tablet 100 mg PO QPM insulin glargine 100 unit/mL (3 mL) Insulin Pen 15 unit SUBCUT QPM semaglutide 1 mg/dose (4 mg/3 mL) Pen Injector 1 mg SUBCUT Q7D duloxetine 30 mg Capsule,Delayed Release(Dr/Ec) 30 mg PO DAILY Qty: 30 0RF B complex-vitamin C-folic acid 1 mg Tablet 1 tab PO DAILY omega-3 fatty acids 1,000 mg Capsule 2,000 mg PO BID carboxymethylcellulose sodium 0.5 % Drops 2 drp ophthalmic (eye) TID PRN (Reason: redness) lidocaine 5 % Adhesive Patch,Medicated 1 patch topical DAILY PRN (Reason: Pain) Rx Instructions: on for 12 hours off for 12 hours glucose 4 gram Tablet,Chewable 4 g PO Q15M PRN (Reason: for low blood sugar) Rx Instructions: until symptoms of low blood sugar are controlled docusate sodium [Colace] 100 mg Capsule 200 mg PO BID insulin aspart U-100 [Novolog FlexPen U-100 Insulin] 100 unit/mL (3 mL) insulin pen 18 unit SUBCUT TID Rx Instructions: sliding scale atorvastatin 80 mg Tablet 80 mg PO BEDTIME tizanidine 4 mg Tablet 4 mg PO BID PRN (Reason: Spasms) fluticasone propionate 50 mcg/actuation [place],Suspension 2 spray INTRANASAL DAILY Rx Instructions: administer into each nostril lactulose 10 gram/15 mL Solution 15 ml PO DAILY PRN (Reason: Constipation) pregabalin 150 mg Capsule 150 mg PO DAILY diclofenac sodium 1 % Gel 2 g TOPICAL QID Rx Instructions: apply to single elbow, wrist or hand; for hand includes palm/fingers/back of hand cetirizine 10 mg tablet 10 mg PO DAILY PRN (Reason: allergies) Discharge Orders: Discharge ED (Routine); Ordered 10/08/24 Ordered By: Spencer Naylor Referrals: Pam Diaz MD [Primary Care Provider, Family Practice] Patient Instructions: Opioid Safety, Pain Management Activity Restrictions/Additional Instructions: Thank you for choosing [facility] for your healthcare needs today. It is very important that you follow up as instructed or that you return to the Emergency Department should you have concerns or if your condition changes or worsens in any way. You were seen in the emergency room with complaints of chest discomfort. Cardiac enzymes and EKG does not show any signs of acute coronary syndrome. You do have some risk factors however. Recommend that you continue to take your aspirin 81 mg daily such up for outpatient Lexiscan sestamibi stress test. Return to the emergency room you have further problems. Print Language: American Coding Level of Care Code ED Wildlife Policy Professional for Nirmal Uribe
[2024-10-08 09:18] VITALS: BP 94/65; PULSE 98; RESP 17; TEMP 36.3; O2SAT 97; BMI 30.7
[2024-10-08 09:48] LABS: Basophils % 0.4 %; Eosinophils # 0.2 10^3/uL (0.0-0.8); Eosinophils % 4.7 %; Hematocrit 36.5 % (37-53); Lymphocytes # 1.1 10^3/uL (0.8-4.8); Lymphocytes % 23.1 %; Mean Corpuscular HGB Conc 33.7 g/dL (30-55); Mean Corpuscular Hemoglobin 33.1 pg (27-33); Mean Corpuscular Volume 98.1 fl (82-101); Mean Platelet Volume 9.4 fL (7.4-10.4); Monocytes # 0.5 10^3/uL (0.2-0.9); Monocytes % 10.6 %; Neutrophils # 2.86 10^3/uL (1.8-7.7); Neutrophils % 60.6 %; Nucleated Red Blood Cells % 0 %; Platelet Count 265 10^3/cmm (157-399); Red Blood Count 3.72 10^6/uL (3.85-5.65); Red Cell Distribution Width 13.4 % (12.1-15.1); White Blood Count 4.72 10^3/uL (3.29-11.43)
[2024-10-08 10:11] LABS: Troponin(5th) Baseline 37 ng/L (0-15)
[2024-10-08] MEDS: aspirin 81 mg Chew Tablet 324 MG PO (10:49)
[2024-10-08 10:51] VITALS: BP 116/65; PULSE 90; O2SAT 98
[2024-10-08 11:01] LABS: Alanine Aminotransferase 26 U/L (0-41); Albumin Level 3.6 g/dL (3.5-5.2); Alkaline Phosphatase 66 U/L (40-130); Anion Gap 14.1 (5-19); Aspartate Amino Transferase 21 U/L (0-40); Blood Urea Nitrogen 34 mg/dL (8-23); Calcium 8.9 mg/dL (8.5-10.5); Carbon Dioxide 20 mmol/L (22-29); Chloride 104 mmol/L (98-107); Creatinine Clr Calc Pharmacy 40.2915; Globulin 5.3 g/dL (1.3-4.6); Glucose 111 mg/dL (65-115); Osmolality Calculated 286 mOsm/kg (285-295); Potassium 4.1 mmol/L (3.5-5.1); Sodium 134 mmol/L (136-145); Total Bilirubin 0.4 mg/dL (0.15-1.2); Total Protein 8.9 g/dL (6.6-8.7)
--- NOTE | 2024-10-08 11:02 | ECG_ITS ---
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
[2024-10-08] MEDS: acetaminophen 500 mg Tablet 1000 MG PO (11:20)
[2024-10-08 12:38] LABS: Troponin 5 2HR 32.01 ng/L (0-15)
[2024-10-08 12:44] LABS: Troponin 5 2HR Delta -4.99 ABS# (0-10)
[2024-10-08 13:07] VITALS: BP 116/72; PULSE 87; O2SAT 97
== END 2024-10-08 13:08 | disposition home or self-care (01) ==
PROVIDERS: Emergency Provider Family Medicine; PCP Family Medicine
DX: R07.89 Other chest pain (principal); Z79.01 Long term (current) use of anticoagulants; Z79.4 Long term (current) use of insulin; E78.5 Hyperlipidemia, unspecified; E11.22 Type 2 diabetes mellitus with diabetic chronic kidney disease; I12.9 Hypertensive chronic kidney disease with stage 1 through stage 4 chronic kidney disease, or unspecified chronic kidney disease; N18.9 Chronic kidney disease, unspecified
CPT/HCPCS: 36415; 71045; 80053; 84484; 85025; 93005; 99285; J9999

== ENCOUNTER → 2024-11-03 06:53 | Outpatient (BNVA) | payer OTHER, SELFPAY | PROVIDERS: PCP Family Medicine; Visit Provider Podiatrist Foot & Ankle Surgery | DX: E11.8 Type 2 diabetes mellitus with unspecified complications (principal); E11.42 Type 2 diabetes mellitus with diabetic polyneuropathy; I73.9 Peripheral vascular disease, unspecified; Z89.421 Acquired absence of other right toe(s); Q66.71 Congenital pes cavus, right foot; Q66.72 Congenital pes cavus, left foot; Z79.4 Long term (current) use of insulin | CPT/HCPCS: 99213 ==

== ENCOUNTER → 2024-11-26 15:26 | Outpatient (BNVA) | payer OTHER, SELFPAY | PROVIDERS: PCP Family Medicine; Visit Provider Internal Medicine | DX: R06.02 Shortness of breath (principal); E78.2 Mixed hyperlipidemia; M51.16 Intervertebral disc disorders with radiculopathy, lumbar region; Z79.4 Long term (current) use of insulin; I48.91 Unspecified atrial fibrillation; Z79.01 Long term (current) use of anticoagulants; Z79.82 Long term (current) use of aspirin; I12.9 Hypertensive chronic kidney disease with stage 1 through stage 4 chronic kidney disease, or unspecified chronic kidney disease; N18.9 Chronic kidney disease, unspecified; E11.22 Type 2 diabetes mellitus with diabetic chronic kidney disease | CPT/HCPCS: 99213 ==

== ENCOUNTER 2024-12-22 09:53 | Emergency (ER) | payer OTHER, SELFPAY ==
--- OUTSIDE RECORDS SUMMARY | 2023-07-25 12:00 | XMS_ITS ---
Author Organization [facility] Address [address] [place] [address] Care Team Providers Care Cherry Cutter Name Role Phone Pam Schultz MD Primary Care Provider ERYN Gay Unavailable [phone] Nick Hawkins Unavailable Unavailable REASON FOR VISIT 3 months Encounters Encounter Location Date Provider Diagnosis [facility] [address] [facility] [place] [address] 07/25/2023 ERYN OCASIO Plan Of Treatment No Information Progress Notes * Wayne BLAKE SDOB: [birth year] (64 yo M)Acc No.[id number]:07/25/2023 Progress Notes Patient: Wayne MACIAS Provider: Mik OCASIO MD :1960 A ge:62 Y S ex:Male Date:07/25/2023 Address:[address] [place], [place] [id number] Pcp:Pam Schultz MD Subjective: * Chief Complaints: * 1 . 3 months. * Medical History: Objective: * Vitals: Assessment: Plan: * Treatment: * Billing Information: * Visit Code: * Procedure Codes: * Electronic signature of AUST IN MD AMARJIT on 12/23/2024 at 02:14 PM CDT Sign off status: Pending * Provider: Mik OCASIO MD Date: 0 07/25/2023 Generated for Mylene taylor/Faxing/eTransmitting on: 0 12/23/2024 02:14 PM CDT
--- OUTSIDE RECORDS SUMMARY | 2024-09-10 02:40 | XMS_ITS ---
Author Organization [facility] Address [address] [place], [place] [id number] Care Team Providers Care Lunchroom Food Service Supervisor Name Role Phone [facility] Primary Care Provider Beatriz kam Alanis MD, Harry Unavailable [phone] [place], [place] Unavailable Unavailable Allergies Allergen (clinical drug ingredient) Drug/Non Drug Allergy documented on EMR Reaction Allergy Type Onset Date Status adhesive tape (uncoded) Unknown Allergy Active gabapentin gabapentin Unknown Drug Allergy Activ e metformin metFORMIN Unknown Drug Allergy Active REASON FOR VISIT Patient states he is here for low back pain. Medications Medication SIG (Take, Route, Frequency, Duration) Notes Start Date End Date Status aspirin 81 mg 1 tab(s) orally once a day; Duration: 30 day(s) Active amLODIPine 5 mg 1 tab(s) orally once a day; Duration: 30 day(s) Active DULoxetine 30 mg 1 cap orally Q12H Active Tylenol 8 HR Arthritis Pain 650 mg 1-2 tab(s) orally every 8 hours, as needed Active atorvastatin 80 mg 1 tab(s) orally once a day; Duration: 30 day(s) Active pantoprazole 40 mg 1 tab(s) orally 2 ti mes a day Active Ozempic 2 mg/1.5 mL (0.25 mg or 0.5 mg dose) as directed subcutaneously once a week Active Metoprolol Succinate ER 100 mg 1/2 tab(s) orally once a day Active tamsulosin 0.4 mg 1 cap(s) orally once a day; Duration: 30 day(s) Active Plavix 75 mg 1 tab(s) orally once a day Active Lantus 100 units/mL 0 subcutaneously Active hydrALAZINE 25 mg 1 tab(s) orally 4 ti mes a day; Duration: 30 day(s) 10/30/2023 Active glipiZIDE 10 mg 1 tab(s) orally 2 ti mes a day Active furosemide 40 mg 1 tab(s) orally once a day; Duration: 30 day(s) 10/30/2023 Active bisacodyl 5 mg 2 tab(s) orally once a day, as needed Active Social History Tobacco Use: Social History Observation Description Date Details (start date - stop date) Never Smoker NA - NA Tobacco use: Question Answer Notes : nonsmoker AUDIT-C (Standard) Question Answer Notes Did you have a drink containing alcohol in the p ast year? No Points 0 Interpretation Negative Encounters Encounter Location Date Provider Diagnosis [facility], [address] [id number] 09/10/2024 Harry Alanis Vertebrogenic low ba ck pain M54.51 ; Other chronic pain G89.29 ; Diabetes mellitus due to underlying condition with diabetic neuropathy, unspecified E08.40 and Essential (primary) hypertension I10 Assessments Encounter Date Diagnosis (ICD Code) Assessment Notes Treatment Notes Treatment Clinical Notes Section Notes 09/10/2024 Vertebrogenic low back pain (ICD-10 - M54.51) Chronic axial lumbosacral spine pain. 09/10/2024 Other chronic pain (ICD-10 - G89.29) Patient has recently tapered off his pain medication. 09/10/2024 Diabetes mellitus due to underlying condition with diabetic neuropathy, unspecified (ICD-10 - E08.40) Patient reports some benefit with use of duloxetine for diabetic neuropathy symptoms. Patient to discuss management of this medication [facility]. Plan to continue in the interim. 09/10/2024 Essential (primary) hypertension (ICD-10 - I10) Education sheet given at today's visit; patient to address with PCP. 09/10/2024 Other The service was provided by [facility], as part of the ongoing care plan established by Harry Alanis MD, who was present in the office for direct supervision during the encounter. Patient was provided with a letter at today's visit informing patient that this clinic is closing due to Dr. Alanis's care home; see scanned document. Terminal prescriptions were given to the patient along with tapering instructions. Plan Of Treatment Medication Medication Name Sig Start Date Stop Date Notes DULoxetine 30 mg 1 cap orally Q12H Treatment Notes Assessment Notes Vertebrogenic low back pain Chronic axia l lumbosacral spine pain. Other chronic pain Patient has recently tapered off his pain medication. Diabetes mellitus due to und erlying condition with diabetic neuropathy, unspecified Patient reports some benefit with use of duloxetine for diabetic neuropathy symptoms. Patient to discuss management of this medication with his [facility]. Plan to continue in the interim. Essential (primary) hypertension Educati on sheet given at today's visit; patient to address with PCP. Other The service was provided by [facility], as part of the ongoing care plan established by Harry Alanis MD, who was present in the office for direct supervision during the encounter. Patient was provided with a letter at today's visit informing patient that this clinic is closing due to Dr. Alanis's care home; see scanned document. Terminal prescriptions were given to the patient along with tapering instructions. Progress Notes * Wayne BLAKE SDOB: [birth year] (64 yo M)Acc No.[id number]:09/10/2024 Patient: Wayne MACIAS Provider: Naomi Alanis :1960 A ge:63 Y S ex:Male Date:09/10/2024 Address:[address] [place], [place] [id number] Pcp:[facility] Subjective: * Chief Complaints: * 1 . Patient states he is here for low back pain.. * HPI: L umbar Spine: 63 year old male presents with c/o pain f or c hronic duration i n the bilateral low back. This pain is described as intermittent. This pain occasionally extends into the right hip. The back pain is aggravated by lying flat in bed and by bending over. This pain is somewhat alleviated with daily stretching and by sitting in a reclined position with elevated feet. Denies : injury:. Denies : previous surgery:. I nterventional: Left SI joint local anesthetic / steroid injection: o n 02/07/22 with e xcellent (100%) i nitial diagnostic / local anesthetic efficacy, to include left sacral axial pain r esolution plus left lower extremity symptom improvement, for ~ 5 hours and t hen a subsequent s hort - term s teroid benefit (2 days) thereafter (a prior?updated / amended / clarified patient report). Medial branch blocks: b ilateral L4 medial branch, bilateral L5 dorsal ramus on 03/07/22 with excellent benefit to include low lumbar pain resolution plus lower extremity pain resolution - p atient had stated a 100% decrease in pain for 15 hours post procedure in the affected area plus left buttock, hip, lateral thigh, anterior leg, and foot symptom resolution during that time and patient reported great improvement in ROM and ADLs, such as putting up wood, during that time (patient had since stated some maintained benefits post the blocks and as of 03/31/24 the left side has not been very painful since then). P revious Therapy: Previous therapy: h ome PT exercises / stretching therapy with some benefit; aqua therapy with some benefit; topical agent therapy with some benefit; chiropractic therapy with some benefit; acupuncture therapy with some benefit; TENS unit therapy with history of benefit; physical therapy with history of no benefit (2018); injection therapy performed at [facility] pain clinic with history of minimal benefit ([phone]) [patient previously described the prior procedures - were noted to be consistent with LESI as well as facet joint procedure]; injection by Dr. Ervin for left knee pain with history of good benefit (04/2024); prior injection therapy via this facility has included lumbar and sacral interventions (see prior documentation). Medication history: Z anaflex 4 mg; Lidocaine 5% patch; Ultram 50 mg; Lyrica 150 mg once daily (good benefit); Percocet 7.5/325. M edications: Cymbalta (duloxetine) 3 0 mg, 1 cap, orally, Q12H, 28 days, 56, Refills 0. Notes: Prescriptions given (2) on 07/16/24. Patient reports * benefit with * quantity and * refills.Last fill date: *. tramadol (Ultram) 5 0 mg, orally, 56, 1 tab, Q4-6H prn pain (max 2/day; hold within 4H of planned sleep), 28 days, Refills=0.Notes: Prescriptions given (2) on 05/21/24; discontinued 07/16/24. N on Compliance/Failure to Follow Treatment Agreement: No-Show to Appointments: 0 06/12/22. Abnormal chromatography / mass spectrometry results: o n 10/30/23. 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 * Surgical History: A ppendectomy, performed at [facility], 2016, Cataract surgeries, bilateral, performed at [facility] in [place], [place], 2018, Right eye surgery, performed at [facility] in [place], [place] by Dr. Barfield, 02/22/22, Foot surgery, right, performed at [facility] by Dr. Charlton, 03/2023, Bone marrow aspiration, performed at [facility] in [place], [place], 09/2023. * Hospitalization/Major Diagno stic Procedure: T esting for episodes of passing out (unknown reason), treated at [facility], 11/2021, Stroke, treated at [facility] 2020, Right foot - stung by fish while swimming in the ocean, treated in [facility], 04/16/22, Onset of vertigo after chiropractic treatment, treated at [facility], 12/2022, Sepsis, treated at [facility], 04/25/23-05/05/23, Congestive heart failure, treated at [facility], 09/2023, Dehydration and high blood sugar, treated at [facility], 10/2023, Low blood pressure, treated at [facility], 06/2024. * Medications: T aking amLODIPine 5 mg tablet 1 tab(s) orally once a day , Taking aspirin 81 mg delayed release tablet 1 tab(s) orally once a day , Taking atorvastatin 80 mg tablet 1 tab(s) orally once a day , Taking bisacodyl 5 mg delayed release tablet 2 tab(s) orally once a day, as needed , Taking DULoxetine 30 mg delayed release capsule 1 cap orally Q12H , Taking furosemide 40 mg tablet 1 tab(s) orally once a day , Taking glipiZIDE 10 mg tablet 1 tab(s) orally 2 times a day , Taking hydrALAZINE 25 mg tablet 1 tab(s) orally 4 times a day , Taking Lantus(insulin glargine) 100 units/mL solution 0 subcutaneously , Taking Metoprolol Succinate ER(metoprolol) 100 mg tablet, extended release 1/2 tab(s) orally once a day , Taking Ozempic(semaglutide) 2 mg/1.5 mL (0.25 mg or 0.5 mg dose) solution as directed subcutaneously once a week , Taking pantoprazole 40 mg delayed release tablet 1 tab(s) orally 2 times a day , Taking Plavix(clopidogrel) 75 mg tablet 1 tab(s) orally once a day , Taking tamsulosin 0.4 mg capsule 1 cap(s) orally once a day , Taking Tylenol 8 HR Arthritis Pain(acetaminophen) 650 mg tablet, extended release 1-2 tab(s) orally every 8 hours, as needed * Allergies: g abapentin, adhesive tape, metFORMIN. Objective: Therapeutic Interventions: Assessment: * Assessment: 1. V ertebrogenic low back pain - M54.51 (Primary) 2 . O ther chronic pain - G89.29 3 . D iabetes mellitus due to underlying condition with diabetic neuropathy, unspecified - E08.40 4 . E ssential (primary) hypertension - I10 ? Plan: * Treatment: 2. O ther chronic pain Notes: Patient has recently tapered off his pain medication. 3. D iabetes mellitus due to underlying condition with diabetic neuropathy, unspecified Notes: Patient reports some benefit with use of duloxetine for diabetic neuropathy symptoms. Patient to discuss management of this medication with [facility]. Plan to continue in the interim. 4. E ssential (primary) hypertension Notes: Education sheet given at today's visit; patient to address with PCP. 5. O thers Continue DULoxetine delayed release capsule, 30 mg, 1 cap, orally, Q12H. Notes: The service was provided by [facility], [facility] [place] established by Harry Alanis MD, who was present in theoffice for direct supervision during the encounter. Patient was provided with a letter at today's visit informing patient that thisclinic is closing due to Dr. Alanis's care home; see scanned document. Terminal prescriptions were given to the patient along with taperinginstructions.? * Preventive Medicine: Counseling: P ain Management: Follow-up Plan documented: Y es Pain Screenin .5 B P Management LIFESTYLE RECOMMENDATION: Bill hurt education regarding hypertension - patient education sheet given on 07/16/2024 * Images: * Electronic signature of Tyrone Alanis MD on 12/23/2024 at 02:14 PM CDT Sign off status: Pending * Provider: Naomi Alanis Date: 0 09/10/2024 Generated for Mylene taylor/Demetrio/Joanna on: 0 12/23/2024 02:14 PM CDT History and Physical Notes * HPI (History of Present Illness) Category Sub-Category Detail Notes Category Not es Lumbar Spine injury: pain in the bilateral low back. This pain is described as intermittent. This pain occasionally extends into the right hip. The back pain is aggravated by lying flat in bed and by bending over. This pain is somewhat alleviated with daily stretching and by sitting in a reclined position with elevated feet previous surgery: Medications Cymbalta (duloxetine) 30 mg, 1 c ap, orally, Q12H, 28 days, 56, Refills 0. Notes: Prescriptions given (2) on 07/16/24. Patient reports * benefit with * quantity and * refills. Last fill date: * tramadol (Ultram) 50 mg, orally, 56, 1 tab, Q4-6H prn pain (max 2/day; hold within 4H of planned sleep), 28 days, Refills=0. Notes: Prescriptions given (2) on 05/21/24; discontinued 07/16/24 Interventional Left SI joint local anesthetic / steroid injection: on 02/07/22 with excellent (100%) initial diagnostic / local anesthetic efficacy, to include left sacral axial pain resolution plus left lower extremity symptom improvement, for ~ 5 hours and then a subsequent short - term steroid benefit (2 days) thereafter (a prior updated / amended / clarified patient report) Medial branch blocks: bilateral L4 media l branch, bilateral L5 dorsal ramus on 03/07/22 with excellent benefit to include low lumbar pain resolution plus lower extremity pain resolution - patient had stated a 100% decrease in pain for 15 hours post procedure in the affected area plus left buttock, hip, lateral thigh, anterior leg, and foot symptom resolution during that time and patient reported great improvement in ROM and ADLs, such as putting up wood, during that time (patient had since stated some maintained benefits post the blocks and as of 03/31/24 the left side has not been very painful since then) Previous Therapy Previous therapy: home PT exerc ises / stretching therapy with some benefit; aqua therapy with some benefit; topical agent therapy with some benefit; chiropractic therapy with some benefit; acupuncture therapy with some benefit; TENS unit therapy with history of benefit; physical therapy with history of no benefit (2018); injection therapy performed at [facility] pain clinic with history of minimal benefit ([id number]) [patient previously described the prior procedures - were noted to be consistent with LESI as well as facet joint procedure]; injection by Dr. Ervin for left knee pain with history of good benefit (04/2024); prior injection therapy via this facility has included lumbar and sacral interventions (see prior documentation) Medication history: Zanaflex 4 mg; Lidoc antwon 5% patch; Ultram 50 mg; Lyrica 150 mg once daily (good benefit); Percocet 7.5/325 Non Compliance/Failure to Fo llow Treatment Agreement No-Show to Appointments: 06/12/22 Abnormal chromatography / mass spectrome try results: on 10/30/23 Physical Examination Category Sub-Category Detail Notes Section Note s ENT Hearing: grossly intact Chest Shape and expansion: normal expa nsion, equal bilaterally, respirations even and unlabored Neurological Psychiatric: alert and conversant Musculoskeletal Gait: unsteady Outcome Assessment: Findings:: Negative, care pl an not required Dermatology Skin inspection: pink, warm, dry, and int act General General appearence: well groomed, well no urished Build: mildly obese Head: normocephalic Eyes Conjunctiva: without injection
[2024-12-22 10:07] VITALS: BP 69/57; PULSE 101; RESP 16; TEMP 36.8; O2SAT 99
[2024-12-22 10:17] LABS: Hematocrit 34.4 % (37-53); Hemoglobin 11.40 g/dL (11.27-16.99); Mean Corpuscular HGB Conc 33.1 g/dL (30-55); Mean Corpuscular Hemoglobin 32.7 pg (27-33); Mean Corpuscular Volume 98.6 fl (82-101); Nucleated Red Blood Cells % 0 %; Platelet Count 241 10^3/cmm (157-399); Red Blood Count 3.49 10^6/uL (3.85-5.65); White Blood Count 4.43 10^3/uL (3.29-11.43)
--- NOTE | 2024-12-22 10:18 | ECG_ITS ---
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 Measurements Intervals [place] Rate: 89 P: 33 UT: 222 QRS: -46 QRSD: 110 T: 46 QT: 371 QTc: 453 Interpretive Statements SINUS RHYTHM WITH FIRST DEGREE AV BLOCK LEFT ANTERIOR FASCICULAR BLOCK [QRS AXIS <= -45, QR IN I, RS IN II] SEPTAL MYOCARDIAL INFARCTION , OF INDETERMINATE AGE [40+ ms Q WAVE IN V1/V2] Compared to ECG 10/08/2024 11:02:01 Left anterior fascicular block now present Myocardial infarct finding now present Electronically Signed On 12-23-2024 21:42:57 CDT by Yo Pruitt M.D. [id number]
--- NOTE | 2024-12-22 10:19 | W.ED.GENADLT ---
HPI - General Adult General: Chief complaint: General Medical Stated complaint: va sent, light headed, n/v, low blood sugar Time Seen by Provider: 12/22/24 09:59 Source: patient Mode of arrival: ambulatory Limitations: no limitations History of Present Illness: 64-year-old male is sent here from the [place] for low blood sugar along with hypotension. Patient has a history of myeloma and anemia in the past. He is foregone any cancer treatments. Patient states that he feels funny when he is laying down or standing but he gets hypotensive when he stands and feels weak denies any falls denies any vomiting diarrhea. Related Data Home Medications ?Medication ?Instructions ?Recorded ?Confirmed cholecalciferol (vitamin D3) 25 50 mcg PO QAM 12/02/19 11/26/24 mcg (1,000 unit) tablet vitamin B complex-vitamin C-folic 1 tab PO DAILY 11/20/21 11/26/24 acid 1 mg tablet carboxymethylcellulose sodium 0.5 2 drp ophthalmic (eye) TID PRN 12/19/22 11/03/24 % eye drops redness glucose 4 gram chewable tablet 4 g PO Q15M PRN for low blood sugar 12/19/22 11/26/24 lidocaine 5 % topical patch 1 patch topical DAILY PRN Pain 12/19/22 11/26/24 omega-3 fatty acids 1,000 mg 2,000 mg PO BID 12/19/22 11/26/24 capsule pantoprazole 40 mg tablet,delayed 40 mg PO BID 04/25/23 11/26/24 release atorvastatin 80 mg tablet 80 mg PO BEDTIME 09/25/23 11/26/24 diclofenac sodium 1 % topical gel 2 g topical QID 09/25/23 11/03/24 fluticasone propionate 50 2 spray intranasal DAILY 09/25/23 11/26/24 mcg/actuation nasal spray,suspension lactulose 10 gram/15 mL oral 15 ml PO DAILY PRN Constipation 09/25/23 11/03/24 solution tizanidine 4 mg tablet 4 mg PO BID PRN Spasms 09/25/23 11/26/24 cetirizine 10 mg tablet 10 mg PO DAILY PRN allergies 05/21/24 11/26/24 insulin aspart U-100 100 unit/mL 18 unit SUBCUT TID 05/21/24 11/26/24 (3 mL) subcutaneous pen (Novolog FlexPen U-100 Insulin aspart) polyethylene glycol 3350 17 gram 17 g PO DAILY PRN Constipation 05/21/24 11/26/24 oral powder packet (Miralax) insulin glargine 100 unit/mL (3 15 unit SUBCUT QPM 06/22/24 11/26/24 mL) subcutaneous pen semaglutide 1 mg/dose (4 mg/3 mL) 1 mg SUBCUT Q7D 06/22/24 11/26/24 subcutaneous pen injector tamsulosin 0.4 mg capsule 0.8 mg PO DAILY 06/22/24 11/26/24 trazodone 100 mg tablet 100 mg PO QPM 06/22/24 11/26/24 Previous Rx's ?Medication ?Instructions ?Recorded aspirin 81 mg tablet,delayed 81 mg PO QAM 30 days #30 tabs 03/03/21 release (Molina Low Dose Aspirin) lorazepam 1 mg tablet 0.5 - 1 mg (0.5 - 1 x 1 mg) PO Q6H 12/10/23 PRN Severe Nausea #30 tabs ondansetron HCl 4 mg tablet 4 mg PO QID PRN Nausea/vomiting 12/10/23 #30 tabs prochlorperazine maleate 10 mg 10 mg PO Q4H PRN Mild Nausea #30 12/10/23 tablet (Compazine) tabs mupirocin 2 % topical ointment 1 applic topical BID 2 weeks #22 02/20/24 grams apixaban 2.5 mg tablet (Eliquis) 2.5 mg PO BID #180 tabs 05/21/24 duloxetine 30 mg capsule,delayed 30 mg PO DAILY #30 caps 06/23/24 release Allergies Allergy/AdvReac Type Severity Reaction Status Date / Time No Known Allergies Allergy Verified 11/26/24 16:04 FOR[facility]LY [facility] ED FORMER[facility]: Medical History (Updated 12/22/24 @ 13:02 by Sakshi Henderson MD) Myeloma Upper respiratory infection Rhabdomyolysis Atrial fibrillation with rapid ventricular response Cellulitis and abscess of hand History of atrial fibrillation Chronic kidney disease Diabetic peripheral neuropathy associated with type 2 diabetes 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 of other part of right foot limited to breakdown of skin Stroke Lumbar paraspinal muscle spasm Glenohumeral arthritis Lumbar disc disease with radiculopathy correction (current) use of opiate analgesic Pain management contract signed Degenerative lumbar disc Hyperlipidemia Hypertension Diabetes mellitus Surgical History 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 S/P dialysis catheter insertion Hx of appendectomy Hx of foot surgery Hx of cholecystectomy Family History Son Acute leukemia Denies family history of Anesthesia complication Social History Smoking and tobacco/nicotine status: never used tobacco/nicotine Alcohol intake: never Substance/Drug Use: never Caregiver/support person: Yes Lives independently: Yes Course Vital Signs: Vital signs: Vital Signs Temperature 98.2 F 12/22/24 10:07 Pulse Rate 86 12/22/24 12:42 Respiratory Rate 16 12/22/24 10:07 Blood Pressure 131/62 12/22/24 12:42 Pulse Oximetry 99 12/22/24 12:19 Oxygen Delivery Me thod Room Air 12/22/24 12:19 MDM - General Adult Medical Decision Making Patient presents here with orthostatic hypotension likely from some dehydration his blood pressure here is improved with IV fluids his symptoms have improved as well he is wanting to go home I feel he is stable for discharge follow-up with PCP return if worsening. Medical Records I reviewed the patient's medical records. Lab Data I reviewed the patient's lab results. 12/22/24 10:11 12/22/24 10:11 Laboratory Results WBC 4.43 10^3/uL (3.29-11.43) 12/22/24 10:11 RBC 3.49 10^6/uL (3.85-5.65) L 12/22/24 10:11 Hgb 11.40 g/dL (11.27-16.99) 12/22/24 10:11 Hct 34.4 % (37-53) L 12/22/24 10:11 MCV 98.6 fl (82-101) 12/22/24 10:11 MCH 32.7 pg (27-33) 12/22/24 10:11 MCHC 33.1 g/dL (30-55) 12/22/24 10:11 RDW 13.8 % (12.1-15.1) 12/22/24 10:11 Plt Count 241 10^3/cmm (157-399) 12/22/24 10:11 MPV 9.1 fL (7.4-10.4) 12/22/24 10:11 Neut % (Auto) 61.5 % 12/22/24 10:11 Lymph % (Auto) 24.4 % 12/22/24 10:11 Ritchie % (Auto) 8.4 % 12/22/24 10:11 Eos % (Auto) 4.7 % 12/22/24 10:11 Baso % (Auto) 0.5 % 12/22/24 10:11 Neut # (Auto) 2.73 10^3/uL (1.8-7.7) 12/22/24 10:11 Lymph # (Auto) 1.1 10^3/uL (0.8-4.8) 12/22/24 10:11 Ritchie # (Auto) 0.4 10^3/uL (0.2-0.9) 12/22/24 10:11 Eos # (Auto) 0.2 10^3/uL (0.0-0.8) 12/22/24 10:11 Baso # (Auto) 0.0 10^3/uL (0.0-0.1) 12/22/24 10:11 Nucleated RBC % (auto) 0 % 12/22/24 10:11 Nucleated RBCs # 0.0 /100WBC 12/22/24 10:11 PT 14.30 SECONDS (12.1-14.9) 12/22/24 10:11 INR 1.04 (0.8-1.2) 12/22/24 10:11 Sodium 132 mmol/L (136-145) L 12/22/24 10:11 Potassium 4.5 mmol/L (3.5-5.1) 12/22/24 10:11 Chloride 103 mmol/L (98-107) 12/22/24 10:11 Carbon Dioxide 19 mmol/L (22-29) L 12/22/24 10:11 Anion Gap 14.5 (5-19) 12/22/24 10:11 BUN 40 mg/dL (8-23) H 12/22/24 10:11 Creatinine 2.5 mg/dL (0.7-1.2) H 12/22/24 10:11 GFR Calculation 26.1 mL/min (90-130) L 12/22/24 10:11 Glucose 101 mg/dL (65-115) 12/22/24 10:11 POC Glucose 93 mg/dL (70-110) 12/22/24 12:42 Calculated Osmolality 284 mOsm/kg (285-295) L 12/22/24 10:11 Calcium 9.1 mg/dL (8.5-10.5) 12/22/24 10:11 Total Bilirubin 0.6 mg/dL (0.15-1.2) 12/22/24 10:11 AST 31 U/L (0-40) 12/22/24 10:11 ALT 44 U/L (0-41) H 12/22/24 10:11 Alkaline Phosphatase 62 U/L (40-130) 12/22/24 10:11 Total Protein 9.4 g/dL (6.6-8.7) H 12/22/24 10:11 Albumin 3.9 g/dL (3.5-5.2) 12/22/24 10:11 Globulin 5.5 g/dL (1.3-4.6) H 12/22/24 10:11 Lipase 58 U/L (13-60) 12/22/24 10:11 Urine Color Yellow (Yellow) 12/22/24 12:15 Urine Appearance Clear (CLEAR) 12/22/24 12:15 Urine pH 5.0 (5-7) 12/22/24 12:15 Ur Specific [place] 1.016 (1.005-1.030) 12/22/24 12:15 Urine Protein Trace (Negative) A 12/22/24 12:15 Urine Glucose (UA) 3+ (Normal) H 12/22/24 12:15 Urine Ketones Negative (Negative) 12/22/24 12:15 Urine Blood Negative (Negative) 12/22/24 12:15 Urine Nitrate Negative (Negative) 12/22/24 12:15 Urine Bilirubin Negative (Negative) 12/22/24 12:15 Urine Urobilinogen 0.2 mg/dL (Negative) 12/22/24 12:15 Ur Leukocyte Esterase 2+ (Negative) A 12/22/24 12:15 Urine RBC 0-2 /hpf (0-2) 12/22/24 12:15 Urine WBC 11-20 /hpf (0-5) H 12/22/24 12:15 Ur Squamous Epith Cells 0-5 /hpf (0-5) 12/22/24 12:15 Amorphous Sediment Not Reportable 12/22/24 12:15 Urine Bacteria None seen /hpf (NONE) 12/22/24 12:15 Hyaline Casts 12.81 /lpf 12/22/24 12:15 All radiology interpretation(s) finalized by discharge EKG Data EKG 1: I personally reviewed and interpreted this EKG as follows: EKG interpretation date: 12/22/24 EKG interpretation time: 10:18 Interpretation: nsr hr [address] elevation qrs 110 qtc 418 Discharge Plan Discharge Patient Disposition: Home Clinical Impression: Orthostatic hypotension, Dehydration Condition: Stable Prescriptions: No Action Eliquis 2.5 mg tablet 2.5 mg PO BID Qty: 180 3RF mupirocin 2 % ointment 1 applic topical BID 14 Days Qty: 22 2RF cholecalciferol (vitamin D3) 25 mcg (1,000 unit) Tablet 50 mcg PO QAM polyethylene glycol 3350 [Miralax] 17 gram powder in packet 17 g PO DAILY PRN (Reason: Constipation) aspirin [Molina Low Dose Aspirin] 81 mg Tablet,Delayed Release (Dr/Ec) 81 mg PO QAM 30 Days Qty: 30 3RF pantoprazole 40 mg tablet,delayed release (DR/EC) 40 mg PO BID ondansetron HCl 4 mg Tablet 4 mg PO QID PRN (Reason: Nausea/vomiting) Qty: 30 3RF prochlorperazine maleate [Compazine] 10 mg tablet 10 mg PO Q4H PRN (Reason: Mild Nausea) Qty: 30 3RF lorazepam 1 mg tablet 0.5 - 1 mg PO Q6H PRN (Reason: Severe Nausea) Qty: 30 3RF tamsulosin 0.4 mg Capsule 0.8 mg PO DAILY trazodone 100 mg Tablet 100 mg PO QPM insulin glargine 100 unit/mL (3 mL) Insulin Pen 15 unit SUBCUT QPM semaglutide 1 mg/dose (4 mg/3 mL) Pen Injector 1 mg SUBCUT Q7D duloxetine 30 mg Capsule,Delayed Release(Dr/Ec) 30 mg PO DAILY Qty: 30 0RF B complex-vitamin C-folic acid 1 mg Tablet 1 tab PO DAILY omega-3 fatty acids 1,000 mg Capsule 2,000 mg PO BID carboxymethylcellulose sodium 0.5 % Drops 2 drp ophthalmic (eye) TID PRN (Reason: redness) lidocaine 5 % Adhesive Patch,Medicated 1 patch topical DAILY PRN (Reason: Pain) Rx Instructions: on for 12 hours off for 12 hours glucose 4 gram Tablet,Chewable 4 g PO Q15M PRN (Reason: for low blood sugar) Rx Instructions: until symptoms of low blood sugar are controlled insulin aspart U-100 [Novolog FlexPen U-100 Insulin] 100 unit/mL (3 mL) insulin pen 18 unit SUBCUT TID Rx Instructions: sliding scale atorvastatin 80 mg Tablet 80 mg PO BEDTIME tizanidine 4 mg Tablet 4 mg PO BID PRN (Reason: Spasms) fluticasone propionate 50 mcg/actuation [place],Suspension 2 spray INTRANASAL DAILY Rx Instructions: administer into each nostril lactulose 10 gram/15 mL Solution 15 ml PO DAILY PRN (Reason: Constipation) diclofenac sodium 1 % Gel 2 g TOPICAL QID Rx Instructions: apply to single elbow, wrist or hand; for hand includes palm/fingers/back of hand cetirizine 10 mg tablet 10 mg PO DAILY PRN (Reason: allergies) Discharge Orders: Discharge ED (Routine); Ordered 12/22/24 Ordered By: Sakshi Henderson Referrals: Pam Diaz MD [Primary Care Provider, Family Practice] - 4-7 days Discharge Diet: Advance as tolerated Discharge Activity: Resume usual activity Patient Instructions: Dehydration (ED) Print Language: Czech Coding Level of Care Code ED Drafting Technician for Nirmal Uribe
[2024-12-22 10:28] VITALS: BP 104/70; PULSE 90; O2SAT 96
[2024-12-22 10:33] LABS: INR 1.04 (0.8-1.2); Prothrombin Time 14.30 SECONDS (12.1-14.9)
[2024-12-22 10:36] LABS: Alanine Aminotransferase 44 U/L (0-41); Albumin Level 3.9 g/dL (3.5-5.2); Alkaline Phosphatase 62 U/L (40-130); Anion Gap 14.5 (5-19); Aspartate Amino Transferase 31 U/L (0-40); Blood Urea Nitrogen 40 mg/dL (8-23); Calcium 9.1 mg/dL (8.5-10.5); Carbon Dioxide 19 mmol/L (22-29); Chloride 103 mmol/L (98-107); Creatinine Clr Calc Pharmacy 33.3086; Globulin 5.5 g/dL (1.3-4.6); Glucose 101 mg/dL (65-115); Lipase 58 U/L (13-60); Osmolality Calculated 284 mOsm/kg (285-295); Potassium 4.5 mmol/L (3.5-5.1); Sodium 132 mmol/L (136-145); Total Protein 9.4 g/dL (6.6-8.7)
[2024-12-22] MEDS: ondansetron 2 mg/ML SDV 2 mL 4 MG IVP (11:02)
[2024-12-22 12:19] VITALS: BP 117/46; O2SAT 99
[2024-12-22 12:36] LABS: Glucose Urine UA 3+ (Normal); Nitrate Urine Negative (Negative); Specific Gravity, Urine 1.016 (1.005-1.030)
[2024-12-22 12:41] LABS: Add Urine Microscopic? YES
[2024-12-22 12:42] VITALS: BP 112/69; BP 131/62; BP 92/54; PULSE 86; PULSE 87
[2024-12-22 12:58] LABS: UA Slide Review UA Slide Review Perf
[2024-12-22 13:13] VITALS: BP 112/68; PULSE 86; O2SAT 94
--- OUTSIDE RECORDS SUMMARY | 2024-12-23 14:14 | XMS_ITS | Encounter Summary ---
Author Organization [facility] Address [address] [address] Phone Care Team Providers Care Ticker Maintainer Name Role Phone Pam Diaz MD Primary Care Provider [phone] Encounter Details Date Type Department Care Team (Late Contact Info) Description 05/08/2023 Orders Only [facility] [address] [facility] [address] [place] [address] Chronic kidney disease, not otherwise specified Social History Tobacco Use Types Packs/Day Years Used Date Smoking Tobacco: Never Smokeless Tobacco: Never Alcohol Use Standard Drinks/Week Comments Never 0 (1 standard drink = 0.6 oz pur e alcohol) Sex and Gender Information Value Date Recorded Sex Assigned at Not on file Legal Sex Male 11:00 AM EDT Gender Identity Not on file Sexual Orientation Not on file documented as of this encounter Plan of Treatment Upcoming Encounters Date Type Department Care Team (Late st Contact Info) Description 02/22/2025 9:00 AM CDT Office Visit [facility] [address] [place] [address] Eleni Acevedo MD [address] [facility] [address] [place] [address] documented as of this encounter Visit Diagnoses Diagnosis Chronic kidney disease, not otherwise specified documented in this encounter Care Teams Ticker Maintainer Relationship Specialty Start Date End Date Pam Diaz MD [address], [place] [id number] PCP - General Family Medicine 09/27/20 documented as of this encounter
--- OUTSIDE RECORDS SUMMARY | 2024-12-23 14:14 | XMS_ITS | Clinical Summary ---
Author Organization [facility] Address [address] [place] [address] Phone Care Team Providers Care Assurance Engineer Name Role Phone Pam Diaz MD Primary Care Provider [phone] Allergies No known active allergies Medications sildenafil (VIAGRA) 100 MG tablet Take by mouth if needed Active aspirin (ST CRISTIAN) 81 MG EC tablet Take 81 mg by mouth 1 (one) time each day Active cholecalciferol (VITAMIN D-3) 25 MCG (1000 UT) tablet Take 2,000 Units by mouth 1 (one) time each day Active metoprolol succinate XL (TOPROL-XL) 100 MG 24 hr tablet Take 50 mg by mouth 1 (one) time each day Do not crush or chew. Active pantoprazole (PROTONIX) 40 MG EC tablet Take 40 mg by mouth 1 (one) time each day before breakfast Do not crush, chew, or split. Active B Adtdcuq-F-Sfkea Acid (RENAL MULTIVITAMIN FORMULA PO) Take 1 tablet by mouth 1 (one) time each day Active SEMAGLUTIDE,0.25 OR 0.5MG/DOS, SC Inject 0.5 mg under the skin per week Active amLODIPine (NORVASC) 5 MG tablet Take 10 mg by mouth 1 (one) time each day Active carboxymethylcell ulose 1 % ophthalmic solution 1 drop in the morning and 1 drop in the evening and 1 drop before bedtime. Active docusate sodium (COLACE) 100 MG capsule Take 100 mg by mouth in the morning and 100 mg in the evening. Active DULoxetine (CYMBALTA) [address] capsule Take 30 mg by mouth 1 (one) time each day Do not crush or chew. Active ferrous sulfate 325 (65 Fe) MG tablet Take 325 mg by mouth 1 (one) time each day with breakfast Active insulin glargine (LANTUS) 100 UNIT/ML injection Inject under the skin every night Active lidocaine (LIDODERM) 5 % patch Apply 1 patch topically 1 (one) time each day Remove & discard patch within 12 hours or as directed by MD. Active polyethylene glycol (MiraLax) 17 GM/SCOOP powder Take 17 g by mouth 1 (one) time each day Active atorvastatin (LIPITOR) 80 MG tablet 80 mg 2 Active Magnesium 400 MG tablet 400 mg 2 Active clopidogrel (Plavix) 75 MG tablet Take 75 mg by mouth 1 (one) time each day Active glipiZIDE (GLUCOTROL) 10 MG tablet Take 10 mg by mouth in the morning and 10 mg in the evening. Active acetaminophen (Tylenol 8 Hour) 650 MG 8 hr tablet Take 650 mg by mouth every 8 (eight) hours if needed Active tamsulosin (FLOMAX) 0.4 MG 24 hr capsule Take 0.4 mg by mouth 1 (one) time each day Active lisinopril 40 MG tabletIndications :Chronic kidney disease stage 3A (HCC) Take 1 tablet (40 mg total) by mouth 1 (one) time each day 90 tablet 3 4 Active furosemide (LASIX) 40 MG tablet Take 40 mg by mouth 1 (one) time each day 4 Active Empagliflozin 10 MG tablet Take 10 mg by mouth 1 (one) time each day in the morning 30 tablet 11 4 Active apixaban (ELIQUIS) 2.5 MG tablet Take 1 tablet by mouth in the morning and 1 tablet in the evening. 5 Active fluticasone (FLONASE) 50 MCG/ACT nasal spray Administer into affected nostril(s) if needed 5 Active cetirizine (ZyrTEC) 10 MG tablet Take 10 mg by mouth if needed 5 Active hydrOXYzine (ATARAX) 50 MG tablet Take 25 mg by mouth every night 5 Active Insulin Aspart 100 UNIT/ML solution Inject 5 Units under the skin 1 (one) time each day Active traZODone (DESYREL) 100 MG tablet Take 100 mg by mouth every night Active Active Problems Problem Noted Date Diagnosed Date Vitamin D deficiency 08/13/2024 Peripheral neuropathy due to type 2 diabetes pre[place] litus 12/11/2023 Stroke 12/11/2023 Transient cerebral ischemia 12/11/2023 Hypertension 12/11/2023 Reflux esophagitis 12/11/2023 Nausea and vomiting 12/11/2023 Lumbar disc prolapse with radiculopathy 12/11/19 Hyperlipidemia 12/11/2023 H/O: abdominal hernia 12/11/2023 Chronic kidney disease stage 3B 12/11/2023 History of acute kidney injury 12/11/2023 Hypertensive disorder 09/28/2020 Type 2 diabetes mellitus 08/05/2015 Family History Medical History Relation Comments Cancer Child Gout Father Dementia Mother Diabetes Mother Relation Status Comments Child Father Mother Alive Social History Tobacco Use Types Packs/Day Years Used Date Smoking Tobacco: Never Smokeless Tobacco: Never Tobacco Cessation:Counseling Given: Not Answered Alcohol Use Standard Drinks/Week Comments Never 0 (1 standard drink = 0.6 oz pur e alcohol) Sex and Gender Information Value Date Recorded Sex Assigned at Not on file Legal Sex Male 11:00 AM EDT Gender Identity Not on file Sexual Orientation Not on file Last Filed Vital Signs Vital Sign Reading Time Taken Comments Blood Pressure 138/76 08/19/2024 10:12 AM CDT Pulse 112 08/19/2024 10:12 AM CDT Temperature 36.3 C (97.3 F) 09/28/2020 9:11 AM CDT Respiratory Rate - - Oxygen Saturation 98% 08/19/2024 10:12 AM CDT Inhaled Oxygen Concentration - - Weight 96.6 kg (213 lb) 08/19/2024 10:12 AM CDT Height 175.3 cm (5' 9 ) 08/19/2024 10:12 AM CDT Body Mass Index 31.45 08/19/2024 10:12 AM CDT Plan of Treatment Upcoming Encounters Date Type Department Care Team (Late st Contact Info) Description 02/22/2025 9:00 AM CDT Office Visit [facility] [address] [place] [address] Eleni Acevedo MD [address] [address] Health Maintenance Due Date Last Done Comments Pneumococcal Vaccine: 50+ Years (1 of 2 - PCV) 10/06/1979 04/03/2005 Colorectal Cancer Screening: Annual FOBT 2009 Colorectal Cancer Screening: Colonoscopy 2009 Colorectal Cancer Screening: Sigmoidoscopy 2009 Diabetes: Pedal Pulse Checked 03/02/2019 Diabetes: Sensory Foot Exam 03/02/2019 Diabetes: Visual Foot Exam 03/02/2019 Diabetes: Hemoglobin A1C 03/21/2021 12/19/2020, 03/0 07/2020 Influenza Vaccine (#1) 2025 8, 05/26/2007, 04/03/2005 Diabetes: Ophthalmology Exam 06/26/2025 06/26/2024, 05/14/2024, 04/23/2024, Additional history exists Pneumococcal Vaccine: Peds (0 to 5 Years) and At-Risk Patients (6 to 49 Years) Discontinued 04/03/2005 Hepatitis B Vaccine Aged Out No longe r eligible based on patient's age to complete this topic Procedures Procedure Name Priority Date/Time Associated Diagnosis Comments HEMOGLOBIN A1C (EXTERNAL RESULT ENTRY) Routine 12/19/2020 10:41 AM CDT from Last 3 Months or Most Recently Relevant to Health Maintenance Results * Hemoglobin A1C (12/19/2020 10:41 AM CDT) Hemoglobin A1C 8.3 Blood specimen (specimen) Venous blood / Unknown 12/19/2020 10:41 AM CDT us Pam Diaz MD LAB BLOOD ORDERABLES Final Resul t from Last 3 Months or Most Recently Relevant to Health Maintenance Insurance [facility] [employer] 1,2,3 (VACCN) Care Teams Assurance Engineer Relationship Specialty Start Date End Date Pam Diaz MD [address] [place] [address] PCP - General Family Medicine 09/27/20
--- OUTSIDE RECORDS SUMMARY | 2024-12-23 14:14 | XMS_ITS | Patient Health Record ---
Author Organization [facility] Address [address] [place] [address] Care Team Providers Care Spacecraft Systems Engineer Name Role Phone Pam Schultz MD Primary Care Provider Unavailbobby pearson ERYN OCASIO Unavailable [phone] Nick Hawkins Unavailable Unavailable Allergies No Known Allergies Reason For Referral No Information Medications Medication SIG (Take, Route, Frequency, Duration) Notes Start Date End Date Status Semaglutide (1 MG/DOSE) 4 MG/3ML as directed Subcutaneous *Reorder from [facility] for eRx and Interaction Alerts* Active Metoprolol Succinate 50 MG 1 capsule Orally Once a day *Reorder from [facility] for eRx and Interaction Alerts* Active Reglan 10 MG 1 tablet Orally once; Duration: 1 days 06/18/2022 Active tiZANidine HCl 4 MG 1 tablet as needed Orally twice a day Active Atorvastatin Calcium 80 MG 1 tablet Orally Once a day Active Fish Oil 1000 MG 2 capsules Orally Twice a day Active Pregabalin 150 MG 1 capsule Orally Active amLODIPine Besylate 5 MG 1 tablet Orally Once a day Active Docusate Sodium 100 MG 2 capsule as needed Orally twice a day Active glipiZIDE 10 MG two tablets Orally twice daily Active Insulin Glargine 100 UNIT/ML as directed Subcutaneous 35 Units *Reorder from [facility] for eRx and Interaction Alerts* Active Multivitamin - 1 tablet Orally Once a day Active traMADol HCl 50 MG 1 tablet as needed Orally max of two tablets a day Active Aspirin 81 MG 1 tablet Orally Once a day Active Pantoprazole Sodium 40 MG 1 tablet Orall y Once a day Active Lisinopril 10 MG 1 tablet Orally Once a day Active Magnesium 400 MG as directed Orally every other day Active Clopidogrel Bisulfate 75 MG 1 tablet Orally Once a day Active hydroCHLOROthiazide 12.5 MG 1 capsule Orally twice a day Active Vitamin D 50 MCG (1999) 1 tablet Orally Once a day Active Sildenafil Citrate 100 MG 1 tablet as ne eded Orally Once a day Active Problems Problem Type SNOMED Code ICD Code Onset Dates Problem Status W/U Status Risk Notes Problem Obstructive uropathy (4082462) Other obstructive and reflux uropathy (N13.8) Active confirmed Problem Erectile dysfunction co-occurrent and due to arterial insufficiency (disorder) (856506249056988) Erectile dysfunction due to arterial insufficiency (N52.01) Active confirmed Problem Long-term current use of insulin (185711061) detention (current) use of insulin (Z79.4) Active confirmed Problem Type II diabetes mellitus without complication (239304774) Type 2 diabetes mellitus without complications (E11.9) Active confirmed Problem Lower urinary tract symptoms due to benign prostatic hypertrophy (17356996447637) Benign prostatic hyperplasia with lower urinary tract symptoms (N40.1) Active confirmed Problem Asymptomatic microscopic hematuria (7523338556999289 9) Asymptomatic microscopic hematuria (R31.21) Active confirmed Problem Constipation (99736262) Constipation, unspecified constipation type (K59.00) Active confirmed Problem Erectile dysfunction (disorder) (174895588) Erectile dysfunction, unspecified erectile dysfunction type (N52.9) Active confirmed Problem Type 2 diabetes mellitus with other specified complication, unspecified whether cutter hot knife insulin use (E11.69) Active confirmed Problem Proteinuria (80425994) Proteinuria (R80.9) Active confirmed Plan Of Treatment Pending Test Test Name Order Date CBC w\ Auto Diff [id number] 06/18/2022 Comprehensive Metabolic Panel 42239 10/2022 Abdomen [id number] 06/18/2022 Colonoscopy, Average Risk Screening-G012 1 06/18/2022 Insurance Providers Payer Name Payer Address Payer Phone Subscriber Number Group Number Insured Name Patient Relationship to Insured Coverage Start Date Coverage End Date [employer]AC[employer] [address] [place] [id number] Wayne Aguilar Self - patient is the insured Medical (General) History Medical History History ICD Code chicken pox erectile dysfunction diabetes back trouble hypertension stroke Surgical History Surgery Date(Month/Year) appendectomy 2019 Hospitalization History Reason Date(Month/Year) stroke 2021
--- OUTSIDE RECORDS SUMMARY | 2024-12-23 14:14 | XMS_ITS | Clinical Summary ---
Author Organization [facility] Address [address] [place] [address] Care Team Providers Care Applied Mathematician Name Role Phone Laron Chauhan MD Primary Care Provider Allergies Active Allergy Reactions Criticality Noted Date Comments Gabapentin Muscle Pain Low 12/17/2013 Medications semaglutide 0.25 mg or 0.5 mg(2 mg/1.5 mL) Pen Injector INJECT 0.5MG (0.375ML) UNDER THE SKIN EVERY WEEK FOR BLOOD SUGAR CONTROL. 1 Active pantoprazole (PROTONIX) 40 mg Tablet, Delayed Release (E.C.) TAKE ONE TABLET BY MOUTH TWICE A DAY TO LOWER STOMACH ACID - TAKE 30 MINUTES BEFORE MEAL(S) 0 Active amLODIPine (NORVASC) 5 mg tablet 10 mg. 1 Active glipiZIDE (GLUCOTROL) 5 mg tablet TAKE ONE TABLET BY MOUTH TWO TIMES A DAY BEFORE MEALS FOR DIABETES. TAKE 30 MINUTES BEFORE EATING. 1 Active acetaminophen (TYLENOL) 325 mg tablet Take 325 mg by mouth every 4 hours as needed. 1 Active traMADoL (ULTRAM) 50 mg tablet TAKE 1 TABLET BY MOUTH EVERY 4 TO 6 HOURS NEEDED FOR PAIN. MAX OF 2 TABLETS PER DAY. HOLD WITHIN 4 HOURS OF PLANNED SLEEP. *MUST LAST 30 DAYS OR MORE* 2 Active tiZANidine (ZANAFLEX) 4 mg Tablet 4 mg. 2 Active pregabalin (LYRICA) 150 mg Capsule 150 mg. 2 Active polyethylene glycol 3350 (MIRALAX) 17 gram/dose Powder MIX AND DRINK 1 CAPFUL BY MOUTH ONCE A DAY TO PREVENT CONSTIPATION. (MEASURE WITH CAP AND MIX IN 8 OZ OF WATER) 2 Active aspirin (ECOTRIN EC) 81 mg Tablet, Delayed Release (E.C.) 1 Tablet. 2 Active atorvastatin (LIPITOR) 80 mg tablet 1 Tablet. 2 Active blood sugar diagnostic Strip Active cholecalciferol , vitamin D3, 1,000 unit Take 1,000 Units by mouth daily. Active clopidogreL (PLAVIX) 75 mg Tablet 1 Tablet. 2 Active docusate sodium (COLACE) 100 mg capsule 2 times daily. 2 Active hydroCHLOROthia zide (HYDRODIURIL) 12.5 mg tablet Take 12.5 mg by mouth daily. Active lisinopriL (PRINIVIL) 5 mg tablet Take 5 mg by mouth daily. Active magnesium oxide (MAG-OX) 400 mg (241.3 mg magnesium) tablet 400 mg. 2 Active metoprolol succinate (TOPROL XL) 100 mg Extended Release 24 hour tablet 50 mg. 3 Active Vit B Comp & C-Vit E-FA-Vicky-Zn 0.4 mg Tablet 1 Tablet. Active tamsulosin (FLOMAX) 0.4 mg capsule 0.4 mg. 3 Active glucose 4 gram Tablet, Chewable 20 Grams. 3 Active carboxymethylce llulose sodium (REFRESH) 0.5 % solution Administer 2 Drops in both eyes 3 times daily as needed for Rash or Redness. 5 mL 6 3 Active DULoxetine 30 mg capsule, delayed rel sprinkle 1 cap orally Q12H for 28 days Active whrrg-0-MTE-EPA -fish oil (Fish OiL) 1,000 mg Capsule 2,000 mg. 3 Active cetirizine (ZyrTEC) 10 mg tablet 10 mg. 4 Active hydrOXYzine HCL (ATARAX) 50 mg tablet 50 mg. 3 Active insulin glargine (LANTUS) 100 unit/mL pen syringe 18 Units. 3 Active empagliflozin (JARDIANCE) 10 mg tablet Take 10 mg by mouth. 4 Active furosemide (LASIX) 40 mg tablet Take 40 mg by mouth. 4 Active hydrALAZINE (APRESOLINE) 25 mg tablet Take 12.5 mg by mouth. 4 Active traZODone (DESYREL) 100 mg tablet Take 100 mg by mouth. 4 Active insulin aspart (NovoLOG) 100 unit/mL injection Inject by subcutaneous injection. Active apixaban (ELIQUIS) 2.5 mg tablet Take 1 Tablet by mouth 2 times daily. 5 Active lactulose (ENULOSE) 10 gram/15 mL oral solution Take by mouth. 4 Active meclizine 25 mg Tablet, Chewable Take 25 mg by mouth. 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, with long-term current use of insulin 08/05/2015 HTN (hypertension) Diabetes mellitus Resolved Problems Problem Noted Date Diagnosed Date Resolved Date Vitreous hemorrhage of both eyes 01/24/2017 09/23/2017 Vitreous hemorrhage of left eye 10/14/2015 09/23/2017 Encounters Date Type Department Care Team Description 11/25/2024 External Device Data ST[facility] ABSTRACTION Provider, Abstract 11/24/2024 External Device Data [facility] ABSTRACTION Provider, Abstract 10/27/2024 External Device Data [facility] ABSTRACTION Provider, Abstract 09/22/2024 External Device Data [facility] ABSTRACTION Provider, Abstract 09/22/2024 External Device Data [facility] ABSTRACTION Provider, Abstract from Last 3 Months Social History Tobacco Use Types Packs/Day Years Used Date Smoking Tobacco: Never Smokeless Tobacco: Never Alcohol Use Standard Drinks/Week Comments No 0 (1 standard drink = 0.6 oz pur e alcohol) Sex and Gender Information Value Date Recorded Sex Assigned at Not on file Legal Sex Male 5:27 AM LOAN CLOSER Gender Identity Not on file Sexual Orientation Not on file Last Filed Vital Signs Vital Sign Reading Time Taken Comments Blood Pressure 136/74 06/10/2024 2:30 PM LOAN CLOSER Pulse 78 06/10/2024 1:30 PM LOAN CLOSER Temperature 36.4 C (97.6 F) 06/10/2024 2:30 PM LOAN CLOSER Respiratory Rate 14 06/10/2024 2:30 PM LOAN CLOSER Oxygen Saturation 97% 06/10/2024 2:30 PM LOAN CLOSER Inhaled Oxygen Concentration - - Weight 96.2 kg (212 lb) 06/10/2024 1:30 PM LOAN CLOSER Height 175.3 cm (5' 9 ) 06/04/2024 12:17 PM LOAN CLOSER Body Mass Index 31.31 06/04/2024 12:17 PM LOAN CLOSER Plan of Treatment Health Maintenance Due Date Last Done Comments DIABETES ANNUAL FOOT EXAM 1978 DIABETES MICROALBUMIN ANNUAL SCREEN 1978 LDL CHOLESTEROL ANNUAL 1978 COLORECTAL SCREENING 2005 Colorectal Cancer Screening 2005 FIT-DNA Q 3 years 2005 FIT/FOBT Q 1 year 2005 Flex Sig/CT Colonography Q 5 years 2005 RSV VACCINE (60+ or ) (1 - Risk 60-74 years 1-dose series) 2020 DIABETES HBA1C Q 6 MONTHS 09/27/2024 03/30/2024 INFLUENZA VACCINE (#1) 2024 02/11/2018 DIABETES ANNUAL RETINAL EXAM 06/26/2025, 06/26/2024, 06/03/2024, Additional history exists DTAP/TDAP/TD VACCINES (5 - T d or Tdap) 03/02/2029 03/02/2019, 05/18/2013, 05/13/2010, Additional history exists ZOSTER VACCINE Completed 12/12/2021, 02/11/2018 Medical Devices Implanted Type Area Javascript Software Engineer Device Identifier Shelf Expiration Date Model / Serial / Lot Lens Iol [employer] Ii 23.0 [id number] - [id number] Implanted:Qty: 1 on 05/27/2024 by Francisco Mora MD at [facility] Right: Eye [employer] 12/02/2025 [id number] / [id number] / Lens Iol Leon Weinstein 23.0 [id number] - [id number] Implanted:Qty: 1 on 06/10/2024 by Francisco Mora MD at [facility] Left: Eye [employer]. [id number] 02/05/2027 [id number] / [id number] / Procedures Procedure Name Priority Date/Time Associated Diagnosis Comments INTRAVITREAL INJECTION RIGHT Routine 12/22/2015 11:47 AM CDT Type 2 diabetes mellitus with proliferative diabetic retinopathy with macular edema ([facility]) from Last 3 Months or Most Recently Relevant to Health Maintenance Results * INTRAVITREAL INJECTION RIGHT (12/22/2015 11:47 AM CDT) Narrative INTERFACE SYSTEM - 12/22/2015 11:47 AM CDT Pollo Barfield MD 12/22/2015 11:47 AM PROCEDURE NOTE Patient: Willem Aguilar / 55 y.o. / male : 1960 ICD-10-CM ICD-9-CM 1. Type 2 diabetes mellitus with proliferative diabetic retinopathy with macular edema E11.351 250.50 MA AVASTIN 2.5 MG/0.1 ML MTHD OF ADM INTRAVITREAL INJ 362.02 INTRAVITREAL INJECTION RIGHT 362.07 Procedure: Intravitreal Avastin Injection, Right Eye. Anesthesia: Topical 0.5% Tetravisc Surgeon: Pollo Barfield M.D. Procedure in Detail: The patient was taken to the examination room. The risks and benefits of the procedure were explained at length. The signs and symptoms of endophthalmitis were reviewed. Time Out Protocol: Proper Timeout protocol was performed. All patient information and surgical plan was confirmed and agreed upon by Dr. Barfield and the surgical team. The right eye was prepped with topical proparacaine followed by Betadine solution. A drop of Tetravisc was placed in the eye for 5 minutes. Using sterile gloves and sterile technique, two additional drops of Betadine solution were placed on the injection site. 1.25 mg (0.05cc) Avastin were injected through the temporal sclera 3.5mm posterior to the limbus. After the injection, an additional drop of Betadine was placed on the injection site. The visual acuity was found to be at least count fingers. After a minimum of 30 seconds after the last Betadine drop. Complications: None. The patient was also instructed to call, if they have any problems or concerns. The patient left the clinic in good stable condition having tolerated the procedure well. Pollo Barfield M.D. Retina Civil Engineering Technician Procedure Note Conversion, Auto Data - 08/16/2021 Pollo Barfield MD 12/22/2015 11:47 AM PROCEDURE NOTE Patient: Willem Aguilar / 55 y.o. / male : 1960 ICD-10-CM ICD-9-CM 1. Type 2 diabetes mellitus with proliferative diabetic retinopathy with macular edema E11.351 250.50 MA AVASTIN 2.5 MG/0.1 ML MTHD OF ADM INTRAVITREAL INJ 362.02 INTRAVITREAL INJECTION RIGHT 362.07 Procedure: Intravitreal Avastin Injection, Right Eye. Anesthesia: Topical 0.5% Tetravisc Surgeon: Pollo Barfield M.D. Procedure in Detail: The patient was taken to the examination room. The risks and benefits of the procedure were explained at length. The signs and symptoms of endophthalmitis were reviewed. Time Out Protocol: Proper Timeout protocol was performed. All patient information and surgical plan was confirmed and agreed upon by Dr. Barfield and the surgical team. The right eye was prepped with topical proparacaine followed by Betadine solution. A drop of Tetravisc was placed in the eye for 5 minutes. Using sterile gloves and sterile technique, two additional drops of Betadine solution were placed on the injection site. 1.25 mg (0.05cc) Avastin were injected through the temporal sclera 3.5mm posterior to the limbus. After the injection, an additional drop of Betadine was placed on the injection site. The visual acuity was found to be at least count fingers. After a minimum of 30 seconds after the last Betadine drop. Complications: None. The patient was also instructed to call, if they have any problems or concerns. The patient left the clinic in good stable condition having tolerated the procedure well. Pollo Barfield M.D. Retina Civil Engineering Technician us Pollo Barfield MD [facility] OTHER Final Resul t INTERFACE SYSTEM Refer to clinic/hospital department from Last 3 Months or Most Recently Relevant to Health Maintenance Insurance [facility] [facility] [employer] [facility] [address] [address] [address] [place] [address] [place] [address] Advance Directives For more information, please contact: [phone] * Full Code (Latest Code Status on File) Date Activated Date Inactivated Comments 06/10/2024 1:09 PM 06/10/2024 5:30 PM * Full Code Date Activated Date Inactivated Comments 05/27/2024 12:06 PM 05/27/2024 6:42 PM Care Teams Applied Mathematician Relationship Specialty Start Date End Date Laron Chauhan MD [address] [place] [id number] PCP - General Internal Medicine 01/02/17
--- OUTSIDE RECORDS SUMMARY | 2024-12-23 14:15 | XMS_ITS | Encounter Summary ---
Author Organization [facility] [place], [facility] Address [address] [address] Phone Care Team Providers Care Steamfitter Supervisor Name Role Phone Pam Diaz MD Primary Care Provider [phone] Encounter Details Date Type Department Care Team (Late st Contact Info) Description 08/04/2020 Orders Only [facility] [address] [address] Stage 3 chronic kidney disease, not otherwise specified (HCC) Social History Tobacco Use Types Packs/Day Years Used Date Smoking Tobacco: Never Assessed Sex and Gender Information Value Date Recorded Sex Assigned at Not on file Legal Sex Male 11:00 AM EDT Gender Identity Not on file Sexual Orientation Not on file documented as of this encounter Plan of Treatment Upcoming Encounters Date Type Department Care Team (Late st Contact Info) Description 02/22/2025 9:00 AM CDT Office Visit [facility], [facility] [address] [place] [address] Eleni Acevedo MD [address] [facility] [address] [place] [address] documented as of this encounter Visit Diagnoses Diagnosis Stage 3 chronic kidney disease, not otherwise specified (HCC) documented in this encounter Care Teams Steamfitter Supervisor Relationship Specialty Start Date End Date Pam Diaz MD [address] [place], [place] [id number] PCP - General Family Medicine 09/27/20 documented as of this encounter
--- OUTSIDE RECORDS SUMMARY | 2024-12-23 14:15 | XMS_ITS | Encounter Summary ---
Author Organization [place] [facility] Address [address] [address] Phone Care Team Providers Care Blending Tank Helper Name Role Phone Pam Diaz MD Primary Care Provider [phone] Encounter Details Date Type Department Care Team (Late st Contact Info) Description 09/29/2020 Orders Only [facility] [address] [address] Mitch Juares MD [facility] [facility] [email or web address] [address] [address] Stage 3a chronic kidney disease (HCC) Social History Tobacco Use Types Packs/Day Years Used Date Smoking Tobacco: Never Smokeless Tobacco: Never Alcohol Use Standard Drinks/Week Comments Never 0 (1 standard drink = 0.6 oz pur e alcohol) Sex and Gender Information Value Date Recorded Sex Assigned at Not on file Legal Sex Male 11:00 AM EDT Gender Identity Not on file Sexual Orientation Not on file COVID-19 Exposure Response Date Recorded In the last month, have you been in contact with someone who was confirmed or suspected to have Coronavirus / COVID-19? No / Unsure 09/28/2020 8:57 AM EDT documented as of this encounter Plan of Treatment Upcoming Encounters Date Type Department Care Team (Late st Contact Info) Description 02/22/2025 9:00 AM CDT Office Visit [place] [facility] [address] [place] [phone] Eleni Acevedo MD [address] [facility] [employer] [address] documented as of this encounter Visit Diagnoses Diagnosis Stage 3a chronic kidney disease (HCC) documented in this encounter Care Teams Blending Tank Helper Relationship Specialty Start Date End Date Pam Diaz MD [address] [place] [address] PCP - General Family Medicine 09/27/20 documented as of this encounter
--- OUTSIDE RECORDS SUMMARY | 2024-12-23 14:15 | XMS_ITS | Patient Health Record ---
Author Organization [facility] Address [address] [place], [place] [id number] Care Team Providers Care Ethanol Quality Leader Name Role Phone [facility] Primary Care Provider Beatriz Harry Adrian MD Unavailable [phone] [place], [place] Unavailable Unavailable Zuleika Flores Unavailable [phone] Allergies Allergen (clinical drug ingredient) Drug/Non Drug Allergy documented on EMR Reaction Allergy Type Onset Date Status adhesive tape (uncoded) Unknown Allergy Active gabapentin gabapentin Unknown Drug Allergy Activ e metformin metFORMIN Unknown Drug Allergy Active Reason For Referral Diagnosis 1 Other chronic pain ( G89.29) Referring Provider First Name [place] Erick ff Referring Provider Last Name [place] Referred Organization [facility] Referred Provider Harry Alanis Referred Address [address] [place], [id number], Referred Provider Specialty Pain Managem ent Referral Priority Routine Diagnosis 1 Vertebrogenic low ba ck pain (M54.51) Referring Provider First Name [place] Erick ff Referring Provider Last Name [facility] Referred Provider Harry Alanis Referred Address [address] [place], [id number], Referred Provider Specialty Pain Managem ent Referral Priority Routine Medications Medication SIG (Take, Route, Frequency, Duration) Notes Start Date End Date Status bisacodyl 5 mg 2 tab(s) orally once a day, as needed Active Tylenol 8 HR Arthritis Pain 650 mg 1-2 tab(s) orally every 8 hours, as needed Active atorvastatin 80 mg 1 tab(s) orally once a day; Duration: 30 day(s) Active tamsulosin 0.4 mg 1 cap(s) orally once a day; Duration: 30 day(s) Active Plavix 75 mg 1 tab(s) orally once a day Active aspirin 81 mg 1 tab(s) orally once [...] 1/2 tab(s) orally once a day Active Lantus 100 units/mL 0 subcutaneously Active DULoxetine 30 mg 1 cap orally Q12H Active hydrALAZINE 25 mg 1 tab(s) orally 4 ti mes a day; Duration: 30 day(s) 10/30/2023 Active glipiZIDE 10 mg 1 tab(s) orally 2 ti mes a day Active furosemide 40 mg 1 tab(s) orally once a day; Duration: 30 day(s) 10/30/2023 Active Social History Tobacco Use: Social History Observation Description Date Details (start date - stop date) Never Smoker NA - NA Tobacco use: Question Answer Notes : nonsmoker AUDIT-C (Standard) Question Answer Notes Did you have a drink containing alcohol in the p ast year? 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) use of opiate analgesic (Z79.891) Active confirmed Problem Diabetic neuropathy (396505226) Diabetes mellitus due to underlying condition with diabetic neuropathy, unspecified (E08.40) Active confirmed Problem Anxiety disorder (868315820) Other specified anxiety disorders (F41.8) Active confirmed Problem Hypersomnia (43804357) Hypersomnia, unspecified (G47.10) Active confirmed Problem Sleep disorder (00232314) Other sleep disorders (G47.8) Active confirmed Problem Chronic pain (66722712) Other chronic pain (G89.29) Active confirmed Problem Chronic pain syndrome (855433395) Chronic pain syndrome (G89.4) Active confirmed Problem Essential hypertension (24082026) Essential (primary) hypertension (I10) Active confirmed Problem Acquired spondylolisthesis (567120972) Spondylolisthesi s, lumbar region (M43.16) Active confirmed Problem Acquired spondylolisthesis (965780352) Spondylolisthesi s, lumbosacral region (M43.17) Active confirmed Problem Neurogenic claudication (650985958) Spinal stenosis, lumbar region with neurogenic claudication (M48.062) Active confirmed Problem Muscle pain (51076817) Myalgia, other site (M79.18) Active confirmed Problem Pain in lumbar spine (505185956) Vertebrogenic low back pain (M54.51) Active confirmed Vital Signs Temperature 97.9 degrees Fahrenheit 07/16/2024 Blood pressure diastolic 76 mm Hg 07/16/2024 Oximetry 96 % 07/16/2024 Height 69 in 07/16/2024 Blood pressure systolic 157 mm Hg 07/16/2024 Weight 216.2 lbs 07/16/2024 BMI 31.92 kg/m2 07/16/2024 Encounters Encounter Location Date Provider Diagnosis [facility] [address] [place], [place] [id number] 12/25/2023 Zuleika Pipers Vertebrogenic low ba ck pain M54.51 ; Other chronic pain G89.29 ; Diabetes mellitus due to underlying condition with diabetic neuropathy, unspecified E08.40 ; Myalgia, other site M79.18 ; Spinal stenosis, lumbar region with neurogenic claudication M48.062 and Other sleep disorders G47.8 [facility] [place] [address] [place], [place] [id number] 02/19/2024 Harry Alanis Vertebrogenic low ba ck pain M54.51 ; Other chronic pain G89.29 ; Diabetes mellitus due to underlying condition with diabetic neuropathy, unspecified E08.40 ; Myalgia, other site M79.18 ; Spinal stenosis, lumbar region with neurogenic claudication M48.062 and Other sleep disorders G47.8 [facility], [facility] [address] [place], [place] [id number] 03/31/2024 Harry Alanis Spondylosis without myelopathy or radiculopathy, lumbar region M47.816 ; Other specified anxiety disorders F41.8 ; Vertebrogenic low back pain M54.51 ; Other chronic pain G89.29 ; Diabetes mellitus due to underlying condition with diabetic neuropathy, unspecified E08.40 ; Myalgia, other site M79.18 ; Spinal stenosis, lumbar region with neurogenic claudication M48.062 and Other sleep disorders G47.8 [facility], [facility] [address], [place] [id number] 05/21/2024 Harry Alanis Vertebrogenic low ba ck pain M54.51 ; Other chronic pain G89.29 ; Spondylosis without myelopathy or radiculopathy, lumbar region M47.816 ; Diabetes mellitus due to underlying condition with diabetic neuropathy, unspecified E08.40 ; Myalgia, other site M79.18 ; Spinal stenosis, lumbar region with neurogenic claudication M48.062 and Other sleep disorders G47.8 [facility], [facility] [address] [place], [place] [id number] 07/16/2024 Harry Alanis Vertebrogenic low ba ck pain M54.51 ; Other chronic pain G89.29 ; Diabetes mellitus due to underlying condition with diabetic neuropathy, unspecified E08.40 ; Myalgia, other site M79.18 ; Spinal stenosis, lumbar region with neurogenic claudication M48.062 and Essential (primary) hypertension I10 [facility], [facility] [address] [place] [id number] 09/10/2024 Harry Alanis Procedure and treatment not carried out because of patient's decision for unspecified reasons Z53.20 [facility], [facility] [address] [place], [place] [id number] 01/22/2024 Harry Alanis [facility], [facility] [address], [place] [id number] 03/18/2024 Harry Alanis [facility], [facility] [address], [place] [id number] 04/20/2024 Harry Alanis [facility], [address] [id number] 06/18/2024 Harry Alanis [facility], [address] [id number] 08/12/2024 Harry Alanis Assessments Encounter Date Diagnosis (ICD Code) Assessment Notes Treatment Notes Treatment Clinical Notes Section Notes 12/25/2023 Vertebrogenic low back pain (ICD-10 - M54.51) Chronic axial lumbosacral spine pain. 03/31/2024 Spondylosis without myelopathy or radiculopathy, lumbar region (ICD-10 - M47.816) Plan right L3 medial branch, right L4 medial branch, right L5 dorsal ramus diagnostic blocks. Consider repeat / confirmatory blocks and possible RFA, pending outcome of diagnostic blocks. Risks, benefits, and alternatives reviewed with patient. Questions answered to the patient's reported satisfaction. Preparation for procedure(s) reviewed with patient; printed instructions given. After discussion of the risks of Plavix cessation prior to procedure(s) versus the risks of Plavix continuation for the procedure(s), patient elected to continue the Plavix throughout the course of the procedure(s). 03/31/2024 Other specified anxiety disorders (ICD-10 - F41.8) Plan moderate IV sedation as needed with midazolam and / or fentanyl. 09/10/2024 Procedure and treatment not carried out because of patient's decision for unspecified reasons (ICD-10 - Z53.20) PDMP checked in advance of patient's scheduled appointment. 02/19/2024 Vertebrogenic low back pain (ICD-10 - M54.51) Chronic axial lumbosacral spine pain. 07/16/2024 Other chronic pain (ICD-10 - G89.29) Patient reports that he is currently tapering off his pain medication and is not requesting a refill at today's visit. 07/16/2024 Vertebrogenic low back pain (ICD-10 - M54.51) Chronic axial lumbosacral spine pain. 05/21/2024 Other chronic pain (ICD-10 - G89.29) Patient reports that taking his pain medication allows him to spend time with family. Plan to continue oral opioid medication management. 05/21/2024 Vertebrogenic low back pain (ICD-10 - M54.51) Chronic axial lumbosacral spine pain. 05/21/2024 Spondylosis without myelopathy or radiculopathy, lumbar region (ICD-10 - M47.816) Patient to notify this office if he wants to proceed with right lumbar blocks as discussed at prior office visit. 07/16/2024 Diabetes mellitus due to underlying condition with diabetic neuropathy, unspecified (ICD-10 - E08.40) Patient reports some benefit with use of duloxetine for diabetic neuropathy symptoms. Patient to discuss management of this medication [facility]. Plan to continue in the interim. 02/19/2024 Other chronic pain (ICD-10 - G89.29) Patient reports that taking his pain medication allows him to travel and spend time with family. Plan to continue oral opioid medication management. 03/31/2024 Vertebrogenic low back pain (ICD-10 - M54.51) Chronic axial lumbosacral spine pain. 12/25/2023 Diabetes mellitus due to underlying condition with diabetic neuropathy, unspecified (ICD-10 - E08.40) Patient reports some benefit with use of duloxetine for diabetic neuropathy symptoms. Plan to continue. 12/25/2023 Other chronic pain (ICD-10 - G89.29) Patient reports that taking his pain medication allows him to travel more. Plan to continue oral opioid medication management. 03/31/2024 Other chronic pain (ICD-10 - G89.29) Patient reports that taking his pain medication allows him to be more active. Plan to continue oral opioid medication management. 12/25/2023 Myalgia, other site (ICD-10 - M79.18) Patient reports benefit with use of tizanidine for spasms. Plan to continue. 02/19/2024 Diabetes mellitus due to underlying condition with diabetic neuropathy, unspecified (ICD-10 - E08.40) Patient reports some benefit with use of duloxetine for diabetic neuropathy symptoms. Plan to continue. 05/21/2024 Diabetes mellitus due to underlying condition with diabetic neuropathy, unspecified (ICD-10 - E08.40) Patient reports some benefit with use of duloxetine for diabetic neuropathy symptoms. Plan to continue. 07/16/2024 Myalgia, other site (ICD-10 - M79.18) Patient reports tizanidine discontinued. 05/21/2024 Myalgia, other site (ICD-10 - M79.18) Patient reports benefit with use of tizanidine for spasms. Plan to continue. 07/16/2024 Spinal stenosis, lumbar region with neurogenic claudication (ICD-10 - M48.062) Patient reports pregabalin discontinued. 02/19/2024 Myalgia, other site (ICD-10 - M79.18) Patient reports benefit with use of tizanidine for spasms. Plan to continue. 03/31/2024 Diabetes mellitus due to underlying condition with diabetic neuropathy, unspecified (ICD-10 - E08.40) Patient reports some benefit with use of duloxetine for diabetic neuropathy symptoms. Plan to continue. 12/25/2023 Spinal stenosis, lumbar region with neurogenic claudication (ICD-10 - M48.062) Patient reports benefit with use of pregabalin for BLE symptoms. Plan to continue. 12/25/2023 Other sleep disorders (ICD-10 - G47.8) Plan to continue to restrict opioid use in relation to sleep for safety concerns. 03/31/2024 Myalgia, other site (ICD-10 - M79.18) Patient reports benefit with use of tizanidine for spasms. Plan to continue. 02/19/2024 Spinal stenosis, lumbar region with neurogenic claudication (ICD-10 - M48.062) Patient reports benefit with use of pregabalin for BLE symptoms. Plan to continue. 07/16/2024 Essential (primary) hypertension (ICD-10 - I10) Education sheet given at today's visit; patient to address with PCP. 05/21/2024 Spinal stenosis, lumbar region with neurogenic claudication (ICD-10 - M48.062) Patient reports benefit with use of pregabalin for BLE symptoms. Plan to continue. 05/21/2024 Other sleep disorders (ICD-10 - G47.8) Plan to continue to restrict opioid use in relation to sleep for safety concerns. 02/19/2024 Other sleep disorders (ICD-10 - G47.8) Plan to continue to restrict opioid use in relation to sleep for safety concerns. 03/31/2024 Spinal stenosis, lumbar region with neurogenic claudication (ICD-10 - M48.062) Patient reports benefit with use of pregabalin for BLE symptoms. Plan to continue. 03/31/2024 Other sleep disorders (ICD-10 - G47.8) Plan to continue to restrict opioid use in relation to sleep for safety concerns. 03/31/2024 Other Patient reported at a previous visit that Dr. Glynn diagnosed him with myeloma (he opted for no treatment). [facility] more than 1 month of opioid prescriptions at a time, remaining eRx will be sent in 28 days from the last eRx. Patient prefers all [facility] prescriptions be sent monthly as he often forgets to call for refills due to his history of stroke. 02/19/2024 Other Patient reported at a previous visit that Dr. Glynn diagnosed him with myeloma (he opted for no treatment). Due to the [facility] to [facility] more than 1 month of opioid prescriptions at a time, remaining eRx will be sent in 28 days. Patient prefers all [facility] prescriptions be sent monthly as he often forgets to call for refills. The service was provided by [facility], as part of the ongoing care plan established by Harry Alanis MD, who was present in the office for direct supervision during the encounter. 07/16/2024 Other Due to patient forgetting to call [facility] refills [facility] the [facility], patient's remaining eRx will be sent in 28 days. Patient to notify this office if his [facility] P[facility] agrees to assume management of his duloxetine. The service was provided by [facility], as part of the ongoing care plan established by Harry Alanis MD, who was present in the office for direct supervision during the encounter. 09/10/2024 Other The service was provided by [facility], as part of the ongoing care plan established by Harry Alanis MD, who was present in the office for direct supervision during the encounter. Patient was provided with a letter at today's visit informing patient that this clinic is closing due to Dr. Alanis's fdc; see scanned document. Terminal prescriptions were given to the patient along with tapering instructions. 05/21/2024 Other Patient reported at a previous visit that Dr. Glynn diagnosed him with myeloma. He has opted for no treatment. Due to the [facility] to [facility] more than 1 month of opioid prescriptions at a time, remaining eRx will be sent in 28 days from the last eRx. Patient prefers all [facility] prescriptions be sent monthly as he often forgets to call for refills due to his history of stroke. The service was provided by [facility], as part of the ongoing care plan established by Harry Alanis MD, who was present in the office for direct supervision during the encounter. 12/25/2023 Other Patient reports that Dr. Glynn has diagnosed him with myeloma. He has opted for no treatment because it will kill my kidneys and I'll have to go on dialysis . Due to the [facility] inability to store more than 1 month of opioid prescriptions at a time, remaining eRx will be sent in 28 days. Patient prefers all [facility] be sent monthly as he often forgets to call for refills. Plan Of Treatment No Information Insurance Providers Payer Name Payer Address Payer Phone Subscriber Number Group Number Insured Name Patient Relationship to Insured Coverage Start Date Coverage End Date [employer] [address] [place] [address] [id number] Wayne Aguilar Self - patient is the insured Medical (General) History Medical History History ICD Code Chronic pain Low back pain Lumbar spondylosis, disc disease, spinal stenosis and spondylolisthesis Sacroiliitis Neck pain Knee pain Neuropathic pain Adjustment disorder with mixed anxiety a nd depression Diaphragmatic hernia Dysthymic disorder Hypertension Generalized anxiety and major depressive disorder Hyperlipidemia Orthostatic hypotension Pain in right shoulder Transient ischemic attack and cerebral i nfarction without residual defect 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) Sepsis, history of hospitalization CHF, history of hopitalization Stroke, 2020 Myeloma per patient report, patient has reported deferring on treatment Insomnia Sleep disorder with snoring, restless legs, morning headaches and hypersomnia (have suspected sleep apnea, however, patient has deferred on getting a sleep study and possible treatment) Obesity, mild Surgical History Surgery Date(Month/Year) Appendectomy, performed at [facility], 2016 Cataract surgeries, bilatera l, performed at [facility] in [place], [place], 2018 Right eye surgery, performed at [facility] in [place], [place] by Dr. Barfield, 02/22/22 Foot surgery, right, performed at [facility] by Dr. Charlton, 03/2023 Bone marrow aspiration, performed at [facility] in [place], [place], 09/2023 Hospitalization History Reason Date(Month/Year) Low blood pressure, treated at [facility], 06/14 025 Dehydration and high blood sugar, treate d at [facility], 10/2023 Congestive heart failure, treated at [facility] , 09/2023 Sepsis, treated at [facility], 04/25/23- 3 Onset of vertigo after chiropractic heron tment, treated at [facility], 12/2022 Right foot - stung by fish [place] the [place], treated in [facility], 04/16/22 Stroke, treated at [facility] 2020 Testing for episodes of pass ing out (unknown reason), treated at [facility], 11/2021
--- OUTSIDE RECORDS SUMMARY | 2024-12-23 14:15 | XMS_ITS | Clinical Summary ---
Author Organization [facility] Address [address] [place] [address] Care Team Providers Care Displayer Name Role Phone Laron Chauhan MD Primary Care Provider Allergies Active Allergy Reactions Criticality Noted Date Comments Adhesive Tape-Silicones Rash Medium 12/29/2012 Gabapentin Muscle Pain Low 12/17/2013 Latex 11/27/2016 Added based on information entered during case entry, please review and add reactions, type, and severity as needed Medications buPROPion (WELLBUTRIN) 100 mg tabletIndicatio ns:Proliferativ e diabetic retinopathy, type 2, with macular edema 2 times daily. A ctive citalopram (CELEXA) 40 mg tabletIndicatio ns:Proliferativ e diabetic retinopathy, type 2, with macular edema daily. Active hydrochlorothia zide 25 mg Oral tabletIndicatio ns:Proliferativ e diabetic retinopathy, type 2, with macular edema daily. Active HYDROcodone-zoila taminophen (NORCO) 10-325 mg TabletIndicatio ns:Proliferativ e diabetic retinopathy, type 2, with macular edema 2 times daily. A ctive lidocaine (XYLOCAINE) 5 % OintmentIndicat ions:Proliferat lilian diabetic retinopathy, type 2, with macular edema Active metFORMIN (GLUCOPHAGE) 500 mg tabletIndicatio ns:Proliferativ e diabetic retinopathy, type 2, with macular edema daily. Active metoprolol tartrate (LOPRESSOR) 50 mg tabletIndicatio ns:Proliferativ e diabetic retinopathy, type 2, with macular edema 2 times daily. A ctive nortriptyline (PAMELOR) 25 mg capsuleIndicati ons:Proliferati ve diabetic retinopathy, type 2, with macular edema daily. Active pregabalin (LYRICA) 75 mg CapsuleIndicati ons:Proliferati ve diabetic retinopathy, type 2, with macular edema 2 times daily. A ctive saxagliptin (ONGLYZA) 5 mg tabletIndicatio ns:Proliferativ e diabetic retinopathy, type 2, with macular edema daily. Active sildenafil (VIAGRA) 100 mg tabletIndicatio ns:Proliferativ e diabetic retinopathy, type 2, with macular edema Active blood sugar diagnostic (ACCU-CHEK KAVITA PLUS TEST STRP) StripIndication s:Proliferative diabetic retinopathy, type 2, with macular edema Active BLOOD-GLUCOSE METER (ACCU-CHEK KAVITA MONITORING MISC)Indication s:Proliferative diabetic retinopathy, type 2, with macular edema Active Lancing Device (ACCU-CHEK SOFTCLIX LANCET DEV)Indications :Proliferative diabetic retinopathy, type 2, with macular edema Active amLODIPine (NORVASC) 5 mg tablet TAKE ONE TABLET BY MOUTH ONCE A DAY FOR HEART/BLOOD PRESSURE 1 Active alogliptin (NESINA) 25 mg Tablet TAKE ONE TABLET BY MOUTH ONCE A DAY TO LOWER BLOOD SUGAR 1 Active glipiZIDE (GLUCOTROL) 5 mg tablet TAKE ONE TABLET BY MOUTH TWO TIMES A DAY BEFORE MEALS FOR DIABETES. TAKE 30 MINUTES BEFORE EATING. 1 Active semaglutide 0.25 mg or 0.5 mg(2 mg/1.5 mL) Pen Injector INJECT 0.5MG (0.375ML) UNDER THE SKIN EVERY WEEK FOR BLOOD SUGAR CONTROL. 1 Active pantoprazole (PROTONIX) 40 mg Tablet, Delayed Release (E.C.) TAKE ONE TABLET BY MOUTH TWICE A DAY TO LOWER STOMACH ACID - TAKE 30 MINUTES BEFORE MEAL(S) 0 Active brimonidine (ALPHAGAN) 0.2 % solution Administer 1 Drop in left eye 2 times daily. 5 mL 6 1 Active acetaminophen (TYLENOL) 325 mg tablet Take 325 mg by mouth every 4 hours as needed. Active Active Problems Problem Noted Date Diagnosed Date Age-related nuclear cataract, bilateral 03/04/20 18 Vitreous [...] Vitreous hemorrhage of left eye 10/14/2015 09/23/2017 Social History Tobacco Use Types Packs/Day Years Used Date Smoking Tobacco: Never Smokeless Tobacco: Never Alcohol Use Standard Drinks/Week Comments No 0 (1 standard drink = 0.6 oz pur e alcohol) Sex and Gender Information Value Date Recorded Sex Assigned at Not on file Legal Sex Male 8:05 AM CDT Gender Identity Not on file Sexual Orientation Not on file Last Filed Vital Signs Vital Sign Reading Time Taken Comments Blood Pressure 128/73 11/02/2020 11:02 AM CDT Pulse 91 11/02/2020 11:02 AM CDT Temperature 36.5 C (97.7 F) 11/02/2020 11:02 AM CDT Respiratory Rate 16 11/02/2020 10:53 AM CDT Oxygen Saturation 96% 11/02/2020 11:02 AM CDT Inhaled Oxygen Concentration - - Weight 90.3 kg (199 lb) 11/02/2020 8:25 AM CDT Height 175.3 cm (5' 9 ) 11/02/2020 8:25 AM CDT Body Mass Index 29.39 11/02/2020 8:25 AM CDT Plan of Treatment Health Maintenance Due Date Last Done Comments DIABETES ANNUAL FOOT EXAM 1978 DIABETES MICROALBUMIN ANNUAL SCREEN 1978 LDL CHOLESTEROL ANNUAL 1978 COLORECTAL SCREENING 2005 Colorectal Cancer Screening 2005 FIT-DNA Q 3 years 2005 FIT/FOBT Q 1 year 2005 Flex Sig/CT Colonography Q 5 years 2005 ZOSTER VACCINE (1 of 2) 2010 RSV VACCINE (60+ or ) (1 - Risk 60-74 years 1-dose series) 2020 DIABETES HBA1C Q 6 MONTHS 01/13/2021 07/13/2020 DIABETES ANNUAL RETINAL EXAM 11/03/2021, 11/03/2020, 11/03/2020, Additional history exists INFLUENZA VACCINE (#1) 2024 02/11/2018 DTAP/TDAP/TD VACCINES (2 - T d or Tdap) 03/02/2029 03/02/2019 Procedures Procedure Name Priority Date/Time Associated Diagnosis Comments IN INTRAVITREAL NJX PHARMACOLOGIC AGT SPX Routine 12/22/2015 11:47 AM CDT Type 2 diabetes mellitus with proliferative diabetic retinopathy with macular edema ([facility]) from Last 3 Months or Most Recently Relevant to Health Maintenance Results * IN INTRAVITREAL NJX PHARMACOLOGIC AGT SPX (12/22/2015 11:47 AM CDT) Narrative [facility] OPHTHAL[facility] - 12/22/2015 11:47 AM CDT Pollo Barfield MD 12/22/2015 11:47 AM PROCEDURE NOTE Patient: Willem Aguilar / 55 y.o. / male : 1960 ICD-10-CM ICD-9-CM 1. Type 2 diabetes mellitus with proliferative diabetic retinopathy with macular edema E11.351 250.50 IN AVASTIN 2.5 MG/0.1 ML MTHD OF ADM [...] the procedure well. Pollo Barfield M.D. Retina Operations Manager/Coordinator Pollo Barfield MD OPHTH OTHER Final Resul t [facility] [id number] [address] [place] [address] from Last 3 Months or Most Recently Relevant to Health Maintenance [place] [address] [place] [address] [facility] [facility] Care Teams Displayer Relationship Specialty Start Date End Date Laron Chauhan MD [address] [facility] [place] [address] PCP - General Internal Medicine 01/02/17
--- OUTSIDE RECORDS SUMMARY | 2024-12-23 14:15 | XMS_ITS | Patient Health Record ---
Author Organization [facility] Address [address] [place] [address] Care Team Providers Care Funeral Greeter Name Role Phone Pam Brink MD Primary Care Provider Chrissy Rasmussen Unavailable [phone] [place], [place] Unavailable Unavailable Allergies No Known Allergies Reason For Referral No Information Medications Medication SIG (Take, Route, Frequency, Duration) Notes Start Date End Date Status Metoprolol Succinate 50 MG Capsule ER 24 Hour Sprinkle 1 capsule Orally Once a day Active Insulin Glargine 100 UNIT/ML Solution Pen-injector as directed Subcutaneous 35 Units Active Reglan 10 MG Tablet 1 tablet Orally once ; Duration: 1 days 06/18/2022 Active Docusate Sodium 100 MG Capsule 2 capsule as needed Orally twice a day Active Fish Oil 1000 MG Capsule 2 capsules Oral ly Twice a day Active traMADol HCl 50 MG Tablet 1 tablet as ne eded Orally max of two tablets a day Active Semaglutide (1 MG/DOSE) 4 MG/3ML Solution Pen-injector as directed Subcutaneous Active glipiZIDE 10 MG Tablet two tablets Orall y twice daily Active Lisinopril 10 MG Tablet 1 tablet Orally Once a day Active Sildenafil Citrate 100 MG Tablet 1 tablet as needed Orally Once a day Active hydroCHLOROthiazide 12.5 MG Capsule 1 capsule Orally twice a day Active Multivitamin - Tablet 1 tablet Orally On ce a day Active Pregabalin 150 MG Capsule 1 capsule Orally Active Magnesium 400 MG Tablet as directed Oral ly every other day Active Clopidogrel Bisulfate 75 MG Tablet 1 tablet Orally Once a day Active tiZANidine HCl 4 MG Tablet 1 tablet as n eeded Orally twice a day Active Vitamin D 50 MCG (1999) Tablet 1 tablet Orally Once a day Active Pantoprazole Sodium 40 MG Tablet Delayed Release 1 tablet Orally Once a day Active Aspirin 81 MG Tablet Delayed Release 1 tablet Orally Once a day Active Atorvastatin Calcium 80 MG Tablet 1 tablet Orally Once a day Active amLODIPine Besylate 5 MG Tablet 1 tablet Orally Once a day Active Social History Tobacco Use: Social History Observation Description Date Details (start date - stop date) Never Smoker NA - NA Social History Drugs/Alcohol: Social Info Question Answer Notes Alcohol Screen (Audit-C) Did you have a drink containing alcohol in the past year? No Points 0 Interpretation Negative Tobacco Use: Social Info Question Answer Notes xTobacco Use/Smoking Are you a nonsmoker Problems Problem Type SNOMED Code ICD Code Onset Dates Problem Status W/U Status Risk Notes Problem Type II diabetes mellitus without complication (722941766) Type 2 diabetes mellitus without complications (E11.9) Active confirmed Problem Obstructive uropathy (4685770) Other obstructive and reflux uropathy (N13.8) Active confirmed Problem Erectile dysfunction co-occurrent and due to arterial insufficiency (disorder) (657986589317279) Erectile dysfunction due to arterial insufficiency (N52.01) Active confirmed Problem Long-term current use of insulin (353934956) shelter (current) use of insulin (Z79.4) Active confirmed Problem Lower urinary tract symptoms due to benign prostatic hypertrophy (81579971029111) Benign prostatic hyperplasia with lower urinary tract symptoms (N40.1) Active confirmed Problem Erectile dysfunction (disorder) (089277618) Erectile dysfunction, unspecified erectile dysfunction type (N52.9) Active confirmed Problem Constipation (49786809) Constipation, unspecified constipation type (K59.00) Active confirmed Problem Type 2 diabetes mellitus with other specified complication, unspecified whether nursing home insulin use (E11.69) Active confirmed Plan Of Treatment No Information Insurance Providers Payer Name Payer Address Payer Phone Subscriber Number Group Number Insured Name Patient Relationship to Insured Coverage Start Date Coverage End Date [employer] [address] [place] [phone] [id number] Wayne Aguilar Self - patient is the insured Medical (General) History Medical History History ICD Code chicken pox erectile dysfunction diabetes back trouble hypertension stroke Surgical History Surgery Date(Month/Year) appendectomy 2019 Hospitalization History Reason Date(Month/Year) stroke 2021
--- OUTSIDE RECORDS SUMMARY | 2024-12-23 14:15 | XMS_ITS | Encounter Summary ---
Author Organization [facility] Address [address] [facility] [address] [place] [address] Phone Care Team Providers Care Message Broker Developer Name Role Phone Pam Diaz MD Primary Care Provider [phone] Encounter Details Date Type Department Care Team (Late st Contact Info) Description 03/02/2019 Orders Only [facility] [address] [facility] [address] [place] [address] Type 2 diabetes mellitus with diabetic nephropathy (HCC) Social History Tobacco Use Types Packs/Day [...] Description 02/22/2025 9:00 AM CDT Office Visit [facility] [address] [place] [address] Eleni Acevedo MD [address] [facility] [address] [place] [address] documented as of this encounter Visit Diagnoses Diagnosis Type 2 diabetes mellitus with diabetic nephropathy (HCC) documented in this encounter Care Teams Message Broker Developer Relationship Specialty Start Date End Date Pam Diaz MD [address] [place] [address] PCP - General Family Medicine 09/27/20 documented as of this encounter
== END 2024-12-22 13:15 | disposition home or self-care (01) ==
PROVIDERS: Emergency Provider Emergency Medicine; PCP Family Medicine
DX: I95.1 Orthostatic hypotension (principal); E86.0 Dehydration; Z79.01 Long term (current) use of anticoagulants; Z79.82 Long term (current) use of aspirin; Z79.4 Long term (current) use of insulin; E78.5 Hyperlipidemia, unspecified; I10 Essential (primary) hypertension
CPT/HCPCS: 36416; 80053; 81001; 82962; 83690; 85025; 85610; 93005; 96374; 99284; J2405; J7030

== ENCOUNTER 2024-12-24 08:41 | Oncology outpatient (recurring) (ONCR) | payer OTHER, SELFPAY ==
[2024-12-24 09:13] LABS: Hematocrit 34.6 % (37-53); Hemoglobin 11.50 g/dL (11.27-16.99); Mean Corpuscular HGB Conc 33.2 g/dL (30-55); Mean Corpuscular Hemoglobin 32.5 pg (27-33); Mean Corpuscular Volume 97.7 fl (82-101); Nucleated Red Blood Cells % 0 %; Platelet Count 240 10^3/cmm (157-399); Red Blood Count 3.54 10^6/uL (3.85-5.65); White Blood Count 4.19 10^3/uL (3.29-11.43)
[2024-12-24 09:32] LABS: Alanine Aminotransferase 38 U/L (0-41); Albumin Level 3.7 g/dL (3.5-5.2); Alkaline Phosphatase 65 U/L (40-130); Anion Gap 13.5 (5-19); Aspartate Amino Transferase 25 U/L (0-40); Blood Urea Nitrogen 47 mg/dL (8-23); Calcium 8.9 mg/dL (8.5-10.5); Carbon Dioxide 21 mmol/L (22-29); Chloride 103 mmol/L (98-107); Creatinine Clr Calc Pharmacy 38.1119; Globulin 5.5 g/dL (1.3-4.6); Glucose 136 mg/dL (65-115); Osmolality Calculated 290 mOsm/kg (285-295); Potassium 4.5 mmol/L (3.5-5.1); Sodium 133 mmol/L (136-145); Total Protein 9.2 g/dL (6.6-8.7)
== END 2025-01-10 23:59 | disposition home or self-care (01) ==
PROVIDERS: PCP Family Medicine; Visit Provider Internal Medicine
DX: C90.00 Multiple myeloma not having achieved remission (principal); R42 Dizziness and giddiness
CPT/HCPCS: 36415; 80053; 85025; 99213

== ENCOUNTER → 2025-02-09 06:49 | Outpatient (BNVA) | payer OTHER, SELFPAY | PROVIDERS: PCP Family Medicine; Visit Provider Podiatrist Foot & Ankle Surgery | DX: L60.8 Other nail disorders (principal); E11.8 Type 2 diabetes mellitus with unspecified complications; E11.42 Type 2 diabetes mellitus with diabetic polyneuropathy; I73.9 Peripheral vascular disease, unspecified; Z89.421 Acquired absence of other right toe(s); Q66.71 Congenital pes cavus, right foot; Q66.72 Congenital pes cavus, left foot; S91.331A Puncture wound without foreign body, right foot, initial encounter; L97.321 Non-pressure chronic ulcer of left ankle limited to breakdown of skin; W26.8XXA Contact with other sharp object(s), not elsewhere classified, initial encounter; E11.621 Type 2 diabetes mellitus with foot ulcer; Z79.4 Long term (current) use of insulin | CPT/HCPCS: 99214 ==

== ENCOUNTER 2025-03-15 06:30 | Outpatient (CLI) | payer OTHER, SELFPAY ==
--- NOTE | 2025-03-15 07:02 | MR_ITS ---
WS: [id number] MRI BRAIN WITHOUT CONTRAST HISTORY: VERTIGO COMPARISON: 03/02/2021 TECHNIQUE: Diffusion imaging, multiplanar T1, T2 and FLAIR imaging obtained. No evidence for acute infarct or hemorrhage. Rosales-white matter differentiation is normal. Remote infarct in the posterior LEFT bro radiata is reidentified. There are numerous T2 and FLAIR signal hyperintensities throughout the white matter which are chronic. No obvious change since the prior study. No mass or signal abnormality at the cerebellopontine angles. Mild symmetric volume loss Ventricles and extra-axial spaces are normal. No inferior displacement of cerebellar tonsils. The sella turcica and pituitary gland are unremarkable. Dural venous sinuses and [place] demonstrate no abnormality on this unenhanced studies. Normal flow voids. Paranasal sinuses: Clear. Mastoid air cells: Normal. Calvarium and scalp: Intact. MR/MR head wo con* [id number] IMPRESSION: 1. No acute diffusion abnormality or infarct. 2. Mild to moderate small vessel disease and a small remote infarct in the LEF T centrum semiovale. No significant change since 03/02/2021. 3. No mass or mass effect at the cerebellopontine angles. 4. No significant paranasal sinus disease. 5. Mild cerebral atrophy.
== END 2025-03-15 06:31 | disposition home or self-care (01) ==
LOC: RAD 06:31
PROVIDERS: PCP Family Medicine; Visit Provider Family Medicine Geriatric Medicine
DX: G31.89 Other specified degenerative diseases of nervous system (principal); G93.89 Other specified disorders of brain; I67.89 Other cerebrovascular disease; Z86.73 Personal history of transient ischemic attack (TIA), and cerebral infarction without residual deficits
CPT/HCPCS: 70551

== ENCOUNTER 2025-03-17 07:12 | Outpatient (CLI) | payer OTHER, SELFPAY ==
--- NOTE | 2025-03-17 07:16 | USCV_ITS ---
Wayne Aguilar Age: 64 Gender: M : 1960 Exam Date: 03/17/2025 07:23 Ordering Phys: Eddie Trotter MD Technologist: Exam Location: [facility] [place] Indication: vertigo Risk Factors: Previous Vascular Surgery: Right Brachial BP: / Left Brachial BP: / Right Left Velocity (cm/s) Spectral Plaque Velocity (cm/s) Spectral Plaque Syst/Diast Broadening Syst/Diast Broadening 78.90/ 15.40 Prox CCA 93.60 / 21.00 102.10/19.90 Mid CCA 120.50/ 19.30 93.70/ 16.60 Distal CCA 115.20/ 25.90 79.90/ 23.60 Prox ICA 53.90 / 12.20 78.30/ 22.50 Mid ICA 69.90 / 22.10 67.60/ 16.10 Distal ICA 82.80 / 25.60 115.50 ECA 152.80 0.90 ICA/CCA 0.50 Antegrade Vertebral Antegrade 63.20/ 19.00 cm/s 73.90/ 23.00 cm/s Tri Subclavian Tri 234.6 238.3 0 0 CONCLUSIONS Right ICA stenosis <50%. Mild atheromatous plaque right carotid bulb/ICA. Left ICA stenosis <50%. Mild atheromatous plaque left carotid bulb/ICA. Intimal thickening in the common carotid arteries and internal carotid arteries bilaterally. Normal antegrade Doppler flow noted in the right vertebral artery. Normal antegrade Doppler flow noted in the left vertebral artery. Nish Olguin MD (Electronically Signed) Final Date: 17 March 2025 11:18 S
== END 2025-03-17 07:13 | disposition home or self-care (01) ==
PROVIDERS: PCP Family Medicine; Visit Provider Family Medicine Geriatric Medicine
DX: H81.4 Vertigo of central origin (principal); I65.23 Occlusion and stenosis of bilateral carotid arteries
CPT/HCPCS: 93880

== ENCOUNTER 2025-03-25 06:46 | Outpatient (CLI) | payer OTHER, SELFPAY ==
--- NOTE | 2025-03-25 07:01 | USCV_ITS ---
Wayne Aguilar Age: 64 Gender: M : 1960 Exam Date: 03/25/2025 07:13 Ordering Phys: Eddie Trotter MD Technologist: Exam Location: [facility] [place] Indication: tia near syncope BP: 130 / 80 HR: 93 Rhythm: Sinus Technical Quality: Adequate MEASUREMENTS (Male / Female) Normal Values 2D ECHO LV Diastolic Diameter PLAX 3.5 cm 4.2 - 5.9 / 3.9 - 5.3 cm IVS Diastolic Thickness 2.1 cm 0.6 - 1.0 / 0.6 - 0.9 cm IVS Systolic Thickness 2.2 cm LVPW Diastolic Thickness 1.6 cm 0.6 - 1.0 / 0.6 - 0.9 cm LVPW Systolic Thickness 2.1 cm LVOT Diameter 2.0 cm LV Ejection Fraction 2D Teich 61.1 % LV Ejection Fraction MOD 4C 49.9 % LV Ejection Fraction MOD 2C 68.0 % LV Ejection Fraction 2C AL 67.7 % LA Diameter 4.3 cm RA Systolic Volume 4C AL 43.4 ml RA Systolic Volume 4C MOD 41.0 ml LA Sys Volume AL 61.9 cm cubed LA Sys Volume Index AL 31.2 cm cubed/m squared Aorta at Sinotubular Diameter 3.2 cm IVC Diameter 1.8 cm M-MODE LA Ao Ratio MM 1.3 AV Cusp Separation MM 2.3 cm DOPPLER AV Peak Velocity 111.0 cm/s LVOT Peak Velocity 87.0 cm/s AV Area Cont Eq vti 2.7 cm squared AV Area Cont Eq pk 2.5 cm squared MV Peak Velocity 150.0 cm/s MV Area PHT 4.3 cm squared Mitral E to A Ratio 120.4 TV Peak Velocity 145.0 cm/s TR Peak Velocity 160.0 cm/s TR Peak Gradient 10.2 mmHg TV Peak E Velocity 109.0 cm/s PV Peak Velocity 101.0 cm/s FINDINGS Left Ventricle Normal left ventricular size and systolic function, EF of 55- 60%. No regional wall motion abnormalities. Right Ventricle Normal in size and function Right Atrium Normal in size Left Atrium Dilated IA Septum Grossly normal Mitral Valve Mild mitral annular calcification. Trace mitral regurgitation. Aortic Valve Structurally normal aortic valve. No significant stenosis. Tricuspid Valve Insufficient TR jet to calculate RVSP Pulmonic Valve Not well visualized Pericardium Normal Aorta Normal in size IVC Appears to be normal CONCLUSIONS LV systolic function is normal with EF of 55-60% Left atrial dilation Trace mitral regurgitation. Hussain Flores MD (Electronically Signed) Final Date: 28 March 2025 12:17 S
== END 2025-03-25 06:47 | disposition home or self-care (01) ==
LOC: RAD 06:46
PROVIDERS: PCP Family Medicine; Visit Provider Family Medicine Geriatric Medicine
DX: R01.1 Cardiac murmur, unspecified (principal); G45.9 Transient cerebral ischemic attack, unspecified; I51.7 Cardiomegaly; I34.0 Nonrheumatic mitral (valve) insufficiency
CPT/HCPCS: 93306

== ENCOUNTER → 2025-03-30 06:57 | Outpatient (BNVA) | payer OTHER, SELFPAY | PROVIDERS: PCP Family Medicine; Visit Provider Podiatrist Foot & Ankle Surgery | DX: L60.8 Other nail disorders (principal); E11.8 Type 2 diabetes mellitus with unspecified complications; E11.42 Type 2 diabetes mellitus with diabetic polyneuropathy; I73.9 Peripheral vascular disease, unspecified; Z89.421 Acquired absence of other right toe(s); Q66.71 Congenital pes cavus, right foot; Q66.72 Congenital pes cavus, left foot; Z79.4 Long term (current) use of insulin | CPT/HCPCS: 99213 ==